=== PATIENT | male | born 1995 | race Caucasian/White ===

== ENCOUNTER 2020-12-31 17:16 | Inpatient (IN) | payer OTHER, SELFPAY ==
[2020-12-31 19:23] VITALS: BMI 23.7
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
[2021-01-01] MEDS: traZODone HCL 50 MG TABLET PO (01:27)
[2021-01-01] MEDS: hydrOXYzine HCL 25 MG TABLET PO ×2 (01:27→23:56)
[2021-01-01] MEDS: Nicotine Polacrilex 2 MG GUM 4 MG BUCCAL ×6 (06:43→23:40)
[2021-01-01 10:00] VITALS: BP 137/74; PULSE 98; RESP 16; TEMP 36.2; O2SAT 99
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
[2021-01-01] MEDS: risperiDONE 2 MG TABLET PO ×2 (11:20→22:38)
--- NOTE | 2021-01-01 14:20 | MHC.CLN ---
RE: CONSULT REVIEWED WITH PT MEAL OPTIONS R/T PREFERENCE FOR VEGAN DIET PT REPORTS HE CONSUMES DAIRY, MILK AND CHEESE PT DISLIKES EGGS BUT ALSO STATED HE HAS CONSUMED MEAT/EGGS IN THE PAST. REVIEWED FOODS AVAILABLE ON FACILITY MENU WITH PT THAT ARE APPROPRIATE DISCUSSED PT PREFERENCE WITH KITCHEN GSR TO VISIT PT DAILY TO REVIEW MEAL CHOICES WILL ADD VEGETARIAN TO CURRENT DIET ORDER
[2021-01-01] MEDS: risperiDONE 1 MG TABLET PO (15:10)
[2021-01-01 18:00] VITALS: BP 130/86; PULSE 110; TEMP 36.7
[2021-01-01] MEDS: QUEtiapine Fumarate 200 MG TABLET PO (19:57)
[2021-01-02] MEDS: Nicotine Polacrilex 2 MG GUM 4 MG BUCCAL ×8 (05:08→20:47)
[2021-01-02] MEDS: risperiDONE 2 MG TABLET PO ×2 (05:59→19:04)
[2021-01-02 06:00] VITALS: BP 129/72; PULSE 111; RESP 16; TEMP 36.4; O2SAT 97
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
[2021-01-02] MEDS: risperiDONE 1 MG TABLET PO (13:37)
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
[2021-01-02 18:27] VITALS: BP 147/64; PULSE 90; TEMP 36.7
[2021-01-02] MEDS: QUEtiapine Fumarate 200 MG TABLET PO (20:02)
[2021-01-03 06:00] VITALS: BP 139/75; PULSE 78; RESP 16; TEMP 36.2; O2SAT 98
[2021-01-03] MEDS: risperiDONE 2 MG TABLET PO ×2 (08:09→19:59)
[2021-01-03 08:21] LABS: MANUAL DIFF FLAG NO
[2021-01-03 08:22] LABS: Basophils Percent Auto 0.6 % (0-2); Hemoglobin 14.5 g/dl (14.0-18.0); Imm Gran Abs Auto 0.02 X10*3/uL (0.00-0.03); Imm Gran Pct Auto 0.4 % (0.0-0.4); Lymphocytes Absolute Auto 1.8 X10*3/uL (1.2-4.9); Lymphocytes Percent Auto 34.2 % (20-40); Mean Corpuscular HGB Conc 34.5 g/dl (31.0-36.0); Mean Corpuscular Hemoglobin 31.3 pg (27.0-33.0); Mean Corpuscular Volume 90.7 fL (80-98); Mean Platelet Volume 10.4 fL (9.4-12.4); Monocytes Absolute Auto 0.6 X10*3/uL (0.1-1.2); Monocytes Percent Auto 11.5 % (2-11); Neutrophils Absolute Auto 2.8 X10*3/uL (2.0-8.3); Neutrophils Percent Auto 53.3 % (45-73); Platelet Count 271 X10*3/uL (160-400); Red Blood Count 4.63 X10*6/uL (4.60-5.80); Red Cell Distribution Width 11.9 % (11.0-16.0); White Blood Count 5.3 X10*3/uL (4.8-10.8)
[2021-01-03] MEDS: Nicotine Polacrilex 2 MG GUM 4 MG BUCCAL ×2 (09:12→21:26)
[2021-01-03 09:55] LABS: Anion Gap 10 (12-20); Blood Urea Nitrogen 18 mg/dL (9-16); Carbon Dioxide 30 mmol/L (22-29); Chloride 104 mmol/L (96-108); Cholesterol 161 mg/dL; Creatinine Clr Calc Pharmacy 148.2; Estimated Glomerular Filt Rate > 60; HDL Cholesterol 47 mg/dL; LDL Cholesterol Calculated 74 mg/dl; Potassium 4.6 mmol/L (3.3-5.1); Sodium 139 mmol/L (135-145); Triglycerides 204 mg/dL
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
[2021-01-03 10:27] LABS: Reflex LDLD? No
[2021-01-03 10:50] LABS: Estimated Average Glucose 88 mg/dL; Hemoglobin A1c % 4.7 %
[2021-01-03] MEDS: risperiDONE 1 MG TABLET PO (13:17)
[2021-01-03 16:15] VITALS: BP 129/71; PULSE 83; TEMP 36.8
[2021-01-03] MEDS: QUEtiapine Fumarate 200 MG TABLET PO (19:58)
[2021-01-03] MEDS: Acetaminophen 325 MG TABLET 650 MG PO (21:26)
[2021-01-04] MEDS: hydrOXYzine HCL 25 MG TABLET PO (01:18)
[2021-01-04] MEDS: QUEtiapine Fumarate 50 MG TABLET PO (01:18)
[2021-01-04] MEDS: Nicotine Polacrilex 2 MG GUM 4 MG BUCCAL ×5 (05:01→16:38)
[2021-01-04 06:00] VITALS: BP 131/81; PULSE 95; RESP 16; TEMP 36.2; O2SAT 98
[2021-01-04] MEDS: risperiDONE 2 MG TABLET PO ×2 (08:15→21:04)
[2021-01-04] MEDS: diphenhydrAMINE HCL 25 MG TABLET 50 MG PO (10:26)
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
[2021-01-04] MEDS: risperiDONE 1 MG TABLET PO (13:36)
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
--- NOTE | 2021-01-04 14:36 | PC.NURSE ---
Spoke to Mother who requested the Doctor not start Depakote tonight We want to do some more research . Dr Balderas notified.
[2021-01-04 18:00] VITALS: BP 141/83; PULSE 113; TEMP 37.1
[2021-01-04] MEDS: traZODone HCL 50 MG TABLET PO (21:04)
[2021-01-05 06:00] VITALS: BP 146/74; PULSE 99; TEMP 36.1; O2SAT 99
[2021-01-05] MEDS: risperiDONE 2 MG TABLET PO ×2 (08:47→20:42)
[2021-01-05] MEDS: Nicotine Polacrilex 2 MG GUM 4 MG BUCCAL ×5 (08:49→18:37)
[2021-01-05] MEDS: risperiDONE 1 MG TABLET PO (14:25)
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
[2021-01-05 18:00] VITALS: BP 142/70; PULSE 91; TEMP 36.8
[2021-01-05] MEDS: traZODone HCL 50 MG TABLET PO (20:41)
[2021-01-06 06:00] VITALS: BP 133/74; PULSE 86; RESP 16; TEMP 36.4; O2SAT 86
[2021-01-06] MEDS: risperiDONE 2 MG TABLET PO (08:48)
[2021-01-06] MEDS: hydrOXYzine HCL 25 MG TABLET PO (10:46)
[2021-01-06] MEDS: risperiDONE 1 MG TABLET PO (13:23)
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
[2021-01-06 16:46] VITALS: BP 109/65; PULSE 88; TEMP 36.8; O2SAT 97
[2021-01-06] MEDS: Nicotine Polacrilex 2 MG GUM 4 MG BUCCAL (17:56)
[2021-01-06] MEDS: traZODone HCL 50 MG TABLET PO (20:46)
[2021-01-06] MEDS: risperiDONE 3 MG TABLET PO (20:46)
[2021-01-07] MEDS: Nicotine Polacrilex 2 MG GUM 4 MG BUCCAL ×4 (04:50→20:41)
[2021-01-07 06:00] VITALS: BP 131/80; PULSE 96; TEMP 36.7; O2SAT 98
[2021-01-07] MEDS: risperiDONE 2 MG TABLET PO (08:29)
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
[2021-01-07 18:00] VITALS: BP 139/87; PULSE 98; TEMP 36.6; O2SAT 98
[2021-01-07] MEDS: risperiDONE 3 MG TABLET PO (20:38)
[2021-01-07] MEDS: traZODone HCL 50 MG TABLET PO (22:35)
[2021-01-08 08:30] VITALS: BP 130/89; PULSE 101; RESP 16; TEMP 36.8; O2SAT 96
[2021-01-08] MEDS: risperiDONE 2 MG TABLET PO (08:30)
[2021-01-08] MEDS: Nicotine Polacrilex 2 MG GUM 4 MG BUCCAL (09:47)
== END 2021-01-08 10:30 | disposition home or self-care (01) | DRG 753 ==
PROVIDERS: Admitting Provider Psychiatry & Neurology Psychiatry; PCP Internal Medicine; Visit Provider Psychiatry & Neurology Psychiatry
DX: F31.9 Bipolar disorder, unspecified (principal); F14.10 Cocaine abuse, uncomplicated; F17.210 Nicotine dependence, cigarettes, uncomplicated; F41.9 Anxiety disorder, unspecified; F90.9 Attention-deficit hyperactivity disorder, unspecified type; Z71.6 Tobacco abuse counseling; Z88.2 Allergy status to sulfonamides; Z79.899 Other long term (current) drug therapy
CPT/HCPCS: 36415; 80051; 80061; 82565; 83036; 84520; 85025; Q0163

== ENCOUNTER 2022-12-31 10:03 | Inpatient (IN) | payer OTHER, SELFPAY ==
[2022-12-31 10:09] VITALS: BP 140/80; PULSE 116; O2SAT 98
[2022-12-31 10:13] VITALS: BP 148/83; PULSE 97; RESP 18; TEMP 36.5; O2SAT 99; BMI 23.2
--- NOTE | 2022-12-31 10:25 | ED_ITS ---
HPI - Psych General Chief Complaint: Psychiatric Symptoms Stated Complaint: MANIC EPISODE,AMS Time Seen by Provider: 12/31/22 10:11 Source: patient, RN notes reviewed and old records reviewed History of Present Illness HPI Narrative: 27-year-old male with a past medical history of bipolar, substance abuse, ADHD, anxiety, presenting to the ED via EMS from home after mother called 911 due to patient exhibiting manic episode. History obtained from mother who states patient has been on and off his medications x months however patient's symptoms became unmanageable last night. Mother states patient was up all night drinking energy drinks, excessively cleaning home and they woke up to all of her belongings being out on the front lawn. mother also reports patient was drinking large bottle of Tequila last night. Patient denies EtOH or illicit substance use, SI/HI, auditory or visual hallucinations, injury/trauma or fall Related Data Previous Rx's Medication Instructions Recorded hydroxyzine HCl 25 mg tablet 25 mg PO TID PRN mild Anxiety 30 01/07/21 days #30 tabs risperidone 2 mg tablet 2 mg PO DAILY 30 days #30 tabs 01/07/21 risperidone 3 mg tablet 3 mg PO BEDTIME 30 days #30 tabs 01/07/21 trazodone 50 mg tablet 50 mg PO BEDTIME PRN insomnia 30 01/07/21 days #30 tabs Allergies Allergy/AdvReac Type Severity Reaction Status Date / Time strawberry Allergy Mild Itching Verified 12/31/22 10:34 cefazolin Allergy Unknown Itching Verified 12/31/22 10:34 sulfamethoxazole Allergy Unknown Itching Verified 12/31/22 10:34 [From Bactrim] trimethoprim [From Bactrim] Allergy Unknown Itching Verified 12/31/22 10:34 lorazepam [From Ativan] AdvReac Agitated Verified 12/31/22 10:34 Review of Systems 2 Review of Systems: Constitutional: No Fever, No Chills, No Fatigue, No Malaise ENT/Mouth: No Ear Pain, No sore throat, No Rhinorrhea, No Swallowing Difficulty Eyes: No Eye Pain, No Swelling, No Redness, No Foreign Body, No Discharge, No Vision Changes Cardiovascular: No Chest Pain, No SOB, No Palpitations Respiratory: No Cough, No Sputum, , No Dyspnea Gastrointestinal: No Nausea, No Vomiting, No Diarrhea, No Constipation, No Abdominal pain Genitourinary: No Dysuria, No Urinary Frequency, No Hematuria, No Flank Pain Musculoskeletal: No joint pain, No Myalgias, No Joint Swelling Skin: No Skin Lesions, No rash Neuro: No Weakness, No Numbness, No Headache Psych: No Anxiety/Panic, No Depression, No SI/HI/AH/VH, +Social Issues, +manic Yes all other systems are reviewed and are negative Constitutional: Constitutional: Reports as per [facility] Past Medical History Attestation statement: The following information was validated with the patient. Source: old records reviewed Medical History Bipolar 1 disorder Cannabis abuse ADHD Anxiety Social History Social History Household Members: Family Housing: House Do you presently have visiting nurse or other home services: No Patient Tobacco Use Status: Current everyday Tobacco user Tobacco use type: Cigar e-Cigarette/Vaping Use: Currently Using Second Hand Smoke Exposure: No Substance Use Type: Marijuana Advance Directives: No Healthcare Proxy: No Guardian: No service: No Sexual orientation: Did not discuss. Physical Exam 2 Vital Signs: Vital Signs: Last Vital Signs Temp 97.7 F 12/31/22 10:13 Pulse 97 12/31/22 10:13 Resp 18 12/31/22 10:13 BP 148/83 H 12/31/22 10:13 Pulse Ox 99 12/31/22 10:13 O2 Del Method Room Air 12/31/22 10:13 BMI result Body Mass Index 23.2 Const: General: cooperative and no acute distress O rientation/consciousness: patient oriented x3 Limitations: no limitations HEENT: Head: Yes normal to inspection and Yes atraumatic Ears: hearing grossly normal bilaterally General nose exam: Normal external nose present Face and sinus: Yes normal facial exam Eyes: General: appearance normal, both eyes and all related structures EOM: EOMs intact bilaterally Neck: Neck: Yes normal visual inspection and Yes no meningeal signs Resp: Effort & Inspection: normal respiratory effort and no respiratory distress Auscultation: clear to auscultation bilaterally Cardio: Rate: regular rate Heart sounds: S1 normal heart sound present and S2 normal heart sound present GI: Inspection: Yes normal to inspection Palpation (GI): Soft to palpation, nontender, no guarding and not rigid : General: Yes no CVA tenderness Back/Spine/Pelvis: Back: no CVA tenderness Skin: Rashes: no rashes Wounds: no wounds Neuro: General: patient oriented x3, tone normal, no meningeal signs and CN's II-XI intact bilaterally Cranial nerves: Yes CN's II-XII intact bilaterally Gait exam (Neuro): Normal gait present Extrem: General: Yes normal to inspection Psych: Attitude: cooperative Thought process: Confabulating thought process present Thought content: suicidality and no homicidality Insight: Poor insight present (Psych) Judgement: Poor judgement present (Psych) Course Course Course Narrative: - labs reassuring. -CRUM pending -CARE team evaluated patient and he will now be inpatient bed search. Physician observation initiated at 14:50 Medications Administered Discontinued Medications Generic Name Dose Route Start Last Admin Trade Name Freq PRN Reason Stop Dose Admin Risperidone 2 mg 12/31/22 13:58 12/31/22 14:08 Risperidone 2 Mg Tablet PO 12/31/22 13:59 2 mg ONCE ONE Administration Medical Decision Making Medical Decision Making [facility] Narrative: 27-year-old male with a past medical history of bipolar, substance abuse, ADHD, anxiety, presenting to the ED via EMS from home after mother called 911 due to patient exhibiting manic episode. on exam vital signs stable, NAD, nontoxic appearing patient, cooperative during this writers evaluation, not forthcoming with information. history obtained from mother. Rule out metabolic/infectious etiologies vs medication noncompliance vs polysubstance abuse plan: Labs, tox screen, CARE team consult Please refer to course for remaining clinical decision making, interpretation of labs/imaging results, and discussions with consultants and/or family members. Differential Diagnosis Differential Diagnoses: The differential diagnosis associated with the presentation includes As above Admission/Observation Consideration of admission/observation: Escalation of care including admission/observation considered Consult Healthcare Provider Management of the patient was discussed with: Behavioral Health Provider Lab Data [facility] Lab Attestation statement: I reviewed the patient's lab results. 12/31/22 10:49 12/31/22 10:49 Labs: Lab Results 12/31/22 Range/Units 10:49 WBC 9.6 (4.8-10.8) X10*3/uL RBC 5.04 (4.60-5.80) X10*6/uL Hgb 15.7 (14.0-18.0) g/dl Hct 45.4 (42.0-52.0) % MCV 90.1 (80.0-98.0) fL MCH 31.2 (27.0-33.0) pg MCHC 34.6 (31.0-36.0) g/dl RDW 11.9 (11.0-16.0) % Plt Count 276 (160-400) X10*3/uL MPV 11.0 (9.4-12.4) fL Immature Gran % (Auto) 0.3 (0.0-0.4) % Neut % (Auto) 85.9 H (45-73) % Lymph % (Auto) 8.8 L (20-40) % [place] % (Auto) 4.6 (2-11) % Eos % (Auto) 0.0 (0-4) % Baso % (Auto) 0.4 (0-2) % Lymph # (Auto) 0.8 L (1.2-4.9) X10*3/uL [place] # (Auto) 0.4 (0.1-1.2) X10*3/uL Eos # (Auto) 0.0 (0.0-0.4) X10*3/uL Baso # (Auto) 0.0 (0.0-0.2) X10*3/uL Abs Immat Gran (auto) 0.03 (0.00-0.03) X10*3/uL Absolute Neuts (auto) 8.3 (2.0-8.3) x10*3/uL Absolute Nucleated RBC 0.000 (0.0-0.012) X10*3/uL Nucleated RBC % (auto) 0.0 (0.0-0.2) /100WBC Sodium 141 (135-145) mmol/L Potassium 4.3 (3.3-5.1) mmol/L Chloride 104 (96-108) mmol/L Carbon Dioxide 27 (22-29) mmol/L Anion Gap 14 (12-20) BUN 17 H (9-16) mg/dL Creatinine 0.99 (0.5-1.4) mg/dL Estim Creat Clear Calc 117.7 Estimated GFR > 60 Random Glucose 121 H (60-115) mg/dL Calcium 10.2 (8.4-10.2) mg/dL Magnesium 2.2 (1.6-2.6) mg/dL Total Bilirubin 1.6 H (0.0-1.0) mg/dL Direct Bilirubin 0.5 (0.0-0.5) mg/dL AST 22 (5-37) U/L ALT 32 (0-40) U/L Alkaline Phosphatase 49 (39-117) U/L Total Protein 7.8 (6.5-8.0) g/dL Albumin 4.9 (3.5-5.0) g/dL Salicylates < 5.0 L (15-30) mg/dL Acetaminophen < 17 (<30) mcg/mL Ethyl Alcohol < 10 mg/dL COVID-19 ([facility]) Negative (Negative) COVID-19 Clin Com See Note Radiology Impression Discussion of test interpretation with radiology: I have reviewed the radiologist's reading. Independent Historian Clinical information obtained from an independent historian. History obtained from or confirmed by: Parent and EMS External Record Review External record reviewed: Inpatient record, Office record, Outpatient record, Prior outpatient labs, Prior outpatient radiology, Primary care record and Outside ED record Tests considered The following testing was considered but not selected: As above Chronic Conditions Patient?s care impacted by: Other Social Determinants Patient?s care significantly limited by Social Determinants of Health including: Alcoholism and drug addiction in family Discharge Plan Discharge Clinical Impression: Manic behavior, Noncompliance with medications Patient Disposition: Still a Patient Prescriptions: No Action hydroxyzine HCl 25 mg Tablet 25 mg PO TID PRN (Reason: mild Anxiety) 30 Days Qty: 30 0RF risperidone 2 mg Tablet 2 mg PO DAILY 30 Days Qty: 30 0RF risperidone 3 mg Tablet 3 mg PO BEDTIME 30 Days Qty: 30 0RF trazodone 50 mg Tablet 50 mg PO BEDTIME PRN (Reason: insomnia) 30 Days Qty: 30 0RF Interventions: [place]-Suicide Risk Severity Scale Last Done: 12/31/22 14:43
--- NOTE | 2022-12-31 10:38 | ECG_ITS ---
Test Reason : clearance Blood Pressure : / mmHG Vent. Rate : 085 BPM Atrial Rate : 085 BPM P-R Int : 148 ms QRS Dur : 078 ms QT Int : 328 ms P-R-T Axes : 055 068 023 degrees QTc Int : 390 ms Normal sinus rhythm Normal ECG No previous ECGs available Referred By: Lissette Corbin Electronically Signed By:SULEIMAN ROLAND
[2022-12-31 10:56] LABS: MANUAL DIFF FLAG NO
[2022-12-31 10:58] LABS: Basophils Percent Auto 0.4 % (0-2); Hematocrit 45.4 % (42.0-52.0); Hemoglobin 15.7 g/dl (14.0-18.0); Imm Gran Abs Auto 0.03 X10*3/uL (0.00-0.03); Imm Gran Pct Auto 0.3 % (0.0-0.4); Lymphocytes Absolute Auto 0.8 X10*3/uL (1.2-4.9); Lymphocytes Percent Auto 8.8 % (20-40); Mean Corpuscular HGB Conc 34.6 g/dl (31.0-36.0); Mean Corpuscular Hemoglobin 31.2 pg (27.0-33.0); Mean Corpuscular Volume 90.1 fL (80.0-98.0); Monocytes Absolute Auto 0.4 X10*3/uL (0.1-1.2); Monocytes Percent Auto 4.6 % (2-11); Neutrophils Absolute Auto 8.3 x10*3/uL (2.0-8.3); Neutrophils Percent Auto 85.9 % (45-73); Platelet Count 276 X10*3/uL (160-400); Red Blood Count 5.04 X10*6/uL (4.60-5.80); Red Cell Distribution Width 11.9 % (11.0-16.0); White Blood Count 9.6 X10*3/uL (4.8-10.8)
[2022-12-31 11:09] LABS: COVID-19 Test Negative (Negative); IDNOW Serial# BCCEAD1C
[2022-12-31 11:28] LABS: Alanine Aminotransferase 32 U/L (0-40); Albumin Level 4.9 g/dL (3.5-5.0); Alkaline Phosphatase 49 U/L (39-117); Anion Gap 14 (12-20); Aspartate Amino Transferase 22 U/L (5-37); Bilirubin Direct 0.5 mg/dL (0.0-0.5); Bilirubin Total 1.6 mg/dL (0.0-1.0); Blood Urea Nitrogen 17 mg/dL (9-16); Calcium 10.2 mg/dL (8.4-10.2); Carbon Dioxide 27 mmol/L (22-29); Chloride 104 mmol/L (96-108); Creatinine Clr Calc Pharmacy 117.7; Estimated Glomerular Filt Rate > 60; Ethanol < 10 mg/dL; Glucose Random 121 mg/dL (60-115); Magnesium 2.2 mg/dL (1.6-2.6); Potassium 4.3 mmol/L (3.3-5.1); Sodium 141 mmol/L (135-145); Total Protein 7.8 g/dL (6.5-8.0)
[2022-12-31 11:54] LABS: Salicylate < 5.0 mg/dL (15-30)
--- NOTE | 2022-12-31 13:44 | PC.NURSE ---
I have prompted the pt mult times for a urine sample, he said that he would after eating, then he went back to bed, prompted again and he said that he couldn't yet and layed back in bed, pt acted as if he fell asleep instantly and when he woke 10 seconds later he acted as if he had no idea what I was talking about when i asked him again.
[2022-12-31 13:58] LABS: Acetaminophen LAB < 17 mcg/mL (<30)
[2022-12-31] MEDS: risperiDONE 2 MG TABLET PO (14:08)
--- NOTE | 2022-12-31 14:38 | PC.NURSE ---
pt sleeping, took his respiridone and back to sleep
--- NOTE | 2022-12-31 17:00 | PC.NURSE ---
patient refusing to give urine or allow for EKG at this time. This RN educated patient on need for both of these tests however, patient rolled over in bed and stopped talking.
--- NOTE | 2022-12-31 18:43 | PC.NURSE ---
patient was sleeping the majority of the day, now up eating dinner. Offers no complaints to this RN. Continue to refuse to give urine
[2022-12-31 19:12] LABS: Amphetamine Screen Urine Not Detected (Not Detect); Barbiturates, Urine Not Detected (Not Detect); Benzodiazepines Screen Urine Not Detected (Not Detect); Cannabinoid Screen Urine Not Detected (Not Detect); Cocaine Screen Urine Not Detected (Not Detect); Fentanyl, urine Not Detected (Not Detect); Opiate Screen Urine Not Detected (Not Detect); Phencyclidine Screen Urine Not Detected (Not Detect)
[2022-12-31 19:27] VITALS: BP 134/85; PULSE 108; RESP 16; TEMP 36.1; O2SAT 99; BMI 25.8
--- NOTE | 2022-12-31 22:44 | PC.ADMIT ---
Pt is a 27year old male admitted for psychosis and paranoia. Pt is manic at this time. pt has a PMH of bipolar, anxiety disorder, ADHD, psychosis, and inpatient admissions. during admission, pt signed legals and CV. pt tox screen is positive for THC. pt signed a release for mother, and pt mother reported that risperdone worked the best for his bipolar and he was been erratic for a few weeks. pt mom also reported that many medications including lorazepam and wellbutrin have opposite effects causing agitation and restlessness. start treatment plan and promote safety. pt received a flu shot today.
[2023-01-01 07:55] LABS: Estimated Average Glucose 82 mg/dL; Hemoglobin A1c % 4.5 % (<6.0)
[2023-01-01 08:00] VITALS: BP 142/87; PULSE 78; RESP 18; TEMP 36.6; O2SAT 97
[2023-01-01 08:09] LABS: Alanine Aminotransferase 37 U/L (0-40); Albumin Level 4.7 g/dL (3.5-5.0); Alkaline Phosphatase 59 U/L (39-117); Anion Gap 13 (12-20); Aspartate Amino Transferase 22 U/L (5-37); Bilirubin Total 1.3 mg/dL (0.0-1.0); Blood Urea Nitrogen 15 mg/dL (9-16); Calcium 9.7 mg/dL (8.4-10.2); Carbon Dioxide 27 mmol/L (22-29); Chloride 106 mmol/L (96-108); Cholesterol 161 mg/dL (<200); Creatinine Clr Calc Pharmacy 132.4; Estimated Glomerular Filt Rate > 60; Glucose Fasting 96 mg/dL (60-99); HDL Cholesterol 58 mg/dL (>40); LDL Cholesterol Calculated 73 mg/dL (<100); Potassium 3.6 mmol/L (3.3-5.1); Sodium 142 mmol/L (135-145); Total Protein 7.6 g/dL (6.5-8.0); Triglycerides 151 mg/dL (<150)
[2023-01-01 08:26] LABS: Thyroid Stimulating Hormone 0.97 uIU/mL (0.32-4.0)
[2023-01-01 08:34] LABS: Folate 13.4 ng/mL (> or = 4.0); Vitamin B12 662 pg/mL (200-900)
[2023-01-01] MEDS: risperiDONE 2 MG TABLET PO (09:04)
--- NOTE | 2023-01-01 12:31 | HO.PSYCHPN ---
Subjective Subjective Date of Service: 01/01/23 Reason For Visit: Psychosis Subjective Notes: Conditional Voluntary Guardianship: Yes (? parents) Medical Problems Affecting Mental Status: No Interim History: Patient reported to be improved by nursing- pt is taking risperidone- but is ambivalent about it- upset because he feels his prescriber outpatient listens to his parents more than him and therefore has him on too much risperidone, he says he is on less here so it isn't a problem at this dose. Nursing reports he still is toward manic- as needs reminders to put clothes on when he leaves his room. Medication Compliance: Yes Side effects from medications: Yes (can't specify but feels he needs to offset with mj/etoh) Attending Groups: Intermittent Review of Systems Acute medical concerns: No Medical Review of Systems: unchanged Mental Status Exam Mental Status Exam Narrative: dressed appropriately Patient Appearance: Unkempt (hair) Patient Orientation: Person, Place, Time and Situation Level of Consciousness: Awake Patient Behavior: Appropriate, Guarded, Cooperative and Passive Mood Description: Calm Affect Description: Blunted Patient Cognition Impaired: No Ability to Follow Directions: Fair Speech Pattern: Clear Thought Process: Distracted Thought Content: positive for Intact Abnormal Motor Activity Signs and Symptoms: Restlessness Judgement: Poor Diagnostics Vital Signs (24Hr): Vital Signs - 24 hr 12/31/22 19:27 01/01/23 08:00 Temperature 96.9 F 97.9 F Pulse Rate 108 H 78 Respiratory Rate 16 18 Blood Pressure 134/85 142/87 H Pulse Oximetry 99 97 Oxygen Delivery Method Room Air Room Air BMI result Body Mass Index 25.8 Labs 12/31/22 10:49 01/01/23 07:33 Labs: Laboratory Results - last 48 hr 12/31/22 12/31/22 01/01/23 10:49 18:57 07:33 WBC 9.6 RBC 5.04 Hgb 15.7 Hct 45.4 MCV 90.1 MCH 31.2 MCHC 34.6 RDW 11.9 Plt Count 276 MPV 11.0 Immature Gran % (Auto) 0.3 Neut % (Auto) 85.9 H Lymph % (Auto) 8.8 L [place] % (Auto) 4.6 Eos % (Auto) 0.0 Baso % (Auto) 0.4 Lymph # (Auto) 0.8 L [place] # (Auto) 0.4 Eos # (Auto) 0.0 Baso # (Auto) 0.0 Abs Immat Gran (auto) 0.03 Absolute Neuts (auto) 8.3 Absolute Nucleated RBC 0.000 Nucleated RBC % (auto) 0.0 Sodium 141 142 Potassium 4.3 3.6 Chloride 104 106 Carbon Dioxide 27 27 Anion Gap 14 13 BUN 17 H 15 Creatinine 0.99 0.88 Estim Creat Clear Calc 117.7 132.4 Estimated GFR > 60 > 60 Random Glucose 121 H Fasting Glucose 96 Estimat Average Glucose 82 Hemoglobin A1c % 4.5 Calcium 10.2 9.7 Magnesium 2.2 Total Bilirubin 1.6 H 1.3 H Direct Bilirubin 0.5 AST 22 22 ALT 32 37 Alkaline Phosphatase 49 59 Total Protein 7.8 7.6 Albumin 4.9 4.7 Triglycerides 151 H Cholesterol 161 LDL Cholesterol, Calc 73 HDL Cholesterol 58 Vitamin B12 662 Folate 13.4 TSH 0.97 Salicylates < 5.0 L Urine Opiates Screen Not Detected Urine Fentanyl Screen Not Detected Acetaminophen < 17 Ur Barbiturates Screen Not Detected Ur Phencyclidine Scrn Not Detected Ur Amphetamines Screen Not Detected U Benzodiazepines Scrn Not Detected Urine Cocaine Screen Not Detected U Marijuana (THC) Screen Not Detected Ethyl Alcohol < 10 COVID-19 ([facility]) Negative COVID-19 Clin Com See Note Medications Medications Current Medications Acetaminophen (Acetaminophen 325 Mg Tablet) 650 mg PO Q6H PRN PRN Reason: Headache/Pain Mild Scale (1-3) Al Hydroxide/Mg Hydroxide (Magnesium Hydrox/Alum Hydrox 30 Ml Oral.Susp) 30 ml PO Q6H PRN PRN Reason: Heartburn/Nausea Hydroxyzine HCl (Hydroxyzine Hcl 25 Mg Tablet) 25 mg PO Q6H PRN PRN Reason: Anxiety Magnesium Hydroxide (Milk Of Magnesia 30 Ml Oral.Susp) 30 ml PO DAILY PRN PRN Reason: Constipation Risperidone (Risperidone 2 Mg Tablet) 2 mg PO DAILY JESSICA Last Admin: 01/01/23 09:04 Dose: 2 mg Trazodone HCl (Trazodone Hcl 50 Mg Tablet) 50 mg PO BEDTIME MRX1 PRN PRN Reason: Insomnia Allergies Allergies Allergy/AdvReac Type Severity Reaction Status Date / Time strawberry Allergy Mild Itching Verified 12/31/22 10:34 cefazolin Allergy Unknown Itching Verified 12/31/22 10:34 sulfamethoxazole Allergy Unknown Itching Verified 12/31/22 10:34 [From Bactrim] trimethoprim [From Bactrim] Allergy Unknown Itching Verified 12/31/22 10:34 lorazepam [From Ativan] AdvReac Agitated Verified 12/31/22 10:34 Assessment & Plan Time Spent With Patient Time: Total time managing care of this patient today ____ minutes.
--- NOTE | 2023-01-02 07:10 | P.HPPS_ITS ---
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) and not needing much sleep - they call it manic, I call it happy He had stopped risperidone as the dose he was on made him tired and he couldn't play soccerr or have the energy he likes- His mother called ambulance due to wanting psych eval for him for manic behaviors- and being off his meds in crisis pt was not cooperative and said bizarre things/appeared to be responding to internal stimuli- saying things my blood will lead you to area 51 To this provider he reports can sleep less than 3-4 hours for years but can also sleep 10 hrs Past Psychiatric History: Patient's mother reports that in 2016 following cocaine use, patient accidentally overdosed on melatonin taking about 500 mg since he could not sleep. He was having pressured speech, weird behavior and so she took him to [facility] where he was started on Risperdal to good effect. He was discharged and almost immediately stopped taking his medications and started smoking cannabis again daily. In 2018, patient had his 2nd psychiatric hospitalization where he was floridly manic, caring garbage and recycling from the garage to his room, not sleeping, not eating, grandiose themes saying he was going to run for [place] and live on only water, not making sense and rambling. He was again brought to [facility], again started on Risperdal and 2 weeks later discharged. Patient fell into the same pattern of going off medication and smoking cannabis when he was again manic admitted to [facility] in the fall of 2019. Same pattern again until this admission. Mother reports patient had trial of Wellbutrin during which time he did very well and was productive Mother reports patient has history of severe anxiety starting in childhood as well as ADHD. Medical Evaluation Reviewed: Yes no medical findings report that mother said - [facility] Medical History Bipolar 1 disorder Cannabis abuse ADHD Anxiety Family History: Patient's maternal 1st cousin has diagnosed bipolar disorder Maternal side of family has numerous substance abuse issues Social History: Patient lives at home with his supportive mother and father and 2 younger siblings; graduated high school in 2016; played basketball and soccer; some college however has bounced from college to college due to anxiety, ADHD and likely subacute bipolar prodrome. Substance History: lian now says no as he has not medical card and doesn't want to wait in line Trauma History: None mentioned- denies hx of violence, says he was brought back to life at [facility] years ago when he holding his breath- Diagnostics Vital Signs (24Hr): Vital Signs - 24 hr 01/01/23 08:00 Temperature 97.9 F Pulse Rate 78 Respiratory Rate 18 Blood Pressure 142/87 H Pulse Oximetry 97 Oxygen Delivery Method Room Air BMI result Body Mass Index 25.8 Labs 12/31/22 10:49 01/01/23 07:33 Labs: Laboratory Results - last 48 hr 12/31/22 12/31/22 01/01/23 10:49 18:57 07:33 WBC 9.6 RBC 5.04 Hgb 15.7 Hct 45.4 MCV 90.1 MCH 31.2 MCHC 34.6 RDW 11.9 Plt Count 276 MPV 11.0 Immature Gran % (Auto) 0.3 Neut % (Auto) 85.9 H Lymph % (Auto) 8.8 L [place] % (Auto) 4.6 Eos % (Auto) 0.0 Baso % (Auto) 0.4 Lymph # (Auto) 0.8 L [place] # (Auto) 0.4 Eos # (Auto) 0.0 Baso # (Auto) 0.0 Abs Immat Gran (auto) 0.03 Absolute Neuts (auto) 8.3 Absolute Nucleated RBC 0.000 Nucleated RBC % (auto) 0.0 Sodium 141 142 Potassium 4.3 3.6 Chloride 104 106 Carbon Dioxide 27 27 Anion Gap 14 13 BUN 17 H 15 Creatinine 0.99 0.88 Estim Creat Clear Calc 117.7 132.4 Estimated GFR > 60 > 60 Random Glucose 121 H Fasting Glucose 96 Estimat Average Glucose 82 Hemoglobin A1c % 4.5 Calcium 10.2 9.7 Magnesium 2.2 Total Bilirubin 1.6 H 1.3 H Direct Bilirubin 0.5 AST 22 22 ALT 32 37 Alkaline Phosphatase 49 59 Total Protein 7.8 7.6 Albumin 4.9 4.7 Triglycerides 151 H Cholesterol 161 LDL Cholesterol, Calc 73 HDL Cholesterol 58 Vitamin B12 662 Folate 13.4 TSH 0.97 Salicylates < 5.0 L Urine Opiates Screen Not Detected Urine Fentanyl Screen Not Detected Acetaminophen < 17 Ur Barbiturates Screen Not Detected Ur Phencyclidine Scrn Not Detected Ur Amphetamines Screen Not Detected U Benzodiazepines Scrn Not Detected Urine Cocaine Screen Not Detected U Marijuana (THC) Screen Not Detected Ethyl Alcohol < 10 COVID-19 ([facility]) Negative COVID-19 Clin Com See Note Meds/Allergies Meds Home Medications Medication Instructions Recorded Confirmed Type bupropion HCl 150 mg 24 hr tablet, 150 mg PO DAILY 12/31/22 12/31/22 History extended release Allergies Allergies Allergy/AdvReac Type Severity Reaction Status Date / Time strawberry Allergy Mild Itching Verified 12/31/22 10:34 cefazolin Allergy Unknown Itching Verified 12/31/22 10:34 sulfamethoxazole Allergy Unknown Itching Verified 12/31/22 10:34 [From Bactrim] trimethoprim [From Bactrim] Allergy Unknown Itching Verified 12/31/22 10:34 lorazepam [From Ativan] AdvReac Agitated Verified 12/31/22 10:34 Mental Status Exam Mental Status Exam Narrative: dressed Patient Appearance: Unkempt (hair) Patient Orientation: Person, Place, Time and Situation Level of Consciousness: Awake and Alert Patient Behavior: Talkative, Hyperactive, Cooperative, Distractible, Impulsive and Poor Eye Contact Mood Description: Happy Affect Description: Expansive Patient Cognition Impaired: No Ability to Follow Directions: Fair Speech Pattern: Clear Hallucinations: None (denies) Delusions: Grandiose (?) Thought Process: Racing Thought Content: positive for Flight of Ideas Depressive Symptoms: Insomnia and Increased Irritability Abnormal Motor Activity Signs and Symptoms: Hyperactivity and Restlessness Judgement: Fair Assessment & Plan Assessment & Plan (1) Noncompliance with medications: Status: Acute Code(s): Z91.148 - Patient's other noncompliance with medication regimen for other reason Assessment and Plan: wants to fire outpatient psychiatrist- due to issues with dosing and communication with parents (2) Manic behavior: Status: Acute Code(s): F30.10 - Manic episode without psychotic symptoms, unspecified Assessment and Plan: agreeing to current dose of risperidone but would like someone to put him on wellbutrin Plan Pt currently agreeing to 2mg started much lower than prior dose which was 5 or so Patient educated on: substance abuse Reason for continued inpatient stay Substantial Risk for: inability to function and rapid decompensation Statement Statement: I have reviewed the history and physical and performed a pertinent examination on my patient. No changes have occurred unless specified. If the History and Physical was not performed prior to admission, the Hospitalist's service will be consulted for completing the admission physical. Time Spent With Patient Time: Total time managing care of this patient today ____ minutes.
[2023-01-02 08:09] VITALS: BP 133/81; PULSE 74; RESP 16; TEMP 36.8; O2SAT 97
[2023-01-02] MEDS: risperiDONE 2 MG TABLET PO (08:17)
--- NOTE | 2023-01-02 11:31 | HO.PSYCHPN ---
Subjective Subjective Date of Service: 01/02/23 Reason For Visit: Psychosis Subjective Notes: 3 Day (signing today) Medical Problems Affecting Mental Status: No Interim History: 27 yo says he is doing fine and would like to go home, doesn't know why people object to him being happy- today denies using mj/etoh to offset -s/e of risperidone this does is ok Medication Compliance: Intermittent (only at certain dose is taking 2mg) Side effects from medications: No Attending Groups: Intermittent Review of Systems Acute medical concerns: No Medical Review of Systems: unchanged Mental Status Exam Mental Status Exam Narrative: dressed Patient Appearance: Unkempt (hair) Patient Orientation: Person, Place, Time and Situation Level of Consciousness: Awake and Alert Patient Behavior: Talkative, Hyperactive, Cooperative, Distractible, Impulsive and Poor Eye Contact Mood Description: Happy Affect Description: Expansive Patient Cognition Impaired: No Ability to Follow Directions: Fair Speech Pattern: Clear Hallucinations: None (denies) Delusions: Grandiose (?) Thought Process: Racing Thought Content: positive for Flight of Ideas Depressive Symptoms: Insomnia and Increased Irritability Abnormal Motor Activity Signs and Symptoms: Hyperactivity and Restlessness Judgement: Fair Diagnostics Vital Signs (24Hr): Vital Signs - 24 hr 01/02/23 08:09 Temperature 98.3 F Pulse Rate 74 Respiratory Rate 16 Blood Pressure 133/81 Pulse Oximetry 97 Oxygen Delivery Method Room Air BMI result Body Mass Index 25.8 Labs 12/31/22 10:49 01/01/23 07:33 Labs: Laboratory Results - last 48 hr 12/31/22 12/31/22 01/01/23 10:49 18:57 07:33 Sodium 142 Potassium 3.6 Chloride 106 Carbon Dioxide 27 Anion Gap 13 BUN 15 Creatinine 0.88 Estim Creat Clear Calc 132.4 Estimated GFR > 60 Fasting Glucose 96 Estimat Average Glucose 82 Hemoglobin A1c % 4.5 Calcium 9.7 Total Bilirubin 1.3 H AST 22 ALT 37 Alkaline Phosphatase 59 Total Protein 7.6 Albumin 4.7 Triglycerides 151 H Cholesterol 161 LDL Cholesterol, Calc 73 HDL Cholesterol 58 Vitamin B12 662 Folate 13.4 TSH 0.97 Salicylates < 5.0 L Urine Opiates Screen Not Detected Urine Fentanyl Screen Not Detected Acetaminophen < 17 Ur Barbiturates Screen Not Detected Ur Phencyclidine Scrn Not Detected Ur Amphetamines Screen Not Detected U Benzodiazepines Scrn Not Detected Urine Cocaine Screen Not Detected U Marijuana (THC) Screen Not Detected Medications Medications Current Medications Acetaminophen (Acetaminophen 325 Mg Tablet) 650 mg PO Q6H PRN PRN Reason: Headache/Pain Mild Scale (1-3) Al Hydroxide/Mg Hydroxide (Magnesium Hydrox/Alum Hydrox 30 Ml Oral.Susp) 30 ml PO Q6H PRN PRN Reason: Heartburn/Nausea Hydroxyzine HCl (Hydroxyzine Hcl 25 Mg Tablet) 25 mg PO Q6H PRN PRN Reason: Anxiety Magnesium Hydroxide (Milk Of Magnesia 30 Ml Oral.Susp) 30 ml PO DAILY PRN PRN Reason: Constipation Risperidone (Risperidone 2 Mg Tablet) 2 mg PO DAILY JESSICA Last Admin: 01/02/23 08:17 Dose: 2 mg Trazodone HCl (Trazodone Hcl 50 Mg Tablet) 50 mg PO BEDTIME MRX1 PRN PRN Reason: Insomnia Allergies Allergies Allergy/AdvReac Type Severity Reaction Status Date / Time strawberry Allergy Mild Itching Verified 12/31/22 10:34 cefazolin Allergy Unknown Itching Verified 12/31/22 10:34 sulfamethoxazole Allergy Unknown Itching Verified 12/31/22 10:34 [From Bactrim] trimethoprim [From Bactrim] Allergy Unknown Itching Verified 12/31/22 10:34 lorazepam [From Ativan] AdvReac Agitated Verified 12/31/22 10:34 Assessment & Plan Assessment & Plan (1) Noncompliance with medications: Status: Acute Code(s): Z91.148 - Patient's other noncompliance with medication regimen for other reason Assessment and Plan: resumed risperidone 2mg without complaint notice negative tox screen though mother said he was using stimulant drinks,mj and etoh.. (2) Manic behavior: Status: Acute Code(s): F30.10 - Manic episode without psychotic symptoms, unspecified Assessment and Plan: will try and inc pm dose to 3mg see if it is further help or even taken by pt - Plan pt on 3 day- expects to go home tuesday- Will need coordination with SW and collateral information- Patient educated on: diagnosis (says no one told him he had bipolar he has insomnia, adhd and ocd ), medication risk/benefits and substance abuse Informed Consent: further education needed Reason for continued inpatient stay Substantial Risk for: inability to function and rapid decompensation Time Spent With Patient Time: Total time managing care of this patient today ____ minutes.
--- NOTE | 2023-01-02 11:57 | PC.NURSE ---
Pt signed 3 day notice up 01/06
[2023-01-02 16:20] VITALS: BP 121/56; PULSE 103; TEMP 36.7
[2023-01-02] MEDS: Nicotine Polacrilex Lozenge 4 MG LOZENGE BUCCAL ×2 (20:51→23:01)
[2023-01-03 08:15] VITALS: BP 146/70; PULSE 88; RESP 16; TEMP 36.6; O2SAT 99
[2023-01-03] MEDS: Nicotine Polacrilex Lozenge 4 MG LOZENGE BUCCAL ×4 (08:23→21:26)
[2023-01-03] MEDS: risperiDONE 3 MG TABLET PO (08:23)
--- NOTE | 2023-01-03 11:28 | HO.PSYCHPN ---
Subjective Subjective Date of Service: 01/03/23 Reason For Visit: Psychosis Subjective Notes: Conditional Voluntary and 3 Day Interim History: Pt reports he needs wellbutrin but it helps with his goal of having to save the world. Pt minimizes events leading to this admission, stating that he is here mostly because there was a family argument and he was trying to help his father. He is taking risperidone. wants to switch 1mg po daily and 2mg po qhs. No aggression towards self or others. Diagnostics Vital Signs (24Hr): Vital Signs - 24 hr 01/02/23 16:20 01/03/23 08:15 Temperature 98.1 F 97.9 F Pulse Rate 103 H 88 Respiratory Rate 16 Blood Pressure 121/56 L 146/70 H Pulse Oximetry 99 Oxygen Delivery Method Room Air BMI result Body Mass Index 25.8 Labs 12/31/22 10:49 01/01/23 07:33 Medications Medications Current Medications Acetaminophen (Acetaminophen 325 Mg Tablet) 650 mg PO Q6H PRN PRN Reason: Headache/Pain Mild Scale (1-3) Al Hydroxide/Mg Hydroxide (Magnesium Hydrox/Alum Hydrox 30 Ml Oral.Susp) 30 ml PO Q6H PRN PRN Reason: Heartburn/Nausea Hydroxyzine HCl (Hydroxyzine Hcl 25 Mg Tablet) 25 mg PO Q6H PRN PRN Reason: Anxiety Magnesium Hydroxide (Milk Of Magnesia 30 Ml Oral.Susp) 30 ml PO DAILY PRN PRN Reason: Constipation Nicotine Polacrilex (Nicotine Polacrilex Lozenge 4 Mg Lozenge) 4 mg BUCCAL Q2H PRN PRN Reason: Nicotine Cravings Last Admin: 01/03/23 10:20 Dose: 4 mg Risperidone (Risperidone 3 Mg Tablet) 3 mg PO DAILY [facility] Last Admin: 01/03/23 08:23 Dose: 3 mg Allergies Allergies Allergy/AdvReac Type Severity Reaction Status Date / Time strawberry Allergy Mild Itching Verified 12/31/22 10:34 cefazolin Allergy Unknown Itching Verified 12/31/22 10:34 sulfamethoxazole Allergy Unknown Itching Verified 12/31/22 10:34 [From Bactrim] trimethoprim [From Bactrim] Allergy Unknown Itching Verified 12/31/22 10:34 lorazepam [From Ativan] AdvReac Agitated Verified 12/31/22 10:34 Assessment & Plan Assessment & Plan (1) Schizoaffective disorder, bipolar type: Status: Acute Code(s): F25.0 - Schizoaffective disorder, bipolar type Plan pt on 3 day- expects to go home tuesday- Will need coordination with SW and collateral information- 01/03- collateral information gathered from mother- pt putting furniture out of the house and irritable but no aggression towards family or himself. he is taking risperidone. 1mg po daily and 2mg po qhs Reason for continued inpatient stay Substantial Risk for: inability to function Time Spent With Patient Time: Total time managing care of this patient today ____ minutes.
[2023-01-03 18:00] VITALS: BP 132/82; PULSE 87; RESP 16; TEMP 36.4; O2SAT 98
[2023-01-04] MEDS: Nicotine Polacrilex Lozenge 4 MG LOZENGE BUCCAL ×9 (00:56→20:24)
[2023-01-04 08:28] VITALS: BP 116/72; PULSE 104; RESP 16; TEMP 36.8; O2SAT 96
[2023-01-04] MEDS: risperiDONE 1 MG TABLET PO (12:27)
[2023-01-04 18:00] VITALS: BP 132/80; PULSE 91; RESP 18; TEMP 36.6; O2SAT 99
[2023-01-04] MEDS: risperiDONE 2 MG TABLET PO (21:03)
--- NOTE | 2023-01-04 21:08 | HO.PSYCHPN ---
Subjective Subjective Date of Service: 01/04/23 Reason For Visit: Psychosis Subjective Notes: 3 Day Interim History: Pt now reports he will just take the risperidone. Pt minimizes events leading to this admission, stating that he is here mostly because there was a family argument and he was trying to help his father. He is taking risperidone. wants to switch 1mg po daily and 2mg po qhs. Declines retracting 3 day. No imminent safety concern in terms of harm to self or others to petition court for involuntary tx. No aggression towards self or others. Review of Systems Review of Systems Constitutional: No Fever, No Chills, No Fatigue, No Malaise ENT/Mouth: No Ear Pain, No sore throat, No Rhinorrhea, No Swallowing Difficulty Eyes: No Eye Pain, No Swelling, No Redness, No Foreign Body, No Discharge, No Vision Changes Cardiovascular: No Chest Pain, No SOB, No Palpitations Respiratory: No Cough, No Sputum, , No Dyspnea Gastrointestinal: No Nausea, No Vomiting, No Diarrhea, No Constipation, No Abdominal pain Genitourinary: No Dysuria, No Urinary Frequency, No Hematuria, No Flank Pain Musculoskeletal: No joint pain, No Myalgias, No Joint Swelling Skin: No Skin Lesions, No rash Neuro: No Weakness, No Numbness, No Headache Psych: No Anxiety/Panic, No Depression, No SI/HI/AH/VH, +Social Issues, +manic Yes all other systems are reviewed and are negative Constitutional: Reports as per HPI Mental Status Exam Mental Status Exam Narrative: dressed Patient Appearance: Unkempt (hair) Patient Orientation: Person, Place, Time and Situation Level of Consciousness: Awake and Alert Patient Behavior: Talkative, Hyperactive, Cooperative, Distractible, Impulsive and Poor Eye Contact Mood Description: Happy Affect Description: Expansive Patient Cognition Impaired: No Ability to Follow Directions: Fair Speech Pattern: Clear Diagnostics Vital Signs (24Hr): Vital Signs - 24 hr 01/04/23 08:28 01/04/23 18:00 Temperature 98.3 F 97.8 F Pulse Rate 104 H 91 Respiratory Rate 16 18 Blood Pressure 116/72 132/80 Pulse Oximetry 96 99 Oxygen Delivery Method Room Air Room Air BMI result Body Mass Index 25.8 Labs 12/31/22 10:49 01/01/23 07:33 Medications Medications Current Medications Acetaminophen (Acetaminophen 325 Mg Tablet) 650 mg PO Q6H PRN PRN Reason: Headache/Pain Mild Scale (1-3) Al Hydroxide/Mg Hydroxide (Magnesium Hydrox/Alum Hydrox 30 Ml Oral.Susp) 30 ml PO Q6H PRN PRN Reason: Heartburn/Nausea Hydroxyzine HCl (Hydroxyzine Hcl 25 Mg Tablet) 25 mg PO Q6H PRN PRN Reason: Anxiety Magnesium Hydroxide (Milk Of Magnesia 30 Ml Oral.Susp) 30 ml PO DAILY PRN PRN Reason: Constipation Nicotine Polacrilex (Nicotine Polacrilex Lozenge 4 Mg Lozenge) 4 mg BUCCAL Q2H PRN PRN Reason: Nicotine Cravings Last Admin: 01/04/23 20:24 Dose: 4 mg Risperidone (Risperidone 1 Mg Tablet) 1 mg PO DAILY JESSICA Last Admin: 01/04/23 12:27 Dose: 1 mg Risperidone (Risperidone 2 Mg Tablet) 2 mg PO BEDTIME JESSICA Last Admin: 01/04/23 21:03 Dose: 2 mg Allergies Allergies Allergy/AdvReac Type Severity Reaction Status Date / Time strawberry Allergy Mild Itching Verified 12/31/22 10:34 cefazolin Allergy Unknown Itching Verified 12/31/22 10:34 sulfamethoxazole Allergy Unknown Itching Verified 12/31/22 10:34 [From Bactrim] trimethoprim [From Bactrim] Allergy Unknown Itching Verified 12/31/22 10:34 lorazepam [From Ativan] AdvReac Agitated Verified 12/31/22 10:34 Assessment & Plan Assessment & Plan (1) Schizoaffective disorder, bipolar type: Status: Acute Code(s): F25.0 - Schizoaffective disorder, bipolar type Plan 1. continue tx. pt reluctant to retract 3 day notice. Reason for continued inpatient stay Substantial Risk for: inability to function Time Spent With Patient Time: Total time managing care of this patient today ____ minutes.
[2023-01-05] MEDS: Nicotine Polacrilex Lozenge 4 MG LOZENGE BUCCAL (03:57)
[2023-01-05 08:00] VITALS: BP 125/73; PULSE 85; RESP 16; TEMP 36.2; O2SAT 99
[2023-01-05] MEDS: risperiDONE 1 MG TABLET PO (08:21)
--- NOTE | 2023-01-05 11:15 | PM.PSYDC ---
DS: Providers Provider Date of Service: 01/06/23 Date of admission: 12/31/22 17:24 Date of discharge: 01/06/23 Primary care physician: Giuliana Physician DS: Diagnosis Discharge Diagnosis (1) Schizoaffective disorder, bipolar type: Status: Acute DS: Medications Discharge Medications Home Medications: Previous Rx's Medication Instructions Recorded risperidone 1 mg tablet 1 mg PO DAILY #30 tabs 01/05/23 risperidone 2 mg tablet 2 mg PO BEDTIME #30 tabs 01/05/23 Mental Status Exam Mental Status Exam Patient Appearance: Appropriate Patient Orientation: Person, Place, Time and Situation Level of Consciousness: Awake and Alert Patient Behavior: Talkative, Hyperactive, Cooperative, Distractible, Impulsive and Poor Eye Contact Mood Description: Appropriate Affect Description: Expansive (less) Patient Cognition Impaired: No Ability to Follow Directions: Fair Speech Pattern: Clear Data Data Completed and Pending Completed studies during hospitalization [Text1]: 12/31/22 12/31/22 01/01/23 10:49 18:57 07:33 WBC 9.6 RBC 5.04 Hgb 15.7 Hct 45.4 MCV 90.1 MCH 31.2 MCHC 34.6 RDW 11.9 Plt Count 276 MPV 11.0 Immature Gran % (Auto) 0.3 Neut % (Auto) 85.9 H Lymph % (Auto) 8.8 L [place] % (Auto) 4.6 Eos % (Auto) 0.0 Baso % (Auto) 0.4 Lymph # (Auto) 0.8 L [place] # (Auto) 0.4 Eos # (Auto) 0.0 Baso # (Auto) 0.0 Abs Immat Gran (auto) 0.03 Absolute Neuts (auto) 8.3 Absolute Nucleated RBC 0.000 Nucleated RBC % (auto) 0.0 Sodium 141 142 Potassium 4.3 3.6 Chloride 104 106 Carbon Dioxide 27 27 Anion Gap 14 13 BUN 17 H 15 Creatinine 0.99 0.88 Estim Creat Clear Calc 117.7 132.4 Estimated GFR > 60 > 60 Random Glucose 121 H Fasting Glucose 96 Estimat Average Glucose 82 Hemoglobin A1c % 4.5 Calcium 10.2 9.7 Magnesium 2.2 Total Bilirubin 1.6 H 1.3 H Direct Bilirubin 0.5 AST 22 22 ALT 32 37 Alkaline Phosphatase 49 59 Total Protein 7.8 7.6 Albumin 4.9 4.7 Triglycerides 151 H Cholesterol 161 LDL Cholesterol, Calc 73 HDL Cholesterol 58 Vitamin B12 662 Folate 13.4 TSH 0.97 Salicylates < 5.0 L Urine Opiates Screen Not Detected Urine Fentanyl Screen Not Detected Acetaminophen < 17 Ur Barbiturates Screen Not Detected Ur Phencyclidine Scrn Not Detected Ur Amphetamines Screen Not Detected U Benzodiazepines Scrn Not Detected Urine Cocaine Screen Not Detected U Marijuana (THC) Screen Not Detected Ethyl Alcohol < 10 COVID-19 ([facility]) Negative COVID-19 Clin Com See Note DS: Summary Hospital Course Hospital Course: HPI: Subjective Notes: Conditional Voluntary (understood and accepted by provider, pt plans to put in 3 day) Narrative: Pt angry and wanting to fire his psychiatrist- feels he listens to parents and not him= on too much risperidone- happy with amount on her 2mg Nursing reports first day yesterday had to be reminded to put on clothes outside his room Pt describes recent event as follows- 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) and not needing much sleep - they call it manic, I call it happy He had stopped risperidone as the dose he was on made him tired and he couldn't play soccerr or have the energy he likes- His mother called ambulance due to wanting psych eval for him for manic behaviors- and being off his meds in crisis pt was not cooperative and said bizarre things/appeared to be responding to internal stimuli- saying things my blood will lead you to area 51 To this provider he reports can sleep less than 3-4 hours for years but can also sleep 10 hrs Past Psychiatric History: Patient's mother reports that in 2017 following cocaine use, patient accidentally overdosed on melatonin taking about 500 mg since he could not sleep. He was having pressured speech, weird behavior and so she took him to [facility] where he was started on Risperdal to good effect. He was discharged and almost immediately stopped taking his medications and started smoking cannabis again daily. In 2019, patient had his 2nd psychiatric hospitalization where he was floridly manic, caring garbage and recycling from the garage to his room, not sleeping, not eating, grandiose themes saying he was going to run for [employer] and live on only water, not making sense and rambling. He was again brought to [facility], again started on Risperdal and 2 weeks later discharged. Patient fell into the same pattern of going off medication and smoking cannabis when he was again manic admitted to [facility] in the fall. Same pattern again until this admission. Mother reports patient had trial of Wellbutrin during which time he did very well and was productive Mother reports patient has history of severe anxiety starting in childhood as well as ADHD. Medical Evaluation Reviewed: Yes no medical findings report that mother said - HOSPITAL COURSE On the unit, pt was admitted on a CV and placed on 15 minutes checks for safety. Pt presented with delusions of the world ending and him having to do something about it. He did not believe these were signs of delusions or psychosis. However, after discussing risks, benefits and alternative treatment options, pt agreed to restart risperidone and adjust the dose to 1 mg po daily and 2 mg po qhs. Pt has shown signs of delusions and psychosis for more than 7 years, however, it appears in the community he has been treated with substance induced psychosis. This verse writer discussed with family and patient that he has symptoms of schizoaffective disorder. We discussed wellbutrin worsening psychosis and delusions, as also witnessed by family. However, pt insisted he needed welbutrin but due to worsening symptoms it was not continued. He was increasingly more visible on the unit. He was social with select peers. Some residual paranoia was still present at time of discharge. Status at Discharge Cognitive/behavioral status at discharge: Pt with less paranoid ideas, less suspicious affect. No SI/HI. Less VH/AH. No signs of aggression towards self or others. Pt sleeping most of the night. Future oriented in agreement to continue treatment and return to parents house. Time Spent with Patient Time attestation: Total time managing care of this patient today _40___ minutes. Time spent: Greater than 30 minutes Discharge Plan Discharge Anticipated Discharge Date/Time: 01/05/23 11:05 Patient Disposition: Home, Self-Care Discharge Diagnosis: Bipolar versus schizoaffective disorder Referrals: Dr. Baudilio Morales: [facility] [Other] - 1 Week (Hospital Discharge Patient's mother has been in contact with practice and [facility] will be in contact with mother, Patsy Pappas to get patient into appointment.) [facility] [Other] (Please use the walk in services as needed. ) Discharge Medications: New risperidone 2 mg Tablet 2 mg PO BEDTIME Qty: 30 0RF risperidone 1 mg Tablet 1 mg PO DAILY Qty: 30 0RF Discontinued hydroxyzine HCl 25 mg Tablet 25 mg PO TID PRN (Reason: mild Anxiety) 30 Days Qty: 30 0RF risperidone 2 mg Tablet 2 mg PO DAILY 30 Days Qty: 30 0RF bupropion HCl 150 mg tablet extended release 24 hr 150 mg PO DAILY Discharge Orders: Discharge Order (Routine); Ordered 01/05/23 Ordered By: Teri Salazar Diet: Regular diet Activity on Discharge: As tolerated Stand Alone Forms: Patient Portal Discharge page, Community Support Care Plan Goals: 1. Maintain mood 2. No SI/HI 3. Less AH/VH, less delusions 4. No aggression towards self or others Health Concerns: follow up with PCP Plan of Treatment: 1. take medications as prescribed 2. go to nearest ED or call 911 in event of emergency Assessment: Pt with brighter, less paranoid. Non labile. No SI/HI. No VH/AH. No signs of aggression towards self or others. Discharge Date/Time: 01/05/23 13:21
== END 2023-01-05 13:21 | disposition home or self-care (01) | DRG 750 ==
LOC: HO.ED 16:00 → HO.PM5 17:32
PROVIDERS: Physician Assistant; Admitting Provider Social Worker; Emergency Provider Emergency Medicine Emergency Medical Services; Visit Provider Social Worker
DX: F25.0 Schizoaffective disorder, bipolar type (principal); Z91.148 Patient's other noncompliance with medication regimen for other reason; F90.9 Attention-deficit hyperactivity disorder, unspecified type; Z23 Encounter for immunization; Z20.822 Contact with and (suspected) exposure to COVID-19; Z79.899 Other long term (current) drug therapy
CPT/HCPCS: 36415; 80048; 80053; 80061; 80076; 80143; 80179; 80307; 82607; 82746; 83036; 83735; 84443; 85025; 87635; 90686; 93005; 99285; S9485

== ENCOUNTER → 2022-12-31 17:24 | Outpatient (BNV) | payer OTHER, SELFPAY | PROVIDERS: Admitting Provider Social Worker; Emergency Provider Emergency Medicine Emergency Medical Services; Visit Provider Social Worker | DX: F25.0 Schizoaffective disorder, bipolar type (principal) | CPT/HCPCS: 99231; 99232; 99239 ==

== ENCOUNTER 2023-02-14 09:46 | Inpatient (IN) | payer OTHER, SELFPAY ==
--- NOTE | 2023-02-14 | ECG_ITS ---
Test Reason : CHECK FOR PROLONG QT Blood Pressure : / mmHG Vent. Rate : 060 BPM Atrial Rate : 060 BPM P-R Int : 150 ms QRS Dur : 092 ms QT Int : 366 ms P-R-T Axes : 057 077 034 degrees QTc Int : 366 ms Sinus rhythm with marked sinus arrhythmia Otherwise normal ECG When compared with ECG of 01-JAN-2023 17:25, Heart rate has decreased Referred By: Claudia Bush Electronically Signed By:RODO MAZA MD
--- NOTE | 2023-02-14 09:51 | ED_ITS ---
HPI - Psych General Chief Complaint: Psychiatric Symptoms Stated Complaint: CRISIS, CALM/COOP PER EMS Time Seen by Provider: 02/14/23 09:50 Source: patient, EMS, RN notes reviewed and old records reviewed Mode of arrival: EMS History of Present Illness HPI Narrative: 27-year-old male with a past medical history of bipolar, substance abuse, ADHD, anxiety, schizoaffective disorder presenting to the ED via EMS with manic behavior at home and medication noncompliance. Per EMS patient using THC and acid which has been exacerbating symptoms. Patient reports insomnia. Patient denies drug use at this time and reports medication compliance. Denies SI/HI. Related Data Previous Rx's Medication Instructions Recorded risperidone 1 mg tablet 1 mg PO DAILY #30 tabs 01/05/23 risperidone 2 mg tablet 2 mg PO BEDTIME #30 tabs 01/05/23 Allergies Allergy/AdvReac Type Severity Reaction Status Date / Time strawberry Allergy Mild Itching Verified 12/31/22 10:34 cefazolin Allergy Unknown Itching Verified 12/31/22 10:34 sulfamethoxazole Allergy Unknown Itching Verified 12/31/22 10:34 [From Bactrim] trimethoprim [From Bactrim] Allergy Unknown Itching Verified 12/31/22 10:34 lorazepam [From Ativan] AdvReac Agitated Verified 12/31/22 10:34 Review of Systems 2 Review of Systems: Constitutional:No Fever, No Chills, No Fatigue, No Malaise ENT/Mouth: No Ear Pain, No sore throat, No Rhinorrhea, No Swallowing Difficulty Eyes: No Eye Pain, No Swelling, No Redness Cardiovascular: No Chest Pain, No SOB Respiratory: No Cough, No Sputum, No Dyspnea Gastrointestinal: No Nausea, No Vomiting, No Diarrhea, No Constipation, No Abdominal pain Musculoskeletal: No joint pain, No Myalgias, No Joint Swelling Skin: No Skin Lesions, No rash Neuro: No Weakness, No Dizziness, No Headache Psych: +kentrell, No Anxiety/Panic, No Depression, No SI/HI/AH/VH, + Social Issues Yes all other systems are reviewed and are negative Constitutional: Constitutional: Reports as per HPI [facility] Past Medical History Attestation statement: The following information was validated with the patient. Source: old records reviewed Medical History Bipolar 1 disorder Cannabis abuse ADHD Anxiety Social History Social History Household Members: Family Housing: House Do you presently have visiting nurse or other home services: No Patient Tobacco Use Status: Never used Tobacco Tobacco use type: Cigar e-Cigarette/Vaping Use: Never Used Second Hand Smoke Exposure: No Substance Use Type: Marijuana Advance Directives: No Healthcare Proxy: No Guardian: No service: No Sexual orientation: Did not discuss. Physical Exam 2 Vital Signs: Vital Signs: Last Vital Signs Temp 98 F 02/14/23 10:11 Pulse 80 02/14/23 10:11 Resp 16 02/14/23 10:11 BP 140/71 H 02/14/23 10:11 Pulse Ox 100 02/14/23 10:11 O2 Del Method Room Air 02/14/23 10:11 BMI result Body Mass Index 23.4 Const: General: cooperative, healthy appearing and no acute distress O rientation/consciousness: patient oriented x3 Limitations: no limitations HEENT: Head: Yes normal to inspection and Yes atraumatic Ears: hearing grossly normal bilaterally General nose exam: Normal external nose present Face and sinus: Yes normal facial exam Eyes: General: appearance normal, both eyes and all related structures EOM: EOMs intact bilaterally Neck: Neck: Yes normal visual inspection and Yes no meningeal signs Resp: Effort & Inspection: normal respiratory effort and no respiratory distress Auscultation: clear to auscultation bilaterally Cardio: Rate: regular rate Heart sounds: S1 normal heart sound present and S2 normal heart sound present GI: Inspection: Yes normal to inspection Palpation (GI): Soft to palpation, nontender, no guarding and not rigid Skin: Rashes: no rashes Wounds: no wounds Neuro: General: patient oriented x3, tone normal and no meningeal signs C ranial nerves: Yes CN's II-XII intact bilaterally Gait exam (Neuro): Normal gait present Extrem: General: Yes normal to inspection Psych: Appearance: well kempt Attitude: cooperative Thought content: s uicidality and no homicidality Insight: Limited insight present (Psych) J udgement: Limited judgement present (Psych) Course Course Course Narrative: - labs reassuring. Tox screen negative. - Patient was evaluated by CARE team and will be an inpatient bed search. Physician observation initiated -1629--ED care tranfserred to RAÚL Silva pending Inpatient BS Medical Decision Making Medical Decision Making MDM Narrative: 27-year-old male with a past medical history of bipolar, substance abuse, ADHD, anxiety, schizoaffective disorder presenting to the ED via EMS with manic behavior at home and medication noncompliance. On exam vital signs stable, NAD, nontoxic appearing, cooperative, denies SI/HI. Concern for schizoaffective disorder/bipolar with kentrell and substance abuse. Rule out organic causes Plan: Labs, CRUM, CARE team consult Please refer to course for remaining clinical decision making, interpretation of labs/imaging results, and discussions with consultants and/or family members. Differential Diagnosis Differential Diagnoses: The differential diagnosis associated with the presentation includes As above Admission/Observation Consideration of admission/observation: Escalation of care including admission/observation considered Consult Healthcare Provider Management of the patient was discussed with: Behavioral Health Provider Lab Data [facility] Lab Attestation statement: I reviewed the patient's lab results. 02/14/23 12:30 02/14/23 12:30 Labs: Lab Results 02/14/23 02/14/23 02/14/23 Range/Units 12:30 13:32 14:34 WBC 6.5 (4.8-10.8) X10*3/uL RBC 4.75 (4.60-5.80) X10*6/uL Hgb 14.7 (14.0-18.0) g/dl Hct 42.5 (42.0-52.0) % MCV 89.5 (80.0-98.0) fL MCH 30.9 (27.0-33.0) pg MCHC 34.6 (31.0-36.0) g/dl RDW 11.7 (11.0-16.0) % Plt Count 243 (160-400) X10*3/uL MPV 11.2 (9.4-12.4) fL Immature Gran % (Auto) 0.3 (0.0-0.4) % Neut % (Auto) 70.5 (45-73) % Lymph % (Auto) 24.0 (20-40) % [place] % (Auto) 4.5 (2-11) % Eos % (Auto) 0.2 (0-4) % Baso % (Auto) 0.5 (0-2) % Lymph # (Auto) 1.6 (1.2-4.9) X10*3/uL [place] # (Auto) 0.3 (0.1-1.2) X10*3/uL Eos # (Auto) 0.0 (0.0-0.4) X10*3/uL Baso # (Auto) 0.0 (0.0-0.2) X10*3/uL Abs Immat Gran (auto) 0.02 (0.00-0.03) X10*3/uL Absolute Neuts (auto) 4.6 (2.0-8.3) x10*3/uL Absolute Nucleated RBC 0.000 (0.0-0.012) X10*3/uL Nucleated RBC % (auto) 0.0 (0.0-0.2) /100WBC Sodium 142 (135-145) mmol/L Potassium 4.0 (3.3-5.1) mmol/L Chloride 105 (96-108) mmol/L Carbon Dioxide 26 (22-29) mmol/L Anion Gap 15 (12-20) BUN 8 L (9-16) mg/dL Creatinine 0.89 (0.5-1.4) mg/dL Estim Creat Clear Calc 114.4 Estimated GFR > 60 Random Glucose 120 H (60-115) mg/dL Calcium 9.9 (8.4-10.2) mg/dL Total Bilirubin 1.6 H (0.0-1.0) mg/dL Direct Bilirubin 0.4 (0.0-0.5) mg/dL AST 19 (5-37) U/L ALT 24 (0-40) U/L Alkaline Phosphatase 55 (39-117) U/L Total Protein 8.0 (6.5-8.0) g/dL Albumin 5.1 H (3.5-5.0) g/dL Urine Color Yellow Urine Appearance Clear Urine pH 7.0 (5.0-9.0) Ur Specific [place] <= 1.005 (1.005-1.025) Urine Protein Negative (Neg-Trace) mg/dL Urine Glucose (UA) Negative (Negative) mg/dL Urine Ketones Negative (Negative) mg/dL Urine Blood Negative (Negative) Urine Nitrite Negative (Negative) Ur Leukocyte Esterase Negative (Negative) Urine RBC 0-2 (0-2) /HPF Urine WBC 0-5 (0-5) /HPF Ur Squamous Epith Cells 0-2 (0-2) /HPF Urine Bacteria None Seen (None Seen) Hyaline Casts 0-2 (0-2) /LPF Salicylates < 5.0 L (15-30) mg/dL Urine Opiates Screen Not Detected (Not Detect) Urine Fentanyl Screen Not Detected (Not Detect) Acetaminophen < 17 (<30) mcg/mL Ur Barbiturates Screen Not Detected (Not Detect) Ur Phencyclidine Scrn Not Detected (Not Detect) Ur Amphetamines Screen Not Detected (Not Detect) U Benzodiazepines Scrn Not Detected (Not Detect) Urine Cocaine Screen Not Detected (Not Detect) U Marijuana (THC) Screen Not Detected (Not Detect) Ethyl Alcohol < 10 mg/dL COVID-19 ([facility]) Negative (Negative) COVID-19 Clin Com See Note Independent Historian Clinical information obtained from an independent historian. History obtained from or confirmed by: EMS External Record Review External record reviewed: Inpatient record, Office record, Outpatient record, Prior outpatient labs, Prior outpatient radiology, Primary care record and Outside ED record Tests considered The following testing was considered but not selected: As above Chronic Conditions Patient?s care impacted by: Other Discharge Plan Discharge Clinical Impression: Schizoaffective disorder, bipolar type Patient Disposition: Still a Patient Prescriptions: No Action risperidone 2 mg Tablet 2 mg PO BEDTIME Qty: 30 0RF risperidone 1 mg Tablet 1 mg PO DAILY Qty: 30 0RF Interventions: Mccreary-Suicide Risk Severity Scale Last Done: 02/14/23 11:04
[2023-02-14 10:11] VITALS: BP 140/71; PULSE 78; PULSE 80; RESP 16; TEMP 36.6; O2SAT 100; BMI 23.4
[2023-02-14 12:34] LABS: MANUAL DIFF FLAG NO
[2023-02-14 12:36] LABS: Basophils Percent Auto 0.5 % (0-2); Eosinophils Percent Auto 0.2 % (0-4); Hematocrit 42.5 % (42.0-52.0); Hemoglobin 14.7 g/dl (14.0-18.0); Imm Gran Abs Auto 0.02 X10*3/uL (0.00-0.03); Imm Gran Pct Auto 0.3 % (0.0-0.4); Lymphocytes Absolute Auto 1.6 X10*3/uL (1.2-4.9); Mean Corpuscular HGB Conc 34.6 g/dl (31.0-36.0); Mean Corpuscular Hemoglobin 30.9 pg (27.0-33.0); Mean Corpuscular Volume 89.5 fL (80.0-98.0); Mean Platelet Volume 11.2 fL (9.4-12.4); Monocytes Absolute Auto 0.3 X10*3/uL (0.1-1.2); Monocytes Percent Auto 4.5 % (2-11); Neutrophils Absolute Auto 4.6 x10*3/uL (2.0-8.3); Neutrophils Percent Auto 70.5 % (45-73); Platelet Count 243 X10*3/uL (160-400); Red Blood Count 4.75 X10*6/uL (4.60-5.80); Red Cell Distribution Width 11.7 % (11.0-16.0); White Blood Count 6.5 X10*3/uL (4.8-10.8)
[2023-02-14 12:55] LABS: Acetaminophen LAB < 17 mcg/mL (<30); Salicylate < 5.0 mg/dL (15-30)
[2023-02-14 12:56] LABS: Alanine Aminotransferase 24 U/L (0-40); Albumin Level 5.1 g/dL (3.5-5.0); Alkaline Phosphatase 55 U/L (39-117); Anion Gap 15 (12-20); Aspartate Amino Transferase 19 U/L (5-37); Bilirubin Direct 0.4 mg/dL (0.0-0.5); Bilirubin Total 1.6 mg/dL (0.0-1.0); Blood Urea Nitrogen 8 mg/dL (9-16); Calcium 9.9 mg/dL (8.4-10.2); Carbon Dioxide 26 mmol/L (22-29); Chloride 105 mmol/L (96-108); Creatinine Clr Calc Pharmacy 114.4; Estimated Glomerular Filt Rate > 60; Ethanol < 10 mg/dL; Glucose Random 120 mg/dL (60-115); Sodium 142 mmol/L (135-145)
--- NOTE | 2023-02-14 13:44 | PC.NURSE ---
client asked to move to reassigned room, patient seems resistant to following directions, unclear why at this time.
[2023-02-14 13:46] LABS: Appearance Urine Clear; Color Urine Yellow; Glucose Urine UA Negative (Negative); Leukocyte Esterase Urine Negative (Negative); Nitrite Urine Negative (Negative); Specific Gravity - Urine <= 1.005 (1.005-1.025); Urine Blood Negative (Negative); Urine Ketones Negative (Negative); Urine Protein Negative (Neg-Trace)
[2023-02-14 13:48] LABS: Amphetamine Screen Urine Not Detected (Not Detect); Barbiturates, Urine Not Detected (Not Detect); Benzodiazepines Screen Urine Not Detected (Not Detect); Cannabinoid Screen Urine Not Detected (Not Detect); Cocaine Screen Urine Not Detected (Not Detect); Fentanyl, urine Not Detected (Not Detect); Opiate Screen Urine Not Detected (Not Detect); Phencyclidine Screen Urine Not Detected (Not Detect)
--- NOTE | 2023-02-14 13:51 | PC.NURSE ---
patient adjourned of own accord to new room
[2023-02-14 13:52] LABS: Bacteria Urine None Seen (None Seen); Hyaline Casts Urine 0-2 /LPF (0-2); RBC Urine 0-2 /HPF (0-2); Squamous Epithelial Cell Urine 0-2 /HPF (0-2); WBC Urine 0-5 /HPF (0-5)
[2023-02-14 15:02] LABS: COVID-19 Test Negative (Negative); IDNOW Serial# 9DB6401D
[2023-02-14 16:35] VITALS: BP 124/69; PULSE 54; TEMP 36.2; O2SAT 98
--- NOTE | 2023-02-14 17:27 | PC.ADMIT ---
Van is a 27-year-old male admitted from [facility] on a CV (pt immediately signed a 3 day upon arrival) for treatment of schizoaffective disorder, bipolar type. Tox screen negative. Skin check complete. Per crisis eval, pt's mother called EMS due to pt exhibiting manic/bizarre and disorganized behavior and being noncompliant with medication. Pt was recently discharged from on 01/05/23 with plan to follow up with a psychiatrist at [facility] but pt reports he doesn't have any providers at this time. During admission assessment, pt was alert, oriented and cooperative. Pt endorsed AH/VH but did not elaborate. Pt answered questions but appeared internally preoccupied and would laugh to himself at times. Pt reports being triggered by his parents when they try to tell me I have a mental illness. Pt states Wellbutrin and Haldol have been effective in the past and he hopes to take it while he's here. Pt denies SI/HI but will reach out to staff if thoughts occur, pt placed on 15 minute safety checks.
--- NOTE | 2023-02-14 17:58 | PC.NURSE ---
Pt requested flu vaccine but he recently received vaccine 12/31/22.
[2023-02-14 18:01] VITALS: BMI 29.3
[2023-02-14] MEDS: Benztropine Mesylate 1 MG TABLET PO (21:23)
[2023-02-14] MEDS: HaloperidoL 5 MG TABLET PO (21:23)
[2023-02-15 07:25] VITALS: BP 111/56; PULSE 62; TEMP 37.3; O2SAT 98
--- NOTE | 2023-02-15 09:59 | P.HPPS_ITS ---
HPI Date of Service: 02/15/23 Chief Complaint: Maryjane Sources of Information: patient interviewed, chart reviewed and crisis/core team assessment reviewed HPI Subjective Notes: [place] Warning, Conditional Voluntary and 3 Day Narrative: Patient is a 27 year old male with hx of Schizoaffective d/o, ADHD; was recently discharged from on 01/05/23; who presented to [facility] via EMS d/t his mother reporting pt was presenting with manic behavior and medication noncompliance. During admission assessment, pt presents calm and cooperative. pt stated, I came here because I'm on risperidone and my parents keep giving it to me but I need an upper like Adderall to do good in school. My prescription is not working for me. I want to go back to school . Pt reports he has been medication compliant since being discharged from the hospital. Pt stated, I'm not psychotic at all. I'm not taking risperidone anymore. It makes me feel like I'm not a normal kid . Pt reports feeling better after taking the Haldol yesterday and would be open to taking that twice a day . denies SI,HI,VH. He reports auditory hallucinations of people that are still alive; it's not scaring . Pt denies any substance use; UTOX negative. He reports sleeping 2-4 hours a night. Past Psychiatric History: Patient's mother reports that in 2016 following cocaine use, patient accidentally overdosed on melatonin taking about 500 mg since he could not sleep. He was having pressured speech, weird behavior and so she took him to [facility] where he was started on Risperdal to good effect. He was discharged and almost immediately stopped taking his medications and started smoking cannabis again daily. In 2018, patient had his 2nd psychiatric hospitalization where he was floridly manic, caring garbage and recycling from the garage to his room, not sleeping, not eating, grandiose themes saying he was going to run for mayor and live on only water, not making sense and rambling. He was again brought to [facility], again started on Risperdal and 2 weeks later discharged. Patient fell into the same pattern of going off medication and smoking cannabis when he was again manic admitted to [facility] in the fall of 2019. Same pattern again until this admission. Mother reports patient had trial of Wellbutrin during which time he did very well and was productive Mother reports patient has history of severe anxiety starting in childhood as well as ADHD. Medical Evaluation Reviewed: Yes [facility] Medical History Bipolar 1 disorder Cannabis abuse ADHD Anxiety Family History: Patient's maternal 1st cousin has diagnosed bipolar disorder Maternal side of family has numerous substance abuse issues Social History: Patient lives at home with his supportive mother and father and 2 younger siblings; graduated high school in 2016; played basketball and soccer; some college however has bounced from college to college due to anxiety, ADHD and likely subacute bipolar prodrome. Substance History: denies, UTOX negative. Trauma History: None mentioned- denies hx of violence, says he was brought back to life at [facility]2 years ago when he holding his breath- Diagnostics Vital Signs (24Hr): Vital Signs - 24 hr 02/14/23 10:11 02/14/23 16:35 02/15/23 07:25 Temperature 98 F 97.2 F 99.1 F Pulse Rate 80 54 62 Respiratory Rate 16 Blood Pressure 140/71 H 124/69 111/56 L Pulse Oximetry 100 98 98 Oxygen Delivery Method Room Air Room Air Room Air BMI result Body Mass Index 29.3 Labs 02/14/23 12:30 02/14/23 12:30 Labs: Laboratory Results - last 48 hr 02/14/23 02/14/23 02/14/23 12:30 13:32 14:34 WBC 6.5 RBC 4.75 Hgb 14.7 Hct 42.5 MCV 89.5 MCH 30.9 MCHC 34.6 RDW 11.7 Plt Count 243 MPV 11.2 Immature Gran % (Auto) 0.3 Neut % (Auto) 70.5 Lymph % (Auto) 24.0 [place] % (Auto) 4.5 Eos % (Auto) 0.2 Baso % (Auto) 0.5 Lymph # (Auto) 1.6 [place] # (Auto) 0.3 Eos # (Auto) 0.0 Baso # (Auto) 0.0 Abs Immat Gran (auto) 0.02 Absolute Neuts (auto) 4.6 Absolute Nucleated RBC 0.000 Nucleated RBC % (auto) 0.0 Sodium 142 Potassium 4.0 Chloride 105 Carbon Dioxide 26 Anion Gap 15 BUN 8 L Creatinine 0.89 Estim Creat Clear Calc 114.4 Estimated GFR > 60 Random Glucose 120 H Calcium 9.9 Total Bilirubin 1.6 H Direct Bilirubin 0.4 AST 19 ALT 24 Alkaline Phosphatase 55 Total Protein 8.0 Albumin 5.1 H Urine Color Yellow Urine Appearance Clear Urine pH 7.0 Ur Specific [place] <= 1.005 Urine Protein Negative Urine Glucose (UA) Negative Urine Ketones Negative Urine Blood Negative Urine Nitrite Negative Ur Leukocyte Esterase Negative Urine RBC 0-2 Urine WBC 0-5 Ur Squamous Epith Cells 0-2 Urine Bacteria None Seen Hyaline Casts 0-2 Salicylates < 5.0 L Urine Opiates Screen Not Detected Urine Fentanyl Screen Not Detected Acetaminophen < 17 Ur Barbiturates Screen Not Detected Ur Phencyclidine Scrn Not Detected Ur Amphetamines Screen Not Detected U Benzodiazepines Scrn Not Detected Urine Cocaine Screen Not Detected U Marijuana (THC) Screen Not Detected Ethyl Alcohol < 10 COVID-19 ([facility]) Negative COVID-19 Clin Com See Note Meds/Allergies Allergies Allergies Allergy/AdvReac Type Severity Reaction Status Date / Time strawberry Allergy Mild Itching Verified 12/31/22 10:34 cefazolin Allergy Unknown Itching Verified 12/31/22 10:34 sulfamethoxazole Allergy Unknown Itching Verified 12/31/22 10:34 [From Bactrim] trimethoprim [From Bactrim] Allergy Unknown Itching Verified 12/31/22 10:34 lorazepam [From Ativan] AdvReac Agitated Verified 12/31/22 10:34 Mental Status Exam Mental Status Exam Narrative: Pt is alert and oriented; behavior is cooperative, friendly and calm; dressed in casual attire; mood is described as good ; eye contact appropriate; Speech is normal rate, volume and prosody and not pressured; no psychomotor agitation/retardation present; thought process is organized and goal directed; Thought content is on tx; denies SI/HI/VH. Reports auditory hallucinations that are not bothersome. Patients insight and judgment are poor. Assessment & Plan Assessment & Plan (1) Schizoaffective disorder, bipolar type: Status: Acute Code(s): F25.0 - Schizoaffective disorder, bipolar type (2) ADHD: Status: Chronic Code(s): F90.9 - Attention-deficit hyperactivity disorder, unspecified type Plan Patient is a 27 year old male with hx of Schizoaffective d/o; was recently discharged from on 01/05/23; who presented [place] [facility] [place] d/t his mother reporting pt was presenting with manic behavior and medication noncompliance. Plan: 3 day Start: Haldol 5mg PO bid Cogentin 1mg PO bedtime Lamictal 25mg PO bedtime Obtain collateral Patient educated on: diagnosis, medication risk/benefits and therapeutic strategies Informed Consent: understands and further education needed Reason for continued inpatient stay Substantial Risk for: med/psych decompensation Statement Statement: I have reviewed the history and physical and performed a pertinent examination on my patient. No changes have occurred unless specified. If the History and Physical was not performed prior to admission, the Hospitalist's service will be consulted for completing the admission physical. Time Spent With Patient Time: Total time managing care of this patient today _60___ minutes.
--- NOTE | 2023-02-15 12:01 | MHC.CLN ---
CONSULT HT 66 WT 145# IBW 142#+/-10% BMI 29-OBESE WT HX FOLLOWS: 82.2KG (02/14/23) 65.8KG (02/14/23) 81.7KG (12/31/22) 73.5KG (12/31/22) 75KG (12/31/22) MULTIPLE SAME DAY WT DISCREPANCIES ALL ABOVE IBW RANGE OR EQUAL REVIEWED LABS REGULAR DIET PT DOES NOT ENDORSE WT LOSS RECOMMEND DAILY WEIGHTS TO ESTABLISH BASELINE WT AND WT HX MONITOR PO INTAKE CLOSELY
[2023-02-15] MEDS: HaloperidoL 5 MG TABLET PO ×2 (14:16→22:05)
[2023-02-15 20:15] VITALS: BP 117/73; PULSE 65; RESP 17; TEMP 36.6; O2SAT 99
[2023-02-15] MEDS: Benztropine Mesylate 1 MG TABLET PO (22:03)
[2023-02-15] MEDS: lamoTRIgine 25 MG TABLET PO (22:03)
[2023-02-16 06:00] VITALS: BP 103/59; PULSE 63; TEMP 36.5; O2SAT 97
[2023-02-16] MEDS: HaloperidoL 5 MG TABLET PO ×2 (08:54→20:56)
--- NOTE | 2023-02-16 09:37 | P.PNPSI_ITS ---
Subjective Subjective Date of Service: 02/16/23 Reason For Visit: Maryjane Subjective Notes: 3 Day Interim History: Reviewed with . Patient presents calm, cooperative and friendly. 3 day due Tuesday. Patient reports feeling good overall ; pt reports he slept well last night. He continues to report auditory hallucinations but states they are minimal; pt stated, the voices are cool to me. I can hear repeats of movies or music . Denies SI/HI/VH. denies any side effects from medications. Observed attending groups; keeping to self. T/W spoke to patients mother, Patsy. Patsy expressed her concern regarding patient's medication compliance and his behavior at home. She plans on coming in tomorrow for a family meeting to discuss the importance of taking medications with Van present. Medication Compliance: Yes Side effects from medications: No Attending Groups: Intermittent Review of Systems Constitutional: Reports as per HPI Eyes: Reports as per HPI Reports as per HPI Cardiovascular: Reports as per HPI Respiratory: Reports as per HPI Gastrointestinal: Reports as per HPI Genitourinary: Reports as per HPI Musculoskeletal: Reports as per HPI Skin/Breast: Reports as per HPI Reports as per HPI Psychiatric: Reports as per HPI Endocrine: Reports as per HPI Hematologic/Lymphatic: Reports as per HPI Allergic/Immunologic: Reports as per HPI Mental Status Exam Mental Status Exam Narrative: Pt is alert and oriented; behavior is cooperative, friendly and calm; dressed in casual attire; mood is described as good ; eye contact appropriate; Speech is normal rate, volume and prosody and not pressured; no psychomotor agitation/retardation present; thought process is organized and goal directed; Thought content is on tx; denies SI/HI/VH. Reports auditory hallucinations that are not bothersome. Patients insight and judgment are poor but improving. Diagnostics Vital Signs (24Hr): Vital Signs - 24 hr 02/15/23 20:15 02/16/23 06:00 Temperature 97.8 F 97.7 F Pulse Rate 65 63 Respiratory Rate 17 Blood Pressure 117/73 103/59 L Pulse Oximetry 99 97 Oxygen Delivery Method Room Air Room Air BMI result Body Mass Index 29.3 Labs 02/14/23 12:30 02/14/23 12:30 Labs: Laboratory Results - last 48 hr 02/14/23 02/14/23 02/14/23 12:30 13:32 14:34 WBC 6.5 RBC 4.75 Hgb 14.7 Hct 42.5 MCV 89.5 MCH 30.9 MCHC 34.6 RDW 11.7 Plt Count 243 MPV 11.2 Immature Gran % (Auto) 0.3 Neut % (Auto) 70.5 Lymph % (Auto) 24.0 [place] % (Auto) 4.5 Eos % (Auto) 0.2 Baso % (Auto) 0.5 Lymph # (Auto) 1.6 [place] # (Auto) 0.3 Eos # (Auto) 0.0 Baso # (Auto) 0.0 Abs Immat Gran (auto) 0.02 Absolute Neuts (auto) 4.6 Absolute Nucleated RBC 0.000 Nucleated RBC % (auto) 0.0 Sodium 142 Potassium 4.0 Chloride 105 Carbon Dioxide 26 Anion Gap 15 BUN 8 L Creatinine 0.89 Estim Creat Clear Calc 114.4 Estimated GFR > 60 Random Glucose 120 H Calcium 9.9 Total Bilirubin 1.6 H Direct Bilirubin 0.4 AST 19 ALT 24 Alkaline Phosphatase 55 Total Protein 8.0 Albumin 5.1 H Urine Color Yellow Urine Appearance Clear Urine pH 7.0 Ur Specific [place] <= 1.005 Urine Protein Negative Urine Glucose (UA) Negative Urine Ketones Negative Urine Blood Negative Urine Nitrite Negative Ur Leukocyte Esterase Negative Urine RBC 0-2 Urine WBC 0-5 Ur Squamous Epith Cells 0-2 Urine Bacteria None Seen Hyaline Casts 0-2 Salicylates < 5.0 L Urine Opiates Screen Not Detected Urine Fentanyl Screen Not Detected Acetaminophen < 17 Ur Barbiturates Screen Not Detected Ur Phencyclidine Scrn Not Detected Ur Amphetamines Screen Not Detected U Benzodiazepines Scrn Not Detected Urine Cocaine Screen Not Detected U Marijuana (THC) Screen Not Detected Ethyl Alcohol < 10 COVID-19 ([facility]) Negative COVID-19 Clin Com See Note Medications Medications Current Medications Acetaminophen (Acetaminophen 325 Mg Tablet) 650 mg PO Q6H PRN PRN Reason: Headache/Pain Mild Scale (1-3) Al Hydroxide/Mg Hydroxide (Magnesium Hydrox/Alum Hydrox 30 Ml Oral.Susp) 30 ml PO Q6H PRN PRN Reason: Heartburn/Nausea Benztropine Mesylate (Benztropine Mesylate 1 Mg Tablet) 1 mg PO BEDTIME JESSICA Last Admin: 02/15/23 22:03 Dose: 1 mg Haloperidol (Haloperidol 5 Mg Tablet) 5 mg PO BID JESSICA Last Admin: 02/16/23 08:54 Dose: 5 mg Hydroxyzine HCl (Hydroxyzine Hcl 25 Mg Tablet) 25 mg PO Q6H PRN PRN Reason: Anxiety Lamotrigine (Lamotrigine 25 Mg Tablet) 25 mg PO BEDTIME JESSICA Last Admin: 02/15/23 22:03 Dose: 25 mg Magnesium Hydroxide (Milk Of Magnesia 30 Ml Oral.Susp) 30 ml PO DAILY PRN PRN Reason: Constipation Nicotine Polacrilex (Nicotine Polacrilex 2 Mg Gum) 4 mg BUCCAL Q2H PRN PRN Reason: Nicotine Cravings Trazodone HCl (Trazodone Hcl 50 Mg Tablet) 50 mg PO BEDTIME MRX1 PRN PRN Reason: Insomnia Allergies Allergies Allergy/AdvReac Type Severity Reaction Status Date / Time strawberry Allergy Mild Itching Verified 12/31/22 10:34 cefazolin Allergy Unknown Itching Verified 12/31/22 10:34 sulfamethoxazole Allergy Unknown Itching Verified 12/31/22 10:34 [From Bactrim] trimethoprim [From Bactrim] Allergy Unknown Itching Verified 12/31/22 10:34 lorazepam [From Ativan] AdvReac Agitated Verified 12/31/22 10:34 Assessment & Plan Assessment & Plan (1) Schizoaffective disorder, bipolar type: Status: Acute Code(s): F25.0 - Schizoaffective disorder, bipolar type (2) ADHD: Status: Chronic Code(s): F90.9 - Attention-deficit hyperactivity disorder, unspecified type Plan Patient is a 27 year old male with hx of Schizoaffective d/o; was recently discharged from on 01/05/23; who presented to [facility] [place] [place] [facility] via EMS d/t his mother reporting pt was presenting with manic behavior and medication noncompliance. Plan: 3 day Start: Haldol 5mg PO bid Cogentin 1mg PO bedtime Lamictal 25mg PO bedtime Obtain collateral 02/16: Patient presents calm, cooperative and friendly. 3 day due Tuesday. Patient reports feeling good overall ; pt reports he slept well last night. He continues to report auditory hallucinations but states they are minimal; pt stated, the voices are cool to me. I can hear repeats of movies or music . Denies SI/HI/VH. denies any side effects from medications. Observed attending groups; keeping to self. T/W spoke to patients mother, Patsy. Patsy expressed her concern regarding patient's medication compliance and his behavior at home. She plans on coming in tomorrow for a family meeting to discuss the importance of taking medications with Van present. Patient educated on: diagnosis, medication risk/benefits and therapeutic strategies Guardian/Caregiver educated on: diagnosis, medication risk/benefits and therapeutic strategies Informed Consent: understands Reason for continued inpatient stay Substantial Risk for: med/psych decompensation Time Spent With Patient Time: Total time managing care of this patient today _30___ minutes.
[2023-02-16] MEDS: hydrOXYzine HCL 25 MG TABLET PO ×2 (12:55→17:47)
[2023-02-16 20:40] VITALS: BP 114/70; PULSE 80; TEMP 36.9; O2SAT 96
[2023-02-16] MEDS: Benztropine Mesylate 1 MG TABLET PO (20:56)
[2023-02-16] MEDS: traZODone HCL 50 MG TABLET PO (20:56)
[2023-02-16] MEDS: lamoTRIgine 25 MG TABLET PO (20:56)
--- NOTE | 2023-02-17 02:21 | PC.NURSE ---
Van has been redirected multiple times throughout the evening and thus far on the overnight shift to not sleep in the sensory room or bringing his possessions into the sensory room. The patient refused to leave the sensory room and was given a copy of his behavior plan indicating that he would only sleep in his assigned room. Van handed the treatment plan back to this song writer stating I'm not following that. I didn't agree to that. they let me sleep in here on the first night you weren't here you don't know. patient did leave the sensory room but then threw his blankets on the floor and told me to pick them up as I was kerri [his] maid . patient instructed to speak with the doctor in the morning regarding his behavioral plan.
[2023-02-17] MEDS: hydrOXYzine HCL 25 MG TABLET PO ×3 (07:15→20:07)
[2023-02-17 08:01] VITALS: BP 115/56; PULSE 59; RESP 16; TEMP 36.3; O2SAT 98
[2023-02-17 08:15] VITALS: BMI 29.7
[2023-02-17] MEDS: HaloperidoL 5 MG TABLET PO (08:28)
--- NOTE | 2023-02-17 09:25 | P.PNPSI_ITS ---
Subjective Subjective Date of Service: 02/17/23 Reason For Visit: Maryjane Subjective Notes: 3 Day Interim History: Reviewed with . Patient reports feeling good ; pt reports he slept well. He continues to report auditory hallucinations but states they are minimal and not bothersome. Denies SI/HI/VH. Pt stated, I'm a peaceful heather . denies any side effects from medications. He reports he is looking forward to returning home and plans on following up with outpatient providers. T/W had family meeting today with Van, Van's mother and father present. Van's medication regimen was reviewed; pt parents reported Van having a hx of taking risperdal in the past and it being beneficial. pt agreed to start taking risperdal rather than haldol. Pt stated he would be interested in obtaining an ANDRE with his outpatient psychiatrist. When mother brought up past behavior and concerns; pt would become irritable and frustrated, pt stated, why are you trying to make me look bad? You're living in the past . T/W suggested possibly obtaining a visiting RN for mediation compliance, benefits of ANDRE, applying for [facility] services. Medication Compliance: Yes Side effects from medications: No Attending Groups: No Review of Systems Constitutional: Reports as per HPI Eyes: Reports as per HPI Reports as per HPI Cardiovascular: Reports as per HPI Respiratory: Reports as per HPI Gastrointestinal: Reports as per HPI Genitourinary: Reports as per HPI Musculoskeletal: Reports as per HPI Skin/Breast: Reports as per HPI Reports as per HPI Psychiatric: Reports as per HPI Endocrine: Reports as per HPI Hematologic/Lymphatic: Reports as per HPI Allergic/Immunologic: Reports as per HPI Mental Status Exam Mental Status Exam Narrative: Pt is alert and oriented; behavior is cooperative, friendly and calm; dressed in casual attire; mood is described as good ; eye contact appropriate; Speech is normal rate, volume and prosody and not pressured; no psychomotor agitation/retardation present; thought process is organized and goal directed; Thought content is on tx; denies SI/HI/VH. Reports auditory hallucinations that are not bothersome. Diagnostics Vital Signs (24Hr): Vital Signs - 24 hr 02/16/23 20:40 02/17/23 08:01 Temperature 98.4 F 97.3 F Pulse Rate 80 59 Respiratory Rate 16 Blood Pressure 114/70 115/56 L Pulse Oximetry 96 98 Oxygen Delivery Method Room Air Room Air BMI result Body Mass Index 29.7 Labs 02/14/23 12:30 02/14/23 12:30 Medications Medications Current Medications Acetaminophen (Acetaminophen 325 Mg Tablet) 650 mg PO Q6H PRN PRN Reason: Headache/Pain Mild Scale (1-3) Al Hydroxide/Mg Hydroxide (Magnesium Hydrox/Alum Hydrox 30 Ml Oral.Susp) 30 ml PO Q6H PRN PRN Reason: Heartburn/Nausea Benztropine Mesylate (Benztropine Mesylate 1 Mg Tablet) 1 mg PO BEDTIME JESSICA Last Admin: 02/16/23 20:56 Dose: 1 mg Haloperidol (Haloperidol 5 Mg Tablet) 5 mg PO BID JESSICA Last Admin: 02/17/23 08:28 Dose: 5 mg Hydroxyzine HCl (Hydroxyzine Hcl 25 Mg Tablet) 25 mg PO Q4H PRN PRN Reason: Anxiety Last Admin: 02/17/23 07:15 Dose: 25 mg Lamotrigine (Lamotrigine 25 Mg Tablet) 25 mg PO BEDTIME JESSICA Last Admin: 02/16/23 20:56 Dose: 25 mg Magnesium Hydroxide (Milk Of Magnesia 30 Ml Oral.Susp) 30 ml PO DAILY PRN PRN Reason: Constipation Nicotine Polacrilex (Nicotine Polacrilex 2 Mg Gum) 4 mg BUCCAL Q2H PRN PRN Reason: Nicotine Cravings Trazodone HCl (Trazodone Hcl 50 Mg Tablet) 50 mg PO BEDTIME MRX1 PRN PRN Reason: Insomnia Last Admin: 02/16/23 20:56 Dose: 50 mg Allergies Allergies Allergy/AdvReac Type Severity Reaction Status Date / Time strawberry Allergy Mild Itching Verified 12/31/22 10:34 cefazolin Allergy Unknown Itching Verified 12/31/22 10:34 sulfamethoxazole Allergy Unknown Itching Verified 12/31/22 10:34 [From Bactrim] trimethoprim [From Bactrim] Allergy Unknown Itching Verified 12/31/22 10:34 lorazepam [From Ativan] AdvReac Agitated Verified 12/31/22 10:34 Assessment & Plan Assessment & Plan (1) Schizoaffective disorder, bipolar type: Status: Acute Code(s): F25.0 - Schizoaffective disorder, bipolar type (2) ADHD: Status: Chronic Code(s): F90.9 - Attention-deficit hyperactivity disorder, unspecified type Plan Patient is a 27 year old male with hx of Schizoaffective d/o; was recently discharged from on 01/05/23; who presented to [facility] [place] [facility] via EMS d/t his mother reporting pt was presenting with manic behavior and medication noncompliance. Plan: 3 day Start: Haldol 5mg PO bid Cogentin 1mg PO bedtime Lamictal 25mg PO bedtime Obtain collateral 02/16: Patient presents calm, cooperative and friendly. 3 day due Tuesday. Patient reports feeling good overall ; pt reports he slept well last night. He continues to report auditory hallucinations but states they are minimal; pt stated, the voices are cool to me. I can hear repeats of movies or music . Denies SI/HI/VH. denies any side effects from medications. Observed attending groups; keeping to self. T/W spoke to patients mother, Patsy. Patsy expressed her concern regarding patient's medication compliance and his behavior at home. She plans on coming in tomorrow for a family meeting to discuss the importance of taking medications with Van present. 02/17: Patient reports feeling good ; pt reports he slept well. He continues to report auditory hallucinations but states they are minimal and not bothersome. Denies SI/HI/VH. Pt stated, I'm a peaceful heather . denies any side effects from medications. He reports he is looking forward to returning home and plans on following up with outpatient providers. T/W had family meeting today with Van, Van's mother and father present. Van's medication regimen was reviewed; pt parents reported Van having a hx of taking risperdal in the past and it being beneficial. pt agreed to start taking risperdal rather than haldol. Pt stated he would be interested in obtaining an ANDRE with his outpatient psychiatrist. When mother brought up past behavior and concerns; pt would become irritable and frustrated, pt stated, why are you trying to make me look bad? You're living in the past . T/W suggested possibly obtaining a visiting RN for mediation compliance, benefits of ANDRE, applying for [facility] services. DC Haldol. Start: Risperidal 2mg PO BID. 3 day due tomorrow. Patient educated on: diagnosis, medication risk/benefits and therapeutic strategies Guardian/Caregiver educated on: diagnosis, medication risk/benefits and therapeutic strategies Informed Consent: understands Reason for continued inpatient stay Substantial Risk for: med/psych decompensation Time Spent With Patient Time: Total time managing care of this patient today _60___ minutes.
[2023-02-17 19:47] VITALS: BP 126/66; PULSE 65; RESP 15; TEMP 36.7; O2SAT 97
[2023-02-17] MEDS: Benztropine Mesylate 1 MG TABLET PO (20:06)
[2023-02-17] MEDS: Nicotine Polacrilex 2 MG GUM 4 MG BUCCAL ×2 (20:06→22:03)
[2023-02-17] MEDS: lamoTRIgine 25 MG TABLET PO (20:07)
[2023-02-17] MEDS: risperiDONE 2 MG TABLET PO (20:07)
[2023-02-18 06:00] VITALS: BP 114/66; PULSE 71; TEMP 36.5; O2SAT 99
--- NOTE | 2023-02-18 09:14 | PM.PSYDC ---
DS: Providers Provider Date of Service: 02/18/23 Date of admission: 02/14/23 16:16 Date of discharge: 02/18/23 Primary care physician: Unknown Physician Admitting clinician: Phoebe Richards Attending physician on admission: Jameel Flores Attending physician on discharge: Jameel Flores Discharging clinician: Phoebe Richards DS: Diagnosis Discharge Diagnosis (1) Schizoaffective disorder, bipolar type: Status: Acute (2) ADHD: Status: Chronic DS: Medications Discharge Medications Home Medications: Previous Rx's Medication Instructions Recorded risperidone 1 mg tablet 1 mg PO DAILY #30 tabs 01/05/23 risperidone 2 mg tablet 2 mg PO BEDTIME #30 tabs 01/05/23 Mental Status Exam Mental Status Exam Narrative: Pt is alert and oriented; behavior is cooperative, friendly and calm; dressed in casual attire; mood is described as good ; eye contact appropriate; Speech is normal rate, volume and prosody and not pressured; no psychomotor agitation/retardation present; thought process is organized and goal directed; Thought content is on tx; denies SI/HI/VH. Reports auditory hallucinations that are not bothersome. Data Data Completed and Pending Completed studies during hospitalization [Text1]: 02/14/23 02/14/23 02/14/23 12:30 13:32 14:34 WBC 6.5 RBC 4.75 Hgb 14.7 Hct 42.5 MCV 89.5 MCH 30.9 MCHC 34.6 RDW 11.7 Plt Count 243 MPV 11.2 Immature Gran % (Auto) 0.3 Neut % (Auto) 70.5 Lymph % (Auto) 24.0 [place] % (Auto) 4.5 Eos % (Auto) 0.2 Baso % (Auto) 0.5 Lymph # (Auto) 1.6 [place] # (Auto) 0.3 Eos # (Auto) 0.0 Baso # (Auto) 0.0 Abs Immat Gran (auto) 0.02 Absolute Neuts (auto) 4.6 Absolute Nucleated RBC 0.000 Nucleated RBC % (auto) 0.0 Sodium 142 Potassium 4.0 Chloride 105 Carbon Dioxide 26 Anion Gap 15 BUN 8 L Creatinine 0.89 Estim Creat Clear Calc 114.4 Estimated GFR > 60 Random Glucose 120 H Calcium 9.9 Total Bilirubin 1.6 H Direct Bilirubin 0.4 AST 19 ALT 24 Alkaline Phosphatase 55 Total Protein 8.0 Albumin 5.1 H Urine Color Yellow Urine Appearance Clear Urine pH 7.0 Ur Specific [place] <= 1.005 Urine Protein Negative Urine Glucose (UA) Negative Urine Ketones Negative Urine Blood Negative Urine Nitrite Negative Ur Leukocyte Esterase Negative Urine RBC 0-2 Urine WBC 0-5 Ur Squamous Epith Cells 0-2 Urine Bacteria None Seen Hyaline Casts 0-2 Salicylates < 5.0 L Urine Opiates Screen Not Detected Urine Fentanyl Screen Not Detected Acetaminophen < 17 Ur Barbiturates Screen Not Detected Ur Phencyclidine Scrn Not Detected Ur Amphetamines Screen Not Detected U Benzodiazepines Scrn Not Detected Urine Cocaine Screen Not Detected U Marijuana (THC) Screen Not Detected Ethyl Alcohol < 10 COVID-19 ([facility]) Negative COVID-19 Clin Com See Note DS: Summary Hospital Course Hospital Course: Patient is a 27 year old male with hx of Schizoaffective d/o, ADHD; was recently discharged from on 01/05/23; who presented to [facility] [place] [facility] via EMS d/t his mother reporting pt was presenting with manic behavior and medication noncompliance. During admission assessment, pt presents calm and cooperative. pt stated, I came here because I'm on risperidone and my parents keep giving it to me but I need an upper like Adderall to do good in school. My prescription is not working for me. I want to go back to school . Pt reports he has been medication compliant since being discharged from the hospital. Pt stated, I'm not psychotic at all. I'm not taking risperidone anymore. It makes me feel like I'm not a normal kid . Pt reports feeling better after taking the Haldol yesterday and would be open to taking that twice a day . denies SI,HI,VH. He reports auditory hallucinations of people that are still alive; it's not scaring . Pt denies any substance use; UTOX negative. He reports sleeping 2-4 hours a night. During hospital stay, pt was started on Haldol 5mg PO bid Cogentin 1mg PO bedtime Lamictal 25mg PO bedtime risks/benefits reviewed with pt. pt signed 3 day notice. Patient presents calm, cooperative and friendly. 3 day due Tuesday. Patient reports feeling good overall ; pt reports he slept well last night. He continues to report auditory hallucinations but states they are minimal; pt stated, the voices are cool to me. I can hear repeats of movies or music . Denies SI/HI/VH. denies any side effects from medications. Observed attending groups; keeping to self. T/W spoke to patients mother, Patsy. Patsy expressed her concern regarding patient's medication compliance and his behavior at home. She plans on coming in tomorrow for a family meeting to discuss the importance of taking medications with Van present. Patient reports feeling good ; pt reports he slept well. He continues to report auditory hallucinations but states they are minimal and not bothersome. Denies SI/HI/VH. Pt stated, I'm a peaceful heather . denies any side effects from medications. He reports he is looking forward to returning home and plans on following up with outpatient providers. T/W had family meeting today with Van, Van's mother and father present. Van's medication regimen was reviewed; pt parents reported Van having a hx of taking risperdal in the past and it being beneficial. pt agreed to start taking risperdal rather than haldol. Pt stated he would be interested in obtaining an ANDRE with his outpatient psychiatrist. When mother brought up past behavior and concerns; pt would become irritable and frustrated, pt stated, why are you trying to make me look bad? You're living in the past . T/W suggested possibly obtaining a visiting RN for mediation compliance, benefits of ANDRE, applying for [facility] services. DC Haldol. Start: Risperidal 2mg PO BID. 3 day due tomorrow. Patient discharged home with parents; he reports planning on following up with outpatient providers. denies SI/HI. Time spent discussing smoking cessation with patient: 3 to 10 minutes Status at Discharge Cognitive/behavioral status at discharge: Patient was interviewed prior to discharge and found to be fully oriented and without any SI or HI. Patient has insight and demonstrates good judgment in terms of wanting to pursue treatment. Patient is not in imminent risk of harm to self or others and has a safety plan that includes presenting to the closest ER or calling 911 if feeling unsafe. Patient has been observed closely by nursing and unit staff throughout admission; patient has not engaged in any behaviors that suggest dangerousness to self or others and has demonstrated appropriate behaviors and impulse control. Functional status at discharge: independent ambulation Overall status at discharge: patient is back to baseline Time Spent with Patient Time attestation: Total time managing care of this patient today _30___ minutes. Time spent: Less than 30 minutes Discharge Plan Discharge Anticipated Discharge Date/Time: 02/18/23 11:30 Patient Disposition: Home, Self-Care Discharge Diagnosis: Schizoaffective d/o, ADHD Referrals: [facility] [Other] - 1 Week (If you have any questions or concerns, please utilize the walk in service or give them a call. ) Discharge Medications: New lamotrigine 25 mg Tablet 25 mg PO BEDTIME 30 Days Qty: 30 0RF risperidone 2 mg Tablet 2 mg PO BID 30 Days Qty: 60 0RF Discontinued risperidone 2 mg Tablet 2 mg PO BEDTIME Qty: 30 0RF risperidone 1 mg Tablet 1 mg PO DAILY Qty: 30 0RF Discharge Orders: Discharge Order (Routine); Ordered 02/18/23 Ordered By: Phoebe Richards Diet: Regular diet Activity on Discharge: As tolerated Stand Alone Forms: Patient Portal Discharge page, Community Support Care Plan Goals: Maintain mood and safe behaviors Take medications as prescribed Practice coping skills Continue with outpatient providers and reach out to them as needed Health Concerns: Mood stability and behaviors Plan of Treatment: Follow up with your PCP, psychiatric provider and other outpatient providers regarding above concerns Take medications as prescribed Assessment: Patient was interviewed prior to discharge and found to be fully oriented and without any SI or HI. Patient has insight and demonstrates good judgment in terms of wanting to pursue treatment. Patient is not in imminent risk of harm to self or others and has a safety plan that includes presenting to the closest ER or calling 911 if feeling unsafe. Patient has been observed closely by nursing and unit staff throughout admission; patient has not engaged in any behaviors that suggest dangerousness to self or others and has demonstrated appropriate behaviors and impulse control. Discharge Date/Time: 02/18/23 10:45
[2023-02-18] MEDS: risperiDONE 2 MG TABLET PO (10:26)
== END 2023-02-18 10:45 | disposition home or self-care (01) | DRG 750 ==
LOC: HO.ED 14:48 → HO.PADLT16 16:17
PROVIDERS: Physician Assistant; Admitting Provider Psychiatry & Neurology Psychiatry; Emergency Provider Student in an Organized Health Care Education/Training Program; Responsible Provider Registered Nurse; Visit Provider Psychiatry & Neurology Psychiatry
DX: F25.0 Schizoaffective disorder, bipolar type (principal); F90.9 Attention-deficit hyperactivity disorder, unspecified type; Z20.822 Contact with and (suspected) exposure to COVID-19
CPT/HCPCS: 36415; 80048; 80076; 80143; 80179; 80307; 81001; 85025; 87635; 93005; 99285; S9485

== ENCOUNTER → 2023-02-14 16:16 | Outpatient (BNV) | payer OTHER, SELFPAY | PROVIDERS: Admitting Provider Psychiatry & Neurology Psychiatry; Emergency Provider Student in an Organized Health Care Education/Training Program; Responsible Provider Registered Nurse; Visit Provider Psychiatry & Neurology Psychiatry | DX: F25.0 Schizoaffective disorder, bipolar type (principal); F90.9 Attention-deficit hyperactivity disorder, unspecified type | CPT/HCPCS: 90792; 99231; 99233; 99238 ==

== ENCOUNTER 2023-08-08 15:13 | Emergency (ER) | payer OTHER, SELFPAY ==
[2023-08-08 15:24] VITALS: BP 124/72; BP 138/74; PULSE 104; PULSE 108; RESP 16; TEMP 36.8; O2SAT 95; O2SAT 98; BMI 30.3
--- NOTE | 2023-08-08 15:26 | MHC.CARE ---
Call from patient's mother as her son was on the way to the ED. Has been taking Risperidone 2mg twice a day and has been doing very well until recently. Took some Concerta and confessed he vaped THC, the same type that induced psychosis in the past, has been anxious and wanted to go to the ED and called 911 himself. Mother did not think the situation was that acute but patient. Per mom, please do not change medication, it has been working fine and do not give Xanex, Ativan fine. In addition, patient has been drinking and urinating excessively, vomited this am, has no PCP.
[2023-08-08 15:41] LABS: MANUAL DIFF FLAG NO
[2023-08-08 15:44] LABS: Basophils Percent Auto 0.3 % (0-2); Eosinophils Percent Auto 0.1 % (0-4); Hematocrit 43.8 % (42.0-52.0); Hemoglobin 15.8 g/dl (14.0-18.0); Imm Gran Abs Auto 0.03 X10*3/uL (0.00-0.03); Imm Gran Pct Auto 0.3 % (0.0-0.4); Lymphocytes Absolute Auto 1.4 X10*3/uL (1.2-4.9); Mean Corpuscular HGB Conc 36.1 g/dl (31.0-36.0); Mean Corpuscular Volume 85.9 fL (80.0-98.0); Mean Platelet Volume 10.1 fL (9.4-12.4); Monocytes Absolute Auto 0.6 X10*3/uL (0.1-1.2); Neutrophils Absolute Auto 7.2 x10*3/uL (2.0-8.3); Neutrophils Percent Auto 78.3 % (45-73); Platelet Count 305 X10*3/uL (160-400); Red Cell Distribution Width 11.7 % (11.0-16.0); White Blood Count 9.2 X10*3/uL (4.8-10.8)
[2023-08-08 15:52] LABS: Amphetamine Screen Urine Not Detected (Not Detect); Barbiturates, Urine Not Detected (Not Detect); Benzodiazepines Screen Urine Not Detected (Not Detect); Buprenorphine Scr Not Detected (Not Detect); Cannabinoid Screen Urine Not Detected (Not Detect); Cocaine Screen Urine Not Detected (Not Detect); Fentanyl, urine Not Detected (Not Detect); Methadone Screen, Urine Not Detected (Not Detect); Opiate Screen Urine Not Detected (Not Detect); Oxycodone Screen Urine Not Detected (Not Detect); Phencyclidine Screen Urine Not Detected (Not Detect)
[2023-08-08 16:03] LABS: Alanine Aminotransferase 45 U/L (0-40); Albumin Level 4.9 g/dL (3.5-5.0); Alkaline Phosphatase 68 U/L (39-117); Anion Gap 13 (12-20); Aspartate Amino Transferase 21 U/L (5-37); Blood Urea Nitrogen 13 mg/dL (9-16); Calcium 10.1 mg/dL (8.4-10.2); Carbon Dioxide 26 mmol/L (22-29); Chloride 105 mmol/L (96-108); Creatinine Clr Calc Pharmacy 100.1; Estimated Glomerular Filt Rate > 60; Ethanol < 10 mg/dL; Glucose Random 94 mg/dL (60-115); Potassium 3.9 mmol/L (3.3-5.1); Sodium 140 mmol/L (135-145); Total Protein 8.1 g/dL (6.5-8.0)
[2023-08-08] MEDS: hydrOXYzine HCL 50 MG TABLET PO (16:10)
--- NOTE | 2023-08-08 16:27 | ED_ITS ---
HPI - General Adult General Chief complaint: Psychiatric Symptoms Stated complaint: CRISIS EVAL,FEELS MEDS NOT WORKING PER EMS Source: patient Mode of arrival: EMS History of Present Illness HPI narrative: 27-year-old male with history of schizoaffective disorder, bipolar, ADHD, anxiety and cannabis abuse presents with anxiety. Patient states he was smoking marijuana, from a new source. Patient in turn felt ?like I was having an out-of-body experience?. Associated anxiety. Patient denies SI, HI, use of other illicit substances, or alcohol. Related Data Previous Rx's ?Medication ?Instructions ?Recorded lamotrigine 25 mg tablet 25 mg PO BEDTIME 30 days #30 tabs 02/18/23 risperidone 2 mg tablet 2 mg PO BID 30 days #60 tabs 02/18/23 Allergies Allergy/AdvReac Type Severity Reaction Status Date / Time strawberry Allergy Mild Itching Verified 08/08/23 15:47 cefazolin Allergy Unknown Itching Verified 08/08/23 15:47 sulfamethoxazole Allergy Unknown Itching Verified 08/08/23 15:47 [From Bactrim] trimethoprim [From Bactrim] Allergy Unknown Itching Verified 08/08/23 15:47 lorazepam [From Ativan] AdvReac Agitated Verified 08/08/23 15:47 Review of Systems 2 Review of Systems: Yes all other systems are reviewed and are negative PMFSH Past Medical History Medical History Bipolar 1 disorder Cannabis abuse ADHD Anxiety Social History Social History Household Members: Family Housing: House Do you presently have visiting nurse or other home services: No Patient Tobacco Use Status: Never used Tobacco Tobacco use type: Cigar e-Cigarette/Vaping Use: Currently Using Second Hand Smoke Exposure: No Substance Use Type: Marijuana Advance Directives: No Advance Directives Information Provided: No Do you have a plan to hurt others: No Plan service: No Sexual orientation: Decline to Answer Physical Exam ED Vital Signs: Vital Signs - 24 hr 08/08/23 15:24 08/08/23 17:08 Temperature 98.3 F 98.2 F Pulse Rate 108 H 88 Respiratory Rate 16 14 Blood Pressure 124/72 130/60 Pulse Oximetry 95 98 Oxygen Delivery Method Room Air Room Air BMI result Body Mass Index 30.3 Const Other: Alert well in appearance Orientation/consciousness: oriented to person, oriented to place and oriented to time Eyes Pupils: Equal, round and reactive pupils present Resp Other: Nonlabored respirations Cardio Other: Normal peripheral perfusion Neuro General: oriented to person, oriented to place, oriented to time, gait normal, no focal motor deficits and CN's II-XI intact bilaterally Cranial nerves: Yes Equal, round and reactive pupils present Extrem Other: Strength bilateral upper and lower extremities walking with a normal steady gait Medications Administered Discontinued Medications Generic Name Dose Route Start Last Admin Trade Name [place] PRN Reason Stop Dose Admin Hydroxyzine HCl 50 mg 08/08/23 16:02 08/08/23 16:10 Hydroxyzine Hcl 50 Mg Tablet PO 08/08/23 16:03 50 mg ONCE ONE Administration Medical Decision Making Medical Decision Making [facility] Narrative: 27-year-old male with history of schizoaffective disorder, bipolar, ADHD, anxiety and cannabis abuse presents with anxiety. Patient states he was smoking marijuana, from a new source. Patient in turn felt ?like I was having an out-of-body experience?. Associated anxiety. Patient denies SI, HI, use of other illicit substances, or alcohol. Problem: Substance abuse, psychiatric illness History: Per patient I have considered the following differential diagnoses: SI, HI, decompensated psychiatric illness, drug/alcohol intoxication Plan: Patient does not require a behavioral health assessment, he has not suicidal, nor homicidal, he is not decompensated. Perhaps the new marijuana he is smoking was laced with another product. To note he is hemodynamically stable, he is not altered, will screen basic labs and utox, giving hydroxyzine for his anxiety. I have independently reviewed the following tests: Labs: No leukocytosis, no anemia, no electrolyte abnormality, ethanol negative, U tox negative I have advised the patient that perhaps he needs to stay away from using the marijuana if it makes him feel anxious. Differential Diagnosis SI, HI, decompensated psychiatric illness, drug/alcohol intoxication Lab Data 08/08/23 15:35 08/08/23 15:35 Labs: Lab Results 08/08/23 Range/Units 15:35 WBC 9.2 (4.8-10.8) X10*3/uL RBC 5.10 (4.60-5.80) X10*6/uL Hgb 15.8 (14.0-18.0) g/dl Hct 43.8 (42.0-52.0) % MCV 85.9 (80.0-98.0) fL MCH 31.0 (27.0-33.0) pg MCHC 36.1 H (31.0-36.0) g/dl RDW 11.7 (11.0-16.0) % Plt Count 305 D (160-400) X10*3/uL MPV 10.1 (9.4-12.4) fL Immature Gran % (Auto) 0.3 (0.0-0.4) % Neut % (Auto) 78.3 H (45-73) % Lymph % (Auto) 15.0 L (20-40) % [place] % (Auto) 6.0 (2-11) % Eos % (Auto) 0.1 (0-4) % Baso % (Auto) 0.3 (0-2) % Lymph # (Auto) 1.4 (1.2-4.9) X10*3/uL [place] # (Auto) 0.6 (0.1-1.2) X10*3/uL Eos # (Auto) 0.0 (0.0-0.4) X10*3/uL Baso # (Auto) 0.0 (0.0-0.2) X10*3/uL Abs Immat Gran (auto) 0.03 (0.00-0.03) X10*3/uL Absolute Neuts (auto) 7.2 (2.0-8.3) x10*3/uL Absolute Nucleated RBC 0.000 (0.0-0.012) X10*3/uL Nucleated RBC % (auto) 0.0 (0.0-0.2) /100WBC Sodium 140 (135-145) mmol/L Potassium 3.9 (3.3-5.1) mmol/L Chloride 105 (96-108) mmol/L Carbon Dioxide 26 (22-29) mmol/L Anion Gap 13 (12-20) BUN 13 (9-16) mg/dL Creatinine 1.27 (0.5-1.4) mg/dL Estim Creat Clear Calc 100.1 Estimated GFR > 60 Random Glucose 94 (60-115) mg/dL Calcium 10.1 (8.4-10.2) mg/dL Total Bilirubin 1.0 (0.0-1.0) mg/dL AST 21 (5-37) U/L ALT 45 H (0-40) U/L Alkaline Phosphatase 68 (39-117) U/L Total Protein 8.1 H (6.5-8.0) g/dL Albumin 4.9 (3.5-5.0) g/dL Urine Opiates Screen Not Detected (Not Detect) Ur Buprenorphine Scrn Not Detected (Not Detect) ng/mL Ur Oxycodone Screen Not Detected (Not Detect) ng/mL Urine Methadone Screen Not Detected (Not Detect) ng/mL Urine Fentanyl Screen Not Detected (Not Detect) Ur Barbiturates Screen Not Detected (Not Detect) Ur Phencyclidine Scrn Not Detected (Not Detect) Ur Amphetamines Screen Not Detected (Not Detect) U Benzodiazepines Scrn Not Detected (Not Detect) Urine Cocaine Screen Not Detected (Not Detect) U Marijuana (THC) Screen Not Detected (Not Detect) Ethyl Alcohol < 10 mg/dL Discharge Plan Discharge Clinical Impression: Anxiety Patient Disposition: Home, Self-Care Prescriptions: No Action lamotrigine 25 mg Tablet 25 mg PO BEDTIME 30 Days Qty: 30 0RF risperidone 2 mg Tablet 2 mg PO BID 30 Days Qty: 60 0RF Interventions: [place]-Suicide Risk Severity Scale Last Done: 08/08/23 17:10 ED Discharge Assessment Last Done: 08/08/23 17:08 Discharge Date/Time: 08/08/23 17:10 Print Language: Pashto
[2023-08-08 17:08] VITALS: BP 130/60; PULSE 88; RESP 14; TEMP 36.8; O2SAT 98
== END 2023-08-08 17:10 | disposition home or self-care (01) ==
PROVIDERS: Physician Assistant Medical; Emergency Provider Emergency Medicine
DX: F41.9 Anxiety disorder, unspecified (principal); F12.10 Cannabis abuse, uncomplicated
CPT/HCPCS: 36415; 80053; 80307; 85025; 99283

== ENCOUNTER 2023-11-29 20:49 | Inpatient (IN) | payer OTHER, SELFPAY ==
[2023-11-29 19:50] VITALS: BMI 27.2
[2023-11-29 23:00] VITALS: BP 122/82; PULSE 109; RESP 18; TEMP 37; O2SAT 94
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
[2023-11-30 08:00] VITALS: BP 121/59; PULSE 69; RESP 14; TEMP 36.2; O2SAT 98
--- NOTE | 2023-11-30 09:22 | P.CONHOSP_ITS ---
History of Present Illness Data of Consult Service Date: 11/30/23 Requesting physician: Toni Balderas Primary Care Provider: Unknown Physician HPI Reason for consult: medical H&P 27-year-old male without any significant past medical history admitted to adult Psychiatry with consult placed hospitalist service for medical H&P. The patient is resting comfortably in bed in his initially agreeable to exam, however long term through physical exam patient declines further questionnaire examination. While at [facility] ED, hematology studies unremarkable, renal function normal, electrolyte levels normal. T bili was elevated at 2.6 with AST 21, ALT 73. Reviewing prior labs from [facility] [place] does have history of elevated bilirubin but has never undergone imaging. Patient denies any illicit drug use, marijuana use, alcohol use, or cigarette smoking. Review of Systems Review of Systems: Yes all other systems are reviewed and are negative [facility] Medical History Bipolar 1 disorder Cannabis abuse ADHD Anxiety Social History Household Members: Family Housing: House Do you presently have visiting nurse or other home services: No Patient Tobacco Use Status: Never used Tobacco Tobacco use type: Cigar e-Cigarette/Vaping Use: Currently Using Second Hand Smoke Exposure: No Substance Use Type: Marijuana Currently Displaying Signs/Symptoms of Drug Intoxication Withdrawal: No Advance Directives: No Advance Directives Information Provided: No Do you have thoughts of harming others: None Do you have a plan to hurt others: No Plan service: No Sexual orientation: Decline to Answer Meds Allergies Allergy/AdvReac Type Severity Reaction Status Date / Time strawberry Allergy Mild Itching Verified 08/08/23 15:47 cefazolin Allergy Unknown Itching Verified 08/08/23 15:47 sulfamethoxazole Allergy Unknown Itching Verified 08/08/23 15:47 [From Bactrim] trimethoprim [From Bactrim] Allergy Unknown Itching Verified 08/08/23 15:47 lorazepam [From Ativan] AdvReac Agitated Verified 08/08/23 15:47 lithium AdvReac Unknown other Uncoded 11/29/23 21:03 Active Medications: Current Medications Acetaminophen (Acetaminophen 325 Mg Tablet) 650 mg PO Q6H PRN PRN Reason: Headache/Pain Mild Scale (1-3) Al Hydroxide/Mg Hydroxide (Magnesium Hydrox/Alum Hydrox 30 Ml Oral.Susp) 30 ml PO Q6H PRN PRN Reason: Heartburn/Nausea Hydroxyzine HCl (Hydroxyzine Hcl 50 Mg Tablet) 50 mg PO Q6H PRN PRN Reason: Anxiety Magnesium Hydroxide (Milk Of Magnesia 30 Ml Oral.Susp) 30 ml PO DAILY PRN PRN Reason: Constipation Nicotine (Nicotine 21 Mg Patch.Td24) 21 mg TRANSDERMA DAILY PRN PRN Reason: smoking cessation Nicotine Polacrilex (Nicotine Polacrilex 2 Mg Gum) 4 mg BUCCAL Q2H PRN PRN Reason: Nicotine Cravings Olanzapine (Olanzapine 5 Mg Tablet) 5 mg PO TID PRN PRN Reason: moderate agitation Olanzapine (Olanzapine Odt 10 Mg Tab.Rapdis) 10 mg TRANSLINGU BID PRN PRN Reason: mod-severe agitation Risperidone (Risperidone 2 Mg Tablet) 2 mg PO BID JESSICA Last Admin: 11/30/23 08:59 Dose: Not Given Trazodone HCl (Trazodone Hcl 50 Mg Tablet) 50 mg PO BEDTIME MRX1 PRN PRN Reason: Insomnia Physical Exam Vital Signs and Narrative: Vital Signs: Last Vital Signs Temp 97.1 F 11/30/23 08:00 Pulse 69 11/30/23 08:00 Resp 14 11/30/23 08:00 BP 121/59 L 11/30/23 08:00 Pulse Ox 98 11/30/23 08:00 O2 Del Method Room Air 11/30/23 08:00 BMI result Body Mass Index 27.2 Constitutional - Awake and Alert, No apparent distress Eyes - PERRLA, EOMI Cardiovascular - S1S2, RRR, No edema Respiratory - Normal lung expansion, Normal respiratory effort, No respiratory distress, CTA bilaterally Gastrointestinal - refused Extremities - no calf tenderness bilaterally, no swelling Musculoskeletal - Normal inspection, normal ROM Skin - Warm/Dry Neurological - Alert & oriented x3, CN II-XII in tact, Refused further exam Assessment and Plan (1) Hyperbilirubinemia: Status: Acute (2) Routine medical exam: Status: Acute Plan 27-year-old male without any significant past medical history admitted to adult Psychiatry with consult placed hospitalist service for medical H&P. #Mood disorder/psychosis -plan per psychiatry #Hyperbilirubinemia- mild, no jaundice -has history of elevated tbili, but at [facility] was 2.6, which is higher than previous. Denies substance use -Check U/S RUQ. If no acute findings, outpt follow up with GI Will continue following for results
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
[2023-11-30 20:00] VITALS: BP 124/59; PULSE 60; RESP 12; TEMP 36.4; O2SAT 95
[2023-12-01 08:00] VITALS: BP 111/81; PULSE 100; RESP 18; TEMP 36.4; O2SAT 96
--- NOTE | 2023-12-01 10:13 | P.PNPSI_ITS ---
Subjective Subjective Date of Service: 12/01/23 Reason For Visit: Schizophrenia Interim History: Met with patient; discussed with team Patient's mother communicated to psychosocial rehabilitation counselor that patient is not allowed back at the house unless he is willing to take medication. Patient remains in bed sleeping most of the day. Difficult to arouse Senior Cognos Developer communicated this to patient who continued to refuse. Senior Cognos Developer discussed how he would feel about going to a halfway and patient said he does not think his parents will make him do that. Senior Cognos Developer press the issue and patient said what would you do if you felt like you didn't need medication and they were trying to make you take it... patient did not wait for an answer and just said if that is what they require he will just not go back home. He will over and refused to continue talking Senior Cognos Developer talked with patient's mother Patsy who is exceedingly worried about him. She says he sleeps 16 hours a day, will sometimes go 2 days without eating and refuses all offers for psychiatric treatment of any kind. Says that he has been increasingly agitated lately and will aggressively approach family, unprovoked yelling about something; mother reports that family locks their bedroom door so he can not barge in and that her 13-year-old daughter is terrified of him. Over the past week and a half he came in screaming at his father stop texting my Jey... And smacked a cup out of his father's hand. He barged into his brother's room who was playing online video game with friends and aggressively yelled stop fucking talking about me... He also yelled out of no where for Brandon to get out of the house which surprised family since he has not spoken to this person in 5 years. The other day he got angry about some unknown thing, barged into his father's thus and pushed the chair father sitting in who then trouble to the floor. Patient's family was going to call crisis/911 and he started swearing at them to not call. Mental Status Exam Mental Status Exam Narrative: Pt is alert and oriented; behavior is isolative, spending all time and room, sleeping; difficult to arouse, initially cooperative but quickly becomes irritable; patient is not in distress; dressed in underwear with unkempt hair and marginal hygiene; mood is described as irritable and affect constricted; eye contact avoidant; Speech is normal rate, volume and prosody and not pressured; psychomotor retardation present; thought process is organized and goal directed; Thought content is undisclosed or on not knowing why parents want him hospitali zed; otherwise pertinent to relevant topics; denies any SI/HI. Patient denies AVH however does appear to be internally preoccupied. Patients insight and judgment impaired Diagnostics Vital Signs (24Hr): Vital Signs - 24 hr 11/30/23 20:00 12/01/23 08:00 Temperature 97.6 F 97.5 F Pulse Rate 60 100 Respiratory Rate 12 18 Blood Pressure 124/59 L 111/81 Pulse Oximetry 95 96 Oxygen Delivery Method Room Air Room Air BMI result Body Mass Index 27.2 Medications Medications Current Medications Acetaminophen (Acetaminophen 325 Mg Tablet) 650 mg PO Q6H PRN PRN Reason: Headache/Pain Mild Scale (1-3) Al Hydroxide/Mg Hydroxide (Magnesium Hydrox/Alum Hydrox 30 Ml Oral.Susp) 30 ml PO Q6H PRN PRN Reason: Heartburn/Nausea Hydroxyzine HCl (Hydroxyzine Hcl 50 Mg Tablet) 50 mg PO Q6H PRN PRN Reason: Anxiety Magnesium Hydroxide (Milk Of Magnesia 30 Ml Oral.Susp) 30 ml PO DAILY PRN PRN Reason: Constipation Nicotine (Nicotine 21 Mg Patch.Td24) 21 mg TRANSDERMA DAILY PRN PRN Reason: smoking cessation Nicotine Polacrilex (Nicotine Polacrilex 2 Mg Gum) 4 mg BUCCAL Q2H PRN PRN Reason: Nicotine Cravings Olanzapine (Olanzapine 5 Mg Tablet) 5 mg PO TID PRN PRN Reason: moderate agitation Olanzapine (Olanzapine Odt 10 Mg Tab.Rapdis) 10 mg TRANSLINGU BID PRN PRN Reason: mod-severe agitation Risperidone (Risperidone 2 Mg Tablet) 2 mg PO BID JESSICA Last Admin: 11/30/23 21:18 Dose: Not Given Trazodone HCl (Trazodone Hcl 50 Mg Tablet) 50 mg PO BEDTIME MRX1 PRN PRN Reason: Insomnia Allergies Allergies Allergy/AdvReac Type Severity Reaction Status Date / Time strawberry Allergy Mild Itching Verified 08/08/23 15:47 cefazolin Allergy Unknown Itching Verified 08/08/23 15:47 sulfamethoxazole Allergy Unknown Itching Verified 08/08/23 15:47 [From Bactrim] trimethoprim [From Bactrim] Allergy Unknown Itching Verified 08/08/23 15:47 lorazepam [From Ativan] AdvReac Agitated Verified 08/08/23 15:47 lithium AdvReac Unknown other Uncoded 11/29/23 21:03 Assessment & Plan Assessment & Plan (1) Schizoaffective disorder, bipolar type: Status: Acute Code(s): F25.0 - Schizoaffective disorder, bipolar type (2) Hyperbilirubinemia: Status: Acute Code(s): E80.6 - Other disorders of bilirubin metabolism (3) ADHD: Status: Chronic Code(s): F90.9 - Attention-deficit hyperactivity disorder, unspecified type Plan HPI: Patient is a 27-year-old male with history of schizo affective disorder bipolar type, who presents for increasing aggressive and psychotic behaviors in the [facility]. Patient is sleeping on approach but wakes up. He is friendly and cooperative. He denies any psychiatric symptoms at all. Denies any depression, SI, HI, anxiety, auditory hallucinations or delusional thinking. He says he has no idea why he was sent to the hospital. He says he keeps asking his parents why but they will not tell him other than to say they are concerned. He says they want me on Risperdal but will not tell me why... He gives permission to call both of his parents and gives comic book writer their phone number. He denies that he pushed his father out of a chair. He is adamant that he does not need any psychiatric medications and that they have never helped him anyway. Senior Cognos Developer reviewed options and also positive effect they have had at past admissions however he politely declines again saying they never helped with anything anyway. Patient denies any substance abuse or alcohol abuse. He says he quit cannabis more than a year ago. Patient did acknowledge that he does have anxiety about fitting in with other people and so finds it hard to get a job or keep a job. Senior Cognos Developer discussed medication that could help with his however he continued to refuse. He said that he would like to try Xanax, that he heard Xanax could work however he refuses to try clonazepam or other longer acting benzo. -At sending facility, patient threatened to punch . -mother reported to ED staff that patient has been aggressive, screaming at family, pushed his father out of chair who found the ground, sleeping up to or more than 16 hours a day, not attending to any ADLs, seemingly responding to internal stimuli. Hospital course: 12/01 Patient's mother communicated to psychosocial rehabilitation counselor that patient is not allowed back at the house unless he is willing to take medication. Patient remains in bed sleeping most of the day. Difficult to arouse Senior Cognos Developer communicated this to patient who continued to refuse. Senior Cognos Developer discussed how he would feel about going to a halfway and patient said he does not think his parents will make him do that. Senior Cognos Developer press the issue and patient said what would you do if you felt like you didn't need medication and they were trying to make you take it... patient did not wait for an answer and just said if that is what they require he will just not go back home. He will over and refused to continue talking Collateral: Senior Cognos Developer talked with patient's mother Patsy who is exceedingly worried about him. She says he sleeps 16 hours a day, will sometimes go 2 days without eating and refuses all offers for psychiatric treatment of any kind. Says that he has been increasingly agitated lately and will aggressively approach family, unprovoked yelling about something; mother reports that family locks their bedroom door so he can not barge in and that her 13-year-old daughter is terrified of him. Over the past week and a half he came in screaming at his father stop texting my Jey... And smacked a cup out of his father's hand. He barged into his brother's room who was playing online video game with friends and aggressively yelled stop fucking talking about me... He also yelled out of no where for Brandon to get out of the house which surprised family since he has not spoken to this person in 5 years. The other day he got angry about some unknown thing, barged into his father's thus and pushed the chair father sitting in who then trouble to the floor. Patient's family was going to call crisis/911 and he started swearing at them to not call. -Patient refused abdominal ultrasound despite several attempts Plan: CV Q 15 minute checks Restarted Risperdal 2 mg b.i.d.; patient has been refusing Medication history: Risperdal, Wellbutrin #Hyperbilirubinemia on admission- mild, no jaundice -has history of elevated tbili, but at [facility] was 2.6, which is higher than previous. Denies substance use -Check U/S RUQ. If no acute findings, outpt follow up with GI Patient educated on: diagnosis and medication risk/benefits Informed Consent: does not understand Reason for continued inpatient stay Substantial Risk for: inability to function Time Spent With Patient Time: Total time managing care of this patient today ____ minutes.
[2023-12-01 10:43] VITALS: BP 111/81; PULSE 100; RESP 18; TEMP 36.4; O2SAT 96
--- NOTE | 2023-12-01 16:06 | PM.EVENT ---
Event Note Date of Service: 12/01/23 Event Note: Patient is a 27-year-old male admitted to [facility] psychiat[facility] unit. Follow-up for elevated bilirubin. Patient again has refused RUQ ultrasound. Will sign off for now. Please re-consult if patient becomes symptomatic or agrees to additional imaging and workup. Time Spent With Patient Time: Total time managing care of this patient today ____ minutes.
[2023-12-01 20:00] VITALS: BP 120/65; PULSE 67; TEMP 36.3; O2SAT 97
[2023-12-02 08:58] VITALS: BP 128/60; PULSE 93; RESP 16; TEMP 36.2; O2SAT 99
--- NOTE | 2023-12-02 19:54 | P.PNPSI_ITS ---
Subjective Subjective Date of Service: 12/02/23 Reason For Visit: Schizophrenia Interim History: discussed with team Patient is sleeping in bed, would not awaken. Mental Status Exam Mental Status Exam Narrative: Pt is alert and oriented; behavior is isolative, spending all time and room, sleeping; difficult to arouse; patient is not in distress; dressed in underwear with unkempt hair and marginal hygiene; mood is described as irritable and affect constricted; eye contact avoidant; Speech is normal rate, volume and prosody and not pressured; psychomotor retardation present; thought process is organized and goal directed; Thought content is undisclosed or on not knowing why parents want him hospitalized; otherwise pertinent to relevant topics; denies any SI/HI. Patient denies AVH however does appear to be internally preoccupied. Patients insight and judgment impaired Diagnostics Vital Signs (24Hr): Vital Signs - 24 hr 12/01/23 20:00 12/02/23 08:58 Temperature 97.4 F 97.2 F Pulse Rate 67 93 Respiratory Rate 16 Blood Pressure 120/65 128/60 Pulse Oximetry 97 99 Oxygen Delivery Method Room Air Room Air BMI result Body Mass Index 27.2 Medications Medications Current Medications Acetaminophen (Acetaminophen 325 Mg Tablet) 650 mg PO Q6H PRN PRN Reason: Headache/Pain Mild Scale (1-3) Al Hydroxide/Mg Hydroxide (Magnesium Hydrox/Alum Hydrox 30 Ml Oral.Susp) 30 ml PO Q6H PRN PRN Reason: Heartburn/Nausea Hydroxyzine HCl (Hydroxyzine Hcl 50 Mg Tablet) 50 mg PO Q6H PRN PRN Reason: Anxiety Magnesium Hydroxide (Milk Of Magnesia 30 Ml Oral.Susp) 30 ml PO DAILY PRN PRN Reason: Constipation Nicotine (Nicotine 21 Mg Patch.Td24) 21 mg TRANSDERMA DAILY PRN PRN Reason: smoking cessation Nicotine Polacrilex (Nicotine Polacrilex 2 Mg Gum) 4 mg BUCCAL Q2H PRN PRN Reason: Nicotine Cravings Olanzapine (Olanzapine 5 Mg Tablet) 5 mg PO TID PRN PRN Reason: moderate agitation Olanzapine (Olanzapine Odt 10 Mg Tab.Rapdis) 10 mg TRANSLINGU BID PRN PRN Reason: mod-severe agitation Risperidone (Risperidone 2 Mg Tablet) 2 mg PO BID JESSICA Last Admin: 12/02/23 09:15 Dose: Not Given Trazodone HCl (Trazodone Hcl 50 Mg Tablet) 50 mg PO BEDTIME MRX1 PRN PRN Reason: Insomnia Allergies Allergies Allergy/AdvReac Type Severity Reaction Status Date / Time strawberry Allergy Mild Itching Verified 08/08/23 15:47 cefazolin Allergy Unknown Itching Verified 08/08/23 15:47 sulfamethoxazole Allergy Unknown Itching Verified 08/08/23 15:47 [From Bactrim] trimethoprim [From Bactrim] Allergy Unknown Itching Verified 08/08/23 15:47 lorazepam [From Ativan] AdvReac Agitated Verified 08/08/23 15:47 lithium AdvReac Unknown other Uncoded 11/29/23 21:03 Assessment & Plan Assessment & Plan (1) Schizoaffective disorder, bipolar type: Status: Acute Code(s): F25.0 - Schizoaffective disorder, bipolar type (2) Hyperbilirubinemia: Status: Acute Code(s): E80.6 - Other disorders of bilirubin metabolism (3) ADHD: Status: Chronic Code(s): F90.9 - Attention-deficit hyperactivity disorder, unspecified type Plan HPI: Patient is a 27-year-old male with history of schizo affective disorder bipolar type, who presents for increasing aggressive and psychotic behaviors in the community. Patient is sleeping on approach but wakes up. He is friendly and cooperative. He denies any psychiatric symptoms at all. Denies any depression, SI, HI, anxiety, auditory hallucinations or delusional thinking. He says he has no idea why he was sent to the hospital. He says he keeps asking his parents why but they will not tell him other than to say they are concerned. He says they want me on Risperdal but will not tell me why... He gives permission to call both of his parents and gives commercial underwriter their phone number. He denies that he pushed his father out of a chair. He is adamant that he does not need any psychiatric medications and that they have never helped him anyway. Motor Vehicle Light Assembler reviewed options and also positive effect they have had at past admissions however he politely declines again saying they never helped with anything anyway. Patient denies any substance abuse or alcohol abuse. He says he quit cannabis more than a year ago. Patient did acknowledge that he does have anxiety about fitting in with other people and so finds it hard to get a job or keep a job. Motor Vehicle Light Assembler discussed medication that could help with his however he continued to refuse. He said that he would like to try Xanax, that he heard Xanax could work however he refuses to try clonazepam or other longer acting benzo. -At sending facility, patient threatened to punch . -mother reported to ED staff that patient has been aggressive, screaming at family, pushed his father out of chair who found the ground, sleeping up to or more than 16 hours a day, not attending to any ADLs, seemingly responding to internal stimuli. Collateral: Motor Vehicle Light Assembler talked with patient's mother Patsy who is exceedingly worried about him. She says he sleeps 16 hours a day, will sometimes go 2 days without eating and refuses all offers for psychiatric treatment of any kind. Says that he has been increasingly agitated lately and will aggressively approach family, unprovoked yelling about something; mother reports that family locks their bedroom door so he can not barge in and that her 13-year-old daughter is terrified of him. Over the past week and a half he came in screaming at his father stop texting my Jey... And smacked a cup out of his father's hand. He barged into his brother's room who was playing online video game with friends and aggressively yelled stop fucking talking about me... He also yelled out of no where for Brandon to get out of the house which surprised family since he has not spoken to this person in 5 years. The other day he got angry about some unknown thing, barged into his father's thus and pushed the chair father sitting in who then trouble to the floor. Patient's family was going to call crisis/911 and he started swearing at them to not call Hospital course: 11/30 Patient's mother communicated to social service agency director that patient is not allowed back at the house unless he is willing to take medication. Patient remains in bed sleeping most of the day. Difficult to arouse Motor Vehicle Light Assembler communicated this to patient who continued to refuse. Motor Vehicle Light Assembler discussed how he would feel about going to a snf and patient said he does not think his parents will make him do that. Motor Vehicle Light Assembler press the issue and patient said what would you do if you felt like you didn't need medication and they were trying to make you take it... patient did not wait for an answer and just said if that is what they require he will just not go back home. He will over and refused to continue talking -Patient refused abdominal ultrasound despite several attempts 12/01 patient not willing to engage -talked again with mother who is his healthcare proxy; she reported that the other day Van yelled out loud that he was going to kill himself; denies any history of self-harm Plan: CV Q 15 minute checks Restarted Risperdal 2 mg b.i.d.; patient has been refusing Medication history: Risperdal, Wellbutrin #Hyperbilirubinemia on admission- mild, no jaundice -has history of elevated tbili, but at [facility] was 2.6, which is higher than previous. Denies substance use -Check U/S RUQ. If no acute findings, outpt follow up with GI Reason for continued inpatient stay Substantial Risk for: inability to function Time Spent With Patient Time: Total time managing care of this patient today ____ minutes.
[2023-12-02 20:00] VITALS: BP 101/67; PULSE 88; TEMP 36.2; O2SAT 98
[2023-12-03 08:00] VITALS: BP 111/67; PULSE 56; RESP 16; TEMP 36.4; O2SAT 97
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
[2023-12-05 08:00] VITALS: RESP 18
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
--- NOTE | 2023-12-05 19:42 | PC.NURSE ---
Pt signed a three day notice with social work to be up on 12/07
[2023-12-06 08:00] VITALS: RESP 18
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
[2023-12-07 08:00] VITALS: RESP 18
--- NOTE | 2023-12-07 10:56 | HO.PSYCHPN ---
Subjective Subjective Date of Service: 12/07/23 Reason For Visit: Schizophrenia Subjective Notes: Section 12B Interim History: Pt slept all night. Pt mostly in bed, very malodorous, not attending to his hygiene, nor showing any signs of being able to care for himself. He appears internally preoccupied, not fully forthcoming with extend of delusional content suspect due to fear of having to stay long on the unit. Not waking up nor wanting to alk with this technical document writer. decline medications, VS, eating somewhat- Review of Systems Review of Systems Yes all other systems are reviewed and are negative Diagnostics Vital Signs (24Hr): Vital Signs - 24 hr 12/07/23 08:00 Respiratory Rate 18 BMI result Body Mass Index 27.2 Medications Medications Current Medications Acetaminophen (Acetaminophen 325 Mg Tablet) 650 mg PO Q6H PRN PRN Reason: Headache/Pain Mild Scale (1-3) Al Hydroxide/Mg Hydroxide (Magnesium Hydrox/Alum Hydrox 30 Ml Oral.Susp) 30 ml PO Q6H PRN PRN Reason: Heartburn/Nausea Hydroxyzine HCl (Hydroxyzine Hcl 50 Mg Tablet) 50 mg PO Q6H PRN PRN Reason: Anxiety Magnesium Hydroxide (Milk Of Magnesia 30 Ml Oral.Susp) 30 ml PO DAILY PRN PRN Reason: Constipation Nicotine (Nicotine 21 Mg Patch.Td24) 21 mg TRANSDERMA DAILY PRN PRN Reason: smoking cessation Nicotine Polacrilex (Nicotine Polacrilex 2 Mg Gum) 4 mg BUCCAL Q2H PRN PRN Reason: Nicotine Cravings Olanzapine (Olanzapine 5 Mg Tablet) 5 mg PO TID PRN PRN Reason: moderate agitation Olanzapine (Olanzapine Odt 10 Mg Tab.Rapdis) 10 mg TRANSLINGU BID PRN PRN Reason: mod-severe agitation Risperidone (Risperidone 2 Mg Tablet) 2 mg PO BID JESSICA Last Admin: 12/07/23 08:45 Dose: Not Given Trazodone HCl (Trazodone Hcl 50 Mg Tablet) 50 mg PO BEDTIME MRX1 PRN PRN Reason: Insomnia Allergies Allergies Allergy/AdvReac Type Severity Reaction Status Date / Time strawberry Allergy Mild Itching Verified 08/08/23 15:47 cefazolin Allergy Unknown Itching Verified 08/08/23 15:47 sulfamethoxazole Allergy Unknown Itching Verified 08/08/23 15:47 [From Bactrim] trimethoprim [From Bactrim] Allergy Unknown Itching Verified 08/08/23 15:47 lorazepam [From Ativan] AdvReac Agitated Verified 08/08/23 15:47 lithium AdvReac Unknown other Uncoded 11/29/23 21:03 Assessment & Plan Assessment & Plan (1) Schizoaffective disorder, bipolar type: Status: Acute Code(s): F25.0 - Schizoaffective disorder, bipolar type (2) Hyperbilirubinemia: Status: Acute Code(s): E80.6 - Other disorders of bilirubin metabolism (3) ADHD: Status: Chronic Code(s): F90.9 - Attention-deficit hyperactivity disorder, unspecified type Plan HPI: Patient is a 27-year-old male with history of schizo affective disorder bipolar type, who presents for increasing aggressive and psychotic behaviors in the community. Patient is sleeping on approach but wakes up. He is friendly and cooperative. He denies any psychiatric symptoms at all. Denies any depression, SI, HI, anxiety, auditory hallucinations or delusional thinking. He says he has no idea why he was sent to the hospital. He says he keeps asking his parents why but they will not tell him other than to say they are concerned. He says they want me on Risperdal but will not tell me why... He gives permission to call both of his parents and gives technical document writer their phone number. He denies that he pushed his father out of a chair. He is adamant that he does not need any psychiatric medications and that they have never helped him anyway. Surface Grinder reviewed options and also positive effect they have had at past admissions however he politely declines again saying they never helped with anything anyway. Patient denies any substance abuse or alcohol abuse. He says he quit cannabis more than a year ago. Patient did acknowledge that he does have anxiety about fitting in with other people and so finds it hard to get a job or keep a job. Surface Grinder discussed medication that could help with his however he continued to refuse. He said that he would like to try Xanax, that he heard Xanax could work however he refuses to try clonazepam or other longer acting benzo. -At sending facility, patient threatened to punch . -mother reported to ED staff that patient has been aggressive, screaming at family, pushed his father out of chair who found the ground, sleeping up to or more than 16 hours a day, not attending to any ADLs, seemingly responding to internal stimuli. Collateral: Surface Grinder talked with patient's mother Patsy who is exceedingly worried about him. She says he sleeps 16 hours a day, will sometimes go 2 days without eating and refuses all offers for psychiatric treatment of any kind. Says that he has been increasingly agitated lately and will aggressively approach family, unprovoked yelling about something; mother reports that family locks their bedroom door so he can not barge in and that her 13-year-old daughter is terrified of him. Over the past week and a half he came in screaming at his father stop texting my Jey... And smacked a cup out of his father's hand. He barged into his brother's room who was playing online video game with friends and aggressively yelled stop fucking talking about me... He also yelled out of no where for Brandon to get out of the house which surprised family since he has not spoken to this person in 5 years. The other day he got angry about some unknown thing, barged into his father's thus and pushed the chair father sitting in who then trouble to the floor. Patient's family was going to call crisis/911 and he started swearing at them to not call Hospital course: 11/30 Patient's mother communicated to social worker palliative care that patient is not allowed back at the house unless he is willing to take medication. Patient remains in bed sleeping most of the day. Difficult to arouse Surface Grinder communicated this to patient who continued to refuse. Surface Grinder discussed how he would feel about going to a intermediate and patient said he does not think his parents will make him do that. Surface Grinder press the issue and patient said what would you do if you felt like you didn't need medication and they were trying to make you take it... patient did not wait for an answer and just said if that is what they require he will just not go back home. He will over and refused to continue talking -Patient refused abdominal ultrasound despite several attempts 12/01 patient not willing to engage -talked again with mother who is his healthcare proxy; she reported that the other day Van yelled out loud that he was going to kill himself; denies any history of self-harm 12/02: Continue current regimen and plan 12/05 continues to refuse medications, internally preoccupied, guarded. 12/06 continues to present internally preoccupied, not showing any signs of being able to care for himself, not forthcoming with extend of psychosis and paranoid delusions, suspect due to fear of having to stay longer on the unit. not engaging in any meaningful way with treatment team. very poor hygiene, refuses to shower, malodorous. continues to decline medications, VS. Plan: CV Q 15 minute checks Restarted Risperdal 2 mg b.i.d.; patient has been refusing Medication history: Risperdal, Wellbutrin #Hyperbilirubinemia on admission- mild, no jaundice -has history of elevated tbili, but at [facility] was 2.6, which is higher than previous. Denies substance use -Check U/S RUQ. If no acute findings, outpt follow up with GI Reason for continued inpatient stay Substantial Risk for: inability to function Time Spent With Patient Time: Total time managing care of this patient today ____ minutes.
[2023-12-08 08:00] VITALS: RESP 14
--- NOTE | 2023-12-08 10:03 | HO.PSYCHPN ---
Subjective Subjective Date of Service: 12/08/23 Reason For Visit: Schizophrenia Interim History: Met with patient; discussed with team Patient asleep in his room. Difficult to arouse. Patient angry at being woken up to talk (credit underwriter made loud bang to wake him up since nothing else has worked). He said that he is not even supposed to be in the hospital... Metallurgical Engineer informed patient of petition for involuntary commitment. Regarding medications, he continues to say he just wants Adderall or Zoloft,, but would not accept credit underwriter's explanation for why these are not appropriate at this time. Earlier nursing staff wanted to have patient moved out of single occupancy into a double occupancy room for a need that arose on the unit. He refused and said that he would hurt a roommate if he had one. Metallurgical Engineer inquired about this to which patient said he can not be moved and said I am too violent and that he might hurt them... Mental Status Exam Mental Status Exam Narrative: Pt is alert and oriented; behavior is isolative, spending almost all time and room, sleeping; difficult to arouse; patient is not in distress; dressed in casual attire, disheveled and malodorous; mood is described as irritable and affect constricted; eye contact avoidant; Speech is normal rate, volume and prosody and not pressured; psychomotor retardation present; thought process is goal directed but marred by thought blocking; Thought content is on bizarre ideas and on not knowing why parents want him hospitalized; otherwise pertinent to relevant topics; denies any SI/HI. Patient denies AVH however clearly internally preoccupied and responding to internal stimuli. Patients insight and judgment impaired Diagnostics Vital Signs (24Hr): Vital Signs - 24 hr 12/08/23 08:00 Respiratory Rate 14 BMI result Body Mass Index 27.2 Medications Medications Current Medications Acetaminophen (Acetaminophen 325 Mg Tablet) 650 mg PO Q6H PRN PRN Reason: Headache/Pain Mild Scale (1-3) Al Hydroxide/Mg Hydroxide (Magnesium Hydrox/Alum Hydrox 30 Ml Oral.Susp) 30 ml PO Q6H PRN PRN Reason: Heartburn/Nausea Hydroxyzine HCl (Hydroxyzine Hcl 50 Mg Tablet) 50 mg PO Q6H PRN PRN Reason: Anxiety Magnesium Hydroxide (Milk Of Magnesia 30 Ml Oral.Susp) 30 ml PO DAILY PRN PRN Reason: Constipation Nicotine (Nicotine 21 Mg Patch.Td24) 21 mg TRANSDERMA DAILY PRN PRN Reason: smoking cessation Nicotine Polacrilex (Nicotine Polacrilex 2 Mg Gum) 4 mg BUCCAL Q2H PRN PRN Reason: Nicotine Cravings Olanzapine (Olanzapine 5 Mg Tablet) 5 mg PO TID PRN PRN Reason: moderate agitation Olanzapine (Olanzapine Odt 10 Mg Tab.Rapdis) 10 mg TRANSLINGU BID PRN PRN Reason: mod-severe agitation Risperidone (Risperidone 2 Mg Tablet) 2 mg PO BID JESSICA Last Admin: 12/08/23 09:32 Dose: Not Given Trazodone HCl (Trazodone Hcl 50 Mg Tablet) 50 mg PO BEDTIME MRX1 PRN PRN Reason: Insomnia Allergies Allergies Allergy/AdvReac Type Severity Reaction Status Date / Time strawberry Allergy Mild Itching Verified 08/08/23 15:47 cefazolin Allergy Unknown Itching Verified 08/08/23 15:47 sulfamethoxazole Allergy Unknown Itching Verified 08/08/23 15:47 [From Bactrim] trimethoprim [From Bactrim] Allergy Unknown Itching Verified 08/08/23 15:47 lorazepam [From Ativan] AdvReac Agitated Verified 08/08/23 15:47 lithium AdvReac Unknown other Uncoded 11/29/23 21:03 Assessment & Plan Assessment & Plan (1) Schizoaffective disorder, bipolar type: Status: Acute Code(s): F25.0 - Schizoaffective disorder, bipolar type (2) Hyperbilirubinemia: Status: Acute Code(s): E80.6 - Other disorders of bilirubin metabolism (3) ADHD: Status: Chronic Code(s): F90.9 - Attention-deficit hyperactivity disorder, unspecified type Plan HPI: Patient is a 27-year-old male with history of schizo affective disorder bipolar type, who presents for increasing aggressive and psychotic behaviors in the community. Patient is sleeping on approach but wakes up. He is friendly and cooperative. He denies any psychiatric symptoms at all. Denies any depression, SI, HI, anxiety, auditory hallucinations or delusional thinking. He says he has no idea why he was sent to the hospital. He says he keeps asking his parents why but they will not tell him other than to say they are concerned. He says they want me on Risperdal but will not tell me why... He gives permission to call both of his parents and gives credit underwriter their phone number. He denies that he pushed his father out of a chair. He is adamant that he does not need any psychiatric medications and that they have never helped him anyway. Metallurgical Engineer reviewed options and also positive effect they have had at past admissions however he politely declines again saying they never helped with anything anyway. Patient denies any substance abuse or alcohol abuse. He says he quit cannabis more than a year ago. Patient did acknowledge that he does have anxiety about fitting in with other people and so finds it hard to get a job or keep a job. Metallurgical Engineer discussed medication that could help with his however he continued to refuse. He said that he would like to try Xanax, that he heard Xanax could work however he refuses to try clonazepam or other longer acting benzo. -At sending facility, patient threatened to punch DrCami. -mother reported to ED staff that patient has been aggressive, screaming at family, pushed his father out of chair who found the ground, sleeping up to or more than 16 hours a day, not attending to any ADLs, seemingly responding to internal stimuli. Collateral: Metallurgical Engineer talked with patient's mother Patsy who is exceedingly worried about him. She says he sleeps 16 hours a day, will sometimes go 2 days without eating and refuses all offers for psychiatric treatment of any kind. Says that he has been increasingly agitated lately and will aggressively approach family, unprovoked yelling about something; mother reports that family locks their bedroom door so he can not barge in and that her 13-year-old daughter is terrified of him. Over the past week and a half he came in screaming at his father stop texting my Jey... And smacked a cup out of his father's hand. He barged into his brother's room who was playing online video game with friends and aggressively yelled stop fucking talking about me... He also yelled out of no where for Brandon to get out of the house which surprised family since he has not spoken to this person in 5 years. The other day he got angry about some unknown thing, barged into his father's thus and pushed the chair father sitting in who then trouble to the floor. Patient's family was going to call and he started swearing at them to not call Hospital course: 11/30 Patient's mother communicated to social organization professor that patient is not allowed back at the house unless he is willing to take medication. Patient remains in bed sleeping most of the day. Difficult to arouse Metallurgical Engineer communicated this to patient who continued to refuse. Metallurgical Engineer discussed how he would feel about going to a detention and patient said he does not think his parents will make him do that. Metallurgical Engineer press the issue and patient said what would you do if you felt like you didn't need medication and they were trying to make you take it... patient did not wait for an answer and just said if that is what they require he will just not go back home. He will over and refused to continue talking -Patient refused abdominal ultrasound despite several attempts 12/01 patient not willing to engage -talked again with mother who is his healthcare proxy; she reported that the other day Van yelled out loud that he was going to kill himself; denies any history of self-harm 12/02: Continue current regimen and plan 12/05 continues to refuse medications, internally preoccupied, guarded. 12/06 continues to present internally preoccupied, not showing any signs of being able to care for himself, not forthcoming with extend of psychosis and paranoid delusions, suspect due to fear of having to stay longer on the unit. not engaging in any meaningful way with treatment team. very poor hygiene, refuses to shower, malodorous. continues to decline medications, VS. 12/07 Patient asleep in his room. Difficult to arouse. Patient angry at being woken up to talk (credit underwriter made loud bang to wake him up since nothing else has worked). He said that he is not even supposed to be in the hospital... Metallurgical Engineer informed patient of petition for involuntary commitment. Regarding medications, he continues to say he just wants Adderall or Zoloft,, but would not accept credit underwriter's explanation for why these are not appropriate at this time. Earlier nursing staff wanted to have patient moved out of single occupancy into a double occupancy room for a need that arose on the unit. He refused and said that he would hurt a roommate if he had one. Metallurgical Engineer inquired about this to which patient said he can not be moved and said I am too violent and that he might hurt them... -will invoke healthcare proxy: Impaired insight and judgment on unable to make medical decisions for himself -petition the court for involuntary commitment. Patient is delusional, aggressive, threatening, family and 13-year-old sister did not feel safe in their house, locking the bedroom doors, say he can not return; patient not caring for himself, not attending to ADLs, eating and drinking very little... No insight into psychiatric illness or need for medication Plan: [address] Involuntary commitment and substituted judgment Invoke healthcare proxy patient is delusional, without insight and poor judgment and does not understand his illness and need for treatment Q 15 minute checks Continue Risperdal 2 mg b.i.d.; patient has been refusing Medication history: Risperdal, Wellbutrin #Hyperbilirubinemia on admission- mild, no jaundice -has history of elevated tbili, but at [facility] was 2.6, which is higher than previous. Denies substance use -Check U/S RUQ. If no acute findings, outpt follow up with GI Patient educated on: diagnosis and medication risk/benefits Informed Consent: does not understand Reason for continued inpatient stay Substantial Risk for: inability to function Time Spent With Patient Time: Total time managing care of this patient today ____ minutes.
[2023-12-08] MEDS: hydrOXYzine HCL 50 MG TABLET PO (17:51)
[2023-12-08] MEDS: traZODone HCL 50 MG TABLET PO (23:29)
[2023-12-09] MEDS: OLANZapine 5 MG TABLET PO (11:19)
[2023-12-09 11:26] VITALS: BP 126/78; PULSE 144; RESP 16; TEMP 36.9; O2SAT 99
[2023-12-09] MEDS: hydrOXYzine HCL 25 MG TABLET 75 MG PO (11:27)
[2023-12-09 12:23] VITALS: PULSE 108
--- NOTE | 2023-12-09 16:08 | P.PNPSI_ITS ---
Subjective Subjective Date of Service: 12/09/23 Reason For Visit: Schizophrenia Interim History: Met with patient; discussed with team Patient in the hallway on approach. Says olga politely; says he is waiting for some hydroxyzine medication for anxiety. Says he would like Adderall or Zoloft but the doctor has to put the order in. Supervisor Quality Control offered to increase hydroxyzine to which patient appreciated. Mental Status Exam Mental Status Exam Narrative: Pt is alert and oriented; behavior is isolative, spending almost all time and room, sleeping; difficult to arouse; patient is not in distress; dressed in casual attire, disheveled and malodorous; mood is described as irritable and affect constricted; eye contact avoidant; Speech is normal rate, volume and prosody and not pressured; psychomotor retardation present; thought process is goal directed but marred by thought blocking; Thought content is on bizarre ideas and on not knowing why parents want him hospitalized; otherwise pertinent to relevant topics; denies any SI/HI. Patient denies AVH however clearly internally preoccupied and responding to internal stimuli. Patients insight and judgment impaired Diagnostics Vital Signs (24Hr): Vital Signs - 24 hr 12/09/23 11:26 12/09/23 12:23 Temperature 98.5 F Pulse Rate 144 H 108 H Respiratory Rate 16 Blood Pressure 126/78 Pulse Oximetry 99 Oxygen Delivery Method Room Air BMI result Body Mass Index 27.2 Medications Medications Current Medications Acetaminophen (Acetaminophen 325 Mg Tablet) 650 mg PO Q6H PRN PRN Reason: Headache/Pain Mild Scale (1-3) Al Hydroxide/Mg Hydroxide (Magnesium Hydrox/Alum Hydrox 30 Ml Oral.Susp) 30 ml PO Q6H PRN PRN Reason: Heartburn/Nausea Hydroxyzine HCl (Hydroxyzine Hcl 25 Mg Tablet) 75 mg PO Q6H PRN PRN Reason: Anxiety Last Admin: 12/09/23 11:27 Dose: 75 mg Magnesium Hydroxide (Milk Of Magnesia 30 Ml Oral.Susp) 30 ml PO DAILY PRN PRN Reason: Constipation Nicotine (Nicotine 21 Mg Patch.Td24) 21 mg TRANSDERMA DAILY PRN PRN Reason: smoking cessation Nicotine Polacrilex (Nicotine Polacrilex 2 Mg Gum) 4 mg BUCCAL Q2H PRN PRN Reason: Nicotine Cravings Olanzapine (Olanzapine 5 Mg Tablet) 5 mg PO TID PRN PRN Reason: moderate agitation Last Admin: 12/09/23 11:19 Dose: 5 mg Olanzapine (Olanzapine Odt 10 Mg Tab.Rapdis) 10 mg TRANSLINGU BID PRN PRN Reason: mod-severe agitation Risperidone (Risperidone 2 Mg Tablet) 2 mg PO BID JESSICA Last Admin: 12/09/23 09:57 Dose: Not Given Trazodone HCl (Trazodone Hcl 50 Mg Tablet) 50 mg PO BEDTIME MRX1 PRN PRN Reason: Insomnia Last Admin: 12/08/23 23:29 Dose: 50 mg Allergies Allergies Allergy/AdvReac Type Severity Reaction Status Date / Time strawberry Allergy Mild Itching Verified 08/08/23 15:47 cefazolin Allergy Unknown Itching Verified 08/08/23 15:47 sulfamethoxazole Allergy Unknown Itching Verified 08/08/23 15:47 [From Bactrim] trimethoprim [From Bactrim] Allergy Unknown Itching Verified 08/08/23 15:47 lorazepam [From Ativan] AdvReac Agitated Verified 08/08/23 15:47 lithium AdvReac Unknown other Uncoded 11/29/23 21:03 Assessment & Plan Assessment & Plan (1) Schizoaffective disorder, bipolar type: Status: Acute Code(s): F25.0 - Schizoaffective disorder, bipolar type (2) Hyperbilirubinemia: Status: Acute Code(s): E80.6 - Other disorders of bilirubin metabolism (3) ADHD: Status: Chronic Code(s): F90.9 - Attention-deficit hyperactivity disorder, unspecified type Plan HPI: Patient is a 27-year-old male with history of schizo affective disorder bipolar type, who presents for increasing aggressive and psychotic behaviors in the community. Patient is sleeping on approach but wakes up. He is friendly and cooperative. He denies any psychiatric symptoms at all. Denies any depression, SI, HI, anxiety, auditory hallucinations or delusional thinking. He says he has no idea why he was sent to the hospital. He says he keeps asking his parents why but they will not tell him other than to say they are concerned. He says they want me on Risperdal but will not tell me why... He gives permission to call both of his parents and gives conventional underwriter their phone number. He denies that he pushed his father out of a chair. He is adamant that he does not need any psychiatric medications and that they have never helped him anyway. Supervisor Quality Control reviewed options and also positive effect they have had at past admissions however he politely declines again saying they never helped with anything anyway. Patient denies any substance abuse or alcohol abuse. He says he quit cannabis more than a year ago. Patient did acknowledge that he does have anxiety about fitting in with other people and so finds it hard to get a job or keep a job. Supervisor Quality Control discussed medication that could help with his however he continued to refuse. He said that he would like to try Xanax, that he heard Xanax could work however he refuses to try clonazepam or other longer acting benzo. -At sending facility, patient threatened to punch . -mother reported to ED staff that patient has been aggressive, screaming at family, pushed his father out of chair who found the ground, sleeping up to or more than 16 hours a day, not attending to any ADLs, seemingly responding to internal stimuli. Collateral: Supervisor Quality Control talked with patient's mother Patsy who is exceedingly worried about him. She says he sleeps 16 hours a day, will sometimes go 2 days without eating and refuses all offers for psychiatric treatment of any kind. Says that he has been increasingly agitated lately and will aggressively approach family, unprovoked yelling about something; mother reports that family locks their bedroom door so he can not barge in and that her 13-year-old daughter is terrified of him. Over the past week and a half he came in screaming at his father stop texting my Jey... And smacked a cup out of his father's hand. He barged into his brother's room who was playing online video game with friends and aggressively yelled stop fucking talking about me... He also yelled out of no where for Brandon to get out of the house which surprised family since he has not spoken to this person in 5 years. The other day he got angry about some unknown thing, barged into his father's thus and pushed the chair father sitting in who then trouble to the floor. Patient's family was going to call crisis/911 and he started swearing at them to not call Hospital course: 11/30 Patient's mother communicated to delinquency prevention social worker that patient is not allowed back at the house unless he is willing to take medication. Patient remains in bed sleeping most of the day. Difficult to arouse Supervisor Quality Control communicated this to patient who continued to refuse. Supervisor Quality Control discussed how he would feel about going to a assisted and patient said he does not think his parents will make him do that. Supervisor Quality Control press the issue and patient said what would you do if you felt like you didn't need medication and they were trying to make you take it... patient did not wait for an answer and just said if that is what they require he will just not go back home. He will over and refused to continue talking -Patient refused abdominal ultrasound despite several attempts 12/01 patient not willing to engage -talked again with mother who is his healthcare proxy; she reported that the other day Van yelled out loud that he was going to kill himself; denies any history of self-harm 12/02: Continue current regimen and plan 12/05 continues to refuse medications, internally preoccupied, guarded. 12/06 continues to present internally preoccupied, not showing any signs of being able to care for himself, not forthcoming with extend of psychosis and paranoid delusions, suspect due to fear of having to stay longer on the unit. not engaging in any meaningful way with treatment team. very poor hygiene, refuses to shower, malodorous. continues to decline medications, VS. 12/07 Patient asleep in his room. Difficult to arouse. Patient angry at being woken up to talk (conventional underwriter made loud bang to wake him up since nothing else has worked). He said that he is not even supposed to be in the hospital... Supervisor Quality Control informed patient of petition for involuntary commitment. Regarding medications, he continues to say he just wants Adderall or Zoloft,, but would not accept conventional underwriter's explanation for why these are not appropriate at this time. Earlier nursing staff wanted to have patient moved out of single occupancy into a double occupancy room for a need that arose on the unit. He refused and said that he would hurt a roommate if he had one. Supervisor Quality Control inquired about this to which patient said he can not be moved and said I am too violent and that he might hurt them... -will invoke healthcare proxy: Impaired insight and judgment on unable to make medical decisions for himself -petition the court for involuntary commitment. Patient is delusional, aggressive, threatening, family and 13-year-old sister did not feel safe in their house, locking the bedroom doors, say he can not return; patient not caring for himself, not attending to ADLs, eating and drinking very little... No insight into psychiatric illness or need for medication 12/08 patient out of his room asking for p.r.n. hydroxyzine; conventional underwriter agreed to increase. Did not discuss treatment as this was one of the few non- confrontational interactions conventional underwriter has had with patient and conventional underwriter felt it best to keep the interaction positive Plan: [address] Involuntary commitment and substituted judgment Invoke healthcare proxy patient is delusional, without insight and poor judgment and does not understand his illness and need for treatment Q 15 minute checks Continue Risperdal 2 mg b.i.d.; patient has been refusing Medication history: Risperdal, Wellbutrin #Hyperbilirubinemia on admission- mild, no jaundice -has history of elevated tbili, but at [facility] was 2.6, which is higher than previous. Denies substance use -Check U/S RUQ. If no acute findings, outpt follow up with GI Patient educated on: diagnosis Informed Consent: does not understand Reason for continued inpatient stay Substantial Risk for: inability to function Time Spent With Patient Time: Total time managing care of this patient today ____ minutes.
[2023-12-10 08:02] VITALS: BP 152/86; PULSE 87; RESP 16; TEMP 36.3; O2SAT 96
--- NOTE | 2023-12-10 10:02 | P.PNPSI_ITS ---
Subjective Subjective Date of Service: 12/10/23 Reason For Visit: Schizophrenia Interim History: Met with patient; discussed with team Today patient is sitting on his bed, writing in a notebook; aligner typewriter glanced and note book filled with strange symbols. Patient clearly internally preoccupied, laughing out loud to himself. On approach however patient is polite. Says again that he wants Zoloft for depression; he said that in the past he tried Wellbutrin alone and he felt he had too much energy all day. Material Requirements Planning Manager discussed how Vraylar can help with depression and specifically bipolar depression and patient said that he would take it. When nursing brought it to him he refused it saying he wanted Wellbutrin; however aligner typewriter re-approached patient who said he did not like that it was only Vraylar 1.5 mg which was too low a dose; instead he agreed to take Vraylar 3 mg which he did. Mental Status Exam Mental Status Exam Narrative: Pt is alert and oriented; behavior is isolative, spending almost all time and room; patient a little more willing to engage however; and while often sleeping however a little less the past 2 days; patient is not in distress; dressed in casual attire, disheveled and malodorous; mood is described as a little more calm though he remains intermittently irritable; affect labile, ranging from blank stare to laughing how seriously; eye contact a little improved; Speech is normal rate, volume and prosody and not pressured; intermittently both psychomotor agitation and retardation present; thought process is goal directed but marred by thought blocking; Thought content is on on medication; also on bizarre ideas and on not knowing why parents want him hospitalized; otherwise for a time, able to remain pertinent to relevant topics; denies any SI/HI. Patient denies AVH however clearly internally preoccupied and responding to internal stimuli. Patients insight and judgment impaired Diagnostics Vital Signs (24Hr): Vital Signs - 24 hr 12/09/23 11:26 12/09/23 12:23 12/10/23 08:02 Temperature 98.5 F 97.3 F Pulse Rate 144 H 108 H 87 Respiratory Rate 16 16 Blood Pressure 126/78 152/86 H Pulse Oximetry 99 96 Oxygen Delivery Method Room Air Room Air BMI result Body Mass Index 27.2 Medications Medications Current Medications Acetaminophen (Acetaminophen 325 Mg Tablet) 650 mg PO Q6H PRN PRN Reason: Headache/Pain Mild Scale (1-3) Al Hydroxide/Mg Hydroxide (Magnesium Hydrox/Alum Hydrox 30 Ml Oral.Susp) 30 ml PO Q6H PRN PRN Reason: Heartburn/Nausea Hydroxyzine HCl (Hydroxyzine Hcl 25 Mg Tablet) 75 mg PO Q6H PRN PRN Reason: Anxiety Last Admin: 12/09/23 11:27 Dose: 75 mg Magnesium Hydroxide (Milk Of Magnesia 30 Ml Oral.Susp) 30 ml PO DAILY PRN PRN Reason: Constipation Nicotine (Nicotine 21 Mg Patch.Td24) 21 mg TRANSDERMA DAILY PRN PRN Reason: smoking cessation Nicotine Polacrilex (Nicotine Polacrilex 2 Mg Gum) 4 mg BUCCAL Q2H PRN PRN Reason: Nicotine Cravings Olanzapine (Olanzapine 5 Mg Tablet) 5 mg PO TID PRN PRN Reason: moderate agitation Last Admin: 12/09/23 11:19 Dose: 5 mg Olanzapine (Olanzapine Odt 10 Mg Tab.Rapdis) 10 mg TRANSLINGU BID PRN PRN Reason: mod-severe agitation Risperidone (Risperidone 2 Mg Tablet) 2 mg PO BID JESSICA Last Admin: 12/10/23 08:30 Dose: Not Given Trazodone HCl (Trazodone Hcl 50 Mg Tablet) 50 mg PO BEDTIME MRX1 PRN PRN Reason: Insomnia Last Admin: 12/08/23 23:29 Dose: 50 mg Allergies Allergies Allergy/AdvReac Type Severity Reaction Status Date / Time strawberry Allergy Mild Itching Verified 08/08/23 15:47 cefazolin Allergy Unknown Itching Verified 08/08/23 15:47 sulfamethoxazole Allergy Unknown Itching Verified 08/08/23 15:47 [From Bactrim] trimethoprim [From Bactrim] Allergy Unknown Itching Verified 08/08/23 15:47 lorazepam [From Ativan] AdvReac Agitated Verified 08/08/23 15:47 lithium AdvReac Unknown other Uncoded 11/29/23 21:03 Assessment & Plan Assessment & Plan (1) Schizoaffective disorder, bipolar type: Status: Acute Code(s): F25.0 - Schizoaffective disorder, bipolar type (2) Hyperbilirubinemia: Status: Acute Code(s): E80.6 - Other disorders of bilirubin metabolism (3) ADHD: Status: Chronic Code(s): F90.9 - Attention-deficit hyperactivity disorder, unspecified type Plan HPI: Patient is a 27-year-old male with history of schizo affective disorder bipolar type, who presents for increasing aggressive and psychotic behaviors in the community. Patient is sleeping on approach but wakes up. He is friendly and cooperative. He denies any psychiatric symptoms at all. Denies any depression, SI, HI, anxiety, auditory hallucinations or delusional thinking. He says he has no idea why he was sent to the hospital. He says he keeps asking his parents why but they will not tell him other than to say they are concerned. He says they want me on Risperdal but will not tell me why... He gives permission to call both of his parents and gives aligner typewriter their phone number. He denies that he pushed his father out of a chair. He is adamant that he does not need any psychiatric medications and that they have never helped him anyway. Material Requirements Planning Manager reviewed options and also positive effect they have had at past admissions however he politely declines again saying they never helped with anything anyway. Patient denies any substance abuse or alcohol abuse. He says he quit cannabis more than a year ago. Patient did acknowledge that he does have anxiety about fitting in with other people and so finds it hard to get a job or keep a job. Material Requirements Planning Manager discussed medication that could help with his however he continued to refuse. He said that he would like to try Xanax, that he heard Xanax could work however he refuses to try clonazepam or other longer acting benzo. -At sending facility, patient threatened to punch . -mother reported to ED staff that patient has been aggressive, screaming at family, pushed his father out of chair who found the ground, sleeping up to or more than 16 hours a day, not attending to any ADLs, seemingly responding to internal stimuli. Collateral: Material Requirements Planning Manager talked with patient's mother Patsy who is exceedingly worried about him. She says he sleeps 16 hours a day, will sometimes go 2 days without eating and refuses all offers for psychiatric treatment of any kind. Says that he has been increasingly agitated lately and will aggressively approach family, unprovoked yelling about something; mother reports that family locks their bedroom door so he can not barge in and that her 13-year-old daughter is terrified of him. Over the past week and a half he came in screaming at his father stop texting my Jey... And smacked a cup out of his father's hand. He barged into his brother's room who was playing online video game with friends and aggressively yelled stop fucking talking about me... He also yelled out of no where for Brandon to get out of the house which surprised family since he has not spoken to this person in 5 years. The other day he got angry about some unknown thing, barged into his father's thus and pushed the chair father sitting in who then t rouble to the floor. Patient's family was going to call crisis/911 and he started swearing at them to not call Hospital course: 11/30 Patient's mother communicated to social services director that patient is not allowed back at the house unless he is willing to take medication. Patient remains in bed sleeping most of the day. Difficult to arouse Material Requirements Planning Manager communicated this to patient who continued to refuse. Material Requirements Planning Manager discussed how he would feel about going to a penitentiary and patient said he does not think his parents will make him do that. Material Requirements Planning Manager press the issue and patient said what would you do if you felt like you didn't need medication and they were trying to make you take it... patient did not wait for an answer and just said if that is what they require he will just not go back home. He will over and refused to continue talking -Patient refused abdominal ultrasound despite several attempts 12/01 patient not willing to engage -talked again with mother who is his healthcare proxy; she reported that the other day Van yelled out loud that he was going to kill himself; denies any history of self-harm 12/02: Continue current regimen and plan 12/05 continues to refuse medications, internally preoccupied, guarded. 12/06 continues to present internally preoccupied, not showing any signs of being able to care for himself, not forthcoming with extend of psychosis and paranoid delusions, suspect due to fear of having to stay longer on the unit. not engaging in any meaningful way with treatment team. very poor hygiene, refuses to shower, malodorous. continues to decline medications, VS. 12/07 Patient asleep in his room. Difficult to arouse. Patient angry at being woken up to talk (aligner typewriter made loud bang to wake him up since nothing else has worked). He said that he is not even supposed to be in the hospital... Material Requirements Planning Manager informed patient of petition for involuntary commitment. Regarding medications, he continues to say he just wants Adderall or Zoloft,, but would not accept aligner typewriter's explanation for why these are not appropriate at this time. Earlier nursing staff wanted to have patient moved out of single occupancy into a double occupancy room for a need that arose on the unit. He refused and said that he would hurt a roommate if he had one. Material Requirements Planning Manager inquired about this to which patient said he can not be moved and said I am too violent and that he might hurt them... -will invoke healthcare proxy: Impaired insight and judgment on unable to make medical decisions for himself -petition the court for involuntary commitment. Patient is delusional, aggressive, threatening, family and 13-year-old sister did not feel safe in their house, locking the bedroom doors, say he can not return; patient not caring for himself, not attending to ADLs, eating and drinking very little... No insight into psychiatric illness or need for medication 12/08 patient out of his room asking for p.r.n. hydroxyzine; aligner typewriter agreed to increase. Did not discuss treatment as this was one of the few non- confrontational interactions aligner typewriter has had with patient and aligner typewriter felt it best to keep the interaction positive 12/09 Today patient is sitting on his bed, writing in a notebook; aligner typewriter glanced and note book filled with strange symbols. Patient clearly internally preoccupied, laughing out loud to himself. On approach however patient is polite. Says again that he wants Zoloft for depression; he said that in the past he tried Wellbutrin alone and he felt he had too much energy all day. Material Requirements Planning Manager discussed how Vraylar can help with depression and specifically bipolar depression and patient said that he would take it. When nursing brought it to him he refused it saying he wanted Wellbutrin; however aligner typewriter re-approached patient who said he did not like that it was only Vraylar 1.5 mg which was too low a dose; instead he agreed to take Vraylar 3 mg which he did. -Vraylar chosen since it can treat psychotic symptoms, bipolar kentrell and bipolar depression; has a more favorable side effect profile and much less risk of weight gain which has been problematic for patient in the past Plan: Section 7: Petition court for Involuntary commitment and substituted judgment Invoke healthcare proxy patient is delusional, without insight and poor judgment and does not understand his illness and need for treatment Q 15 minute checks START Vraylar 3mg daily DC Risperdal since pt took Vraylar today and says he's willing to continue taking it (has refused Risperdal throughout) Medication history: Risperdal, Wellbutrin #Hyperbilirubinemia on admission- mild, no jaundice -has history of elevated tbili, but at [facility] was 2.6, which is higher than previous. Denies substance use -Check U/S RUQ. If no acute findings, outpt follow up with GI Patient educated on: diagnosis and medication risk/benefits Informed Consent: understands, does not understand and further education needed Reason for continued inpatient stay Substantial Risk for: inability to function Time Spent With Patient Time: Total time managing care of this patient today ____ minutes.
[2023-12-10] MEDS: Cariprazine HCl 3 MG CAPSULE PO (12:49)
[2023-12-10] MEDS: OLANZapine ODT 10 MG TAB.RAPDIS TRANSLINGU (16:27)
--- NOTE | 2023-12-10 18:53 | PC.NURSE ---
Van threw dinner tray in his room, strong enough to break the plate and durable plastic encasement. Duralumin Metalworker approached Van to offer prn medication & discuss what happened. Van states that he threw the tray because the doctor won't order the medications he wants. The actual psychiatrist won't order me zoloft & adderall. He has a deal with my parents. All the famous people are taking zoloft so he won't order it for me. Pt was offered zyprexa and hydroxyzine to help him in the moment. Pt replied You people are of no substance, this conversation is over. Pt then pulled the covers over his head.
[2023-12-11 08:46] VITALS: BP 144/87; PULSE 100; RESP 16; TEMP 36.4; O2SAT 97
[2023-12-11] MEDS: Cariprazine HCl 3 MG CAPSULE PO (09:18)
[2023-12-11] MEDS: hydrOXYzine HCL 25 MG TABLET 75 MG PO (11:59)
[2023-12-11 20:00] VITALS: BP 130/61; PULSE 82; RESP 16; TEMP 36.8; O2SAT 98
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
[2023-12-12 08:00] VITALS: BP 131/82; PULSE 74; RESP 16; TEMP 36.4; O2SAT 100
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
[2023-12-12] MEDS: Cariprazine HCl 3 MG CAPSULE PO (18:53)
--- NOTE | 2023-12-12 19:05 | PC.NURSE ---
At approximately 18:50, the patient approached this flex o writer operator to request to take his Vraylar which he had refused this morning. Provider was contacted by this flex o writer operator who authorized this flex o writer operator to administer the refused dose now. Dose administered.
[2023-12-12] MEDS: traZODone HCL 50 MG TABLET PO (20:49)
[2023-12-12] MEDS: hydrOXYzine HCL 25 MG TABLET 75 MG PO (20:49)
[2023-12-13 09:30] VITALS: RESP 14
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
[2023-12-13] MEDS: OLANZapine ODT 10 MG TAB.RAPDIS TRANSLINGU (19:20)
[2023-12-13] MEDS: traZODone HCL 50 MG TABLET PO ×2 (20:45→21:46)
[2023-12-13] MEDS: Nicotine Polacrilex 2 MG GUM 4 MG BUCCAL (21:32)
[2023-12-14 08:00] VITALS: BP 146/69; PULSE 110; TEMP 36.3; O2SAT 96
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
[2023-12-14] MEDS: traZODone HCL 50 MG TABLET PO ×2 (23:02→23:59)
[2023-12-14] MEDS: OLANZapine ODT 10 MG TAB.RAPDIS TRANSLINGU (23:59)
--- NOTE | 2023-12-15 02:20 | PC.NURSE ---
At approximately 0030, Van threw his meal tray against the wall. He offered no explanation for this.
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
[2023-12-15] MEDS: Cariprazine HCl 3 MG CAPSULE PO (13:57)
[2023-12-15] MEDS: OLANZapine ODT 10 MG TAB.RAPDIS TRANSLINGU (16:16)
[2023-12-15] MEDS: hydrOXYzine HCL 25 MG TABLET 75 MG PO ×2 (16:16→22:57)
[2023-12-15] MEDS: traZODone HCL 50 MG TABLET PO ×2 (22:58→23:37)
[2023-12-16 12:00] VITALS: RESP 16
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
[2023-12-16] MEDS: OLANZapine ODT 10 MG TAB.RAPDIS TRANSLINGU (15:29)
[2023-12-16] MEDS: hydrOXYzine HCL 25 MG TABLET 75 MG PO ×2 (15:30→20:53)
[2023-12-16] MEDS: Cariprazine HCl 3 MG CAPSULE PO (16:42)
[2023-12-16 20:26] VITALS: RESP 18
[2023-12-16] MEDS: traZODone HCL 50 MG TABLET PO ×2 (20:53→22:09)
[2023-12-17] MEDS: hydrOXYzine HCL 25 MG TABLET 75 MG PO ×3 (08:43→23:43)
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
[2023-12-17] MEDS: Cariprazine HCl 3 MG CAPSULE PO (12:59)
[2023-12-17] MEDS: OLANZapine ODT 10 MG TAB.RAPDIS TRANSLINGU (15:15)
[2023-12-17 20:00] VITALS: RESP 16
[2023-12-17] MEDS: traZODone HCL 50 MG TABLET PO (23:43)
[2023-12-18] MEDS: traZODone HCL 50 MG TABLET PO (00:54)
[2023-12-18] MEDS: Cariprazine HCl 3 MG CAPSULE PO (12:44)
[2023-12-18] MEDS: hydrOXYzine HCL 50 MG TABLET 100 MG PO ×2 (12:46→21:48)
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
[2023-12-18 20:25] VITALS: BP 120/77; PULSE 109; RESP 18; TEMP 35.9; O2SAT 97
[2023-12-18] MEDS: traZODone HCL 100 MG TABLET PO (21:48)
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
[2023-12-19] MEDS: hydrOXYzine HCL 50 MG TABLET 100 MG PO (12:03)
[2023-12-19] MEDS: Cariprazine HCl 3 MG CAPSULE PO (12:04)
[2023-12-19 19:48] VITALS: RESP 18
[2023-12-20] MEDS: hydrOXYzine HCL 50 MG TABLET 100 MG PO ×2 (04:08→11:14)
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
[2023-12-20] MEDS: Cariprazine HCl 3 MG CAPSULE 6 MG PO (12:36)
[2023-12-20 20:00] VITALS: BP 141/86; PULSE 96; RESP 16; TEMP 36.3; O2SAT 91
[2023-12-21 08:00] VITALS: RESP 18
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
[2023-12-21] MEDS: Cariprazine HCl 3 MG CAPSULE 6 MG PO (13:36)
[2023-12-21] MEDS: hydrOXYzine HCL 50 MG TABLET 100 MG PO (16:48)
[2023-12-21 19:42] VITALS: BP 129/80; PULSE 98; RESP 14; TEMP 36.3; O2SAT 99
[2023-12-22] MEDS: traZODone HCL 100 MG TABLET PO (00:55)
[2023-12-22] MEDS: hydrOXYzine HCL 50 MG TABLET 100 MG PO ×2 (00:55→12:04)
[2023-12-22 05:48] VITALS: BP 125/80
[2023-12-22] MEDS: cloNIDine HCL 0.1 MG TABLET PO ×2 (05:48→13:55)
[2023-12-22 07:00] VITALS: BMI 27.9
[2023-12-22 07:53] VITALS: BP 122/64; PULSE 85; RESP 18; TEMP 36.4; O2SAT 98
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
[2023-12-22] MEDS: Cariprazine HCl 3 MG CAPSULE 6 MG PO (12:04)
[2023-12-22 13:55] VITALS: BP 127/73
[2023-12-22 20:00] VITALS: BP 116/56; PULSE 74; RESP 16; TEMP 36.4; O2SAT 96
[2023-12-23 08:00] VITALS: BP 125/74; PULSE 76; TEMP 36.7; O2SAT 96
[2023-12-23 09:04] VITALS: BP 125/74
[2023-12-23] MEDS: cloNIDine HCL 0.1 MG TABLET PO ×2 (09:04→16:11)
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
[2023-12-23] MEDS: hydrOXYzine HCL 50 MG TABLET 100 MG PO (12:12)
[2023-12-23] MEDS: Cariprazine HCl 3 MG CAPSULE 6 MG PO ×2 (12:59→13:00)
[2023-12-23 16:11] VITALS: BP 139/75
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
[2023-12-24] MEDS: hydrOXYzine HCL 50 MG TABLET 100 MG PO (12:08)
[2023-12-24] MEDS: Cariprazine HCl 3 MG CAPSULE 6 MG PO (13:23)
[2023-12-24] MEDS: cloNIDine HCL 0.1 MG TABLET PO (16:50)
[2023-12-24 20:00] VITALS: BP 119/62; PULSE 99; RESP 16; TEMP 36.6; O2SAT 98
[2023-12-25] MEDS: hydrOXYzine HCL 50 MG TABLET 100 MG PO ×2 (01:15→22:43)
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
[2023-12-25 10:52] VITALS: BP 139/79
[2023-12-25] MEDS: cloNIDine HCL 0.1 MG TABLET PO ×2 (10:52→15:34)
[2023-12-25] MEDS: Cariprazine HCl 3 MG CAPSULE 6 MG PO (13:20)
[2023-12-25 15:34] VITALS: BP 123/78; PULSE 98; RESP 18; TEMP 36.8; O2SAT 99
[2023-12-25] MEDS: Nicotine Polacrilex 2 MG GUM 4 MG BUCCAL (17:44)
[2023-12-25 20:00] VITALS: BP 141/84; PULSE 91; RESP 15; TEMP 36.1; O2SAT 100
[2023-12-26] MEDS: Nicotine Polacrilex 2 MG GUM 4 MG BUCCAL ×3 (06:28→11:36)
[2023-12-26 08:00] VITALS: BP 131/81; PULSE 85; TEMP 36.7; O2SAT 97
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
[2023-12-26] MEDS: Cariprazine HCl 3 MG CAPSULE 6 MG PO (12:48)
[2023-12-26 20:00] VITALS: BP 121/63; PULSE 88; RESP 16; TEMP 36.1; O2SAT 98
[2023-12-27] MEDS: hydrOXYzine HCL 50 MG TABLET 100 MG PO ×2 (00:29→14:33)
[2023-12-27 01:09] VITALS: BP 131/79
[2023-12-27] MEDS: cloNIDine HCL 0.1 MG TABLET PO ×2 (01:09→13:09)
[2023-12-27] MEDS: Nicotine Polacrilex 2 MG GUM 4 MG BUCCAL (04:42)
[2023-12-27 08:00] VITALS: BP 122/75; PULSE 103; TEMP 36.3; O2SAT 98
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
[2023-12-27] MEDS: Lithium Carbonate ER 300 MG TABLET.ER PO (11:26)
[2023-12-27 13:09] VITALS: BP 116/62
[2023-12-27] MEDS: Cariprazine HCl 3 MG CAPSULE 6 MG PO (13:09)
[2023-12-27] MEDS: risperiDONE 2 MG TABLET PO (16:27)
[2023-12-27 20:00] VITALS: BP 136/95; PULSE 101; TEMP 36.3; O2SAT 95
[2023-12-28 08:23] VITALS: BP 105/61; PULSE 96; TEMP 36.8; O2SAT 95
--- NOTE | 2023-12-28 09:55 | P.PNPSI_ITS ---
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 to function Time Spent With Patient Time: Total time managing care of this patient today ____ minutes.
[2023-12-28] MEDS: risperiDONE 2 MG TABLET PO ×2 (14:19→21:04)
[2023-12-28] MEDS: OLANZapine ODT 10 MG TAB.RAPDIS TRANSLINGU (18:47)
[2023-12-28 20:00] VITALS: PULSE 124; RESP 18; TEMP 36.3
[2023-12-28 20:04] VITALS: BP 135/89; PULSE 124; RESP 18; TEMP 36.3; O2SAT 97
[2023-12-29] MEDS: cloNIDine HCL 0.1 MG TABLET PO (01:32)
[2023-12-29 07:00] VITALS: BMI 27.3
[2023-12-29 08:00] VITALS: BP 129/81; PULSE 105; RESP 18; TEMP 36.5; O2SAT 97
[2023-12-29] MEDS: risperiDONE 2 MG TABLET PO ×2 (08:44→18:44)
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
[2023-12-29] MEDS: hydrOXYzine HCL 50 MG TABLET 100 MG PO ×2 (10:08→21:28)
[2023-12-29] MEDS: Nicotine Polacrilex Lozenge 4 MG LOZENGE BUCCAL (11:53)
[2023-12-30 08:00] VITALS: BP 126/83; PULSE 138; RESP 16; TEMP 36.4; O2SAT 98
[2023-12-30] MEDS: risperiDONE 2 MG TABLET PO ×2 (10:45→21:45)
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
[2023-12-30 20:00] VITALS: BP 119/70; PULSE 83; TEMP 36.6; O2SAT 98
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
[2023-12-31] MEDS: risperiDONE 2 MG TABLET PO ×2 (10:33→21:35)
[2023-12-31 11:31] VITALS: BP 141/70; PULSE 107; RESP 19; TEMP 36.9; O2SAT 97
[2023-12-31] MEDS: Nicotine Polacrilex Lozenge 4 MG LOZENGE BUCCAL ×2 (13:51→18:59)
[2023-12-31] MEDS: hydrOXYzine HCL 50 MG TABLET 100 MG PO (18:44)
[2023-12-31] MEDS: Nicotine 21 MG PATCH.TD24 TRANSDERMA (19:02)
[2023-12-31 20:00] VITALS: PULSE 83; TEMP 36.4; O2SAT 97
[2024-01-01 08:00] VITALS: RESP 16
[2024-01-01] MEDS: risperiDONE 2 MG TABLET PO (09:24)
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
[2024-01-01] MEDS: Ziprasidone Mesylate 20 MG VIAL IM (21:10)
[2024-01-02 08:00] VITALS: BP 137/88; PULSE 144; TEMP 36.2; O2SAT 97
[2024-01-02] MEDS: Ziprasidone Mesylate 20 MG VIAL IM (09:41)
--- NOTE | 2024-01-02 09:56 | P.PNPSI_ITS ---
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 for anxiety DC Risperdal since pt took Vraylar today and says he's willing to continue taking it (has refused Risperdal throughout) Medication history: Risperdal, Wellbutrin #Hyperbilirubinemia on admission- mild, no jaundice -has history of elevated tbili, but at [facility] was 2.6, which is higher than previous. Denies substance use; Check U/S RUQ. If no acute findings, outpt follow up with GI -refused U/S RUQ Court order treatment plan options for medications: Risperdal Risperdal Uzedy upt to 125mg IM qmonth or 250mg IM [id number] Haldol/Haldol Decanoate Abilify/Abilify Maintena Vraylar Olanzapine Paliperidone Invega Sustenna Ziprasidone [place] Depakote Patient educated on: diagnosis, medication risk/benefits and therapeutic strategies Informed Consent: understands, does not understand and further education needed Reason for continued inpatient stay Substantial Risk for: inability to function Time Spent With Patient Time: Total time managing care of this patient today ____ minutes.
[2024-01-02] MEDS: risperiDONE 2 MG TABLET PO ×2 (12:37→21:10)
[2024-01-02] MEDS: buPROPion HCl XL 150 MG TAB.ER.24H PO (12:37)
[2024-01-02 13:52] VITALS: BP 119/70
[2024-01-02] MEDS: cloNIDine HCL 0.1 MG TABLET PO ×2 (13:52→18:31)
[2024-01-02] MEDS: risperiDONE ER 100 MG/0.28 ML SUSER.SYR SUBCUT (15:47)
[2024-01-02] MEDS: Nicotine Polacrilex Lozenge 4 MG LOZENGE BUCCAL (16:44)
[2024-01-02 18:31] VITALS: BP 119/71
[2024-01-02 19:52] VITALS: RESP 16
[2024-01-02 20:18] VITALS: RESP 16
[2024-01-03 04:26] VITALS: BP 136/72
[2024-01-03] MEDS: cloNIDine HCL 0.1 MG TABLET PO ×2 (04:26→13:05)
[2024-01-03] MEDS: Nicotine Polacrilex Lozenge 4 MG LOZENGE BUCCAL (07:20)
[2024-01-03 08:00] VITALS: BP 121/63; PULSE 102; RESP 18; TEMP 36.4; O2SAT 98
[2024-01-03] MEDS: risperiDONE 2 MG TABLET PO ×2 (09:07→20:30)
[2024-01-03] MEDS: buPROPion HCL 100 MG TABLET PO (09:07)
--- NOTE | 2024-01-03 09:29 | P.PNPSI_ITS ---
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 to long-acting Risperdaly Uzedy 125mg monthly Dc'd Vraylar 6mg (dc'd after about 10 days; patient's mood and affect improved but he remains psychotic; switching to Risperdal) PRN Geodon 20mg IM p.r.n. if patient refuses p.o. Vraylar PRNs Zyprexa 5 mg for agitation Continue clonidine as a p.r.n. for anxiety DC Risperdal since pt took Vraylar today and says he's willing to continue taking it (has refused Risperdal throughout) Medication history: Risperdal, Wellbutrin #Hyperbilirubinemia on admission- mild, no jaundice -has history of elevated tbili, but at [facility] was 2.6, which is higher than previous. Denies substance use; Check U/S RUQ. If no acute findings, outpt follow up with GI -refused U/S RUQ Court order treatment plan options for medications: Risperdal Risperdal Uzedy upt to 125mg IM qmonth or 250mg IM [id number] Haldol/Haldol Decanoate Abilify/Abilify Maintena Vraylar Olanzapine Paliperidone Invega Sustenna Ziprasidone [place] Depakote Patient educated on: diagnosis and medication risk/benefits Informed Consent: understands, does not understand and further education needed Reason for continued inpatient stay Substantial Risk for: inability to function Time Spent With Patient Time: Total time managing care of this patient today ____ minutes.
[2024-01-03 13:05] VITALS: BP 113/63
[2024-01-04] MEDS: risperiDONE 2 MG TABLET PO ×2 (08:16→21:40)
[2024-01-04] MEDS: buPROPion HCL 100 MG TABLET PO (08:16)
[2024-01-04 08:46] VITALS: BP 125/69; PULSE 88; RESP 16; TEMP 36.4; O2SAT 96
--- NOTE | 2024-01-04 18:47 | HO.PSYCHPN ---
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 monthly; this is the rough equivalent to 2 mg b.i.d. typically do not need to overlap with p.o. medication however given patient's agitation and threats want to accelerate time to a therapeutic steady state so will overlap with p.o. for several days Continue Risperdal 2mg BID (court ordered; Geodon IM if refuses); likely convert to long-acting Risperdaly Uzedy 125mg monthly Dc'd Vraylar 6mg (dc'd after about 10 days; patient's mood and affect improved but he remains psychotic; switching to Risperdal) PRN Geodon 20mg IM p.r.n. if patient refuses p.o. Vraylar PRNs Zyprexa 5 mg for agitation Continue clonidine as a p.r.n. for anxiety DC Risperdal since pt took Vraylar today and says he's willing to continue taking it (has refused Risperdal throughout) Medication history: Risperdal, Wellbutrin #Hyperbilirubinemia on admission- mild, no jaundice -has history of elevated tbili, but at [facility] was 2.6, which is higher than previous. Denies substance use; Check U/S RUQ. If no acute findings, outpt follow up with GI -refused U/S RUQ Court order treatment plan options for medications: Risperdal Risperdal Uzedy upt to 125mg IM qmonth or 250mg IM [id number] Haldol/Haldol Decanoate Abilify/Abilify Maintena Vraylar Olanzapine Paliperidone Invega Sustenna Ziprasidone [place] Depakote Patient educated on: diagnosis, medication risk/benefits and therapeutic strategies Informed Consent: understands, does not understand and further education needed Reason for continued inpatient stay Substantial Risk for: rapid decompensation Time Spent With Patient Time: Total time managing care of this patient today ____ minutes.
[2024-01-05 07:00] VITALS: BMI 28.1
[2024-01-05 08:00] VITALS: BP 144/90; PULSE 92; RESP 18; TEMP 36.7; O2SAT 99
[2024-01-05] MEDS: buPROPion HCL 100 MG TABLET PO (08:09)
[2024-01-05] MEDS: risperiDONE 2 MG TABLET PO (08:09)
[2024-01-05] MEDS: Nicotine Polacrilex Lozenge 4 MG LOZENGE BUCCAL ×2 (16:39→21:07)
--- NOTE | 2024-01-05 18:52 | HO.PSYCHPN ---
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 state at least by 5 days if not before, which patient has achieved; at this point theoretically, ANDRE Risperdal Uzedy should be adequate. It will be important to see if patient is stable with just long-acting injectable without p.o. overlap Plan: Section 8/8a: Involuntary commitment and substituted judgment Invoke healthcare proxy patient is delusional, without insight and poor judgment and does not understand his illness and need for treatment Q 5s minute checks Meds: Retry Wellbutrin?XL 150 mg daily Received?Risperdaly Uzedy 100 mg 1 time dose, then monthly; this is the rough equivalent to 2 mg b.i.d. typically do not need to overlap with p.o. medication however given patient's agitation and threats want to accelerate time to a therapeutic steady state so will overlap with p.o. for several days Continue Risperdal 2mg BID (court ordered; Geodon IM if refuses); likely convert to long-acting Risperdaly Uzedy 125mg monthly Dc'd Vraylar 6mg (dc'd after about 10 days; patient's mood and affect improved but he remains psychotic; switching to Risperdal) PRN Geodon 20mg IM p.r.n. if patient refuses p.o. Vraylar PRNs Zyprexa 5 mg for agitation Continue clonidine as a p.r.n. for anxiety DC Risperdal since pt took Vraylar today and says he's willing to continue taking it (has refused Risperdal throughout) Medication history: Risperdal, Wellbutrin #Hyperbilirubinemia on admission- mild, no jaundice -has history of elevated tbili, but at [facility] was 2.6, which is higher than previous. Denies substance use; Check U/S RUQ. If no acute findings, outpt follow up with GI -refused U/S RUQ Court order treatment plan options for medications: Risperdal Risperdal Uzedy upt to 125mg IM qmonth or 250mg IM [id number] Haldol/Haldol Decanoate Abilify/Abilify Maintena Vraylar Olanzapine Paliperidone Invega Sustenna Ziprasidone [place] Depakote Patient educated on: diagnosis, medication risk/benefits and therapeutic strategies Informed Consent: understands and further education needed Reason for continued inpatient stay Substantial Risk for: rapid decompensation Time Spent With Patient Time: Total time managing care of this patient today ____ minutes.
[2024-01-05 20:00] VITALS: BP 130/61; PULSE 96; TEMP 36.8; O2SAT 96
[2024-01-06] MEDS: Nicotine Polacrilex Lozenge 4 MG LOZENGE BUCCAL ×2 (06:28→10:18)
[2024-01-06 08:00] VITALS: BP 124/59; PULSE 96; TEMP 35.9; O2SAT 96
[2024-01-06] MEDS: buPROPion HCl XL 150 MG TAB.ER.24H PO (08:29)
--- NOTE | 2024-01-06 11:09 | HO.PSYCHPN ---
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 be important to see if patient is stable with just long-acting injectable without p.o. overlap Plan: Section 8/8a: Involuntary commitment and substituted judgment Invoke healthcare proxy patient is delusional, without insight and poor judgment and does not understand his illness and need for treatment Q 5s minute checks Meds: Retry Wellbutrin?XL 150 mg daily Received?Risperdaly Uzedy 100 mg 1 time dose, then monthly; this is the rough equivalent to 2 mg b.i.d. typically do not need to overlap with p.o. medication however given patient's agitation and threats want to accelerate time to a therapeutic steady state so will overlap with p.o. for several days Continue Risperdal 2mg BID (court ordered; Geodon IM if refuses); likely convert to long-acting Risperdaly Uzedy 125mg monthly Dc'd Vraylar 6mg (dc'd after about 10 days; patient's mood and affect improved but he remains psychotic; switching to Risperdal) PRN Geodon 20mg IM p.r.n. if patient refuses p.o. Vraylar PRNs Zyprexa 5 mg for agitation Continue clonidine as a p.r.n. for anxiety DC Risperdal since pt took Vraylar today and says he's willing to continue taking it (has refused Risperdal throughout) Medication history: Risperdal, Wellbutrin #Hyperbilirubinemia on admission- mild, no jaundice -has history of elevated tbili, but at [facility] was 2.6, which is higher than previous. Denies substance use; Check U/S RUQ. If no acute findings, outpt follow up with GI -refused U/S RUQ Court order treatment plan options for medications: Risperdal Risperdal Uzedy upt to 125mg IM qmonth or 250mg IM [id number] Haldol/Haldol Decanoate Abilify/Abilify Maintena Vraylar Olanzapine Paliperidone Invega Sustenna Ziprasidone Fleming Depakote Reason for continued inpatient stay Substantial Risk for: rapid decompensation Time Spent With Patient Time: Total time managing care of this patient today ____ minutes.
[2024-01-06 20:00] VITALS: BP 112/96; PULSE 97; RESP 18; TEMP 36.4; O2SAT 98
[2024-01-07] MEDS: Nicotine Polacrilex Lozenge 4 MG LOZENGE BUCCAL ×2 (06:15→11:43)
[2024-01-07 08:00] VITALS: BP 127/79; PULSE 101; TEMP 36.4; O2SAT 95
[2024-01-07] MEDS: buPROPion HCl XL 150 MG TAB.ER.24H PO (08:38)
--- NOTE | 2024-01-07 10:22 | P.PNPSI_ITS ---
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 to see if patient is stable with just long- acting injectable without p.o. overlap 01/06 patient improving; continue treatment plan -earlier patient for the 1st time acknowledged the reason he came to the hospital was because he was not taking his medications and because of his behaviors; this yeboah improved insight Plan: Section 8/8a: Involuntary commitment and substituted judgment Invoke healthcare proxy patient is delusional, without insight and poor judgment and does not understand his illness and need for treatment Q 5s minute checks Meds: Continue Wellbutrin?XL 150 mg daily Received?Risperdaly Uzedy 100 mg 1 time dose, then monthly; this is the rough equivalent to 2 mg b.i.d. typically do not need to overlap with p.o. medication however given patient's agitation and threats want to accelerate time to a therapeutic steady state so will overlap with p.o. for several days Continue Risperdal 2mg BID (court ordered; Geodon IM if refuses); likely convert to long-acting Risperdaly Uzedy 125mg monthly Dc'd Vraylar 6mg (dc'd after about 10 days; patient's mood and affect improved but he remains psychotic; switching to Risperdal) PRN Geodon 20mg IM p.r.n. if patient refuses p.o. Vraylar PRNs Zyprexa 5 mg for agitation Continue clonidine as a p.r.n. for anxiety DC Risperdal since pt took Vraylar today and says he's willing to continue taking it (has refused Risperdal throughout) Medication history: Risperdal, Wellbutrin #Hyperbilirubinemia on admission- mild, no jaundice -has history of elevated tbili, but at [facility] was 2.6, which is higher than previous. Denies substance use; Check U/S RUQ. If no acute findings, outpt follow up with GI -refused U/S RUQ Court order treatment plan options for medications: Risperdal Risperdal Uzedy upt to 125mg IM qmonth or 250mg IM [id number] Haldol/Haldol Decanoate Abilify/Abilify Maintena Vraylar Olanzapine Paliperidone Invega Sustenna Ziprasidone [place] Depakote Patient educated on: diagnosis, medication risk/benefits and therapeutic strategies Informed Consent: understands, does not understand and further education needed Reason for continued inpatient stay Substantial Risk for: stable for discharge, rapid decompensation and med/psych decompensation Time Spent With Patient Time: Total time managing care of this patient today ____ minutes.
[2024-01-07 19:46] VITALS: BP 153/89; PULSE 103; RESP 18; TEMP 36.1; O2SAT 97
[2024-01-08] MEDS: Nicotine Polacrilex Lozenge 4 MG LOZENGE BUCCAL (03:31)
[2024-01-08 08:00] VITALS: BP 114/57; PULSE 70; RESP 16; TEMP 36.6; O2SAT 97
[2024-01-08] MEDS: buPROPion HCl XL 150 MG TAB.ER.24H PO (08:26)
--- NOTE | 2024-01-08 08:26 | P.PNPSI_ITS ---
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 is pretty much able to ignore it; sometimes he will talk to it and that will make it go away. -this disclosure represents significant improvement Plan: Section 8/8a: Involuntary commitment and substituted judgment Invoke healthcare proxy patient is delusional, without insight and poor judgment and does not understand his illness and need for treatment Q 5s minute checks Meds: Continue Wellbutrin?XL 150 mg daily Received?Risperdaly Uzedy 100 mg 1 time dose, then monthly; this is the rough equivalent to 2 mg b.i.d. typically do not need to overlap with p.o. medication however given patient's agitation and threats want to accelerate time to a therapeutic steady state so will overlap with p.o. for several days Continue Risperdal 2mg BID (court ordered; Geodon IM if refuses); likely convert to long-acting Risperdaly Uzedy 125mg monthly Dc'd Vraylar 6mg (dc'd after about 10 days; patient's mood and affect improved but he remains psychotic; switching to Risperdal) PRN Geodon 20mg IM p.r.n. if patient refuses p.o. Vraylar PRNs Zyprexa 5 mg for agitation Continue clonidine as a p.r.n. for anxiety DC Risperdal since pt took Vraylar today and says he's willing to continue taking it (has refused Risperdal throughout) Medication history: Risperdal, Wellbutrin #Hyperbilirubinemia on admission- mild, no jaundice -has history of elevated tbili, but at [facility] was 2.6, which is higher than previous. Denies substance use; Check U/S RUQ. If no acute findings, outpt follow up with GI -refused U/S RUQ Court order treatment plan options for medications: Risperdal Risperdal Uzedy upt to 125mg IM qmonth or 250mg IM [id number] Haldol/Haldol Decanoate Abilify/Abilify Maintena Vraylar Olanzapine Paliperidone Invega Sustenna Ziprasidone Lanett Depakote Patient educated on: diagnosis and medication risk/benefits Informed Consent: understands and further education needed Reason for continued inpatient stay Substantial Risk for: stable for discharge Time Spent With Patient Time: Total time managing care of this patient today ____ minutes.
[2024-01-08 19:39] VITALS: BP 111/65; PULSE 78; RESP 15; TEMP 36.2; O2SAT 96
[2024-01-09 07:57] VITALS: BP 132/77; PULSE 97; RESP 18; TEMP 36.6; O2SAT 98
[2024-01-09] MEDS: Nicotine Polacrilex Lozenge 4 MG LOZENGE BUCCAL (08:31)
[2024-01-09] MEDS: buPROPion HCl XL 150 MG TAB.ER.24H PO (08:32)
--- NOTE | 2024-01-09 12:05 | HO.PSYCHPN ---
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 important to see if patient is stable with just long-acting injectable without p.o. overlap 01/06 patient improving; continue treatment plan -earlier patient for the 1st time acknowledged the reason he came to the hospital was because he was not taking his medications and because of his behaviors; this yeboah improved insight 01/07 Remains stable and reports that he is good and feels that Wellbutrin works perfectly. ? Patient has remained in good behavioral and impulse control; says he will shower later today. Patient characteristically open about auditory hallucinations. He said before he was having AH that was taunting him and upsetting him; he says on the Risperdal and Wellbutrin it is only a little bit and he is pretty much able to ignore it; sometimes he will talk to it and that will make it go away. -this disclosure represents significant improvement 01/08 continue current tx plan; discussing dispo for this week. Refusing therapist but says will continue to meet w/ psych provider and take meds; no obvious need for Haldol (and mother says was not well tolerated) Plan: Section 8/8a: Involuntary commitment and substituted judgment Invoke healthcare proxy patient is delusional, without insight and poor judgment and does not understand his illness and need for treatment Q 15s minute checks Meds: Continue Wellbutrin?XL 150 mg daily Received?Risperdaly Uzedy 100 mg 1 time dose, then monthly; this is the rough equivalent to 2 mg b.i.d. typically do not need to overlap with p.o. medication however given patient's agitation and threats want to accelerate time to a therapeutic steady state so will overlap with p.o. for several days Continue Risperdal 2mg BID (court ordered; Geodon IM if refuses); likely convert to long-acting Risperdaly Uzedy 125mg monthly Dc'd Vraylar 6mg (dc'd after about 10 days; patient's mood and affect improved but he remains psychotic; switching to Risperdal) PRN Geodon 20mg IM p.r.n. if patient refuses p.o. Vraylar PRNs Zyprexa 5 mg for agitation Continue clonidine as a p.r.n. for anxiety DC Risperdal since pt took Vraylar today and says he's willing to continue taking it (has refused Risperdal throughout) Medication history: Risperdal, Wellbutrin #Hyperbilirubinemia on admission- mild, no jaundice -has history of elevated tbili, but at [facility] was 2.6, which is higher than previous. Denies substance use; Check U/S RUQ. If no acute findings, outpt follow up with GI -refused U/S RUQ Court order treatment plan options for medications: Risperdal Risperdal Uzedy upt to 125mg IM qmonth or 250mg IM [id number] Haldol/Haldol Decanoate Abilify/Abilify Maintena Vraylar Olanzapine Paliperidone Invega Sustenna Ziprasidone [place] Depakote Patient educated on: diagnosis and medication risk/benefits Informed Consent: understands, does not understand and further education needed Reason for continued inpatient stay Substantial Risk for: stable for discharge Time Spent With Patient Time: Total time managing care of this patient today ____ minutes.
[2024-01-10 08:00] VITALS: BP 114/67; PULSE 86; RESP 16; TEMP 36.1; O2SAT 97
[2024-01-10] MEDS: buPROPion HCl XL 150 MG TAB.ER.24H PO (08:36)
--- NOTE | 2024-01-10 17:33 | HO.PSYCHPN ---
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 about auditory hallucinations. He said before he was having AH that was taunting him and upsetting him; he says on the Risperdal and Wellbutrin it is only a little bit and he is pretty much able to ignore it; sometimes he will talk to it and that will make it go away. -this disclosure represents significant improvement 01/09 at baseline; insight and judgment improved; seems likely he is still with non-disclosed psychotic symptoms but pt able to function and it's unlikely he'll improve further (at least on current regimen). Will continue dispo planning with pt's family and dc this week. Plan: Section 8/8a: Involuntary commitment and substituted judgment Invoke healthcare proxy patient is delusional, without insight and poor judgment and does not understand his illness and need for treatment Q 5s minute checks Meds: Continue Wellbutrin?XL 150 mg daily Received?Risperdaly Uzedy 100 mg 1 time dose, then monthly; this is the rough equivalent to 2 mg b.i.d. typically do not need to overlap with p.o. medication however given patient's agitation and threats want to accelerate time to a therapeutic steady state so will overlap with p.o. for several days Continue Risperdal 2mg BID (court ordered; Geodon IM if refuses); likely convert to long-acting Risperdaly Uzedy 125mg monthly Dc'd Vraylar 6mg (dc'd after about 10 days; patient's mood and affect improved but he remains psychotic; switching to Risperdal) PRN Geodon 20mg IM p.r.n. if patient refuses p.o. Vraylar PRNs Zyprexa 5 mg for agitation Continue clonidine as a p.r.n. for anxiety DC Risperdal since pt took Vraylar today and says he's willing to continue taking it (has refused Risperdal throughout) Medication history: Risperdal, Wellbutrin #Hyperbilirubinemia on admission- mild, no jaundice -has history of elevated tbili, but at [facility] was 2.6, which is higher than previous. Denies substance use; Check U/S RUQ. If no acute findings, outpt follow up with GI -refused U/S RUQ Court order treatment plan options for medications: Risperdal Risperdal Uzedy upt to 125mg IM qmonth or 250mg IM [id number] Haldol/Haldol Decanoate Abilify/Abilify Maintena Vraylar Olanzapine Paliperidone Invega Sustenna Ziprasidone [place] Depakote Patient educated on: diagnosis and therapeutic strategies Informed Consent: understands Reason for continued inpatient stay Substantial Risk for: stable for discharge Time Spent With Patient Time: Total time managing care of this patient today ____ minutes.
[2024-01-10 20:00] VITALS: RESP 18
[2024-01-11 08:00] VITALS: BP 128/68; PULSE 89; RESP 14; TEMP 36.6; O2SAT 96
[2024-01-11] MEDS: buPROPion HCl XL 150 MG TAB.ER.24H PO (08:34)
--- NOTE | 2024-01-11 09:41 | HO.PSYCHPN ---
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 hospital was because he was not taking his medications and because of his behaviors; this yeboah improved insight 01/07 Remains stable and reports that he is good and feels that Wellbutrin works perfectly. ? Patient has remained in good behavioral and impulse control; says he will shower later today. Patient characteristically open about auditory hallucinations. He said before he was having AH that was taunting him and upsetting him; he says on the Risperdal and Wellbutrin it is only a little bit and he is pretty much able to ignore it; sometimes he will talk to it and that will make it go away. -this disclosure represents significant improvement 01/09 at baseline; insight and judgment improved; seems likely he is still with non-disclosed psychotic symptoms but pt able to function and it's unlikely he'll improve further (at least on current regimen). Will continue dispo planning with pt's family and dc this week. -at baseline; appropriate to return to community Plan: Section 8/: Involuntary commitment and substituted judgment Invoke healthcare proxy patient is delusional, without insight and poor judgment and does not understand his illness and need for treatment Q 5s minute checks Meds: Continue Wellbutrin?XL 150 mg daily Received?Risperdaly Uzedy 100 mg 1 time dose, then monthly; this is the rough equivalent to 2 mg b.i.d. typically do not need to overlap with p.o. medication however given patient's agitation and threats want to accelerate time to a therapeutic steady state so will overlap with p.o. for several days Continue Risperdal 2mg BID (court ordered; Geodon IM if refuses); likely convert to long-acting Risperdaly Uzedy 125mg monthly Dc'd Vraylar 6mg (dc'd after about 10 days; patient's mood and affect improved but he remains psychotic; switching to Risperdal) PRN Geodon 20mg IM p.r.n. if patient refuses p.o. Vraylar PRNs Zyprexa 5 mg for agitation Continue clonidine as a p.r.n. for anxiety DC Risperdal since pt took Vraylar today and says he's willing to continue taking it (has refused Risperdal throughout) Medication history: Risperdal, Wellbutrin #Hyperbilirubinemia on admission- mild, no jaundice -has history of elevated tbili, but at [facility] was 2.6, which is higher than previous. Denies substance use; Check U/S RUQ. If no acute findings, outpt follow up with GI -refused U/S RUQ Court order treatment plan options for medications: Risperdal Risperdal Uzedy upt to 125mg IM qmonth or 250mg IM [id number] Haldol/Haldol Decanoate Abilify/Abilify Maintena Vraylar Olanzapine Paliperidone Invega Sustenna Ziprasidone Humnoke Depakote Patient educated on: diagnosis and medication risk/benefits Informed Consent: understands, does not understand and further education needed Reason for continued inpatient stay Substantial Risk for: stable for discharge Time Spent With Patient Time: Total time managing care of this patient today ____ minutes.
[2024-01-11] MEDS: Nicotine Polacrilex Lozenge 4 MG LOZENGE BUCCAL (17:23)
[2024-01-11 20:00] VITALS: BP 147/82; PULSE 102; RESP 20; TEMP 36.7; O2SAT 95
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
[2024-01-12] MEDS: Nicotine Polacrilex Lozenge 4 MG LOZENGE BUCCAL ×2 (03:55→06:26)
[2024-01-12 08:25] VITALS: BP 134/65; PULSE 85; RESP 16; TEMP 36.3; O2SAT 97
[2024-01-12] MEDS: buPROPion HCl XL 150 MG TAB.ER.24H PO (08:36)
== END 2024-01-12 11:21 | disposition home or self-care (01) | DRG 750 ==
PROVIDERS: Admitting Provider Psychiatry & Neurology Psychiatry; Visit Provider Psychiatry & Neurology Psychiatry
DX: F25.0 Schizoaffective disorder, bipolar type (principal); E80.6 Other disorders of bilirubin metabolism; F90.9 Attention-deficit hyperactivity disorder, unspecified type; F17.210 Nicotine dependence, cigarettes, uncomplicated; Z71.6 Tobacco abuse counseling; Z79.899 Other long term (current) drug therapy
CPT/HCPCS: J2799; J3486

== ENCOUNTER → 2023-11-29 20:49 | Outpatient (BNV) | payer MEDICAID, OTHER, SELFPAY | PROVIDERS: Admitting Provider Psychiatry & Neurology Psychiatry; Visit Provider Psychiatry & Neurology Psychiatry | DX: F25.0 Schizoaffective disorder, bipolar type (principal); F90.9 Attention-deficit hyperactivity disorder, unspecified type; E80.6 Other disorders of bilirubin metabolism | CPT/HCPCS: 90792; 99231; 99232 ==

== ENCOUNTER → 2023-11-29 20:49 | Outpatient (BNV) | payer OTHER, SELFPAY | PROVIDERS: Admitting Provider Psychiatry & Neurology Psychiatry; Visit Provider Physician Assistant | DX: E80.6 Other disorders of bilirubin metabolism (principal) | CPT/HCPCS: 99221; 99499 ==

== ENCOUNTER 2024-07-17 14:20 | Inpatient (IN) | payer OTHER, SELFPAY ==
[2024-07-17 14:32] VITALS: BP 123/71; BP 148/86; PULSE 70; PULSE 92; RESP 18; TEMP 36.7; O2SAT 98; O2SAT 99; BMI 26.6
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
[2024-07-17 14:56] LABS: MANUAL DIFF FLAG NO
[2024-07-17 14:57] LABS: Basophils Percent Auto 0.6 % (0-2); Eosinophils Percent Auto 0.1 % (0-4); Hematocrit 41.4 % (42.0-52.0); Hemoglobin 14.6 g/dl (14.0-18.0); Imm Gran Abs Auto 0.05 X10*3/uL (0.00-0.03); Imm Gran Pct Auto 0.7 % (0.0-0.4); Lymphocytes Absolute Auto 2.1 X10*3/uL (1.2-4.9); Lymphocytes Percent Auto 30.7 % (20-40); Mean Corpuscular HGB Conc 35.3 g/dl (31.0-36.0); Mean Corpuscular Hemoglobin 31.4 pg (27.0-33.0); Mean Platelet Volume 10.2 fL (9.4-12.4); Monocytes Absolute Auto 0.5 X10*3/uL (0.1-1.2); Neutrophils Absolute Auto 4.2 x10*3/uL (2.0-8.3); Neutrophils Percent Auto 60.9 % (45-73); Platelet Count 260 X10*3/uL (160-400); Red Blood Count 4.65 X10*6/uL (4.60-5.80); Red Cell Distribution Width 12.1 % (11.0-16.0); White Blood Count 6.9 X10*3/uL (4.8-10.8)
[2024-07-17 15:26] LABS: Alanine Aminotransferase 74 U/L (0-40); Albumin Level 4.3 g/dL (3.5-5.0); Alkaline Phosphatase 64 U/L (39-117); Anion Gap 9 (12-20); Aspartate Amino Transferase 39 U/L (5-37); Bilirubin Direct 0.3 mg/dL (0.0-0.5); Bilirubin Total 1.1 mg/dL (0.0-1.0); Blood Urea Nitrogen 16 mg/dL (9-16); Carbon Dioxide 29 mmol/L (22-29); Chloride 106 mmol/L (96-108); Creatinine Clr Calc Pharmacy 146.3; Estimated Glomerular Filt Rate > 60; Ethanol < 10 mg/dL; Glucose Random 86 mg/dL (60-115); Lipase 12 U/L (8-78); Potassium 3.9 mmol/L (3.3-5.1); Sodium 140 mmol/L (135-145); Total Protein 7.1 g/dL (6.5-8.0)
--- NOTE | 2024-07-17 15:42 | ED.PSYCH ---
HPI - Psych General Chief Complaint: Psychiatric Symptoms Stated Complaint: PER FAM SCHIZO MANIC,NON MED COMP,FRANKEL ORDER Time Seen by Provider: 07/17/24 14:35 Source: patient and EMS Mode of arrival: EMS Limitations: no limitations History of Present Illness ED Provider: DR. Patel HPI Narrative: 28-year-old male with past medical history of bipolar, substance abuse, ADHD, anxiety patient is known to be a non medication compliant, presented today for a concern of bizarre behavior and manic episodes history was obtained from old chart patient is not able to give a meaningful history at this point. Related Data Previous Rx's ?Medication ?Instructions ?Recorded bupropion HCl 150 mg 24 hr tablet, 150 mg PO DAILY 30 days #30 tabs 01/11/24 extended release clonidine HCl 0.1 mg tablet 0.1 mg PO Q4H PRN anxiety 30 days 01/11/24 #90 tabs nicotine (polacrilex) 4 mg buccal 4 mg buccal Q2H PRN Nicotine 01/11/24 lozenge Cravings 30 days #108 ea risperidone 100 mg/0.28 mL 100 mg (0.28 mL) subcut Q28D 28 01/11/24 subcutaneous extend release susp days #0.28 mL syringe (Uzedy) risperidone 2 mg tablet 2 mg PO DAILY PRN agitation 30 01/11/24 days #30 tabs Allergies Allergy/AdvReac Type Severity Reaction Status Date / Time strawberry Allergy Mild Itching Verified 07/17/24 14:35 cefazolin Allergy Unknown Itching Verified 07/17/24 14:35 sulfamethoxazole Allergy Unknown Itching Verified 07/17/24 14:35 [From Bactrim] trimethoprim [From Bactrim] Allergy Unknown Itching Verified 07/17/24 14:35 lorazepam [From Ativan] AdvReac Agitated Verified 07/17/24 14:35 lithium AdvReac Unknown other Uncoded 11/29/23 21:03 Review of Systems Review of Systems: Yes Unobtainable due to mental status PMFSH Past Medical History Medical History Hyperbilirubinemia Bipolar 1 disorder Cannabis abuse ADHD Anxiety Social History Social History Household Members: Family Household Members Other:: parents Housing: House Do you presently have visiting nurse or other home services: No Unable to assess alcohol history related to: Refusing to respond Patient Tobacco Use Status: Current someday Tobacco user Tobacco use type: Cigar Smoked in Last 30 Days: Yes e-Cigarette/Vaping Use: Never Used Second Hand Smoke Exposure: No Use of substances other than those prescribed or required for medical reasons: Refusing to respond Substance Use Type: Marijuana Do you have a plan to hurt others: No Plan service: No Sexual orientation: Decline to Answer Physical Exam Vital Signs: Vital Signs: Last Vital Signs Temp 98.0 F 07/17/24 14:32 Pulse 92 07/17/24 14:32 Resp 18 07/17/24 14:32 BP 148/86 H 07/17/24 14:32 Pulse Ox 98 07/17/24 14:32 O2 Del Method Room Air 07/17/24 14:32 BMI result Body Mass Index 26.6 Vital signs have been reviewed and appear to be correct. Blood pressure elevated. Heart rate normal. Respiratory rate normal. Temperature normal. Oxygen saturation normal. Appearance: Alert. Oriented X3. No acute distress. Head: Normal external exam. Normocephalic. Atraumatic. No Thomas signs noted. No raccoon eyes noted Eyes: PERRLA. EOMI. Conjunctiva and sclera normal. Eyelids normal. ENT: TM's Normal. Pharynx normal. Uvula midline. Moist mucous membranes. No trismus noted. No drooling noted. No muffled voice noted. Neck: Normal inspection. Neck supple. FROM. No adenopathy. Thyroid Normal. No meningeal signs. No neck mass noted. CVS: Normal heart rate and rhythm. Heart sound normal. No murmurs noted. Pulses normal throughout. Respiratory: No respiratory distress. Painless inspiration. Breath sounds normal. No wheezes/rales/rhonchi noted. Chest nontender. No accessory muscle usage noted or decreased air movement noted. Abdomen: Soft and nontender. Bowel sounds normal in all 4 quadrants. No distention noted. No organomegaly noted. No visible injury noted. Back: No CVA tenderness. Full range of motion noted. Skin: Skin warm and dry. Normal skin color. Normal skin turgor. No rashes/lesions/lacerations noted. Extremities: No lower extremity edema. Extremities exhibit normal range of motion. Extremities nontender. Neuro: Oriented X 3. Cranial nerve exam: II-XII are grossly intact No motor deficit. No sensory deficit. Reflexes normal. Course Reevaluation(s) Reevaluation #1: Manic behavior with known history of schizophrenia. Unable to get full history, labs are unremarkable patient medically cleared. patient is under section 12. Time: 15:47 Medical Decision Making Differential Diagnosis Differential Diagnoses: The differential diagnosis associated with the presentation includes ( Medical clearance, acute psychosis.) Admission/Observation Consideration of admission/observation: Escalation of care including admission/observation considered Consult Healthcare Provider Management of the patient was discussed with: Mechanical Equipment Sales Engineer ( care team) Lab Data MDM Lab Attestation statement: I reviewed the patient's lab results. 07/17/24 14:49 07/17/24 14:49 Labs: Lab Results 07/17/24 Range/Units 14:49 WBC 6.9 (4.8-10.8) X10*3/uL RBC 4.65 (4.60-5.80) X10*6/uL Hgb 14.6 (14.0-18.0) g/dl Hct 41.4 L (42.0-52.0) % MCV 89.0 (80.0-98.0) fL MCH 31.4 (27.0-33.0) pg MCHC 35.3 (31.0-36.0) g/dl RDW 12.1 (11.0-16.0) % Plt Count 260 (160-400) X10*3/uL MPV 10.2 (9.4-12.4) fL Immature Gran % (Auto) 0.7 H (0.0-0.4) % Neut % (Auto) 60.9 (45-73) % Lymph % (Auto) 30.7 (20-40) % [place] % (Auto) 7.0 (2-11) % Eos % (Auto) 0.1 (0-4) % Baso % (Auto) 0.6 (0-2) % Lymph # (Auto) 2.1 (1.2-4.9) X10*3/uL [place] # (Auto) 0.5 (0.1-1.2) X10*3/uL Eos # (Auto) 0.0 (0.0-0.4) X10*3/uL Baso # (Auto) 0.0 (0.0-0.2) X10*3/uL Abs Immat Gran (auto) 0.05 H (0.00-0.03) X10*3/uL Absolute Neuts (auto) 4.2 (2.0-8.3) x10*3/uL Absolute Nucleated RBC 0.000 (0.0-0.012) X10*3/uL Nucleated RBC % (auto) 0.0 (0.0-0.2) /100WBC Sodium 140 (135-145) mmol/L Potassium 3.9 (3.3-5.1) mmol/L Chloride 106 (96-108) mmol/L Carbon Dioxide 29 (22-29) mmol/L Anion Gap 9 L (12-20) BUN 16 (9-16) mg/dL Creatinine 0.74 (0.5-1.4) mg/dL Estim Creat Clear Calc 146.3 Estimated GFR > 60 Random Glucose 86 (60-115) mg/dL Calcium 9.0 D (8.4-10.2) mg/dL Total Bilirubin 1.1 H (0.0-1.0) mg/dL Direct Bilirubin 0.3 (0.0-0.5) mg/dL AST 39 H (5-37) U/L ALT 74 H (0-40) U/L Alkaline Phosphatase 64 (39-117) U/L Total Protein 7.1 (6.5-8.0) g/dL Albumin 4.3 (3.5-5.0) g/dL Lipase 12 (8-78) U/L Ethyl Alcohol < 10 mg/dL Discharge Plan Discharge Clinical Impression: Bipolar 1 disorder Prescriptions: No Action nicotine (polacrilex) 4 mg Lozenge 4 mg buccal Q2H PRN (Reason: Nicotine Cravings) 30 Days Qty: 108 0RF clonidine HCl 0.1 mg Tablet 0.1 mg PO Q4H PRN (Reason: anxiety) 30 Days Qty: 90 0RF Protocol: Hold for SBP< HOLD for SBP < : 90 bupropion HCl 150 mg Tablet Extended Release 24 Hr 150 mg PO DAILY 30 Days Qty: 30 0RF risperidone 2 mg Tablet 2 mg PO DAILY PRN (Reason: agitation) 30 Days Qty: 30 0RF Uzedy 100 mg/0.28 mL suspension,extended rel syring 100 mg subcut Q28D 28 Days Qty: 0.28 0RF Rx Instructions: due on 01/30/24 Interventions: Bacon-Suicide Risk Severity Scale Last Done: 07/17/24 14:38 Print Language: Moroccan
--- NOTE | 2024-07-17 16:23 | PC.NURSE ---
pt went to use the bathroom, tech in the pod asked the patient for UA which pt has refused.
--- NOTE | 2024-07-17 16:50 | PC.NURSE ---
charge nurse notified pt needs an ekg/tech to come perform the EKG.
--- NOTE | 2024-07-17 18:59 | PC.NURSE ---
patient appears to be reclinig on bed in room, moving feet periodically appears in no acute distress.
--- OUTSIDE RECORDS SUMMARY | 2024-07-17 19:08 | XMS_ITS | Encounter Summary ---
Author Organization [facility] Address [address] [place] [phone] Phone Care Team Providers Care Shellfish Farming Supervisor Name Role Phone Carlos Cabrera MD Primary Care Provider Richard shafer Encounter Details Date Type Department Care Team (Late st Contact Info) Description 09/04/2017 Conversion Encounter [facility] [address] [id number] Carlos Cabrera MD Social History Tobacco Use Types Packs/Day Years Used Date Smoking Tobacco: Never Assessed Sex and Gender Information Value Date Recorded Sex Assigned at Not on file Legal Sex Male 6:09 PM EDT Gender Identity Not on file Sexual Orientation Not on file documented as of this encounter Plan of Treatment Not on file documented as of this encounter Visit Diagnoses Not on filedocumented in this encounter Care Teams Shellfish Farming Supervisor Relationship Specialty Start Date End Date Carlos Cabrera MD PCP - General 08/24/17 documented as of this encounter
--- OUTSIDE RECORDS SUMMARY | 2024-07-17 19:08 | XMS_ITS | Clinical Summary ---
Author Organization [facility] ity Address [address] [place] [address] Care Team Providers Care Student Counsellor Name Role Phone Unavailable Primary Care Provider Unavailabl e Social History Tobacco Use Types Packs/Day Years Used Date Smoking Tobacco: Never Assessed Sex and Gender Information Value Date Recorded Sex Assigned at Not on file Legal Sex Male 3:42 PM EDT Gender Identity Not on file Sexual Orientation Not on file Plan of Treatment Health Maintenance Due Date Last Done Comments HPV Vaccines (1 - Male 3-dos e series) 2012 DTaP,Tdap,and Td Vaccines (1 - Tdap) 2016 Hepatitis B Vaccines (1 of 3 - 19+ 3-dose series) 2016 COVID-19 Vaccine ( - 2023-2 5 season) 2023 Influenza Vaccine (#1) 2023 Depression Screening 01/26/2024 HIV Screening 01/26/2024 Hepatitis C Screening 01/26/2024 Social Influencers of Health Screening 01/26/2024 HIB Vaccines Aged Out No longer eligi ble based on patient's age to complete this topic Hepatitis A Vaccines Aged Out No long er eligible based on patient's age to complete this topic IPV Vaccines Aged Out No longer eligi ble based on patient's age to complete this topic MMR Vaccines Aged Out No longer eligi ble based on patient's age to complete this topic Meningococcal ACWY Vaccine Aged Out N o longer eligible based on patient's age to complete this topic Meningococcal B Vacine Aged Out No lo nger eligible based on patient's age to complete this topic Pneumococcal Vaccine: Pediat rics (0 to 5 Years) and At-Risk Patients (6 to 64 Years) Aged Out No longer eligible b ased on patient's age to complete this topic RSV Immunization Patients Un carlos eduardo 20 months Aged Out No longer eligible b ased on patient's age to complete this topic Varicella Vaccines Aged Out No longer eligible based on patient's age to complete this topic
--- OUTSIDE RECORDS SUMMARY | 2024-07-17 19:08 | XMS_ITS | Clinical Summary ---
Author Organization [facility] Address [address] [place] [id number] Phone Care Team Providers Care Log Chain Worker Name Role Phone Carlos Cabrera MD Primary Care Provider Richard shafer Allergies Active Allergy Reactions Criticality Noted Date Comments Cefprozil Sulfamethoxazole-Trimethoprim Medications fluticasone 50 MCG/ACT nasal spray INHALE 2 SPRAYS IN EACH NOSTRIL DAILY NEEDED NASAL PRESSURE 0 03/13/2018 Active buPROPion SR 100 MG 12 hr tablet Take 100 mg by mouth once daily. 1 02/20/2018 Active buPROPion 100 MG tablet 02/08/2018 Active Immunizations Immunization Administration Dates Next Due DTaP 07/29/2002, 0,06/12/1998,04/08,02/06/1998 H1N1 03/20/2009 HPV Vaccine 9 Valent 11/06/2015,12/24/2014 HPV, Quadrivalent 12/06/2013 Hep B, ped/adol 09/04/1998,01/07/1998,1997 Hib (PRP-T) 04/28/1999, 9,04/08/1998,02/06 IPV 07/31/2002, 0,04/08/1998,02/06 Influenza 02/02/2007 Influenza, injectable, quadrivalent 01/17,04/23/2014,03/21/2012,12/12,01/11/2009,02/24/2008 Influenza, injectable, quadr ivalent, preservative free 01/18/2017,12/24/2014,01/18/2013,12/16 MMR 07/31/2002,04/28/1999 Meningococcal Conj (Menactra) MCV4P 12/06/2013,1 Tdap 01/17/2009 Unknown Vaccine 11/05/2011 Varicella 12/13/2007,12/08/1998 Family History Relation Name Status Comments Father Alive healthy age: 36 Maternal Grandfather CAD age 62 diagnosed with HEART DISEASE NOS Maternal Grandmother Alive hyperli pidemia age: 65 diagnosed with Hypercholesteremia Mother Alive asthma age: 36 diagnosed with Asthma, unspecified Other Alive Siblings: shani 12/10/04 reactive airway, jose de jesus 04/02/10 ? reactive airway. Paternal Grandfather Alive DM, hyp ertension, hyperlipidemia age: 76 diagnosed with Hypertension, Hypercholesteremia, DMII WO CMP NT ST UNCNTR Paternal Grandmother Alive thyroid problems age: 71 Social History Tobacco Use Types Packs/Day Years Used Date Smoking Tobacco: Never Assessed Sex and Gender Information Value Date Recorded Sex Assigned at Not on file Legal Sex Male 6:09 PM EDT Gender Identity Not on file Sexual Orientation Not on file Last Filed Vital Signs Vital Sign Reading Time Taken Comments Blood Pressure 120/70 03/28/2018 11:38 AM EST Pulse 68 01/22/2016 12:00 AM EDT Temperature 37.1 ??C (98.7 ??F) 03/28/2018 11:[address] Respiratory Rate - - Oxygen Saturation 99% 01/22/2016 12:00 AM EDT Inhaled Oxygen Concentration - - Weight 74.8 kg (165 lb) 03/28/2018 11:38 AM EST Height 172.7 cm (5' 8 ) 03/28/2018 11:38 AM EST Body Mass Index 25.09 03/28/2018 11:38 AM EST Plan of Treatment Health Maintenance Due Date Last Done Comments DTaP,Tdap,and Td Vaccines (7 - Td or Tdap) 01/17/2019 01/17/2009, 07/29/2002, 12/15/1999, Additional history exists Influenza Vaccines (#1) 2023 01/19/20 17, 02/10/2016, 12/24/2014, Additional history exists COVID-19 Vaccine ( season) 2023 Hepatitis B Vaccines Completed 09/04/1998, 01/07/1998, 1997 HIB Vaccines Completed 04/28/1999, 05/20, 04/08/1998, Additional history exists IPV Vaccines Completed 07/31/2002, 11/17, 04/08/1998, Additional history exists MMR Vaccines Completed 07/31/2002, 04/28/1999 Varicella Vaccines Completed 12/13/2007, 12/08/1998 Meningococcal Vaccine Completed 12/06/2013, 009 HPV Vaccines Completed 11/06/2015, 11/2014, 12/06/2013 Hepatitis A Vaccines Aged Out No long er eligible based on patient's age to complete this topic Men B Vaccine Aged Out No longer elig ible based on patient's age to complete this topic Pneumococcal Vaccine Aged Out No long er eligible based on patient's age to complete this topic Insurance [facility] Care Teams Log Chain Worker Relationship Specialty Start Date End Date Carlos Cabrera MD PCP - General 08/24/17
--- OUTSIDE RECORDS SUMMARY | 2024-07-17 19:08 | XMS_ITS | Encounter Summary ---
Author Organization [facility] Address [address] [place] [phone] Phone Care Team Providers Care Chronometer Adjuster Name Role Phone Carlos Cabrera MD Primary Care Provider Richard shafer Encounter Details Date Type Department Care Team (Late st Contact Info) Description 06/12/2009 Documentation [facility] [place] [address] [place] [address] Family Medicine, Physician [address] [place] [address] Social History Tobacco Use Types Packs/Day Years [...] on filedocumented in this encounter Care Teams Chronometer Adjuster Relationship Specialty Start Date End Date Carlos Cabrera MD PCP - General 08/24/17 documented as of this encounter
--- OUTSIDE RECORDS SUMMARY | 2024-07-17 19:08 | XMS_ITS | Encounter Summary ---
Author Organization [facility] Address [address] [place] [phone] Phone Care Team Providers Care Beading Installer Name Role Phone Carlos Cabrera MD Primary Care Provider Richard shafer Encounter Details Date Type Department Care Team (Late st Contact Info) Description 05/20/2009 Documentation [facility] [place] Family Medicine [address] [place] [address] Family Medicine, Physician [address] [place] [address] Social History Tobacco Use Types Packs/Day Years [...] on filedocumented in this encounter Care Teams Beading Installer Relationship Specialty Start Date End Date Carlos Cabrera MD PCP - General 08/24/17 documented as of this encounter
[2024-07-17 21:09] VITALS: BP 100/51; PULSE 80; RESP 16; TEMP 36.8; O2SAT 98
[2024-07-17 22:10] VITALS: BP 117/74; PULSE 87; TEMP 36.8
[2024-07-17 22:44] VITALS: BMI 26.6
--- NOTE | 2024-07-17 22:50 | PC.ADMIT ---
Addendum entered by Siena Casanova RN 07/18/24 00:57: Van Pappas is a 28 year old male reported by family [Patsy Pappas, Mother, reported to be HCP.] It is reported that he has a FRANKEL ORDER and CARE team reports him to be schizoaffective bipolar type. He has a history of marijuana and alcohol use and trauma per CARE team. History of IPLOC x3 per CARE team. Patient is not oriented at this time. Patient is known to the CARE team. Patient's mother reports patient had his first substance induced psychotic break at age 21. He is unemployed at this time and spends the majority of his time at home with his mother who reported altered mental status. Patient was BIBA after his HCP mother Patsy Pappas called the [place] police due to his presentation; she reports he was snorting salt and unscrewing doors off at his apartment, and not taking his medications or going to appointments. He is malodorous, unkempt, disheveled and uncooperative and resistant to care. This patient has not been medication compliant with his injection since January per CARE team report. Original Note: Late admission note: This patient arrived to at 2208 and his wristband was changed. The patient would not allow this underwriter to obtain an 02 percentage at that time, but allowed all other vital signs to be obtained. The patient was extremely angry when his safety and skin check was accomplished but complied. The patient refused to answer any questions for this underwriter at that time, refused to fill out a menu, and refused orientation to the unit. This patient refused to discuss influenza vaccine status, alcohol or drug use.
--- NOTE | 2024-07-18 02:50 | PC.NURSE ---
Patient is resting in bed with eyes closed, regular respirations and no distress noted.
--- NOTE | 2024-07-18 04:48 | PC.NURSE ---
Patient is resting in bed with eyes closed and regular respirations. He shows no signs of distress.
[2024-07-18] MEDS: risperiDONE 1 MG TABLET PO (09:48)
--- NOTE | 2024-07-18 10:05 | P.HPPS_ITS ---
HPI Date of Service: 07/18/24 Chief Complaint: Schizoaffective Disorder, bipolar type Sources of Information: patient interviewed, chart reviewed and crisis/core team assessment reviewed HPI Subjective Notes: [place] Warning, Conditional Voluntary and Other Narrative: Patient is a 28-year-old male with history of schizoaffective disorder, bipolar type, history of polysubstance abuse who presents via EMS for manic and delusional behaviors. Patient is a poor historian, lying in bed, not opening his eyes, and offering little information. Initially, patient was talking with the nurse but 1 minute later, as soon as poem writer walked in to talk with patient, he kept his eyes closed and refused to respond at all to poem writer. A little later on on re-approached, patient is willing to briefly engage. He says that he is doing good. On inquiry, he says I have no idea why he is here in the hospital; poem writer shared that his parents felt he was unsafe, disorganized and destroying property which he denies, even though poem writer mentioned that his mother showed pictures of damaging his apartment. Patient refuses to sign in and remains on a 12 B. Patient took risperidone (he initially spit it out but then took it) this morning and says he will keep taking it but refuses the long- acting injectable. he denies any AVH, SI or HI. Patient's mother, Patsy who is also patient's healthcare proxy reported collateral. She says he has not been taking medications consistently has been very disorganized, has destroyed the apartment that she and her own and pay for, including smashing several television sets, multiple cell phones, refrigerators and other appliances and items, taking off all the door in the apartments (she provided pictures); she says he has been disorganized, not showering at all attending to ADLs, acting confused, and doing strange things such as snorting salt... Patient yelling at her, demanding things such as groceries which she buys and which he then proceeds to throwing the trash... pt seen at 1pm on 07/18/24 Past Psychiatric History: Patient's mother reports that in 2017 following cocaine use, patient accidentally overdosed on melatonin taking about 500 mg since he could not sleep. He was having pressured speech, weird behavior and so she took him to [facility] where he was started on Risperdal to good effect. He was discharged and almost immediately stopped taking his medications and started smoking cannabis again daily. In 2018, patient had his 2nd psychiatric hospitalization where he was floridly manic, caring garbage and recycling from the garage to his room, not sleeping, not eating, grandiose themes saying he was going to run for mayor and live on only water, not making sense and rambling. He was again brought to [facility], again started on Risperdal and 2 weeks later discharged. Patient fell into the same pattern of going off medication and smoking cannabis when he was again manic admitted to [facility] in the fall of 2019. Same pattern again until this admission. Mother reports patient had trial of Wellbutrin during which time he did very well and was productive Mother reports patient has history of severe anxiety starting in childhood as well as ADHD. Medical Evaluation Reviewed: Yes [facility] Medical History Hyperbilirubinemia Bipolar 1 disorder Cannabis abuse ADHD Anxiety Family History: Patient's maternal 1st cousin has diagnosed bipolar disorder Maternal side of family has numerous substance abuse issues Social History: Patient lives at home with his supportive mother and father and 2 younger siblings; graduated high school in 2016; played basketball and soccer; some college however has bounced from college to college due to anxiety, ADHD and likely subacute bipolar prodrome. Substance History: History of polysubstance abuse; not clear if patient is currently abusing substances Trauma History: None mentioned- denies hx of violence, says he was brought back to life at [facility] years ago when he holding his breath- Diagnostics Vital Signs (24Hr): Vital Signs - 24 hr 07/17/24 14:32 07/17/24 21:09 07/17/24 22:10 Temperature 98.0 F 98.3 F 98.2 F Pulse Rate 92 80 87 Respiratory Rate 18 16 Blood Pressure 148/86 H 100/51 L 117/74 Pulse Oximetry 98 98 Oxygen Delivery Method Room Air Room Air BMI result Body Mass Index 26.6 Labs 07/17/24 14:49 07/17/24 14:49 Labs: Laboratory Results - last 48 hr 07/17/24 14:49 WBC 6.9 RBC 4.65 Hgb 14.6 Hct 41.4 L MCV 89.0 MCH 31.4 MCHC 35.3 RDW 12.1 Plt Count 260 MPV 10.2 Immature Gran % (Auto) 0.7 H Neut % (Auto) 60.9 Lymph % (Auto) 30.7 [place] % (Auto) 7.0 Eos % (Auto) 0.1 Baso % (Auto) 0.6 Lymph # (Auto) 2.1 [place] # (Auto) 0.5 Eos # (Auto) 0.0 Baso # (Auto) 0.0 Abs Immat Gran (auto) 0.05 H Absolute Neuts (auto) 4.2 Absolute Nucleated RBC 0.000 Nucleated RBC % (auto) 0.0 Sodium 140 Potassium 3.9 Chloride 106 Carbon Dioxide 29 Anion Gap 9 L BUN 16 Creatinine 0.74 Estim Creat Clear Calc 146.3 Estimated GFR > 60 Random Glucose 86 Calcium 9.0 D Total Bilirubin 1.1 H Direct Bilirubin 0.3 AST 39 H ALT 74 H Alkaline Phosphatase 64 Total Protein 7.1 Albumin 4.3 Lipase 12 Ethyl Alcohol < 10 Meds/Allergies Allergies Allergies Allergy/AdvReac Type Severity Reaction Status Date / Time strawberry Allergy Mild Itching Verified 07/17/24 14:35 cefazolin Allergy Unknown Itching Verified 07/17/24 14:35 sulfamethoxazole Allergy Unknown Itching Verified 07/17/24 14:35 [From Bactrim] trimethoprim [From Bactrim] Allergy Unknown Itching Verified 07/17/24 14:35 lorazepam [From Ativan] AdvReac Agitated Verified 07/17/24 14:35 lithium AdvReac Unknown other Uncoded 11/29/23 21:03 Mental Status Exam Mental Status Exam Narrative: Pt is alert and oriented; behavior is intermittently superficially cooperative; can be polite but mostly guarded; patient is not in distress; dressed in casual attire, disheveled, malodorous; mood is described as good and affect blunted; eye contact avoidant; Speech is normal rate, volume and prosody and not pressured; both psychomotor agitation/retardation intermittently present; thought process is goal directed; Thought content is not disclosed but seems to be with suspicious, paranoid ideations; denies any SI/HI. Denies AVH however patient appears internally preoccupied. Patients insight and judgment impaired. Assessment & Plan Assessment & Plan (1) Schizoaffective disorder, bipolar type: Status: Acute Code(s): F25.0 - Schizoaffective disorder, bipolar type (2) ADHD: Status: Chronic Code(s): F90.9 - Attention-deficit hyperactivity disorder, unspecified type Plan HPI: Patient is a 28-year-old male with history of schizoaffective disorder, bipolar type, history of polysubstance abuse who presents via EMS for manic and delusional behaviors. Patient is a poor historian, lying in bed, not opening his eyes, and offering little information. Initially, patient was talking with the nurse but 1 minute later, as soon as poem writer walked in to talk with patient, he kept his eyes closed and refused to respond at all to poem writer. A little later on on re-approached, patient is willing to briefly engage. He says that he is doing good. On inquiry, he says I have no idea why he is here in the hospital; poem writer shared that his parents felt he was unsafe, disorganized and destroying property which he denies, even though poem writer mentioned that his mother showed pictures of damaging his apartment. Patient refuses to sign in and remains on a 12 B. Patient took risperidone (he initially spit it out but then took it) this morning and says he will keep taking it but refuses the long- acting injectable. he denies any AVH, SI or HI. Patient's mother, Patsy who is also patient's healthcare proxy reported collateral. She says he has not been taking medications consistently has been very disorganized, has destroyed the apartment that she and her own and pay for, including smashing several television sets, multiple cell phones, refrigerators and other appliances and items, taking off all the door in the apartments (she provided pictures); she says he has been disorganized, not showering at all attending to ADLs, acting confused, and doing strange things such as snorting salt... Patient yelling at her, demanding things such as groceries which she buys and which he then proceeds to throwing the trash... Formulation/clinical reasoning: Patient has well documented history of schizoaffective disorder, bipolar type. Patient had very similar presentation on his last admission January 2024, but responded well with p.o. Risperdal and then on long-acting Risperdal product Uzedy (also on Wellbutrin XL 150 mg), organized, attending to ADLs, in good behavioral and impulse control and even developed some limited insight, briefly acknowledging that he did have paranoid delusions and auditory hallucinations prior to taking medication... However, patient has a long history of medication non-adherence and decompensation which is again resulting in need for psychiatric hospitalization. On the unit, he is with odd behaviors and malodorous (patient did ask for and ostensibly took a shower but emerged remaining malodorous and with matted hair). Patient is currently taking a low dose of Risperdal (though intermittently refused); however this dose is inadequate, patient does not want medication adjustments and refuses long-acting inectable Risperdal which is essential to sustained function in the community; he has no insight at all and poem writer is convinced that patient will stop taking medications (or take them inadequately) immediately if he were to discharge. Invoke HCP: Patient has a signed healthcare proxy on file. Patient is disorganized and unable to function in the community; he does not have capacity to make medical decisions for himself and so poem writer will invoke this healthcare proxy. Plan: Twelve B Q 15 minute checks INVOKE HCP Continue Risperdal 1 mg b.i.d. (initiated by admitting provider; want to increase dose to 2 mg b.i.d. but not sure patient will take it) want to restart Risperdaly Uzedy 100 mg q28 days (or higher dose for longer duration) Will hold off restarting Wellbutrin given patient has some manic behaviors and on inadequate risperidone Past med trials: Vraylar: Did not seem to work Patient educated on: diagnosis and medication risk/benefits Informed Consent: does not understand Reason for continued inpatient stay Substantial Risk for: inability to function Statement Statement: I have reviewed the history and physical and performed a pertinent examination on my patient. No changes have occurred unless specified. If the History and Physical was not performed prior to admission, the Hospitalist's service will be consulted for completing the admission physical. Time Spent With Patient Time: Total time managing care of this patient today ____ minutes.
--- NOTE | 2024-07-18 23:16 | PC.NURSE ---
Pt?s room seemed malodorous, extending into common areas. Other patients complained of the odor. Pt?s toilet appeared filled with stool and paper towels. There appeared to be vomit of thick consistency in three locations. There was vomit on the floor in the bathroom and on either side of the bed in the bedroom. Pt?s communication appeared limited. Pt did not answer questions regarding the clogged toilet.
--- NOTE | 2024-07-19 06:47 | PC.NURSE ---
Around 0330 patient vomited a small amount of partially digested food and also had a large bowel movement. He went back to bed and has been sleeping in [facility].
[2024-07-19] MEDS: risperiDONE 1 MG TABLET PO ×2 (09:26→20:27)
[2024-07-19] MEDS: Nicotine Polacrilex 2 MG GUM 4 MG BUCCAL (18:08)
[2024-07-19 20:00] VITALS: BP 104/57; PULSE 70; RESP 16; TEMP 36.7; O2SAT 96
[2024-07-20] MEDS: Nicotine Polacrilex 2 MG GUM 4 MG BUCCAL ×6 (06:28→20:41)
[2024-07-20 08:00] VITALS: BP 127/73; PULSE 83; RESP 16; TEMP 36.8; O2SAT 96
[2024-07-20 08:16] LABS: Estimated Average Glucose 91 mg/dL; Hemoglobin A1C 127.5035 umol/L; Hemoglobin A1c % 4.8 % (<6.0); Total Hemoglobin (HGBA1C) 4348.0634 umol/L
[2024-07-20 08:21] LABS: Cholesterol 208 mg/dL (<200); HDL Cholesterol 57 mg/dL (>40); LDL Cholesterol Calculated 126 mg/dL (<100); Magnesium 2.4 mg/dL (1.6-2.6); Triglycerides 125 mg/dL (<150)
[2024-07-20 08:33] LABS: Free T4 (Free Thyroxine) 0.99 ng/dL (0.71-1.85); Thyroid Stimulating Hormone 1.44 uIU/mL (0.32-4.0)
[2024-07-20] MEDS: risperiDONE 1 MG TABLET PO (08:49)
[2024-07-20 08:50] LABS: Folate 12.2 ng/mL (> or = 4.0); Vitamin B12 415 pg/mL (200-900)
--- NOTE | 2024-07-20 09:57 | HO.PSYCHPN ---
Subjective Subjective Date of Service: 07/19/24 Reason For Visit: Schizoaffective Disorder, bipolar type Interim History: late entry note for pt seen on 07/19/24; discussed with team; met with HCP mother Patient difficult with which to engage and denies all psychiatric symptoms. He says I want to get off medication... Mental Retardation Nurse shares his family's concerns about his behaviors but patient tells inspector automatic typewriter I was doing good at home... Patient talking to inspector automatic typewriter holding his hand in front of his mouth. At 1 point patient stopped talking to inspector automatic typewriter completely, keeping his eyes closed but then responded later. Patient does not want to stay in the hospital and Mental Retardation Nurse informed patient of involuntary commitment and invoking healthcare proxy. Patient's mother present who gave more collateral. She says that after his last discharge, he refused to get long-acting injectable and would not take medication. In March he took a low dose of Risperdal for 2 days but then not again until a couple of weeks later. At that time he took Risperdal 2 mg b.i.d. for 10 days and she reports it was the best days ever... That patient was doing well. However he stopped medication and again became disorganized. She says that patient has destroyed the apartment and shows inspector automatic typewriter multiple pictures of broken televisions, other furniture, flipping over the refrigerator... Patient opened all the drawers throughout the apartment for some reason leaving them open; took off all the anterior doors off the hinges; she says that he broke the furnace somehow and the apartment complex was without heat; now the upstairs Renter is now moving out because does not want to have to deal with the heat going off. She says he took his bed out and put it in the yd; whenever she buys him food he immediately deems it into the trash. She said over the past couple weeks patient has been increasingly agitated and aggressive, once posturing aggressively towards his father; patient angrily threatened his mom yelling leave this house or I'll push you again... , yelling in her face with spittle coming out of his mouth.. Mother says she is scared, felt threatened and left. She said she called the police who know the family; she reports that patient postured aggressively towards 1 of the police officers but because the officer knew him, told his partner to stand down and they thus brought him to the hospital Mental Status Exam Mental Status Exam Narrative: Pt is alert and oriented; behavior is superficially cooperative, odd; can be polite but mostly guarded; patient is not in distress; dressed in casual attire, disheveled, malodorous; mood is described as good and affect blunted; eye contact avoidant; Speech is normal rate, volume and prosody and not pressured; both psychomotor agitation/retardation intermittently present; thought process is goal directed; Thought content is not disclosed but seems to be with suspicious, paranoid ideations; denies any SI/HI. Denies AVH however patient appears internally preoccupied. Patients insight and judgment impaired. Diagnostics Vital Signs (24Hr): Vital Signs - 24 hr 07/19/24 20:00 07/20/24 08:00 Temperature 98.1 F 98.3 F Pulse Rate 70 83 Respiratory Rate 16 16 Blood Pressure 104/57 L 127/73 Pulse Oximetry 96 96 Oxygen Delivery Method Room Air Room Air BMI result Body Mass Index 26.6 Labs 07/17/24 14:49 07/17/24 14:49 Labs: Laboratory Results - last 48 hr 07/20/24 07:38 Estimat Average Glucose 91 Hemoglobin A1c % 4.8 Magnesium 2.4 Triglycerides 125 Cholesterol 208 H LDL Cholesterol, Calc 126 H HDL Cholesterol 57 Vitamin B12 415 Folate 12.2 TSH 1.44 Free T4 0.99 Medications Medications Current Medications Acetaminophen (Acetaminophen 325 Mg Tablet) 650 mg PO Q6H PRN PRN Reason: Headache/Pain, Scale 1-10 Al Hydroxide/Mg Hydroxide (Magnesium Hydrox/Alum Hydrox 30 Ml Oral.Susp) 30 ml PO Q6H PRN PRN Reason: Heartburn/Nausea Clonidine HCl (Clonidine Hcl 0.1 Mg Tablet) 0.1 mg PO Q4H PRN; Protocol PRN Reason: Anxiety Hydroxyzine HCl (Hydroxyzine Hcl 25 Mg Tablet) 25 mg PO Q6H PRN PRN Reason: mild anxiety Magnesium Hydroxide (Milk Of Magnesia 30 Ml Oral.Susp) 30 ml PO DAILY PRN PRN Reason: Constipation Nicotine Polacrilex (Nicotine Polacrilex 2 Mg Gum) 4 mg BUCCAL Q2H PRN PRN Reason: Nicotine Cravings Last Admin: 07/20/24 06:28 Dose: 4 mg Olanzapine (Olanzapine 5 Mg Tablet) 5 mg PO Q4H PRN PRN Reason: severe agitation Risperidone (Risperidone 1 Mg Tablet) 1 mg PO BID JESSICA Last Admin: 07/20/24 08:49 Dose: 1 mg Trazodone HCl (Trazodone Hcl 50 Mg Tablet) 50 mg PO BEDTIME MRX1 PRN PRN Reason: Insomnia Allergies Allergies Allergy/AdvReac Type Severity Reaction Status Date / Time strawberry Allergy Mild Itching Verified 07/17/24 14:35 cefazolin Allergy Unknown Itching Verified 07/17/24 14:35 sulfamethoxazole Allergy Unknown Itching Verified 07/17/24 14:35 [From Bactrim] trimethoprim [From Bactrim] Allergy Unknown Itching Verified 07/17/24 14:35 lorazepam [From Ativan] AdvReac Agitated Verified 07/17/24 14:35 lithium AdvReac Unknown other Uncoded 11/29/23 21:03 Assessment & Plan Assessment & Plan (1) Schizoaffective disorder, bipolar type: Status: Acute Code(s): F25.0 - Schizoaffective disorder, bipolar type (2) Anxiety: Status: Chronic Code(s): F41.9 - Anxiety disorder, unspecified Plan HPI: Patient is a 28-year-old male with history of schizoaffective disorder, bipolar type, history of polysubstance abuse who presents via EMS for manic and delusional behaviors. Patient is a poor historian, lying in bed, not opening his eyes, and offering little information. Initially, patient was talking with the nurse but 1 minute later, as soon as inspector automatic typewriter walked in to talk with patient, he kept his eyes closed and refused to respond at all to inspector automatic typewriter. A little later on on re-approached, patient is willing to briefly engage. He says that he is doing good. On inquiry, he says I have no idea why he is here in the hospital; inspector automatic typewriter shared that his parents felt he was unsafe, disorganized and destroying property which he denies, even though inspector automatic typewriter mentioned that his mother showed pictures of damaging his apartment. Patient refuses to sign in and remains on a 12 B. Patient took risperidone (he initially spit it out but then took it) this morning and says he will keep taking it but refuses the long-acting injectable. he denies any AVH, SI or HI. Patient's mother, Patsy who is also patient's healthcare proxy reported collateral. She says he has not been taking medications consistently has been very disorganized, has destroyed the apartment that she and her own and pay for, including smashing several television sets, multiple cell phones, refrigerators and other appliances and items, taking off all the door in the apartments (she provided pictures); she says he has been disorganized, not showering at all attending to ADLs, acting confused, and doing strange things such as snorting salt... Patient yelling at her, demanding things such as groceries which she buys and which he then proceeds to throwing the trash... Formulation/clinical reasoning: Patient has well documented history of schizoaffective disorder, bipolar type. Patient had very similar presentation on his last admission January 2024, but responded well with p.o. Risperdal and then on long-acting Risperdal product Uzedy (also on Wellbutrin XL 150 mg), organized, attending to ADLs, in good behavioral and impulse control and even developed some limited insight, briefly acknowledging that he did have paranoid delusions and auditory hallucinations prior to taking medication... However, patient has a long history of medication non-adherence and decompensation which is again resulting in need for psychiatric hospitalization. On the unit, he is with odd behaviors and malodorous (patient did ask for and ostensibly took a shower but emerged remaining malodorous and with matted hair). Patient is currently taking a low dose of Risperdal (though intermittently refused); however this dose is inadequate, patient does not want medication adjustments and refuses long-acting inectable Risperdal which is essential to sustained function in the community; he has no insight at all and inspector automatic typewriter is convinced that patient will stop taking medications (or take them inadequately) immediately if he were to discharge. Invoke HCP: Patient has a signed healthcare proxy on file. Patient is disorganized and unable to function in the community; he does not have capacity to make medical decisions for himself and so inspector automatic typewriter will invoke this healthcare proxy. Hospital course: / Patient difficult with which to engage and denies all psychiatric symptoms. He says I want to get off medication... Mental Retardation Nurse shares his family's concerns about his behaviors but patient tells inspector automatic typewriter I was doing good at home... Patient talking to inspector automatic typewriter holding his hand in front of his mouth. At 1 point patient stopped talking to inspector automatic typewriter completely, keeping his eyes closed but then responded later. Patient does not want to stay in the hospital and Mental Retardation Nurse informed patient of involuntary commitment and invoking healthcare proxy. Patient's mother present who gave more collateral. She says that after his last discharge, he refused to get long-acting injectable and would not take medication. In March he took a low dose of Risperdal for 2 days but then not again until a couple of weeks later. At that time he took Risperdal 2 mg b.i.d. for 10 days and she reports it was the best days ever... That patient was doing well. However he stopped medication and again became disorganized. She says that patient has destroyed the apartment and shows inspector automatic typewriter multiple pictures of broken televisions, other furniture, flipping over the refrigerator... Patient opened all the drawers throughout the apartment for some reason leaving them open; took off all the anterior doors off the hinges; she says that he broke the furnace somehow and the apartment complex was without heat; now the upstairs Renter is now moving out because does not want to have to deal with the heat going off. She says he took his bed out and put it in the yd; whenever she buys him food he immediately deems it into the trash. She said over the past couple weeks patient has been increasingly agitated and aggressive, once posturing aggressively towards his father; patient angrily threatened his mom yelling leave this house or I'll push you again... , yelling in her face with spittle coming out of his mouth.. Mother says she is scared, felt threatened and left. She said she called the police who know the family; she reports that patient postured aggressively towards 1 of the police officers but because the officer knew him, told his partner to stand down and they thus brought him to the hospital Plan: Twelve B Q 15 minute checks INVOKE HCP Continue Risperdal 1 mg b.i.d. (initiated by admitting provider; want to increase dose to 2 mg b.i.d. but not sure patient will take it) want to restart Risperdaly Uzedy 100 mg q28 days (or higher dose for longer duration) Will hold off restarting Wellbutrin given patient has some manic behaviors and on inadequate risperidone Past med trials: Vraylar: Did not seem to work Patient educated on: diagnosis and medication risk/benefits Informed Consent: does not understand Reason for continued inpatient stay Substantial Risk for: inability to function Time Spent With Patient Time: Total time managing care of this patient today ____ minutes.
--- NOTE | 2024-07-20 12:17 | HO.PSYCHPN ---
Subjective Subjective Date of Service: 07/20/24 Reason For Visit: Schizoaffective Disorder, bipolar type Interim History: met with patient; discussed with team pt remains psychotic, talking to himself; patient is difficult with which to engage. Nursing observing patient cheeking Risperdal and spitting out the garbage. Termite Exterminator discussed taking Risperdal with patient who has some ambivalence and told grant writer he would take it but then that he did not want it and needed something that would help [him] both sleep and drive... He then said he would take it even it increased dose of 2 mg b.i.d. Patient remains with bizarre behaviors. Patient does not look at grant writer when talking; during conversation he will intermittently stop talking in the middle of conversation, stare off, sometimes muttering to himself and then restart talking... Patient lining up sugar packets and cards on his bed in specific ways; in the milieu, grant writer observed patient jumping on a chair and hopping around in the kitchen Mental Status Exam Mental Status Exam Narrative: Pt is alert and oriented; behavior is superficially cooperative and polite;, odd behaviors, talking to himself; he remains guarded; patient is not in distress; dressed in casual attire, twisting hair into pigtails, disheveled, malodorous; mood is described as good and affect blunted; eye contact avoidant; Speech is with latency and thought blocking; when talking normal rate, volume and prosody and not pressured; both psychomotor agitation/retardation intermittently present; thought process is goal directed but marred and distracted by thought blocking; Thought content is not disclosed but seems to be with delusional ideations; denies any SI/HI. Denies AVH however patient is internally preoccupied and talking to himself. Patients insight and judgment impaired. Diagnostics Vital Signs (24Hr): Vital Signs - 24 hr 07/19/24 20:00 07/20/24 08:00 Temperature 98.1 F 98.3 F Pulse Rate 70 83 Respiratory Rate 16 16 Blood Pressure 104/57 L 127/73 Pulse Oximetry 96 96 Oxygen Delivery Method Room Air Room Air BMI result Body Mass Index 26.6 Labs 07/17/24 14:49 07/17/24 14:49 Labs: Laboratory Results - last 48 hr 07/20/24 07:38 Estimat Average Glucose 91 Hemoglobin A1c % 4.8 Magnesium 2.4 Triglycerides 125 Cholesterol 208 H LDL Cholesterol, Calc 126 H HDL Cholesterol 57 Vitamin B12 415 Folate 12.2 TSH 1.44 Free T4 0.99 Medications Medications Current Medications Acetaminophen (Acetaminophen 325 Mg Tablet) 650 mg PO Q6H PRN PRN Reason: Headache/Pain, Scale 1-10 Al Hydroxide/Mg Hydroxide (Magnesium Hydrox/Alum Hydrox 30 Ml Oral.Susp) 30 ml PO Q6H PRN PRN Reason: Heartburn/Nausea Clonidine HCl (Clonidine Hcl 0.1 Mg Tablet) 0.1 mg PO Q4H PRN; Protocol PRN Reason: Anxiety Hydroxyzine HCl (Hydroxyzine Hcl 25 Mg Tablet) 25 mg PO Q6H PRN PRN Reason: mild anxiety Magnesium Hydroxide (Milk Of Magnesia 30 Ml Oral.Susp) 30 ml PO DAILY PRN PRN Reason: Constipation Nicotine Polacrilex (Nicotine Polacrilex 2 Mg Gum) 4 mg BUCCAL Q2H PRN PRN Reason: Nicotine Cravings Last Admin: 07/20/24 10:33 Dose: 4 mg Olanzapine (Olanzapine 5 Mg Tablet) 5 mg PO Q4H PRN PRN Reason: severe agitation Risperidone (Risperidone 1 Mg Tablet) 1 mg PO BID JESSICA Last Admin: 07/20/24 08:49 Dose: 1 mg Trazodone HCl (Trazodone Hcl 50 Mg Tablet) 50 mg PO BEDTIME MRX1 PRN PRN Reason: Insomnia Allergies Allergies Allergy/AdvReac Type Severity Reaction Status Date / Time strawberry Allergy Mild Itching Verified 07/17/24 14:35 cefazolin Allergy Unknown Itching Verified 07/17/24 14:35 sulfamethoxazole Allergy Unknown Itching Verified 07/17/24 14:35 [From Bactrim] trimethoprim [From Bactrim] Allergy Unknown Itching Verified 07/17/24 14:35 lorazepam [From Ativan] AdvReac Agitated Verified 07/17/24 14:35 lithium AdvReac Unknown other Uncoded 11/29/23 21:03 Assessment & Plan Assessment & Plan (1) Schizoaffective disorder, bipolar type: Status: Acute Code(s): F25.0 - Schizoaffective disorder, bipolar type (2) Anxiety: Status: Chronic Code(s): F41.9 - Anxiety disorder, unspecified Plan HPI: Patient is a 28-year-old male with history of schizoaffective disorder, bipolar type, history of polysubstance abuse who presents via EMS for manic and delusional behaviors. Patient is a poor historian, lying in bed, not opening his eyes, and offering little information. Initially, patient was talking with the nurse but 1 minute later, as soon as grant writer walked in to talk with patient, he kept his eyes closed and refused to respond at all to grant writer. A little later on on re-approached, patient is willing to briefly engage. He says that he is doing good. On inquiry, he says I have no idea why he is here in the hospital; grant writer shared that his parents felt he was unsafe, disorganized and destroying property which he denies, even though grant writer mentioned that his mother showed pictures of damaging his apartment. Patient refuses to sign in and remains on a 12 B. Patient took risperidone (he initially spit it out but then took it) this morning and says he will keep taking it but refuses the long-acting injectable. he denies any AVH, SI or HI. Patient's mother, Patsy who is also patient's healthcare proxy reported collateral. She says he has not been taking medications consistently has been very disorganized, has destroyed the apartment that she and her own and pay for, including smashing several television sets, multiple cell phones, refrigerators and other appliances and items, taking off all the door in the apartments (she provided pictures); she says he has been disorganized, not showering at all attending to ADLs, acting confused, and doing strange things such as snorting salt... Patient yelling at her, demanding things such as groceries which she buys and which he then proceeds to throwing the trash... Formulation/clinical reasoning: Patient has well documented history of schizoaffective disorder, bipolar type. Patient had very similar presentation on his last admission January 2024, but responded well with p.o. Risperdal and then on long-acting Risperdal product Uzedy (also on Wellbutrin XL 150 mg), organized, attending to ADLs, in good behavioral and impulse control and even developed some limited insight, briefly acknowledging that he did have paranoid delusions and auditory hallucinations prior to taking medication... However, patient has a long history of medication non-adherence and decompensation which is again resulting in need for psychiatric hospitalization. On the unit, he is with odd behaviors and malodorous (patient did ask for and ostensibly took a shower but emerged remaining malodorous and with matted hair). Patient is currently taking a low dose of Risperdal (though intermittently refused); however this dose is inadequate, patient does not want medication adjustments and refuses long-acting inectable Risperdal which is essential to sustained function in the community; he has no insight at all and grant writer is convinced that patient will stop taking medications (or take them inadequately) immediately if he were to discharge. Invoke HCP: Patient has a signed healthcare proxy on file. Patient is disorganized and unable to function in the community; he does not have capacity to make medical decisions for himself and so grant writer will invoke this healthcare proxy. Hospital course: 07/19 Patient difficult with which to engage and denies all psychiatric symptoms. He says I want to get off medication... Termite Exterminator shares his family's concerns about his behaviors but patient tells grant writer I was doing good at home... Patient talking to grant writer holding his hand in front of his mouth. At 1 point patient stopped talking to grant writer completely, keeping his eyes closed but then responded later. Patient does not want to stay in the hospital and Termite Exterminator informed patient of involuntary commitment and invoking healthcare proxy. Patient's mother present who gave more collateral. She says that after his last discharge, he refused to get long-acting injectable and would not take medication. In March he took a low dose of Risperdal for 2 days but then not again until a couple of weeks later. At that time he took Risperdal 2 mg b.i.d. for 10 days and she reports it was the best days ever... That patient was doing well. However he stopped medication and again became disorganized. She says that patient has destroyed the apartment and shows grant writer multiple pictures of broken televisions, other furniture, flipping over the refrigerator... Patient opened all the drawers throughout the apartment for some reason leaving them open; took off all the anterior doors off the hinges; she says that he broke the furnace somehow and the apartment complex was without heat; now the upstairs Renter is now moving out because does not want to have to deal with the heat going off. She says he took his bed out and put it in the yd; whenever she buys him food he immediately deems it into the trash. She said over the past couple weeks patient has been increasingly agitated and aggressive, once posturing aggressively towards his father; patient angrily threatened his mom yelling leave this house or I'll push you again... , yelling in her face with spittle coming out of his mouth.. Mother says she is scared, felt threatened and left. She said she called the police who know the family; she reports that patient postured aggressively towards 1 of the police officers but because the officer knew him, told his partner to stand down and they thus brought him to the hospital 4/ pt remains psychotic, talking to himself; patient is difficult with which to engage. Nursing observing patient cheeking Risperdal and spitting out the garbage. Termite Exterminator discussed taking Risperdal with patient who has some ambivalence and told grant writer he would take it but then that he did not want it and needed something that would help [him] both sleep and drive... He then said he would take it even it increased dose of 2 mg b.i.d. -Patient remains with bizarre behaviors. Patient does not look at grant writer when talking; during conversation he will intermittently stop talking in the middle of conversation, stare off, sometimes muttering to himself and then restart talking... Patient lining up sugar packets and cards on his bed in specific ways; in the milieu, grant writer observed patient jumping on a chair and hopping around in the kitchen Plan: Twelve B Q 15 minute checks INVOKE HCP File for affirmation of healthcare proxy (involuntary commitment) since patient remains without insight Increase to Risperdal 2 mg b.i.d. (pt stabilized on this dose in past) want to restart Risperdaly Uzedy 100 mg q28 days (or higher dose for longer duration) Will hold off restarting Wellbutrin given patient has some manic behaviors and on inadequate risperidone Past med trials: Vraylar: Did not seem to work Patient educated on: diagnosis and medication risk/benefits Informed Consent: does not understand Reason for continued inpatient stay Substantial Risk for: inability to function Time Spent With Patient Time: Total time managing care of this patient today ____ minutes.
[2024-07-20 20:00] VITALS: BP 138/74; PULSE 94; RESP 16; TEMP 36.8; O2SAT 98
[2024-07-20] MEDS: risperiDONE 2 MG TABLET PO (21:46)
[2024-07-20] MEDS: traZODone HCL 50 MG TABLET PO (22:50)
--- NOTE | 2024-07-21 00:34 | PC.NURSE ---
He difficult with meds, he requested for PRN Atarax and tried to cheek it but was immediately stop and meds wasted by RN.
[2024-07-21] MEDS: hydrOXYzine HCL 25 MG TABLET PO ×2 (06:19→13:24)
[2024-07-21 07:56] VITALS: BP 129/74; PULSE 91; TEMP 36.7; O2SAT 98
[2024-07-21] MEDS: risperiDONE 2 MG TABLET PO (08:04)
[2024-07-21] MEDS: Nicotine Polacrilex 2 MG GUM 4 MG BUCCAL (08:05)
[2024-07-21 10:50] VITALS: BP 124/68
[2024-07-21] MEDS: cloNIDine HCL 0.1 MG TABLET PO (10:50)
--- NOTE | 2024-07-21 11:38 | HO.PSYCHPN ---
Subjective Subjective Date of Service: 07/21/24 Reason For Visit: Schizoaffective Disorder, bipolar type Interim History: Met with patient; discussed with team Nursing continue to observe patient cheeking Risperdal than spitting it out. Remains difficult with which to engage and will sometimes not respond to technical report writer at all. Remains with odd, behaviors and internally preoccupied Mental Status Exam Mental Status Exam Narrative: Pt is alert and oriented; behavior is superficially cooperative and polite;, odd behaviors, talking to himself; he remains guarded; patient is not in distress; dressed in casual attire, twisting hair into pigtails, disheveled, malodorous; mood is described as good and affect blunted; eye contact avoidant; Speech is with latency and thought blocking; when talking normal rate, volume and prosody and not pressured; both psychomotor agitation/retardation intermittently present; thought process is goal directed but marred and distracted by thought blocking; Thought content is not disclosed but seems to be with delusional ideations; denies any SI/HI. Denies AVH however patient is internally preoccupied and talking to himself. Patients insight and judgment impaired. Diagnostics Vital Signs (24Hr): Vital Signs - 24 hr 07/20/24 20:00 07/21/24 07:56 07/21/24 10:50 Temperature 98.2 F 98.1 F Pulse Rate 94 91 Respiratory Rate 16 Blood Pressure 138/74 129/74 124/68 Pulse Oximetry 98 98 Oxygen Delivery Method Room Air Room Air BMI result Body Mass Index 26.6 Labs 07/17/24 14:49 07/17/24 14:49 Labs: Laboratory Results - last 48 hr 07/20/24 07:38 Estimat Average Glucose 91 Hemoglobin A1c % 4.8 Magnesium 2.4 Triglycerides 125 Cholesterol 208 H LDL Cholesterol, Calc 126 H HDL Cholesterol 57 Vitamin B12 415 Folate 12.2 TSH 1.44 Free T4 0.99 Medications Medications Current Medications Acetaminophen (Acetaminophen 325 Mg Tablet) 650 mg PO Q6H PRN PRN Reason: Headache/Pain, Scale 1-10 Al Hydroxide/Mg Hydroxide (Magnesium Hydrox/Alum Hydrox 30 Ml Oral.Susp) 30 ml PO Q6H PRN PRN Reason: Heartburn/Nausea Clonidine HCl (Clonidine Hcl 0.1 Mg Tablet) 0.1 mg PO Q4H PRN; Protocol PRN Reason: Anxiety Last Admin: 07/21/24 10:50 Dose: 0.1 mg Hydroxyzine HCl (Hydroxyzine Hcl 25 Mg Tablet) 25 mg PO Q6H PRN PRN Reason: mild anxiety Last Admin: 07/21/24 06:19 Dose: 25 mg Magnesium Hydroxide (Milk Of Magnesia 30 Ml Oral.Susp) 30 ml PO DAILY PRN PRN Reason: Constipation Nicotine Polacrilex (Nicotine Polacrilex 2 Mg Gum) 4 mg BUCCAL Q2H PRN PRN Reason: Nicotine Cravings Last Admin: 07/21/24 08:05 Dose: 4 mg Olanzapine (Olanzapine 5 Mg Tablet) 5 mg PO Q4H PRN PRN Reason: severe agitation Risperidone (Risperidone 2 Mg Tablet) 2 mg PO BID JESSICA Last Admin: 07/21/24 08:04 Dose: 2 mg Trazodone HCl (Trazodone Hcl 50 Mg Tablet) 50 mg PO BEDTIME MRX1 PRN PRN Reason: Insomnia Last Admin: 07/20/24 22:50 Dose: 50 mg Allergies Allergies Allergy/AdvReac Type Severity Reaction Status Date / Time strawberry Allergy Mild Itching Verified 07/17/24 14:35 cefazolin Allergy Unknown Itching Verified 07/17/24 14:35 sulfamethoxazole Allergy Unknown Itching Verified 07/17/24 14:35 [From Bactrim] trimethoprim [From Bactrim] Allergy Unknown Itching Verified 07/17/24 14:35 lorazepam [From Ativan] AdvReac Agitated Verified 07/17/24 14:35 lithium AdvReac Unknown other Uncoded 11/29/23 21:03 Assessment & Plan Assessment & Plan (1) Schizoaffective disorder, bipolar type: Status: Acute Code(s): F25.0 - Schizoaffective disorder, bipolar type (2) Anxiety: Status: Chronic Code(s): F41.9 - Anxiety disorder, unspecified Plan HPI: Patient is a 28-year-old male with history of schizoaffective disorder, bipolar type, history of polysubstance abuse who presents via EMS for manic and delusional behaviors. Patient is a poor historian, lying in bed, not opening his eyes, and offering little information. Initially, patient was talking with the nurse but 1 minute later, as soon as technical report writer walked in to talk with patient, he kept his eyes closed and refused to respond at all to technical report writer. A little later on on re-approached, patient is willing to briefly engage. He says that he is doing good. On inquiry, he says I have no idea why he is here in the hospital; technical report writer shared that his parents felt he was unsafe, disorganized and destroying property which he denies, even though technical report writer mentioned that his mother showed pictures of damaging his apartment. Patient refuses to sign in and remains on a 12 B. Patient took risperidone (he initially spit it out but then took it) this morning and says he will keep taking it but refuses the long-acting injectable. he denies any AVH, SI or HI. Patient's mother, Patsy who is also patient's healthcare proxy reported collateral. She says he has not been taking medications consistently has been very disorganized, has destroyed the apartment that she and her own and pay for, including smashing several television sets, multiple cell phones, refrigerators and other appliances and items, taking off all the door in the apartments (she provided pictures); she says he has been disorganized, not showering at all attending to ADLs, acting confused, and doing strange things such as snorting salt... Patient yelling at her, demanding things such as groceries which she buys and which he then proceeds to throwing the trash... Formulation/clinical reasoning: Patient has well documented history of schizoaffective disorder, bipolar type. Patient had very similar presentation on his last admission January 2024, but responded well with p.o. Risperdal and then on long-acting Risperdal product Uzedy (also on Wellbutrin XL 150 mg), organized, attending to ADLs, in good behavioral and impulse control and even developed some limited insight, briefly acknowledging that he did have paranoid delusions and auditory hallucinations prior to taking medication... However, patient has a long history of medication non-adherence and decompensation which is again resulting in need for psychiatric hospitalization. On the unit, he is with odd behaviors and malodorous (patient did ask for and ostensibly took a shower but emerged remaining malodorous and with matted hair). Patient is currently taking a low dose of Risperdal (though intermittently refused); however this dose is inadequate, patient does not want medication adjustments and refuses long-acting inectable Risperdal which is essential to sustained function in the community; he has no insight at all and technical report writer is convinced that patient will stop taking medications (or take them inadequately) immediately if he were to discharge. Invoke HCP: Patient has a signed healthcare proxy on file. Patient is disorganized and unable to function in the community; he does not have capacity to make medical decisions for himself and so technical report writer will invoke this healthcare proxy. Hospital course: 07/19 Patient difficult with which to engage and denies all psychiatric symptoms. He says I want to get off medication... Recycle Worker shares his family's concerns about his behaviors but patient tells technical report writer I was doing good at home... Patient talking to technical report writer holding his hand in front of his mouth. At 1 point patient stopped talking to technical report writer completely, keeping his eyes closed but then responded later. Patient does not want to stay in the hospital and Recycle Worker informed patient of involuntary commitment and invoking healthcare proxy. Patient's mother present who gave more collateral. She says that after his last discharge, he refused to get long-acting injectable and would not take medication. In March he took a low dose of Risperdal for 2 days but then not again until a couple of weeks later. At that time he took Risperdal 2 mg b.i.d. for 10 days and she reports it was the best days ever... That patient was doing well. However he stopped medication and again became disorganized. She says that patient has destroyed the apartment and shows technical report writer multiple pictures of broken televisions, other furniture, flipping over the refrigerator... Patient opened all the drawers throughout the apartment for some reason leaving them open; took off all the anterior doors off the hinges; she says that he broke the furnace somehow and the apartment complex was without heat; now the upstairs Renter is now moving out because does not want to have to deal with the heat going off. She says he took his bed out and put it in the yd; whenever she buys him food he immediately deems it into the trash. She said over the past couple weeks patient has been increasingly agitated and aggressive, once posturing aggressively towards his father; patient angrily threatened his mom yelling leave this house or I'll push you again... , yelling in her face with spittle coming out of his mouth.. Mother says she is scared, felt threatened and left. She said she called the police who know the family; she reports that patient postured aggressively towards 1 of the police officers but because the officer knew him, told his partner to stand down and they thus brought him to the hospital 07/20 pt remains psychotic, talking to himself; patient is difficult with which to engage. Nursing observing patient cheeking Risperdal and spitting out the garbage. Recycle Worker discussed taking Risperdal with patient who has some ambivalence and told technical report writer he would take it but then that he did not want it and needed something that would help [him] both sleep and drive... He then said he would take it even it increased dose of 2 mg b.i.d. -Patient remains with bizarre behaviors. Patient does not look at technical report writer when talking; during conversation he will intermittently stop talking in the middle of conversation, stare off, sometimes muttering to himself and then restart talking... Patient lining up sugar packets and cards on his bed in specific ways; in the milieu, technical report writer observed patient jumping on a chair and hopping around in the kitchen 07/21 Nursing continue to observe patient cheeking Risperdal than spitting it out. Remains difficult with which to engage and will sometimes not respond to technical report writer at all. Remains with odd, behaviors and internally preoccupied -switch to liquid Risperdal Plan: Twelve B Q 15 minute checks INVOKE HCP File for affirmation of healthcare proxy (involuntary commitment) since patient remains without insight Switch to liquid Risperdal 2 mg b.i.d. since patient cheeking and spitting out pills (pt stabilized on this dose in past) want to restart Risperdaly Uzedy 100 mg q28 days (or higher dose for longer duration) Will hold off restarting Wellbutrin given patient has some manic behaviors and on inadequate risperidone Past med trials: Vraylar: Did not seem to work Patient educated on: diagnosis and medication risk/benefits Informed Consent: does not understand Reason for continued inpatient stay Substantial Risk for: inability to function Time Spent With Patient Time: Total time managing care of this patient today ____ minutes.
--- NOTE | 2024-07-21 22:00 | PC.NURSE ---
Pt refused HS Risperidone 2mg delvis at 2135.
[2024-07-22 07:56] VITALS: BP 112/80; PULSE 89; TEMP 36.3; O2SAT 99
[2024-07-22] MEDS: risperiDONE Oral Sol 1 MG/ML SOLUTION 2 MG PO ×2 (08:53→20:49)
[2024-07-22] MEDS: Nicotine Polacrilex 2 MG GUM 4 MG BUCCAL (08:54)
[2024-07-22 13:11] VITALS: BP 127/64
[2024-07-22] MEDS: cloNIDine HCL 0.1 MG TABLET PO (13:11)
--- NOTE | 2024-07-22 14:25 | P.PNPSI_ITS ---
Subjective Subjective Date of Service: 07/22/24 Reason For Visit: Schizoaffective Disorder, bipolar type Interim History: Met with patient; discussed with team Patient refused liquid Risperdal last night but took it this morning. Patient tells check writer salesperson he will keep taking the Risperdal, since he likes the taste of the liquid Risperdal. Patient remains with disorganized behaviors; patient laughing out loud. Bioengineer observed patient going into the kitchen, taking something out of the refrigerator, sitting down in a chair and waiting a few sec and then putting it back in the refrigerator; patient would then going to his room, run around his bed and then back into the kitchen to repeat the same behavior. Mental Status Exam Mental Status Exam Narrative: Pt is alert and oriented; behavior is superficially cooperative and polite;, odd behaviors, talking to himself; he remains guarded; patient is not in distress; dressed in casual attire, twisting hair into pigtails, disheveled, malodorous; mood is described as good and affect blunted; eye contact avoidant; Speech is with latency and thought blocking; when talking normal rate, volume and prosody and not pressured; both psychomotor agitation/retardation intermittently present; thought process is goal directed but marred and distracted by thought blocking; Thought content is not disclosed but seems to be with delusional ideations; denies any SI/HI. Denies AVH however patient is internally preoccupied and talking to himself. Patients insight and judgment impaired. Diagnostics Vital Signs (24Hr): Vital Signs - 24 hr 07/22/24 07:56 07/22/24 13:11 Temperature 97.4 F Pulse Rate 89 Blood Pressure 112/80 127/64 Pulse Oximetry 99 Oxygen Delivery Method Room Air BMI result Body Mass Index 26.6 Labs 07/17/24 14:49 07/17/24 14:49 Medications Medications Current Medications Acetaminophen (Acetaminophen 325 Mg Tablet) 650 mg PO Q6H PRN PRN Reason: Headache/Pain, Scale 1-10 Al Hydroxide/Mg Hydroxide (Magnesium Hydrox/Alum Hydrox 30 Ml Oral.Susp) 30 ml PO Q6H PRN PRN Reason: Heartburn/Nausea Clonidine HCl (Clonidine Hcl 0.1 Mg Tablet) 0.1 mg PO Q4H PRN; Protocol PRN Reason: Anxiety Last Admin: 07/22/24 13:11 Dose: 0.1 mg Hydroxyzine HCl (Hydroxyzine Hcl 25 Mg Tablet) 25 mg PO Q6H PRN PRN Reason: mild anxiety Last Admin: 07/21/24 13:24 Dose: 25 mg Magnesium Hydroxide (Milk Of Magnesia 30 Ml Oral.Susp) 30 ml PO DAILY PRN PRN Reason: Constipation Nicotine Polacrilex (Nicotine Polacrilex 2 Mg Gum) 4 mg BUCCAL Q2H PRN PRN Reason: Nicotine Cravings Last Admin: 07/22/24 08:54 Dose: 4 mg Olanzapine (Olanzapine 5 Mg Tablet) 5 mg PO Q4H PRN PRN Reason: severe agitation Risperidone (Risperidone Oral Karen 1 Mg/Ml Solution) 2 mg PO BID JESSICA Last Admin: 07/22/24 08:53 Dose: 2 mg Trazodone HCl (Trazodone Hcl 50 Mg Tablet) 50 mg PO BEDTIME MRX1 PRN PRN Reason: Insomnia Last Admin: 07/20/24 22:50 Dose: 50 mg Allergies Allergies Allergy/AdvReac Type Severity Reaction Status Date / Time strawberry Allergy Mild Itching Verified 07/17/24 14:35 cefazolin Allergy Unknown Itching Verified 07/17/24 14:35 sulfamethoxazole Allergy Unknown Itching Verified 07/17/24 14:35 [From Bactrim] trimethoprim [From Bactrim] Allergy Unknown Itching Verified 07/17/24 14:35 lorazepam [From Ativan] AdvReac Agitated Verified 07/17/24 14:35 lithium AdvReac Unknown other Uncoded 11/29/23 21:03 Assessment & Plan Assessment & Plan (1) Schizoaffective disorder, bipolar type: Status: Acute Code(s): F25.0 - Schizoaffective disorder, bipolar type (2) Anxiety: Status: Chronic Code(s): F41.9 - Anxiety disorder, unspecified Plan HPI: Patient is a 28-year-old male with history of schizoaffective disorder, bipolar type, history of polysubstance abuse who presents via EMS for manic and delusional behaviors. Patient is a poor historian, lying in bed, not opening his eyes, and offering little information. Initially, patient was talking with the nurse but 1 minute later, as soon as check writer salesperson walked in to talk with patient, he kept his eyes closed and refused to respond at all to check writer salesperson. A little later on on re-approached, patient is willing to briefly engage. He says that he is doing good. On inquiry, he says I have no idea why he is here in the hospital; check writer salesperson shared that his parents felt he was unsafe, disorganized and destroying property which he denies, even though check writer salesperson mentioned that his mother showed pictures of damaging his apartment. Patient refuses to sign in and remains on a 12 B. Patient took risperidone (he initially spit it out but then took it) this morning and says he will keep taking it but refuses the long- acting injectable. he denies any AVH, SI or HI. Patient's mother, Patsy who is also patient's healthcare proxy reported collateral. She says he has not been taking medications consistently has been very disorganized, has destroyed the apartment that she and her own and pay for, including smashing several television sets, multiple cell phones, refrigerators and other appliances and items, taking off all the door in the apartments (she provided pictures); she says he has been disorganized, not showering at all attending to ADLs, acting confused, and doing strange things such as snorting salt... Patient yelling at her, demanding things such as groceries which she buys and which he then proceeds to throwing the trash... Formulation/clinical reasoning: Patient has well documented history of schizoaffective disorder, bipolar type. Patient had very similar presentation on his last admission January 2024, but responded well with p.o. Risperdal and then on long-acting Risperdal product Uzedy (also on Wellbutrin XL 150 mg), organized, attending to ADLs, in good behavioral and impulse control and even developed some limited insight, briefly acknowledging that he did have paranoid delusions and auditory hallucinations prior to taking medication... However, patient has a long history of medication non-adherence and decompensation which is again resulting in need for psychiatric hospitalization. On the unit, he is with odd behaviors and malodorous (patient did ask for and ostensibly took a shower but emerged remaining malodorous and with matted hair). Patient is currently taking a low dose of Risperdal (though intermittently refused); however this dose is inadequate, patient does not want medication adjustments and refuses long-acting inectable Risperdal which is essential to sustained function in the community; he has no insight at all and check writer salesperson is convinced that patient will stop taking medications (or take them inadequately) immediately if he were to discharge. Invoke HCP: Patient has a signed healthcare proxy on file. Patient is disorganized and unable to function in the community; he does not have capacity to make medical decisions for himself and so check writer salesperson will invoke this healthcare proxy. Hospital course: 07/19 Patient difficult with which to engage and denies all psychiatric symptoms. He says I want to get off medication... Bioengineer shares his family's concerns about his behaviors but patient tells check writer salesperson I was doing good at home... Patient talking to check writer salesperson holding his hand in front of his mouth. At 1 point patient stopped talking to check writer salesperson completely, keeping his eyes closed but then responded later. Patient does not want to stay in the hospital and Bioengineer informed patient of involuntary commitment and invoking healthcare proxy. Patient's mother present who gave more collateral. She says that after his last discharge, he refused to get long-acting injectable and would not take medication. In March he took a low dose of Risperdal for 2 days but then not again until a couple of weeks later. At that time he took Risperdal 2 mg b.i.d. for 10 days and she reports it was the best days ever... That patient was doing well. However he stopped medication and again became disorganized. She says that patient has destroyed the apartment and shows check writer salesperson multiple pictures of broken televisions, other furniture, flipping over the refrigerator... Patient opened all the drawers throughout the apartment for some reason leaving them open; took off all the anterior doors off the hinges; she says that he broke the furnace somehow and the apartment complex was without heat; now the upstairs Renter is now moving out because does not want to have to deal with the heat going off. She says he took his bed out and put it in the yd; whenever she buys him food he immediately deems it into the trash. She said over the past couple weeks patient has been increasingly agitated and aggressive, once posturing aggressively towards his father; patient angrily threatened his mom yelling leave this house or I'll push you again... , yelling in her face with spittle coming out of his mouth.. Mother says she is scared, felt threatened and left. She said she called the police who know the family; she reports that patient postured aggressively towards 1 of the police officers but because the officer knew him, told his partner to stand down and they thus brought him to the hospital 07/20 pt remains psychotic, talking to himself; patient is difficult with which to engage. Nursing observing patient cheeking Risperdal and spitting out the garbage. Bioengineer discussed taking Risperdal with patient who has some ambivalence and told check writer salesperson he would take it but then that he did not want it and needed something that would help [him] both sleep and drive... He then said he would take it even it increased dose of 2 mg b.i.d. -Patient remains with bizarre behaviors. Patient does not look at check writer salesperson when talking; during conversation he will intermittently stop talking in the middle of conversation, stare off, sometimes muttering to himself and then restart talking... Patient lining up sugar packets and cards on his bed in specific ways; in the milieu, check writer salesperson observed patient jumping on a chair and hopping around in the kitchen 07/21 Nursing continue to observe patient cheeking Risperdal than spitting it out. Remains difficult with which to engage and will sometimes not respond to check writer salesperson at all. Remains with odd, behaviors and internally preoccupied -switch to liquid Risperdal 07/22 Patient refused liquid Risperdal last night but took it this morning. Patient tells check writer salesperson he will keep taking the Risperdal, since he likes the taste of the liquid Risperdal. Patient remains with disorganized behaviors; patient laughing out loud. Bioengineer observed patient going into the kitchen, taking something out of the refrigerator, sitting down in a chair and waiting a few sec and then putting it back in the refrigerator; patient would then going to his room, run around his bed and then back into the kitchen to repeat the same behavior. Plan: Twelve B Q 15 minute checks INVOKE HCP File for affirmation of healthcare proxy (involuntary commitment) since patient remains without insight Switch to liquid Risperdal 2 mg b.i.d. since patient cheeking and spitting out pills (pt stabilized on this dose in past) want to restart Risperdaly Uzedy 100 mg q28 days (or higher dose for longer duration) Will hold off restarting Wellbutrin given patient has some manic behaviors and on inadequate risperidone Past med trials: Vraylar: Did not seem to work Patient educated on: diagnosis and medication risk/benefits Informed Consent: does not understand Reason for continued inpatient stay Substantial Risk for: inability to function Time Spent With Patient Time: Total time managing care of this patient today ____ minutes.
[2024-07-22] MEDS: hydrOXYzine HCL 25 MG TABLET PO (15:13)
[2024-07-22 19:27] VITALS: BP 123/60; PULSE 82; TEMP 36.7; O2SAT 98
[2024-07-23 07:45] VITALS: BP 123/64; RESP 18; TEMP 36.5; O2SAT 99
[2024-07-23] MEDS: risperiDONE Oral Sol 1 MG/ML SOLUTION 2 MG PO ×2 (09:02→20:42)
[2024-07-23 11:00] VITALS: BP 124/63
[2024-07-23] MEDS: cloNIDine HCL 0.1 MG TABLET PO (11:00)
--- NOTE | 2024-07-23 12:06 | P.PNPSI_ITS ---
Subjective Subjective Date of Service: 07/23/24 Reason For Visit: Schizoaffective Disorder, bipolar type Interim History: Met with patient; discussed with team pt only willing to minimally engage with mortgage or loan underwriter; running in and out of his room, taking things out of community refrigerator and bringing them in his room. Looks away when talking. Pt refused EKG. Internally pre-occupied and responding to internal stimuli Mental Status Exam Mental Status Exam Narrative: Pt is alert and oriented; behavior is superficially cooperative and polite;, odd behaviors, talking to himself; he remains guarded; patient is not in distress; dressed in casual attire, twisting hair into pigtails, disheveled, malodorous; mood is described as good and affect blunted; eye contact avoidant; Speech is with latency and thought blocking; when talking normal rate, volume and prosody and not pressured; both psychomotor agitation/retardation intermittently present; thought process is goal directed but marred and distracted by thought blocking; Thought content is not disclosed but seems to be with delusional ideations; denies any SI/HI. Denies AVH however patient is internally preoccupied and talking to himself. Patients insight and judgment impaired. Diagnostics Vital Signs (24Hr): Vital Signs - 24 hr 07/22/24 13:11 07/22/24 19:27 07/23/24 07:45 Temperature 98.1 F 97.7 F Pulse Rate 82 Respiratory Rate 18 Blood Pressure 127/64 123/60 123/64 Pulse Oximetry 98 99 Oxygen Delivery Method Room Air Room Air 07/23/24 11:00 Temperature Pulse Rate Respiratory Rate Blood Pressure 124/63 Pulse Oximetry Oxygen Delivery Method BMI result Body Mass Index 26.6 Labs 07/17/24 14:49 07/17/24 14:49 Medications Medications Current Medications Acetaminophen (Acetaminophen 325 Mg Tablet) 650 mg PO Q6H PRN PRN Reason: Headache/Pain, Scale 1-10 Al Hydroxide/Mg Hydroxide (Magnesium Hydrox/Alum Hydrox 30 Ml Oral.Susp) 30 ml PO Q6H PRN PRN Reason: Heartburn/Nausea Clonidine HCl (Clonidine Hcl 0.1 Mg Tablet) 0.1 mg PO Q4H PRN; Protocol PRN Reason: Anxiety Last Admin: 07/23/24 11:00 Dose: 0.1 mg Hydroxyzine HCl (Hydroxyzine Hcl 25 Mg Tablet) 25 mg PO Q6H PRN PRN Reason: mild anxiety Last Admin: 07/22/24 15:13 Dose: 25 mg Magnesium Hydroxide (Milk Of Magnesia 30 Ml Oral.Susp) 30 ml PO DAILY PRN PRN Reason: Constipation Nicotine Polacrilex (Nicotine Polacrilex 2 Mg Gum) 4 mg BUCCAL Q2H PRN PRN Reason: Nicotine Cravings Last Admin: 07/22/24 08:54 Dose: 4 mg Olanzapine (Olanzapine 5 Mg Tablet) 5 mg PO Q4H PRN PRN Reason: severe agitation Risperidone (Risperidone Oral Karen 1 Mg/Ml Solution) 2 mg PO BID JESSICA Last Admin: 07/23/24 09:02 Dose: 2 mg Trazodone HCl (Trazodone Hcl 50 Mg Tablet) 50 mg PO BEDTIME MRX1 PRN PRN Reason: Insomnia Last Admin: 07/20/24 22:50 Dose: 50 mg Allergies Allergies Allergy/AdvReac Type Severity Reaction Status Date / Time strawberry Allergy Mild Itching Verified 07/17/24 14:35 cefazolin Allergy Unknown Itching Verified 07/17/24 14:35 sulfamethoxazole Allergy Unknown Itching Verified 07/17/24 14:35 [From Bactrim] trimethoprim [From Bactrim] Allergy Unknown Itching Verified 07/17/24 14:35 lorazepam [From Ativan] AdvReac Agitated Verified 07/17/24 14:35 lithium AdvReac Unknown other Uncoded 11/29/23 21:03 Assessment & Plan Assessment & Plan (1) Schizoaffective disorder, bipolar type: Status: Acute Code(s): F25.0 - Schizoaffective disorder, bipolar type (2) Anxiety: Status: Chronic Code(s): F41.9 - Anxiety disorder, unspecified Plan HPI: Patient is a 28-year-old male with history of schizoaffective disorder, bipolar type, history of polysubstance abuse who presents via EMS for manic and delusional behaviors. Patient is a poor historian, lying in bed, not opening his eyes, and offering little information. Initially, patient was talking with the nurse but 1 minute later, as soon as mortgage or loan underwriter walked in to talk with patient, he kept his eyes closed and refused to respond at all to mortgage or loan underwriter. A little later on on re-approached, patient is willing to briefly engage. He says that he is doing good. On inquiry, he says I have no idea why he is here in the hospital; mortgage or loan underwriter shared that his parents felt he was unsafe, disorganized and destroying property which he denies, even though mortgage or loan underwriter mentioned that his mother showed pictures of damaging his apartment. Patient refuses to sign in and remains on a 12 B. Patient took risperidone (he initially spit it out but then took it) this morning and says he will keep taking it but refuses the long- acting injectable. he denies any AVH, SI or HI. Patient's mother, Patsy who is also patient's healthcare proxy reported collateral. She says he has not been taking medications consistently has been very disorganized, has destroyed the apartment that she and her own and pay for, including smashing several television sets, multiple cell phones, refrigerators and other appliances and items, taking off all the door in the apartments (she provided pictures); she says he has been disorganized, not showering at all attending to ADLs, acting confused, and doing strange things such as snorting salt... Patient yelling at her, demanding things such as groceries which she buys and which he then proceeds to throwing the trash... Formulation/clinical reasoning: Patient has well documented history of schizoaffective disorder, bipolar type. Patient had very similar presentation on his last admission January 2024, but responded well with p.o. Risperdal and then on long-acting Risperdal product Uzedy (also on Wellbutrin XL 150 mg), organized, attending to ADLs, in good behavioral and impulse control and even developed some limited insight, briefly acknowledging that he did have paranoid delusions and auditory hallucinations prior to taking medication... However, patient has a long history of medication non-adherence and decompensation which is again resulting in need for psychiatric hospitalization. On the unit, he is with odd behaviors and malodorous (patient did ask for and ostensibly took a shower but emerged remaining malodorous and with matted hair). Patient is currently taking a low dose of Risperdal (though intermittently refused); however this dose is inadequate, patient does not want medication adjustments and refuses long-acting inectable Risperdal which is essential to sustained function in the community; he has no insight at all and mortgage or loan underwriter is convinced that patient will stop taking medications (or take them inadequately) immediately if he were to discharge. Invoke HCP: Patient has a signed healthcare proxy on file. Patient is disorganized and unable to function in the community; he does not have capacity to make medical decisions for himself and so mortgage or loan underwriter will invoke this healthcare proxy. Hospital course: 07/19 Patient difficult with which to engage and denies all psychiatric symptoms. He says I want to get off medication... Psychology Associate shares his family's concerns about his behaviors but patient tells mortgage or loan underwriter I was doing good at home... Patient talking to mortgage or loan underwriter holding his hand in front of his mouth. At 1 point patient stopped talking to mortgage or loan underwriter completely, keeping his eyes closed but then responded later. Patient does not want to stay in the hospital and Psychology Associate informed patient of involuntary commitment and invoking healthcare proxy. Patient's mother present who gave more collateral. She says that after his last discharge, he refused to get long-acting injectable and would not take medication. In March he took a low dose of Risperdal for 2 days but then not again until a couple of weeks later. At that time he took Risperdal 2 mg b.i.d. for 10 days and she reports it was the best days ever... That patient was doing well. However he stopped medication and again became disorganized. She says that patient has destroyed the apartment and shows mortgage or loan underwriter multiple pictures of broken televisions, other furniture, flipping over the refrigerator... Patient opened all the drawers throughout the apartment for some reason leaving them open; took off all the anterior doors off the hinges; she says that he broke the furnace somehow and the apartment complex was without heat; now the upstairs Renter is now moving out because does not want to have to deal with the heat going off. She says he took his bed out and put it in the yd; whenever she buys him food he immediately deems it into the trash. She said over the past couple weeks patient has been increasingly agitated and aggressive, once posturing aggressively towards his father; patient angrily threatened his mom yelling leave this house or I'll push you again... , yelling in her face with spittle coming out of his mouth.. Mother says she is scared, felt threatened and left. She said she called the police who know the family; she reports that patient postured aggressively towards 1 of the police officers but because the officer knew him, told his partner to stand down and they thus brought him to the hospital 07/20 pt remains psychotic, talking to himself; patient is difficult with which to engage. Nursing observing patient cheeking Risperdal and spitting out the garbage. Psychology Associate discussed taking Risperdal with patient who has some ambivalence and told mortgage or loan underwriter he would take it but then that he did not want it and needed something that would help [him] both sleep and drive... He then said he would take it even it increased dose of 2 mg b.i.d. -Patient remains with bizarre behaviors. Patient does not look at mortgage or loan underwriter when talking; during conversation he will intermittently stop talking in the middle of conversation, stare off, sometimes muttering to himself and then restart talking... Patient lining up sugar packets and cards on his bed in specific ways; in the milieu, mortgage or loan underwriter observed patient jumping on a chair and hopping around in the kitchen 07/21 Nursing continue to observe patient cheeking Risperdal than spitting it out. Remains difficult with which to engage and will sometimes not respond to mortgage or loan underwriter at all. Remains with odd, behaviors and internally preoccupied -switch to liquid Risperdal 07/22 Patient refused liquid Risperdal last night but took it this morning. Patient tells mortgage or loan underwriter he will keep taking the Risperdal, since he likes the taste of the liquid Risperdal. Patient remains with disorganized behaviors; patient laughing out loud. Psychology Associate observed patient going into the kitchen, taking something out of the refrigerator, sitting down in a chair and waiting a few sec and then putting it back in the refrigerator; patient would then going to his room, run around his bed and then back into the kitchen to repeat the same behavior. 07/23 remains disorganized, internally pre-occupied. took risperdal last night and today Plan: Twelve B Q 15 minute checks INVOKE HCP File for affirmation of healthcare proxy (involuntary commitment) since patient remains without insight Switch to liquid Risperdal 2 mg b.i.d. since patient cheeking and spitting out pills (pt stabilized on this dose in past) want to restart Risperdaly Uzedy 100 mg q28 days (or higher dose for longer duration) Will hold off restarting Wellbutrin given patient has some manic behaviors and on inadequate risperidone Past med trials: Vraylar: Did not seem to work Patient educated on: diagnosis Informed Consent: does not understand Reason for continued inpatient stay Substantial Risk for: inability to function Time Spent With Patient Time: Total time managing care of this patient today ____ minutes.
[2024-07-23] MEDS: Nicotine Polacrilex 2 MG GUM 4 MG BUCCAL (18:28)
[2024-07-23 20:00] VITALS: BP 136/75; PULSE 90; RESP 16; TEMP 36.6; O2SAT 98
[2024-07-23 20:11] LABS: Appearance Urine Clear; Color Urine Yellow; Glucose Urine UA Negative (Negative); Leukocyte Esterase Urine Negative (Negative); Nitrite Urine Negative (Negative); Specific Gravity - Urine 1.015 (1.005-1.025); Urine Blood Negative (Negative); Urine Ketones Negative (Negative); Urine Protein Negative (Neg-Trace)
[2024-07-23 20:22] LABS: Amphetamine Screen Urine Not Detected (Not Detect); Barbiturates, Urine Not Detected (Not Detect); Benzodiazepines Screen Urine Not Detected (Not Detect); Buprenorphine Scr Not Detected (Not Detect); Cannabinoid Screen Urine Not Detected (Not Detect); Cocaine Screen Urine Not Detected (Not Detect); Fentanyl, urine Not Detected (Not Detect); Methadone Screen, Urine Not Detected (Not Detect); Opiate Screen Urine Not Detected (Not Detect); Oxycodone Screen Urine Not Detected (Not Detect); Phencyclidine Screen Urine Not Detected (Not Detect)
[2024-07-24] MEDS: Nicotine Polacrilex 2 MG GUM 4 MG BUCCAL ×2 (07:11→20:32)
[2024-07-24 07:52] VITALS: BP 116/58; PULSE 84; RESP 18; TEMP 36.9; O2SAT 98
[2024-07-24] MEDS: risperiDONE Oral Sol 1 MG/ML SOLUTION 2 MG PO (08:40)
--- NOTE | 2024-07-24 09:51 | HO.PSYCHPN ---
Subjective Subjective Date of Service: 07/24/24 Reason For Visit: Schizoaffective Disorder, bipolar type Interim History: met with patient; discussed with team Patient remains with very odd behaviors. On approach, patient turns and quickly walks away; technical publications writer catches up with patient and he is willing to talk but turns at an angle and looks away while talking. He says he is good and that he just wants some paper to draw. Today patient had white sticky substance covering the length of multiple pigtails in his hair; technical publications writer asked about this and patient said it was tooth paste. Retail Coordinator asked what for and patient said I just woke up this way... He then walks away quickly. Mental Status Exam Mental Status Exam Narrative: Pt is alert and oriented; behavior is superficially cooperative and polite;, odd behaviors, talking to himself; he remains guarded; patient is not in distress; dressed in casual attire, twisting hair into pigtails which he covered with toothpaste; disheveled, malodorous; mood is described as good and affect blunted; eye contact avoidant; Speech is with latency and thought blocking; when talking normal rate, volume and prosody and not pressured; both psychomotor agitation/retardation intermittently present; thought process is goal directed but marred and distracted by thought blocking; Thought content is not disclosed but seems to be with delusional ideations; denies any SI/HI. Denies AVH however patient is internally preoccupied and talking to himself. Patients insight and judgment impaired. Diagnostics Vital Signs (24Hr): Vital Signs - 24 hr 07/23/24 11:00 07/23/24 20:00 07/24/24 07:52 Temperature 97.8 F 98.5 F Pulse Rate 90 84 Respiratory Rate 16 18 Blood Pressure 124/63 136/75 116/58 L Pulse Oximetry 98 98 Oxygen Delivery Method Room Air Room Air BMI result Body Mass Index 26.6 Labs 07/17/24 14:49 07/17/24 14:49 Labs: Laboratory Results - last 48 hr 07/23/24 19:50 Urine Color Yellow Urine Appearance Clear Urine pH 6.0 Ur Specific [place] 1.015 Urine Protein Negative Urine Glucose (UA) Negative Urine Ketones Negative Urine Blood Negative Urine Nitrite Negative Ur Leukocyte Esterase Negative Urine Opiates Screen Not Detected Ur Buprenorphine Scrn Not Detected Ur Oxycodone Screen Not Detected Urine Methadone Screen Not Detected Urine Fentanyl Screen Not Detected Ur Barbiturates Screen Not Detected Ur Phencyclidine Scrn Not Detected Ur Amphetamines Screen Not Detected U Benzodiazepines Scrn Not Detected Urine Cocaine Screen Not Detected U Marijuana (THC) Screen Not Detected Medications Medications Current Medications Acetaminophen (Acetaminophen 325 Mg Tablet) 650 mg PO Q6H PRN PRN Reason: Headache/Pain, Scale 1-10 Al Hydroxide/Mg Hydroxide (Magnesium Hydrox/Alum Hydrox 30 Ml Oral.Susp) 30 ml PO Q6H PRN PRN Reason: Heartburn/Nausea Clonidine HCl (Clonidine Hcl 0.1 Mg Tablet) 0.1 mg PO Q4H PRN; Protocol PRN Reason: Anxiety Last Admin: 07/23/24 11:00 Dose: 0.1 mg Hydroxyzine HCl (Hydroxyzine Hcl 25 Mg Tablet) 25 mg PO Q6H PRN PRN Reason: mild anxiety Last Admin: 07/22/24 15:13 Dose: 25 mg Magnesium Hydroxide (Milk Of Magnesia 30 Ml Oral.Susp) 30 ml PO DAILY PRN PRN Reason: Constipation Nicotine Polacrilex (Nicotine Polacrilex 2 Mg Gum) 4 mg BUCCAL Q2H PRN PRN Reason: Nicotine Cravings Last Admin: 07/24/24 07:11 Dose: 4 mg Olanzapine (Olanzapine 5 Mg Tablet) 5 mg PO Q4H PRN PRN Reason: severe agitation Risperidone (Risperidone Oral Karen 1 Mg/Ml Solution) 2 mg PO BID JESSICA Last Admin: 07/24/24 08:40 Dose: 2 mg Trazodone HCl (Trazodone Hcl 50 Mg Tablet) 50 mg PO BEDTIME MRX1 PRN PRN Reason: Insomnia Last Admin: 07/20/24 22:50 Dose: 50 mg Allergies Allergies Allergy/AdvReac Type Severity Reaction Status Date / Time strawberry Allergy Mild Itching Verified 07/17/24 14:35 cefazolin Allergy Unknown Itching Verified 07/17/24 14:35 sulfamethoxazole Allergy Unknown Itching Verified 07/17/24 14:35 [From Bactrim] trimethoprim [From Bactrim] Allergy Unknown Itching Verified 07/17/24 14:35 lorazepam [From Ativan] AdvReac Agitated Verified 07/17/24 14:35 lithium AdvReac Unknown other Uncoded 11/29/23 21:03 Assessment & Plan Assessment & Plan (1) Schizoaffective disorder, bipolar type: Status: Acute Code(s): F25.0 - Schizoaffective disorder, bipolar type (2) Anxiety: Status: Chronic Code(s): F41.9 - Anxiety disorder, unspecified Plan HPI: Patient is a 28-year-old male with history of schizoaffective disorder, bipolar type, history of polysubstance abuse who presents via EMS for manic and delusional behaviors. Patient is a poor historian, lying in bed, not opening his eyes, and offering little information. Initially, patient was talking with the nurse but 1 minute later, as soon as technical publications writer walked in to talk with patient, he kept his eyes closed and refused to respond at all to technical publications writer. A little later on on re-approached, patient is willing to briefly engage. He says that he is doing good. On inquiry, he says I have no idea why he is here in the hospital; technical publications writer shared that his parents felt he was unsafe, disorganized and destroying property which he denies, even though technical publications writer mentioned that his mother showed pictures of damaging his apartment. Patient refuses to sign in and remains on a 12 B. Patient took risperidone (he initially spit it out but then took it) this morning and says he will keep taking it but refuses the long-acting injectable. he denies any AVH, SI or HI. Patient's mother, Patsy who is also patient's healthcare proxy reported collateral. She says he has not been taking medications consistently has been very disorganized, has destroyed the apartment that she and her own and pay for, including smashing several television sets, multiple cell phones, refrigerators and other appliances and items, taking off all the door in the apartments (she provided pictures); she says he has been disorganized, not showering at all attending to ADLs, acting confused, and doing strange things such as snorting salt... Patient yelling at her, demanding things such as groceries which she buys and which he then proceeds to throwing the trash... Formulation/clinical reasoning: Patient has well documented history of schizoaffective disorder, bipolar type. Patient had very similar presentation on his last admission January 2024, but responded well with p.o. Risperdal and then on long-acting Risperdal product Uzedy (also on Wellbutrin XL 150 mg), organized, attending to ADLs, in good behavioral and impulse control and even developed some limited insight, briefly acknowledging that he did have paranoid delusions and auditory hallucinations prior to taking medication... However, patient has a long history of medication non-adherence and decompensation which is again resulting in need for psychiatric hospitalization. On the unit, he is with odd behaviors and malodorous (patient did ask for and ostensibly took a shower but emerged remaining malodorous and with matted hair). Patient is currently taking a low dose of Risperdal (though intermittently refused); however this dose is inadequate, patient does not want medication adjustments and refuses long-acting inectable Risperdal which is essential to sustained function in the community; he has no insight at all and technical publications writer is convinced that patient will stop taking medications (or take them inadequately) immediately if he were to discharge. Invoke HCP: Patient has a signed healthcare proxy on file. Patient is disorganized and unable to function in the community; he does not have capacity to make medical decisions for himself and so technical publications writer will invoke this healthcare proxy. Hospital course: / Patient difficult with which to engage and denies all psychiatric symptoms. He says I want to get off medication... Retail Coordinator shares his family's concerns about his behaviors but patient tells technical publications writer I was doing good at home... Patient talking to technical publications writer holding his hand in front of his mouth. At 1 point patient stopped talking to technical publications writer completely, keeping his eyes closed but then responded later. Patient does not want to stay in the hospital and Retail Coordinator informed patient of involuntary commitment and invoking healthcare proxy. Patient's mother present who gave more collateral. She says that after his last discharge, he refused to get long-acting injectable and would not take medication. In March he took a low dose of Risperdal for 2 days but then not again until a couple of weeks later. At that time he took Risperdal 2 mg b.i.d. for 10 days and she reports it was the best days ever... That patient was doing well. However he stopped medication and again became disorganized. She says that patient has destroyed the apartment and shows technical publications writer multiple pictures of broken televisions, other furniture, flipping over the refrigerator... Patient opened all the drawers throughout the apartment for some reason leaving them open; took off all the anterior doors off the hinges; she says that he broke the furnace somehow and the apartment complex was without heat; now the upstairs Renter is now moving out because does not want to have to deal with the heat going off. She says he took his bed out and put it in the yd; whenever she buys him food he immediately deems it into the trash. She said over the past couple weeks patient has been increasingly agitated and aggressive, once posturing aggressively towards his father; patient angrily threatened his mom yelling leave this house or I'll push you again... , yelling in her face with spittle coming out of his mouth.. Mother says she is scared, felt threatened and left. She said she called the police who know the family; she reports that patient postured aggressively towards 1 of the police officers but because the officer knew him, told his partner to stand down and they thus brought him to the hospital 07/20 pt remains psychotic, talking to himself; patient is difficult with which to engage. Nursing observing patient cheeking Risperdal and spitting out the garbage. Retail Coordinator discussed taking Risperdal with patient who has some ambivalence and told technical publications writer he would take it but then that he did not want it and needed something that would help [him] both sleep and drive... He then said he would take it even it increased dose of 2 mg b.i.d. -Patient remains with bizarre behaviors. Patient does not look at technical publications writer when talking; during conversation he will intermittently stop talking in the middle of conversation, stare off, sometimes muttering to himself and then restart talking... Patient lining up sugar packets and cards on his bed in specific ways; in the milieu, technical publications writer observed patient jumping on a chair and hopping around in the kitchen 07/21 Nursing continue to observe patient cheeking Risperdal than spitting it out. Remains difficult with which to engage and will sometimes not respond to technical publications writer at all. Remains with odd, behaviors and internally preoccupied -switch to liquid Risperdal 07/22 Patient refused liquid Risperdal last night but took it this morning. Patient tells technical publications writer he will keep taking the Risperdal, since he likes the taste of the liquid Risperdal. Patient remains with disorganized behaviors; patient laughing out loud. Retail Coordinator observed patient going into the kitchen, taking something out of the refrigerator, sitting down in a chair and waiting a few sec and then putting it back in the refrigerator; patient would then going to his room, run around his bed and then back into the kitchen to repeat the same behavior. 07/23 remains disorganized, internally pre-occupied. took risperdal last night and today 07/24 Patient remains with very odd behaviors. On approach, patient turns and quickly walks away; technical publications writer catches up with patient and he is willing to talk but turns at an angle and looks away while talking. He says he is good and that he just wants some paper to draw. Today patient had white sticky substance covering the length of multiple pigtails in his hair; technical publications writer asked about this and patient said it was tooth paste. Retail Coordinator asked what for and patient said I just woke up this way... He then walks away quickly. -has been taking liquid Risperdal; says he likes the limb and flavored Plan: Twelve B Q 15 minute checks INVOKE HCP File for affirmation of healthcare proxy (involuntary commitment) since patient remains without insight Switch to liquid Risperdal 2 mg b.i.d. since patient cheeking and spitting out pills (pt stabilized on this dose in past) want to restart Risperdaly Uzedy 100 mg q28 days (or higher dose for longer duration) Will hold off restarting Wellbutrin given patient has some manic behaviors and on inadequate risperidone Past med trials: Vraylar: Did not seem to work Patient educated on: diagnosis Informed Consent: does not understand Reason for continued inpatient stay Substantial Risk for: inability to function Time Spent With Patient Time: Total time managing care of this patient today ____ minutes.
[2024-07-24] MEDS: cloNIDine HCL 0.1 MG TABLET PO (10:23)
[2024-07-24] MEDS: hydrOXYzine HCL 25 MG TABLET PO (18:41)
[2024-07-24 20:00] VITALS: BP 126/83; PULSE 77; TEMP 36.6; O2SAT 98
[2024-07-25] MEDS: traZODone HCL 50 MG TABLET PO
[2024-07-25 08:00] VITALS: BP 116/61; PULSE 68; TEMP 36.2; O2SAT 97
[2024-07-25] MEDS: risperiDONE Oral Sol 1 MG/ML SOLUTION 2 MG PO ×3 (08:51→23:55)
[2024-07-25] MEDS: Nicotine Polacrilex 2 MG GUM 4 MG BUCCAL (10:13)
[2024-07-25 19:41] VITALS: BP 111/69; PULSE 97; RESP 18; TEMP 36.6; O2SAT 97
--- NOTE | 2024-07-25 21:15 | HO.PSYCHPN ---
Subjective Subjective Date of Service: 07/25/24 Reason For Visit: Schizoaffective Disorder, bipolar type Interim History: met with patient; discussed with team pt remains disorganized, psychotic. Explained to pt court tomorrow which he was surprised about (though has been informed). Pt asks to switch from risperdal to ADD medication; then asks to switch to happy medication. He likes the idea of restarting Wellbutrin. Patient stops talking to software writer and attends to internal stimuli, seemingly oblivious to writers presence...conversation never resumes Mental Status Exam Mental Status Exam Narrative: Pt is alert and oriented; behavior is superficially cooperative and polite;, odd behaviors, talking to himself; he remains guarded; patient is not in distress; dressed in casual attire, twisting hair into; disheveled, malodorous; mood is described as good and affect labile; eye contact avoidant; Speech is with latency and significant thought blocking; both psychomotor agitation/retardation intermittently present; thought process is goal directed but marred and distracted by thought blocking; Thought content is not disclosed but pt remains internally preoccupied; denies any SI/HI. Denies AVH however patient is internally preoccupied and talking to himself. Patients insight and judgment impaired. Diagnostics Vital Signs (24Hr): Vital Signs - 24 hr 07/25/24 08:00 07/25/24 19:41 Temperature 97.1 F 98 F Pulse Rate 68 97 Respiratory Rate 18 Blood Pressure 116/61 111/69 Pulse Oximetry 97 97 Oxygen Delivery Method Room Air Room Air BMI result Body Mass Index 26.6 Labs 07/17/24 14:49 07/17/24 14:49 Medications Medications Current Medications Acetaminophen (Acetaminophen 325 Mg Tablet) 650 mg PO Q6H PRN PRN Reason: Headache/Pain, Scale 1-10 Al Hydroxide/Mg Hydroxide (Magnesium Hydrox/Alum Hydrox 30 Ml Oral.Susp) 30 ml PO Q6H PRN PRN Reason: Heartburn/Nausea Clonidine HCl (Clonidine Hcl 0.1 Mg Tablet) 0.1 mg PO Q4H PRN; Protocol PRN Reason: Anxiety Last Admin: 07/24/24 10:23 Dose: 0.1 mg Hydroxyzine HCl (Hydroxyzine Hcl 25 Mg Tablet) 25 mg PO Q6H PRN PRN Reason: mild anxiety Last Admin: 07/24/24 18:41 Dose: 25 mg Magnesium Hydroxide (Milk Of Magnesia 30 Ml Oral.Susp) 30 ml PO DAILY PRN PRN Reason: Constipation Nicotine Polacrilex (Nicotine Polacrilex 2 Mg Gum) 4 mg BUCCAL Q2H PRN PRN Reason: Nicotine Cravings Last Admin: 07/25/24 10:13 Dose: 4 mg Olanzapine (Olanzapine 5 Mg Tablet) 5 mg PO Q4H PRN PRN Reason: severe agitation Risperidone (Risperidone Oral Karen 1 Mg/Ml Solution) 2 mg PO BID JESSICA Last Admin: 07/25/24 08:51 Dose: 2 mg Trazodone HCl (Trazodone Hcl 50 Mg Tablet) 50 mg PO BEDTIME MRX1 PRN PRN Reason: Insomnia Last Admin: 07/25/24 00:00 Dose: 50 mg Allergies Allergies Allergy/AdvReac Type Severity Reaction Status Date / Time strawberry Allergy Mild Itching Verified 07/17/24 14:35 cefazolin Allergy Unknown Itching Verified 07/17/24 14:35 sulfamethoxazole Allergy Unknown Itching Verified 07/17/24 14:35 [From Bactrim] trimethoprim [From Bactrim] Allergy Unknown Itching Verified 07/17/24 14:35 lorazepam [From Ativan] AdvReac Agitated Verified 07/17/24 14:35 lithium AdvReac Unknown other Uncoded 11/29/23 21:03 Assessment & Plan Assessment & Plan (1) Schizoaffective disorder, bipolar type: Status: Acute Code(s): F25.0 - Schizoaffective disorder, bipolar type (2) Anxiety: Status: Chronic Code(s): F41.9 - Anxiety disorder, unspecified Plan HPI: Patient is a 28-year-old male with history of schizoaffective disorder, bipolar type, history of polysubstance abuse who presents via EMS for manic and delusional behaviors. Patient is a poor historian, lying in bed, not opening his eyes, and offering little information. Initially, patient was talking with the nurse but 1 minute later, as soon as software writer walked in to talk with patient, he kept his eyes closed and refused to respond at all to software writer. A little later on on re-approached, patient is willing to briefly engage. He says that he is doing good. On inquiry, he says I have no idea why he is here in the hospital; software writer shared that his parents felt he was unsafe, disorganized and destroying property which he denies, even though software writer mentioned that his mother showed pictures of damaging his apartment. Patient refuses to sign in and remains on a 12 B. Patient took risperidone (he initially spit it out but then took it) this morning and says he will keep taking it but refuses the long-acting injectable. he denies any AVH, SI or HI. Patient's mother, Patsy who is also patient's healthcare proxy reported collateral. She says he has not been taking medications consistently has been very disorganized, has destroyed the apartment that she and her own and pay for, including smashing several television sets, multiple cell phones, refrigerators and other appliances and items, taking off all the door in the apartments (she provided pictures); she says he has been disorganized, not showering at all attending to ADLs, acting confused, and doing strange things such as snorting salt... Patient yelling at her, demanding things such as groceries which she buys and which he then proceeds to throwing the trash... Formulation/clinical reasoning: Patient has well documented history of schizoaffective disorder, bipolar type. Patient had very similar presentation on his last admission January 2024, but responded well with p.o. Risperdal and then on long-acting Risperdal product Uzedy (also on Wellbutrin XL 150 mg), organized, attending to ADLs, in good behavioral and impulse control and even developed some limited insight, briefly acknowledging that he did have paranoid delusions and auditory hallucinations prior to taking medication... However, patient has a long history of medication non-adherence and decompensation which is again resulting in need for psychiatric hospitalization. On the unit, he is with odd behaviors and malodorous (patient did ask for and ostensibly took a shower but emerged remaining malodorous and with matted hair). Patient is currently taking a low dose of Risperdal (though intermittently refused); however this dose is inadequate, patient does not want medication adjustments and refuses long-acting inectable Risperdal which is essential to sustained function in the community; he has no insight at all and software writer is convinced that patient will stop taking medications (or take them inadequately) immediately if he were to discharge. Invoke HCP: Patient has a signed healthcare proxy on file. Patient is disorganized and unable to function in the community; he does not have capacity to make medical decisions for himself and so software writer will invoke this healthcare proxy. Hospital course: 07/19 Patient difficult with which to engage and denies all psychiatric symptoms. He says I want to get off medication... As[employer] shares his family's concerns about his behaviors but patient tells software writer I was doing good at home... Patient talking to software writer holding his hand in front of his mouth. At 1 point patient stopped talking to software writer completely, keeping his eyes closed but then responded later. Patient does not want to stay in the hospital and [employer] informed patient of involuntary commitment and invoking healthcare proxy. Patient's mother present who gave more collateral. She says that after his last discharge, he refused to get long-acting injectable and would not take medication. In March he took a low dose of Risperdal for 2 days but then not again until a couple of weeks later. At that time he took Risperdal 2 mg b.i.d. for 10 days and she reports it was the best days ever... That patient was doing well. However he stopped medication and again became disorganized. She says that patient has destroyed the apartment and shows software writer multiple pictures of broken televisions, other furniture, flipping over the refrigerator... Patient opened all the drawers throughout the apartment for some reason leaving them open; took off all the anterior doors off the hinges; she says that he broke the furnace somehow and the apartment complex was without heat; now the upstairs Renter is now moving out because does not want to have to deal with the heat going off. She says he took his bed out and put it in the yd; whenever she buys him food he immediately deems it into the trash. She said over the past couple weeks patient has been increasingly agitated and aggressive, once posturing aggressively towards his father; patient angrily threatened his mom yelling leave this house or I'll push you again... , yelling in her face with spittle coming out of his mouth.. Mother says she is scared, felt threatened and left. She said she called the police who know the family; she reports that patient postured aggressively towards 1 of the police officers but because the officer knew him, told his partner to stand down and they thus brought him to the hospital 07/20 pt remains psychotic, talking to himself; patient is difficult with which to engage. Nursing observing patient cheeking Risperdal and spitting out the garbage. [employer] discussed taking Risperdal with patient who has some ambivalence and told software writer he would take it but then that he did not want it and needed something that would help [him] both sleep and drive... He then said he would take it even it increased dose of 2 mg b.i.d. -Patient remains with bizarre behaviors. Patient does not look at software writer when talking; during conversation he will intermittently stop talking in the middle of conversation, stare off, sometimes muttering to himself and then restart talking... Patient lining up sugar packets and cards on his bed in specific ways; in the milieu, software writer observed patient jumping on a chair and hopping around in the kitchen 07/21 Nursing continue to observe patient cheeking Risperdal than spitting it out. Remains difficult with which to engage and will sometimes not respond to software writer at all. Remains with odd, behaviors and internally preoccupied -switch to liquid Risperdal 07/22 Patient refused liquid Risperdal last night but took it this morning. Patient tells software writer he will keep taking the Risperdal, since he likes the taste of the liquid Risperdal. Patient remains with disorganized behaviors; patient laughing out loud. As[employer] observed patient going into the kitchen, taking something out of the refrigerator, sitting down in a chair and waiting a few sec and then putting it back in the refrigerator; patient would then going to his room, run around his bed and then back into the kitchen to repeat the same behavior. 07/23 remains disorganized, internally pre-occupied. took risperdal last night and today 07/24 Patient remains with very odd behaviors. On approach, patient turns and quickly walks away; software writer catches up with patient and he is willing to talk but turns at an angle and looks away while talking. He says he is good and that he just wants some paper to draw. Today patient had white sticky substance covering the length of multiple pigtails in his hair; software writer asked about this and patient said it was tooth paste. As[employer] asked what for and patient said I just woke up this way... He then walks away quickly. -has been taking liquid Risperdal; says he likes the limb and flavored 07/25 pt remains disorganized, psychotic. Explained to pt court tomorrow which he was surprised about (though has been informed). Pt asks to switch from risperdal to ADD medication; then asks to switch to happy medication. He likes the idea of restarting Wellbutrin. Patient stops talking to software writer and attends to internal stimuli, seemingly oblivious to writers presence...conversation never resumes. Instead, pt continues to draw smilie face's and hearts on a piece of paper over and over Impression: pt remains floridly psychotic with disorganized speech and behavior. Patient cannot distinguish reality from delusion. Pt is fully incapable of caring for himself in the community and would not be able to acquire food or care home on his own; and on his own he would be vulnerable to predation. He has no insight at all into his psychiatric illness or his need for medication and is only taking Liquid Risperdal since he likes the taste of it. Were patient to discharge today, he would very soon cease taking medication. Plan: Twelve B Q 15 minute checks INVOKE HCP File for affirmation of healthcare proxy (involuntary commitment) since patient remains without insight Switch to liquid Risperdal 2 mg b.i.d. since patient cheeking and spitting out pills (pt stabilized on this dose in past) want to restart Risperdaly Uzedy 100 mg q28 days (or higher dose for longer duration) Will hold off restarting Wellbutrin given patient has some manic behaviors and on inadequate risperidone Past med trials: Vraylar: Did not seem to work Patient educated on: diagnosis and medication risk/benefits Informed Consent: does not understand Reason for continued inpatient stay Substantial Risk for: inability to function Time Spent With Patient Time: Total time managing care of this patient today ____ minutes.
[2024-07-26] MEDS: traZODone HCL 50 MG TABLET PO ×2 (00:13→20:25)
[2024-07-26] MEDS: hydrOXYzine HCL 25 MG TABLET PO ×2 (00:13→20:25)
[2024-07-26 07:00] VITALS: BMI 29.3
[2024-07-26 08:00] VITALS: RESP 18
[2024-07-26] MEDS: risperiDONE Oral Sol 1 MG/ML SOLUTION 2 MG PO ×2 (09:22→20:25)
--- NOTE | 2024-07-26 09:57 | HO.PSYCHPN ---
Subjective Subjective Date of Service: 07/26/24 Reason For Visit: Schizoaffective Disorder, bipolar type Interim History: met with patient; discussed with team; attending court hearing Pt initially refused Risperdal last night but then took it later on Pt sitting in room, in dark, drawing something that resembles an equation, he says it's something i might make later on Pt said he wanted to talk about discharge and specification writer reminded him about court today and that the youth court judge would decide; he said he does not want to attend court due to anxiety Mental Status Exam Mental Status Exam Narrative: Pt is alert and oriented; behavior is superficially cooperative and polite;, odd behaviors, talking to himself; he remains guarded; patient is not in distress; dressed in casual attire, twisting hair into pigtails; disheveled, malodorous; mood is described as good and affect labile; eye contact avoidant; Speech is with latency and significant thought blocking; both psychomotor agitation/retardation intermittently present; thought process is goal directed but marred and distracted by thought blocking; Thought content is not disclosed but pt remains internally preoccupied; denies any SI/HI. Denies AVH however patient is internally preoccupied and talking to himself. Patients insight and judgment impaired. Diagnostics Vital Signs (24Hr): Vital Signs - 24 hr 07/25/24 19:41 07/26/24 08:00 Temperature 98 F Pulse Rate 97 Respiratory Rate 18 18 Blood Pressure 111/69 Pulse Oximetry 97 Oxygen Delivery Method Room Air Room Air BMI result Body Mass Index 26.6 Labs 07/17/24 14:49 07/17/24 14:49 Medications Medications Current Medications Acetaminophen (Acetaminophen 325 Mg Tablet) 650 mg PO Q6H PRN PRN Reason: Headache/Pain, Scale 1-10 Al Hydroxide/Mg Hydroxide (Magnesium Hydrox/Alum Hydrox 30 Ml Oral.Susp) 30 ml PO Q6H PRN PRN Reason: Heartburn/Nausea Clonidine HCl (Clonidine Hcl 0.1 Mg Tablet) 0.1 mg PO Q4H PRN; Protocol PRN Reason: Anxiety Last Admin: 07/24/24 10:23 Dose: 0.1 mg Hydroxyzine HCl (Hydroxyzine Hcl 25 Mg Tablet) 25 mg PO Q6H PRN PRN Reason: mild anxiety Last Admin: 07/26/24 00:13 Dose: 25 mg Magnesium Hydroxide (Milk Of Magnesia 30 Ml Oral.Susp) 30 ml PO DAILY PRN PRN Reason: Constipation Nicotine Polacrilex (Nicotine Polacrilex 2 Mg Gum) 4 mg BUCCAL Q2H PRN PRN Reason: Nicotine Cravings Last Admin: 07/25/24 10:13 Dose: 4 mg Olanzapine (Olanzapine 5 Mg Tablet) 5 mg PO Q4H PRN PRN Reason: severe agitation Risperidone (Risperidone Oral Karen 1 Mg/Ml Solution) 2 mg PO BID JESSICA Last Admin: 07/26/24 09:22 Dose: 2 mg Trazodone HCl (Trazodone Hcl 50 Mg Tablet) 50 mg PO BEDTIME MRX1 PRN PRN Reason: Insomnia Last Admin: 07/26/24 00:13 Dose: 50 mg Allergies Allergies Allergy/AdvReac Type Severity Reaction Status Date / Time strawberry Allergy Mild Itching Verified 07/17/24 14:35 cefazolin Allergy Unknown Itching Verified 07/17/24 14:35 sulfamethoxazole Allergy Unknown Itching Verified 07/17/24 14:35 [From Bactrim] trimethoprim [From Bactrim] Allergy Unknown Itching Verified 07/17/24 14:35 lorazepam [From Ativan] AdvReac Agitated Verified 07/17/24 14:35 lithium AdvReac Unknown other Uncoded 11/29/23 21:03 Assessment & Plan Assessment & Plan (1) Schizoaffective disorder, bipolar type: Status: Acute Code(s): F25.0 - Schizoaffective disorder, bipolar type (2) Anxiety: Status: Chronic Code(s): F41.9 - Anxiety disorder, unspecified Plan HPI: Patient is a 28-year-old male with history of schizoaffective disorder, bipolar type, history of polysubstance abuse who presents via EMS for manic and delusional behaviors. Patient is a poor historian, lying in bed, not opening his eyes, and offering little information. Initially, patient was talking with the nurse but 1 minute later, as soon as specification writer walked in to talk with patient, he kept his eyes closed and refused to respond at all to specification writer. A little later on on re-approached, patient is willing to briefly engage. He says that he is doing good. On inquiry, he says I have no idea why he is here in the hospital; specification writer shared that his parents felt he was unsafe, disorganized and destroying property which he denies, even though specification writer mentioned that his mother showed pictures of damaging his apartment. Patient refuses to sign in and remains on a 12 B. Patient took risperidone (he initially spit it out but then took it) this morning and says he will keep taking it but refuses the long-acting injectable. he denies any AVH, SI or HI. Patient's mother, Patsy who is also patient's healthcare proxy reported collateral. She says he has not been taking medications consistently has been very disorganized, has destroyed the apartment that she and her own and pay for, including smashing several television sets, multiple cell phones, refrigerators and other appliances and items, taking off all the door in the apartments (she provided pictures); she says he has been disorganized, not showering at all attending to ADLs, acting confused, and doing strange things such as snorting salt... Patient yelling at her, demanding things such as groceries which she buys and which he then proceeds to throwing the trash... Formulation/clinical reasoning: Patient has well documented history of schizoaffective disorder, bipolar type. Patient had very similar presentation on his last admission January 2024, but responded well with p.o. Risperdal and then on long-acting Risperdal product Uzedy (also on Wellbutrin XL 150 mg), organized, attending to ADLs, in good behavioral and impulse control and even developed some limited insight, briefly acknowledging that he did have paranoid delusions and auditory hallucinations prior to taking medication... However, patient has a long history of medication non-adherence and decompensation which is again resulting in need for psychiatric hospitalization. On the unit, he is with odd behaviors and malodorous (patient did ask for and ostensibly took a shower but emerged remaining malodorous and with matted hair). Patient is currently taking a low dose of Risperdal (though intermittently refused); however this dose is inadequate, patient does not want medication adjustments and refuses long-acting inectable Risperdal which is essential to sustained function in the community; he has no insight at all and specification writer is convinced that patient will stop taking medications (or take them inadequately) immediately if he were to discharge. Invoke HCP: Patient has a signed healthcare proxy on file. Patient is disorganized and unable to function in the community; he does not have capacity to make medical decisions for himself and so specification writer will invoke this healthcare proxy. Hospital course: 07/19 Patient difficult with which to engage and denies all psychiatric symptoms. He says I want to get off medication... Hooker Machine Tender shares his family's concerns about his behaviors but patient tells specification writer I was doing good at home... Patient talking to specification writer holding his hand in front of his mouth. At 1 point patient stopped talking to specification writer completely, keeping his eyes closed but then responded later. Patient does not want to stay in the hospital and Hooker Machine Tender informed patient of involuntary commitment and invoking healthcare proxy. Patient's mother present who gave more collateral. She says that after his last discharge, he refused to get long-acting injectable and would not take medication. In March he took a low dose of Risperdal for 2 days but then not again until a couple of weeks later. At that time he took Risperdal 2 mg b.i.d. for 10 days and she reports it was the best days ever... That patient was doing well. However he stopped medication and again became disorganized. She says that patient has destroyed the apartment and shows specification writer multiple pictures of broken televisions, other furniture, flipping over the refrigerator... Patient opened all the drawers throughout the apartment for some reason leaving them open; took off all the anterior doors off the hinges; she says that he broke the furnace somehow and the apartment complex was without heat; now the upstairs Renter is now moving out because does not want to have to deal with the heat going off. She says he took his bed out and put it in the yd; whenever she buys him food he immediately deems it into the trash. She said over the past couple weeks patient has been increasingly agitated and aggressive, once posturing aggressively towards his father; patient angrily threatened his mom yelling leave this house or I'll push you again... , yelling in her face with spittle coming out of his mouth.. Mother says she is scared, felt threatened and left. She said she called the police who know the family; she reports that patient postured aggressively towards 1 of the police officers but because the officer knew him, told his partner to stand down and they thus brought him to the hospital 07/20 pt remains psychotic, talking to himself; patient is difficult with which to engage. Nursing observing patient cheeking Risperdal and spitting out the garbage. Hooker Machine Tender discussed taking Risperdal with patient who has some ambivalence and told specification writer he would take it but then that he did not want it and needed something that would help [him] both sleep and drive... He then said he would take it even it increased dose of 2 mg b.i.d. -Patient remains with bizarre behaviors. Patient does not look at specification writer when talking; during conversation he will intermittently stop talking in the middle of conversation, stare off, sometimes muttering to himself and then restart talking... Patient lining up sugar packets and cards on his bed in specific ways; in the milieu, specification writer observed patient jumping on a chair and hopping around in the kitchen 07/21 Nursing continue to observe patient cheeking Risperdal than spitting it out. Remains difficult with which to engage and will sometimes not respond to specification writer at all. Remains with odd, behaviors and internally preoccupied -switch to liquid Risperdal 07/22 Patient refused liquid Risperdal last night but took it this morning. Patient tells specification writer he will keep taking the Risperdal, since he likes the taste of the liquid Risperdal. Patient remains with disorganized behaviors; patient laughing out loud. Hooker Machine Tender observed patient going into the kitchen, taking something out of the refrigerator, sitting down in a chair and waiting a few sec and then putting it back in the refrigerator; patient would then going to his room, run around his bed and then back into the kitchen to repeat the same behavior. 07/23 remains disorganized, internally pre-occupied. took risperdal last night and today 07/24 Patient remains with very odd behaviors. On approach, patient turns and quickly walks away; specification writer catches up with patient and he is willing to talk but turns at an angle and looks away while talking. He says he is good and that he just wants some paper to draw. Today patient had white sticky substance covering the length of multiple pigtails in his hair; specification writer asked about this and patient said it was tooth paste. Hooker Machine Tender asked what for and patient said I just woke up this way... He then walks away quickly. -has been taking liquid Risperdal; says he likes the limb and flavored 07/25 pt remains disorganized, psychotic. Explained to pt court tomorrow which he was surprised about (though has been informed). Pt asks to switch from risperdal to ADD medication; then asks to switch to happy medication. He likes the idea of restarting Wellbutrin. Patient stops talking to specification writer and attends to internal stimuli, seemingly oblivious to writers presence...conversation never resumes. Instead, pt continues to draw smilie face's and hearts on a piece of paper over and over Impression: pt remains floridly psychotic with disorganized speech and behavior. Patient cannot distinguish reality from delusion. Pt is fully incapable of caring for himself in the community and would not be able to acquire food or halfway on his own; and on his own he would be vulnerable to predation. He has no insight at all into his psychiatric illness or his need for medication and is only taking Liquid Risperdal since he likes the taste of it. Were patient to discharge today, he would very soon cease taking medication. 07/26 c/o nasal congestion; covid/rsv ordered and negative Pt initially refused Risperdal last night but then took it later on. Pt sitting in room, in dark, drawing something that resembles an equation, he says it's something i might make later on Pt said he wanted to talk about discharge and specification writer reminded him about court today and that the youth court judge would decide; he said he does not want to attend court due to anxiety Court civilly committed patient involuntarily to treatment with substituted judgment -will start with Uzedy 100mg; this will last for 1 month; anticipating it will take patient at least 1 month to stabilize; plan will be to give patient Uzedy 200mg prior to leaving which will give him a longer period of stability in the community Plan: Section 8/8a patient involuntary committed with substituted judgment Q 15 minute checks INVOKED HCP: File for affirmation of healthcare proxy (involuntary commitment) since patient remains without insight Continue Risperdal (liquid) 2 mg b.i.d. for several days to overlap Uzedy START Risperdal Uzedy 100 mg q30 days: Start on 07/27 COURT-ORDERED CAN NOT REFUSE -Prior to DC, after 30 days will follow-up with Risperdal Uzedy 200 mg Will likely eventually restart Wellbutrin once patient psychotic symptoms are stabilized Past med trials: Vraylar: Did not seem to work Medications on Court-ordered substituted judgment: Risperdal up to 6 mg Uzedy up to 200 mg q.2 months Clozaril Zyprexa Paliperidone/Invega including Trinza Ziprasidone Depakote Patient educated on: diagnosis and medication risk/benefits Informed Consent: does not understand Reason for continued inpatient stay Substantial Risk for: inability to function Time Spent With Patient Time: Total time managing care of this patient today ____ minutes.
[2024-07-26 12:54] LABS: Influenza A PCR NEGATIVE (Negative); Influenza B PCR NEGATIVE (Negative); Resp Syncy Virus RNA Qual PCR NEGATIVE (Negative); SARS COV2 PCR INHOUSE NEGATIVE (Negative)
[2024-07-26] MEDS: Pseudoephedrine HCL 30 MG TABLET PO (13:49)
[2024-07-26 17:11] LABS: Creatinine Clr Calc Pharmacy 139.9; Estimated Glomerular Filt Rate > 60
[2024-07-26 20:00] VITALS: BP 124/60; PULSE 84; RESP 18; TEMP 36.9; O2SAT 96
[2024-07-26] MEDS: Nicotine Polacrilex 2 MG GUM 4 MG BUCCAL (20:25)
[2024-07-26] MEDS: cloNIDine HCL 0.1 MG TABLET PO (20:25)
[2024-07-27 08:00] VITALS: RESP 18
[2024-07-27] MEDS: risperiDONE Oral Sol 1 MG/ML SOLUTION 2 MG PO ×2 (09:14→21:11)
[2024-07-27] MEDS: risperiDONE ER 100 MG/0.28 ML SUSER.SYR SUBCUT (14:10)
--- NOTE | 2024-07-27 14:17 | P.PNPSI_ITS ---
Subjective Subjective Date of Service: 07/27/24 Reason For Visit: Schizoaffective Disorder, bipolar type Interim History: Active on unit. guarded. Pt responding with one word answers to questions. Patient reports feeling fine ; pt was informed of Uzedy injection ordered for today. Pt did not acknowledge T/W and proceeded to close eyes. Pt was encouraged to inform RN if he has any questions. Medication Compliance: Yes Side effects from medications: No Mental Status Exam Mental Status Exam Narrative: unable to obtain full mental status d/t patient responding with brief answers. Patient Appearance: Disheveled Level of Consciousness: Awake Patient Behavior: Guarded Affect Description: Blunted Diagnostics Vital Signs (24Hr): Vital Signs - 24 hr 07/26/24 20:00 07/27/24 08:00 Temperature 98.4 F Pulse Rate 84 Respiratory Rate 18 18 Blood Pressure 124/60 Pulse Oximetry 96 Oxygen Delivery Method Room Air BMI result Body Mass Index 29.3 Labs 07/17/24 14:49 07/26/24 16:18 Labs: Laboratory Results - last 48 hr 07/26/24 07/26/24 11:40 16:18 Creatinine 0.86 Estim Creat Clear Calc 139.9 Estimated GFR > 60 Influenza Type A (PCR) NEGATIVE Influenza Type B (PCR) NEGATIVE RSV RNA Qual (PCR) NEGATIVE SARS-CoV-2 RNA (RT-PCR) NEGATIVE Medications Medications Current Medications Acetaminophen (Acetaminophen 325 Mg Tablet) 650 mg PO Q6H PRN PRN Reason: Headache/Pain, Scale 1-10 Al Hydroxide/Mg Hydroxide (Magnesium Hydrox/Alum Hydrox 30 Ml Oral.Susp) 30 ml PO Q6H PRN PRN Reason: Heartburn/Nausea Clonidine HCl (Clonidine Hcl 0.1 Mg Tablet) 0.1 mg PO Q4H PRN; Protocol PRN Reason: Anxiety Last Admin: 07/26/24 20:25 Dose: 0.1 mg Hydroxyzine HCl (Hydroxyzine Hcl 25 Mg Tablet) 25 mg PO Q6H PRN PRN Reason: mild anxiety Last Admin: 07/26/24 20:25 Dose: 25 mg Magnesium Hydroxide (Milk Of Magnesia 30 Ml Oral.Susp) 30 ml PO DAILY PRN PRN Reason: Constipation Nicotine Polacrilex (Nicotine Polacrilex 2 Mg Gum) 4 mg BUCCAL Q2H PRN PRN Reason: Nicotine Cravings Last Admin: 07/26/24 20:25 Dose: 4 mg Olanzapine (Olanzapine 5 Mg Tablet) 5 mg PO Q4H PRN PRN Reason: severe agitation Pseudoephedrine HCl (Pseudoephedrine Hcl 30 Mg Tablet) 30 mg PO Q6H PRN PRN Reason: nasal congestion Last Admin: 07/26/24 13:49 Dose: 30 mg Risperidone (Risperidone Oral Karen 1 Mg/Ml Solution) 2 mg PO BID JESSICA Last Admin: 07/27/24 09:14 Dose: 2 mg Trazodone HCl (Trazodone Hcl 50 Mg Tablet) 50 mg PO BEDTIME MRX1 PRN PRN Reason: Insomnia Last Admin: 07/26/24 20:25 Dose: 50 mg Allergies Allergies Allergy/AdvReac Type Severity Reaction Status Date / Time strawberry Allergy Mild Itching Verified 07/17/24 14:35 cefazolin Allergy Unknown Itching Verified 07/17/24 14:35 sulfamethoxazole Allergy Unknown Itching Verified 07/17/24 14:35 [From Bactrim] trimethoprim [From Bactrim] Allergy Unknown Itching Verified 07/17/24 14:35 lorazepam [From Ativan] AdvReac Agitated Verified 07/17/24 14:35 lithium AdvReac Unknown other Uncoded 11/29/23 21:03 Assessment & Plan Assessment & Plan (1) Schizoaffective disorder, bipolar type: Status: Acute Code(s): F25.0 - Schizoaffective disorder, bipolar type (2) Anxiety: Status: Chronic Code(s): F41.9 - Anxiety disorder, unspecified Plan HPI: Patient is a 28-year-old male with history of schizoaffective disorder, bipolar type, history of polysubstance abuse who presents via EMS for manic and delusional behaviors. Patient is a poor historian, lying in bed, not opening his eyes, and offering little information. Initially, patient was talking with the nurse but 1 minute later, as soon as mortgage or loan underwriter walked in to talk with patient, he kept his eyes closed and refused to respond at all to mortgage or loan underwriter. A little later on on re-approached, patient is willing to briefly engage. He says that he is doing good. On inquiry, he says I have no idea why he is here in the hospital; mortgage or loan underwriter shared that his parents felt he was unsafe, disorganized and destroying property which he denies, even though mortgage or loan underwriter mentioned that his mother showed pictures of damaging his apartment. Patient refuses to sign in and remains on a 12 B. Patient took risperidone (he initially spit it out but then took it) this morning and says he will keep taking it but refuses the long- acting injectable. he denies any AVH, SI or HI. Patient's mother, Patsy who is also patient's healthcare proxy reported collateral. She says he has not been taking medications consistently has been very disorganized, has destroyed the apartment that she and her own and pay for, including smashing several television sets, multiple cell phones, refrigerators and other appliances and items, taking off all the door in the apartments (she provided pictures); she says he has been disorganized, not showering at all attending to ADLs, acting confused, and doing strange things such as snorting salt... Patient yelling at her, demanding things such as groceries which she buys and which he then proceeds to throwing the trash... Formulation/clinical reasoning: Patient has well documented history of schizoaffective disorder, bipolar type. Patient had very similar presentation on his last admission January 2024, but responded well with p.o. Risperdal and then on long-acting Risperdal product Uzedy (also on Wellbutrin XL 150 mg), organized, attending to ADLs, in good behavioral and impulse control and even developed some limited insight, briefly acknowledging that he did have paranoid delusions and auditory hallucinations prior to taking medication... However, patient has a long history of medication non-adherence and decompensation which is again resulting in need for psychiatric hospitalization. On the unit, he is with odd behaviors and malodorous (patient did ask for and ostensibly took a shower but emerged remaining malodorous and with matted hair). Patient is currently taking a low dose of Risperdal (though intermittently refused); however this dose is inadequate, patient does not want medication adjustments and refuses long-acting inectable Risperdal which is essential to sustained function in the community; he has no insight at all and mortgage or loan underwriter is convinced that patient will stop taking medications (or take them inadequately) immediately if he were to discharge. Invoke HCP: Patient has a signed healthcare proxy on file. Patient is disorganized and unable to function in the community; he does not have capacity to make medical decisions for himself and so mortgage or loan underwriter will invoke this healthcare proxy. Hospital course: 07/19 Patient difficult with which to engage and denies all psychiatric symptoms. He says I want to get off medication... Cat Driver shares his family's concerns about his behaviors but patient tells mortgage or loan underwriter I was doing good at home... Patient talking to mortgage or loan underwriter holding his hand in front of his mouth. At 1 point patient stopped talking to mortgage or loan underwriter completely, keeping his eyes closed but then responded later. Patient does not want to stay in the hospital and Cat Driver informed patient of involuntary commitment and invoking healthcare proxy. Patient's mother present who gave more collateral. She says that after his last discharge, he refused to get long-acting injectable and would not take medication. In March he took a low dose of Risperdal for 2 days but then not again until a couple of weeks later. At that time he took Risperdal 2 mg b.i.d. for 10 days and she reports it was the best days ever... That patient was doing well. However he stopped medication and again became disorganized. She says that patient has destroyed the apartment and shows mortgage or loan underwriter multiple pictures of broken televisions, other furniture, flipping over the refrigerator... Patient opened all the drawers throughout the apartment for some reason leaving them open; took off all the anterior doors off the hinges; she says that he broke the furnace somehow and the apartment complex was without heat; now the upstairs Renter is now moving out because does not want to have to deal with the heat going off. She says he took his bed out and put it in the yd; whenever she buys him food he immediately deems it into the trash. She said over the past couple weeks patient has been increasingly agitated and aggressive, once posturing aggressively towards his father; patient angrily threatened his mom yelling leave this house or I'll push you again... , yelling in her face with spittle coming out of his mouth.. Mother says she is scared, felt threatened and left. She said she called the police who know the family; she reports that patient postured aggressively towards 1 of the police officers but because the officer knew him, told his partner to stand down and they thus brought him to the hospital 07/20 pt remains psychotic, talking to himself; patient is difficult with which to engage. Nursing observing patient cheeking Risperdal and spitting out the garbage. Cat Driver discussed taking Risperdal with patient who has some ambivalence and told mortgage or loan underwriter he would take it but then that he did not want it and needed something that would help [him] both sleep and drive... He then said he would take it even it increased dose of 2 mg b.i.d. -Patient remains with bizarre behaviors. Patient does not look at mortgage or loan underwriter when talking; during conversation he will intermittently stop talking in the middle of conversation, stare off, sometimes muttering to himself and then restart talking... Patient lining up sugar packets and cards on his bed in specific ways; in the milieu, mortgage or loan underwriter observed patient jumping on a chair and hopping around in the kitchen 07/21 Nursing continue to observe patient cheeking Risperdal than spitting it out. Remains difficult with which to engage and will sometimes not respond to mortgage or loan underwriter at all. Remains with odd, behaviors and internally preoccupied -switch to liquid Risperdal 07/22 Patient refused liquid Risperdal last night but took it this morning. Patient tells mortgage or loan underwriter he will keep taking the Risperdal, since he likes the taste of the liquid Risperdal. Patient remains with disorganized behaviors; patient laughing out loud. Cat Driver observed patient going into the kitchen, taking something out of the refrigerator, sitting down in a chair and waiting a few sec and then putting it back in the refrigerator; patient would then going to his room, run around his bed and then back into the kitchen to repeat the same behavior. 07/23 remains disorganized, internally pre-occupied. took risperdal last night and today 07/24 Patient remains with very odd behaviors. On approach, patient turns and quickly walks away; mortgage or loan underwriter catches up with patient and he is willing to talk but turns at an angle and looks away while talking. He says he is good and that he just wants some paper to draw. Today patient had white sticky substance covering the length of multiple pigtails in his hair; mortgage or loan underwriter asked about this and patient said it was tooth paste. Cat Driver asked what for and patient said I just woke up this way... He then walks away quickly. -has been taking liquid Risperdal; says he likes the limb and flavored 07/25 pt remains disorganized, psychotic. Explained to pt court tomorrow which he was surprised about (though has been informed). Pt asks to switch from risperdal to ADD medication; then asks to switch to happy medication. He likes the idea of restarting Wellbutrin. Patient stops talking to mortgage or loan underwriter and attends to internal stimuli, seemingly oblivious to writers presence...conversation never resumes. Instead, pt continues to draw smilie face's and hearts on a piece of paper over and over Impression: pt remains floridly psychotic with disorganized speech and behavior. Patient cannot distinguish reality from delusion. Pt is fully incapable of caring for himself in the community and would not be able to acquire food or care home on his own; and on his own he would be vulnerable to predation. He has no insight at all into his psychiatric illness or his need for medication and is only taking Liquid Risperdal since he likes the taste of it. Were patient to discharge today, he would very soon cease taking medication. 07/26 c/o nasal congestion; covid/rsv ordered and negative Pt initially refused Risperdal last night but then took it later on. Pt sitting in room, in dark, drawing something that resembles an equation, he says it's something i might make later on Pt said he wanted to talk about discharge and mortgage or loan underwriter reminded him about court today and that the inspector finishing would decide; he said he does not want to attend court due to anxiety Court civilly committed patient involuntarily to treatment with substituted judgment -will start with Uzedy 100mg; this will last for 1 month; anticipating it will take patient at least 1 month to stabilize; plan will be to give patient Uzedy 200mg prior to leaving which will give him a longer period of stability in the community 07/27: Active on unit. guarded. Pt responding with one word answers to questions. Patient reports feeling fine ; pt was informed of Uzedy injection ordered for today. Pt did not acknowledge T/W and proceeded to close eyes. Pt was encouraged to inform RN if he has any questions. Plan: Section 8 patient involuntary committed with substituted judgment Q 15 minute checks INVOKED HCP: File for affirmation of healthcare proxy (involuntary commitment) since patient remains without insight Continue Risperdal (liquid) 2 mg b.i.d. for several days to overlap Uzedy START Risperdal Uzedy 100 mg q30 days: Start on 07/27 COURT-ORDERED CAN NOT REFUSE -Prior to DC, after 30 days will follow-up with Risperdal Uzedy 200 mg Will likely eventually restart Wellbutrin once patient psychotic symptoms are stabilized Past med trials: Vraylar: Did not seem to work Medications on Court-ordered substituted judgment: Risperdal up to 6 mg Uzedy up to 200 mg q.2 months Clozaril Zyprexa Paliperidone/Invega including Trinza Ziprasidone Depakote Patient educated on: medication risk/benefits Reason for continued inpatient stay Substantial Risk for: med/psych decompensation Time Spent With Patient Time: Total time managing care of this patient today _10___ minutes.
[2024-07-27] MEDS: Nicotine Polacrilex 2 MG GUM 4 MG BUCCAL (15:28)
[2024-07-27] MEDS: hydrOXYzine HCL 25 MG TABLET PO (18:27)
[2024-07-27 20:00] VITALS: BP 132/78; PULSE 117; RESP 18; TEMP 37.2; O2SAT 98
--- NOTE | 2024-07-28 07:59 | P.PNPSI_ITS ---
Subjective Subjective Date of Service: 07/28/24 Reason For Visit: Schizoaffective Disorder, bipolar type Subjective Notes: Section 8 Healthcare Proxy: No Guardianship: Yes Medical Problems Affecting Mental Status: No Interim History: 28 yo reports he is fine, took quite a long time to respond, nursing reports answering only in one word responses - but did speak to me in full sentences , mostly about when he could leave- otherwise isolating to room- poor eye contact- Medication Compliance: Yes Side effects from medications: No Attending Groups: No Review of Systems Acute medical concerns: No Medical Review of Systems: unchanged Mental Status Exam Mental Status Exam Patient Appearance: Unkempt and Bizarre Patient Orientation: Person and Place Level of Consciousness: Awake and Drowsy Patient Behavior: Distractible, Isolative and Poor Eye Contact Mood Description: Apathetic Affect Description: Blunted Patient Cognition Impaired: No Ability to Follow Directions: Poor Speech Pattern: Impoverished Delusions: Present Thought Process: Distracted Thought Content: positive for Disorganized and positive for Evasive Judgement: Poor Diagnostics Vital Signs (24Hr): Vital Signs - 24 hr 07/27/24 08:00 07/27/24 20:00 Temperature 98.9 F Pulse Rate 117 H Respiratory Rate 18 18 Blood Pressure 132/78 Pulse Oximetry 98 Oxygen Delivery Method Room Air BMI result Body Mass Index 29.3 Labs 07/17/24 14:49 07/26/24 16:18 Labs: Laboratory Results - last 48 hr 07/26/24 07/26/24 11:40 16:18 Creatinine 0.86 Estim Creat Clear Calc 139.9 Estimated GFR > 60 Influenza Type A (PCR) NEGATIVE Influenza Type B (PCR) NEGATIVE RSV RNA Qual (PCR) NEGATIVE SARS-CoV-2 RNA (RT-PCR) NEGATIVE Medications Medications Current Medications Acetaminophen (Acetaminophen 325 Mg Tablet) 650 mg PO Q6H PRN PRN Reason: Headache/Pain, Scale 1-10 Al Hydroxide/Mg Hydroxide (Magnesium Hydrox/Alum Hydrox 30 Ml Oral.Susp) 30 ml PO Q6H PRN PRN Reason: Heartburn/Nausea Clonidine HCl (Clonidine Hcl 0.1 Mg Tablet) 0.1 mg PO Q4H PRN; Protocol PRN Reason: Anxiety Last Admin: 07/26/24 20:25 Dose: 0.1 mg Hydroxyzine HCl (Hydroxyzine Hcl 25 Mg Tablet) 25 mg PO Q6H PRN PRN Reason: mild anxiety Last Admin: 07/27/24 18:27 Dose: 25 mg Magnesium Hydroxide (Milk Of Magnesia 30 Ml Oral.Susp) 30 ml PO DAILY PRN PRN Reason: Constipation Nicotine Polacrilex (Nicotine Polacrilex 2 Mg Gum) 4 mg BUCCAL Q2H PRN PRN Reason: Nicotine Cravings Last Admin: 07/27/24 15:28 Dose: 4 mg Olanzapine (Olanzapine 5 Mg Tablet) 5 mg PO Q4H PRN PRN Reason: severe agitation Pseudoephedrine HCl (Pseudoephedrine Hcl 30 Mg Tablet) 30 mg PO Q6H PRN PRN Reason: nasal congestion Last Admin: 07/26/24 13:49 Dose: 30 mg Risperidone (Risperidone Oral Karen 1 Mg/Ml Solution) 2 mg PO BID JESSICA Last Admin: 07/27/24 21:11 Dose: 2 mg Trazodone HCl (Trazodone Hcl 50 Mg Tablet) 50 mg PO BEDTIME MRX1 PRN PRN Reason: Insomnia Last Admin: 07/26/24 20:25 Dose: 50 mg Allergies Allergies Allergy/AdvReac Type Severity Reaction Status Date / Time strawberry Allergy Mild Itching Verified 07/17/24 14:35 cefazolin Allergy Unknown Itching Verified 07/17/24 14:35 sulfamethoxazole Allergy Unknown Itching Verified 07/17/24 14:35 [From Bactrim] trimethoprim [From Bactrim] Allergy Unknown Itching Verified 07/17/24 14:35 lorazepam [From Ativan] AdvReac Agitated Verified 07/17/24 14:35 lithium AdvReac Unknown other Uncoded 11/29/23 21:03 Assessment & Plan Assessment & Plan (1) Schizoaffective disorder, bipolar type: Status: Acute Code(s): F25.0 - Schizoaffective disorder, bipolar type (2) Anxiety: Status: Chronic Code(s): F41.9 - Anxiety disorder, unspecified Plan HPI: Patient is a 28-year-old male with history of schizoaffective disorder, bipolar type, history of polysubstance abuse who presents via EMS for manic and delusional behaviors. Patient is a poor historian, lying in bed, not opening his eyes, and offering little information. Initially, patient was talking with the nurse but 1 minute later, as soon as automobile service writer walked in to talk with patient, he kept his eyes closed and refused to respond at all to automobile service writer. A little later on on re-approached, patient is willing to briefly engage. He says that he is doing good. On inquiry, he says I have no idea why he is here in the hospital; automobile service writer shared that his parents felt he was unsafe, disorganized and destroying property which he denies, even though automobile service writer mentioned that his mother showed pictures of damaging his apartment. Patient refuses to sign in and remains on a 12 B. Patient took risperidone (he initially spit it out but then took it) this morning and says he will keep taking it but refuses the long- acting injectable. he denies any AVH, SI or HI. Patient's mother, Patsy who is also patient's healthcare proxy reported collateral. She says he has not been taking medications consistently has been very disorganized, has destroyed the apartment that she and her own and pay for, including smashing several television sets, multiple cell phones, refrigerators and other appliances and items, taking off all the door in the apartments (she provided pictures); she says he has been disorganized, not showering at all attending to ADLs, acting confused, and doing strange things such as snorting salt... Patient yelling at her, demanding things such as groceries which she buys and which he then proceeds to throwing the trash... Formulation/clinical reasoning: Patient has well documented history of schizoaffective disorder, bipolar type. Patient had very similar presentation on his last admission January 2024, but responded well with p.o. Risperdal and then on long-acting Risperdal product Uzedy (also on Wellbutrin XL 150 mg), organized, attending to ADLs, in good behavioral and impulse control and even developed some limited insight, briefly acknowledging that he did have paranoid delusions and auditory hallucinations prior to taking medication... However, patient has a long history of medication non-adherence and decompensation which is again resulting in need for psychiatric hospitalization. On the unit, he is with odd behaviors and malodorous (patient did ask for and ostensibly took a shower but emerged remaining malodorous and with matted hair). Patient is currently taking a low dose of Risperdal (though intermittently refused); however this dose is inadequate, patient does not want medication adjustments and refuses long-acting inectable Risperdal which is essential to sustained function in the community; he has no insight at all and automobile service writer is convinced that patient will stop taking medications (or take them inadequately) immediately if he were to discharge. Invoke HCP: Patient has a signed healthcare proxy on file. Patient is disorganized and unable to function in the community; he does not have capacity to make medical decisions for himself and so automobile service writer will invoke this healthcare proxy. Hospital course: 07/19 Patient difficult with which to engage and denies all psychiatric symptoms. He says I want to get off medication... Workers' Compensation Commissioner shares his family's concerns about his behaviors but patient tells automobile service writer I was doing good at home... Patient talking to automobile service writer holding his hand in front of his mouth. At 1 point patient stopped talking to automobile service writer completely, keeping his eyes closed but then responded later. Patient does not want to stay in the hospital and Workers' Compensation Commissioner informed patient of involuntary commitment and invoking healthcare proxy. Patient's mother present who gave more collateral. She says that after his last discharge, he refused to get long-acting injectable and would not take medication. In March he took a low dose of Risperdal for 2 days but then not again until a couple of weeks later. At that time he took Risperdal 2 mg b.i.d. for 10 days and she reports it was the best days ever... That patient was doing well. However he stopped medication and again became disorganized. She says that patient has destroyed the apartment and shows automobile service writer multiple pictures of broken televisions, other furniture, flipping over the refrigerator... Patient opened all the drawers throughout the apartment for some reason leaving them open; took off all the anterior doors off the hinges; she says that he broke the furnace somehow and the apartment complex was without heat; now the upstairs Renter is now moving out because does not want to have to deal with the heat going off. She says he took his bed out and put it in the yd; whenever she buys him food he immediately deems it into the trash. She said over the past couple weeks patient has been increasingly agitated and aggressive, once posturing aggressively towards his father; patient angrily threatened his mom yelling leave this house or I'll push you again... , yelling in her face with spittle coming out of his mouth.. Mother says she is scared, felt threatened and left. She said she called the police who know the family; she reports that patient postured aggressively towards 1 of the police officers but because the officer knew him, told his partner to stand down and they thus brought him to the hospital 07/20 pt remains psychotic, talking to himself; patient is difficult with which to engage. Nursing observing patient cheeking Risperdal and spitting out the garbage. Workers' Compensation Commissioner discussed taking Risperdal with patient who has some ambivalence and told automobile service writer he would take it but then that he did not want it and needed something that would help [him] both sleep and drive... He then said he would take it even it increased dose of 2 mg b.i.d. -Patient remains with bizarre behaviors. Patient does not look at automobile service writer when talking; during conversation he will intermittently stop talking in the middle of conversation, stare off, sometimes muttering to himself and then restart talking... Patient lining up sugar packets and cards on his bed in specific ways; in the milieu, automobile service writer observed patient jumping on a chair and hopping around in the kitchen 07/21 Nursing continue to observe patient cheeking Risperdal than spitting it out. Remains difficult with which to engage and will sometimes not respond to automobile service writer at all. Remains with odd, behaviors and internally preoccupied -switch to liquid Risperdal 07/22 Patient refused liquid Risperdal last night but took it this morning. Patient tells automobile service writer he will keep taking the Risperdal, since he likes the taste of the liquid Risperdal. Patient remains with disorganized behaviors; patient laughing out loud. Workers' Compensation Commissioner observed patient going into the kitchen, taking something out of the refrigerator, sitting down in a chair and waiting a few sec and then putting it back in the refrigerator; patient would then going to his room, run around his bed and then back into the kitchen to repeat the same behavior. 07/23 remains disorganized, internally pre-occupied. took risperdal last night and today 07/24 Patient remains with very odd behaviors. On approach, patient turns and quickly walks away; automobile service writer catches up with patient and he is willing to talk but turns at an angle and looks away while talking. He says he is good and that he just wants some paper to draw. Today patient had white sticky substance covering the length of multiple pigtails in his hair; automobile service writer asked about this and patient said it was tooth paste. Workers' Compensation Commissioner asked what for and patient said I just woke up this way... He then walks away quickly. -has been taking liquid Risperdal; says he likes the limb and flavored 07/25 pt remains disorganized, psychotic. Explained to pt court tomorrow which he was surprised about (though has been informed). Pt asks to switch from risperdal to ADD medication; then asks to switch to happy medication. He likes the idea of restarting Wellbutrin. Patient stops talking to automobile service writer and attends to internal stimuli, seemingly oblivious to writers presence...conversation never resumes. Instead, pt continues to draw smilie face's and hearts on a piece of paper over and over Impression: pt remains floridly psychotic with disorganized speech and behavior. Patient cannot distinguish reality from delusion. Pt is fully incapable of caring for himself in the community and would not be able to acquire food or halfway on his own; and on his own he would be vulnerable to predation. He has no insight at all into his psychiatric illness or his need for medication and is only taking Liquid Risperdal since he likes the taste of it. Were patient to discharge today, he would very soon cease taking medication. 07/26 c/o nasal congestion; covid/rsv ordered and negative Pt initially refused Risperdal last night but then took it later on. Pt sitting in room, in dark, drawing something that resembles an equation, he says it's something i might make later on Pt said he wanted to talk about discharge and automobile service writer reminded him about court today and that the country manager would decide; he said he does not want to attend court due to anxiety Court civilly committed patient involuntarily to treatment with substituted judgment -will start with Uzedy 100mg; this will last for 1 month; anticipating it will take patient at least 1 month to stabilize; plan will be to give patient Uzedy 200mg prior to leaving which will give him a longer period of stability in the community 07/27: Active on unit. guarded. Pt responding with one word answers to questions. Patient reports feeling fine ; pt was informed of Uzedy injection ordered for today. Pt did not acknowledge T/W and proceeded to close eyes. Pt was encouraged to inform RN if he has any questions. 07/28 seems more withdrawn today-one word answers to nursing, questioning provider re dc- CTP Plan: Section 8 patient involuntary committed with substituted judgment Q 15 minute checks INVOKED HCP: File for affirmation of healthcare proxy (involuntary commitment) since patient remains without insight Continue Risperdal (liquid) 2 mg b.i.d. for several days to overlap Uzedy START Risperdal Uzedy 100 mg q30 days: Start on 07/27 COURT-ORDERED CAN NOT REFUSE -Prior to DC, after 30 days will follow-up with Risperdal Uzedy 200 mg Will likely eventually restart Wellbutrin once patient psychotic symptoms are stabilized Past med trials: Vraylar: Did not seem to work Medications on Court-ordered substituted judgment: Risperdal up to 6 mg Uzedy up to 200 mg q.2 months Clozaril Zyprexa Paliperidone/Invega including Trinza Ziprasidone Depakote Patient educated on: other (re dc planning) Informed Consent: does not understand and further education needed Reason for continued inpatient stay Substantial Risk for: inability to function and rapid decompensation Time Spent With Patient Time: Total time managing care of this patient today ____ minutes.
[2024-07-28] MEDS: risperiDONE Oral Sol 1 MG/ML SOLUTION 2 MG PO ×2 (10:07→20:26)
[2024-07-28] MEDS: Nicotine Polacrilex 2 MG GUM 4 MG BUCCAL (19:05)
[2024-07-28 20:00] VITALS: RESP 18
[2024-07-28] MEDS: traZODone HCL 50 MG TABLET PO (20:25)
--- NOTE | 2024-07-29 | ECG_ITS ---
Test Reason : CHECK QT Blood Pressure : */* mmHG Vent. Rate : 65 BPM Atrial Rate : 65 BPM P-R Int : 150 ms QRS Dur : 96 ms QT Int : 392 ms P-R-T Axes : 52 70 16 degrees QTcB Int : 407 ms Normal sinus rhythm Normal ECG When compared with ECG of 14-Feb-2023 15:20, No significant change was found Referred By: Toni Balderas Electronically Signed By: TIMUR LUNDBEGR MD
--- NOTE | 2024-07-29 08:05 | HO.PSYCHPN ---
Subjective Subjective Date of Service: 07/29/24 Reason For Visit: Schizoaffective Disorder, bipolar type Subjective Notes: Section 8 Medical Problems Affecting Mental Status: No Interim History: 28 yo visited by mom today, says visit went well- He told me he has his own place now and his mom brings him his medications daily- denies [facility] involvement?! Now that he is up and engaged, he is asking as per his usual about when he can be discharged. In any case he is improved though still symptomatic- Medication Compliance: Yes Side effects from medications: No Attending Groups: No Review of Systems Acute medical concerns: No Medical Review of Systems: unchanged Mental Status Exam Mental Status Exam Narrative: stretching in his room saying he can't get enough to eat- but will be fine after lunch- (hadn't been eating when catatonic_ ) Patient Appearance: Unkempt and Bizarre Patient Orientation: Person, Place and Situation Level of Consciousness: Awake Patient Behavior: Cooperative and Poor Eye Contact Mood Description: Calm Affect Description: Blunted Patient Cognition Impaired: No Ability to Follow Directions: Fair Speech Pattern: Clear Thought Process: Distracted Thought Content: positive for [place] Judgement: Fair Diagnostics Vital Signs (24Hr): Vital Signs - 24 hr 07/28/24 20:00 Respiratory Rate 18 BMI result Body Mass Index 29.3 Labs 07/17/24 14:49 07/26/24 16:18 Medications Medications Current Medications Acetaminophen (Acetaminophen 325 Mg Tablet) 650 mg PO Q6H PRN PRN Reason: Headache/Pain, Scale 1-10 Al Hydroxide/Mg Hydroxide (Magnesium Hydrox/Alum Hydrox 30 Ml Oral.Susp) 30 ml PO Q6H PRN PRN Reason: Heartburn/Nausea Clonidine HCl (Clonidine Hcl 0.1 Mg Tablet) 0.1 mg PO Q4H PRN; Protocol PRN Reason: Anxiety Last Admin: 07/26/24 20:25 Dose: 0.1 mg Hydroxyzine HCl (Hydroxyzine Hcl 25 Mg Tablet) 25 mg PO Q6H PRN PRN Reason: mild anxiety Last Admin: 07/27/24 18:27 Dose: 25 mg Magnesium Hydroxide (Milk Of Magnesia 30 Ml Oral.Susp) 30 ml PO DAILY PRN PRN Reason: Constipation Nicotine Polacrilex (Nicotine Polacrilex 2 Mg Gum) 4 mg BUCCAL Q2H PRN PRN Reason: Nicotine Cravings Last Admin: 07/28/24 19:05 Dose: 4 mg Olanzapine (Olanzapine 5 Mg Tablet) 5 mg PO Q4H PRN PRN Reason: severe agitation Pseudoephedrine HCl (Pseudoephedrine Hcl 30 Mg Tablet) 30 mg PO Q6H PRN PRN Reason: nasal congestion Last Admin: 07/26/24 13:49 Dose: 30 mg Risperidone (Risperidone Oral Karen 1 Mg/Ml Solution) 2 mg PO BID JESSICA Last Admin: 07/28/24 20:26 Dose: 2 mg Trazodone HCl (Trazodone Hcl 50 Mg Tablet) 50 mg PO BEDTIME MRX1 PRN PRN Reason: Insomnia Last Admin: 07/28/24 20:25 Dose: 50 mg Allergies Allergies Allergy/AdvReac Type Severity Reaction Status Date / Time strawberry Allergy Mild Itching Verified 07/17/24 14:35 cefazolin Allergy Unknown Itching Verified 07/17/24 14:35 sulfamethoxazole Allergy Unknown Itching Verified 07/17/24 14:35 [From Bactrim] trimethoprim [From Bactrim] Allergy Unknown Itching Verified 07/17/24 14:35 lorazepam [From Ativan] AdvReac Agitated Verified 07/17/24 14:35 lithium AdvReac Unknown other Uncoded 11/29/23 21:03 Assessment & Plan Assessment & Plan (1) Schizoaffective disorder, bipolar type: Status: Acute Code(s): F25.0 - Schizoaffective disorder, bipolar type (2) Anxiety: Status: Chronic Code(s): F41.9 - Anxiety disorder, unspecified Plan HPI: Patient is a 28-year-old male with history of schizoaffective disorder, bipolar type, history of polysubstance abuse who presents via EMS for manic and delusional behaviors. Patient is a poor historian, lying in bed, not opening his eyes, and offering little information. Initially, patient was talking with the nurse but 1 minute later, as soon as ticket writer walked in to talk with patient, he kept his eyes closed and refused to respond at all to ticket writer. A little later on on re-approached, patient is willing to briefly engage. He says that he is doing good. On inquiry, he says I have no idea why he is here in the hospital; ticket writer shared that his parents felt he was unsafe, disorganized and destroying property which he denies, even though ticket writer mentioned that his mother showed pictures of damaging his apartment. Patient refuses to sign in and remains on a 12 B. Patient took risperidone (he initially spit it out but then took it) this morning and says he will keep taking it but refuses the long-acting injectable. he denies any AVH, SI or HI. Patient's mother, Patsy who is also patient's healthcare proxy reported collateral. She says he has not been taking medications consistently has been very disorganized, has destroyed the apartment that she and her own and pay for, including smashing several television sets, multiple cell phones, refrigerators and other appliances and items, taking off all the door in the apartments (she provided pictures); she says he has been disorganized, not showering at all attending to ADLs, acting confused, and doing strange things such as snorting salt... Patient yelling at her, demanding things such as groceries which she buys and which he then proceeds to throwing the trash... Formulation/clinical reasoning: Patient has well documented history of schizoaffective disorder, bipolar type. Patient had very similar presentation on his last admission January 2024, but responded well with p.o. Risperdal and then on long-acting Risperdal product Uzedy (also on Wellbutrin XL 150 mg), organized, attending to ADLs, in good behavioral and impulse control and even developed some limited insight, briefly acknowledging that he did have paranoid delusions and auditory hallucinations prior to taking medication... However, patient has a long history of medication non-adherence and decompensation which is again resulting in need for psychiatric hospitalization. On the unit, he is with odd behaviors and malodorous (patient did ask for and ostensibly took a shower but emerged remaining malodorous and with matted hair). Patient is currently taking a low dose of Risperdal (though intermittently refused); however this dose is inadequate, patient does not want medication adjustments and refuses long-acting inectable Risperdal which is essential to sustained function in the community; he has no insight at all and ticket writer is convinced that patient will stop taking medications (or take them inadequately) immediately if he were to discharge. Invoke HCP: Patient has a signed healthcare proxy on file. Patient is disorganized and unable to function in the community; he does not have capacity to make medical decisions for himself and so ticket writer will invoke this healthcare proxy. Hospital course: 07/19 Patient difficult with which to engage and denies all psychiatric symptoms. He says I want to get off medication... Rec Therapist shares his family's concerns about his behaviors but patient tells ticket writer I was doing good at home... Patient talking to ticket writer holding his hand in front of his mouth. At 1 point patient stopped talking to ticket writer completely, keeping his eyes closed but then responded later. Patient does not want to stay in the hospital and Rec Therapist informed patient of involuntary commitment and invoking healthcare proxy. Patient's mother present who gave more collateral. She says that after his last discharge, he refused to get long-acting injectable and would not take medication. In March he took a low dose of Risperdal for 2 days but then not again until a couple of weeks later. At that time he took Risperdal 2 mg b.i.d. for 10 days and she reports it was the best days ever... That patient was doing well. However he stopped medication and again became disorganized. She says that patient has destroyed the apartment and shows ticket writer multiple pictures of broken televisions, other furniture, flipping over the refrigerator... Patient opened all the drawers throughout the apartment for some reason leaving them open; took off all the anterior doors off the hinges; she says that he broke the furnace somehow and the apartment complex was without heat; now the upstairs Renter is now moving out because does not want to have to deal with the heat going off. She says he took his bed out and put it in the yd; whenever she buys him food he immediately deems it into the trash. She said over the past couple weeks patient has been increasingly agitated and aggressive, once posturing aggressively towards his father; patient angrily threatened his mom yelling leave this house or I'll push you again... , yelling in her face with spittle coming out of his mouth.. Mother says she is scared, felt threatened and left. She said she called the police who know the family; she reports that patient postured aggressively towards 1 of the police officers but because the officer knew him, told his partner to stand down and they thus brought him to the hospital 07/20 pt remains psychotic, talking to himself; patient is difficult with which to engage. Nursing observing patient cheeking Risperdal and spitting out the garbage. Rec Therapist discussed taking Risperdal with patient who has some ambivalence and told ticket writer he would take it but then that he did not want it and needed something that would help [him] both sleep and drive... He then said he would take it even it increased dose of 2 mg b.i.d. -Patient remains with bizarre behaviors. Patient does not look at ticket writer when talking; during conversation he will intermittently stop talking in the middle of conversation, stare off, sometimes muttering to himself and then restart talking... Patient lining up sugar packets and cards on his bed in specific ways; in the milieu, ticket writer observed patient jumping on a chair and hopping around in the kitchen 07/21 Nursing continue to observe patient cheeking Risperdal than spitting it out. Remains difficult with which to engage and will sometimes not respond to ticket writer at all. Remains with odd, behaviors and internally preoccupied -switch to liquid Risperdal 07/22 Patient refused liquid Risperdal last night but took it this morning. Patient tells ticket writer he will keep taking the Risperdal, since he likes the taste of the liquid Risperdal. Patient remains with disorganized behaviors; patient laughing out loud. Rec Therapist observed patient going into the kitchen, taking something out of the refrigerator, sitting down in a chair and waiting a few sec and then putting it back in the refrigerator; patient would then going to his room, run around his bed and then back into the kitchen to repeat the same behavior. 07/23 remains disorganized, internally pre-occupied. took risperdal last night and today 07/24 Patient remains with very odd behaviors. On approach, patient turns and quickly walks away; ticket writer catches up with patient and he is willing to talk but turns at an angle and looks away while talking. He says he is good and that he just wants some paper to draw. Today patient had white sticky substance covering the length of multiple pigtails in his hair; ticket writer asked about this and patient said it was tooth paste. Rec Therapist asked what for and patient said I just woke up this way... He then walks away quickly. -has been taking liquid Risperdal; says he likes the limb and flavored 07/25 pt remains disorganized, psychotic. Explained to pt court tomorrow which he was surprised about (though has been informed). Pt asks to switch from risperdal to ADD medication; then asks to switch to happy medication. He likes the idea of restarting Wellbutrin. Patient stops talking to ticket writer and attends to internal stimuli, seemingly oblivious to writers presence...conversation never resumes. Instead, pt continues to draw smilie face's and hearts on a piece of paper over and over Impression: pt remains floridly psychotic with disorganized speech and behavior. Patient cannot distinguish reality from delusion. Pt is fully incapable of caring for himself in the community and would not be able to acquire food or prison on his own; and on his own he would be vulnerable to predation. He has no insight at all into his psychiatric illness or his need for medication and is only taking Liquid Risperdal since he likes the taste of it. Were patient to discharge today, he would very soon cease taking medication. 07/26 c/o nasal congestion; covid/rsv ordered and negative Pt initially refused Risperdal last night but then took it later on. Pt sitting in room, in dark, drawing something that resembles an equation, he says it's something i might make later on Pt said he wanted to talk about discharge and ticket writer reminded him about court today and that the fast food delivery driver would decide; he said he does not want to attend court due to anxiety Court civilly committed patient involuntarily to treatment with substituted judgment -will start with Uzedy 100mg; this will last for 1 month; anticipating it will take patient at least 1 month to stabilize; plan will be to give patient Uzedy 200mg prior to leaving which will give him a longer period of stability in the community 07/27: Active on unit. guarded. Pt responding with one word answers to questions. Patient reports feeling fine ; pt was informed of Uzedy injection ordered for today. Pt did not acknowledge T/W and proceeded to close eyes. Pt was encouraged to inform RN if he has any questions. 07/28 seems more withdrawn today-one word answers to nursing, questioning provider re dc- CTP 07/29 - better more engagable- talking getting up getting meals= needs adls- CTP Plan: Section 8 patient involuntary committed with substituted judgment Q 15 minute checks INVOKED HCP: File for affirmation of healthcare proxy (involuntary commitment) since patient remains without insight Continue Risperdal (liquid) 2 mg b.i.d. for several days to overlap Uzedy START Risperdal Uzedy 100 mg q30 days: Start on 07/27 COURT-ORDERED CAN NOT REFUSE -Prior to DC, after 30 days will follow-up with Risperdal Uzedy 200 mg Will likely eventually restart Wellbutrin once patient psychotic symptoms are stabilized Past med trials: Vraylar: Did not seem to work Medications on Court-ordered substituted judgment: Risperdal up to 6 mg Uzedy up to 200 mg q.2 months Clozaril Zyprexa Paliperidone/Invega including Trinza Ziprasidone Depakote Patient educated on: other ([facility], outpatient care) Informed Consent: further education needed Reason for continued inpatient stay Substantial Risk for: inability to function and rapid decompensation Time Spent With Patient Time: Total time managing care of this patient today ____ minutes.
[2024-07-29] MEDS: risperiDONE Oral Sol 1 MG/ML SOLUTION 2 MG PO ×2 (10:20→19:34)
[2024-07-29 10:24] VITALS: BP 121/70; PULSE 82; RESP 18; TEMP 36.4; O2SAT 98
[2024-07-29] MEDS: Pseudoephedrine HCL 30 MG TABLET PO (10:32)
[2024-07-29] MEDS: hydrOXYzine HCL 25 MG TABLET PO (19:05)
[2024-07-29] MEDS: cloNIDine HCL 0.1 MG TABLET PO (19:34)
[2024-07-29 20:00] VITALS: BP 144/86; PULSE 91; RESP 15; TEMP 36.1; O2SAT 98
[2024-07-30 08:00] VITALS: BP 111/52; PULSE 61; RESP 18; TEMP 36.9; O2SAT 97
[2024-07-30] MEDS: risperiDONE Oral Sol 1 MG/ML SOLUTION 2 MG PO ×2 (08:42→21:11)
--- NOTE | 2024-07-30 09:52 | HO.PSYCHPN ---
Subjective Subjective Date of Service: 07/30/24 Reason For Visit: Schizoaffective Disorder, bipolar type Interim History: Met with pt; discussed with team; reviewed chart pt a little more organized in that has conversation for longer. He says he got the shot (ANDRE of risperdal) and is wondering when he can go home. He currently accepts that this can be discussed with him and parents but would like to see pt closer to his regular self. Pt says he is suicidal and can he get on the antidepressant wellbutrin. No plans or intentions, just thoughts but really wants to start Wellbutrin to which mortgage loan underwriter agrees. Mental Status Exam Mental Status Exam Narrative: Pt is alert and oriented; behavior is more cooperative; still odd behaviors, talking to himself but can be appropriat for longer now; patient is not in distress; dressed in casual attire, twisting hair into pigtails; disheveled, malodorous; mood is described as suicidal thought affect calm; eye contact improved; Speech is with less latency and thought blocking; less psychomotor agitation/retardation intermittently present; thought process is goal directed but concrete; Thought content is not feeling suicidal, wanting medication; still internally preoccupied; +SI passive; no intent; no HI; Denies AVH however patient is internally preoccupied and talking to himself. Patients insight and judgment impaired. Diagnostics Vital Signs (24Hr): Vital Signs - 24 hr 07/29/24 10:24 07/29/24 20:00 07/30/24 08:00 Temperature 97.6 F 97 F 98.5 F Pulse Rate 82 91 61 Respiratory Rate 18 15 18 Blood Pressure 121/70 144/86 H 111/52 L Pulse Oximetry 98 98 97 Oxygen Delivery Method Room Air Room Air BMI result Body Mass Index 29.3 Labs 07/17/24 14:49 07/26/24 16:18 Medications Medications Current Medications Acetaminophen (Acetaminophen 325 Mg Tablet) 650 mg PO Q6H PRN PRN Reason: Headache/Pain, Scale 1-10 Al Hydroxide/Mg Hydroxide (Magnesium Hydrox/Alum Hydrox 30 Ml Oral.Susp) 30 ml PO Q6H PRN PRN Reason: Heartburn/Nausea Clonidine HCl (Clonidine Hcl 0.1 Mg Tablet) 0.1 mg PO Q4H PRN; Protocol PRN Reason: Anxiety Last Admin: 07/29/24 19:34 Dose: 0.1 mg Hydroxyzine HCl (Hydroxyzine Hcl 25 Mg Tablet) 25 mg PO Q6H PRN PRN Reason: mild anxiety/insomnia Last Admin: 07/29/24 19:05 Dose: 25 mg Magnesium Hydroxide (Milk Of Magnesia 30 Ml Oral.Susp) 30 ml PO DAILY PRN PRN Reason: Constipation Nicotine Polacrilex (Nicotine Polacrilex 2 Mg Gum) 4 mg BUCCAL Q2H PRN PRN Reason: Nicotine Cravings Last Admin: 07/28/24 19:05 Dose: 4 mg Olanzapine (Olanzapine 5 Mg Tablet) 5 mg PO Q4H PRN PRN Reason: severe agitation Risperidone (Risperidone Oral Karen 1 Mg/Ml Solution) 2 mg PO BID JESSICA Last Admin: 07/30/24 08:42 Dose: 2 mg Sodium Chloride (Sodium Chloride 0.65 % Nasal 44 Ml Sprbtl) 1 spray NOSTRIL-B Q1H PRN PRN Reason: Congestion Trazodone HCl (Trazodone Hcl 50 Mg Tablet) 50 mg PO BEDTIME PRN PRN Reason: Insomnia Allergies Allergies Allergy/AdvReac Type Severity Reaction Status Date / Time strawberry Allergy Mild Itching Verified 07/17/24 14:35 cefazolin Allergy Unknown Itching Verified 07/17/24 14:35 sulfamethoxazole Allergy Unknown Itching Verified 07/17/24 14:35 [From Bactrim] trimethoprim [From Bactrim] Allergy Unknown Itching Verified 07/17/24 14:35 lorazepam [From Ativan] AdvReac Agitated Verified 07/17/24 14:35 lithium AdvReac Unknown other Uncoded 11/29/23 21:03 Assessment & Plan Assessment & Plan (1) Schizoaffective disorder, bipolar type: Status: Acute Code(s): F25.0 - Schizoaffective disorder, bipolar type (2) Anxiety: Status: Chronic Code(s): F41.9 - Anxiety disorder, unspecified Plan HPI: Patient is a 28-year-old male with history of schizoaffective disorder, bipolar type, history of polysubstance abuse who presents via EMS for manic and delusional behaviors. Patient is a poor historian, lying in bed, not opening his eyes, and offering little information. Initially, patient was talking with the nurse but 1 minute later, as soon as mortgage loan underwriter walked in to talk with patient, he kept his eyes closed and refused to respond at all to mortgage loan underwriter. A little later on on re-approached, patient is willing to briefly engage. He says that he is doing good. On inquiry, he says I have no idea why he is here in the hospital; mortgage loan underwriter shared that his parents felt he was unsafe, disorganized and destroying property which he denies, even though mortgage loan underwriter mentioned that his mother showed pictures of damaging his apartment. Patient refuses to sign in and remains on a 12 B. Patient took risperidone (he initially spit it out but then took it) this morning and says he will keep taking it but refuses the long-acting injectable. he denies any AVH, SI or HI. Patient's mother, Patsy who is also patient's healthcare proxy reported collateral. She says he has not been taking medications consistently has been very disorganized, has destroyed the apartment that she and her own and pay for, including smashing several television sets, multiple cell phones, refrigerators and other appliances and items, taking off all the door in the apartments (she provided pictures); she says he has been disorganized, not showering at all attending to ADLs, acting confused, and doing strange things such as snorting salt... Patient yelling at her, demanding things such as groceries which she buys and which he then proceeds to throwing the trash... Formulation/clinical reasoning: Patient has well documented history of schizoaffective disorder, bipolar type. Patient had very similar presentation on his last admission January 2024, but responded well with p.o. Risperdal and then on long-acting Risperdal product Uzedy (also on Wellbutrin XL 150 mg), organized, attending to ADLs, in good behavioral and impulse control and even developed some limited insight, briefly acknowledging that he did have paranoid delusions and auditory hallucinations prior to taking medication... However, patient has a long history of medication non-adherence and decompensation which is again resulting in need for psychiatric hospitalization. On the unit, he is with odd behaviors and malodorous (patient did ask for and ostensibly took a shower but emerged remaining malodorous and with matted hair). Patient is currently taking a low dose of Risperdal (though intermittently refused); however this dose is inadequate, patient does not want medication adjustments and refuses long-acting inectable Risperdal which is essential to sustained function in the community; he has no insight at all and mortgage loan underwriter is convinced that patient will stop taking medications (or take them inadequately) immediately if he were to discharge. Invoke HCP: Patient has a signed healthcare proxy on file. Patient is disorganized and unable to function in the community; he does not have capacity to make medical decisions for himself and so mortgage loan underwriter will invoke this healthcare proxy. Hospital course: 07/19 Patient difficult with which to engage and denies all psychiatric symptoms. He says I want to get off medication... Cook Apprentice shares his family's concerns about his behaviors but patient tells mortgage loan underwriter I was doing good at home... Patient talking to mortgage loan underwriter holding his hand in front of his mouth. At 1 point patient stopped talking to mortgage loan underwriter completely, keeping his eyes closed but then responded later. Patient does not want to stay in the hospital and Cook Apprentice informed patient of involuntary commitment and invoking healthcare proxy. Patient's mother present who gave more collateral. She says that after his last discharge, he refused to get long-acting injectable and would not take medication. In March he took a low dose of Risperdal for 2 days but then not again until a couple of weeks later. At that time he took Risperdal 2 mg b.i.d. for 10 days and she reports it was the best days ever... That patient was doing well. However he stopped medication and again became disorganized. She says that patient has destroyed the apartment and shows mortgage loan underwriter multiple pictures of broken televisions, other furniture, flipping over the refrigerator... Patient opened all the drawers throughout the apartment for some reason leaving them open; took off all the anterior doors off the hinges; she says that he broke the furnace somehow and the apartment complex was without heat; now the upstairs Renter is now moving out because does not want to have to deal with the heat going off. She says he took his bed out and put it in the yd; whenever she buys him food he immediately deems it into the trash. She said over the past couple weeks patient has been increasingly agitated and aggressive, once posturing aggressively towards his father; patient angrily threatened his mom yelling leave this house or I'll push you again... , yelling in her face with spittle coming out of his mouth.. Mother says she is scared, felt threatened and left. She said she called the police who know the family; she reports that patient postured aggressively towards 1 of the police officers but because the officer knew him, told his partner to stand down and they thus brought him to the hospital 07/20 pt remains psychotic, talking to himself; patient is difficult with which to engage. Nursing observing patient cheeking Risperdal and spitting out the garbage. Cook Apprentice discussed taking Risperdal with patient who has some ambivalence and told mortgage loan underwriter he would take it but then that he did not want it and needed something that would help [him] both sleep and drive... He then said he would take it even it increased dose of 2 mg b.i.d. -Patient remains with bizarre behaviors. Patient does not look at mortgage loan underwriter when talking; during conversation he will intermittently stop talking in the middle of conversation, stare off, sometimes muttering to himself and then restart talking... Patient lining up sugar packets and cards on his bed in specific ways; in the milieu, mortgage loan underwriter observed patient jumping on a chair and hopping around in the kitchen 07/21 Nursing continue to observe patient cheeking Risperdal than spitting it out. Remains difficult with which to engage and will sometimes not respond to mortgage loan underwriter at all. Remains with odd, behaviors and internally preoccupied -switch to liquid Risperdal 07/22 Patient refused liquid Risperdal last night but took it this morning. Patient tells mortgage loan underwriter he will keep taking the Risperdal, since he likes the taste of the liquid Risperdal. Patient remains with disorganized behaviors; patient laughing out loud. Cook Apprentice observed patient going into the kitchen, taking something out of the refrigerator, sitting down in a chair and waiting a few sec and then putting it back in the refrigerator; patient would then going to his room, run around his bed and then back into the kitchen to repeat the same behavior. 07/23 remains disorganized, internally pre-occupied. took risperdal last night and today 07/24 Patient remains with very odd behaviors. On approach, patient turns and quickly walks away; mortgage loan underwriter catches up with patient and he is willing to talk but turns at an angle and looks away while talking. He says he is good and that he just wants some paper to draw. Today patient had white sticky substance covering the length of multiple pigtails in his hair; mortgage loan underwriter asked about this and patient said it was tooth paste. Cook Apprentice asked what for and patient said I just woke up this way... He then walks away quickly. -has been taking liquid Risperdal; says he likes the limb and flavored 07/25 pt remains disorganized, psychotic. Explained to pt court tomorrow which he was surprised about (though has been informed). Pt asks to switch from risperdal to ADD medication; then asks to switch to happy medication. He likes the idea of restarting Wellbutrin. Patient stops talking to mortgage loan underwriter and attends to internal stimuli, seemingly oblivious to writers presence...conversation never resumes. Instead, pt continues to draw smilie face's and hearts on a piece of paper over and over Impression: pt remains floridly psychotic with disorganized speech and behavior. Patient cannot distinguish reality from delusion. Pt is fully incapable of caring for himself in the community and would not be able to acquire food or group home on his own; and on his own he would be vulnerable to predation. He has no insight at all into his psychiatric illness or his need for medication and is only taking Liquid Risperdal since he likes the taste of it. Were patient to discharge today, he would very soon cease taking medication. 07/26 c/o nasal congestion; covid/rsv ordered and negative Pt initially refused Risperdal last night but then took it later on. Pt sitting in room, in dark, drawing something that resembles an equation, he says it's something i might make later on Pt said he wanted to talk about discharge and mortgage loan underwriter reminded him about court today and that the instrument/control technician would decide; he said he does not want to attend court due to anxiety Court civilly committed patient involuntarily to treatment with substituted judgment -will start with Uzedy 100mg; this will last for 1 month; anticipating it will take patient at least 1 month to stabilize; plan will be to give patient Uzedy 200mg prior to leaving which will give him a longer period of stability in the community 07/27: Active on unit. guarded. Pt responding with one word answers to questions. Patient reports feeling fine ; pt was informed of Uzedy injection ordered for today. Pt did not acknowledge T/W and proceeded to close eyes. Pt was encouraged to inform RN if he has any questions. 07/28 seems more withdrawn today-one word answers to nursing, questioning provider re dc- CTP 07/29 - better more engagable- talking getting up getting meals= needs adls- CTP 07/30 pt a little more organized in that has conversation for longer. He says he got the shot (ANDRE of risperdal) and is wondering when he can go home. He currently accepts that this can be discussed with him and parents but would like to see pt closer to his regular self. Pt says he is suicidal and can he get on the antidepressant wellbutrin. No plans or intentions, just thoughts but really wants to -start - wellbutrin -still no shower, and disheveled, internally pre-occupied and no insight -start Wellbutrin; pt stable enough continue po risperdal for couple days especially now starting wellbutrin; will soon dc Plan: Section 8/8a patient involuntary committed with substituted judgment Q 15 minute checks INVOKED HCP: File for affirmation of healthcare proxy (involuntary commitment) since patient remains without insight Continue Risperdal (liquid) 2 mg b.i.d. for several days to overlap Uzedy Risperdal Uzedy 100 mg q30 days: received on 07/27 COURT-ORDERED CAN NOT REFUSE -Prior to DC, after 30 days will follow-up with Risperdal Uzedy 200 mg start Wellbutrin ER 150mg; helped in past Past med trials: Vraylar: Did not seem to work Medications on Court-ordered substituted judgment: Risperdal up to 6 mg Uzedy up to 200 mg q.2 months Clozaril Zyprexa Paliperidone/Invega including Trinza Ziprasidone Depakote Guardian/Caregiver educated on: diagnosis and medication risk/benefits Informed Consent: understands, does not understand and further education needed Reason for continued inpatient stay Substantial Risk for: inability to function and rapid decompensation Time Spent With Patient Time: Total time managing care of this patient today ____ minutes.
[2024-07-30] MEDS: buPROPion HCl XL 150 MG TAB.ER.24H PO (12:31)
[2024-07-30] MEDS: Nicotine Polacrilex 2 MG GUM 4 MG BUCCAL (15:37)
[2024-07-30 20:00] VITALS: BP 107/57; PULSE 73; TEMP 36.9; O2SAT 96
[2024-07-30] MEDS: traZODone HCL 50 MG TABLET PO (21:11)
[2024-07-31 08:00] VITALS: BP 110/53; PULSE 88; RESP 16; TEMP 36.8; O2SAT 98
[2024-07-31] MEDS: risperiDONE Oral Sol 1 MG/ML SOLUTION 2 MG PO ×2 (09:31→20:35)
[2024-07-31] MEDS: buPROPion HCl XL 150 MG TAB.ER.24H PO (09:31)
--- NOTE | 2024-07-31 12:52 | P.PNPSI_ITS ---
Subjective Subjective Date of Service: 07/31/24 Reason For Visit: Schizoaffective Disorder, bipolar type Interim History: Met with patient; discussed with team; family meeting with mom SISSY ingram says at home he has nothing to do except for singing, dancing and having business ideas... Discussed mom's concern with Wellbutrin XL causing too much energy verses the SR Pt however likes the long acting XL 150mg since it lasts all day long. Had the same conversation with mom last admission when patient then also waned 150mg and disagreed with this mom's perspective; that time as now, adjusto writer operator, staff do not notice any negative effect. he felt that 100mg did not help his mood enough and did not last as long Patient had moment of insight and said my tyoughts are too mixed up in my head where i'm not sure what's real anymore....is risperdaone the right medicine? then i'll stay on it...i get lost in this imaginary world However moments later he said i don't think i have anything (any psych illness) and repeated he does not feel he needs to be on medications and does not need them; he also then said he was seeing ghosts...that would haunt me...but i have not seen it recently... But can not connect this with taking medications Mental Status Exam Mental Status Exam Narrative: Pt is alert and oriented; behavior is more cooperative; still odd behaviors, talking to himself but can be appropriate for longer now; patient is not in distress; dressed in casual attire, twisting hair into pigtails; disheveled, but improved hygiene; mood is described as ok eye contact improved; Speech is no longer leading; normal volume and rate; still psychomotor agitation intermittently present; thought process is more goal directed but concrete; Thought content is various things but also perseverative on discharge; does not think he has a psychiatric illness; still internally preoccupied; denies SI; no intent; no HI; Denies AVH however patient is internally preoccupied and talking to himself. Patients insight and judgment impaired. Diagnostics Vital Signs (24Hr): Vital Signs - 24 hr 07/30/24 20:00 Temperature 98.5 F Pulse Rate 73 Blood Pressure 107/57 L Pulse Oximetry 96 Oxygen Delivery Method Room Air BMI result Body Mass Index 29.3 Labs 07/17/24 14:49 07/26/24 16:18 Medications Medications Current Medications Acetaminophen (Acetaminophen 325 Mg Tablet) 650 mg PO Q6H PRN PRN Reason: Headache/Pain, Scale 1-10 Al Hydroxide/Mg Hydroxide (Magnesium Hydrox/Alum Hydrox 30 Ml Oral.Susp) 30 ml PO Q6H PRN PRN Reason: Heartburn/Nausea Bupropion HCl (Bupropion Hcl Xl 150 Mg Tab.Er.24h) 150 mg PO DAILY [facility] Last Admin: 07/31/24 09:31 Dose: 150 mg Clonidine HCl (Clonidine Hcl 0.1 Mg Tablet) 0.1 mg PO Q4H PRN; Protocol PRN Reason: Anxiety Last Admin: 07/29/24 19:34 Dose: 0.1 mg Hydroxyzine HCl (Hydroxyzine Hcl 25 Mg Tablet) 25 mg PO Q6H PRN PRN Reason: mild anxiety/insomnia Last Admin: 07/29/24 19:05 Dose: 25 mg Magnesium Hydroxide (Milk Of Magnesia 30 Ml Oral.Susp) 30 ml PO DAILY PRN PRN Reason: Constipation Nicotine Polacrilex (Nicotine Polacrilex 2 Mg Gum) 4 mg BUCCAL Q2H PRN PRN Reason: Nicotine Cravings Last Admin: 07/30/24 15:37 Dose: 4 mg Olanzapine (Olanzapine 5 Mg Tablet) 5 mg PO Q4H PRN PRN Reason: severe agitation Risperidone (Risperidone Oral Karen 1 Mg/Ml Solution) 2 mg PO BID [facility] Stop: 08/01/24 23:00 Last Admin: 07/31/24 09:31 Dose: 2 mg Sodium Chloride (Sodium Chloride 0.65 % Nasal 44 Ml Sprbtl) 1 spray NOSTRIL-B Q1H PRN PRN Reason: Congestion Trazodone HCl (Trazodone Hcl 50 Mg Tablet) 50 mg PO BEDTIME PRN PRN Reason: Insomnia Last Admin: 07/30/24 21:11 Dose: 50 mg Allergies Allergies Allergy/AdvReac Type Severity Reaction Status Date / Time strawberry Allergy Mild Itching Verified 07/17/24 14:35 cefazolin Allergy Unknown Itching Verified 07/17/24 14:35 sulfamethoxazole Allergy Unknown Itching Verified 07/17/24 14:35 [From Bactrim] trimethoprim [From Bactrim] Allergy Unknown Itching Verified 07/17/24 14:35 lorazepam [From Ativan] AdvReac Agitated Verified 07/17/24 14:35 lithium AdvReac Unknown other Uncoded 11/29/23 21:03 Assessment & Plan Assessment & Plan (1) Schizoaffective disorder, bipolar type: Status: Acute Code(s): F25.0 - Schizoaffective disorder, bipolar type (2) Anxiety: Status: Chronic Code(s): F41.9 - Anxiety disorder, unspecified Plan HPI: Patient is a 28-year-old male with history of schizoaffective disorder, bipolar type, history of polysubstance abuse who presents via EMS for manic and delusional behaviors. Patient is a poor historian, lying in bed, not opening his eyes, and offering little information. Initially, patient was talking with the nurse but 1 minute later, as soon as adjusto writer operator walked in to talk with patient, he kept his eyes closed and refused to respond at all to adjusto writer operator. A little later on on re-approached, patient is willing to briefly engage. He says that he is doing good. On inquiry, he says I have no idea why he is here in the hospital; adjusto writer operator shared that his parents felt he was unsafe, disorganized and destroying property which he denies, even though adjusto writer operator mentioned that his mother showed pictures of damaging his apartment. Patient refuses to sign in and remains on a 12 B. Patient took risperidone (he initially spit it out but then took it) this morning and says he will keep taking it but refuses the long- acting injectable. he denies any AVH, SI or HI. Patient's mother, Patsy who is also patient's healthcare proxy reported collateral. She says he has not been taking medications consistently has been very disorganized, has destroyed the apartment that she and her own and pay for, including smashing several television sets, multiple cell phones, refrigerators and other appliances and items, taking off all the door in the apartments (she provided pictures); she says he has been disorganized, not showering at all attending to ADLs, acting confused, and doing strange things such as snorting salt... Patient yelling at her, demanding things such as groceries which she buys and which he then proceeds to throwing the trash... Formulation/clinical reasoning: Patient has well documented history of schizoaffective disorder, bipolar type. Patient had very similar presentation on his last admission January 2024, but responded well with p.o. Risperdal and then on long-acting Risperdal product Uzedy (also on Wellbutrin XL 150 mg), organized, attending to ADLs, in good behavioral and impulse control and even developed some limited insight, briefly acknowledging that he did have paranoid delusions and auditory hallucinations prior to taking medication... However, patient has a long history of medication non-adherence and decompensation which is again resulting in need for psychiatric hospitalization. On the unit, he is with odd behaviors and malodorous (patient did ask for and ostensibly took a shower but emerged remaining malodorous and with matted hair). Patient is currently taking a low dose of Risperdal (though intermittently refused); however this dose is inadequate, patient does not want medication adjustments and refuses long-acting inectable Risperdal which is essential to sustained function in the community; he has no insight at all and adjusto writer operator is convinced that patient will stop taking medications (or take them inadequately) immediately if he were to discharge. Invoke HCP: Patient has a signed healthcare proxy on file. Patient is disorganized and unable to function in the community; he does not have capacity to make medical decisions for himself and so adjusto writer operator will invoke this healthcare proxy. Hospital course: / Patient difficult with which to engage and denies all psychiatric symptoms. He says I want to get off medication... Print Decorator shares his family's concerns about his behaviors but patient tells adjusto writer operator I was doing good at home... Patient talking to adjusto writer operator holding his hand in front of his mouth. At 1 point patient stopped talking to adjusto writer operator completely, keeping his eyes closed but then responded later. Patient does not want to stay in the hospital and Print Decorator informed patient of involuntary commitment and invoking healthcare proxy. Patient's mother present who gave more collateral. She says that after his last discharge, he refused to get long-acting injectable and would not take medication. In March he took a low dose of Risperdal for 2 days but then not again until a couple of weeks later. At that time he took Risperdal 2 mg b.i.d. for 10 days and she reports it was the best days ever... That patient was doing well. However he stopped medication and again became disorganized. She says that patient has destroyed the apartment and shows adjusto writer operator multiple pictures of broken televisions, other furniture, flipping over the refrigerator... Patient opened all the drawers throughout the apartment for some reason leaving them open; took off all the anterior doors off the hinges; she says that he broke the furnace somehow and the apartment complex was without heat; now the upstairs Renter is now moving out because does not want to have to deal with the heat going off. She says he took his bed out and put it in the yd; whenever she buys him food he immediately deems it into the trash. She said over the past couple weeks patient has been increasingly agitated and aggressive, once posturing aggressively towards his father; patient angrily threatened his mom yelling leave this house or I'll push you again... , yelling in her face with spittle coming out of his mouth.. Mother says she is scared, felt threatened and left. She said she called the police who know the family; she reports that patient postured aggressively towards 1 of the police officers but because the officer knew him, told his partner to stand down and they thus brought him to the hospital 07/20 pt remains psychotic, talking to himself; patient is difficult with which to engage. Nursing observing patient cheeking Risperdal and spitting out the garbage. Print Decorator discussed taking Risperdal with patient who has some ambivalence and told adjusto writer operator he would take it but then that he did not want it and needed something that would help [him] both sleep and drive... He then said he would take it even it increased dose of 2 mg b.i.d. -Patient remains with bizarre behaviors. Patient does not look at adjusto writer operator when talking; during conversation he will intermittently stop talking in the middle of conversation, stare off, sometimes muttering to himself and then restart talking... Patient lining up sugar packets and cards on his bed in specific ways; in the milieu, adjusto writer operator observed patient jumping on a chair and hopping around in the kitchen 07/21 Nursing continue to observe patient cheeking Risperdal than spitting it out. Remains difficult with which to engage and will sometimes not respond to adjusto writer operator at all. Remains with odd, behaviors and internally preoccupied -switch to liquid Risperdal 07/22 Patient refused liquid Risperdal last night but took it this morning. Patient tells adjusto writer operator he will keep taking the Risperdal, since he likes the taste of the liquid Risperdal. Patient remains with disorganized behaviors; patient laughing out loud. Print Decorator observed patient going into the kitchen, taking something out of the refrigerator, sitting down in a chair and waiting a few sec and then putting it back in the refrigerator; patient would then going to his room, run around his bed and then back into the kitchen to repeat the same behavior. 07/23 remains disorganized, internally pre-occupied. took risperdal last night and today 07/24 Patient remains with very odd behaviors. On approach, patient turns and quickly walks away; adjusto writer operator catches up with patient and he is willing to talk but turns at an angle and looks away while talking. He says he is good and that he just wants some paper to draw. Today patient had white sticky substance covering the length of multiple pigtails in his hair; adjusto writer operator asked about this and patient said it was tooth paste. Print Decorator asked what for and patient said I just woke up this way... He then walks away quickly. -has been taking liquid Risperdal; says he likes the limb and flavored 07/25 pt remains disorganized, psychotic. Explained to pt court tomorrow which he was surprised about (though has been informed). Pt asks to switch from risperdal to ADD medication; then asks to switch to happy medication. He likes the idea of restarting Wellbutrin. Patient stops talking to adjusto writer operator and attends to internal stimuli, seemingly oblivious to writers presence...conversation never resumes. Instead, pt continues to draw smilie face's and hearts on a piece of paper over and over Impression: pt remains floridly psychotic with disorganized speech and behavior. Patient cannot distinguish reality from delusion. Pt is fully incapable of caring for himself in the community and would not be able to acquire food or prison on his own; and on his own he would be vulnerable to predation. He has no insight at all into his psychiatric illness or his need for medication and is only taking Liquid Risperdal since he likes the taste of it. Were patient to discharge today, he would very soon cease taking medication. 07/26 c/o nasal congestion; covid/rsv ordered and negative Pt initially refused Risperdal last night but then took it later on. Pt sitting in room, in dark, drawing something that resembles an equation, he says it's something i might make later on Pt said he wanted to talk about discharge and adjusto writer operator reminded him about court today and that the gang mower operator would decide; he said he does not want to attend court due to anxiety Court civilly committed patient involuntarily to treatment with substituted judgment -will start with Uzedy 100mg; this will last for 1 month; anticipating it will take patient at least 1 month to stabilize; plan will be to give patient Uzedy 200mg prior to leaving which will give him a longer period of stability in the community 07/27: Active on unit. guarded. Pt responding with one word answers to questions. Patient reports feeling fine ; pt was informed of Uzedy injection ordered for today. Pt did not acknowledge T/W and proceeded to close eyes. Pt was encouraged to inform RN if he has any questions. 07/28 seems more withdrawn today-one word answers to nursing, questioning provider re dc- CTP 07/29 - better more engagable- talking getting up getting meals= needs adls- CTP 07/30 pt a little more organized in that has conversation for longer. He says he got the shot (ANDRE of risperdal) and is wondering when he can go home. He currently accepts that this can be discussed with him and parents but would like to see pt closer to his regular self. Pt says he is suicidal and can he get on the antidepressant wellbutrin. No plans or intentions, just thoughts but really wants to -start - wellbutrin -still no shower, and disheveled, internally pre-occupied and no insight -start Wellbutrin; pt stable enough continue po risperdal for couple days especially now starting wellbutrin; will soon dc 07/31 SI resolved. although some improvement patient remains disorganized and starts off saying at home he has nothing to do except for singing, dancing and having business ideas... Mom present Discussed mom's concern with Wellbutrin XL causing too much energy verses the SR. Pt however likes the long acting XL 150mg since it lasts all day long. Had the same conversation with mom last admission when patient then also waned 150mg and disagreed with this mom's perspective; that time as now, adjusto writer operator, staff do not notice any negative effect. he felt that 100mg did not help his mood enough and did not last as long Patient had moment of insight and said my tyoughts are too mixed up in my head where i'm not sure what's real anymore....is risperdaone the right medicine? then i'll stay on it...i get lost in this imaginary world However moments later he said i don't think i have anything (any psych illness) and repeated he does not feel he Plan: Section 8/ patient involuntary committed with substituted judgment Q 15 minute checks INVOKED HCP: File for affirmation of healthcare proxy (involuntary commitment) since patient remains without insight Medications: Continue Risperdal (liquid) 2 mg b.i.d. for several days to overlap Uzedy Risperdal Uzedy 100 mg q30 days: received on 07/27 COURT-ORDERED CAN NOT REFUSE -Prior to DC, after 30 days will follow-up with Risperdal Uzedy 200 mg start Wellbutrin ER 150mg; helped in past Past med trials: Vraylar: Did not seem to work Medications on Court-ordered substituted judgment: Risperdal up to 6 mg Uzedy up to 200 mg q.2 months Clozaril Zyprexa Paliperidone/Invega including Trinza Ziprasidone Depakote Patient educated on: diagnosis, medication risk/benefits and therapeutic strategies Informed Consent: does not understand Reason for continued inpatient stay Substantial Risk for: inability to function Time Spent With Patient Time: Total time managing care of this patient today ____ minutes.
[2024-07-31] MEDS: Nicotine Polacrilex 2 MG GUM 4 MG BUCCAL (18:50)
[2024-07-31 19:43] VITALS: BP 120/64; PULSE 89; TEMP 36.9; O2SAT 99
[2024-07-31] MEDS: traZODone HCL 50 MG TABLET PO (20:35)
[2024-08-01] MEDS: risperiDONE Oral Sol 1 MG/ML SOLUTION 2 MG PO ×2 (08:41→21:26)
[2024-08-01] MEDS: buPROPion HCl XL 150 MG TAB.ER.24H PO (08:41)
[2024-08-01 08:49] VITALS: BP 120/66; PULSE 78; RESP 16; TEMP 37; O2SAT 98
[2024-08-01] MEDS: Nicotine Polacrilex 2 MG GUM 4 MG BUCCAL (09:47)
[2024-08-01 13:23] VITALS: BP 123/67
[2024-08-01] MEDS: cloNIDine HCL 0.1 MG TABLET PO ×2 (13:23→14:50)
[2024-08-01 14:50] VITALS: BP 122/58
[2024-08-01] MEDS: OLANZapine 5 MG TABLET PO (16:54)
[2024-08-01] MEDS: Nicotine 21 MG PATCH.TD24 TRANSDERMA (17:56)
[2024-08-01] MEDS: QUEtiapine Fumarate 50 MG TABLET PO (18:03)
[2024-08-01 20:00] VITALS: BP 113/61; PULSE 81; TEMP 36.7; O2SAT 98
--- NOTE | 2024-08-01 20:13 | P.PNPSI_ITS ---
Subjective Subjective Date of Service: 08/01/24 Reason For Visit: Schizoaffective Disorder, bipolar type Interim History: Met with patient; discussed with team Remains disorganized with behavior, internally preoccupied, odd, dancing around the unit; talking to himself at length. met with his mother and patient says he is fine with her being his healthcare proxy in making medical decisions. Patient denies all psychiatric illness and does not think he has a psychiatric problem or that he needs medications. Asks if he can go home today, temporarily accepting that he can not - Mental Status Exam Mental Status Exam Narrative: Pt is alert and oriented; behavior is more cooperative; still odd behaviors, talking to himself but can be appropriate for longer now; patient is not in distress; dressed in casual attire, twisting hair into pigtails; disheveled, but improved hygiene; mood is described as good eye contact improved; Speech is no longer leading; normal volume and rate; still psychomotor agitation intermittently present; thought process is more goal directed but concrete; Thought content is various things but also perseverative on discharge; does not think he has a psychiatric illness; still internally preoccupied; denies SI; no intent; no HI; Denies AVH however patient is internally preoccupied and talking to himself. Patients insight and judgment impaired. Diagnostics Vital Signs (24Hr): Vital Signs - 24 hr 08/01/24 08:49 08/01/24 13:23 08/01/24 14:50 Temperature 98.6 F Pulse Rate 78 Respiratory Rate 16 Blood Pressure 120/66 123/67 122/58 L Pulse Oximetry 98 Oxygen Delivery Method Room Air BMI result Body Mass Index 29.3 Labs 07/17/24 14:49 07/26/24 16:18 Medications Medications Current Medications Acetaminophen (Acetaminophen 325 Mg Tablet) 650 mg PO Q6H PRN PRN Reason: Headache/Pain, Scale 1-10 Al Hydroxide/Mg Hydroxide (Magnesium Hydrox/Alum Hydrox 30 Ml Oral.Susp) 30 ml PO Q6H PRN PRN Reason: Heartburn/Nausea Clonidine HCl (Clonidine Hcl 0.1 Mg Tablet) 0.1 mg PO Q4H PRN; Protocol PRN Reason: Anxiety Last Admin: 08/01/24 14:50 Dose: 0.1 mg Hydroxyzine HCl (Hydroxyzine Hcl 25 Mg Tablet) 25 mg PO Q6H PRN PRN Reason: mild anxiety/insomnia Last Admin: 07/29/24 19:05 Dose: 25 mg Magnesium Hydroxide (Milk Of Magnesia 30 Ml Oral.Susp) 30 ml PO DAILY PRN PRN Reason: Constipation Nicotine (Nicotine 21 Mg Patch.Td24) 21 mg TRANSDERMA DAILY PRN PRN Reason: smoking cessation Last Admin: 08/01/24 17:56 Dose: 21 mg Nicotine Polacrilex (Nicotine Polacrilex 2 Mg Gum) 4 mg BUCCAL Q2H PRN PRN Reason: Nicotine Cravings Last Admin: 08/01/24 09:47 Dose: 4 mg Olanzapine (Olanzapine 5 Mg Tablet) 5 mg PO Q4H PRN PRN Reason: severe agitation Last Admin: 08/01/24 16:54 Dose: 5 mg Quetiapine Fumarate (Quetiapine Fumarate 50 Mg Tablet) 50 mg PO BID PRN PRN Reason: mod to severe anxiety Last Admin: 08/01/24 18:03 Dose: 50 mg Risperidone (Risperidone Oral Karen 1 Mg/Ml Solution) 2 mg PO BID JESSICA Stop: 08/01/24 23:00 Last Admin: 08/01/24 08:41 Dose: 2 mg Sodium Chloride (Sodium Chloride 0.65 % Nasal 44 Ml Sprbtl) 1 spray NOSTRIL-B Q1H PRN PRN Reason: Congestion Trazodone HCl (Trazodone Hcl 50 Mg Tablet) 50 mg PO BEDTIME PRN PRN Reason: Insomnia Last Admin: 07/31/24 20:35 Dose: 50 mg Allergies Allergies Allergy/AdvReac Type Severity Reaction Status Date / Time strawberry Allergy Mild Itching Verified 07/17/24 14:35 cefazolin Allergy Unknown Itching Verified 07/17/24 14:35 sulfamethoxazole Allergy Unknown Itching Verified 07/17/24 14:35 [From Bactrim] trimethoprim [From Bactrim] Allergy Unknown Itching Verified 07/17/24 14:35 lorazepam [From Ativan] AdvReac Agitated Verified 07/17/24 14:35 lithium AdvReac Unknown other Uncoded 11/29/23 21:03 Assessment & Plan Assessment & Plan (1) Schizoaffective disorder, bipolar type: Status: Acute Code(s): F25.0 - Schizoaffective disorder, bipolar type (2) Anxiety: Status: Chronic Code(s): F41.9 - Anxiety disorder, unspecified Plan HPI: Patient is a 28-year-old male with history of schizoaffective disorder, bipolar type, history of polysubstance abuse who presents via EMS for manic and delusional behaviors. Patient is a poor historian, lying in bed, not opening his eyes, and offering little information. Initially, patient was talking with the nurse but 1 minute later, as soon as internal communications writer walked in to talk with patient, he kept his eyes closed and refused to respond at all to internal communications writer. A little later on on re-approached, patient is willing to briefly engage. He says that he is doing good. On inquiry, he says I have no idea why he is here in the hospital; internal communications writer shared that his parents felt he was unsafe, disorganized and destroying property which he denies, even though internal communications writer mentioned that his mother showed pictures of damaging his apartment. Patient refuses to sign in and remains on a 12 B. Patient took risperidone (he initially spit it out but then took it) this morning and says he will keep taking it but refuses the long- acting injectable. he denies any AVH, SI or HI. Patient's mother, Patsy who is also patient's healthcare proxy reported collateral. She says he has not been taking medications consistently has been very disorganized, has destroyed the apartment that she and her own and pay for, including smashing several television sets, multiple cell phones, refrigerators and other appliances and items, taking off all the door in the apartments (she provided pictures); she says he has been disorganized, not showering at all attending to ADLs, acting confused, and doing strange things such as snorting salt... Patient yelling at her, demanding things such as groceries which she buys and which he then proceeds to throwing the trash... Formulation/clinical reasoning: Patient has well documented history of schizoaffective disorder, bipolar type. Patient had very similar presentation on his last admission January 2024, but responded well with p.o. Risperdal and then on long-acting Risperdal product Uzedy (also on Wellbutrin XL 150 mg), organized, attending to ADLs, in good behavioral and impulse control and even developed some limited insight, briefly acknowledging that he did have paranoid delusions and auditory hallucinations prior to taking medication... However, patient has a long history of medication non-adherence and decompensation which is again resulting in need for psychiatric hospitalization. On the unit, he is with odd behaviors and malodorous (patient did ask for and ostensibly took a shower but emerged remaining malodorous and with matted hair). Patient is currently taking a low dose of Risperdal (though intermittently refused); however this dose is inadequate, patient does not want medication adjustments and refuses long-acting inectable Risperdal which is essential to sustained function in the community; he has no insight at all and internal communications writer is convinced that patient will stop taking medications (or take them inadequately) immediately if he were to discharge. Invoke HCP: Patient has a signed healthcare proxy on file. Patient is disorganized and unable to function in the community; he does not have capacity to make medical decisions for himself and so internal communications writer will invoke this healthcare proxy. Hospital course: 07/19 Patient difficult with which to engage and denies all psychiatric symptoms. He says I want to get off medication... Head Of Marketing shares his family's concerns about his behaviors but patient tells internal communications writer I was doing good at home... Patient talking to internal communications writer holding his hand in front of his mouth. At 1 point patient stopped talking to internal communications writer completely, keeping his eyes closed but then responded later. Patient does not want to stay in the hospital and Head Of Marketing informed patient of involuntary commitment and invoking healthcare proxy. Patient's mother present who gave more collateral. She says that after his last discharge, he refused to get long-acting injectable and would not take medication. In March he took a low dose of Risperdal for 2 days but then not again until a couple of weeks later. At that time he took Risperdal 2 mg b.i.d. for 10 days and she reports it was the best days ever... That patient was doing well. However he stopped medication and again became disorganized. She says that patient has destroyed the apartment and shows internal communications writer multiple pictures of broken televisions, other furniture, flipping over the refrigerator... Patient opened all the drawers throughout the apartment for some reason leaving them open; took off all the anterior doors off the hinges; she says that he broke the furnace somehow and the apartment complex was without heat; now the upstairs Renter is now moving out because does not want to have to deal with the heat going off. She says he took his bed out and put it in the yd; whenever she buys him food he immediately deems it into the trash. She said over the past couple weeks patient has been increasingly agitated and aggressive, once posturing aggressively towards his father; patient angrily threatened his mom yelling leave this house or I'll push you again... , yelling in her face with spittle coming out of his mouth.. Mother says she is scared, felt threatened and left. She said she called the police who know the family; she reports that patient postured aggressively towards 1 of the police officers but because the officer knew him, told his partner to stand down and they thus brought him to the hospital 07/20 pt remains psychotic, talking to himself; patient is difficult with which to engage. Nursing observing patient cheeking Risperdal and spitting out the garbage. Head Of Marketing discussed taking Risperdal with patient who has some ambivalence and told internal communications writer he would take it but then that he did not want it and needed something that would help [him] both sleep and drive... He then said he would take it even it increased dose of 2 mg b.i.d. -Patient remains with bizarre behaviors. Patient does not look at internal communications writer when talking; during conversation he will intermittently stop talking in the middle of conversation, stare off, sometimes muttering to himself and then restart talking... Patient lining up sugar packets and cards on his bed in specific ways; in the milieu, internal communications writer observed patient jumping on a chair and hopping around in the kitchen 07/21 Nursing continue to observe patient cheeking Risperdal than spitting it out. Remains difficult with which to engage and will sometimes not respond to internal communications writer at all. Remains with odd, behaviors and internally preoccupied -switch to liquid Risperdal 07/22 Patient refused liquid Risperdal last night but took it this morning. Patient tells internal communications writer he will keep taking the Risperdal, since he likes the taste of the liquid Risperdal. Patient remains with disorganized behaviors; patient laughing out loud. Head Of Marketing observed patient going into the kitchen, taking something out of the refrigerator, sitting down in a chair and waiting a few sec and then putting it back in the refrigerator; patient would then going to his room, run around his bed and then back into the kitchen to repeat the same behavior. 07/23 remains disorganized, internally pre-occupied. took risperdal last night and today 07/24 Patient remains with very odd behaviors. On approach, patient turns and quickly walks away; internal communications writer catches up with patient and he is willing to talk but turns at an angle and looks away while talking. He says he is good and that he just wants some paper to draw. Today patient had white sticky substance covering the length of multiple pigtails in his hair; internal communications writer asked about this and patient said it was tooth paste. Head Of Marketing asked what for and patient said I just woke up this way... He then walks away quickly. -has been taking liquid Risperdal; says he likes the limb and flavored 07/25 pt remains disorganized, psychotic. Explained to pt court tomorrow which he was surprised about (though has been informed). Pt asks to switch from risperdal to ADD medication; then asks to switch to happy medication. He likes the idea of restarting Wellbutrin. Patient stops talking to internal communications writer and attends to internal stimuli, seemingly oblivious to writers presence...conversation never resumes. Instead, pt continues to draw smilie face's and hearts on a piece of paper over and over Impression: pt remains floridly psychotic with disorganized speech and behavior. Patient cannot distinguish reality from delusion. Pt is fully incapable of caring for himself in the community and would not be able to acquire food or usp on his own; and on his own he would be vulnerable to predation. He has no insight at all into his psychiatric illness or his need for medication and is only taking Liquid Risperdal since he likes the taste of it. Were patient to discharge today, he would very soon cease taking medication. 07/26 c/o nasal congestion; covid/rsv ordered and negative Pt initially refused Risperdal last night but then took it later on. Pt sitting in room, in dark, drawing something that resembles an equation, he says it's something i might make later on Pt said he wanted to talk about discharge and internal communications writer reminded him about court today and that the math instructor would decide; he said he does not want to attend court due to anxiety Court civilly committed patient involuntarily to treatment with substituted judgment -will start with Uzedy 100mg; this will last for 1 month; anticipating it will take patient at least 1 month to stabilize; plan will be to give patient Uzedy 200mg prior to leaving which will give him a longer period of stability in the community 07/27: Active on unit. guarded. Pt responding with one word answers to questions. Patient reports feeling fine ; pt was informed of Uzedy injection ordered for today. Pt did not acknowledge T/W and proceeded to close eyes. Pt was encouraged to inform RN if he has any questions. 07/28 seems more withdrawn today-one word answers to nursing, questioning provider re dc- CTP 07/29 - better more engagable- talking getting up getting meals= needs adls- CTP 07/30 pt a little more organized in that has conversation for longer. He says he got the shot (ANDRE of risperdal) and is wondering when he can go home. He currently accepts that this can be discussed with him and parents but would like to see pt closer to his regular self. Pt says he is suicidal and can he get on the antidepressant wellbutrin. No plans or intentions, just thoughts but really wants to -start - wellbutrin -still no shower, and disheveled, internally pre-occupied and no insight -start Wellbutrin; pt stable enough continue po risperdal for couple days especially now starting wellbutrin; will soon dc 07/31 SI resolved. although some improvement patient remains disorganized and starts off saying at home he has nothing to do except for singing, dancing and having business ideas... Mom present Discussed mom's concern with Wellbutrin XL causing too much energy verses the SR. Pt however likes the long acting XL 150mg since it lasts all day long. Had the same conversation with mom last admission when patient then also waned 150mg and disagreed with this mom's perspective; that time as now, internal communications writer, staff do not notice any negative effect. he felt that 100mg did not help his mood enough and did not last as long -Patient had moment of insight and said my tyoughts are too mixed up in my head where i'm not sure what's real anymore....is risperdaone the right medicine? then i'll stay on it...i get lost in this imaginary world -However moments later he said i don't think i have anything (any psych illness) and repeated he does not feel he 08/01Remains disorganized with behavior, internally preoccupied, odd, dancing around the unit; talking to himself at length. met with his mother and patient says he is fine with her being his healthcare proxy in making medical decisions. Patient denies all psychiatric illness and does not think he has a psychiatric problem or that he needs medications. Asks if he can go home today, temporarily accepting that he can not - Plan: Section 8/ patient involuntary committed with substituted judgment INVOKED HCP: File for affirmation of healthcare proxy (involuntary commitment) since patient remains without insight Q 15 minute checks Medications: DC Risperdal (liquid) 2 mg b.i.d. will start up again if psychosis worsens Risperdal Uzedy 100 mg q30 days: received on 07/27 -Prior to DC, after 30 days will follow-up with Risperdal Uzedy 200 mg Wellbutrin ER 150mg; Past med trials: Vraylar: Did not seem to work Medications on Court-ordered substituted judgment: Risperdal up to 6 mg Uzedy up to 200 mg q.2 months Clozaril Zyprexa Paliperidone/Invega including Trinza Ziprasidone Depakote Patient educated on: diagnosis, medication risk/benefits and therapeutic strategies Informed Consent: does not understand Reason for continued inpatient stay Substantial Risk for: inability to function and rapid decompensation Time Spent With Patient Time: Total time managing care of this patient today ____ minutes.
[2024-08-02 07:00] VITALS: BMI 28.8
[2024-08-02 10:22] VITALS: BP 97/53; PULSE 128; RESP 18; TEMP 36.2; O2SAT 97
[2024-08-02] MEDS: Nicotine Polacrilex 2 MG GUM 4 MG BUCCAL ×2 (11:52→14:59)
[2024-08-02] MEDS: QUEtiapine Fumarate 50 MG TABLET PO ×2 (12:29→17:54)
[2024-08-02 15:49] VITALS: BP 131/68
[2024-08-02] MEDS: cloNIDine HCL 0.1 MG TABLET PO ×2 (15:49→19:19)
[2024-08-02] MEDS: Nicotine 21 MG PATCH.TD24 TRANSDERMA (15:53)
[2024-08-02 19:19] VITALS: BP 110/58
[2024-08-02 20:00] VITALS: BP 125/71; PULSE 125; RESP 16; TEMP 36.8; O2SAT 97
[2024-08-03] MEDS: QUEtiapine Fumarate 50 MG TABLET PO (13:04)
[2024-08-03] MEDS: Nicotine Polacrilex 2 MG GUM 4 MG BUCCAL (14:42)
[2024-08-03] MEDS: hydrOXYzine HCL 25 MG TABLET PO (18:21)
--- NOTE | 2024-08-03 18:45 | P.PNPSI_ITS ---
Subjective Subjective Date of Service: 08/02/24 Reason For Visit: Schizoaffective Disorder, bipolar type Interim History: Late entry note for patient seen on 08/02; discussed with team Patient wanted Wellbutrin to be discontinued, saying it makes him anxious and that he feels better without it. Also that he likes Seroquel which was started for anxiety and says this is helping. Patient says he is fine asks for discharge but temporarily accept not possible. Remains internally preoccupied talking to himself Mental Status Exam Mental Status Exam Narrative: Pt is alert and oriented; behavior is more cooperative; still odd behaviors, talking to himself, laughing inappropriate times; can only tolerate short interactions; patient is not in distress; dressed in casual attire, messy hair and disheveled, but improved hygiene; mood is described as good eye contact improved; Speech is no longer leading; normal volume and rate; still psychomotor agitation intermittently present; thought process is more goal directed but concrete; Thought content is various things, internally preoccupied; also perseverative on discharge; does not think he has a psychiatric illness; denies SI; no intent; no HI; Denies AVH however patient is consistently responding to internal stimuli. Patients insight and judgment impaired. Diagnostics Vital Signs (24Hr): Vital Signs - 24 hr 08/02/24 19:19 08/02/24 20:00 Temperature 98.2 F Pulse Rate 125 H Respiratory Rate 16 Blood Pressure 110/58 L 125/71 Pulse Oximetry 97 Oxygen Delivery Method Room Air BMI result Body Mass Index 28.8 Labs 07/17/24 14:49 07/26/24 16:18 Medications Medications Current Medications Acetaminophen (Acetaminophen 325 Mg Tablet) 650 mg PO Q6H PRN PRN Reason: Headache/Pain, Scale 1-10 Al Hydroxide/Mg Hydroxide (Magnesium Hydrox/Alum Hydrox 30 Ml Oral.Susp) 30 ml PO Q6H PRN PRN Reason: Heartburn/Nausea Bupropion HCl (Bupropion Hcl 75 Mg Tablet) 75 mg PO DAILY JESSICA Clonidine HCl (Clonidine Hcl 0.1 Mg Tablet) 0.1 mg PO Q4H PRN; Protocol PRN Reason: Anxiety Last Admin: 08/02/24 19:19 Dose: 0.1 mg Hydroxyzine HCl (Hydroxyzine Hcl 25 Mg Tablet) 25 mg PO Q6H PRN PRN Reason: mild anxiety/insomnia Last Admin: 08/03/24 18:21 Dose: 25 mg Magnesium Hydroxide (Milk Of Magnesia 30 Ml Oral.Susp) 30 ml PO DAILY PRN PRN Reason: Constipation Nicotine (Nicotine 21 Mg Patch.Td24) 21 mg TRANSDERMA DAILY PRN PRN Reason: smoking cessation Last Admin: 08/02/24 15:53 Dose: 21 mg Nicotine Polacrilex (Nicotine Polacrilex 2 Mg Gum) 4 mg BUCCAL Q2H PRN PRN Reason: Nicotine Cravings Last Admin: 08/03/24 14:42 Dose: 4 mg Olanzapine (Olanzapine 5 Mg Tablet) 5 mg PO Q4H PRN PRN Reason: severe agitation Last Admin: 08/01/24 16:54 Dose: 5 mg Quetiapine Fumarate (Quetiapine Fumarate 50 Mg Tablet) 50 mg PO BID PRN PRN Reason: mod to severe anxiety Last Admin: 08/03/24 13:04 Dose: 50 mg Sodium Chloride (Sodium Chloride 0.65 % Nasal 44 Ml Sprbtl) 1 spray NOSTRIL-B Q1H PRN PRN Reason: Congestion Trazodone HCl (Trazodone Hcl 50 Mg Tablet) 50 mg PO BEDTIME PRN PRN Reason: Insomnia Last Admin: 07/31/24 20:35 Dose: 50 mg Allergies Allergies Allergy/AdvReac Type Severity Reaction Status Date / Time strawberry Allergy Mild Itching Verified 07/17/24 14:35 cefazolin Allergy Unknown Itching Verified 07/17/24 14:35 sulfamethoxazole Allergy Unknown Itching Verified 07/17/24 14:35 [From Bactrim] trimethoprim [From Bactrim] Allergy Unknown Itching Verified 07/17/24 14:35 lorazepam [From Ativan] AdvReac Agitated Verified 07/17/24 14:35 lithium AdvReac Unknown other Uncoded 11/29/23 21:03 Assessment & Plan Assessment & Plan (1) Schizoaffective disorder, bipolar type: Status: Acute Code(s): F25.0 - Schizoaffective disorder, bipolar type (2) Anxiety: Status: Chronic Code(s): F41.9 - Anxiety disorder, unspecified Plan HPI: Patient is a 28-year-old male with history of schizoaffective disorder, bipolar type, history of polysubstance abuse who presents via EMS for manic and delusional behaviors. Patient is a poor historian, lying in bed, not opening his eyes, and offering little information. Initially, patient was talking with the nurse but 1 minute later, as soon as teletypewriter operator walked in to talk with patient, he kept his eyes closed and refused to respond at all to teletypewriter operator. A little later on on re-approached, patient is willing to briefly engage. He says that he is doing good. On inquiry, he says I have no idea why he is here in the hospital; teletypewriter operator shared that his parents felt he was unsafe, disorganized and destroying property which he denies, even though teletypewriter operator mentioned that his mother showed pictures of damaging his apartment. Patient refuses to sign in and remains on a 12 B. Patient took risperidone (he initially spit it out but then took it) this morning and says he will keep taking it but refuses the long- acting injectable. he denies any AVH, SI or HI. Patient's mother, Patsy who is also patient's healthcare proxy reported collateral. She says he has not been taking medications consistently has been very disorganized, has destroyed the apartment that she and her own and pay for, including smashing several television sets, multiple cell phones, refrigerators and other appliances and items, taking off all the door in the apartments (she provided pictures); she says he has been disorganized, not showering at all attending to ADLs, acting confused, and doing strange things such as snorting salt... Patient yelling at her, demanding things such as groceries which she buys and which he then proceeds to throwing the trash... Formulation/clinical reasoning: Patient has well documented history of schizoaffective disorder, bipolar type. Patient had very similar presentation on his last admission January 2024, but responded well with p.o. Risperdal and then on long-acting Risperdal product Uzedy (also on Wellbutrin XL 150 mg), organized, attending to ADLs, in good behavioral and impulse control and even developed some limited insight, briefly acknowledging that he did have paranoid delusions and auditory hallucinations prior to taking medication... However, patient has a long history of medication non-adherence and decompensation which is again resulting in need for psychiatric hospitalization. On the unit, he is with odd behaviors and malodorous (patient did ask for and ostensibly took a shower but emerged remaining malodorous and with matted hair). Patient is currently taking a low dose of Risperdal (though intermittently refused); however this dose is inadequate, patient does not want medication adjustments and refuses long-acting inectable Risperdal which is essential to sustained function in the community; he has no insight at all and teletypewriter operator is convinced that patient will stop taking medications (or take them inadequately) immediately if he were to discharge. Invoke HCP: Patient has a signed healthcare proxy on file. Patient is disorganized and unable to function in the community; he does not have capacity to make medical decisions for himself and so teletypewriter operator will invoke this healthcare proxy. Hospital course: 07/19 Patient difficult with which to engage and denies all psychiatric symptoms. He says I want to get off medication... Line Locator shares his family's concerns about his behaviors but patient tells teletypewriter operator I was doing good at home... Patient talking to teletypewriter operator holding his hand in front of his mouth. At 1 point patient stopped talking to teletypewriter operator completely, keeping his eyes closed but then responded later. Patient does not want to stay in the hospital and Line Locator informed patient of involuntary commitment and invoking healthcare proxy. Patient's mother present who gave more collateral. She says that after his last discharge, he refused to get long-acting injectable and would not take medication. In March he took a low dose of Risperdal for 2 days but then not again until a couple of weeks later. At that time he took Risperdal 2 mg b.i.d. for 10 days and she reports it was the best days ever... That patient was doing well. However he stopped medication and again became disorganized. She says that patient has destroyed the apartment and shows teletypewriter operator multiple pictures of broken televisions, other furniture, flipping over the refrigerator... Patient opened all the drawers throughout the apartment for some reason leaving them open; took off all the anterior doors off the hinges; she says that he broke the furnace somehow and the apartment complex was without heat; now the upstairs Renter is now moving out because does not want to have to deal with the heat going off. She says he took his bed out and put it in the yd; whenever she buys him food he immediately deems it into the trash. She said over the past couple weeks patient has been increasingly agitated and aggressive, once posturing aggressively towards his father; patient angrily threatened his mom yelling leave this house or I'll push you again... , yelling in her face with spittle coming out of his mouth.. Mother says she is scared, felt threatened and left. She said she called the police who know the family; she reports that patient postured aggressively towards 1 of the police officers but because the officer knew him, told his partner to stand down and they thus brought him to the hospital 07/20 pt remains psychotic, talking to himself; patient is difficult with which to engage. Nursing observing patient cheeking Risperdal and spitting out the garbage. Line Locator discussed taking Risperdal with patient who has some ambivalence and told teletypewriter operator he would take it but then that he did not want it and needed something that would help [him] both sleep and drive... He then said he would take it even it increased dose of 2 mg b.i.d. -Patient remains with bizarre behaviors. Patient does not look at teletypewriter operator when talking; during conversation he will intermittently stop talking in the middle of conversation, stare off, sometimes muttering to himself and then restart talking... Patient lining up sugar packets and cards on his bed in specific ways; in the milieu, teletypewriter operator observed patient jumping on a chair and hopping around in the kitchen 07/21 Nursing continue to observe patient cheeking Risperdal than spitting it out. Remains difficult with which to engage and will sometimes not respond to teletypewriter operator at all. Remains with odd, behaviors and internally preoccupied -switch to liquid Risperdal 07/22 Patient refused liquid Risperdal last night but took it this morning. Patient tells teletypewriter operator he will keep taking the Risperdal, since he likes the taste of the liquid Risperdal. Patient remains with disorganized behaviors; patient laughing out loud. Line Locator observed patient going into the kitchen, taking something out of the refrigerator, sitting down in a chair and waiting a few sec and then putting it back in the refrigerator; patient would then going to his room, run around his bed and then back into the kitchen to repeat the same behavior. 07/23 remains disorganized, internally pre-occupied. took risperdal last night and today 07/24 Patient remains with very odd behaviors. On approach, patient turns and quickly walks away; teletypewriter operator catches up with patient and he is willing to talk but turns at an angle and looks away while talking. He says he is good and that he just wants some paper to draw. Today patient had white sticky substance covering the length of multiple pigtails in his hair; teletypewriter operator asked about this and patient said it was tooth paste. Line Locator asked what for and patient said I just woke up this way... He then walks away quickly. -has been taking liquid Risperdal; says he likes the limb and flavored 07/25 pt remains disorganized, psychotic. Explained to pt court tomorrow which he was surprised about (though has been informed). Pt asks to switch from risperdal to ADD medication; then asks to switch to happy medication. He likes the idea of restarting Wellbutrin. Patient stops talking to teletypewriter operator and attends to internal stimuli, seemingly oblivious to writers presence...conversation never resumes. Instead, pt continues to draw smilie face's and hearts on a piece of paper over and over Impression: pt remains floridly psychotic with disorganized speech and behavior. Patient cannot distinguish reality from delusion. Pt is fully incapable of caring for himself in the community and would not be able to acquire food or skilled nursing on his own; and on his own he would be vulnerable to predation. He has no insight at all into his psychiatric illness or his need for medication and is only taking Liquid Risperdal since he likes the taste of it. Were patient to discharge today, he would very soon cease taking medication. 07/26 c/o nasal congestion; covid/rsv ordered and negative Pt initially refused Risperdal last night but then took it later on. Pt sitting in room, in dark, drawing something that resembles an equation, he says it's something i might make later on Pt said he wanted to talk about discharge and teletypewriter operator reminded him about court today and that the magistrate judge would decide; he said he does not want to attend court due to anxiety Court civilly committed patient involuntarily to treatment with substituted judgment -will start with Uzedy 100mg; this will last for 1 month; anticipating it will take patient at least 1 month to stabilize; plan will be to give patient Uzedy 200mg prior to leaving which will give him a longer period of stability in the community 07/27: Active on unit. guarded. Pt responding with one word answers to questions. Patient reports feeling fine ; pt was informed of Uzedy injection ordered for today. Pt did not acknowledge T/W and proceeded to close eyes. Pt was encouraged to inform RN if he has any questions. 07/28 seems more withdrawn today-one word answers to nursing, questioning provider re dc- CTP 07/29 - better more engagable- talking getting up getting meals= needs adls- CTP 07/30 pt a little more organized in that has conversation for longer. He says he got the shot (ANDRE of risperdal) and is wondering when he can go home. He currently accepts that this can be discussed with him and parents but would like to see pt closer to his regular self. Pt says he is suicidal and can he get on the antidepressant wellbutrin. No plans or intentions, just thoughts but really wants to -start - wellbutrin -still no shower, and disheveled, internally pre-occupied and no insight -start Wellbutrin; pt stable enough continue po risperdal for couple days especially now starting wellbutrin; will soon dc 07/31 SI resolved. although some improvement patient remains disorganized and starts off saying at home he has nothing to do except for singing, dancing and having business ideas... Mom present Discussed mom's concern with Wellbutrin XL causing too much energy verses the SR. Pt however likes the long acting XL 150mg since it lasts all day long. Had the same conversation with mom last admission when patient then also waned 150mg and disagreed with this mom's perspective; that time as now, teletypewriter operator, staff do not notice any negative effect. he felt that 100mg did not help his mood enough and did not last as long -Patient had moment of insight and said my tyoughts are too mixed up in my head where i'm not sure what's real anymore....is risperdaone the right medicine? then i'll stay on it...i get lost in this imaginary world -However moments later he said i don't think i have anything (any psych illness) and repeated he does not feel he 08/01Remains disorganized with behavior, internally preoccupied, odd, dancing around the unit; talking to himself at length. met with his mother and patient says he is fine with her being his healthcare proxy in making medical decisions. Patient denies all psychiatric illness and does not think he has a psychiatric problem or that he needs medications. Asks if he can go home today, temporarily accepting that he can not 08/02 Patient wanted Wellbutrin to be discontinued, saying it makes him anxious and that he feels better without it. Also that he likes Seroquel which was started for anxiety and says this is helping. Patient says he is fine asks for discharge but temporarily accept not possible. Remains internally preoccupied talking himself Plan: Section 8/8a patient involuntary committed with substituted judgment INVOKED HCP: File for affirmation of healthcare proxy (involuntary commitment) since patient remains without insight Q 15 minute checks Medications: Seroquel p.r.n. for anxiety DC'd Wellbutrin ER 150mg; saying is making him anxious Risperdal Uzedy 100 mg q30 days: received on 07/27 DC Risperdal (liquid) 2 mg b.i.d. will start up again if psychosis worsens -Prior to DC, after 30 days will follow-up with Risperdal Uzedy 200 mg Past med trials: Vraylar: Did not seem to work Medications on Court-ordered substituted judgment: Risperdal up to 6 mg Uzedy up to 200 mg q.2 months Clozaril Zyprexa Paliperidone/Invega including Trinza Ziprasidone Depakote Patient educated on: diagnosis and medication risk/benefits Informed Consent: does not understand Reason for continued inpatient stay Substantial Risk for: inability to function Time Spent With Patient Time: Total time managing care of this patient today ____ minutes.
[2024-08-03 18:46] VITALS: BP 137/72
[2024-08-03] MEDS: Nicotine 21 MG PATCH.TD24 TRANSDERMA (18:46)
[2024-08-03] MEDS: cloNIDine HCL 0.1 MG TABLET PO (18:46)
--- NOTE | 2024-08-03 18:51 | HO.PSYCHPN ---
Subjective Subjective Date of Service: 08/03/24 Reason For Visit: Schizoaffective Disorder, bipolar type Interim History: Patient; discussed with team Patient asks for Concerta which he says he was on as an adolescent, something to help him focus and to help his mood. Director Of Quality Improvement explained what this medication is not currently possible however revisited the idea Wellbutrin. Patient wanted to be back on Wellbutrin but not the long-acting 1, instead the immediate release to which senior underwriter agreed. Patient again asked for discharge home. Director Of Quality Improvement explained why he is not ready with which patient is agreed. Director Of Quality Improvement tried some reality testing, reminding patient that he destroyed the apartment he was living in; patient denied this. Director Of Quality Improvement explained that his mother had numerous pictures about it and patient said he disagreed but that that is in the past. Mental Status Exam Mental Status Exam Narrative: Pt is alert and oriented; behavior is more cooperative; still odd behaviors, talking to himself, laughing inappropriate times; can only tolerate short interactions; patient is not in distress; dressed in casual attire, messy hair and disheveled, but improved hygiene; mood is described as good eye contact improved; Speech is no longer leading; normal volume and rate; still psychomotor agitation intermittently present; thought process is more goal directed but concrete; Thought content is various things, internally preoccupied; also perseverative on discharge; does not think he has a psychiatric illness; denies SI; no intent; no HI; Denies AVH however patient is consistently responding to internal stimuli. Patients insight and judgment impaired. Diagnostics Vital Signs (24Hr): Vital Signs - 24 hr 08/02/24 19:19 08/02/24 20:00 08/03/24 18:46 Temperature 98.2 F Pulse Rate 125 H Respiratory Rate 16 Blood Pressure 110/58 L 125/71 137/72 Pulse Oximetry 97 Oxygen Delivery Method Room Air BMI result Body Mass Index 28.8 Labs 07/17/24 14:49 07/26/24 16:18 Medications Medications Current Medications Acetaminophen (Acetaminophen 325 Mg Tablet) 650 mg PO Q6H PRN PRN Reason: Headache/Pain, Scale 1-10 Al Hydroxide/Mg Hydroxide (Magnesium Hydrox/Alum Hydrox 30 Ml Oral.Susp) 30 ml PO Q6H PRN PRN Reason: Heartburn/Nausea Bupropion HCl (Bupropion Hcl 75 Mg Tablet) 75 mg PO DAILY JESSICA Clonidine HCl (Clonidine Hcl 0.1 Mg Tablet) 0.1 mg PO Q4H PRN; Protocol PRN Reason: Anxiety Last Admin: 08/03/24 18:46 Dose: 0.1 mg Hydroxyzine HCl (Hydroxyzine Hcl 25 Mg Tablet) 25 mg PO Q6H PRN PRN Reason: mild anxiety/insomnia Last Admin: 08/03/24 18:21 Dose: 25 mg Magnesium Hydroxide (Milk Of Magnesia 30 Ml Oral.Susp) 30 ml PO DAILY PRN PRN Reason: Constipation Nicotine (Nicotine 21 Mg Patch.Td24) 21 mg TRANSDERMA DAILY PRN PRN Reason: smoking cessation Last Admin: 08/03/24 18:46 Dose: 21 mg Nicotine Polacrilex (Nicotine Polacrilex 2 Mg Gum) 4 mg BUCCAL Q2H PRN PRN Reason: Nicotine Cravings Last Admin: 08/03/24 14:42 Dose: 4 mg Olanzapine (Olanzapine 5 Mg Tablet) 5 mg PO Q4H PRN PRN Reason: severe agitation Last Admin: 08/01/24 16:54 Dose: 5 mg Quetiapine Fumarate (Quetiapine Fumarate 50 Mg Tablet) 50 mg PO BID PRN PRN Reason: mod to severe anxiety Last Admin: 08/03/24 13:04 Dose: 50 mg Sodium Chloride (Sodium Chloride 0.65 % Nasal 44 Ml Sprbtl) 1 spray NOSTRIL-B Q1H PRN PRN Reason: Congestion Trazodone HCl (Trazodone Hcl 50 Mg Tablet) 50 mg PO BEDTIME PRN PRN Reason: Insomnia Last Admin: 07/31/24 20:35 Dose: 50 mg Allergies Allergies Allergy/AdvReac Type Severity Reaction Status Date / Time strawberry Allergy Mild Itching Verified 07/17/24 14:35 cefazolin Allergy Unknown Itching Verified 07/17/24 14:35 sulfamethoxazole Allergy Unknown Itching Verified 07/17/24 14:35 [From Bactrim] trimethoprim [From Bactrim] Allergy Unknown Itching Verified 07/17/24 14:35 lorazepam [From Ativan] AdvReac Agitated Verified 07/17/24 14:35 lithium AdvReac Unknown other Uncoded 11/29/23 21:03 Assessment & Plan Assessment & Plan (1) Schizoaffective disorder, bipolar type: Status: Acute Code(s): F25.0 - Schizoaffective disorder, bipolar type (2) Anxiety: Status: Chronic Code(s): F41.9 - Anxiety disorder, unspecified Plan HPI: Patient is a 28-year-old male with history of schizoaffective disorder, bipolar type, history of polysubstance abuse who presents via EMS for manic and delusional behaviors. Patient is a poor historian, lying in bed, not opening his eyes, and offering little information. Initially, patient was talking with the nurse but 1 minute later, as soon as senior underwriter walked in to talk with patient, he kept his eyes closed and refused to respond at all to senior underwriter. A little later on on re-approached, patient is willing to briefly engage. He says that he is doing good. On inquiry, he says I have no idea why he is here in the hospital; senior underwriter shared that his parents felt he was unsafe, disorganized and destroying property which he denies, even though senior underwriter mentioned that his mother showed pictures of damaging his apartment. Patient refuses to sign in and remains on a 12 B. Patient took risperidone (he initially spit it out but then took it) this morning and says he will keep taking it but refuses the long-acting injectable. he denies any AVH, SI or HI. Patient's mother, Patsy who is also patient's healthcare proxy reported collateral. She says he has not been taking medications consistently has been very disorganized, has destroyed the apartment that she and her own and pay for, including smashing several television sets, multiple cell phones, refrigerators and other appliances and items, taking off all the door in the apartments (she provided pictures); she says he has been disorganized, not showering at all attending to ADLs, acting confused, and doing strange things such as snorting salt... Patient yelling at her, demanding things such as groceries which she buys and which he then proceeds to throwing the trash... Formulation/clinical reasoning: Patient has well documented history of schizoaffective disorder, bipolar type. Patient had very similar presentation on his last admission January 2024, but responded well with p.o. Risperdal and then on long-acting Risperdal product Uzedy (also on Wellbutrin XL 150 mg), organized, attending to ADLs, in good behavioral and impulse control and even developed some limited insight, briefly acknowledging that he did have paranoid delusions and auditory hallucinations prior to taking medication... However, patient has a long history of medication non-adherence and decompensation which is again resulting in need for psychiatric hospitalization. On the unit, he is with odd behaviors and malodorous (patient did ask for and ostensibly took a shower but emerged remaining malodorous and with matted hair). Patient is currently taking a low dose of Risperdal (though intermittently refused); however this dose is inadequate, patient does not want medication adjustments and refuses long-acting inectable Risperdal which is essential to sustained function in the community; he has no insight at all and senior underwriter is convinced that patient will stop taking medications (or take them inadequately) immediately if he were to discharge. Invoke HCP: Patient has a signed healthcare proxy on file. Patient is disorganized and unable to function in the community; he does not have capacity to make medical decisions for himself and so senior underwriter will invoke this healthcare proxy. Hospital course: 07/19 Patient difficult with which to engage and denies all psychiatric symptoms. He says I want to get off medication... Director Of Quality Improvement shares his family's concerns about his behaviors but patient tells senior underwriter I was doing good at home... Patient talking to senior underwriter holding his hand in front of his mouth. At 1 point patient stopped talking to senior underwriter completely, keeping his eyes closed but then responded later. Patient does not want to stay in the hospital and Director Of Quality Improvement informed patient of involuntary commitment and invoking healthcare proxy. Patient's mother present who gave more collateral. She says that after his last discharge, he refused to get long-acting injectable and would not take medication. In March he took a low dose of Risperdal for 2 days but then not again until a couple of weeks later. At that time he took Risperdal 2 mg b.i.d. for 10 days and she reports it was the best days ever... That patient was doing well. However he stopped medication and again became disorganized. She says that patient has destroyed the apartment and shows senior underwriter multiple pictures of broken televisions, other furniture, flipping over the refrigerator... Patient opened all the drawers throughout the apartment for some reason leaving them open; took off all the anterior doors off the hinges; she says that he broke the furnace somehow and the apartment complex was without heat; now the upstairs Renter is now moving out because does not want to have to deal with the heat going off. She says he took his bed out and put it in the yd; whenever she buys him food he immediately deems it into the trash. She said over the past couple weeks patient has been increasingly agitated and aggressive, once posturing aggressively towards his father; patient angrily threatened his mom yelling leave this house or I'll push you again... , yelling in her face with spittle coming out of his mouth.. Mother says she is scared, felt threatened and left. She said she called the police who know the family; she reports that patient postured aggressively towards 1 of the police officers but because the officer knew him, told his partner to stand down and they thus brought him to the hospital 07/20 pt remains psychotic, talking to himself; patient is difficult with which to engage. Nursing observing patient cheeking Risperdal and spitting out the garbage. Director Of Quality Improvement discussed taking Risperdal with patient who has some ambivalence and told senior underwriter he would take it but then that he did not want it and needed something that would help [him] both sleep and drive... He then said he would take it even it increased dose of 2 mg b.i.d. -Patient remains with bizarre behaviors. Patient does not look at senior underwriter when talking; during conversation he will intermittently stop talking in the middle of conversation, stare off, sometimes muttering to himself and then restart talking... Patient lining up sugar packets and cards on his bed in specific ways; in the milieu, senior underwriter observed patient jumping on a chair and hopping around in the kitchen 07/21 Nursing continue to observe patient cheeking Risperdal than spitting it out. Remains difficult with which to engage and will sometimes not respond to senior underwriter at all. Remains with odd, behaviors and internally preoccupied -switch to liquid Risperdal 4/6 Patient refused liquid Risperdal last night but took it this morning. Patient tells senior underwriter he will keep taking the Risperdal, since he likes the taste of the liquid Risperdal. Patient remains with disorganized behaviors; patient laughing out loud. Director Of Quality Improvement observed patient going into the kitchen, taking something out of the refrigerator, sitting down in a chair and waiting a few sec and then putting it back in the refrigerator; patient would then going to his room, run around his bed and then back into the kitchen to repeat the same behavior. 07/23 remains disorganized, internally pre-occupied. took risperdal last night and today 07/24 Patient remains with very odd behaviors. On approach, patient turns and quickly walks away; senior underwriter catches up with patient and he is willing to talk but turns at an angle and looks away while talking. He says he is good and that he just wants some paper to draw. Today patient had white sticky substance covering the length of multiple pigtails in his hair; senior underwriter asked about this and patient said it was tooth paste. Director Of Quality Improvement asked what for and patient said I just woke up this way... He then walks away quickly. -has been taking liquid Risperdal; says he likes the limb and flavored 07/25 pt remains disorganized, psychotic. Explained to pt court tomorrow which he was surprised about (though has been informed). Pt asks to switch from risperdal to ADD medication; then asks to switch to happy medication. He likes the idea of restarting Wellbutrin. Patient stops talking to senior underwriter and attends to internal stimuli, seemingly oblivious to writers presence...conversation never resumes. Instead, pt continues to draw smilie face's and hearts on a piece of paper over and over Impression: pt remains floridly psychotic with disorganized speech and behavior. Patient cannot distinguish reality from delusion. Pt is fully incapable of caring for himself in the community and would not be able to acquire food or long term on his own; and on his own he would be vulnerable to predation. He has no insight at all into his psychiatric illness or his need for medication and is only taking Liquid Risperdal since he likes the taste of it. Were patient to discharge today, he would very soon cease taking medication. 07/26 c/o nasal congestion; covid/rsv ordered and negative Pt initially refused Risperdal last night but then took it later on. Pt sitting in room, in dark, drawing something that resembles an equation, he says it's something i might make later on Pt said he wanted to talk about discharge and senior underwriter reminded him about court today and that the scales inspector would decide; he said he does not want to attend court due to anxiety Court civilly committed patient involuntarily to treatment with substituted judgment -will start with Uzedy 100mg; this will last for 1 month; anticipating it will take patient at least 1 month to stabilize; plan will be to give patient Uzedy 200mg prior to leaving which will give him a longer period of stability in the community 07/27: Active on unit. guarded. Pt responding with one word answers to questions. Patient reports feeling fine ; pt was informed of Uzedy injection ordered for today. Pt did not acknowledge T/W and proceeded to close eyes. Pt was encouraged to inform RN if he has any questions. 07/28 seems more withdrawn today-one word answers to nursing, questioning provider re dc- CTP 07/29 - better more engagable- talking getting up getting meals= needs adls- CTP 07/30 pt a little more organized in that has conversation for longer. He says he got the shot (ANDRE of risperdal) and is wondering when he can go home. He currently accepts that this can be discussed with him and parents but would like to see pt closer to his regular self. Pt says he is suicidal and can he get on the antidepressant wellbutrin. No plans or intentions, just thoughts but really wants to -start - wellbutrin -still no shower, and disheveled, internally pre-occupied and no insight -start Wellbutrin; pt stable enough continue po risperdal for couple days especially now starting wellbutrin; will soon dc 07/31 SI resolved. although some improvement patient remains disorganized and starts off saying at home he has nothing to do except for singing, dancing and having business ideas... Mom present Discussed mom's concern with Wellbutrin XL causing too much energy verses the SR. Pt however likes the long acting XL 150mg since it lasts all day long. Had the same conversation with mom last admission when patient then also waned 150mg and disagreed with this mom's perspective; that time as now, senior underwriter, staff do not notice any negative effect. he felt that 100mg did not help his mood enough and did not last as long -Patient had moment of insight and said my tyoughts are too mixed up in my head where i'm not sure what's real anymore....is risperdaone the right medicine? then i'll stay on it...i get lost in this imaginary world -However moments later he said i don't think i have anything (any psych illness) and repeated he does not feel he 08/01Remains disorganized with behavior, internally preoccupied, odd, dancing around the unit; talking to himself at length. met with his mother and patient says he is fine with her being his healthcare proxy in making medical decisions. Patient denies all psychiatric illness and does not think he has a psychiatric problem or that he needs medications. Asks if he can go home today, temporarily accepting that he can not 08/02 Patient wanted Wellbutrin to be discontinued, saying it makes him anxious and that he feels better without it. Also that he likes Seroquel which was started for anxiety and says this is helping. Patient says he is fine asks for discharge but temporarily accept not possible. Remains internally preoccupied talking himself 08/03 Patient asks for Concerta which he says he was on as an adolescent, something to help him focus and to help his mood. Director Of Quality Improvement explained what this medication is not currently possible however revisited the idea Wellbutrin. Patient wanted to be back on Wellbutrin but not the long-acting 1, instead the immediate release to which senior underwriter agreed. Patient again asked for discharge home. Director Of Quality Improvement explained why he is not ready with which patient is agreed. Director Of Quality Improvement tried some reality testing, reminding patient that he destroyed the apartment he was living in; patient denied this. Director Of Quality Improvement explained that his mother had numerous pictures about it and patient said he disagreed but that that is in the past. Impression: Patient remains without any insight at all. He is disorganized and can only remain appropriate for brief interactions. Patient where he would be discharged will not take medications, will not get next long-acting injectable and will remain psychotic, disorganized and unable to function on his own. Plan: Section 8/ patient involuntary committed with substituted judgment Healthcare proxy affirmed Q 15 minute checks Medications: Seroquel p.r.n. for anxiety Will try Wellbutrin IR 75 mg daily; patient says maybe he will take it b.i.d. but will try it like this 1st DC'd Wellbutrin ER 150mg; saying is making him anxious Risperdal Uzedy 100 mg q30 days: received on 07/27 DC Risperdal (liquid) 2 mg b.i.d. will start up again if psychosis worsens -Prior to DC, after 30 days will follow-up with Risperdal Uzedy 200 mg Past med trials: Vraylar: Did not seem to work Medications on Court-ordered substituted judgment: Risperdal up to 6 mg Uzedy up to 200 mg q.2 months Clozaril Zyprexa Paliperidone/Invega including Trinza Ziprasidone Depakote Patient educated on: diagnosis and medication risk/benefits Informed Consent: does not understand Reason for continued inpatient stay Substantial Risk for: inability to function Time Spent With Patient Time: Total time managing care of this patient today ____ minutes.
[2024-08-03] MEDS: buPROPion HCL 75 MG TABLET PO (19:29)
[2024-08-03 19:33] VITALS: BP 127/74; PULSE 81; TEMP 36.6; O2SAT 99
[2024-08-04 08:00] VITALS: BP 120/62; PULSE 78; TEMP 37.1; O2SAT 98
[2024-08-04] MEDS: buPROPion HCL 75 MG TABLET PO (08:30)
--- NOTE | 2024-08-04 10:56 | HO.PSYCHPN ---
Subjective Subjective Date of Service: 08/04/24 Reason For Visit: Schizoaffective Disorder, bipolar type Subjective Notes: Section 8 Interim History: Patient was seen and discussed in rounds today. Records and plans were reviewed. He is doing a little better, has been brighter in his affect. No behavioral issues. Eating and sleeping adequately. No SI. No changes were made today Review of Systems Review of Systems Yes all other systems are reviewed and are negative Mental Status Exam Mental Status Exam Narrative: In today's visit he is alert, oriented and pleasant. Normal speech. Minimal eye contact. Affect is appropriate and constricted. No signs of psychosis. No AVH. Cognitively is grossly intact. Able to move all limbs. No gait abnormalities. Judgment is intact Diagnostics Vital Signs (24Hr): Vital Signs - 24 hr 08/03/24 18:46 08/03/24 19:33 08/04/24 08:00 Temperature 97.9 F 98.7 F Pulse Rate 81 78 Blood Pressure 137/72 127/74 120/62 Pulse Oximetry 99 98 Oxygen Delivery Method Room Air Room Air BMI result Body Mass Index 28.8 Labs 07/17/24 14:49 07/26/24 16:18 Medications Medications Current Medications Acetaminophen (Acetaminophen 325 Mg Tablet) 650 mg PO Q6H PRN PRN Reason: Headache/Pain, Scale 1-10 Al Hydroxide/Mg Hydroxide (Magnesium Hydrox/Alum Hydrox 30 Ml Oral.Susp) 30 ml PO Q6H PRN PRN Reason: Heartburn/Nausea Bupropion HCl (Bupropion Hcl 75 Mg Tablet) 75 mg PO DAILY JESSICA Last Admin: 08/04/24 08:30 Dose: 75 mg Clonidine HCl (Clonidine Hcl 0.1 Mg Tablet) 0.1 mg PO Q4H PRN; Protocol PRN Reason: Anxiety Last Admin: 08/03/24 18:46 Dose: 0.1 mg Hydroxyzine HCl (Hydroxyzine Hcl 25 Mg Tablet) 25 mg PO Q6H PRN PRN Reason: mild anxiety/insomnia Last Admin: 08/03/24 18:21 Dose: 25 mg Magnesium Hydroxide (Milk Of Magnesia 30 Ml Oral.Susp) 30 ml PO DAILY PRN PRN Reason: Constipation Nicotine (Nicotine 21 Mg Patch.Td24) 21 mg TRANSDERMA DAILY PRN PRN Reason: smoking cessation Last Admin: 08/03/24 18:46 Dose: 21 mg Nicotine Polacrilex (Nicotine Polacrilex 2 Mg Gum) 4 mg BUCCAL Q2H PRN PRN Reason: Nicotine Cravings Last Admin: 08/03/24 14:42 Dose: 4 mg Olanzapine (Olanzapine 5 Mg Tablet) 5 mg PO Q4H PRN PRN Reason: severe agitation Last Admin: 08/01/24 16:54 Dose: 5 mg Quetiapine Fumarate (Quetiapine Fumarate 50 Mg Tablet) 50 mg PO BID PRN PRN Reason: mod to severe anxiety Last Admin: 08/03/24 13:04 Dose: 50 mg Sodium Chloride (Sodium Chloride 0.65 % Nasal 44 Ml Sprbtl) 1 spray NOSTRIL-B Q1H PRN PRN Reason: Congestion Trazodone HCl (Trazodone Hcl 50 Mg Tablet) 50 mg PO BEDTIME PRN PRN Reason: Insomnia Last Admin: 07/31/24 20:35 Dose: 50 mg Allergies Allergies Allergy/AdvReac Type Severity Reaction Status Date / Time strawberry Allergy Mild Itching Verified 07/17/24 14:35 cefazolin Allergy Unknown Itching Verified 07/17/24 14:35 sulfamethoxazole Allergy Unknown Itching Verified 07/17/24 14:35 [From Bactrim] trimethoprim [From Bactrim] Allergy Unknown Itching Verified 07/17/24 14:35 lorazepam [From Ativan] AdvReac Agitated Verified 07/17/24 14:35 lithium AdvReac Unknown other Uncoded 11/29/23 21:03 Assessment & Plan Assessment & Plan (1) Schizoaffective disorder, bipolar type: Status: Acute Code(s): F25.0 - Schizoaffective disorder, bipolar type (2) Anxiety: Status: Chronic Code(s): F41.9 - Anxiety disorder, unspecified Plan HPI: Patient is a 28-year-old male with history of schizoaffective disorder, bipolar type, history of polysubstance abuse who presents via EMS for manic and delusional behaviors. Patient is a poor historian, lying in bed, not opening his eyes, and offering little information. Initially, patient was talking with the nurse but 1 minute later, as soon as assembly instructions writer walked in to talk with patient, he kept his eyes closed and refused to respond at all to assembly instructions writer. A little later on on re-approached, patient is willing to briefly engage. He says that he is doing good. On inquiry, he says I have no idea why he is here in the hospital; assembly instructions writer shared that his parents felt he was unsafe, disorganized and destroying property which he denies, even though assembly instructions writer mentioned that his mother showed pictures of damaging his apartment. Patient refuses to sign in and remains on a 12 B. Patient took risperidone (he initially spit it out but then took it) this morning and says he will keep taking it but refuses the long-acting injectable. he denies any AVH, SI or HI. Patient's mother, Patsy who is also patient's healthcare proxy reported collateral. She says he has not been taking medications consistently has been very disorganized, has destroyed the apartment that she and her own and pay for, including smashing several television sets, multiple cell phones, refrigerators and other appliances and items, taking off all the door in the apartments (she provided pictures); she says he has been disorganized, not showering at all attending to ADLs, acting confused, and doing strange things such as snorting salt... Patient yelling at her, demanding things such as groceries which she buys and which he then proceeds to throwing the trash... Formulation/clinical reasoning: Patient has well documented history of schizoaffective disorder, bipolar type. Patient had very similar presentation on his last admission January 2024, but responded well with p.o. Risperdal and then on long-acting Risperdal product Uzedy (also on Wellbutrin XL 150 mg), organized, attending to ADLs, in good behavioral and impulse control and even developed some limited insight, briefly acknowledging that he did have paranoid delusions and auditory hallucinations prior to taking medication... However, patient has a long history of medication non-adherence and decompensation which is again resulting in need for psychiatric hospitalization. On the unit, he is with odd behaviors and malodorous (patient did ask for and ostensibly took a shower but emerged remaining malodorous and with matted hair). Patient is currently taking a low dose of Risperdal (though intermittently refused); however this dose is inadequate, patient does not want medication adjustments and refuses long-acting inectable Risperdal which is essential to sustained function in the community; he has no insight at all and assembly instructions writer is convinced that patient will stop taking medications (or take them inadequately) immediately if he were to discharge. Invoke HCP: Patient has a signed healthcare proxy on file. Patient is disorganized and unable to function in the community; he does not have capacity to make medical decisions for himself and so assembly instructions writer will invoke this healthcare proxy. Hospital course: 07/19 Patient difficult with which to engage and denies all psychiatric symptoms. He says I want to get off medication... Outside Property Agent shares his family's concerns about his behaviors but patient tells assembly instructions writer I was doing good at home... Patient talking to assembly instructions writer holding his hand in front of his mouth. At 1 point patient stopped talking to assembly instructions writer completely, keeping his eyes closed but then responded later. Patient does not want to stay in the hospital and Outside Property Agent informed patient of involuntary commitment and invoking healthcare proxy. Patient's mother present who gave more collateral. She says that after his last discharge, he refused to get long-acting injectable and would not take medication. In March he took a low dose of Risperdal for 2 days but then not again until a couple of weeks later. At that time he took Risperdal 2 mg b.i.d. for 10 days and she reports it was the best days ever... That patient was doing well. However he stopped medication and again became disorganized. She says that patient has destroyed the apartment and shows assembly instructions writer multiple pictures of broken televisions, other furniture, flipping over the refrigerator... Patient opened all the drawers throughout the apartment for some reason leaving them open; took off all the anterior doors off the hinges; she says that he broke the furnace somehow and the apartment complex was without heat; now the upstairs Renter is now moving out because does not want to have to deal with the heat going off. She says he took his bed out and put it in the yd; whenever she buys him food he immediately deems it into the trash. She said over the past couple weeks patient has been increasingly agitated and aggressive, once posturing aggressively towards his father; patient angrily threatened his mom yelling leave this house or I'll push you again... , yelling in her face with spittle coming out of his mouth.. Mother says she is scared, felt threatened and left. She said she called the police who know the family; she reports that patient postured aggressively towards 1 of the police officers but because the officer knew him, told his partner to stand down and they thus brought him to the hospital 07/20 pt remains psychotic, talking to himself; patient is difficult with which to engage. Nursing observing patient cheeking Risperdal and spitting out the garbage. Outside Property Agent discussed taking Risperdal with patient who has some ambivalence and told assembly instructions writer he would take it but then that he did not want it and needed something that would help [him] both sleep and drive... He then said he would take it even it increased dose of 2 mg b.i.d. -Patient remains with bizarre behaviors. Patient does not look at assembly instructions writer when talking; during conversation he will intermittently stop talking in the middle of conversation, stare off, sometimes muttering to himself and then restart talking... Patient lining up sugar packets and cards on his bed in specific ways; in the milieu, assembly instructions writer observed patient jumping on a chair and hopping around in the kitchen 07/21 Nursing continue to observe patient cheeking Risperdal than spitting it out. Remains difficult with which to engage and will sometimes not respond to assembly instructions writer at all. Remains with odd, behaviors and internally preoccupied -switch to liquid Risperdal 07/22 Patient refused liquid Risperdal last night but took it this morning. Patient tells assembly instructions writer he will keep taking the Risperdal, since he likes the taste of the liquid Risperdal. Patient remains with disorganized behaviors; patient laughing out loud. Outside Property Agent observed patient going into the kitchen, taking something out of the refrigerator, sitting down in a chair and waiting a few sec and then putting it back in the refrigerator; patient would then going to his room, run around his bed and then back into the kitchen to repeat the same behavior. 07/23 remains disorganized, internally pre-occupied. took risperdal last night and today 07/24 Patient remains with very odd behaviors. On approach, patient turns and quickly walks away; assembly instructions writer catches up with patient and he is willing to talk but turns at an angle and looks away while talking. He says he is good and that he just wants some paper to draw. Today patient had white sticky substance covering the length of multiple pigtails in his hair; assembly instructions writer asked about this and patient said it was tooth paste. Outside Property Agent asked what for and patient said I just woke up this way... He then walks away quickly. -has been taking liquid Risperdal; says he likes the limb and flavored 07/25 pt remains disorganized, psychotic. Explained to pt court tomorrow which he was surprised about (though has been informed). Pt asks to switch from risperdal to ADD medication; then asks to switch to happy medication. He likes the idea of restarting Wellbutrin. Patient stops talking to assembly instructions writer and attends to internal stimuli, seemingly oblivious to writers presence...conversation never resumes. Instead, pt continues to draw smilie face's and hearts on a piece of paper over and over Impression: pt remains floridly psychotic with disorganized speech and behavior. Patient cannot distinguish reality from delusion. Pt is fully incapable of caring for himself in the community and would not be able to acquire food or halfway on his own; and on his own he would be vulnerable to predation. He has no insight at all into his psychiatric illness or his need for medication and is only taking Liquid Risperdal since he likes the taste of it. Were patient to discharge today, he would very soon cease taking medication. 07/26 c/o nasal congestion; covid/rsv ordered and negative Pt initially refused Risperdal last night but then took it later on. Pt sitting in room, in dark, drawing something that resembles an equation, he says it's something i might make later on Pt said he wanted to talk about discharge and assembly instructions writer reminded him about court today and that the customer account coordinator would decide; he said he does not want to attend court due to anxiety Court civilly committed patient involuntarily to treatment with substituted judgment -will start with Uzedy 100mg; this will last for 1 month; anticipating it will take patient at least 1 month to stabilize; plan will be to give patient Uzedy 200mg prior to leaving which will give him a longer period of stability in the community 07/27: Active on unit. guarded. Pt responding with one word answers to questions. Patient reports feeling fine ; pt was informed of Uzedy injection ordered for today. Pt did not acknowledge T/W and proceeded to close eyes. Pt was encouraged to inform RN if he has any questions. 07/28 seems more withdrawn today-one word answers to nursing, questioning provider re dc- CTP 07/29 - better more engagable- talking getting up getting meals= needs adls- CTP 07/30 pt a little more organized in that has conversation for longer. He says he got the shot (ANDRE of risperdal) and is wondering when he can go home. He currently accepts that this can be discussed with him and parents but would like to see pt closer to his regular self. Pt says he is suicidal and can he get on the antidepressant wellbutrin. No plans or intentions, just thoughts but really wants to -start - wellbutrin -still no shower, and disheveled, internally pre-occupied and no insight -start Wellbutrin; pt stable enough continue po risperdal for couple days especially now starting wellbutrin; will soon dc 07/31 SI resolved. although some improvement patient remains disorganized and starts off saying at home he has nothing to do except for singing, dancing and having business ideas... Mom present Discussed mom's concern with Wellbutrin XL causing too much energy verses the SR. Pt however likes the long acting XL 150mg since it lasts all day long. Had the same conversation with mom last admission when patient then also waned 150mg and disagreed with this mom's perspective; that time as now, assembly instructions writer, staff do not notice any negative effect. he felt that 100mg did not help his mood enough and did not last as long -Patient had moment of insight and said my tyoughts are too mixed up in my head where i'm not sure what's real anymore....is risperdaone the right medicine? then i'll stay on it...i get lost in this imaginary world -However moments later he said i don't think i have anything (any psych illness) and repeated he does not feel he 08/01Remains disorganized with behavior, internally preoccupied, odd, dancing around the unit; talking to himself at length. met with his mother and patient says he is fine with her being his healthcare proxy in making medical decisions. Patient denies all psychiatric illness and does not think he has a psychiatric problem or that he needs medications. Asks if he can go home today, temporarily accepting that he can not 08/02 Patient wanted Wellbutrin to be discontinued, saying it makes him anxious and that he feels better without it. Also that he likes Seroquel which was started for anxiety and says this is helping. Patient says he is fine asks for discharge but temporarily accept not possible. Remains internally preoccupied talking himself 08/03 Patient asks for Concerta which he says he was on as an adolescent, something to help him focus and to help his mood. Outside Property Agent explained what this medication is not currently possible however revisited the idea Wellbutrin. Patient wanted to be back on Wellbutrin but not the long-acting 1, instead the immediate release to which assembly instructions writer agreed. Patient again asked for discharge home. Outside Property Agent explained why he is not ready with which patient is agreed. Outside Property Agent tried some reality testing, reminding patient that he destroyed the apartment he was living in; patient denied this. Outside Property Agent explained that his mother had numerous pictures about it and patient said he disagreed but that that is in the past. 08/04: Continue current plans and regimen Impression: Patient remains without any insight at all. He is disorganized and can only remain appropriate for brief interactions. Patient where he would be discharged will not take medications, will not get next long-acting injectable and will remain psychotic, disorganized and unable to function on his own. Plan: Section 8/8a patient involuntary committed with substituted judgment Healthcare proxy affirmed Q 15 minute checks Medications: Seroquel p.r.n. for anxiety Will try Wellbutrin IR 75 mg daily; patient says maybe he will take it b.i.d. but will try it like this 1st DC'd Wellbutrin ER 150mg; saying is making him anxious Risperdal Uzedy 100 mg q30 days: received on 07/27 DC Risperdal (liquid) 2 mg b.i.d. will start up again if psychosis worsens -Prior to DC, after 30 days will follow-up with Risperdal Uzedy 200 mg Past med trials: Pranav: Did not seem to work Medications on Court-ordered substituted judgment: Risperdal up to 6 mg Uzedy up to 200 mg q.2 months Clozaril Zyprexa Paliperidone/Invega including Trinza Ziprasidone Depakote Reason for continued inpatient stay Substantial Risk for: med/psych decompensation Time Spent With Patient Time: Total time managing care of this patient today ____ minutes.
[2024-08-04 19:30] VITALS: BP 121/76; PULSE 80; TEMP 36.8; O2SAT 96
[2024-08-05 08:00] VITALS: BP 121/57; PULSE 62; RESP 14; TEMP 36.8; O2SAT 97
[2024-08-05] MEDS: buPROPion HCL 75 MG TABLET PO (08:30)
--- NOTE | 2024-08-05 10:03 | HO.PSYCHPN ---
Subjective Subjective Date of Service: 08/05/24 Reason For Visit: Schizoaffective Disorder, bipolar type Subjective Notes: Section 8 Interim History: Patient was seen and discussed in rounds today. Records and plans were reviewed. He has been stable with improved affect. He is more organized. Continues to have poor hygiene. Compliant with medications. No complaints or side effects. Endorses depression. Slept 9 hours. Eating adequately. Review of Systems Review of Systems Yes all other systems are reviewed and are negative Mental Status Exam Mental Status Exam Narrative: In today's visit he is alert, oriented and pleasant. Normal speech. Minimal eye contact. Affect is appropriate and constricted. No signs of psychosis. No AVH. No SI. Cognitively is grossly intact. Able to move all limbs. No gait abnormalities. Judgment is intact Diagnostics Vital Signs (24Hr): Vital Signs - 24 hr 08/04/24 19:30 08/05/24 08:00 Temperature 98.3 F 98.2 F Pulse Rate 80 62 Respiratory Rate 14 Blood Pressure 121/76 121/57 L Pulse Oximetry 96 97 Oxygen Delivery Method Room Air Room Air BMI result Body Mass Index 28.8 Labs 07/17/24 14:49 07/26/24 16:18 Medications Medications Current Medications Acetaminophen (Acetaminophen 325 Mg Tablet) 650 mg PO Q6H PRN PRN Reason: Headache/Pain, Scale 1-10 Al Hydroxide/Mg Hydroxide (Magnesium Hydrox/Alum Hydrox 30 Ml Oral.Susp) 30 ml PO Q6H PRN PRN Reason: Heartburn/Nausea Bupropion HCl (Bupropion Hcl 75 Mg Tablet) 75 mg PO DAILY JESSICA Last Admin: 08/05/24 08:30 Dose: 75 mg Clonidine HCl (Clonidine Hcl 0.1 Mg Tablet) 0.1 mg PO Q4H PRN; Protocol PRN Reason: Anxiety Last Admin: 08/03/24 18:46 Dose: 0.1 mg Hydroxyzine HCl (Hydroxyzine Hcl 25 Mg Tablet) 25 mg PO Q6H PRN PRN Reason: mild anxiety/insomnia Last Admin: 08/03/24 18:21 Dose: 25 mg Magnesium Hydroxide (Milk Of Magnesia 30 Ml Oral.Susp) 30 ml PO DAILY PRN PRN Reason: Constipation Nicotine (Nicotine 21 Mg Patch.Td24) 21 mg TRANSDERMA DAILY PRN PRN Reason: smoking cessation Last Admin: 08/03/24 18:46 Dose: 21 mg Nicotine Polacrilex (Nicotine Polacrilex 2 Mg Gum) 4 mg BUCCAL Q2H PRN PRN Reason: Nicotine Cravings Last Admin: 08/03/24 14:42 Dose: 4 mg Olanzapine (Olanzapine 5 Mg Tablet) 5 mg PO Q4H PRN PRN Reason: severe agitation Last Admin: 08/01/24 16:54 Dose: 5 mg Quetiapine Fumarate (Quetiapine Fumarate 50 Mg Tablet) 50 mg PO BID PRN PRN Reason: mod to severe anxiety Last Admin: 08/03/24 13:04 Dose: 50 mg Sodium Chloride (Sodium Chloride 0.65 % Nasal 44 Ml Sprbtl) 1 spray NOSTRIL-B Q1H PRN PRN Reason: Congestion Trazodone HCl (Trazodone Hcl 50 Mg Tablet) 50 mg PO BEDTIME PRN PRN Reason: Insomnia Last Admin: 07/31/24 20:35 Dose: 50 mg Allergies Allergies Allergy/AdvReac Type Severity Reaction Status Date / Time strawberry Allergy Mild Itching Verified 07/17/24 14:35 cefazolin Allergy Unknown Itching Verified 07/17/24 14:35 sulfamethoxazole Allergy Unknown Itching Verified 07/17/24 14:35 [From Bactrim] trimethoprim [From Bactrim] Allergy Unknown Itching Verified 07/17/24 14:35 lorazepam [From Ativan] AdvReac Agitated Verified 07/17/24 14:35 lithium AdvReac Unknown other Uncoded 11/29/23 21:03 Assessment & Plan Assessment & Plan (1) Schizoaffective disorder, bipolar type: Status: Acute Code(s): F25.0 - Schizoaffective disorder, bipolar type (2) Anxiety: Status: Chronic Code(s): F41.9 - Anxiety disorder, unspecified Plan HPI: Patient is a 28-year-old male with history of schizoaffective disorder, bipolar type, history of polysubstance abuse who presents via EMS for manic and delusional behaviors. Patient is a poor historian, lying in bed, not opening his eyes, and offering little information. Initially, patient was talking with the nurse but 1 minute later, as soon as customs entry writer walked in to talk with patient, he kept his eyes closed and refused to respond at all to customs entry writer. A little later on on re-approached, patient is willing to briefly engage. He says that he is doing good. On inquiry, he says I have no idea why he is here in the hospital; customs entry writer shared that his parents felt he was unsafe, disorganized and destroying property which he denies, even though customs entry writer mentioned that his mother showed pictures of damaging his apartment. Patient refuses to sign in and remains on a 12 B. Patient took risperidone (he initially spit it out but then took it) this morning and says he will keep taking it but refuses the long-acting injectable. he denies any AVH, SI or HI. Patient's mother, Patsy who is also patient's healthcare proxy reported collateral. She says he has not been taking medications consistently has been very disorganized, has destroyed the apartment that she and her own and pay for, including smashing several television sets, multiple cell phones, refrigerators and other appliances and items, taking off all the door in the apartments (she provided pictures); she says he has been disorganized, not showering at all attending to ADLs, acting confused, and doing strange things such as snorting salt... Patient yelling at her, demanding things such as groceries which she buys and which he then proceeds to throwing the trash... Formulation/clinical reasoning: Patient has well documented history of schizoaffective disorder, bipolar type. Patient had very similar presentation on his last admission January 2024, but responded well with p.o. Risperdal and then on long-acting Risperdal product Uzedy (also on Wellbutrin XL 150 mg), organized, attending to ADLs, in good behavioral and impulse control and even developed some limited insight, briefly acknowledging that he did have paranoid delusions and auditory hallucinations prior to taking medication... However, patient has a long history of medication non-adherence and decompensation which is again resulting in need for psychiatric hospitalization. On the unit, he is with odd behaviors and malodorous (patient did ask for and ostensibly took a shower but emerged remaining malodorous and with matted hair). Patient is currently taking a low dose of Risperdal (though intermittently refused); however this dose is inadequate, patient does not want medication adjustments and refuses long-acting inectable Risperdal which is essential to sustained function in the community; he has no insight at all and customs entry writer is convinced that patient will stop taking medications (or take them inadequately) immediately if he were to discharge. Invoke HCP: Patient has a signed healthcare proxy on file. Patient is disorganized and unable to function in the community; he does not have capacity to make medical decisions for himself and so customs entry writer will invoke this healthcare proxy. Hospital course: 07/19 Patient difficult with which to engage and denies all psychiatric symptoms. He says I want to get off medication... Employee Communications Manager shares his family's concerns about his behaviors but patient tells customs entry writer I was doing good at home... Patient talking to customs entry writer holding his hand in front of his mouth. At 1 point patient stopped talking to customs entry writer completely, keeping his eyes closed but then responded later. Patient does not want to stay in the hospital and Employee Communications Manager informed patient of involuntary commitment and invoking healthcare proxy. Patient's mother present who gave more collateral. She says that after his last discharge, he refused to get long-acting injectable and would not take medication. In March he took a low dose of Risperdal for 2 days but then not again until a couple of weeks later. At that time he took Risperdal 2 mg b.i.d. for 10 days and she reports it was the best days ever... That patient was doing well. However he stopped medication and again became disorganized. She says that patient has destroyed the apartment and shows customs entry writer multiple pictures of broken televisions, other furniture, flipping over the refrigerator... Patient opened all the drawers throughout the apartment for some reason leaving them open; took off all the anterior doors off the hinges; she says that he broke the furnace somehow and the apartment complex was without heat; now the upstairs Renter is now moving out because does not want to have to deal with the heat going off. She says he took his bed out and put it in the yd; whenever she buys him food he immediately deems it into the trash. She said over the past couple weeks patient has been increasingly agitated and aggressive, once posturing aggressively towards his father; patient angrily threatened his mom yelling leave this house or I'll push you again... , yelling in her face with spittle coming out of his mouth.. Mother says she is scared, felt threatened and left. She said she called the police who know the family; she reports that patient postured aggressively towards 1 of the police officers but because the officer knew him, told his partner to stand down and they thus brought him to the hospital 07/20 pt remains psychotic, talking to himself; patient is difficult with which to engage. Nursing observing patient cheeking Risperdal and spitting out the garbage. Employee Communications Manager discussed taking Risperdal with patient who has some ambivalence and told customs entry writer he would take it but then that he did not want it and needed something that would help [him] both sleep and drive... He then said he would take it even it increased dose of 2 mg b.i.d. -Patient remains with bizarre behaviors. Patient does not look at customs entry writer when talking; during conversation he will intermittently stop talking in the middle of conversation, stare off, sometimes muttering to himself and then restart talking... Patient lining up sugar packets and cards on his bed in specific ways; in the milieu, customs entry writer observed patient jumping on a chair and hopping around in the kitchen 07/21 Nursing continue to observe patient cheeking Risperdal than spitting it out. Remains difficult with which to engage and will sometimes not respond to customs entry writer at all. Remains with odd, behaviors and internally preoccupied -switch to liquid Risperdal 07/22 Patient refused liquid Risperdal last night but took it this morning. Patient tells customs entry writer he will keep taking the Risperdal, since he likes the taste of the liquid Risperdal. Patient remains with disorganized behaviors; patient laughing out loud. Employee Communications Manager observed patient going into the kitchen, taking something out of the refrigerator, sitting down in a chair and waiting a few sec and then putting it back in the refrigerator; patient would then going to his room, run around his bed and then back into the kitchen to repeat the same behavior. 07/23 remains disorganized, internally pre-occupied. took risperdal last night and today 07/24 Patient remains with very odd behaviors. On approach, patient turns and quickly walks away; customs entry writer catches up with patient and he is willing to talk but turns at an angle and looks away while talking. He says he is good and that he just wants some paper to draw. Today patient had white sticky substance covering the length of multiple pigtails in his hair; customs entry writer asked about this and patient said it was tooth paste. Employee Communications Manager asked what for and patient said I just woke up this way... He then walks away quickly. -has been taking liquid Risperdal; says he likes the limb and flavored 07/25 pt remains disorganized, psychotic. Explained to pt court tomorrow which he was surprised about (though has been informed). Pt asks to switch from risperdal to ADD medication; then asks to switch to happy medication. He likes the idea of restarting Wellbutrin. Patient stops talking to customs entry writer and attends to internal stimuli, seemingly oblivious to writers presence...conversation never resumes. Instead, pt continues to draw smilie face's and hearts on a piece of paper over and over Impression: pt remains floridly psychotic with disorganized speech and behavior. Patient cannot distinguish reality from delusion. Pt is fully incapable of caring for himself in the community and would not be able to acquire food or fdc on his own; and on his own he would be vulnerable to predation. He has no insight at all into his psychiatric illness or his need for medication and is only taking Liquid Risperdal since he likes the taste of it. Were patient to discharge today, he would very soon cease taking medication. 07/26 c/o nasal congestion; covid/rsv ordered and negative Pt initially refused Risperdal last night but then took it later on. Pt sitting in room, in dark, drawing something that resembles an equation, he says it's something i might make later on Pt said he wanted to talk about discharge and customs entry writer reminded him about court today and that the finisher card tender would decide; he said he does not want to attend court due to anxiety Court civilly committed patient involuntarily to treatment with substituted judgment -will start with Uzedy 100mg; this will last for 1 month; anticipating it will take patient at least 1 month to stabilize; plan will be to give patient Uzedy 200mg prior to leaving which will give him a longer period of stability in the community 07/27: Active on unit. guarded. Pt responding with one word answers to questions. Patient reports feeling fine ; pt was informed of Uzedy injection ordered for today. Pt did not acknowledge T/W and proceeded to close eyes. Pt was encouraged to inform RN if he has any questions. 07/28 seems more withdrawn today-one word answers to nursing, questioning provider re dc- CTP 07/29 - better more engagable- talking getting up getting meals= needs adls- CTP 07/30 pt a little more organized in that has conversation for longer. He says he got the shot (ANDRE of risperdal) and is wondering when he can go home. He currently accepts that this can be discussed with him and parents but would like to see pt closer to his regular self. Pt says he is suicidal and can he get on the antidepressant wellbutrin. No plans or intentions, just thoughts but really wants to -start - wellbutrin -still no shower, and disheveled, internally pre-occupied and no insight -start Wellbutrin; pt stable enough continue po risperdal for couple days especially now starting wellbutrin; will soon dc 07/31 SI resolved. although some improvement patient remains disorganized and starts off saying at home he has nothing to do except for singing, dancing and having business ideas... Mom present Discussed mom's concern with Wellbutrin XL causing too much energy verses the SR. Pt however likes the long acting XL 150mg since it lasts all day long. Had the same conversation with mom last admission when patient then also waned 150mg and disagreed with this mom's perspective; that time as now, customs entry writer, staff do not notice any negative effect. he felt that 100mg did not help his mood enough and did not last as long -Patient had moment of insight and said my tyoughts are too mixed up in my head where i'm not sure what's real anymore....is risperdaone the right medicine? then i'll stay on it...i get lost in this imaginary world -However moments later he said i don't think i have anything (any psych illness) and repeated he does not feel he 08/01Remains disorganized with behavior, internally preoccupied, odd, dancing around the unit; talking to himself at length. met with his mother and patient says he is fine with her being his healthcare proxy in making medical decisions. Patient denies all psychiatric illness and does not think he has a psychiatric problem or that he needs medications. Asks if he can go home today, temporarily accepting that he can not 08/02 Patient wanted Wellbutrin to be discontinued, saying it makes him anxious and that he feels better without it. Also that he likes Seroquel which was started for anxiety and says this is helping. Patient says he is fine asks for discharge but temporarily accept not possible. Remains internally preoccupied talking himself 08/03 Patient asks for Concerta which he says he was on as an adolescent, something to help him focus and to help his mood. Employee Communications Manager explained what this medication is not currently possible however revisited the idea Wellbutrin. Patient wanted to be back on Wellbutrin but not the long-acting 1, instead the immediate release to which customs entry writer agreed. Patient again asked for discharge home. Employee Communications Manager explained why he is not ready with which patient is agreed. Employee Communications Manager tried some reality testing, reminding patient that he destroyed the apartment he was living in; patient denied this. Employee Communications Manager explained that his mother had numerous pictures about it and patient said he disagreed but that that is in the past. 08/04: Continue current plans and regimen 08/05: Continue current regimen and plans Impression: Patient remains without any insight at all. He is disorganized and can only remain appropriate for brief interactions. Patient where he would be discharged will not take medications, will not get next long-acting injectable and will remain psychotic, disorganized and unable to function on his own. Plan: Section 8/ patient involuntary committed with substituted judgment Healthcare proxy affirmed Q 15 minute checks Medications: Seroquel p.r.n. for anxiety Will try Wellbutrin IR 75 mg daily; patient says maybe he will take it b.i.d. but will try it like this 1st DC'd Wellbutrin ER 150mg; saying is making him anxious Risperdal Uzedy 100 mg q30 days: received on 07/27 DC Risperdal (liquid) 2 mg b.i.d. will start up again if psychosis worsens -Prior to DC, after 30 days will follow-up with Risperdal Uzedy 200 mg Past med trials: Pranav: Did not seem to work Medications on Court-ordered substituted judgment: Risperdal up to 6 mg Uzedy up to 200 mg q.2 months Clozaril Zyprexa Paliperidone/Invega including Trinza Ziprasidone Depakote Reason for continued inpatient stay Substantial Risk for: med/psych decompensation Time Spent With Patient Time: Total time managing care of this patient today ____ minutes.
[2024-08-05] MEDS: Nicotine 21 MG PATCH.TD24 TRANSDERMA (11:30)
[2024-08-05] MEDS: QUEtiapine Fumarate 50 MG TABLET PO ×2 (11:31→15:59)
[2024-08-05] MEDS: Nicotine Polacrilex 2 MG GUM 4 MG BUCCAL ×2 (11:31→15:59)
[2024-08-05] MEDS: hydrOXYzine HCL 25 MG TABLET PO (12:25)
[2024-08-05 12:53] VITALS: BP 116/65
[2024-08-05] MEDS: cloNIDine HCL 0.1 MG TABLET PO (12:53)
[2024-08-05 20:00] VITALS: RESP 18
[2024-08-06 07:57] VITALS: BP 102/56; PULSE 68; RESP 18; TEMP 36.5; O2SAT 97
[2024-08-06] MEDS: buPROPion HCL 75 MG TABLET PO (08:20)
--- NOTE | 2024-08-06 09:53 | HO.PSYCHPN ---
Subjective Subjective Date of Service: 08/06/24 Reason For Visit: Schizoaffective Disorder, bipolar type Interim History: Met with patient; discussed with team Patient remains internally preoccupied; superficially engaged but guarded. Says he likes the immediate release Wellbutrin and wants to continue it. Asks if he can get on Concerta again and narrative writer explained why it is not appropriate this time. Mental Status Exam Mental Status Exam Narrative: Pt is alert and oriented; behavior is more cooperative, calm; still odd behaviors, talking to himself, laughing at inappropriate times; can only tolerate short interactions; patient is not in distress; dressed in casual attire, messy hair and disheveled, but improved hygiene; mood is described as pretty good eye contact improved; Speech is normal volume and rate; no psychomotor agitation; thought process is more goal directed but concrete; Thought content is perseverative on discharge; frequently asks about, Concerta; internally preoccupied; does not think he has a psychiatric illness; denies SI; no intent; no HI; Denies AVH however patient is consistently responding to internal stimuli. Patients insight and judgment impaired. Diagnostics Vital Signs (24Hr): Vital Signs - 24 hr 08/05/24 12:53 08/05/24 20:00 08/06/24 07:57 Temperature 97.7 F Pulse Rate 68 Respiratory Rate 18 18 Blood Pressure 116/65 102/56 L Pulse Oximetry 97 Oxygen Delivery Method Room Air BMI result Body Mass Index 28.8 Labs 07/17/24 14:49 07/26/24 16:18 Medications Medications Current Medications Acetaminophen (Acetaminophen 325 Mg Tablet) 650 mg PO Q6H PRN PRN Reason: Headache/Pain, Scale 1-10 Al Hydroxide/Mg Hydroxide (Magnesium Hydrox/Alum Hydrox 30 Ml Oral.Susp) 30 ml PO Q6H PRN PRN Reason: Heartburn/Nausea Bupropion HCl (Bupropion Hcl 75 Mg Tablet) 75 mg PO DAILY JESSICA Last Admin: 08/06/24 08:20 Dose: 75 mg Clonidine HCl (Clonidine Hcl 0.1 Mg Tablet) 0.1 mg PO Q4H PRN; Protocol PRN Reason: Anxiety Last Admin: 08/05/24 12:53 Dose: 0.1 mg Hydroxyzine HCl (Hydroxyzine Hcl 25 Mg Tablet) 25 mg PO Q6H PRN PRN Reason: mild anxiety/insomnia Last Admin: 08/05/24 12:25 Dose: 25 mg Magnesium Hydroxide (Milk Of Magnesia 30 Ml Oral.Susp) 30 ml PO DAILY PRN PRN Reason: Constipation Nicotine (Nicotine 21 Mg Patch.Td24) 21 mg TRANSDERMA DAILY PRN PRN Reason: smoking cessation Last Admin: 08/05/24 11:30 Dose: 21 mg Nicotine Polacrilex (Nicotine Polacrilex 2 Mg Gum) 4 mg BUCCAL Q2H PRN PRN Reason: Nicotine Cravings Last Admin: 08/05/24 15:59 Dose: 4 mg Olanzapine (Olanzapine 5 Mg Tablet) 5 mg PO Q4H PRN PRN Reason: severe agitation Last Admin: 08/01/24 16:54 Dose: 5 mg Quetiapine Fumarate (Quetiapine Fumarate 50 Mg Tablet) 50 mg PO BID PRN PRN Reason: mod to severe anxiety Last Admin: 08/05/24 15:59 Dose: 50 mg Sodium Chloride (Sodium Chloride 0.65 % Nasal 44 Ml Sprbtl) 1 spray NOSTRIL-B Q1H PRN PRN Reason: Congestion Trazodone HCl (Trazodone Hcl 50 Mg Tablet) 50 mg PO BEDTIME PRN PRN Reason: Insomnia Last Admin: 07/31/24 20:35 Dose: 50 mg Allergies Allergies Allergy/AdvReac Type Severity Reaction Status Date / Time strawberry Allergy Mild Itching Verified 07/17/24 14:35 cefazolin Allergy Unknown Itching Verified 07/17/24 14:35 sulfamethoxazole Allergy Unknown Itching Verified 07/17/24 14:35 [From Bactrim] trimethoprim [From Bactrim] Allergy Unknown Itching Verified 07/17/24 14:35 lorazepam [From Ativan] AdvReac Agitated Verified 07/17/24 14:35 lithium AdvReac Unknown other Uncoded 11/29/23 21:03 Assessment & Plan Assessment & Plan (1) Schizoaffective disorder, bipolar type: Status: Acute Code(s): F25.0 - Schizoaffective disorder, bipolar type (2) Anxiety: Status: Chronic Code(s): F41.9 - Anxiety disorder, unspecified Plan HPI: Patient is a 28-year-old male with history of schizoaffective disorder, bipolar type, history of polysubstance abuse who presents via EMS for manic and delusional behaviors. Patient is a poor historian, lying in bed, not opening his eyes, and offering little information. Initially, patient was talking with the nurse but 1 minute later, as soon as narrative writer walked in to talk with patient, he kept his eyes closed and refused to respond at all to narrative writer. A little later on on re-approached, patient is willing to briefly engage. He says that he is doing good. On inquiry, he says I have no idea why he is here in the hospital; narrative writer shared that his parents felt he was unsafe, disorganized and destroying property which he denies, even though narrative writer mentioned that his mother showed pictures of damaging his apartment. Patient refuses to sign in and remains on a 12 B. Patient took risperidone (he initially spit it out but then took it) this morning and says he will keep taking it but refuses the long-acting injectable. he denies any AVH, SI or HI. Patient's mother, Patsy who is also patient's healthcare proxy reported collateral. She says he has not been taking medications consistently has been very disorganized, has destroyed the apartment that she and her own and pay for, including smashing several television sets, multiple cell phones, refrigerators and other appliances and items, taking off all the door in the apartments (she provided pictures); she says he has been disorganized, not showering at all attending to ADLs, acting confused, and doing strange things such as snorting salt... Patient yelling at her, demanding things such as groceries which she buys and which he then proceeds to throwing the trash... Formulation/clinical reasoning: Patient has well documented history of schizoaffective disorder, bipolar type. Patient had very similar presentation on his last admission January 2024, but responded well with p.o. Risperdal and then on long-acting Risperdal product Uzedy (also on Wellbutrin XL 150 mg), organized, attending to ADLs, in good behavioral and impulse control and even developed some limited insight, briefly acknowledging that he did have paranoid delusions and auditory hallucinations prior to taking medication... However, patient has a long history of medication non-adherence and decompensation which is again resulting in need for psychiatric hospitalization. On the unit, he is with odd behaviors and malodorous (patient did ask for and ostensibly took a shower but emerged remaining malodorous and with matted hair). Patient is currently taking a low dose of Risperdal (though intermittently refused); however this dose is inadequate, patient does not want medication adjustments and refuses long-acting inectable Risperdal which is essential to sustained function in the community; he has no insight at all and narrative writer is convinced that patient will stop taking medications (or take them inadequately) immediately if he were to discharge. Invoke HCP: Patient has a signed healthcare proxy on file. Patient is disorganized and unable to function in the community; he does not have capacity to make medical decisions for himself and so narrative writer will invoke this healthcare proxy. Hospital course: 07/19 Patient difficult with which to engage and denies all psychiatric symptoms. He says I want to get off medication... Sample Taker Operator shares his family's concerns about his behaviors but patient tells narrative writer I was doing good at home... Patient talking to narrative writer holding his hand in front of his mouth. At 1 point patient stopped talking to narrative writer completely, keeping his eyes closed but then responded later. Patient does not want to stay in the hospital and Sample Taker Operator informed patient of involuntary commitment and invoking healthcare proxy. Patient's mother present who gave more collateral. She says that after his last discharge, he refused to get long-acting injectable and would not take medication. In March he took a low dose of Risperdal for 2 days but then not again until a couple of weeks later. At that time he took Risperdal 2 mg b.i.d. for 10 days and she reports it was the best days ever... That patient was doing well. However he stopped medication and again became disorganized. She says that patient has destroyed the apartment and shows narrative writer multiple pictures of broken televisions, other furniture, flipping over the refrigerator... Patient opened all the drawers throughout the apartment for some reason leaving them open; took off all the anterior doors off the hinges; she says that he broke the furnace somehow and the apartment complex was without heat; now the upstairs Renter is now moving out because does not want to have to deal with the heat going off. She says he took his bed out and put it in the yd; whenever she buys him food he immediately deems it into the trash. She said over the past couple weeks patient has been increasingly agitated and aggressive, once posturing aggressively towards his father; patient angrily threatened his mom yelling leave this house or I'll push you again... , yelling in her face with spittle coming out of his mouth.. Mother says she is scared, felt threatened and left. She said she called the police who know the family; she reports that patient postured aggressively towards 1 of the police officers but because the officer knew him, told his partner to stand down and they thus brought him to the hospital 07/20 pt remains psychotic, talking to himself; patient is difficult with which to engage. Nursing observing patient cheeking Risperdal and spitting out the garbage. Sample Taker Operator discussed taking Risperdal with patient who has some ambivalence and told narrative writer he would take it but then that he did not want it and needed something that would help [him] both sleep and drive... He then said he would take it even it increased dose of 2 mg b.i.d. -Patient remains with bizarre behaviors. Patient does not look at narrative writer when talking; during conversation he will intermittently stop talking in the middle of conversation, stare off, sometimes muttering to himself and then restart talking... Patient lining up sugar packets and cards on his bed in specific ways; in the milieu, narrative writer observed patient jumping on a chair and hopping around in the kitchen 07/21 Nursing continue to observe patient cheeking Risperdal than spitting it out. Remains difficult with which to engage and will sometimes not respond to narrative writer at all. Remains with odd, behaviors and internally preoccupied -switch to liquid Risperdal 07/22 Patient refused liquid Risperdal last night but took it this morning. Patient tells narrative writer he will keep taking the Risperdal, since he likes the taste of the liquid Risperdal. Patient remains with disorganized behaviors; patient laughing out loud. Sample Taker Operator observed patient going into the kitchen, taking something out of the refrigerator, sitting down in a chair and waiting a few sec and then putting it back in the refrigerator; patient would then going to his room, run around his bed and then back into the kitchen to repeat the same behavior. 07/23 remains disorganized, internally pre-occupied. took risperdal last night and today 07/24 Patient remains with very odd behaviors. On approach, patient turns and quickly walks away; narrative writer catches up with patient and he is willing to talk but turns at an angle and looks away while talking. He says he is good and that he just wants some paper to draw. Today patient had white sticky substance covering the length of multiple pigtails in his hair; narrative writer asked about this and patient said it was tooth paste. Sample Taker Operator asked what for and patient said I just woke up this way... He then walks away quickly. -has been taking liquid Risperdal; says he likes the limb and flavored 07/25 pt remains disorganized, psychotic. Explained to pt court tomorrow which he was surprised about (though has been informed). Pt asks to switch from risperdal to ADD medication; then asks to switch to happy medication. He likes the idea of restarting Wellbutrin. Patient stops talking to narrative writer and attends to internal stimuli, seemingly oblivious to writers presence...conversation never resumes. Instead, pt continues to draw smilie face's and hearts on a piece of paper over and over Impression: pt remains floridly psychotic with disorganized speech and behavior. Patient cannot distinguish reality from delusion. Pt is fully incapable of caring for himself in the community and would not be able to acquire food or retirement on his own; and on his own he would be vulnerable to predation. He has no insight at all into his psychiatric illness or his need for medication and is only taking Liquid Risperdal since he likes the taste of it. Were patient to discharge today, he would very soon cease taking medication. 07/26 c/o nasal congestion; covid/rsv ordered and negative Pt initially refused Risperdal last night but then took it later on. Pt sitting in room, in dark, drawing something that resembles an equation, he says it's something i might make later on Pt said he wanted to talk about discharge and narrative writer reminded him about court today and that the pack operator would decide; he said he does not want to attend court due to anxiety Court civilly committed patient involuntarily to treatment with substituted judgment -will start with Uzedy 100mg; this will last for 1 month; anticipating it will take patient at least 1 month to stabilize; plan will be to give patient Uzedy 200mg prior to leaving which will give him a longer period of stability in the community 07/27: Active on unit. guarded. Pt responding with one word answers to questions. Patient reports feeling fine ; pt was informed of Uzedy injection ordered for today. Pt did not acknowledge T/W and proceeded to close eyes. Pt was encouraged to inform RN if he has any questions. 07/28 seems more withdrawn today-one word answers to nursing, questioning provider re dc- CTP 07/29 - better more engagable- talking getting up getting meals= needs adls- CTP 07/30 pt a little more organized in that has conversation for longer. He says he got the shot (ANDRE of risperdal) and is wondering when he can go home. He currently accepts that this can be discussed with him and parents but would like to see pt closer to his regular self. Pt says he is suicidal and can he get on the antidepressant wellbutrin. No plans or intentions, just thoughts but really wants to -start - wellbutrin -still no shower, and disheveled, internally pre-occupied and no insight -start Wellbutrin; pt stable enough continue po risperdal for couple days especially now starting wellbutrin; will soon dc 07/31 SI resolved. although some improvement patient remains disorganized and starts off saying at home he has nothing to do except for singing, dancing and having business ideas... Mom present Discussed mom's concern with Wellbutrin XL causing too much energy verses the SR. Pt however likes the long acting XL 150mg since it lasts all day long. Had the same conversation with mom last admission when patient then also waned 150mg and disagreed with this mom's perspective; that time as now, narrative writer, staff do not notice any negative effect. he felt that 100mg did not help his mood enough and did not last as long -Patient had moment of insight and said my tyoughts are too mixed up in my head where i'm not sure what's real anymore....is risperdaone the right medicine? then i'll stay on it...i get lost in this imaginary world -However moments later he said i don't think i have anything (any psych illness) and repeated he does not feel he 08/01Remains disorganized with behavior, internally preoccupied, odd, dancing around the unit; talking to himself at length. met with his mother and patient says he is fine with her being his healthcare proxy in making medical decisions. Patient denies all psychiatric illness and does not think he has a psychiatric problem or that he needs medications. Asks if he can go home today, temporarily accepting that he can not 08/02 Patient wanted Wellbutrin to be discontinued, saying it makes him anxious and that he feels better without it. Also that he likes Seroquel which was started for anxiety and says this is helping. Patient says he is fine asks for discharge but temporarily accept not possible. Remains internally preoccupied talking himself 08/03 Patient asks for Concerta which he says he was on as an adolescent, something to help him focus and to help his mood. Sample Taker Operator explained what this medication is not currently possible however revisited the idea Wellbutrin. Patient wanted to be back on Wellbutrin but not the long-acting 1, instead the immediate release to which narrative writer agreed. Patient again asked for discharge home. Sample Taker Operator explained why he is not ready with which patient is agreed. Sample Taker Operator tried some reality testing, reminding patient that he destroyed the apartment he was living in; patient denied this. Sample Taker Operator explained that his mother had numerous pictures about it and patient said he disagreed but that that is in the past. 08/04: Continue current plans and regimen 08/05: Continue current regimen and plans Impression: Patient remains without any insight at all. He is disorganized and can only remain appropriate for brief interactions. Patient where he would be discharged will not take medications, will not get next long-acting injectable and will remain psychotic, disorganized and unable to function on his own. 08/06 remains without insight; continue current treatment plan Plan: Section 8/8a patient involuntary committed with substituted judgment Healthcare proxy affirmed Q 15 minute checks Medications: Seroquel p.r.n. for anxiety Continue Wellbutrin IR 75 mg daily; patient says maybe he will take it b.i.d. but will try it like this 1st DC'd Wellbutrin ER 150mg; saying is making him anxious Risperdal Uzedy 100 mg q30 days: received on 07/27 DC Risperdal (liquid) 2 mg b.i.d. will start up again if psychosis worsens -Prior to DC, after 30 days will follow-up with Risperdal Uzedy 200 mg Past med trials: Pranav: Did not seem to work Medications on Court-ordered substituted judgment: Risperdal up to 6 mg Uzedy up to 200 mg q.2 months Clozaril Zyprexa Paliperidone/Invega including Trinza Ziprasidone Depakote Patient educated on: diagnosis and medication risk/benefits Informed Consent: understands, does not understand and further education needed Reason for continued inpatient stay Substantial Risk for: rapid decompensation Time Spent With Patient Time: Total time managing care of this patient today ____ minutes.
[2024-08-06 20:00] VITALS: BP 130/75; PULSE 80; RESP 16; TEMP 36.9; O2SAT 97
[2024-08-07 08:00] VITALS: BP 132/60; PULSE 73; RESP 20; TEMP 36.6; O2SAT 97
[2024-08-07] MEDS: buPROPion HCL 75 MG TABLET PO (08:54)
[2024-08-07] MEDS: Nicotine Polacrilex 2 MG GUM 4 MG BUCCAL ×2 (10:03→15:41)
[2024-08-07] MEDS: hydrOXYzine HCL 25 MG TABLET PO (10:03)
[2024-08-07] MEDS: Nicotine 21 MG PATCH.TD24 TRANSDERMA (10:03)
--- NOTE | 2024-08-07 13:43 | P.PNPSI_ITS ---
Subjective Subjective Date of Service: 08/07/24 Reason For Visit: Schizoaffective Disorder, bipolar type Interim History: Met with patient; discussed with team Patient confused; he keeps asking for Wellbutrin to be discontinued and then to be restarted. He is asking for it to be restarted with the long-acting now. Patient remains briefly able to happen organized discussion but quickly becomes anxious, internally preoccupied. Patient can not seem to talk about psychotic symptoms and on keno writer/runner's inquiry, denies any history of psychotic symptoms including his bizarre and disorganized behavior at home resulting in significant damage to his apartment. Mental Status Exam Mental Status Exam Narrative: Pt is alert and oriented; behavior is more cooperative, calm; still odd behaviors, talking to himself, laughing at inappropriate times; can only tolerate short interactions; patient is not in distress; dressed in casual attire, messy hair and disheveled, marginal hygiene; mood is described as good eye contact improved but still looks away; Speech is normal volume and rate; some mild psychomotor agitation; thought process is more goal directed but concrete; Thought content is perseverative on discharge, minor medication changes; frequently asks about, Concerta; internally preoccupied; does not think he has a psychiatric illness; denies SI; no intent; no HI; Denies AVH however patient is consistently responding to internal stimuli. Patients insight and judgment impaired. Diagnostics Vital Signs (24Hr): Vital Signs - 24 hr 08/06/24 20:00 08/07/24 08:00 Temperature 98.5 F 97.9 F Pulse Rate 80 73 Respiratory Rate 16 20 Blood Pressure 130/75 132/60 Pulse Oximetry 97 97 Oxygen Delivery Method Room Air Room Air BMI result Body Mass Index 28.8 Labs 07/17/24 14:49 07/26/24 16:18 Medications Medications Current Medications Acetaminophen (Acetaminophen 325 Mg Tablet) 650 mg PO Q6H PRN PRN Reason: Headache/Pain, Scale 1-10 Al Hydroxide/Mg Hydroxide (Magnesium Hydrox/Alum Hydrox 30 Ml Oral.Susp) 30 ml PO Q6H PRN PRN Reason: Heartburn/Nausea Bupropion HCl (Bupropion Hcl 75 Mg Tablet) 75 mg PO DAILY JESSICA Last Admin: 08/07/24 08:54 Dose: 75 mg Clonidine HCl (Clonidine Hcl 0.1 Mg Tablet) 0.1 mg PO Q4H PRN; Protocol PRN Reason: Anxiety Last Admin: 08/05/24 12:53 Dose: 0.1 mg Hydroxyzine HCl (Hydroxyzine Hcl 25 Mg Tablet) 25 mg PO Q6H PRN PRN Reason: mild anxiety/insomnia Last Admin: 08/07/24 10:03 Dose: 25 mg Magnesium Hydroxide (Milk Of Magnesia 30 Ml Oral.Susp) 30 ml PO DAILY PRN PRN Reason: Constipation Nicotine (Nicotine 21 Mg Patch.Td24) 21 mg TRANSDERMA DAILY PRN PRN Reason: smoking cessation Last Admin: 08/07/24 10:03 Dose: 21 mg Nicotine Polacrilex (Nicotine Polacrilex 2 Mg Gum) 4 mg BUCCAL Q2H PRN PRN Reason: Nicotine Cravings Last Admin: 08/07/24 10:03 Dose: 4 mg Olanzapine (Olanzapine 5 Mg Tablet) 5 mg PO Q4H PRN PRN Reason: severe agitation Last Admin: 08/01/24 16:54 Dose: 5 mg Quetiapine Fumarate (Quetiapine Fumarate 50 Mg Tablet) 50 mg PO BID PRN PRN Reason: mod to severe anxiety Last Admin: 08/05/24 15:59 Dose: 50 mg Sodium Chloride (Sodium Chloride 0.65 % Nasal 44 Ml Sprbtl) 1 spray NOSTRIL-B Q1H PRN PRN Reason: Congestion Trazodone HCl (Trazodone Hcl 50 Mg Tablet) 50 mg PO BEDTIME PRN PRN Reason: Insomnia Last Admin: 07/31/24 20:35 Dose: 50 mg Allergies Allergies Allergy/AdvReac Type Severity Reaction Status Date / Time strawberry Allergy Mild Itching Verified 07/17/24 14:35 cefazolin Allergy Unknown Itching Verified 07/17/24 14:35 sulfamethoxazole Allergy Unknown Itching Verified 07/17/24 14:35 [From Bactrim] trimethoprim [From Bactrim] Allergy Unknown Itching Verified 07/17/24 14:35 lorazepam [From Ativan] AdvReac Agitated Verified 07/17/24 14:35 lithium AdvReac Unknown other Uncoded 11/29/23 21:03 Assessment & Plan Assessment & Plan (1) Schizoaffective disorder, bipolar type: Status: Acute Code(s): F25.0 - Schizoaffective disorder, bipolar type (2) Anxiety: Status: Chronic Code(s): F41.9 - Anxiety disorder, unspecified Plan HPI: Patient is a 28-year-old male with history of schizoaffective disorder, bipolar type, history of polysubstance abuse who presents via EMS for manic and delusional behaviors. Patient is a poor historian, lying in bed, not opening his eyes, and offering little information. Initially, patient was talking with the nurse but 1 minute later, as soon as keno writer/runner walked in to talk with patient, he kept his eyes closed and refused to respond at all to keno writer/runner. A little later on on re-approached, patient is willing to briefly engage. He says that he is doing good. On inquiry, he says I have no idea why he is here in the hospital; keno writer/runner shared that his parents felt he was unsafe, disorganized and destroying property which he denies, even though keno writer/runner mentioned that his mother showed pictures of damaging his apartment. Patient refuses to sign in and remains on a 12 B. Patient took risperidone (he initially spit it out but then took it) this morning and says he will keep taking it but refuses the long- acting injectable. he denies any AVH, SI or HI. Patient's mother, Patsy who is also patient's healthcare proxy reported collateral. She says he has not been taking medications consistently has been very disorganized, has destroyed the apartment that she and her own and pay for, including smashing several television sets, multiple cell phones, refrigerators and other appliances and items, taking off all the door in the apartments (she provided pictures); she says he has been disorganized, not showering at all attending to ADLs, acting confused, and doing strange things such as snorting salt... Patient yelling at her, demanding things such as groceries which she buys and which he then proceeds to throwing the trash... Formulation/clinical reasoning: Patient has well documented history of schizoaffective disorder, bipolar type. Patient had very similar presentation on his last admission January 2024, but responded well with p.o. Risperdal and then on long-acting Risperdal product Uzedy (also on Wellbutrin XL 150 mg), organized, attending to ADLs, in good behavioral and impulse control and even developed some limited insight, briefly acknowledging that he did have paranoid delusions and auditory hallucinations prior to taking medication... However, patient has a long history of medication non-adherence and decompensation which is again resulting in need for psychiatric hospitalization. On the unit, he is with odd behaviors and malodorous (patient did ask for and ostensibly took a shower but emerged remaining malodorous and with matted hair). Patient is currently taking a low dose of Risperdal (though intermittently refused); however this dose is inadequate, patient does not want medication adjustments and refuses long-acting inectable Risperdal which is essential to sustained function in the community; he has no insight at all and keno writer/runner is convinced that patient will stop taking medications (or take them inadequately) immediately if he were to discharge. Invoke HCP: Patient has a signed healthcare proxy on file. Patient is disorganized and unable to function in the community; he does not have capacity to make medical decisions for himself and so keno writer/runner will invoke this healthcare proxy. Hospital course: 07/19 Patient difficult with which to engage and denies all psychiatric symptoms. He says I want to get off medication... Information Clerk Brokerage shares his family's concerns about his behaviors but patient tells keno writer/runner I was doing good at home... Patient talking to keno writer/runner holding his hand in front of his mouth. At 1 point patient stopped talking to keno writer/runner completely, keeping his eyes closed but then responded later. Patient does not want to stay in the hospital and Information Clerk Brokerage informed patient of involuntary commitment and invoking healthcare proxy. Patient's mother present who gave more collateral. She says that after his last discharge, he refused to get long-acting injectable and would not take medication. In March he took a low dose of Risperdal for 2 days but then not again until a couple of weeks later. At that time he took Risperdal 2 mg b.i.d. for 10 days and she reports it was the best days ever... That patient was doing well. However he stopped medication and again became disorganized. She says that patient has destroyed the apartment and shows keno writer/runner multiple pictures of broken televisions, other furniture, flipping over the refrigerator... Patient opened all the drawers throughout the apartment for some reason leaving them open; took off all the anterior doors off the hinges; she says that he broke the furnace somehow and the apartment complex was without heat; now the upstairs Renter is now moving out because does not want to have to deal with the heat going off. She says he took his bed out and put it in the yd; whenever she buys him food he immediately deems it into the trash. She said over the past couple weeks patient has been increasingly agitated and aggressive, once posturing aggressively towards his father; patient angrily threatened his mom yelling leave this house or I'll push you again... , yelling in her face with spittle coming out of his mouth.. Mother says she is scared, felt threatened and left. She said she called the police who know the family; she reports that patient postured aggressively towards 1 of the police officers but because the officer knew him, told his partner to stand down and they thus brought him to the hospital 07/20 pt remains psychotic, talking to himself; patient is difficult with which to engage. Nursing observing patient cheeking Risperdal and spitting out the garbage. Information Clerk Brokerage discussed taking Risperdal with patient who has some ambivalence and told keno writer/runner he would take it but then that he did not want it and needed something that would help [him] both sleep and drive... He then said he would take it even it increased dose of 2 mg b.i.d. -Patient remains with bizarre behaviors. Patient does not look at keno writer/runner when talking; during conversation he will intermittently stop talking in the middle of conversation, stare off, sometimes muttering to himself and then restart talking... Patient lining up sugar packets and cards on his bed in specific ways; in the milieu, keno writer/runner observed patient jumping on a chair and hopping around in the kitchen 07/21 Nursing continue to observe patient cheeking Risperdal than spitting it out. Remains difficult with which to engage and will sometimes not respond to keno writer/runner at all. Remains with odd, behaviors and internally preoccupied -switch to liquid Risperdal 07/22 Patient refused liquid Risperdal last night but took it this morning. Patient tells keno writer/runner he will keep taking the Risperdal, since he likes the taste of the liquid Risperdal. Patient remains with disorganized behaviors; patient laughing out loud. Information Clerk Brokerage observed patient going into the kitchen, taking something out of the refrigerator, sitting down in a chair and waiting a few sec and then putting it back in the refrigerator; patient would then going to his room, run around his bed and then back into the kitchen to repeat the same behavior. 07/23 remains disorganized, internally pre-occupied. took risperdal last night and today 07/24 Patient remains with very odd behaviors. On approach, patient turns and quickly walks away; keno writer/runner catches up with patient and he is willing to talk but turns at an angle and looks away while talking. He says he is good and that he just wants some paper to draw. Today patient had white sticky substance covering the length of multiple pigtails in his hair; keno writer/runner asked about this and patient said it was tooth paste. Information Clerk Brokerage asked what for and patient said I just woke up this way... He then walks away quickly. -has been taking liquid Risperdal; says he likes the limb and flavored 07/25 pt remains disorganized, psychotic. Explained to pt court tomorrow which he was surprised about (though has been informed). Pt asks to switch from risperdal to ADD medication; then asks to switch to happy medication. He likes the idea of restarting Wellbutrin. Patient stops talking to keno writer/runner and attends to internal stimuli, seemingly oblivious to writers presence...conversation never resumes. Instead, pt continues to draw smilie face's and hearts on a piece of paper over and over Impression: pt remains floridly psychotic with disorganized speech and behavior. Patient cannot distinguish reality from delusion. Pt is fully incapable of caring for himself in the community and would not be able to acquire food or nursing home on his own; and on his own he would be vulnerable to predation. He has no insight at all into his psychiatric illness or his need for medication and is only taking Liquid Risperdal since he likes the taste of it. Were patient to discharge today, he would very soon cease taking medication. 07/26 c/o nasal congestion; covid/rsv ordered and negative Pt initially refused Risperdal last night but then took it later on. Pt sitting in room, in dark, drawing something that resembles an equation, he says it's something i might make later on Pt said he wanted to talk about discharge and keno writer/runner reminded him about court today and that the director of fundraising would decide; he said he does not want to attend court due to anxiety Court civilly committed patient involuntarily to treatment with substituted judgment -will start with Uzedy 100mg; this will last for 1 month; anticipating it will take patient at least 1 month to stabilize; plan will be to give patient Uzedy 200mg prior to leaving which will give him a longer period of stability in the community 07/27: Active on unit. guarded. Pt responding with one word answers to questions. Patient reports feeling fine ; pt was informed of Uzedy injection ordered for today. Pt did not acknowledge T/W and proceeded to close eyes. Pt was encouraged to inform RN if he has any questions. 07/28 seems more withdrawn today-one word answers to nursing, questioning provider re dc- CTP 07/29 - better more engagable- talking getting up getting meals= needs adls- CTP 07/30 pt a little more organized in that has conversation for longer. He says he got the shot (ANDRE of risperdal) and is wondering when he can go home. He currently accepts that this can be discussed with him and parents but would like to see pt closer to his regular self. Pt says he is suicidal and can he get on the antidepressant wellbutrin. No plans or intentions, just thoughts but really wants to -start - wellbutrin -still no shower, and disheveled, internally pre-occupied and no insight -start Wellbutrin; pt stable enough continue po risperdal for couple days especially now starting wellbutrin; will soon dc 07/31 SI resolved. although some improvement patient remains disorganized and starts off saying at home he has nothing to do except for singing, dancing and having business ideas... Mom present Discussed mom's concern with Wellbutrin XL causing too much energy verses the SR. Pt however likes the long acting XL 150mg since it lasts all day long. Had the same conversation with mom last admission when patient then also waned 150mg and disagreed with this mom's perspective; that time as now, keno writer/runner, staff do not notice any negative effect. he felt that 100mg did not help his mood enough and did not last as long -Patient had moment of insight and said my tyoughts are too mixed up in my head where i'm not sure what's real anymore....is risperdaone the right medicine? then i'll stay on it...i get lost in this imaginary world -However moments later he said i don't think i have anything (any psych illness) and repeated he does not feel he 08/01Remains disorganized with behavior, internally preoccupied, odd, dancing around the unit; talking to himself at length. met with his mother and patient says he is fine with her being his healthcare proxy in making medical decisions. Patient denies all psychiatric illness and does not think he has a psychiatric problem or that he needs medications. Asks if he can go home today, temporarily accepting that he can not 08/02 Patient wanted Wellbutrin to be discontinued, saying it makes him anxious and that he feels better without it. Also that he likes Seroquel which was started for anxiety and says this is helping. Patient says he is fine asks for discharge but temporarily accept not possible. Remains internally preoccupied talking himself 08/03 Patient asks for Concerta which he says he was on as an adolescent, something to help him focus and to help his mood. Information Clerk Brokerage explained what this medication is not currently possible however revisited the idea Wellbutrin. Patient wanted to be back on Wellbutrin but not the long-acting 1, instead the immediate release to which keno writer/runner agreed. Patient again asked for discharge home. Information Clerk Brokerage explained why he is not ready with which patient is agreed. Information Clerk Brokerage tried some reality testing, reminding patient that he destroyed the apartment he was living in; patient denied this. Information Clerk Brokerage explained that his mother had numerous pictures about it and patient said he disagreed but that that is in the past. 08/04: Continue current plans and regimen 08/05: Continue current regimen and plans Impression: Patient remains without any insight at all. He is disorganized and can only remain appropriate for brief interactions. Patient where he would be discharged will not take medications, will not get next long-acting injectable and will remain psychotic, disorganized and unable to function on his own. 08/06 remains without insight; continue current treatment plan 08/07 Patient confused; he keeps asking for Wellbutrin to be discontinued and then to be restarted. He is asking for it to be restarted with the long-acting now. Patient remains briefly able to happen organized discussion but quickly becomes anxious, internally preoccupied. Patient can not seem to talk about psychotic symptoms and on keno writer/runner's inquiry, denies any history of psychotic symptoms including his bizarre and disorganized behavior at home resulting in significant damage to his apartment. -patient continues to ask for Concerta despite having had numerous conversations with keno writer/runner about this; it is keno writer/runner's opinion that patient is being directed by auditory hallucinations regarding Concerta and Wellbutrin Plan: Section 8/ patient involuntary committed with substituted judgment Healthcare proxy affirmed Q 15 minute checks Medications: Seroquel p.r.n. for anxiety +/-Wellbutrin based on pt; ER 150mg daily (pt request this instead of Wellbutrin IR 75 mg daily) Pending: Risperdal Uzedy 200 mg on 08/22/24 (on 07/27 received Risperdal Uzedy 100 mg) DC Risperdal (liquid) 2 mg b.i.d. will start up again if psychosis worsens -Prior to DC, after 30 days will follow-up with Risperdal Uzedy 200 mg Past med trials: Vraylar: Did not seem to work Medications on Court-ordered substituted judgment: Risperdal up to 6 mg Uzedy up to 200 mg q.2 months Clozaril Zyprexa Paliperidone/Invega including Trinza Ziprasidone Depakote Patient educated on: diagnosis and medication risk/benefits Informed Consent: understands, does not understand and further education needed Reason for continued inpatient stay Substantial Risk for: inability to function Time Spent With Patient Time: Total time managing care of this patient today ____ minutes.
[2024-08-07 19:56] VITALS: BP 122/60; PULSE 76; RESP 16; TEMP 36.2; O2SAT 99
[2024-08-08 08:00] VITALS: BP 103/65; PULSE 92; TEMP 36.7; O2SAT 96
[2024-08-08] MEDS: buPROPion HCl XL 150 MG TAB.ER.24H PO (08:26)
[2024-08-08] MEDS: Nicotine Polacrilex 2 MG GUM 4 MG BUCCAL (10:58)
[2024-08-08] MEDS: QUEtiapine Fumarate 25 MG TABLET PO (12:44)
[2024-08-08] MEDS: hydrOXYzine HCL 25 MG TABLET PO (12:45)
[2024-08-08] MEDS: Nicotine 21 MG PATCH.TD24 TRANSDERMA (12:45)
--- NOTE | 2024-08-08 18:35 | P.PNPSI_ITS ---
Subjective Subjective Date of Service: 08/08/24 Reason For Visit: Schizoaffective Disorder, bipolar type Interim History: Met with patient; discussed with team Patient approaches process description writer to say that he does not think he has a psychiatric illness at all, that he has had no psychotic symptoms however and he just has anxiety. He says he does not think he needs Risperdal and that he will absolutely not take it after he is discharged. Spoon Maker tries to share with him his behaviors when he is off this medication again referring to damaging his apartment however patient explains this by saying it was his 1st apartment, out in his own; then he says he is just a kid though process description writer reminds him that he is 28 years old and that this is not normal behavior. Patient says he disagrees and reiterates that he does not think he needs Risperdal and that he will not be taking it on discharge. Mental Status Exam Mental Status Exam Narrative: Pt is alert and oriented; behavior is more cooperative, calm; still odd behaviors, talking to himself, laughing at inappropriate times; can only tolerate short interactions; patient is not in distress; dressed in casual attire, messy hair and disheveled, malodorous; mood is described as good eye contact improved but still looks away; Speech is normal volume and rate; some mild psychomotor agitation; thought process is more goal directed but concrete; Thought content is perseverative on discharge, minor medication changes; frequently asks about, Concerta; internally preoccupied; does not think he has a psychiatric illness; denies SI; no intent; no HI; Denies AVH however patient is consistently responding to internal stimuli. Patients insight and judgment impaired. Diagnostics Vital Signs (24Hr): Vital Signs - 24 hr 08/07/24 19:56 08/08/24 08:00 Temperature 97.1 F 98.1 F Pulse Rate 76 92 Respiratory Rate 16 Blood Pressure 122/60 103/65 Pulse Oximetry 99 96 Oxygen Delivery Method Room Air Room Air BMI result Body Mass Index 28.8 Labs 07/17/24 14:49 07/26/24 16:18 Medications Medications Current Medications Acetaminophen (Acetaminophen 325 Mg Tablet) 650 mg PO Q6H PRN PRN Reason: Headache/Pain, Scale 1-10 Al Hydroxide/Mg Hydroxide (Magnesium Hydrox/Alum Hydrox 30 Ml Oral.Susp) 30 ml PO Q6H PRN PRN Reason: Heartburn/Nausea Bupropion HCl (Bupropion Hcl Xl 150 Mg Tab.Er.24h) 150 mg PO DAILY JESSICA Last Admin: 08/08/24 08:26 Dose: 150 mg Clonidine HCl (Clonidine Hcl 0.1 Mg Tablet) 0.1 mg PO Q4H PRN; Protocol PRN Reason: Anxiety Last Admin: 08/05/24 12:53 Dose: 0.1 mg Hydroxyzine HCl (Hydroxyzine Hcl 25 Mg Tablet) 25 mg PO Q6H PRN PRN Reason: mild anxiety/insomnia Last Admin: 08/08/24 12:45 Dose: 25 mg Magnesium Hydroxide (Milk Of Magnesia 30 Ml Oral.Susp) 30 ml PO DAILY PRN PRN Reason: Constipation Nicotine (Nicotine 21 Mg Patch.Td24) 21 mg TRANSDERMA DAILY PRN PRN Reason: smoking cessation Last Admin: 08/08/24 12:45 Dose: 21 mg Nicotine Polacrilex (Nicotine Polacrilex 2 Mg Gum) 4 mg BUCCAL Q2H PRN PRN Reason: Nicotine Cravings Last Admin: 08/08/24 10:58 Dose: 4 mg Quetiapine Fumarate (Quetiapine Fumarate 25 Mg Tablet) 25 mg PO TID PRN PRN Reason: mod to severe anxiety Last Admin: 08/08/24 12:44 Dose: 25 mg Sodium Chloride (Sodium Chloride 0.65 % Nasal 44 Ml Sprbtl) 1 spray NOSTRIL-B Q1H PRN PRN Reason: Congestion Trazodone HCl (Trazodone Hcl 50 Mg Tablet) 50 mg PO BEDTIME PRN PRN Reason: Insomnia Last Admin: 07/31/24 20:35 Dose: 50 mg Allergies Allergies Allergy/AdvReac Type Severity Reaction Status Date / Time strawberry Allergy Mild Itching Verified 07/17/24 14:35 cefazolin Allergy Unknown Itching Verified 07/17/24 14:35 sulfamethoxazole Allergy Unknown Itching Verified 07/17/24 14:35 [From Bactrim] trimethoprim [From Bactrim] Allergy Unknown Itching Verified 07/17/24 14:35 lorazepam [From Ativan] AdvReac Agitated Verified 07/17/24 14:35 lithium AdvReac Unknown other Uncoded 11/29/23 21:03 Assessment & Plan Assessment & Plan (1) Schizoaffective disorder, bipolar type: Status: Acute Code(s): F25.0 - Schizoaffective disorder, bipolar type (2) Anxiety: Status: Chronic Code(s): F41.9 - Anxiety disorder, unspecified Plan HPI: Patient is a 28-year-old male with history of schizoaffective disorder, bipolar type, history of polysubstance abuse who presents via EMS for manic and delusional behaviors. Patient is a poor historian, lying in bed, not opening his eyes, and offering little information. Initially, patient was talking with the nurse but 1 minute later, as soon as process description writer walked in to talk with patient, he kept his eyes closed and refused to respond at all to process description writer. A little later on on re-approached, patient is willing to briefly engage. He says that he is doing good. On inquiry, he says I have no idea why he is here in the hospital; process description writer shared that his parents felt he was unsafe, disorganized and destroying property which he denies, even though process description writer mentioned that his mother showed pictures of damaging his apartment. Patient refuses to sign in and remains on a 12 B. Patient took risperidone (he initially spit it out but then took it) this morning and says he will keep taking it but refuses the long- acting injectable. he denies any AVH, SI or HI. Patient's mother, Patsy who is also patient's healthcare proxy reported collateral. She says he has not been taking medications consistently has been very disorganized, has destroyed the apartment that she and her own and pay for, including smashing several television sets, multiple cell phones, refrigerators and other appliances and items, taking off all the door in the apartments (she provided pictures); she says he has been disorganized, not showering at all attending to ADLs, acting confused, and doing strange things such as snorting salt... Patient yelling at her, demanding things such as groceries which she buys and which he then proceeds to throwing the trash... Formulation/clinical reasoning: Patient has well documented history of schizoaffective disorder, bipolar type. Patient had very similar presentation on his last admission January 2024, but responded well with p.o. Risperdal and then on long-acting Risperdal product Uzedy (also on Wellbutrin XL 150 mg), organized, attending to ADLs, in good behavioral and impulse control and even developed some limited insight, briefly acknowledging that he did have paranoid delusions and auditory hallucinations prior to taking medication... However, patient has a long history of medication non-adherence and decompensation which is again resulting in need for psychiatric hospitalization. On the unit, he is with odd behaviors and malodorous (patient did ask for and ostensibly took a shower but emerged remaining malodorous and with matted hair). Patient is currently taking a low dose of Risperdal (though intermittently refused); however this dose is inadequate, patient does not want medication adjustments and refuses long-acting inectable Risperdal which is essential to sustained function in the community; he has no insight at all and process description writer is convinced that patient will stop taking medications (or take them inadequately) immediately if he were to discharge. Invoke HCP: Patient has a signed healthcare proxy on file. Patient is disorganized and unable to function in the community; he does not have capacity to make medical decisions for himself and so process description writer will invoke this healthcare proxy. Hospital course: / Patient difficult with which to engage and denies all psychiatric symptoms. He says I want to get off medication... Spoon Maker shares his family's concerns about his behaviors but patient tells process description writer I was doing good at home... Patient talking to process description writer holding his hand in front of his mouth. At 1 point patient stopped talking to process description writer completely, keeping his eyes closed but then responded later. Patient does not want to stay in the hospital and Spoon Maker informed patient of involuntary commitment and invoking healthcare proxy. Patient's mother present who gave more collateral. She says that after his last discharge, he refused to get long-acting injectable and would not take medication. In March he took a low dose of Risperdal for 2 days but then not again until a couple of weeks later. At that time he took Risperdal 2 mg b.i.d. for 10 days and she reports it was the best days ever... That patient was doing well. However he stopped medication and again became disorganized. She says that patient has destroyed the apartment and shows process description writer multiple pictures of broken televisions, other furniture, flipping over the refrigerator... Patient opened all the drawers throughout the apartment for some reason leaving them open; took off all the anterior doors off the hinges; she says that he broke the furnace somehow and the apartment complex was without heat; now the upstairs Renter is now moving out because does not want to have to deal with the heat going off. She says he took his bed out and put it in the yd; whenever she buys him food he immediately deems it into the trash. She said over the past couple weeks patient has been increasingly agitated and aggressive, once posturing aggressively towards his father; patient angrily threatened his mom yelling leave this house or I'll push you again... , yelling in her face with spittle coming out of his mouth.. Mother says she is scared, felt threatened and left. She said she called the police who know the family; she reports that patient postured aggressively towards 1 of the police officers but because the officer knew him, told his partner to stand down and they thus brought him to the hospital 07/20 pt remains psychotic, talking to himself; patient is difficult with which to engage. Nursing observing patient cheeking Risperdal and spitting out the garbage. Spoon Maker discussed taking Risperdal with patient who has some ambivalence and told process description writer he would take it but then that he did not want it and needed something that would help [him] both sleep and drive... He then said he would take it even it increased dose of 2 mg b.i.d. -Patient remains with bizarre behaviors. Patient does not look at process description writer when talking; during conversation he will intermittently stop talking in the middle of conversation, stare off, sometimes muttering to himself and then restart talking... Patient lining up sugar packets and cards on his bed in specific ways; in the milieu, process description writer observed patient jumping on a chair and hopping around in the kitchen 07/21 Nursing continue to observe patient cheeking Risperdal than spitting it out. Remains difficult with which to engage and will sometimes not respond to process description writer at all. Remains with odd, behaviors and internally preoccupied -switch to liquid Risperdal 07/22 Patient refused liquid Risperdal last night but took it this morning. Patient tells process description writer he will keep taking the Risperdal, since he likes the taste of the liquid Risperdal. Patient remains with disorganized behaviors; patient laughing out loud. Spoon Maker observed patient going into the kitchen, taking something out of the refrigerator, sitting down in a chair and waiting a few sec and then putting it back in the refrigerator; patient would then going to his room, run around his bed and then back into the kitchen to repeat the same behavior. 07/23 remains disorganized, internally pre-occupied. took risperdal last night and today 07/24 Patient remains with very odd behaviors. On approach, patient turns and quickly walks away; process description writer catches up with patient and he is willing to talk but turns at an angle and looks away while talking. He says he is good and that he just wants some paper to draw. Today patient had white sticky substance covering the length of multiple pigtails in his hair; process description writer asked about this and patient said it was tooth paste. Spoon Maker asked what for and patient said I just woke up this way... He then walks away quickly. -has been taking liquid Risperdal; says he likes the limb and flavored 07/25 pt remains disorganized, psychotic. Explained to pt court tomorrow which he was surprised about (though has been informed). Pt asks to switch from risperdal to ADD medication; then asks to switch to happy medication. He likes the idea of restarting Wellbutrin. Patient stops talking to process description writer and attends to internal stimuli, seemingly oblivious to writers presence...conversation never resumes. Instead, pt continues to draw smilie face's and hearts on a piece of paper over and over Impression: pt remains floridly psychotic with disorganized speech and behavior. Patient cannot distinguish reality from delusion. Pt is fully incapable of caring for himself in the community and would not be able to acquire food or half-way on his own; and on his own he would be vulnerable to predation. He has no insight at all into his psychiatric illness or his need for medication and is only taking Liquid Risperdal since he likes the taste of it. Were patient to discharge today, he would very soon cease taking medication. 07/26 c/o nasal congestion; covid/rsv ordered and negative Pt initially refused Risperdal last night but then took it later on. Pt sitting in room, in dark, drawing something that resembles an equation, he says it's something i might make later on Pt said he wanted to talk about discharge and process description writer reminded him about court today and that the engineering surveyor would decide; he said he does not want to attend court due to anxiety Court civilly committed patient involuntarily to treatment with substituted judgment -will start with Uzedy 100mg; this will last for 1 month; anticipating it will take patient at least 1 month to stabilize; plan will be to give patient Uzedy 200mg prior to leaving which will give him a longer period of stability in the community 07/27: Active on unit. guarded. Pt responding with one word answers to questions. Patient reports feeling fine ; pt was informed of Uzedy injection ordered for today. Pt did not acknowledge T/W and proceeded to close eyes. Pt was encouraged to inform RN if he has any questions. 07/28 seems more withdrawn today-one word answers to nursing, questioning provider re dc- CTP 07/29 - better more engagable- talking getting up getting meals= needs adls- CTP 07/30 pt a little more organized in that has conversation for longer. He says he got the shot (ANDRE of risperdal) and is wondering when he can go home. He currently accepts that this can be discussed with him and parents but would like to see pt closer to his regular self. Pt says he is suicidal and can he get on the antidepressant wellbutrin. No plans or intentions, just thoughts but really wants to -start - wellbutrin -still no shower, and disheveled, internally pre-occupied and no insight -start Wellbutrin; pt stable enough continue po risperdal for couple days especially now starting wellbutrin; will soon dc 07/31 SI resolved. although some improvement patient remains disorganized and starts off saying at home he has nothing to do except for singing, dancing and having business ideas... Mom present Discussed mom's concern with Wellbutrin XL causing too much energy verses the SR. Pt however likes the long acting XL 150mg since it lasts all day long. Had the same conversation with mom last admission when patient then also waned 150mg and disagreed with this mom's perspective; that time as now, process description writer, staff do not notice any negative effect. he felt that 100mg did not help his mood enough and did not last as long -Patient had moment of insight and said my tyoughts are too mixed up in my head where i'm not sure what's real anymore....is risperdaone the right medicine? then i'll stay on it...i get lost in this imaginary world -However moments later he said i don't think i have anything (any psych illness) and repeated he does not feel he 08/01Remains disorganized with behavior, internally preoccupied, odd, dancing around the unit; talking to himself at length. met with his mother and patient says he is fine with her being his healthcare proxy in making medical decisions. Patient denies all psychiatric illness and does not think he has a psychiatric problem or that he needs medications. Asks if he can go home today, temporarily accepting that he can not 08/02 Patient wanted Wellbutrin to be discontinued, saying it makes him anxious and that he feels better without it. Also that he likes Seroquel which was started for anxiety and says this is helping. Patient says he is fine asks for discharge but temporarily accept not possible. Remains internally preoccupied talking himself 08/03 Patient asks for Concerta which he says he was on as an adolescent, something to help him focus and to help his mood. Spoon Maker explained what this medication is not currently possible however revisited the idea Wellbutrin. Patient wanted to be back on Wellbutrin but not the long-acting 1, instead the immediate release to which process description writer agreed. Patient again asked for discharge home. Spoon Maker explained why he is not ready with which patient is agreed. Spoon Maker tried some reality testing, reminding patient that he destroyed the apartment he was living in; patient denied this. Spoon Maker explained that his mother had numerous pictures about it and patient said he disagreed but that that is in the past. 08/04: Continue current plans and regimen 08/05: Continue current regimen and plans Impression: Patient remains without any insight at all. He is disorganized and can only remain appropriate for brief interactions. Patient where he would be discharged will not take medications, will not get next long-acting injectable and will remain psychotic, disorganized and unable to function on his own. 08/06 remains without insight; continue current treatment plan 08/07 Patient confused; he keeps asking for Wellbutrin to be discontinued and then to be restarted. He is asking for it to be restarted with the long-acting now. Patient remains briefly able to happen organized discussion but quickly becomes anxious, internally preoccupied. Patient can not seem to talk about psychotic symptoms and on process description writer's inquiry, denies any history of psychotic symptoms including his bizarre and disorganized behavior at home resulting in significant damage to his apartment. -patient continues to ask for Concerta despite having had numerous conversations with process description writer about this; it is process description writer's opinion that patient is being directed by auditory hallucinations regarding Concerta and Wellbutrin 08/08 Patient approaches process description writer to say that he does not think he has a psychiatric illness at all, that he has had no psychotic symptoms however and he just has anxiety. He says he does not think he needs Risperdal and that he will absolutely not take it after he is discharged. Spoon Maker tries to share with him his behaviors when he is off this medication again referring to damaging his apartment however patient explains this by saying it was his 1st apartment, out in his own; then he says he is just a kid though process description writer reminds him that he is 28 years old and that this is not normal behavior. Patient says he disagrees and reiterates that he does not think he needs Risperdal and that he will not be taking it on discharge. Impression: Patient remains without any insight at all; he remains with psychotic symptoms, internally preoccupied, odd behaviors, talking to himself. Patient also has psychotic confusion, confused due to internal preoccupations and very likely AH, to the point where patient has nearly the same conversation with process description writer every day and daily changes his mind about how he feels about very small medication changes. Patient remains with significant psychotic symptoms. Although he received long-acting Risperdal on 07/27, it is either that this dose is too low or that it has not yet reached its full therapeutic effect. Would like to add p.o. Risperdal however patient is not willing. Plan: Section 8/8a patient involuntary committed with substituted judgment Healthcare proxy affirmed Q 15 minute checks Medications: Seroquel p.r.n. for anxiety +/-Wellbutrin based on pt; ER 150mg daily (pt request this instead of Wellbutrin IR 75 mg daily) Pending: Risperdal Uzedy 200 mg on 08/22/24 (on 07/27 received Risperdal Uzedy 100 mg) DC Risperdal (liquid) 2 mg b.i.d. will start up again if psychosis worsens -Prior to DC, after 30 days will follow-up with Risperdal Uzedy 200 mg Past med trials: Vraylar: Did not seem to work Medications on Court-ordered substituted judgment: Risperdal up to 6 mg Uzedy up to 200 mg q.2 months Clozaril Zyprexa Paliperidone/Invega including Trinza Ziprasidone Depakote Patient educated on: diagnosis, medication risk/benefits and therapeutic strategies Informed Consent: does not understand Reason for continued inpatient stay Substantial Risk for: inability to function Time Spent With Patient Time: Total time managing care of this patient today ____ minutes.
[2024-08-08 20:00] VITALS: BP 135/71; PULSE 113; TEMP 36.9; O2SAT 98
[2024-08-09 07:00] VITALS: BMI 28.7
[2024-08-09 08:00] VITALS: BP 112/53; PULSE 88; TEMP 36.5; O2SAT 98
[2024-08-09] MEDS: Nicotine Polacrilex 2 MG GUM 4 MG BUCCAL ×3 (11:25→18:38)
[2024-08-09] MEDS: Nicotine 21 MG PATCH.TD24 TRANSDERMA (11:34)
[2024-08-09 20:00] VITALS: BP 122/76; PULSE 110; RESP 16; TEMP 36.9; O2SAT 96
[2024-08-10 08:31] VITALS: BP 120/62; PULSE 103; RESP 16; TEMP 36.4; O2SAT 96
[2024-08-10] MEDS: buPROPion HCl XL 150 MG TAB.ER.24H PO (11:53)
[2024-08-10] MEDS: Nicotine 21 MG PATCH.TD24 TRANSDERMA (13:52)
[2024-08-10] MEDS: QUEtiapine Fumarate 25 MG TABLET PO (13:52)
[2024-08-10] MEDS: hydrOXYzine HCL 25 MG TABLET PO (13:52)
[2024-08-10] MEDS: Nicotine Polacrilex 2 MG GUM 4 MG BUCCAL (13:53)
--- NOTE | 2024-08-10 14:19 | PC.NURSE ---
pts mother called to report she does not feel Welbutrin 150XL is helpful and makes Van more anxious. She reports He should be on 75mg Welbutrin and Seroquel at night time .
[2024-08-10 15:28] VITALS: BP 116/78
[2024-08-10] MEDS: cloNIDine HCL 0.1 MG TABLET PO (15:28)
[2024-08-10 20:00] VITALS: BP 109/54; PULSE 76; TEMP 36.8; O2SAT 96
--- NOTE | 2024-08-10 23:21 | P.PNPSI_ITS ---
Subjective Subjective Date of Service: 08/09/24 Reason For Visit: Schizoaffective Disorder, bipolar type Interim History: late entry note for pt seen on 08/09; discussed with team Patient remains going back and forth with wanting Concerta, ambivalent about Wellbutrin. Says he feels depressed and misses home. Mental Status Exam Mental Status Exam Narrative: Pt is alert and oriented; behavior is more cooperative, calm; still odd behaviors, talking to himself, laughing at inappropriate times; can only tolerate short interactions; patient is not in distress; dressed in casual attire, messy hair and disheveled, malodorous; mood is described as depressed affect mildly labile; eye contact improved but still looks away; Speech is normal volume and rate; some mild psychomotor agitation; thought process is more goal directed but concrete; Thought content is perseverative on discharge, minor medication changes; frequently asks about, Concerta; internally preoccupied; does not think he has a psychiatric illness; denies SI; no intent; no HI; Denies AVH however patient is consistently responding to internal stimuli. Patients insight and judgment impaired. Diagnostics Vital Signs (24Hr): Vital Signs - 24 hr 08/10/24 08:31 08/10/24 15:28 08/10/24 20:00 Temperature 97.6 F 98.3 F Pulse Rate 103 H 76 Respiratory Rate 16 Blood Pressure 120/62 116/78 109/54 L Pulse Oximetry 96 96 Oxygen Delivery Method Room Air Room Air BMI result Body Mass Index 28.7 Labs 07/17/24 14:49 07/26/24 16:18 Medications Medications Current Medications Acetaminophen (Acetaminophen 325 Mg Tablet) 650 mg PO Q6H PRN PRN Reason: Headache/Pain, Scale 1-10 Al Hydroxide/Mg Hydroxide (Magnesium Hydrox/Alum Hydrox 30 Ml Oral.Susp) 30 ml PO Q6H PRN PRN Reason: Heartburn/Nausea Bupropion HCl (Bupropion Hcl Xl 150 Mg Tab.Er.24h) 150 mg PO DAILY JESSICA Last Admin: 08/10/24 11:53 Dose: 150 mg Clonidine HCl (Clonidine Hcl 0.1 Mg Tablet) 0.1 mg PO Q4H PRN; Protocol PRN Reason: Anxiety Last Admin: 08/10/24 15:28 Dose: 0.1 mg Hydroxyzine HCl (Hydroxyzine Hcl 25 Mg Tablet) 25 mg PO Q6H PRN PRN Reason: mild anxiety/insomnia Last Admin: 08/10/24 13:52 Dose: 25 mg Magnesium Hydroxide (Milk Of Magnesia 30 Ml Oral.Susp) 30 ml PO DAILY PRN PRN Reason: Constipation Nicotine (Nicotine 21 Mg Patch.Td24) 21 mg TRANSDERMA DAILY PRN PRN Reason: smoking cessation Last Admin: 08/10/24 13:52 Dose: 21 mg Nicotine Polacrilex (Nicotine Polacrilex 2 Mg Gum) 4 mg BUCCAL Q2H PRN PRN Reason: Nicotine Cravings Last Admin: 08/10/24 13:53 Dose: 4 mg Quetiapine Fumarate (Quetiapine Fumarate 25 Mg Tablet) 25 mg PO TID PRN PRN Reason: mod to severe anxiety Last Admin: 08/10/24 13:52 Dose: 25 mg Sodium Chloride (Sodium Chloride 0.65 % Nasal 44 Ml Sprbtl) 1 spray NOSTRIL-B Q1H PRN PRN Reason: Congestion Trazodone HCl (Trazodone Hcl 50 Mg Tablet) 50 mg PO BEDTIME PRN PRN Reason: Insomnia Last Admin: 07/31/24 20:35 Dose: 50 mg Allergies Allergies Allergy/AdvReac Type Severity Reaction Status Date / Time strawberry Allergy Mild Itching Verified 07/17/24 14:35 cefazolin Allergy Unknown Itching Verified 07/17/24 14:35 sulfamethoxazole Allergy Unknown Itching Verified 07/17/24 14:35 [From Bactrim] trimethoprim [From Bactrim] Allergy Unknown Itching Verified 07/17/24 14:35 lorazepam [From Ativan] AdvReac Agitated Verified 07/17/24 14:35 lithium AdvReac Unknown other Uncoded 11/29/23 21:03 Assessment & Plan Assessment & Plan (1) Schizoaffective disorder, bipolar type: Status: Acute Code(s): F25.0 - Schizoaffective disorder, bipolar type (2) Anxiety: Status: Chronic Code(s): F41.9 - Anxiety disorder, unspecified Plan HPI: Patient is a 28-year-old male with history of schizoaffective disorder, bipolar type, history of polysubstance abuse who presents via EMS for manic and delusional behaviors. Patient is a poor historian, lying in bed, not opening his eyes, and offering little information. Initially, patient was talking with the nurse but 1 minute later, as soon as handbook writer walked in to talk with patient, he kept his eyes closed and refused to respond at all to handbook writer. A little later on on re-approached, patient is willing to briefly engage. He says that he is doing good. On inquiry, he says I have no idea why he is here in the hospital; handbook writer shared that his parents felt he was unsafe, disorganized and destroying property which he denies, even though handbook writer mentioned that his mother showed pictures of damaging his apartment. Patient refuses to sign in and remains on a 12 B. Patient took risperidone (he initially spit it out but then took it) this morning and says he will keep taking it but refuses the long- acting injectable. he denies any AVH, SI or HI. Patient's mother, Patsy who is also patient's healthcare proxy reported collateral. She says he has not been taking medications consistently has been very disorganized, has destroyed the apartment that she and her own and pay for, including smashing several television sets, multiple cell phones, refrigerators and other appliances and items, taking off all the door in the apartments (she provided pictures); she says he has been disorganized, not showering at all attending to ADLs, acting confused, and doing strange things such as snorting salt... Patient yelling at her, demanding things such as groceries which she buys and which he then proceeds to throwing the trash... Formulation/clinical reasoning: Patient has well documented history of schizoaffective disorder, bipolar type. Patient had very similar presentation on his last admission January 2024, but responded well with p.o. Risperdal and then on long-acting Risperdal product Uzedy (also on Wellbutrin XL 150 mg), organized, attending to ADLs, in good behavioral and impulse control and even developed some limited insight, briefly acknowledging that he did have paranoid delusions and auditory hallucinations prior to taking medication... However, patient has a long history of medication non-adherence and decompensation which is again resulting in need for psychiatric hospitalization. On the unit, he is with odd behaviors and malodorous (patient did ask for and ostensibly took a shower but emerged remaining malodorous and with matted hair). Patient is currently taking a low dose of Risperdal (though intermittently refused); however this dose is inadequate, patient does not want medication adjustments and refuses long-acting inectable Risperdal which is essential to sustained function in the community; he has no insight at all and handbook writer is convinced that patient will stop taking medications (or take them inadequately) immediately if he were to discharge. Invoke HCP: Patient has a signed healthcare proxy on file. Patient is disorganized and unable to function in the community; he does not have capacity to make medical decisions for himself and so handbook writer will invoke this healthcare proxy. Hospital course: 07/19 Patient difficult with which to engage and denies all psychiatric symptoms. He says I want to get off medication... Metal Sprayer shares his family's concerns about his behaviors but patient tells handbook writer I was doing good at home... Patient talking to handbook writer holding his hand in front of his mouth. At 1 point patient stopped talking to handbook writer completely, keeping his eyes closed but then responded later. Patient does not want to stay in the hospital and Metal Sprayer informed patient of involuntary commitment and invoking healthcare proxy. Patient's mother present who gave more collateral. She says that after his last discharge, he refused to get long-acting injectable and would not take medication. In March he took a low dose of Risperdal for 2 days but then not again until a couple of weeks later. At that time he took Risperdal 2 mg b.i.d. for 10 days and she reports it was the best days ever... That patient was doing well. However he stopped medication and again became disorganized. She says that patient has destroyed the apartment and shows handbook writer multiple pictures of broken televisions, other furniture, flipping over the refrigerator... Patient opened all the drawers throughout the apartment for some reason leaving them open; took off all the anterior doors off the hinges; she says that he broke the furnace somehow and the apartment complex was without heat; now the upstairs Renter is now moving out because does not want to have to deal with the heat going off. She says he took his bed out and put it in the yd; whenever she buys him food he immediately deems it into the trash. She said over the past couple weeks patient has been increasingly agitated and aggressive, once posturing aggressively towards his father; patient angrily threatened his mom yelling leave this house or I'll push you again... , yelling in her face with spittle coming out of his mouth.. Mother says she is scared, felt threatened and left. She said she called the police who know the family; she reports that patient postured aggressively towards 1 of the police officers but because the officer knew him, told his partner to stand down and they thus brought him to the hospital 07/20 pt remains psychotic, talking to himself; patient is difficult with which to engage. Nursing observing patient cheeking Risperdal and spitting out the garbage. Metal Sprayer discussed taking Risperdal with patient who has some ambivalence and told handbook writer he would take it but then that he did not want it and needed something that would help [him] both sleep and drive... He then said he would take it even it increased dose of 2 mg b.i.d. -Patient remains with bizarre behaviors. Patient does not look at handbook writer when talking; during conversation he will intermittently stop talking in the middle of conversation, stare off, sometimes muttering to himself and then restart talking... Patient lining up sugar packets and cards on his bed in specific ways; in the milieu, handbook writer observed patient jumping on a chair and hopping around in the kitchen 07/21 Nursing continue to observe patient cheeking Risperdal than spitting it out. Remains difficult with which to engage and will sometimes not respond to handbook writer at all. Remains with odd, behaviors and internally preoccupied -switch to liquid Risperdal 07/22 Patient refused liquid Risperdal last night but took it this morning. Patient tells handbook writer he will keep taking the Risperdal, since he likes the taste of the liquid Risperdal. Patient remains with disorganized behaviors; patient laughing out loud. Metal Sprayer observed patient going into the kitchen, taking something out of the refrigerator, sitting down in a chair and waiting a few sec and then putting it back in the refrigerator; patient would then going to his room, run around his bed and then back into the kitchen to repeat the same behavior. 07/23 remains disorganized, internally pre-occupied. took risperdal last night and today 07/24 Patient remains with very odd behaviors. On approach, patient turns and quickly walks away; handbook writer catches up with patient and he is willing to talk but turns at an angle and looks away while talking. He says he is good and that he just wants some paper to draw. Today patient had white sticky substance covering the length of multiple pigtails in his hair; handbook writer asked about this and patient said it was tooth paste. Metal Sprayer asked what for and patient said I just woke up this way... He then walks away quickly. -has been taking liquid Risperdal; says he likes the limb and flavored 07/25 pt remains disorganized, psychotic. Explained to pt court tomorrow which he was surprised about (though has been informed). Pt asks to switch from risperdal to ADD medication; then asks to switch to happy medication. He likes the idea of restarting Wellbutrin. Patient stops talking to handbook writer and attends to internal stimuli, seemingly oblivious to writers presence...conversation never resumes. Instead, pt continues to draw smilie face's and hearts on a piece of paper over and over Impression: pt remains floridly psychotic with disorganized speech and behavior. Patient cannot distinguish reality from delusion. Pt is fully incapable of caring for himself in the community and would not be able to acquire food or mcc on his own; and on his own he would be vulnerable to predation. He has no insight at all into his psychiatric illness or his need for medication and is only taking Liquid Risperdal since he likes the taste of it. Were patient to discharge today, he would very soon cease taking medication. 07/26 c/o nasal congestion; covid/rsv ordered and negative Pt initially refused Risperdal last night but then took it later on. Pt sitting in room, in dark, drawing something that resembles an equation, he says it's something i might make later on Pt said he wanted to talk about discharge and handbook writer reminded him about court today and that the police judge would decide; he said he does not want to attend court due to anxiety Court civilly committed patient involuntarily to treatment with substituted judgment -will start with Uzedy 100mg; this will last for 1 month; anticipating it will take patient at least 1 month to stabilize; plan will be to give patient Uzedy 200mg prior to leaving which will give him a longer period of stability in the community 07/27: Active on unit. guarded. Pt responding with one word answers to questions. Patient reports feeling fine ; pt was informed of Uzedy injection ordered for today. Pt did not acknowledge T/W and proceeded to close eyes. Pt was encouraged to inform RN if he has any questions. 07/28 seems more withdrawn today-one word answers to nursing, questioning provider re dc- CTP 07/29 - better more engagable- talking getting up getting meals= needs adls- CTP 07/30 pt a little more organized in that has conversation for longer. He says he got the shot (ANDRE of risperdal) and is wondering when he can go home. He currently accepts that this can be discussed with him and parents but would like to see pt closer to his regular self. Pt says he is suicidal and can he get on the antidepressant wellbutrin. No plans or intentions, just thoughts but really wants to -start - wellbutrin -still no shower, and disheveled, internally pre-occupied and no insight -start Wellbutrin; pt stable enough continue po risperdal for couple days especially now starting wellbutrin; will soon dc 07/31 SI resolved. although some improvement patient remains disorganized and starts off saying at home he has nothing to do except for singing, dancing and having business ideas... Mom present Discussed mom's concern with Wellbutrin XL causing too much energy verses the SR. Pt however likes the long acting XL 150mg since it lasts all day long. Had the same conversation with mom last admission when patient then also waned 150mg and disagreed with this mom's perspective; that time as now, handbook writer, staff do not notice any negative effect. he felt that 100mg did not help his mood enough and did not last as long -Patient had moment of insight and said my tyoughts are too mixed up in my head where i'm not sure what's real anymore....is risperdaone the right medicine? then i'll stay on it...i get lost in this imaginary world -However moments later he said i don't think i have anything (any psych illness) and repeated he does not feel he 08/01Remains disorganized with behavior, internally preoccupied, odd, dancing around the unit; talking to himself at length. met with his mother and patient says he is fine with her being his healthcare proxy in making medical decisions. Patient denies all psychiatric illness and does not think he has a psychiatric problem or that he needs medications. Asks if he can go home today, temporarily accepting that he can not 08/02 Patient wanted Wellbutrin to be discontinued, saying it makes him anxious and that he feels better without it. Also that he likes Seroquel which was started for anxiety and says this is helping. Patient says he is fine asks for discharge but temporarily accept not possible. Remains internally preoccupied talking himself 08/03 Patient asks for Concerta which he says he was on as an adolescent, something to help him focus and to help his mood. Metal Sprayer explained what this medication is not currently possible however revisited the idea Wellbutrin. Patient wanted to be back on Wellbutrin but not the long-acting 1, instead the immediate release to which handbook writer agreed. Patient again asked for discharge home. Metal Sprayer explained why he is not ready with which patient is agreed. Metal Sprayer tried some reality testing, reminding patient that he destroyed the apartment he was living in; patient denied this. Metal Sprayer explained that his mother had numerous pictures about it and patient said he disagreed but that that is in the past. 08/04: Continue current plans and regimen 08/05: Continue current regimen and plans Impression: Patient remains without any insight at all. He is disorganized and can only remain appropriate for brief interactions. Patient where he would be discharged will not take medications, will not get next long-acting injectable and will remain psychotic, disorganized and unable to function on his own. 08/06 remains without insight; continue current treatment plan 08/07 Patient confused; he keeps asking for Wellbutrin to be discontinued and then to be restarted. He is asking for it to be restarted with the long-acting now. Patient remains briefly able to happen organized discussion but quickly becomes anxious, internally preoccupied. Patient can not seem to talk about psychotic symptoms and on handbook writer's inquiry, denies any history of psychotic symptoms including his bizarre and disorganized behavior at home resulting in significant damage to his apartment. -patient continues to ask for Concerta despite having had numerous conversations with handbook writer about this; it is handbook writer's opinion that patient is being directed by auditory hallucinations regarding Concerta and Wellbutrin 08/08 Patient approaches handbook writer to say that he does not think he has a psychiatric illness at all, that he has had no psychotic symptoms however and he just has anxiety. He says he does not think he needs Risperdal and that he will absolutely not take it after he is discharged. Metal Sprayer tries to share with him his behaviors when he is off this medication again referring to damaging his apartment however patient explains this by saying it was his 1st apartment, out in his own; then he says he is just a kid though handbook writer reminds him that he is 28 years old and that this is not normal behavior. Patient says he disagrees and reiterates that he does not think he needs Risperdal and that he will not be taking it on discharge. 08/09 he refused Wellbutrin; remains change his mind about medications throughout the day; internally preoccupied; confused Impression: Patient remains without any insight at all; he remains with psychotic symptoms, internally preoccupied, odd behaviors, talking to himself. Patient also has psychotic confusion, confused due to internal preoccupations and very likely AH, to the point where patient has nearly the same conversation with handbook writer every day and daily changes his mind about how he feels about very small medication changes. Patient remains with significant psychotic symptoms. Although he received long-acting Risperdal on 07/27, it is either that this dose is too low or that it has not yet reached its full therapeutic effect. Would like to add p.o. Risperdal however patient is not willing. Plan: Section 8/ patient involuntary committed with substituted judgment Healthcare proxy affirmed Q 15 minute checks Medications: Seroquel p.r.n. for anxiety +/-Wellbutrin based on pt; ER 150mg daily (pt request this instead of Wellbutrin IR 75 mg daily) Pending: Risperdal Uzedy 200 mg on 08/22/24 (on 07/27 received Risperdal Uzedy 100 mg) DC Risperdal (liquid) 2 mg b.i.d. will start up again if psychosis worsens -Prior to DC, after 30 days will follow-up with Risperdal Uzedy 200 mg Past med trials: Bradaylar: Did not seem to work Medications on Court-ordered substituted judgment: Risperdal up to 6 mg Uzedy up to 200 mg q.2 months Clozaril Zyprexa Paliperidone/Invega including Trinza Ziprasidone Depakote Patient educated on: diagnosis and medication risk/benefits Informed Consent: does not understand Reason for continued inpatient stay Substantial Risk for: inability to function Time Spent With Patient Time: Total time managing care of this patient today ____ minutes.
--- NOTE | 2024-08-10 23:22 | P.PNPSI_ITS ---
Subjective Subjective Date of Service: 08/10/24 Reason For Visit: Schizoaffective Disorder, bipolar type Interim History: Met with patient; discussed with team Patient talking about how he does not need Risperdal, does not think he has a psychiatric illness at all; will not be taking Risperdal post discharge; just wants Concerta. Patient not attending to ADLs; malodorous; internally preoccupied Mental Status Exam Mental Status Exam Narrative: Pt is alert and oriented; behavior is more cooperative, calm; still odd behaviors, talking to himself, laughing at inappropriate times; can only tolerate short interactions; patient is not in distress; dressed in casual attire, messy hair and disheveled, malodorous; mood is described as good eye contact improved but still looks away; Speech is normal volume and rate; some mild psychomotor agitation; thought process is more goal directed but concrete; Thought content is perseverative on discharge, minor medication changes; frequently asks about, Concerta; internally preoccupied; does not think he has a psychiatric illness; denies SI; no intent; no HI; Denies AVH however patient is consistently responding to internal stimuli. Patients insight and judgment impaired. Diagnostics Vital Signs (24Hr): Vital Signs - 24 hr 08/10/24 08:31 08/10/24 15:28 08/10/24 20:00 Temperature 97.6 F 98.3 F Pulse Rate 103 H 76 Respiratory Rate 16 Blood Pressure 120/62 116/78 109/54 L Pulse Oximetry 96 96 Oxygen Delivery Method Room Air Room Air BMI result Body Mass Index 28.7 Labs 07/17/24 14:49 07/26/24 16:18 Medications Medications Current Medications Acetaminophen (Acetaminophen 325 Mg Tablet) 650 mg PO Q6H PRN PRN Reason: Headache/Pain, Scale 1-10 Al Hydroxide/Mg Hydroxide (Magnesium Hydrox/Alum Hydrox 30 Ml Oral.Susp) 30 ml PO Q6H PRN PRN Reason: Heartburn/Nausea Bupropion HCl (Bupropion Hcl Xl 150 Mg Tab.Er.24h) 150 mg PO DAILY JESSICA Last Admin: 08/10/24 11:53 Dose: 150 mg Clonidine HCl (Clonidine Hcl 0.1 Mg Tablet) 0.1 mg PO Q4H PRN; Protocol PRN Reason: Anxiety Last Admin: 08/10/24 15:28 Dose: 0.1 mg Hydroxyzine HCl (Hydroxyzine Hcl 25 Mg Tablet) 25 mg PO Q6H PRN PRN Reason: mild anxiety/insomnia Last Admin: 08/10/24 13:52 Dose: 25 mg Magnesium Hydroxide (Milk Of Magnesia 30 Ml Oral.Susp) 30 ml PO DAILY PRN PRN Reason: Constipation Nicotine (Nicotine 21 Mg Patch.Td24) 21 mg TRANSDERMA DAILY PRN PRN Reason: smoking cessation Last Admin: 08/10/24 13:52 Dose: 21 mg Nicotine Polacrilex (Nicotine Polacrilex 2 Mg Gum) 4 mg BUCCAL Q2H PRN PRN Reason: Nicotine Cravings Last Admin: 08/10/24 13:53 Dose: 4 mg Quetiapine Fumarate (Quetiapine Fumarate 25 Mg Tablet) 25 mg PO TID PRN PRN Reason: mod to severe anxiety Last Admin: 08/10/24 13:52 Dose: 25 mg Sodium Chloride (Sodium Chloride 0.65 % Nasal 44 Ml Sprbtl) 1 spray NOSTRIL-B Q1H PRN PRN Reason: Congestion Trazodone HCl (Trazodone Hcl 50 Mg Tablet) 50 mg PO BEDTIME PRN PRN Reason: Insomnia Last Admin: 07/31/24 20:35 Dose: 50 mg Allergies Allergies Allergy/AdvReac Type Severity Reaction Status Date / Time strawberry Allergy Mild Itching Verified 07/17/24 14:35 cefazolin Allergy Unknown Itching Verified 07/17/24 14:35 sulfamethoxazole Allergy Unknown Itching Verified 07/17/24 14:35 [From Bactrim] trimethoprim [From Bactrim] Allergy Unknown Itching Verified 07/17/24 14:35 lorazepam [From Ativan] AdvReac Agitated Verified 07/17/24 14:35 lithium AdvReac Unknown other Uncoded 11/29/23 21:03 Assessment & Plan Assessment & Plan (1) Schizoaffective disorder, bipolar type: Status: Acute Code(s): F25.0 - Schizoaffective disorder, bipolar type (2) Anxiety: Status: Chronic Code(s): F41.9 - Anxiety disorder, unspecified Plan HPI: Patient is a 28-year-old male with history of schizoaffective disorder, bipolar type, history of polysubstance abuse who presents via EMS for manic and delusional behaviors. Patient is a poor historian, lying in bed, not opening his eyes, and offering little information. Initially, patient was talking with the nurse but 1 minute later, as soon as technical writer walked in to talk with patient, he kept his eyes closed and refused to respond at all to technical writer. A little later on on re-approached, patient is willing to briefly engage. He says that he is doing good. On inquiry, he says I have no idea why he is here in the hospital; technical writer shared that his parents felt he was unsafe, disorganized and destroying property which he denies, even though technical writer mentioned that his mother showed pictures of damaging his apartment. Patient refuses to sign in and remains on a 12 B. Patient took risperidone (he initially spit it out but then took it) this morning and says he will keep taking it but refuses the long- acting injectable. he denies any AVH, SI or HI. Patient's mother, Patsy who is also patient's healthcare proxy reported collateral. She says he has not been taking medications consistently has been very disorganized, has destroyed the apartment that she and her own and pay for, including smashing several television sets, multiple cell phones, refrigerators and other appliances and items, taking off all the door in the apartments (she provided pictures); she says he has been disorganized, not showering at all attending to ADLs, acting confused, and doing strange things such as snorting salt... Patient yelling at her, demanding things such as groceries which she buys and which he then proceeds to throwing the trash... Formulation/clinical reasoning: Patient has well documented history of schizoaffective disorder, bipolar type. Patient had very similar presentation on his last admission January 2024, but responded well with p.o. Risperdal and then on long-acting Risperdal product Uzedy (also on Wellbutrin XL 150 mg), organized, attending to ADLs, in good behavioral and impulse control and even developed some limited insight, briefly acknowledging that he did have paranoid delusions and auditory hallucinations prior to taking medication... However, patient has a long history of medication non-adherence and decompensation which is again resulting in need for psychiatric hospitalization. On the unit, he is with odd behaviors and malodorous (patient did ask for and ostensibly took a shower but emerged remaining malodorous and with matted hair). Patient is currently taking a low dose of Risperdal (though intermittently refused); however this dose is inadequate, patient does not want medication adjustments and refuses long-acting inectable Risperdal which is essential to sustained function in the community; he has no insight at all and technical writer is convinced that patient will stop taking medications (or take them inadequately) immediately if he were to discharge. Invoke HCP: Patient has a signed healthcare proxy on file. Patient is disorganized and unable to function in the community; he does not have capacity to make medical decisions for himself and so technical writer will invoke this healthcare proxy. Hospital course: 07/19 Patient difficult with which to engage and denies all psychiatric symptoms. He says I want to get off medication... Knitting Teacher shares his family's concerns about his behaviors but patient tells technical writer I was doing good at home... Patient talking to technical writer holding his hand in front of his mouth. At 1 point patient stopped talking to technical writer completely, keeping his eyes closed but then responded later. Patient does not want to stay in the hospital and Knitting Teacher informed patient of involuntary commitment and invoking healthcare proxy. Patient's mother present who gave more collateral. She says that after his last discharge, he refused to get long-acting injectable and would not take medication. In March he took a low dose of Risperdal for 2 days but then not again until a couple of weeks later. At that time he took Risperdal 2 mg b.i.d. for 10 days and she reports it was the best days ever... That patient was doing well. However he stopped medication and again became disorganized. She says that patient has destroyed the apartment and shows technical writer multiple pictures of broken televisions, other furniture, flipping over the refrigerator... Patient opened all the drawers throughout the apartment for some reason leaving them open; took off all the anterior doors off the hinges; she says that he broke the furnace somehow and the apartment complex was without heat; now the upstairs Renter is now moving out because does not want to have to deal with the heat going off. She says he took his bed out and put it in the yd; whenever she buys him food he immediately deems it into the trash. She said over the past couple weeks patient has been increasingly agitated and aggressive, once posturing aggressively towards his father; patient angrily threatened his mom yelling leave this house or I'll push you again... , yelling in her face with spittle coming out of his mouth.. Mother says she is scared, felt threatened and left. She said she called the police who know the family; she reports that patient postured aggressively towards 1 of the police officers but because the officer knew him, told his partner to stand down and they thus brought him to the hospital 07/20 pt remains psychotic, talking to himself; patient is difficult with which to engage. Nursing observing patient cheeking Risperdal and spitting out the garbage. Knitting Teacher discussed taking Risperdal with patient who has some ambivalence and told technical writer he would take it but then that he did not want it and needed something that would help [him] both sleep and drive... He then said he would take it even it increased dose of 2 mg b.i.d. -Patient remains with bizarre behaviors. Patient does not look at technical writer when talking; during conversation he will intermittently stop talking in the middle of conversation, stare off, sometimes muttering to himself and then restart talking... Patient lining up sugar packets and cards on his bed in specific ways; in the milieu, technical writer observed patient jumping on a chair and hopping around in the kitchen 07/21 Nursing continue to observe patient cheeking Risperdal than spitting it out. Remains difficult with which to engage and will sometimes not respond to technical writer at all. Remains with odd, behaviors and internally preoccupied -switch to liquid Risperdal 07/22 Patient refused liquid Risperdal last night but took it this morning. Patient tells technical writer he will keep taking the Risperdal, since he likes the taste of the liquid Risperdal. Patient remains with disorganized behaviors; patient laughing out loud. Knitting Teacher observed patient going into the kitchen, taking something out of the refrigerator, sitting down in a chair and waiting a few sec and then putting it back in the refrigerator; patient would then going to his room, run around his bed and then back into the kitchen to repeat the same behavior. 07/23 remains disorganized, internally pre-occupied. took risperdal last night and today 07/24 Patient remains with very odd behaviors. On approach, patient turns and quickly walks away; technical writer catches up with patient and he is willing to talk but turns at an angle and looks away while talking. He says he is good and that he just wants some paper to draw. Today patient had white sticky substance covering the length of multiple pigtails in his hair; technical writer asked about this and patient said it was tooth paste. Knitting Teacher asked what for and patient said I just woke up this way... He then walks away quickly. -has been taking liquid Risperdal; says he likes the limb and flavored 07/25 pt remains disorganized, psychotic. Explained to pt court tomorrow which he was surprised about (though has been informed). Pt asks to switch from risperdal to ADD medication; then asks to switch to happy medication. He likes the idea of restarting Wellbutrin. Patient stops talking to technical writer and attends to internal stimuli, seemingly oblivious to writers presence...conversation never resumes. Instead, pt continues to draw smilie face's and hearts on a piece of paper over and over Impression: pt remains floridly psychotic with disorganized speech and behavior. Patient cannot distinguish reality from delusion. Pt is fully incapable of caring for himself in the community and would not be able to acquire food or custodial on his own; and on his own he would be vulnerable to predation. He has no insight at all into his psychiatric illness or his need for medication and is only taking Liquid Risperdal since he likes the taste of it. Were patient to discharge today, he would very soon cease taking medication. 07/26 c/o nasal congestion; covid/rsv ordered and negative Pt initially refused Risperdal last night but then took it later on. Pt sitting in room, in dark, drawing something that resembles an equation, he says it's something i might make later on Pt said he wanted to talk about discharge and technical writer reminded him about court today and that the whale trainer would decide; he said he does not want to attend court due to anxiety Court civilly committed patient involuntarily to treatment with substituted judgment -will start with Uzedy 100mg; this will last for 1 month; anticipating it will take patient at least 1 month to stabilize; plan will be to give patient Uzedy 200mg prior to leaving which will give him a longer period of stability in the community 07/27: Active on unit. guarded. Pt responding with one word answers to questions. Patient reports feeling fine ; pt was informed of Uzedy injection ordered for today. Pt did not acknowledge T/W and proceeded to close eyes. Pt was encouraged to inform RN if he has any questions. 07/28 seems more withdrawn today-one word answers to nursing, questioning provider re dc- CTP 07/29 - better more engagable- talking getting up getting meals= needs adls- CTP 07/30 pt a little more organized in that has conversation for longer. He says he got the shot (ANDRE of risperdal) and is wondering when he can go home. He currently accepts that this can be discussed with him and parents but would like to see pt closer to his regular self. Pt says he is suicidal and can he get on the antidepressant wellbutrin. No plans or intentions, just thoughts but really wants to -start - wellbutrin -still no shower, and disheveled, internally pre-occupied and no insight -start Wellbutrin; pt stable enough continue po risperdal for couple days especially now starting wellbutrin; will soon dc 07/31 SI resolved. although some improvement patient remains disorganized and starts off saying at home he has nothing to do except for singing, dancing and having business ideas... Mom present Discussed mom's concern with Wellbutrin XL causing too much energy verses the SR. Pt however likes the long acting XL 150mg since it lasts all day long. Had the same conversation with mom last admission when patient then also waned 150mg and disagreed with this mom's perspective; that time as now, technical writer, staff do not notice any negative effect. he felt that 100mg did not help his mood enough and did not last as long -Patient had moment of insight and said my tyoughts are too mixed up in my head where i'm not sure what's real anymore....is risperdaone the right medicine? then i'll stay on it...i get lost in this imaginary world -However moments later he said i don't think i have anything (any psych illness) and repeated he does not feel he 08/01Remains disorganized with behavior, internally preoccupied, odd, dancing around the unit; talking to himself at length. met with his mother and patient says he is fine with her being his healthcare proxy in making medical decisions. Patient denies all psychiatric illness and does not think he has a psychiatric problem or that he needs medications. Asks if he can go home today, temporarily accepting that he can not 08/02 Patient wanted Wellbutrin to be discontinued, saying it makes him anxious and that he feels better without it. Also that he likes Seroquel which was started for anxiety and says this is helping. Patient says he is fine asks for discharge but temporarily accept not possible. Remains internally preoccupied talking himself 08/03 Patient asks for Concerta which he says he was on as an adolescent, something to help him focus and to help his mood. Knitting Teacher explained what this medication is not currently possible however revisited the idea Wellbutrin. Patient wanted to be back on Wellbutrin but not the long-acting 1, instead the immediate release to which technical writer agreed. Patient again asked for discharge home. Knitting Teacher explained why he is not ready with which patient is agreed. Knitting Teacher tried some reality testing, reminding patient that he destroyed the apartment he was living in; patient denied this. Knitting Teacher explained that his mother had numerous pictures about it and patient said he disagreed but that that is in the past. 08/04: Continue current plans and regimen 08/05: Continue current regimen and plans Impression: Patient remains without any insight at all. He is disorganized and can only remain appropriate for brief interactions. Patient where he would be discharged will not take medications, will not get next long-acting injectable and will remain psychotic, disorganized and unable to function on his own. 08/06 remains without insight; continue current treatment plan 08/07 Patient confused; he keeps asking for Wellbutrin to be discontinued and then to be restarted. He is asking for it to be restarted with the long-acting now. Patient remains briefly able to happen organized discussion but quickly becomes anxious, internally preoccupied. Patient can not seem to talk about psychotic symptoms and on technical writer's inquiry, denies any history of psychotic symptoms including his bizarre and disorganized behavior at home resulting in significant damage to his apartment. -patient continues to ask for Concerta despite having had numerous conversations with technical writer about this; it is technical writer's opinion that patient is being directed by auditory hallucinations regarding Concerta and Wellbutrin 08/08 Patient approaches technical writer to say that he does not think he has a psychiatric illness at all, that he has had no psychotic symptoms however and he just has anxiety. He says he does not think he needs Risperdal and that he will absolutely not take it after he is discharged. Knitting Teacher tries to share with him his behaviors when he is off this medication again referring to damaging his apartment however patient explains this by saying it was his 1st apartment, out in his own; then he says he is just a kid though technical writer reminds him that he is 28 years old and that this is not normal behavior. Patient says he disagrees and reiterates that he does not think he needs Risperdal and that he will not be taking it on discharge. 08/09 he refused Wellbutrin; remains change his mind about medications throughout the day; internally preoccupied; confused 08/10 Patient talking about how he does not need Risperdal, does not think he has a psychiatric illness at all; will not be taking Risperdal post discharge; just wants Concerta. Patient not attending to ADLs; malodorous; internally preoccupied Impression: Patient remains without any insight at all; he remains with psychotic symptoms, internally preoccupied, odd behaviors, talking to himself. Patient also has psychotic confusion, confused due to internal preoccupations and very likely AH, to the point where patient has nearly the same conversation with technical writer every day and daily changes his mind about how he feels about very small medication changes. Patient remains with significant psychotic symptoms. Although he received long-acting Risperdal on 07/27, it is either that this dose is too low or that it has not yet reached its full therapeutic effect. Would like to add p.o. Risperdal however patient is not willing. Plan: Section 8/8a patient involuntary committed with substituted judgment Healthcare proxy affirmed Q 15 minute checks Medications: Seroquel p.r.n. for anxiety +/-Wellbutrin based on pt; ER 150mg daily (pt request this instead of Wellbutrin IR 75 mg daily) Pending: Risperdal Uzedy 200 mg on 08/22/24 (on 07/27 received Risperdal Uzedy 100 mg) DC Risperdal (liquid) 2 mg b.i.d. will start up again if psychosis worsens -Prior to DC, after 30 days will follow-up with Risperdal Uzedy 200 mg Past med trials: Vraylar: Did not seem to work Medications on Court-ordered substituted judgment: Risperdal up to 6 mg Uzedy up to 200 mg q.2 months Clozaril Zyprexa Paliperidone/Invega including Trinza Ziprasidone Depakote Patient educated on: diagnosis and medication risk/benefits Informed Consent: does not understand Reason for continued inpatient stay Substantial Risk for: inability to function Time Spent With Patient Time: Total time managing care of this patient today ____ minutes.
[2024-08-11] MEDS: buPROPion HCl XL 150 MG TAB.ER.24H PO (08:34)
[2024-08-11] MEDS: hydrOXYzine HCL 25 MG TABLET PO ×2 (08:34→14:37)
[2024-08-11] MEDS: cloNIDine HCL 0.1 MG TABLET PO ×2 (08:35→12:24)
[2024-08-11] MEDS: QUEtiapine Fumarate 25 MG TABLET PO ×2 (08:35→14:38)
[2024-08-11 08:36] VITALS: BP 95/55; PULSE 61; RESP 18; TEMP 36.4; O2SAT 97
--- NOTE | 2024-08-11 09:08 | P.PNPSI_ITS ---
Subjective Subjective Date of Service: 08/11/24 Reason For Visit: Schizoaffective Disorder, bipolar type Interim History: met with patient; discussed with team; reviewed chart Today for the 1st time patient acknowledged that he had auditory hallucinations and that he was feeling scared; he himself asked for risperidone p.o.. Patient would not discuss further. Patient later refused risperidone p.o. saying that he wants something for anger, not anxiety... Mental Status Exam Mental Status Exam Narrative: Pt is alert and oriented; behavior is more cooperative, calm; still odd behaviors, talking to himself, laughing at inappropriate times; can only tolerate short interactions; patient is not in distress; dressed in casual attire, messy hair and disheveled, malodorous; mood is described as angry and affect sullen; eye contact improved but still looks away; Speech is normal volume and rate; some mild psychomotor agitation; thought process is more goal directed but concrete; Thought content is perseverative on discharge, minor medication changes; frequently asks about, Concerta; internally preoccupied; does not think he has a psychiatric illness; denies SI; no intent; no HI; Denies AVH however patient is consistently responding to internal stimuli. Patients insight and judgment impaired. Diagnostics Vital Signs (24Hr): Vital Signs - 24 hr 08/10/24 15:28 08/10/24 20:00 08/11/24 08:36 Temperature 98.3 F 97.5 F Pulse Rate 76 61 Respiratory Rate 18 Blood Pressure 116/78 109/54 L 95/55 L Pulse Oximetry 96 97 Oxygen Delivery Method Room Air Room Air BMI result Body Mass Index 28.7 Labs 07/17/24 14:49 07/26/24 16:18 Medications Medications Current Medications Acetaminophen (Acetaminophen 325 Mg Tablet) 650 mg PO Q6H PRN PRN Reason: Headache/Pain, Scale 1-10 Al Hydroxide/Mg Hydroxide (Magnesium Hydrox/Alum Hydrox 30 Ml Oral.Susp) 30 ml PO Q6H PRN PRN Reason: Heartburn/Nausea Bupropion HCl (Bupropion Hcl Xl 150 Mg Tab.Er.24h) 150 mg PO DAILY JESSICA Last Admin: 08/11/24 08:34 Dose: 150 mg Clonidine HCl (Clonidine Hcl 0.1 Mg Tablet) 0.1 mg PO Q4H PRN; Protocol PRN Reason: Anxiety Last Admin: 08/11/24 08:35 Dose: 0.1 mg Hydroxyzine HCl (Hydroxyzine Hcl 25 Mg Tablet) 25 mg PO Q6H PRN PRN Reason: mild anxiety/insomnia Last Admin: 08/11/24 08:34 Dose: 25 mg Magnesium Hydroxide (Milk Of Magnesia 30 Ml Oral.Susp) 30 ml PO DAILY PRN PRN Reason: Constipation Nicotine (Nicotine 21 Mg Patch.Td24) 21 mg TRANSDERMA DAILY PRN PRN Reason: smoking cessation Last Admin: 08/10/24 13:52 Dose: 21 mg Nicotine Polacrilex (Nicotine Polacrilex 2 Mg Gum) 4 mg BUCCAL Q2H PRN PRN Reason: Nicotine Cravings Last Admin: 08/10/24 13:53 Dose: 4 mg Quetiapine Fumarate (Quetiapine Fumarate 25 Mg Tablet) 25 mg PO TID PRN PRN Reason: mod to severe anxiety Last Admin: 08/11/24 08:35 Dose: 25 mg Sodium Chloride (Sodium Chloride 0.65 % Nasal 44 Ml Sprbtl) 1 spray NOSTRIL-B Q1H PRN PRN Reason: Congestion Trazodone HCl (Trazodone Hcl 50 Mg Tablet) 50 mg PO BEDTIME PRN PRN Reason: Insomnia Last Admin: 07/31/24 20:35 Dose: 50 mg Allergies Allergies Allergy/AdvReac Type Severity Reaction Status Date / Time strawberry Allergy Mild Itching Verified 07/17/24 14:35 cefazolin Allergy Unknown Itching Verified 07/17/24 14:35 sulfamethoxazole Allergy Unknown Itching Verified 07/17/24 14:35 [From Bactrim] trimethoprim [From Bactrim] Allergy Unknown Itching Verified 07/17/24 14:35 lorazepam [From Ativan] AdvReac Agitated Verified 07/17/24 14:35 lithium AdvReac Unknown other Uncoded 11/29/23 21:03 Assessment & Plan Assessment & Plan (1) Schizoaffective disorder, bipolar type: Status: Acute Code(s): F25.0 - Schizoaffective disorder, bipolar type (2) Anxiety: Status: Chronic Code(s): F41.9 - Anxiety disorder, unspecified Plan HPI: Patient is a 28-year-old male with history of schizoaffective disorder, bipolar type, history of polysubstance abuse who presents via EMS for manic and delusional behaviors. Patient is a poor historian, lying in bed, not opening his eyes, and offering little information. Initially, patient was talking with the nurse but 1 minute later, as soon as scientific technical writer walked in to talk with patient, he kept his eyes closed and refused to respond at all to scientific technical writer. A little later on on re-approached, patient is willing to briefly engage. He says that he is doing good. On inquiry, he says I have no idea why he is here in the hospital; scientific technical writer shared that his parents felt he was unsafe, disorganized and destroying property which he denies, even though scientific technical writer mentioned that his mother showed pictures of damaging his apartment. Patient refuses to sign in and remains on a 12 B. Patient took risperidone (he initially spit it out but then took it) this morning and says he will keep taking it but refuses the long- acting injectable. he denies any AVH, SI or HI. Patient's mother, Patsy who is also patient's healthcare proxy reported collateral. She says he has not been taking medications consistently has been very disorganized, has destroyed the apartment that she and her own and pay for, including smashing several television sets, multiple cell phones, refrigerators and other appliances and items, taking off all the door in the apartments (she provided pictures); she says he has been disorganized, not showering at all attending to ADLs, acting confused, and doing strange things such as snorting salt... Patient yelling at her, demanding things such as groceries which she buys and which he then proceeds to throwing the trash... Formulation/clinical reasoning: Patient has well documented history of schizoaffective disorder, bipolar type. Patient had very similar presentation on his last admission January 2024, but responded well with p.o. Risperdal and then on long-acting Risperdal product Uzedy (also on Wellbutrin XL 150 mg), organized, attending to ADLs, in good behavioral and impulse control and even developed some limited insight, briefly acknowledging that he did have paranoid delusions and auditory hallucinations prior to taking medication... However, patient has a long history of medication non-adherence and decompensation which is again resulting in need for psychiatric hospitalization. On the unit, he is with odd behaviors and malodorous (patient did ask for and ostensibly took a shower but emerged remaining malodorous and with matted hair). Patient is currently taking a low dose of Risperdal (though intermittently refused); however this dose is inadequate, patient does not want medication adjustments and refuses long-acting inectable Risperdal which is essential to sustained function in the community; he has no insight at all and scientific technical writer is convinced that patient will stop taking medications (or take them inadequately) immediately if he were to discharge. Invoke HCP: Patient has a signed healthcare proxy on file. Patient is disorganized and unable to function in the community; he does not have capacity to make medical decisions for himself and so scientific technical writer will invoke this healthcare proxy. Hospital course: 07/19 Patient difficult with which to engage and denies all psychiatric symptoms. He says I want to get off medication... Baffle Mounter shares his family's concerns about his behaviors but patient tells scientific technical writer I was doing good at home... Patient talking to scientific technical writer holding his hand in front of his mouth. At 1 point patient stopped talking to scientific technical writer completely, keeping his eyes closed but then responded later. Patient does not want to stay in the hospital and Baffle Mounter informed patient of involuntary commitment and invoking healthcare proxy. Patient's mother present who gave more collateral. She says that after his last discharge, he refused to get long-acting injectable and would not take medication. In March he took a low dose of Risperdal for 2 days but then not again until a couple of weeks later. At that time he took Risperdal 2 mg b.i.d. for 10 days and she reports it was the best days ever... That patient was doing well. However he stopped medication and again became disorganized. She says that patient has destroyed the apartment and shows scientific technical writer multiple pictures of broken televisions, other furniture, flipping over the refrigerator... Patient opened all the drawers throughout the apartment for some reason leaving them open; took off all the anterior doors off the hinges; she says that he broke the furnace somehow and the apartment complex was without heat; now the upstairs Renter is now moving out because does not want to have to deal with the heat going off. She says he took his bed out and put it in the yd; whenever she buys him food he immediately deems it into the trash. She said over the past couple weeks patient has been increasingly agitated and aggressive, once posturing aggressively towards his father; patient angrily threatened his mom yelling leave this house or I'll push you again... , yelling in her face with spittle coming out of his mouth.. Mother says she is scared, felt threatened and left. She said she called the police who know the family; she reports that patient postured aggressively towards 1 of the police officers but because the officer knew him, told his partner to stand down and they thus brought him to the hospital 07/20 pt remains psychotic, talking to himself; patient is difficult with which to engage. Nursing observing patient cheeking Risperdal and spitting out the garbage. Baffle Mounter discussed taking Risperdal with patient who has some ambivalence and told scientific technical writer he would take it but then that he did not want it and needed something that would help [him] both sleep and drive... He then said he would take it even it increased dose of 2 mg b.i.d. -Patient remains with bizarre behaviors. Patient does not look at scientific technical writer when talking; during conversation he will intermittently stop talking in the middle of conversation, stare off, sometimes muttering to himself and then restart talking... Patient lining up sugar packets and cards on his bed in specific ways; in the milieu, scientific technical writer observed patient jumping on a chair and hopping around in the kitchen 07/21 Nursing continue to observe patient cheeking Risperdal than spitting it out. Remains difficult with which to engage and will sometimes not respond to scientific technical writer at all. Remains with odd, behaviors and internally preoccupied -switch to liquid Risperdal 07/22 Patient refused liquid Risperdal last night but took it this morning. Patient tells scientific technical writer he will keep taking the Risperdal, since he likes the taste of the liquid Risperdal. Patient remains with disorganized behaviors; patient laughing out loud. Baffle Mounter observed patient going into the kitchen, taking something out of the refrigerator, sitting down in a chair and waiting a few sec and then putting it back in the refrigerator; patient would then going to his room, run around his bed and then back into the kitchen to repeat the same behavior. 07/23 remains disorganized, internally pre-occupied. took risperdal last night and today 07/24 Patient remains with very odd behaviors. On approach, patient turns and quickly walks away; scientific technical writer catches up with patient and he is willing to talk but turns at an angle and looks away while talking. He says he is good and that he just wants some paper to draw. Today patient had white sticky substance covering the length of multiple pigtails in his hair; scientific technical writer asked about this and patient said it was tooth paste. Baffle Mounter asked what for and patient said I just woke up this way... He then walks away quickly. -has been taking liquid Risperdal; says he likes the limb and flavored 07/25 pt remains disorganized, psychotic. Explained to pt court tomorrow which he was surprised about (though has been informed). Pt asks to switch from risperdal to ADD medication; then asks to switch to happy medication. He likes the idea of restarting Wellbutrin. Patient stops talking to scientific technical writer and attends to internal stimuli, seemingly oblivious to writers presence...conversation never resumes. Instead, pt continues to draw smilie face's and hearts on a piece of paper over and over Impression: pt remains floridly psychotic with disorganized speech and behavior. Patient cannot distinguish reality from delusion. Pt is fully incapable of caring for himself in the community and would not be able to acquire food or nursing home on his own; and on his own he would be vulnerable to predation. He has no insight at all into his psychiatric illness or his need for medication and is only taking Liquid Risperdal since he likes the taste of it. Were patient to discharge today, he would very soon cease taking medication. 07/26 c/o nasal congestion; covid/rsv ordered and negative Pt initially refused Risperdal last night but then took it later on. Pt sitting in room, in dark, drawing something that resembles an equation, he says it's something i might make later on Pt said he wanted to talk about discharge and scientific technical writer reminded him about court today and that the criminal judge would decide; he said he does not want to attend court due to anxiety Court civilly committed patient involuntarily to treatment with substituted judgment -will start with Uzedy 100mg; this will last for 1 month; anticipating it will take patient at least 1 month to stabilize; plan will be to give patient Uzedy 200mg prior to leaving which will give him a longer period of stability in the community 07/27: Active on unit. guarded. Pt responding with one word answers to questions. Patient reports feeling fine ; pt was informed of Uzedy injection ordered for today. Pt did not acknowledge T/W and proceeded to close eyes. Pt was encouraged to inform RN if he has any questions. 07/28 seems more withdrawn today-one word answers to nursing, questioning provider re dc- CTP 07/29 - better more engagable- talking getting up getting meals= needs adls- CTP 07/30 pt a little more organized in that has conversation for longer. He says he got the shot (ANDRE of risperdal) and is wondering when he can go home. He currently accepts that this can be discussed with him and parents but would like to see pt closer to his regular self. Pt says he is suicidal and can he get on the antidepressant wellbutrin. No plans or intentions, just thoughts but really wants to -start - wellbutrin -still no shower, and disheveled, internally pre-occupied and no insight -start Wellbutrin; pt stable enough continue po risperdal for couple days especially now starting wellbutrin; will soon dc 07/31 SI resolved. although some improvement patient remains disorganized and starts off saying at home he has nothing to do except for singing, dancing and having business ideas... Mom present Discussed mom's concern with Wellbutrin XL causing too much energy verses the SR. Pt however likes the long acting XL 150mg since it lasts all day long. Had the same conversation with mom last admission when patient then also waned 150mg and disagreed with this mom's perspective; that time as now, scientific technical writer, staff do not notice any negative effect. he felt that 100mg did not help his mood enough and did not last as long -Patient had moment of insight and said my tyoughts are too mixed up in my head where i'm not sure what's real anymore....is risperdaone the right medicine? then i'll stay on it...i get lost in this imaginary world -However moments later he said i don't think i have anything (any psych illness) and repeated he does not feel he 08/01Remains disorganized with behavior, internally preoccupied, odd, dancing around the unit; talking to himself at length. met with his mother and patient says he is fine with her being his healthcare proxy in making medical decisions. Patient denies all psychiatric illness and does not think he has a psychiatric problem or that he needs medications. Asks if he can go home today, temporarily accepting that he can not 08/02 Patient wanted Wellbutrin to be discontinued, saying it makes him anxious and that he feels better without it. Also that he likes Seroquel which was started for anxiety and says this is helping. Patient says he is fine asks for discharge but temporarily accept not possible. Remains internally preoccupied talking himself 08/03 Patient asks for Concerta which he says he was on as an adolescent, something to help him focus and to help his mood. Baffle Mounter explained what this medication is not currently possible however revisited the idea Wellbutrin. Patient wanted to be back on Wellbutrin but not the long-acting 1, instead the immediate release to which scientific technical writer agreed. Patient again asked for discharge home. Baffle Mounter explained why he is not ready with which patient is agreed. Baffle Mounter tried some reality testing, reminding patient that he destroyed the apartment he was living in; patient denied this. Baffle Mounter explained that his mother had numerous pictures about it and patient said he disagreed but that that is in the past. 08/04: Continue current plans and regimen 08/05: Continue current regimen and plans Impression: Patient remains without any insight at all. He is disorganized and can only remain appropriate for brief interactions. Patient where he would be discharged will not take medications, will not get next long-acting injectable and will remain psychotic, disorganized and unable to function on his own. 08/06 remains without insight; continue current treatment plan 08/07 Patient confused; he keeps asking for Wellbutrin to be discontinued and then to be restarted. He is asking for it to be restarted with the long-acting now. Patient remains briefly able to happen organized discussion but quickly becomes anxious, internally preoccupied. Patient can not seem to talk about psychotic symptoms and on scientific technical writer's inquiry, denies any history of psychotic symptoms including his bizarre and disorganized behavior at home resulting in significant damage to his apartment. -patient continues to ask for Concerta despite having had numerous conversations with scientific technical writer about this; it is scientific technical writer's opinion that patient is being directed by auditory hallucinations regarding Concerta and Wellbutrin 08/08 Patient approaches scientific technical writer to say that he does not think he has a psychiatric illness at all, that he has had no psychotic symptoms however and he just has anxiety. He says he does not think he needs Risperdal and that he will absolutely not take it after he is discharged. Baffle Mounter tries to share with him his behaviors when he is off this medication again referring to damaging his apartment however patient explains this by saying it was his 1st apartment, out in his own; then he says he is just a kid though scientific technical writer reminds him that he is 28 years old and that this is not normal behavior. Patient says he disagrees and reiterates that he does not think he needs Risperdal and that he will not be taking it on discharge. 08/09 he refused Wellbutrin; remains change his mind about medications throughout the day; internally preoccupied; confused 08/10 Today for the 1st time patient acknowledged that he had auditory hallucinations and that he was feeling scared; he himself asked for risperidone p.o.. Patient would not discuss further. Patient later refused risperidone p.o. saying that he wants something for anger, not anxiety... Impression: Patient remains without any insight at all; he remains with psychotic symptoms, internally preoccupied, odd behaviors, talking to himself. Patient also has psychotic confusion, confused due to internal preoccupations and very likely AH, to the point where patient has nearly the same conversation with scientific technical writer every day and daily changes his mind about how he feels about very small medication changes. Patient remains with significant psychotic symptoms. Although he received long-acting Risperdal on 07/27, it is either that this dose is too low or that it has not yet reached its full therapeutic effect. Patient needs Risperdal p.o.. Will need to review to see if Risperdal Uzedy dose can be increased Plan: Section 8/ patient involuntary committed with substituted judgment Healthcare proxy affirmed Q 15 minute checks Medications: Order risperidone p.r.n. Seroquel p.r.n. for anxiety +/-Wellbutrin based on pt; ER 150mg daily (pt request this instead of Wellbutrin IR 75 mg daily) Pending: Risperdal Uzedy 200 mg on 08/22/24 (on 07/27 received Risperdal Uzedy 100 mg) DC Risperdal (liquid) 2 mg b.i.d. will start up again if psychosis worsens -Prior to DC, after 30 days will follow-up with Risperdal Uzedy 200 mg Past med trials: Vraylar: Did not seem to work Medications on Court-ordered substituted judgment: Risperdal up to 6 mg Uzedy up to 200 mg q.2 months Clozaril Zyprexa Paliperidone/Invega including Trinza Ziprasidone Depakote Patient educated on: diagnosis and medication risk/benefits Informed Consent: does not understand and further education needed Reason for continued inpatient stay Substantial Risk for: inability to function Time Spent With Patient Time: Total time managing care of this patient today ____ minutes.
[2024-08-11 12:24] VITALS: BP 124/69
[2024-08-12 08:00] VITALS: RESP 16
[2024-08-12] MEDS: buPROPion HCl XL 150 MG TAB.ER.24H PO (08:40)
[2024-08-12] MEDS: cloNIDine HCL 0.1 MG TABLET PO (09:04)
[2024-08-12] MEDS: Nicotine 21 MG PATCH.TD24 TRANSDERMA (09:05)
[2024-08-12] MEDS: Nicotine Polacrilex 2 MG GUM 4 MG BUCCAL (09:05)
[2024-08-12] MEDS: QUEtiapine Fumarate 25 MG TABLET PO (09:06)
[2024-08-12] MEDS: hydrOXYzine HCL 25 MG TABLET PO (09:06)
[2024-08-12] MEDS: risperiDONE 0.5 MG TABLET PO ×2 (09:15→14:06)
[2024-08-12] MEDS: risperiDONE Oral Sol 1 MG/ML SOLUTION PO ×2 (15:23→21:47)
[2024-08-12] MEDS: risperiDONE 1 MG TABLET PO (17:22)
[2024-08-12 20:00] VITALS: BP 143/82; PULSE 74; RESP 16; TEMP 36.6; O2SAT 97
[2024-08-13] MEDS: risperiDONE Oral Sol 1 MG/ML SOLUTION PO ×2 (08:28→20:27)
[2024-08-13] MEDS: Nicotine Polacrilex 2 MG GUM 4 MG BUCCAL ×2 (09:38→16:24)
[2024-08-13] MEDS: buPROPion HCl XL 150 MG TAB.ER.24H PO ×2 (09:42→15:01)
[2024-08-13] MEDS: risperiDONE 1 MG TABLET PO ×2 (10:02→16:16)
--- NOTE | 2024-08-13 12:07 | P.PNPSI_ITS ---
Subjective Subjective Date of Service: 08/12/24 Reason For Visit: Schizoaffective Disorder, bipolar type Interim History: Late entry note for patient seen 08/12; discussed with team Patient continues to be paranoid and anxious with psychotic confusion. Patient himself expressing as much and says that the Risperdal shot is not a high enough dose and should be increased when he gets it next. Patient has been asking for risperidone p.o. and is now asking for it to be scheduled with which insurance underwriter sales agrees [employer] agrees that current dose of long-acting injectable is either not high enough or has not become effective enough in patient requires additional risperidone to stabilize Mental Status Exam Mental Status Exam Narrative: Pt is alert and oriented; behavior is more cooperative, calm; still odd behaviors, talking to himself, laughing at inappropriate times; can only tolerate short interactions; patient is not in distress; dressed in casual attire, messy hair and disheveled, malodorous; mood is described as ok and affect anxious; eye contact improved but still looks away; Speech is normal volume and rate; some mild psychomotor agitation; thought process is more goal directed but concrete; Thought content is perseverative on discharge, minor medication changes; frequently asks about, Concerta; internally preoccupied; does not think he has a psychiatric illness; denies SI; no intent; no HI; Denies AVH however patient is consistently responding to internal stimuli. Patients insight and judgment impaired. Diagnostics Vital Signs (24Hr): Vital Signs - 24 hr 08/12/24 20:00 Temperature 97.8 F Pulse Rate 74 Respiratory Rate 16 Blood Pressure 143/82 H Pulse Oximetry 97 Oxygen Delivery Method Room Air BMI result Body Mass Index 28.7 Labs 07/17/24 14:49 07/26/24 16:18 Medications Medications Current Medications Acetaminophen (Acetaminophen 325 Mg Tablet) 650 mg PO Q6H PRN PRN Reason: Headache/Pain, Scale 1-10 Al Hydroxide/Mg Hydroxide (Magnesium Hydrox/Alum Hydrox 30 Ml Oral.Susp) 30 ml PO Q6H PRN PRN Reason: Heartburn/Nausea Bupropion HCl (Bupropion Hcl Xl 150 Mg Tab.Er.24h) 150 mg PO DAILY JESSICA Last Admin: 08/13/24 09:42 Dose: 150 mg Clonidine HCl (Clonidine Hcl 0.1 Mg Tablet) 0.1 mg PO Q4H PRN; Protocol PRN Reason: Anxiety Last Admin: 08/12/24 09:04 Dose: 0.1 mg Hydroxyzine HCl (Hydroxyzine Hcl 25 Mg Tablet) 25 mg PO Q6H PRN PRN Reason: mild anxiety/insomnia Last Admin: 08/12/24 09:06 Dose: 25 mg Magnesium Hydroxide (Milk Of Magnesia 30 Ml Oral.Susp) 30 ml PO DAILY PRN PRN Reason: Constipation Nicotine (Nicotine 21 Mg Patch.Td24) 21 mg TRANSDERMA DAILY PRN PRN Reason: smoking cessation Last Admin: 08/12/24 09:05 Dose: 21 mg Nicotine Polacrilex (Nicotine Polacrilex 2 Mg Gum) 4 mg BUCCAL Q2H PRN PRN Reason: Nicotine Cravings Last Admin: 08/13/24 09:38 Dose: 4 mg Quetiapine Fumarate (Quetiapine Fumarate 25 Mg Tablet) 25 mg PO QID PRN PRN Reason: mod to severe anxiety Risperidone (Risperidone 1 Mg Tablet) 1 mg PO Q4H PRN PRN Reason: AH/agitation Last Admin: 08/13/24 10:02 Dose: 1 mg Risperidone (Risperidone Oral Karen 1 Mg/Ml Solution) 1 mg PO BID JESSICA Last Admin: 08/13/24 08:28 Dose: 1 mg Sodium Chloride (Sodium Chloride 0.65 % Nasal 44 Ml Sprbtl) 1 spray NOSTRIL-B Q1H PRN PRN Reason: Congestion Trazodone HCl (Trazodone Hcl 50 Mg Tablet) 50 mg PO BEDTIME PRN PRN Reason: Insomnia Last Admin: 07/31/24 20:35 Dose: 50 mg Allergies Allergies Allergy/AdvReac Type Severity Reaction Status Date / Time strawberry Allergy Mild Itching Verified 07/17/24 14:35 cefazolin Allergy Unknown Itching Verified 07/17/24 14:35 sulfamethoxazole Allergy Unknown Itching Verified 07/17/24 14:35 [From Bactrim] trimethoprim [From Bactrim] Allergy Unknown Itching Verified 07/17/24 14:35 lorazepam [From Ativan] AdvReac Agitated Verified 07/17/24 14:35 lithium AdvReac Unknown other Uncoded 11/29/23 21:03 Assessment & Plan Assessment & Plan (1) Schizoaffective disorder, bipolar type: Status: Acute Code(s): F25.0 - Schizoaffective disorder, bipolar type (2) Anxiety: Status: Chronic Code(s): F41.9 - Anxiety disorder, unspecified Plan HPI: Patient is a 28-year-old male with history of schizoaffective disorder, bipolar type, history of polysubstance abuse who presents via EMS for manic and delusional behaviors. Patient is a poor historian, lying in bed, not opening his eyes, and offering little information. Initially, patient was talking with the nurse but 1 minute later, as soon as insurance underwriter sales walked in to talk with patient, he kept his eyes closed and refused to respond at all to insurance underwriter sales. A little later on on re-approached, patient is willing to briefly engage. He says that he is doing good. On inquiry, he says I have no idea why he is here in the hospital; insurance underwriter sales shared that his parents felt he was unsafe, disorganized and destroying property which he denies, even though insurance underwriter sales mentioned that his mother showed pictures of damaging his apartment. Patient refuses to sign in and remains on a 12 B. Patient took risperidone (he initially spit it out but then took it) this morning and says he will keep taking it but refuses the long- acting injectable. he denies any AVH, SI or HI. Patient's mother, Patsy who is also patient's healthcare proxy reported collateral. She says he has not been taking medications consistently has been very disorganized, has destroyed the apartment that she and her own and pay for, including smashing several television sets, multiple cell phones, refrigerators and other appliances and items, taking off all the door in the apartments (she provided pictures); she says he has been disorganized, not showering at all attending to ADLs, acting confused, and doing strange things such as snorting salt... Patient yelling at her, demanding things such as groceries which she buys and which he then proceeds to throwing the trash... Formulation/clinical reasoning: Patient has well documented history of schizoaffective disorder, bipolar type. Patient had very similar presentation on his last admission January 2024, but responded well with p.o. Risperdal and then on long-acting Risperdal product Uzedy (also on Wellbutrin XL 150 mg), organized, attending to ADLs, in good behavioral and impulse control and even developed some limited insight, briefly acknowledging that he did have paranoid delusions and auditory hallucinations prior to taking medication... However, patient has a long history of medication non-adherence and decompensation which is again resulting in need for psychiatric hospitalization. On the unit, he is with odd behaviors and malodorous (patient did ask for and ostensibly took a shower but emerged remaining malodorous and with matted hair). Patient is currently taking a low dose of Risperdal (though intermittently refused); however this dose is inadequate, patient does not want medication adjustments and refuses long-acting inectable Risperdal which is essential to sustained function in the community; he has no insight at all and insurance underwriter sales is convinced that patient will stop taking medications (or take them inadequately) immediately if he were to discharge. Invoke HCP: Patient has a signed healthcare proxy on file. Patient is disorganized and unable to function in the community; he does not have capacity to make medical decisions for himself and so insurance underwriter sales will invoke this healthcare proxy. Hospital course: 07/19 Patient difficult with which to engage and denies all psychiatric symptoms. He says I want to get off medication... [employer] shares his family's concerns about his behaviors but patient tells insurance underwriter sales I was doing good at home... Patient talking to insurance underwriter sales holding his hand in front of his mouth. At 1 point patient stopped talking to insurance underwriter sales completely, keeping his eyes closed but then responded later. Patient does not want to stay in the hospital and [employer] informed patient of involuntary commitment and invoking healthcare proxy. Patient's mother present who gave more collateral. She says that after his last discharge, he refused to get long-acting injectable and would not take medication. In March he took a low dose of Risperdal for 2 days but then not again until a couple of weeks later. At that time he took Risperdal 2 mg b.i.d. for 10 days and she reports it was the best days ever... That patient was doing well. However he stopped medication and again became disorganized. She says that patient has destroyed the apartment and shows insurance underwriter sales multiple pictures of broken televisions, other furniture, flipping over the refrigerator... Patient opened all the drawers throughout the apartment for some reason leaving them open; took off all the anterior doors off the hinges; she says that he broke the furnace somehow and the apartment complex was without heat; now the upstairs Renter is now moving out because does not want to have to deal with the heat going off. She says he took his bed out and put it in the yd; whenever she buys him food he immediately deems it into the trash. She said over the past couple weeks patient has been increasingly agitated and aggressive, once posturing aggressively towards his father; patient angrily threatened his mom yelling leave this house or I'll push you again... , yelling in her face with spittle coming out of his mouth.. Mother says she is scared, felt threatened and left. She said she called the police who know the family; she reports that patient postured aggressively towards 1 of the police officers but because the officer knew him, told his partner to stand down and they thus brought him to the hospital 07/20 pt remains psychotic, talking to himself; patient is difficult with which to engage. Nursing observing patient cheeking Risperdal and spitting out the garbage. [employer] discussed taking Risperdal with patient who has some ambivalence and told insurance underwriter sales he would take it but then that he did not want it and needed something that would help [him] both sleep and drive... He then said he would take it even it increased dose of 2 mg b.i.d. -Patient remains with bizarre behaviors. Patient does not look at insurance underwriter sales when talking; during conversation he will intermittently stop talking in the middle of conversation, stare off, sometimes muttering to himself and then restart talking... Patient lining up sugar packets and cards on his bed in specific ways; in the milieu, insurance underwriter sales observed patient jumping on a chair and hopping around in the kitchen 07/21 Nursing continue to observe patient cheeking Risperdal than spitting it out. Remains difficult with which to engage and will sometimes not respond to insurance underwriter sales at all. Remains with odd, behaviors and internally preoccupied -switch to liquid Risperdal 07/22 Patient refused liquid Risperdal last night but took it this morning. Patient tells insurance underwriter sales he will keep taking the Risperdal, since he likes the taste of the liquid Risperdal. Patient remains with disorganized behaviors; patient laughing out loud. [employer] observed patient going into the kitchen, taking something out of the refrigerator, sitting down in a chair and waiting a few sec and then putting it back in the refrigerator; patient would then going to his room, run around his bed and then back into the kitchen to repeat the same behavior. 07/23 remains disorganized, internally pre-occupied. took risperdal last night and today 07/24 Patient remains with very odd behaviors. On approach, patient turns and quickly walks away; insurance underwriter sales catches up with patient and he is willing to talk but turns at an angle and looks away while talking. He says he is good and that he just wants some paper to draw. Today patient had white sticky substance covering the length of multiple pigtails in his hair; insurance underwriter sales asked about this and patient said it was tooth paste. [employer] asked what for and patient said I just woke up this way... He then walks away quickly. -has been taking liquid Risperdal; says he likes the limb and flavored 07/25 pt remains disorganized, psychotic. Explained to pt court tomorrow which he was surprised about (though has been informed). Pt asks to switch from risperdal to ADD medication; then asks to switch to happy medication. He likes the idea of restarting Wellbutrin. Patient stops talking to insurance underwriter sales and attends to internal stimuli, seemingly oblivious to writers presence...conversation never resumes. Instead, pt continues to draw smilie face's and hearts on a piece of paper over and over Impression: pt remains floridly psychotic with disorganized speech and behavior. Patient cannot distinguish reality from delusion. Pt is fully incapable of caring for himself in the community and would not be able to acquire food or longterm on his own; and on his own he would be vulnerable to predation. He has no insight at all into his psychiatric illness or his need for medication and is only taking Liquid Risperdal since he likes the taste of it. Were patient to discharge today, he would very soon cease taking medication. 07/26 c/o nasal congestion; covid/rsv ordered and negative Pt initially refused Risperdal last night but then took it later on. Pt sitting in room, in dark, drawing something that resembles an equation, he says it's something i might make later on Pt said he wanted to talk about discharge and insurance underwriter sales reminded him about court today and that the magisterial district judge would decide; he said he does not want to attend court due to anxiety Court civilly committed patient involuntarily to treatment with substituted judgment -will start with Uzedy 100mg; this will last for 1 month; anticipating it will take patient at least 1 month to stabilize; plan will be to give patient Uzedy 200mg prior to leaving which will give him a longer period of stability in the community 07/27: Active on unit. guarded. Pt responding with one word answers to questions. Patient reports feeling fine ; pt was informed of Uzedy injection ordered for today. Pt did not acknowledge T/W and proceeded to close eyes. Pt was encouraged to inform RN if he has any questions. 07/28 seems more withdrawn today-one word answers to nursing, questioning provider re dc- CTP 07/29 - better more engagable- talking getting up getting meals= needs adls- CTP 07/30 pt a little more organized in that has conversation for longer. He says he got the shot (ANDRE of risperdal) and is wondering when he can go home. He currently accepts that this can be discussed with him and parents but would like to see pt closer to his regular self. Pt says he is suicidal and can he get on the antidepressant wellbutrin. No plans or intentions, just thoughts but really wants to -start - wellbutrin -still no shower, and disheveled, internally pre-occupied and no insight -start Wellbutrin; pt stable enough continue po risperdal for couple days especially now starting wellbutrin; will soon dc 07/31 SI resolved. although some improvement patient remains disorganized and starts off saying at home he has nothing to do except for singing, dancing and having business ideas... Mom present Discussed mom's concern with Wellbutrin XL causing too much energy verses the SR. Pt however likes the long acting XL 150mg since it lasts all day long. Had the same conversation with mom last admission when patient then also waned 150mg and disagreed with this mom's perspective; that time as now, insurance underwriter sales, staff do not notice any negative effect. he felt that 100mg did not help his mood enough and did not last as long -Patient had moment of insight and said my tyoughts are too mixed up in my head where i'm not sure what's real anymore....is risperdaone the right medicine? then i'll stay on it...i get lost in this imaginary world -However moments later he said i don't think i have anything (any psych illness) and repeated he does not feel he 08/01Remains disorganized with behavior, internally preoccupied, odd, dancing around the unit; talking to himself at length. met with his mother and patient says he is fine with her being his healthcare proxy in making medical decisions. Patient denies all psychiatric illness and does not think he has a psychiatric problem or that he needs medications. Asks if he can go home today, temporarily accepting that he can not 08/02 Patient wanted Wellbutrin to be discontinued, saying it makes him anxious and that he feels better without it. Also that he likes Seroquel which was started for anxiety and says this is helping. Patient says he is fine asks for discharge but temporarily accept not possible. Remains internally preoccupied talking himself 08/03 Patient asks for Concerta which he says he was on as an adolescent, something to help him focus and to help his mood. [employer] explained what this medication is not currently possible however revisited the idea Wellbutrin. Patient wanted to be back on Wellbutrin but not the long-acting 1, instead the immediate release to which insurance underwriter sales agreed. Patient again asked for discharge home. [employer] explained why he is not ready with which patient is agreed. [employer] tried some reality testing, reminding patient that he destroyed the apartment he was living in; patient denied this. [employer] explained that his mother had numerous pictures about it and patient said he disagreed but that that is in the past. 08/04: Continue current plans and regimen 08/05: Continue current regimen and plans Impression: Patient remains without any insight at all. He is disorganized and can only remain appropriate for brief interactions. Patient where he would be discharged will not take medications, will not get next long-acting injectable and will remain psychotic, disorganized and unable to function on his own. 08/06 remains without insight; continue current treatment plan 08/07 Patient confused; he keeps asking for Wellbutrin to be discontinued and then to be restarted. He is asking for it to be restarted with the long-acting now. Patient remains briefly able to happen organized discussion but quickly becomes anxious, internally preoccupied. Patient can not seem to talk about psychotic symptoms and on insurance underwriter sales's inquiry, denies any history of psychotic symptoms including his bizarre and disorganized behavior at home resulting in significant damage to his apartment. -patient continues to ask for Concerta despite having had numerous conversations with insurance underwriter sales about this; it is insurance underwriter sales's opinion that patient is being directed by auditory hallucinations regarding Concerta and Wellbutrin 08/08 Patient approaches insurance underwriter sales to say that he does not think he has a psychiatric illness at all, that he has had no psychotic symptoms however and he just has anxiety. He says he does not think he needs Risperdal and that he will absolutely not take it after he is discharged. [employer] tries to share with him his behaviors when he is off this medication again referring to damaging his apartment however patient explains this by saying it was his 1st apartment, out in his own; then he says he is just a kid though insurance underwriter sales reminds him that he is 28 years old and that this is not normal behavior. Patient says he disagrees and reiterates that he does not think he needs Risperdal and that he will not be taking it on discharge. 08/09 he refused Wellbutrin; remains change his mind about medications throughout the day; internally preoccupied; confused 08/10 Patient talking about how he does not need Risperdal, does not think he has a psychiatric illness at all; will not take Risperdal on DC; just wants Concerta. Patient not attending to ADLs; malodorous; internally preoccupied 08/11 Today for the 1st time patient acknowledged that he had auditory hallucinations and that he was feeling scared; he himself asked for risperidone p.o.. Patient would not discuss further. Patient later refused risperidone p.o. saying that he wants something for anger, not anxiety... 08/12 Patient continues to be paranoid and anxious with psychotic confusion. Patient himself expressing as much and says that the Risperdal shot is not a high enough dose and should be increased when he gets it next. Patient has been asking for risperidone p.o. and is now asking for it to be scheduled with which insurance underwriter sales agrees [employer] agrees that current dose of long-acting injectable is either not high enough or has not become effective enough in patient requires additional risperidone to stabilize Impression: Patient remains without any insight at all; he remains with psychotic symptoms, internally preoccupied, odd behaviors, talking to himself. Patient also has psychotic confusion, confused due to internal preoccupations and very likely AH, to the point where patient has nearly the same conversation with insurance underwriter sales every day and daily changes his mind about how he feels about very small medication changes. Patient remains with significant psychotic symptoms. Although he received long-acting Risperdal on 07/27, it is either that this dose is too low or that it has not yet reached its full therapeutic effect. Patient needs Risperdal p.o.. Will need to review to see if Risperdal Uzedy dose can be increased Plan: Section 8/8a patient involuntary committed with substituted judgment Healthcare proxy affirmed Q 15 minute checks Medications: Risperdal liquid p.o. 1 mg b.i.d. Seroquel p.r.n. for anxiety +/-Wellbutrin based on pt; ER 150mg daily (pt request this instead of Wellbutrin IR 75 mg daily) Pending: Risperdal Uzedy 200 mg on 08/22/24 (on 07/27 received Risperdal Uzedy 100 mg) DC Risperdal (liquid) 2 mg b.i.d. will start up again if psychosis worsens -Prior to DC, after 30 days will follow-up with Risperdal Uzedy 200 mg Past med trials: Vraylar: Did not seem to work Medications on Court-ordered substituted judgment: Risperdal up to 6 mg Uzedy up to 200 mg q.2 months Clozaril Zyprexa Paliperidone/Invega including Trinza Ziprasidone Depakote Patient educated on: diagnosis and medication risk/benefits Informed Consent: understands, does not understand and further education needed Reason for continued inpatient stay Substantial Risk for: inability to function Time Spent With Patient Time: Total time managing care of this patient today ____ minutes.
--- NOTE | 2024-08-13 12:48 | HO.PSYCHPN ---
Subjective Subjective Date of Service: 08/13/24 Reason For Visit: Schizoaffective Disorder, bipolar type Interim History: Met with patient; discussed with team Patient came to ask lead technical writer for increasing Wellbutrin saying he wants to go to 300 mg and says he feels he needs it to help with his mood. Patient remains guarded around talking about psychotic symptoms but says he likes that the p.o. Risperdal was scheduled has been taking it. Marble Mason talked about risks of increasing Wellbutrin but patient says he wants to try. Mental Status Exam Mental Status Exam Narrative: Pt is alert and oriented; behavior is more cooperative, calm; still odd behaviors, talking to himself, laughing at inappropriate times; can only tolerate short interactions; patient is not in distress; dressed in casual attire, messy hair and disheveled, malodorous; mood is described as ok and affect anxious; eye contact improved but still looks away; Speech is normal volume and rate; some mild psychomotor agitation; thought process is more goal directed but concrete; Thought content is perseverative on discharge, minor medication changes; frequently asks about, Concerta; internally preoccupied; does not think he has a psychiatric illness; denies SI; no intent; no HI; Denies AVH however patient is consistently responding to internal stimuli. Patients insight and judgment impaired. Diagnostics Vital Signs (24Hr): Vital Signs - 24 hr 08/12/24 20:00 Temperature 97.8 F Pulse Rate 74 Respiratory Rate 16 Blood Pressure 143/82 H Pulse Oximetry 97 Oxygen Delivery Method Room Air BMI result Body Mass Index 28.7 Labs 07/17/24 14:49 07/26/24 16:18 Medications Medications Current Medications Acetaminophen (Acetaminophen 325 Mg Tablet) 650 mg PO Q6H PRN PRN Reason: Headache/Pain, Scale 1-10 Al Hydroxide/Mg Hydroxide (Magnesium Hydrox/Alum Hydrox 30 Ml Oral.Susp) 30 ml PO Q6H PRN PRN Reason: Heartburn/Nausea Bupropion HCl (Bupropion Hcl Xl 150 Mg Tab.Er.24h) 150 mg PO DAILY JESSICA Last Admin: 08/13/24 09:42 Dose: 150 mg Clonidine HCl (Clonidine Hcl 0.1 Mg Tablet) 0.1 mg PO Q4H PRN; Protocol PRN Reason: Anxiety Last Admin: 08/12/24 09:04 Dose: 0.1 mg Hydroxyzine HCl (Hydroxyzine Hcl 25 Mg Tablet) 25 mg PO Q6H PRN PRN Reason: mild anxiety/insomnia Last Admin: 08/12/24 09:06 Dose: 25 mg Magnesium Hydroxide (Milk Of Magnesia 30 Ml Oral.Susp) 30 ml PO DAILY PRN PRN Reason: Constipation Nicotine (Nicotine 21 Mg Patch.Td24) 21 mg TRANSDERMA DAILY PRN PRN Reason: smoking cessation Last Admin: 08/12/24 09:05 Dose: 21 mg Nicotine Polacrilex (Nicotine Polacrilex 2 Mg Gum) 4 mg BUCCAL Q2H PRN PRN Reason: Nicotine Cravings Last Admin: 08/13/24 09:38 Dose: 4 mg Quetiapine Fumarate (Quetiapine Fumarate 25 Mg Tablet) 25 mg PO QID PRN PRN Reason: mod to severe anxiety Risperidone (Risperidone 1 Mg Tablet) 1 mg PO Q4H PRN PRN Reason: AH/agitation Last Admin: 08/13/24 10:02 Dose: 1 mg Risperidone (Risperidone Oral Karen 1 Mg/Ml Solution) 1 mg PO BID JESSICA Last Admin: 08/13/24 08:28 Dose: 1 mg Sodium Chloride (Sodium Chloride 0.65 % Nasal 44 Ml Sprbtl) 1 spray NOSTRIL-B Q1H PRN PRN Reason: Congestion Trazodone HCl (Trazodone Hcl 50 Mg Tablet) 50 mg PO BEDTIME PRN PRN Reason: Insomnia Last Admin: 07/31/24 20:35 Dose: 50 mg Allergies Allergies Allergy/AdvReac Type Severity Reaction Status Date / Time strawberry Allergy Mild Itching Verified 07/17/24 14:35 cefazolin Allergy Unknown Itching Verified 07/17/24 14:35 sulfamethoxazole Allergy Unknown Itching Verified 07/17/24 14:35 [From Bactrim] trimethoprim [From Bactrim] Allergy Unknown Itching Verified 07/17/24 14:35 lorazepam [From Ativan] AdvReac Agitated Verified 07/17/24 14:35 lithium AdvReac Unknown other Uncoded 11/29/23 21:03 Assessment & Plan Assessment & Plan (1) Schizoaffective disorder, bipolar type: Status: Acute Code(s): F25.0 - Schizoaffective disorder, bipolar type (2) Anxiety: Status: Chronic Code(s): F41.9 - Anxiety disorder, unspecified Plan HPI: Patient is a 28-year-old male with history of schizoaffective disorder, bipolar type, history of polysubstance abuse who presents via EMS for manic and delusional behaviors. Patient is a poor historian, lying in bed, not opening his eyes, and offering little information. Initially, patient was talking with the nurse but 1 minute later, as soon as lead technical writer walked in to talk with patient, he kept his eyes closed and refused to respond at all to lead technical writer. A little later on on re-approached, patient is willing to briefly engage. He says that he is doing good. On inquiry, he says I have no idea why he is here in the hospital; lead technical writer shared that his parents felt he was unsafe, disorganized and destroying property which he denies, even though lead technical writer mentioned that his mother showed pictures of damaging his apartment. Patient refuses to sign in and remains on a 12 B. Patient took risperidone (he initially spit it out but then took it) this morning and says he will keep taking it but refuses the long-acting injectable. he denies any AVH, SI or HI. Patient's mother, Patsy who is also patient's healthcare proxy reported collateral. She says he has not been taking medications consistently has been very disorganized, has destroyed the apartment that she and her own and pay for, including smashing several television sets, multiple cell phones, refrigerators and other appliances and items, taking off all the door in the apartments (she provided pictures); she says he has been disorganized, not showering at all attending to ADLs, acting confused, and doing strange things such as snorting salt... Patient yelling at her, demanding things such as groceries which she buys and which he then proceeds to throwing the trash... Formulation/clinical reasoning: Patient has well documented history of schizoaffective disorder, bipolar type. Patient had very similar presentation on his last admission January 2024, but responded well with p.o. Risperdal and then on long-acting Risperdal product Uzedy (also on Wellbutrin XL 150 mg), organized, attending to ADLs, in good behavioral and impulse control and even developed some limited insight, briefly acknowledging that he did have paranoid delusions and auditory hallucinations prior to taking medication... However, patient has a long history of medication non-adherence and decompensation which is again resulting in need for psychiatric hospitalization. On the unit, he is with odd behaviors and malodorous (patient did ask for and ostensibly took a shower but emerged remaining malodorous and with matted hair). Patient is currently taking a low dose of Risperdal (though intermittently refused); however this dose is inadequate, patient does not want medication adjustments and refuses long-acting inectable Risperdal which is essential to sustained function in the community; he has no insight at all and lead technical writer is convinced that patient will stop taking medications (or take them inadequately) immediately if he were to discharge. Invoke HCP: Patient has a signed healthcare proxy on file. Patient is disorganized and unable to function in the community; he does not have capacity to make medical decisions for himself and so lead technical writer will invoke this healthcare proxy. Hospital course: 07/19 Patient difficult with which to engage and denies all psychiatric symptoms. He says I want to get off medication... Marble Mason shares his family's concerns about his behaviors but patient tells lead technical writer I was doing good at home... Patient talking to lead technical writer holding his hand in front of his mouth. At 1 point patient stopped talking to lead technical writer completely, keeping his eyes closed but then responded later. Patient does not want to stay in the hospital and Marble Mason informed patient of involuntary commitment and invoking healthcare proxy. Patient's mother present who gave more collateral. She says that after his last discharge, he refused to get long-acting injectable and would not take medication. In March he took a low dose of Risperdal for 2 days but then not again until a couple of weeks later. At that time he took Risperdal 2 mg b.i.d. for 10 days and she reports it was the best days ever... That patient was doing well. However he stopped medication and again became disorganized. She says that patient has destroyed the apartment and shows lead technical writer multiple pictures of broken televisions, other furniture, flipping over the refrigerator... Patient opened all the drawers throughout the apartment for some reason leaving them open; took off all the anterior doors off the hinges; she says that he broke the furnace somehow and the apartment complex was without heat; now the upstairs Renter is now moving out because does not want to have to deal with the heat going off. She says he took his bed out and put it in the yd; whenever she buys him food he immediately deems it into the trash. She said over the past couple weeks patient has been increasingly agitated and aggressive, once posturing aggressively towards his father; patient angrily threatened his mom yelling leave this house or I'll push you again... , yelling in her face with spittle coming out of his mouth.. Mother says she is scared, felt threatened and left. She said she called the police who know the family; she reports that patient postured aggressively towards 1 of the police officers but because the officer knew him, told his partner to stand down and they thus brought him to the hospital 07/20 pt remains psychotic, talking to himself; patient is difficult with which to engage. Nursing observing patient cheeking Risperdal and spitting out the garbage. Marble Mason discussed taking Risperdal with patient who has some ambivalence and told lead technical writer he would take it but then that he did not want it and needed something that would help [him] both sleep and drive... He then said he would take it even it increased dose of 2 mg b.i.d. -Patient remains with bizarre behaviors. Patient does not look at lead technical writer when talking; during conversation he will intermittently stop talking in the middle of conversation, stare off, sometimes muttering to himself and then restart talking... Patient lining up sugar packets and cards on his bed in specific ways; in the milieu, lead technical writer observed patient jumping on a chair and hopping around in the kitchen 07/21 Nursing continue to observe patient cheeking Risperdal than spitting it out. Remains difficult with which to engage and will sometimes not respond to lead technical writer at all. Remains with odd, behaviors and internally preoccupied -switch to liquid Risperdal 07/22 Patient refused liquid Risperdal last night but took it this morning. Patient tells lead technical writer he will keep taking the Risperdal, since he likes the taste of the liquid Risperdal. Patient remains with disorganized behaviors; patient laughing out loud. Marble Mason observed patient going into the kitchen, taking something out of the refrigerator, sitting down in a chair and waiting a few sec and then putting it back in the refrigerator; patient would then going to his room, run around his bed and then back into the kitchen to repeat the same behavior. 07/23 remains disorganized, internally pre-occupied. took risperdal last night and today 07/24 Patient remains with very odd behaviors. On approach, patient turns and quickly walks away; lead technical writer catches up with patient and he is willing to talk but turns at an angle and looks away while talking. He says he is good and that he just wants some paper to draw. Today patient had white sticky substance covering the length of multiple pigtails in his hair; lead technical writer asked about this and patient said it was tooth paste. Marble Mason asked what for and patient said I just woke up this way... He then walks away quickly. -has been taking liquid Risperdal; says he likes the limb and flavored 07/25 pt remains disorganized, psychotic. Explained to pt court tomorrow which he was surprised about (though has been informed). Pt asks to switch from risperdal to ADD medication; then asks to switch to happy medication. He likes the idea of restarting Wellbutrin. Patient stops talking to lead technical writer and attends to internal stimuli, seemingly oblivious to writers presence...conversation never resumes. Instead, pt continues to draw smilie face's and hearts on a piece of paper over and over Impression: pt remains floridly psychotic with disorganized speech and behavior. Patient cannot distinguish reality from delusion. Pt is fully incapable of caring for himself in the community and would not be able to acquire food or long term on his own; and on his own he would be vulnerable to predation. He has no insight at all into his psychiatric illness or his need for medication and is only taking Liquid Risperdal since he likes the taste of it. Were patient to discharge today, he would very soon cease taking medication. 07/26 c/o nasal congestion; covid/rsv ordered and negative Pt initially refused Risperdal last night but then took it later on. Pt sitting in room, in dark, drawing something that resembles an equation, he says it's something i might make later on Pt said he wanted to talk about discharge and lead technical writer reminded him about court today and that the ceramic designer would decide; he said he does not want to attend court due to anxiety Court civilly committed patient involuntarily to treatment with substituted judgment -will start with Uzedy 100mg; this will last for 1 month; anticipating it will take patient at least 1 month to stabilize; plan will be to give patient Uzedy 200mg prior to leaving which will give him a longer period of stability in the community 07/27: Active on unit. guarded. Pt responding with one word answers to questions. Patient reports feeling fine ; pt was informed of Uzedy injection ordered for today. Pt did not acknowledge T/W and proceeded to close eyes. Pt was encouraged to inform RN if he has any questions. 07/28 seems more withdrawn today-one word answers to nursing, questioning provider re dc- CTP 07/29 - better more engagable- talking getting up getting meals= needs adls- CTP 07/30 pt a little more organized in that has conversation for longer. He says he got the shot (ANDRE of risperdal) and is wondering when he can go home. He currently accepts that this can be discussed with him and parents but would like to see pt closer to his regular self. Pt says he is suicidal and can he get on the antidepressant wellbutrin. No plans or intentions, just thoughts but really wants to -start - wellbutrin -still no shower, and disheveled, internally pre-occupied and no insight -start Wellbutrin; pt stable enough continue po risperdal for couple days especially now starting wellbutrin; will soon dc 07/31 SI resolved. although some improvement patient remains disorganized and starts off saying at home he has nothing to do except for singing, dancing and having business ideas... Mom present Discussed mom's concern with Wellbutrin XL causing too much energy verses the SR. Pt however likes the long acting XL 150mg since it lasts all day long. Had the same conversation with mom last admission when patient then also waned 150mg and disagreed with this mom's perspective; that time as now, lead technical writer, staff do not notice any negative effect. he felt that 100mg did not help his mood enough and did not last as long -Patient had moment of insight and said my tyoughts are too mixed up in my head where i'm not sure what's real anymore....is risperdaone the right medicine? then i'll stay on it...i get lost in this imaginary world -However moments later he said i don't think i have anything (any psych illness) and repeated he does not feel he 08/01Remains disorganized with behavior, internally preoccupied, odd, dancing around the unit; talking to himself at length. met with his mother and patient says he is fine with her being his healthcare proxy in making medical decisions. Patient denies all psychiatric illness and does not think he has a psychiatric problem or that he needs medications. Asks if he can go home today, temporarily accepting that he can not 08/02 Patient wanted Wellbutrin to be discontinued, saying it makes him anxious and that he feels better without it. Also that he likes Seroquel which was started for anxiety and says this is helping. Patient says he is fine asks for discharge but temporarily accept not possible. Remains internally preoccupied talking himself 08/03 Patient asks for Concerta which he says he was on as an adolescent, something to help him focus and to help his mood. Marble Mason explained what this medication is not currently possible however revisited the idea Wellbutrin. Patient wanted to be back on Wellbutrin but not the long-acting 1, instead the immediate release to which lead technical writer agreed. Patient again asked for discharge home. Marble Mason explained why he is not ready with which patient is agreed. Marble Mason tried some reality testing, reminding patient that he destroyed the apartment he was living in; patient denied this. Marble Mason explained that his mother had numerous pictures about it and patient said he disagreed but that that is in the past. 08/04: Continue current plans and regimen 08/05: Continue current regimen and plans Impression: Patient remains without any insight at all. He is disorganized and can only remain appropriate for brief interactions. Patient where he would be discharged will not take medications, will not get next long-acting injectable and will remain psychotic, disorganized and unable to function on his own. 08/06 remains without insight; continue current treatment plan 08/07 Patient confused; he keeps asking for Wellbutrin to be discontinued and then to be restarted. He is asking for it to be restarted with the long-acting now. Patient remains briefly able to happen organized discussion but quickly becomes anxious, internally preoccupied. Patient can not seem to talk about psychotic symptoms and on lead technical writer's inquiry, denies any history of psychotic symptoms including his bizarre and disorganized behavior at home resulting in significant damage to his apartment. -patient continues to ask for Concerta despite having had numerous conversations with lead technical writer about this; it is lead technical writer's opinion that patient is being directed by auditory hallucinations regarding Concerta and Wellbutrin 08/08 Patient approaches lead technical writer to say that he does not think he has a psychiatric illness at all, that he has had no psychotic symptoms however and he just has anxiety. He says he does not think he needs Risperdal and that he will absolutely not take it after he is discharged. Marble Mason tries to share with him his behaviors when he is off this medication again referring to damaging his apartment however patient explains this by saying it was his 1st apartment, out in his own; then he says he is just a kid though lead technical writer reminds him that he is 28 years old and that this is not normal behavior. Patient says he disagrees and reiterates that he does not think he needs Risperdal and that he will not be taking it on discharge. 08/09 he refused Wellbutrin; remains change his mind about medications throughout the day; internally preoccupied; confused 08/10 Patient talking about how he does not need Risperdal, does not think he has a psychiatric illness at all; will not take Risperdal on DC; just wants Concerta. Patient not attending to ADLs; malodorous; internally preoccupied 08/11 Today for the 1st time patient acknowledged that he had auditory hallucinations and that he was feeling scared; he himself asked for risperidone p.o.. Patient would not discuss further. Patient later refused risperidone p.o. saying that he wants something for anger, not anxiety... 08/12 Patient continues to be paranoid and anxious with psychotic confusion. Patient himself expressing as much and says that the Risperdal shot is not a high enough dose and should be increased when he gets it next. Patient has been asking for risperidone p.o. and is now asking for it to be scheduled with which lead technical writer agrees Marble Mason agrees that current dose of long-acting injectable is either not high enough or has not become effective enough in patient requires additional risperidone to stabilize 08/13 Patient came to ask lead technical writer for increasing Wellbutrin saying he wants to go to 300 mg and says he feels he needs it to help with his mood. Patient remains guarded around talking about psychotic symptoms but says he likes that the p.o. Risperdal was scheduled has been taking it. Marble Mason talked about risks of increasing Wellbutrin but patient says he wants to try. -regarding request for Concerta, given patient's continued psychotic symptoms, Concerta risks exacerbating his psychosis and increasing agitation and pushing towards kentrell.. At this time he is not stable on current Uzedy dose. Once patient's psychotic symptoms becomes stabilized, consider can become an option. -it has become increasingly obvious that patient is chasing after symptoms he has a hard time discussing or even identifying; in his psychotic confusion he is asking for changes every day regarding medication. In order to preserve as much autonomy as possible for this patient, lead technical writer has allowed him have say in decision-making regarding medications like Wellbutrin and PRNs. What has become clear however is what he needs is in increase in Risperdal and that Uzedy 100mg qmonth is not enough. Impression: Patient remains without any insight at all; he remains with psychotic symptoms, internally preoccupied, odd behaviors, talking to himself. Patient also has psychotic confusion, confused due to internal preoccupations and very likely AH, to the point where patient has nearly the same conversation with lead technical writer every day and daily changes his mind about how he feels about very small medication changes. Patient remains with significant psychotic symptoms. Although he received long-acting Risperdal on 07/27, it is either that this dose is too low or that it has not yet reached its full therapeutic effect. Patient needs Risperdal p.o.. Will need to review to see if Risperdal Uzedy dose can be increased Plan: Section 8/8a patient involuntary committed with substituted judgment Healthcare proxy affirmed Q 15 minute checks Medications: Risperdal liquid p.o. 1 mg b.i.d. Seroquel p.r.n. for anxiety +/-Wellbutrin based on pt; ER 150mg daily (pt request this instead of Wellbutrin IR 75 mg daily) Pending: Risperdal Uzedy 200 mg on 08/22/24 (on 07/27 received Risperdal Uzedy 100 mg) DC Risperdal (liquid) 2 mg b.i.d. will start up again if psychosis worsens -Prior to DC, after 30 days will follow-up with Risperdal Uzedy 200 mg Past med trials: Vraylar: Did not seem to work Medications on Court-ordered substituted judgment: Risperdal up to 6 mg Uzedy up to 200 mg q.2 months Clozaril Zyprexa Paliperidone/Invega including Trinza Ziprasidone Depakote Patient educated on: diagnosis and medication risk/benefits Informed Consent: does not understand Reason for continued inpatient stay Substantial Risk for: inability to function Time Spent With Patient Time: Total time managing care of this patient today ____ minutes.
[2024-08-13] MEDS: Nicotine 21 MG PATCH.TD24 TRANSDERMA (16:24)
[2024-08-13 20:00] VITALS: BP 123/71; PULSE 89; RESP 16; TEMP 36.4; O2SAT 96
[2024-08-14] MEDS: buPROPion HCl XL 300 MG TAB.ER.24H PO (08:40)
[2024-08-14] MEDS: Nicotine Polacrilex 2 MG GUM 4 MG BUCCAL ×3 (08:45→16:19)
[2024-08-14] MEDS: Nicotine 21 MG PATCH.TD24 TRANSDERMA (11:34)
[2024-08-14] MEDS: risperiDONE Oral Sol 1 MG/ML SOLUTION PO ×3 (11:39→20:44)
[2024-08-14] MEDS: risperiDONE 1 MG TABLET PO ×2 (12:39→16:41)
[2024-08-14 12:41] VITALS: BP 108/70
[2024-08-14] MEDS: cloNIDine HCL 0.1 MG TABLET PO (12:41)
[2024-08-14] MEDS: QUEtiapine Fumarate 25 MG TABLET PO (12:41)
[2024-08-14] MEDS: hydrOXYzine HCL 25 MG TABLET PO (12:41)
[2024-08-14] MEDS: QUEtiapine Fumarate 50 MG TABLET PO (16:10)
[2024-08-14] MEDS: hydrOXYzine HCL 50 MG TABLET PO (16:10)
--- NOTE | 2024-08-14 22:12 | P.PNPSI_ITS ---
Subjective Subjective Date of Service: 08/14/24 Reason For Visit: Schizoaffective Disorder, bipolar type Interim History: Met with patient; discussed with team Patient approached process description writer asking for an increase in p.o. Risperdal though he can not say why other than to say he needs it because it helps with his anxiety. He also asks for his other PRNs to be increased specifically asking for Seroquel and hydroxyzine doses to increase. Mental Status Exam Mental Status Exam Narrative: Pt is alert and oriented; behavior is cooperative, mostly calm; still odd behaviors, talking to himself, laughing at inappropriate times; can only tolerate short interactions; patient is not in distress; dressed in casual attire, messy hair and disheveled, malodorous; mood is described as ok and affect anxious; eye contact improved but still looks away; Speech is normal volume and rate; some mild psychomotor agitation; thought process is more goal directed but concrete; Thought content is perseverative on discharge, minor medication changes; frequently asks about, Concerta; internally preoccupied; does not think he has a psychiatric illness; denies SI; no intent; no HI; Denies AVH however patient is consistently responding to internal stimuli. Patients insight and judgment impaired. Diagnostics Vital Signs (24Hr): Vital Signs - 24 hr 08/14/24 12:41 Blood Pressure 108/70 BMI result Body Mass Index 28.7 Labs 07/17/24 14:49 07/26/24 16:18 Medications Medications Current Medications Acetaminophen (Acetaminophen 325 Mg Tablet) 650 mg PO Q6H PRN PRN Reason: Headache/Pain, Scale 1-10 Al Hydroxide/Mg Hydroxide (Magnesium Hydrox/Alum Hydrox 30 Ml Oral.Susp) 30 ml PO Q6H PRN PRN Reason: Heartburn/Nausea Bupropion HCl (Bupropion Hcl Xl 300 Mg Tab.Er.24h) 300 mg PO DAILY JESSICA Last Admin: 08/14/24 08:40 Dose: 300 mg Clonidine HCl (Clonidine Hcl 0.1 Mg Tablet) 0.1 mg PO Q4H PRN; Protocol PRN Reason: Anxiety Last Admin: 08/14/24 12:41 Dose: 0.1 mg Hydroxyzine HCl (Hydroxyzine Hcl 50 Mg Tablet) 50 mg PO Q6H PRN PRN Reason: mild anxiety/insomnia Last Admin: 08/14/24 16:10 Dose: 50 mg Magnesium Hydroxide (Milk Of Magnesia 30 Ml Oral.Susp) 30 ml PO DAILY PRN PRN Reason: Constipation Nicotine (Nicotine 21 Mg Patch.Td24) 21 mg TRANSDERMA DAILY PRN PRN Reason: smoking cessation Last Admin: 08/14/24 11:34 Dose: 21 mg Nicotine Polacrilex (Nicotine Polacrilex 2 Mg Gum) 4 mg BUCCAL Q2H PRN PRN Reason: Nicotine Cravings Last Admin: 08/14/24 16:19 Dose: 4 mg Quetiapine Fumarate (Quetiapine Fumarate 50 Mg Tablet) 50 mg PO QID PRN PRN Reason: mod to severe anxiety Last Admin: 08/14/24 16:10 Dose: 50 mg Risperidone (Risperidone 1 Mg Tablet) 1 mg PO Q4H PRN PRN Reason: AH/agitation Last Admin: 08/14/24 16:41 Dose: 1 mg Risperidone (Risperidone Oral Karen 1 Mg/Ml Solution) 1 mg PO TID JESSICA Last Admin: 08/14/24 20:44 Dose: 1 mg Sodium Chloride (Sodium Chloride 0.65 % Nasal 44 Ml Sprbtl) 1 spray NOSTRIL-B Q1H PRN PRN Reason: Congestion Trazodone HCl (Trazodone Hcl 50 Mg Tablet) 50 mg PO BEDTIME PRN PRN Reason: Insomnia Last Admin: 07/31/24 20:35 Dose: 50 mg Allergies Allergies Allergy/AdvReac Type Severity Reaction Status Date / Time strawberry Allergy Mild Itching Verified 07/17/24 14:35 cefazolin Allergy Unknown Itching Verified 07/17/24 14:35 sulfamethoxazole Allergy Unknown Itching Verified 07/17/24 14:35 [From Bactrim] trimethoprim [From Bactrim] Allergy Unknown Itching Verified 07/17/24 14:35 lorazepam [From Ativan] AdvReac Agitated Verified 07/17/24 14:35 lithium AdvReac Unknown other Uncoded 11/29/23 21:03 Assessment & Plan Assessment & Plan (1) Schizoaffective disorder, bipolar type: Status: Acute Code(s): F25.0 - Schizoaffective disorder, bipolar type (2) Anxiety: Status: Chronic Code(s): F41.9 - Anxiety disorder, unspecified Plan HPI: Patient is a 28-year-old male with history of schizoaffective disorder, bipolar type, history of polysubstance abuse who presents via EMS for manic and delusional behaviors. Patient is a poor historian, lying in bed, not opening his eyes, and offering little information. Initially, patient was talking with the nurse but 1 minute later, as soon as process description writer walked in to talk with patient, he kept his eyes closed and refused to respond at all to process description writer. A little later on on re-approached, patient is willing to briefly engage. He says that he is doing good. On inquiry, he says I have no idea why he is here in the hospital; process description writer shared that his parents felt he was unsafe, disorganized and destroying property which he denies, even though process description writer mentioned that his mother showed pictures of damaging his apartment. Patient refuses to sign in and remains on a 12 B. Patient took risperidone (he initially spit it out but then took it) this morning and says he will keep taking it but refuses the long- acting injectable. he denies any AVH, SI or HI. Patient's mother, Patsy who is also patient's healthcare proxy reported collateral. She says he has not been taking medications consistently has been very disorganized, has destroyed the apartment that she and her own and pay for, including smashing several television sets, multiple cell phones, refrigerators and other appliances and items, taking off all the door in the apartments (she provided pictures); she says he has been disorganized, not showering at all attending to ADLs, acting confused, and doing strange things such as snorting salt... Patient yelling at her, demanding things such as groceries which she buys and which he then proceeds to throwing the trash... Formulation/clinical reasoning: Patient has well documented history of schizoaffective disorder, bipolar type. Patient had very similar presentation on his last admission January 2024, but responded well with p.o. Risperdal and then on long-acting Risperdal product Uzedy (also on Wellbutrin XL 150 mg), organized, attending to ADLs, in good behavioral and impulse control and even developed some limited insight, briefly acknowledging that he did have paranoid delusions and auditory hallucinations prior to taking medication... However, patient has a long history of medication non-adherence and decompensation which is again resulting in need for psychiatric hospitalization. On the unit, he is with odd behaviors and malodorous (patient did ask for and ostensibly took a shower but emerged remaining malodorous and with matted hair). Patient is currently taking a low dose of Risperdal (though intermittently refused); however this dose is inadequate, patient does not want medication adjustments and refuses long-acting inectable Risperdal which is essential to sustained function in the community; he has no insight at all and process description writer is convinced that patient will stop taking medications (or take them inadequately) immediately if he were to discharge. Invoke HCP: Patient has a signed healthcare proxy on file. Patient is disorganized and unable to function in the community; he does not have capacity to make medical decisions for himself and so process description writer will invoke this healthcare proxy. Hospital course: 07/19 Patient difficult with which to engage and denies all psychiatric symptoms. He says I want to get off medication... Balloon Artist shares his family's concerns about his behaviors but patient tells process description writer I was doing good at home... Patient talking to process description writer holding his hand in front of his mouth. At 1 point patient stopped talking to process description writer completely, keeping his eyes closed but then responded later. Patient does not want to stay in the hospital and Balloon Artist informed patient of involuntary commitment and invoking healthcare proxy. Patient's mother present who gave more collateral. She says that after his last discharge, he refused to get long-acting injectable and would not take medication. In March he took a low dose of Risperdal for 2 days but then not again until a couple of weeks later. At that time he took Risperdal 2 mg b.i.d. for 10 days and she reports it was the best days ever... That patient was doing well. However he stopped medication and again became disorganized. She says that patient has destroyed the apartment and shows process description writer multiple pictures of broken televisions, other furniture, flipping over the refrigerator... Patient opened all the drawers throughout the apartment for some reason leaving them open; took off all the anterior doors off the hinges; she says that he broke the furnace somehow and the apartment complex was without heat; now the upstairs Renter is now moving out because does not want to have to deal with the heat going off. She says he took his bed out and put it in the yd; whenever she buys him food he immediately deems it into the trash. She said over the past couple weeks patient has been increasingly agitated and aggressive, once posturing aggressively towards his father; patient angrily threatened his mom yelling leave this house or I'll push you again... , yelling in her face with spittle coming out of his mouth.. Mother says she is scared, felt threatened and left. She said she called the police who know the family; she reports that patient postured aggressively towards 1 of the police officers but because the officer knew him, told his partner to stand down and they thus brought him to the hospital 07/20 pt remains psychotic, talking to himself; patient is difficult with which to engage. Nursing observing patient cheeking Risperdal and spitting out the garbage. Balloon Artist discussed taking Risperdal with patient who has some ambivalence and told process description writer he would take it but then that he did not want it and needed something that would help [him] both sleep and drive... He then said he would take it even it increased dose of 2 mg b.i.d. -Patient remains with bizarre behaviors. Patient does not look at process description writer when talking; during conversation he will intermittently stop talking in the middle of conversation, stare off, sometimes muttering to himself and then restart talking... Patient lining up sugar packets and cards on his bed in specific ways; in the milieu, process description writer observed patient jumping on a chair and hopping around in the kitchen 07/21 Nursing continue to observe patient cheeking Risperdal than spitting it out. Remains difficult with which to engage and will sometimes not respond to process description writer at all. Remains with odd, behaviors and internally preoccupied -switch to liquid Risperdal 07/22 Patient refused liquid Risperdal last night but took it this morning. Patient tells process description writer he will keep taking the Risperdal, since he likes the taste of the liquid Risperdal. Patient remains with disorganized behaviors; patient laughing out loud. Balloon Artist observed patient going into the kitchen, taking something out of the refrigerator, sitting down in a chair and waiting a few sec and then putting it back in the refrigerator; patient would then going to his room, run around his bed and then back into the kitchen to repeat the same behavior. 07/23 remains disorganized, internally pre-occupied. took risperdal last night and today 07/24 Patient remains with very odd behaviors. On approach, patient turns and quickly walks away; process description writer catches up with patient and he is willing to talk but turns at an angle and looks away while talking. He says he is good and that he just wants some paper to draw. Today patient had white sticky substance covering the length of multiple pigtails in his hair; process description writer asked about this and patient said it was tooth paste. Balloon Artist asked what for and patient said I just woke up this way... He then walks away quickly. -has been taking liquid Risperdal; says he likes the limb and flavored 07/25 pt remains disorganized, psychotic. Explained to pt court tomorrow which he was surprised about (though has been informed). Pt asks to switch from risperdal to ADD medication; then asks to switch to happy medication. He likes the idea of restarting Wellbutrin. Patient stops talking to process description writer and attends to internal stimuli, seemingly oblivious to writers presence...conversation never resumes. Instead, pt continues to draw smilie face's and hearts on a piece of paper over and over Impression: pt remains floridly psychotic with disorganized speech and behavior. Patient cannot distinguish reality from delusion. Pt is fully incapable of caring for himself in the community and would not be able to acquire food or nursing home on his own; and on his own he would be vulnerable to predation. He has no insight at all into his psychiatric illness or his need for medication and is only taking Liquid Risperdal since he likes the taste of it. Were patient to discharge today, he would very soon cease taking medication. 07/26 c/o nasal congestion; covid/rsv ordered and negative Pt initially refused Risperdal last night but then took it later on. Pt sitting in room, in dark, drawing something that resembles an equation, he says it's something i might make later on Pt said he wanted to talk about discharge and process description writer reminded him about court today and that the passport support manager would decide; he said he does not want to attend court due to anxiety Court civilly committed patient involuntarily to treatment with substituted judgment -will start with Uzedy 100mg; this will last for 1 month; anticipating it will take patient at least 1 month to stabilize; plan will be to give patient Uzedy 200mg prior to leaving which will give him a longer period of stability in the community 07/27: Active on unit. guarded. Pt responding with one word answers to questions. Patient reports feeling fine ; pt was informed of Uzedy injection ordered for today. Pt did not acknowledge T/W and proceeded to close eyes. Pt was encouraged to inform RN if he has any questions. 07/28 seems more withdrawn today-one word answers to nursing, questioning provider re dc- CTP 07/29 - better more engagable- talking getting up getting meals= needs adls- CTP 07/30 pt a little more organized in that has conversation for longer. He says he got the shot (ANDRE of risperdal) and is wondering when he can go home. He currently accepts that this can be discussed with him and parents but would like to see pt closer to his regular self. Pt says he is suicidal and can he get on the antidepressant wellbutrin. No plans or intentions, just thoughts but really wants to -start - wellbutrin -still no shower, and disheveled, internally pre-occupied and no insight -start Wellbutrin; pt stable enough continue po risperdal for couple days especially now starting wellbutrin; will soon dc 07/31 SI resolved. although some improvement patient remains disorganized and starts off saying at home he has nothing to do except for singing, dancing and having business ideas... Mom present Discussed mom's concern with Wellbutrin XL causing too much energy verses the SR. Pt however likes the long acting XL 150mg since it lasts all day long. Had the same conversation with mom last admission when patient then also waned 150mg and disagreed with this mom's perspective; that time as now, process description writer, staff do not notice any negative effect. he felt that 100mg did not help his mood enough and did not last as long -Patient had moment of insight and said my tyoughts are too mixed up in my head where i'm not sure what's real anymore....is risperdaone the right medicine? then i'll stay on it...i get lost in this imaginary world -However moments later he said i don't think i have anything (any psych illness) and repeated he does not feel he 08/01Remains disorganized with behavior, internally preoccupied, odd, dancing around the unit; talking to himself at length. met with his mother and patient says he is fine with her being his healthcare proxy in making medical decisions. Patient denies all psychiatric illness and does not think he has a psychiatric problem or that he needs medications. Asks if he can go home today, temporarily accepting that he can not 08/02 Patient wanted Wellbutrin to be discontinued, saying it makes him anxious and that he feels better without it. Also that he likes Seroquel which was started for anxiety and says this is helping. Patient says he is fine asks for discharge but temporarily accept not possible. Remains internally preoccupied talking himself 08/03 Patient asks for Concerta which he says he was on as an adolescent, something to help him focus and to help his mood. Balloon Artist explained what this medication is not currently possible however revisited the idea Wellbutrin. Patient wanted to be back on Wellbutrin but not the long-acting 1, instead the immediate release to which process description writer agreed. Patient again asked for discharge home. Balloon Artist explained why he is not ready with which patient is agreed. Balloon Artist tried some reality testing, reminding patient that he destroyed the apartment he was living in; patient denied this. Balloon Artist explained that his mother had numerous pictures about it and patient said he disagreed but that that is in the past. 08/04: Continue current plans and regimen 08/05: Continue current regimen and plans Impression: Patient remains without any insight at all. He is disorganized and can only remain appropriate for brief interactions. Patient where he would be discharged will not take medications, will not get next long-acting injectable and will remain psychotic, disorganized and unable to function on his own. 08/06 remains without insight; continue current treatment plan 08/07 Patient confused; he keeps asking for Wellbutrin to be discontinued and then to be restarted. He is asking for it to be restarted with the long-acting now. Patient remains briefly able to happen organized discussion but quickly becomes anxious, internally preoccupied. Patient can not seem to talk about psychotic symptoms and on process description writer's inquiry, denies any history of psychotic symptoms including his bizarre and disorganized behavior at home resulting in significant damage to his apartment. -patient continues to ask for Concerta despite having had numerous conversations with process description writer about this; it is process description writer's opinion that patient is being directed by auditory hallucinations regarding Concerta and Wellbutrin 08/08 Patient approaches process description writer to say that he does not think he has a psychiatric illness at all, that he has had no psychotic symptoms however and he just has anxiety. He says he does not think he needs Risperdal and that he will absolutely not take it after he is discharged. Balloon Artist tries to share with him his behaviors when he is off this medication again referring to damaging his apartment however patient explains this by saying it was his 1st apartment, out in his own; then he says he is just a kid though process description writer reminds him that he is 28 years old and that this is not normal behavior. Patient says he disagrees and reiterates that he does not think he needs Risperdal and that he will not be taking it on discharge. 08/09 he refused Wellbutrin; remains change his mind about medications throughout the day; internally preoccupied; confused 08/10 Patient talking about how he does not need Risperdal, does not think he has a psychiatric illness at all; will not take Risperdal on DC; just wants Concerta. Patient not attending to ADLs; malodorous; internally preoccupied 08/11 Today for the 1st time patient acknowledged that he had auditory hallucinations and that he was feeling scared; he himself asked for risperidone p.o.. Patient would not discuss further. Patient later refused risperidone p.o. saying that he wants something for anger, not anxiety... 08/12 Patient continues to be paranoid and anxious with psychotic confusion. Patient himself expressing as much and says that the Risperdal shot is not a high enough dose and should be increased when he gets it next. Patient has been asking for risperidone p.o. and is now asking for it to be scheduled with which process description writer agrees Balloon Artist agrees that current dose of long-acting injectable is either not high enough or has not become effective enough in patient requires additional risperidone to stabilize 08/13 Patient came to ask process description writer for increasing Wellbutrin saying he wants to go to 300 mg and says he feels he needs it to help with his mood. Patient remains guarded around talking about psychotic symptoms but says he likes that the p.o. Risperdal was scheduled has been taking it. Balloon Artist talked about risks of increasing Wellbutrin but patient says he wants to try. -regarding request for Concerta, given patient's continued psychotic symptoms, Concerta risks exacerbating his psychosis and increasing agitation and pushing towards k[place].. At this time he is not stable on current Uzedy dose. Once patient's psychotic symptoms becomes stabilized, consider can become an option. -it has become increasingly obvious that patient is chasing after symptoms he has a hard time discussing or even identifying; in his psychotic confusion he is asking for changes every day regarding medication. In order to preserve as much autonomy as possible for this patient, process description writer has allowed him have say in decision-making regarding medications like Wellbutrin and PRNs. What has become clear however is what he needs is in increase in Risperdal and that Uzedy 100mg qmonth is not enough. 08/14 patient remains with psychotic symptoms and he himself asks for increase in Risperdal p.o. dose to 3 times a day with which process description writer agrees and feels is necessary as his psychotic symptoms continue. Patient also asks for increase in dose of his p.r.n. Seroquel and hydroxyzine. Balloon Artist will inquire with pharmacist regarding increasing Uzedy dose. Impression: Patient remains without any insight at all; he remains with psychotic symptoms, internally preoccupied, odd behaviors, talking to himself. Although he can not discuss her acknowledges these things he is certainly suffering from them and expresses his anxiety. Patient also has psychotic confusion, confused due to internal preoccupations and very likely AH, to the point where patient has nearly the same conversation with process description writer every day and daily changes his mind about how he feels about very small medication changes. Patient received long- acting Risperdal on 07/27, and as it approaches time for next dosing, it appears that this dose is too low (and less likely that it is simply a matter of this dose not having reached his full therapeutic effect). Patient needs Risperdal p.o.. Currently he is amenable to it so will not enforce court order at this time, trying to give him some buy-in; however if he starts to refuse it will need to apply court order. Will need to review to see if Risperdal Uzedy dose can be increased Plan: Section 8/ patient involuntary committed with substituted judgment Healthcare proxy affirmed Q 15 minute checks Medications: Risperdal liquid p.o. 1 mg t.i.d. Seroquel p.r.n. for anxiety +/-Wellbutrin based on pt; ER 150mg daily (pt request this instead of Wellbutrin IR 75 mg daily) Pending: Risperdal Uzedy 200 mg on 08/22/24 (on 07/27 received Risperdal Uzedy 100 mg) DC Risperdal (liquid) 2 mg b.i.d. will start up again if psychosis worsens -Prior to DC, after 30 days will follow-up with Risperdal Uzedy 200 mg Past med trials: Vraylar: Did not seem to work Medications on Court-ordered substituted judgment: Risperdal up to 6 mg Uzedy up to 200 mg q.2 months Clozaril Zyprexa Paliperidone/Invega including Trinza Ziprasidone Depakote Patient educated on: diagnosis and medication risk/benefits Informed Consent: does not understand Reason for continued inpatient stay Substantial Risk for: inability to function Time Spent With Patient Time: Total time managing care of this patient today ____ minutes.
[2024-08-15 08:33] VITALS: BP 90/55; PULSE 68; RESP 16; TEMP 36.6; O2SAT 96
[2024-08-15] MEDS: Nicotine 21 MG PATCH.TD24 TRANSDERMA (10:21)
[2024-08-15] MEDS: Nicotine Polacrilex 2 MG GUM 4 MG BUCCAL ×2 (10:21→14:47)
--- NOTE | 2024-08-15 11:36 | P.PNPSI_ITS ---
Subjective Subjective Date of Service: 08/15/24 Reason For Visit: Schizoaffective Disorder, bipolar type Interim History: met with pt; discussed with team; family meeting with mother Patient briefly acknowledged that he did have auditory hallucinations but but not discuss it at all. At 1 point, patient stopped talking mid conversation and was clearly internally preoccupied; he was unaware that typewriters functional tester and mother were watching him waiting for him to come out of it. He agreed that he needs increase risperidone and agreed to take it consistently. Patient remains very disorganized in his thinking; he went back and forth, asking for Wellbutrin to be started and then stopped, over and over, changing his mind for various unclear reasons. Patient then pleading to be started on Concerta and could not seem to accept the reasons why this was not an option right now, as it could aggravate already problematic psychotic symptoms. Patient and Patient's mother agreed with plan to increase long-acting injectable Risperdal to 125 mg q.month next week when it comes due. Mental Status Exam Mental Status Exam Narrative: Pt is alert and oriented; behavior is cooperative, mostly calm; still odd behaviors, talking to himself, laughing at inappropriate times; can only tolerate short interactions; patient is not in distress; dressed in casual attire, messy hair and disheveled, malodorous; mood is described as ok and affect anxious; eye contact improved but still looks away; Speech is normal volume and rate; some mild psychomotor agitation; thought process is more goal directed but concrete; Thought content is perseverative medication changes, on discharge, internally preoccupied; frequently asks about, Concerta; internally preoccupied; does not think he has a psychiatric illness; denies SI; no intent; no HI; Denies AVH however patient is consistently responding to internal stimuli. Patients insight and judgment impaired. Diagnostics Vital Signs (24Hr): Vital Signs - 24 hr 08/14/24 12:41 08/15/24 08:33 Temperature 98 F Pulse Rate 68 Respiratory Rate 16 Blood Pressure 108/70 90/55 L Pulse Oximetry 96 Oxygen Delivery Method Room Air BMI result Body Mass Index 28.7 Labs 07/17/24 14:49 07/26/24 16:18 Medications Medications Current Medications Acetaminophen (Acetaminophen 325 Mg Tablet) 650 mg PO Q6H PRN PRN Reason: Headache/Pain, Scale 1-10 Al Hydroxide/Mg Hydroxide (Magnesium Hydrox/Alum Hydrox 30 Ml Oral.Susp) 30 ml PO Q6H PRN PRN Reason: Heartburn/Nausea Clonidine HCl (Clonidine Hcl 0.1 Mg Tablet) 0.1 mg PO Q4H PRN; Protocol PRN Reason: Anxiety Last Admin: 08/14/24 12:41 Dose: 0.1 mg Hydroxyzine HCl (Hydroxyzine Hcl 50 Mg Tablet) 50 mg PO Q6H PRN PRN Reason: mild anxiety/insomnia Last Admin: 08/14/24 16:10 Dose: 50 mg Magnesium Hydroxide (Milk Of Magnesia 30 Ml Oral.Susp) 30 ml PO DAILY PRN PRN Reason: Constipation Nicotine (Nicotine 21 Mg Patch.Td24) 21 mg TRANSDERMA DAILY PRN PRN Reason: smoking cessation Last Admin: 08/15/24 10:21 Dose: 21 mg Nicotine Polacrilex (Nicotine Polacrilex 2 Mg Gum) 4 mg BUCCAL Q2H PRN PRN Reason: Nicotine Cravings Last Admin: 08/15/24 10:21 Dose: 4 mg Quetiapine Fumarate (Quetiapine Fumarate 50 Mg Tablet) 50 mg PO QID PRN PRN Reason: mod to severe anxiety Last Admin: 08/14/24 16:10 Dose: 50 mg Risperidone (Risperidone 1 Mg Tablet) 1 mg PO Q4H PRN PRN Reason: AH/agitation Last Admin: 08/14/24 16:41 Dose: 1 mg Risperidone (Risperidone Oral Karen 1 Mg/Ml Solution) 1 mg PO TID JESSICA Last Admin: 08/15/24 09:01 Dose: Not Given Sodium Chloride (Sodium Chloride 0.65 % Nasal 44 Ml Sprbtl) 1 spray NOSTRIL-B Q1H PRN PRN Reason: Congestion Trazodone HCl (Trazodone Hcl 50 Mg Tablet) 50 mg PO BEDTIME PRN PRN Reason: Insomnia Last Admin: 07/31/24 20:35 Dose: 50 mg Allergies Allergies Allergy/AdvReac Type Severity Reaction Status Date / Time strawberry Allergy Mild Itching Verified 07/17/24 14:35 cefazolin Allergy Unknown Itching Verified 07/17/24 14:35 sulfamethoxazole Allergy Unknown Itching Verified 07/17/24 14:35 [From Bactrim] trimethoprim [From Bactrim] Allergy Unknown Itching Verified 07/17/24 14:35 lorazepam [From Ativan] AdvReac Agitated Verified 07/17/24 14:35 lithium AdvReac Unknown other Uncoded 11/29/23 21:03 Assessment & Plan Assessment & Plan (1) Schizoaffective disorder, bipolar type: Status: Acute Code(s): F25.0 - Schizoaffective disorder, bipolar type (2) Anxiety: Status: Chronic Code(s): F41.9 - Anxiety disorder, unspecified Plan HPI: Patient is a 28-year-old male with history of schizoaffective disorder, bipolar type, history of polysubstance abuse who presents via EMS for manic and delusional behaviors. Patient is a poor historian, lying in bed, not opening his eyes, and offering little information. Initially, patient was talking with the nurse but 1 minute later, as soon as typewriters functional tester walked in to talk with patient, he kept his eyes closed and refused to respond at all to typewriters functional tester. A little later on on re-approached, patient is willing to briefly engage. He says that he is doing good. On inquiry, he says I have no idea why he is here in the hospital; typewriters functional tester shared that his parents felt he was unsafe, disorganized and destroying property which he denies, even though typewriters functional tester mentioned that his mother showed pictures of damaging his apartment. Patient refuses to sign in and remains on a 12 B. Patient took risperidone (he initially spit it out but then took it) this morning and says he will keep taking it but refuses the long- acting injectable. he denies any AVH, SI or HI. Patient's mother, Patsy who is also patient's healthcare proxy reported collateral. She says he has not been taking medications consistently has been very disorganized, has destroyed the apartment that she and her own and pay for, including smashing several television sets, multiple cell phones, refrigerators and other appliances and items, taking off all the door in the apartments (she provided pictures); she says he has been disorganized, not showering at all attending to ADLs, acting confused, and doing strange things such as snorting salt... Patient yelling at her, demanding things such as groceries which she buys and which he then proceeds to throwing the trash... Formulation/clinical reasoning: Patient has well documented history of schizoaffective disorder, bipolar type. Patient had very similar presentation on his last admission January 2024, but responded well with p.o. Risperdal and then on long-acting Risperdal product Uzedy (also on Wellbutrin XL 150 mg), organized, attending to ADLs, in good behavioral and impulse control and even developed some limited insight, briefly acknowledging that he did have paranoid delusions and auditory hallucinations prior to taking medication... However, patient has a long history of medication non-adherence and decompensation which is again resulting in need for psychiatric hospitalization. On the unit, he is with odd behaviors and malodorous (patient did ask for and ostensibly took a shower but emerged remaining malodorous and with matted hair). Patient is currently taking a low dose of Risperdal (though intermittently refused); however this dose is inadequate, patient does not want medication adjustments and refuses long-acting inectable Risperdal which is essential to sustained function in the community; he has no insight at all and typewriters functional tester is convinced that patient will stop taking medications (or take them inadequately) immediately if he were to discharge. Invoke HCP: Patient has a signed healthcare proxy on file. Patient is disorganized and unable to function in the community; he does not have capacity to make medical decisions for himself and so typewriters functional tester will invoke this healthcare proxy. Hospital course: / Patient difficult with which to engage and denies all psychiatric symptoms. He says I want to get off medication... Activities Concierge shares his family's concerns about his behaviors but patient tells typewriters functional tester I was doing good at home... Patient talking to typewriters functional tester holding his hand in front of his mouth. At 1 point patient stopped talking to typewriters functional tester completely, keeping his eyes closed but then responded later. Patient does not want to stay in the hospital and Activities Concierge informed patient of involuntary commitment and invoking healthcare proxy. Patient's mother present who gave more collateral. She says that after his last discharge, he refused to get long-acting injectable and would not take medication. In March he took a low dose of Risperdal for 2 days but then not again until a couple of weeks later. At that time he took Risperdal 2 mg b.i.d. for 10 days and she reports it was the best days ever... That patient was doing well. However he stopped medication and again became disorganized. She says that patient has destroyed the apartment and shows typewriters functional tester multiple pictures of broken televisions, other furniture, flipping over the refrigerator... Patient opened all the drawers throughout the apartment for some reason leaving them open; took off all the anterior doors off the hinges; she says that he broke the furnace somehow and the apartment complex was without heat; now the upstairs Renter is now moving out because does not want to have to deal with the heat going off. She says he took his bed out and put it in the yd; whenever she buys him food he immediately deems it into the trash. She said over the past couple weeks patient has been increasingly agitated and aggressive, once posturing aggressively towards his father; patient angrily threatened his mom yelling leave this house or I'll push you again... , yelling in her face with spittle coming out of his mouth.. Mother says she is scared, felt threatened and left. She said she called the police who know the family; she reports that patient postured aggressively towards 1 of the police officers but because the officer knew him, told his partner to stand down and they thus brought him to the hospital 07/20 pt remains psychotic, talking to himself; patient is difficult with which to engage. Nursing observing patient cheeking Risperdal and spitting out the garbage. Activities Concierge discussed taking Risperdal with patient who has some ambivalence and told typewriters functional tester he would take it but then that he did not want it and needed something that would help [him] both sleep and drive... He then said he would take it even it increased dose of 2 mg b.i.d. -Patient remains with bizarre behaviors. Patient does not look at typewriters functional tester when talking; during conversation he will intermittently stop talking in the middle of conversation, stare off, sometimes muttering to himself and then restart talking... Patient lining up sugar packets and cards on his bed in specific ways; in the milieu, typewriters functional tester observed patient jumping on a chair and hopping around in the kitchen 07/21 Nursing continue to observe patient cheeking Risperdal than spitting it out. Remains difficult with which to engage and will sometimes not respond to typewriters functional tester at all. Remains with odd, behaviors and internally preoccupied -switch to liquid Risperdal 07/22 Patient refused liquid Risperdal last night but took it this morning. Patient tells typewriters functional tester he will keep taking the Risperdal, since he likes the taste of the liquid Risperdal. Patient remains with disorganized behaviors; patient laughing out loud. Activities Concierge observed patient going into the kitchen, taking something out of the refrigerator, sitting down in a chair and waiting a few sec and then putting it back in the refrigerator; patient would then going to his room, run around his bed and then back into the kitchen to repeat the same behavior. 07/23 remains disorganized, internally pre-occupied. took risperdal last night and today 07/24 Patient remains with very odd behaviors. On approach, patient turns and quickly walks away; typewriters functional tester catches up with patient and he is willing to talk but turns at an angle and looks away while talking. He says he is good and that he just wants some paper to draw. Today patient had white sticky substance covering the length of multiple pigtails in his hair; typewriters functional tester asked about this and patient said it was tooth paste. Activities Concierge asked what for and patient said I just woke up this way... He then walks away quickly. -has been taking liquid Risperdal; says he likes the limb and flavored 07/25 pt remains disorganized, psychotic. Explained to pt court tomorrow which he was surprised about (though has been informed). Pt asks to switch from risperdal to ADD medication; then asks to switch to happy medication. He likes the idea of restarting Wellbutrin. Patient stops talking to typewriters functional tester and attends to internal stimuli, seemingly oblivious to writers presence...conversation never resumes. Instead, pt continues to draw smilie face's and hearts on a piece of paper over and over Impression: pt remains floridly psychotic with disorganized speech and behavior. Patient cannot distinguish reality from delusion. Pt is fully incapable of caring for himself in the community and would not be able to acquire food or snf on his own; and on his own he would be vulnerable to predation. He has no insight at all into his psychiatric illness or his need for medication and is only taking Liquid Risperdal since he likes the taste of it. Were patient to discharge today, he would very soon cease taking medication. 07/26 c/o nasal congestion; covid/rsv ordered and negative Pt initially refused Risperdal last night but then took it later on. Pt sitting in room, in dark, drawing something that resembles an equation, he says it's something i might make later on Pt said he wanted to talk about discharge and typewriters functional tester reminded him about court today and that the weather strip mechanic would decide; he said he does not want to attend court due to anxiety Court civilly committed patient involuntarily to treatment with substituted judgment -will start with Uzedy 100mg; this will last for 1 month; anticipating it will take patient at least 1 month to stabilize; plan will be to give patient Uzedy 200mg prior to leaving which will give him a longer period of stability in the community 07/27: Active on unit. guarded. Pt responding with one word answers to questions. Patient reports feeling fine ; pt was informed of Uzedy injection ordered for today. Pt did not acknowledge T/W and proceeded to close eyes. Pt was encouraged to inform RN if he has any questions. 07/28 seems more withdrawn today-one word answers to nursing, questioning provider re dc- CTP 07/29 - better more engagable- talking getting up getting meals= needs adls- CTP 07/30 pt a little more organized in that has conversation for longer. He says he got the shot (ANDRE of risperdal) and is wondering when he can go home. He currently accepts that this can be discussed with him and parents but would like to see pt closer to his regular self. Pt says he is suicidal and can he get on the antidepressant wellbutrin. No plans or intentions, just thoughts but really wants to -start - wellbutrin -still no shower, and disheveled, internally pre-occupied and no insight -start Wellbutrin; pt stable enough continue po risperdal for couple days especially now starting wellbutrin; will soon dc 07/31 SI resolved. although some improvement patient remains disorganized and starts off saying at home he has nothing to do except for singing, dancing and having business ideas... Mom present Discussed mom's concern with Wellbutrin XL causing too much energy verses the SR. Pt however likes the long acting XL 150mg since it lasts all day long. Had the same conversation with mom last admission when patient then also waned 150mg and disagreed with this mom's perspective; that time as now, typewriters functional tester, staff do not notice any negative effect. he felt that 100mg did not help his mood enough and did not last as long -Patient had moment of insight and said my tyoughts are too mixed up in my head where i'm not sure what's real anymore....is risperdaone the right medicine? then i'll stay on it...i get lost in this imaginary world -However moments later he said i don't think i have anything (any psych illness) and repeated he does not feel he 08/01Remains disorganized with behavior, internally preoccupied, odd, dancing around the unit; talking to himself at length. met with his mother and patient says he is fine with her being his healthcare proxy in making medical decisions. Patient denies all psychiatric illness and does not think he has a psychiatric problem or that he needs medications. Asks if he can go home today, temporarily accepting that he can not 08/02 Patient wanted Wellbutrin to be discontinued, saying it makes him anxious and that he feels better without it. Also that he likes Seroquel which was started for anxiety and says this is helping. Patient says he is fine asks for discharge but temporarily accept not possible. Remains internally preoccupied talking himself 08/03 Patient asks for Concerta which he says he was on as an adolescent, something to help him focus and to help his mood. Activities Concierge explained what this medication is not currently possible however revisited the idea Wellbutrin. Patient wanted to be back on Wellbutrin but not the long-acting 1, instead the immediate release to which typewriters functional tester agreed. Patient again asked for discharge home. Activities Concierge explained why he is not ready with which patient is agreed. Activities Concierge tried some reality testing, reminding patient that he destroyed the apartment he was living in; patient denied this. Activities Concierge explained that his mother had numerous pictures about it and patient said he disagreed but that that is in the past. 4/19: Continue current plans and regimen 08/05: Continue current regimen and plans Impression: Patient remains without any insight at all. He is disorganized and can only remain appropriate for brief interactions. Patient where he would be discharged will not take medications, will not get next long-acting injectable and will remain psychotic, disorganized and unable to function on his own. 08/06 remains without insight; continue current treatment plan 08/07 Patient confused; he keeps asking for Wellbutrin to be discontinued and then to be restarted. He is asking for it to be restarted with the long-acting now. Patient remains briefly able to happen organized discussion but quickly becomes anxious, internally preoccupied. Patient can not seem to talk about psychotic symptoms and on typewriters functional tester's inquiry, denies any history of psychotic symptoms including his bizarre and disorganized behavior at home resulting in significant damage to his apartment. -patient continues to ask for Concerta despite having had numerous conversations with typewriters functional tester about this; it is typewriters functional tester's opinion that patient is being directed by auditory hallucinations regarding Concerta and Wellbutrin 08/08 Patient approaches typewriters functional tester to say that he does not think he has a psychiatric illness at all, that he has had no psychotic symptoms however and he just has anxiety. He says he does not think he needs Risperdal and that he will absolutely not take it after he is discharged. Activities Concierge tries to share with him his behaviors when he is off this medication again referring to damaging his apartment however patient explains this by saying it was his 1st apartment, out in his own; then he says he is just a kid though typewriters functional tester reminds him that he is 28 years old and that this is not normal behavior. Patient says he disagrees and reiterates that he does not think he needs Risperdal and that he will not be taking it on discharge. 08/09 he refused Wellbutrin; remains change his mind about medications throughout the day; internally preoccupied; confused 08/10 Patient talking about how he does not need Risperdal, does not think he has a psychiatric illness at all; will not take Risperdal on DC; just wants Concerta. Patient not attending to ADLs; malodorous; internally preoccupied 08/11 Today for the 1st time patient acknowledged that he had auditory hallucinations and that he was feeling scared; he himself asked for risperidone p.o.. Patient would not discuss further. Patient later refused risperidone p.o. saying that he wants something for anger, not anxiety... 08/12 Patient continues to be paranoid and anxious with psychotic confusion. Patient himself expressing as much and says that the Risperdal shot is not a high enough dose and should be increased when he gets it next. Patient has been asking for risperidone p.o. and is now asking for it to be scheduled with which typewriters functional tester agrees Activities Concierge agrees that current dose of long-acting injectable is either not high enough or has not become effective enough in patient requires additional risperidone to stabilize 08/13 Patient came to ask typewriters functional tester for increasing Wellbutrin saying he wants to go to 300 mg and says he feels he needs it to help with his mood. Patient remains guarded around talking about psychotic symptoms but says he likes that the p.o. Risperdal was scheduled has been taking it. Activities Concierge talked about risks of increasing Wellbutrin but patient says he wants to try. -regarding request for Concerta, given patient's continued psychotic symptoms, Concerta risks exacerbating his psychosis and increasing agitation and pushing towards k[place].. At this time he is not stable on current Uzedy dose. Once patient's psychotic symptoms becomes stabilized, consider can become an option. -it has become increasingly obvious that patient is chasing after symptoms he has a hard time discussing or even identifying; in his psychotic confusion he is asking for changes every day regarding medication. In order to preserve as much autonomy as possible for this patient, typewriters functional tester has allowed him have say in decision-making regarding medications like Wellbutrin and PRNs. What has become clear however is what he needs is in increase in Risperdal and that Uzedy 100mg qmonth is not enough. 08/14 patient remains with psychotic symptoms and he himself asks for increase in Risperdal p.o. dose to 3 times a day with which typewriters functional tester agrees and feels is necessary as his psychotic symptoms continue. Patient also asks for increase in dose of his p.r.n. Seroquel and hydroxyzine. Activities Concierge will inquire with pharmacist regarding increasing Uzedy dose. 08/15 Patient briefly acknowledged that he did have auditory hallucinations but but not discuss it at all. At 1 point, patient stopped talking mid conversation and was clearly internally preoccupied; he was unaware that typewriters functional tester and mother were watching him waiting for him to come out of it. He agreed that he needs increase risperidone and agreed to take it consistently. Patient remains very disorganized in his thinking; he went back and forth, asking for Wellbutrin to be started and then stopped, over and over, changing his mind for various unclear reasons. Patient then pleading to be started on Concerta and could not seem to accept the reasons why this was not an option right now, as it could aggravate already problematic psychotic symptoms. Patient and Patient's mother agreed with plan to increase long-acting injectable Risperdal to 125 mg q.month next week when it comes due. -Discussed case with pharmacist and Risperdal Uzedy dose can be increased to 125 mg q.month (or 250 mg q.2 months). Impression: Patient remains without any insight at all; he remains with psychotic symptoms, internally preoccupied, odd behaviors, talking to himself. Although he can not discuss her acknowledges these things he is certainly suffering from them and expresses his anxiety. 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 Patient received long- acting Risperdal on 07/27, and as it approaches time for next dosing, it appears that this dose is too low (and less likely that it is simply a matter of this dose not having reached his full therapeutic effect). Patient needs Risperdal p.o.. Currently he is amenable to it so will not enforce court order at this time, trying to give him some buy-in; however if he starts to refuse it will need to apply court order. Discussed case with pharmacist and Risperdal Uzedy dose can be increased to 125 mg q.month (or 250 mg q.2 months). Plan: Section 8/ patient involuntary committed with substituted judgment Healthcare proxy affirmed Q 15 minute checks Medications: Risperdal liquid p.o. 2 mg b.i.d.; COURT-ORDERED Seroquel p.r.n. for anxiety +/-Wellbutrin based on pt; ER 150mg daily (pt request this instead of Wellbutrin IR 75 mg daily) Pending: Risperdal Uzedy 125mg on 08/22/24 (on 07/27 received Risperdal Uzedy 100 mg) Past med trials: Vraylar: Did not seem to work Medications on Court-ordered substituted judgment: Risperdal up to 6 mg Uzedy up to 200 mg q.2 months Clozaril Zyprexa Paliperidone/Invega including Trinza Ziprasidone Depakote Patient educated on: diagnosis, medication risk/benefits and therapeutic strategies Informed Consent: understands, does not understand and further education needed Reason for continued inpatient stay Substantial Risk for: rapid decompensation and med/psych decompensation Time Spent With Patient Time: Total time managing care of this patient today ____ minutes.
[2024-08-15] MEDS: risperiDONE Oral Sol 1 MG/ML SOLUTION PO ×2 (11:57→14:21)
[2024-08-15] MEDS: risperiDONE 1 MG TABLET PO (12:56)
[2024-08-15] MEDS: hydrOXYzine HCL 50 MG TABLET PO (14:24)
[2024-08-15] MEDS: QUEtiapine Fumarate 50 MG TABLET PO (14:25)
[2024-08-15] MEDS: buPROPion HCL 75 MG TABLET PO (15:52)
[2024-08-15 19:22] VITALS: BP 108/63; PULSE 68; TEMP 36.3; O2SAT 97
[2024-08-15] MEDS: risperiDONE Oral Sol 1 MG/ML SOLUTION 2 MG PO (19:59)
[2024-08-16 07:00] VITALS: BMI 28.3
[2024-08-16 08:14] VITALS: BP 109/56; PULSE 61; RESP 16; TEMP 36.7; O2SAT 98
[2024-08-16] MEDS: buPROPion HCL 75 MG TABLET PO (08:18)
[2024-08-16] MEDS: risperiDONE Oral Sol 1 MG/ML SOLUTION 2 MG PO ×2 (08:18→17:05)
[2024-08-16] MEDS: Nicotine Polacrilex 2 MG GUM 4 MG BUCCAL ×2 (17:05→19:25)
--- NOTE | 2024-08-16 19:15 | P.PNPSI_ITS ---
Subjective Subjective Date of Service: 08/16/24 Reason For Visit: Schizoaffective Disorder, bipolar type Interim History: Met with patient; discussed with team A little more calm today. Patient said he took the Wellbutrin and of course the risperidone and feels like it was a good match. He said he feels that is better than Concerta and is fine to remain on this regimen Mental Status Exam Mental Status Exam Narrative: Pt is alert and oriented; behavior is cooperative, mostly calm; still odd behaviors, talking to himself, laughing at inappropriate times; can only tolerate short interactions; patient is not in distress; dressed in casual attire, messy hair and disheveled, malodorous; mood is described as ok and affect anxious; eye contact improved but still looks away; Speech is normal volume and rate; some mild psychomotor agitation; thought process is more goal directed but concrete; Thought content is perseverative medication changes, on discharge, internally preoccupied; frequently asks about, Concerta; internally preoccupied; does not think he has a psychiatric illness; denies SI; no intent; no HI; Denies AVH however patient is consistently responding to internal stimuli. Patients insight and judgment impaired. Diagnostics Vital Signs (24Hr): Vital Signs - 24 hr 08/15/24 19:22 08/16/24 08:14 Temperature 97.3 F 98.1 F Pulse Rate 68 61 Respiratory Rate 16 Blood Pressure 108/63 109/56 L Pulse Oximetry 97 98 Oxygen Delivery Method Room Air Room Air BMI result Body Mass Index 28.3 Labs 07/17/24 14:49 07/26/24 16:18 Medications Medications Current Medications Acetaminophen (Acetaminophen 325 Mg Tablet) 650 mg PO Q6H PRN PRN Reason: Headache/Pain, Scale 1-10 Al Hydroxide/Mg Hydroxide (Magnesium Hydrox/Alum Hydrox 30 Ml Oral.Susp) 30 ml PO Q6H PRN PRN Reason: Heartburn/Nausea Bupropion HCl (Bupropion Hcl 75 Mg Tablet) 75 mg PO DAILY JESSICA Last Admin: 08/16/24 08:18 Dose: 75 mg Clonidine HCl (Clonidine Hcl 0.1 Mg Tablet) 0.1 mg PO Q4H PRN; Protocol PRN Reason: Anxiety Last Admin: 08/14/24 12:41 Dose: 0.1 mg Hydroxyzine HCl (Hydroxyzine Hcl 50 Mg Tablet) 50 mg PO Q6H PRN PRN Reason: mild anxiety/insomnia Last Admin: 08/15/24 14:24 Dose: 50 mg Magnesium Hydroxide (Milk Of Magnesia 30 Ml Oral.Susp) 30 ml PO DAILY PRN PRN Reason: Constipation Nicotine (Nicotine 21 Mg Patch.Td24) 21 mg TRANSDERMA DAILY PRN PRN Reason: smoking cessation Last Admin: 08/15/24 10:21 Dose: 21 mg Nicotine Polacrilex (Nicotine Polacrilex 2 Mg Gum) 4 mg BUCCAL Q2H PRN PRN Reason: Nicotine Cravings Last Admin: 08/16/24 17:05 Dose: 4 mg Quetiapine Fumarate (Quetiapine Fumarate 50 Mg Tablet) 50 mg PO QID PRN PRN Reason: mod to severe anxiety Last Admin: 08/15/24 14:25 Dose: 50 mg Risperidone (Risperidone 0.5 Mg Tablet) 0.5 mg PO TID PRN PRN Reason: AH/agitation Risperidone (Risperidone Oral Karen 1 Mg/Ml Solution) 2 mg PO BID@0900,1700 JESSICA Last Admin: 08/16/24 17:05 Dose: 2 mg Sodium Chloride (Sodium Chloride 0.65 % Nasal 44 Ml Sprbtl) 1 spray NOSTRIL-B Q1H PRN PRN Reason: Congestion Trazodone HCl (Trazodone Hcl 50 Mg Tablet) 50 mg PO BEDTIME PRN PRN Reason: Insomnia Last Admin: 07/31/24 20:35 Dose: 50 mg Allergies Allergies Allergy/AdvReac Type Severity Reaction Status Date / Time strawberry Allergy Mild Itching Verified 07/17/24 14:35 cefazolin Allergy Unknown Itching Verified 07/17/24 14:35 sulfamethoxazole Allergy Unknown Itching Verified 07/17/24 14:35 [From Bactrim] trimethoprim [From Bactrim] Allergy Unknown Itching Verified 07/17/24 14:35 lorazepam [From Ativan] AdvReac Agitated Verified 07/17/24 14:35 lithium AdvReac Unknown other Uncoded 11/29/23 21:03 Assessment & Plan Assessment & Plan (1) Schizoaffective disorder, bipolar type: Status: Acute Code(s): F25.0 - Schizoaffective disorder, bipolar type (2) Anxiety: Status: Chronic Code(s): F41.9 - Anxiety disorder, unspecified Plan HPI: Patient is a 28-year-old male with history of schizoaffective disorder, bipolar type, history of polysubstance abuse who presents via EMS for manic and delusional behaviors. Patient is a poor historian, lying in bed, not opening his eyes, and offering little information. Initially, patient was talking with the nurse but 1 minute later, as soon as field underwriter walked in to talk with patient, he kept his eyes closed and refused to respond at all to field underwriter. A little later on on re-approached, patient is willing to briefly engage. He says that he is doing good. On inquiry, he says I have no idea why he is here in the hospital; field underwriter shared that his parents felt he was unsafe, disorganized and destroying property which he denies, even though field underwriter mentioned that his mother showed pictures of damaging his apartment. Patient refuses to sign in and remains on a 12 B. Patient took risperidone (he initially spit it out but then took it) this morning and says he will keep taking it but refuses the long- acting injectable. he denies any AVH, SI or HI. Patient's mother, Patsy who is also patient's healthcare proxy reported collateral. She says he has not been taking medications consistently has been very disorganized, has destroyed the apartment that she and her own and pay for, including smashing several television sets, multiple cell phones, refrigerators and other appliances and items, taking off all the door in the apartments (she provided pictures); she says he has been disorganized, not showering at all attending to ADLs, acting confused, and doing strange things such as snorting salt... Patient yelling at her, demanding things such as groceries which she buys and which he then proceeds to throwing the trash... Formulation/clinical reasoning: Patient has well documented history of schizoaffective disorder, bipolar type. Patient had very similar presentation on his last admission January 2024, but responded well with p.o. Risperdal and then on long-acting Risperdal product Uzedy (also on Wellbutrin XL 150 mg), organized, attending to ADLs, in good behavioral and impulse control and even developed some limited insight, briefly acknowledging that he did have paranoid delusions and auditory hallucinations prior to taking medication... However, patient has a long history of medication non-adherence and decompensation which is again resulting in need for psychiatric hospitalization. On the unit, he is with odd behaviors and malodorous (patient did ask for and ostensibly took a shower but emerged remaining malodorous and with matted hair). Patient is currently taking a low dose of Risperdal (though intermittently refused); however this dose is inadequate, patient does not want medication adjustments and refuses long-acting inectable Risperdal which is essential to sustained function in the community; he has no insight at all and field underwriter is convinced that patient will stop taking medications (or take them inadequately) immediately if he were to discharge. Invoke HCP: Patient has a signed healthcare proxy on file. Patient is disorganized and unable to function in the community; he does not have capacity to make medical decisions for himself and so field underwriter will invoke this healthcare proxy. Hospital course: 07/19 Patient difficult with which to engage and denies all psychiatric symptoms. He says I want to get off medication... Manager Front shares his family's concerns about his behaviors but patient tells field underwriter I was doing good at home... Patient talking to field underwriter holding his hand in front of his mouth. At 1 point patient stopped talking to field underwriter completely, keeping his eyes closed but then responded later. Patient does not want to stay in the hospital and Manager Front informed patient of involuntary commitment and invoking healthcare proxy. Patient's mother present who gave more collateral. She says that after his last discharge, he refused to get long-acting injectable and would not take medication. In March he took a low dose of Risperdal for 2 days but then not again until a couple of weeks later. At that time he took Risperdal 2 mg b.i.d. for 10 days and she reports it was the best days ever... That patient was doing well. However he stopped medication and again became disorganized. She says that patient has destroyed the apartment and shows field underwriter multiple pictures of broken televisions, other furniture, flipping over the refrigerator... Patient opened all the drawers throughout the apartment for some reason leaving them open; took off all the anterior doors off the hinges; she says that he broke the furnace somehow and the apartment complex was without heat; now the upstairs Renter is now moving out because does not want to have to deal with the heat going off. She says he took his bed out and put it in the yd; whenever she buys him food he immediately deems it into the trash. She said over the past couple weeks patient has been increasingly agitated and aggressive, once posturing aggressively towards his father; patient angrily threatened his mom yelling leave this house or I'll push you again... , yelling in her face with spittle coming out of his mouth.. Mother says she is scared, felt threatened and left. She said she called the police who know the family; she reports that patient postured aggressively towards 1 of the police officers but because the officer knew him, told his partner to stand down and they thus brought him to the hospital 07/20 pt remains psychotic, talking to himself; patient is difficult with which to engage. Nursing observing patient cheeking Risperdal and spitting out the garbage. Manager Front discussed taking Risperdal with patient who has some ambivalence and told field underwriter he would take it but then that he did not want it and needed something that would help [him] both sleep and drive... He then said he would take it even it increased dose of 2 mg b.i.d. -Patient remains with bizarre behaviors. Patient does not look at field underwriter when talking; during conversation he will intermittently stop talking in the middle of conversation, stare off, sometimes muttering to himself and then restart talking... Patient lining up sugar packets and cards on his bed in specific ways; in the milieu, field underwriter observed patient jumping on a chair and hopping around in the kitchen 07/21 Nursing continue to observe patient cheeking Risperdal than spitting it out. Remains difficult with which to engage and will sometimes not respond to field underwriter at all. Remains with odd, behaviors and internally preoccupied -switch to liquid Risperdal 07/22 Patient refused liquid Risperdal last night but took it this morning. Patient tells field underwriter he will keep taking the Risperdal, since he likes the taste of the liquid Risperdal. Patient remains with disorganized behaviors; patient laughing out loud. Manager Front observed patient going into the kitchen, taking something out of the refrigerator, sitting down in a chair and waiting a few sec and then putting it back in the refrigerator; patient would then going to his room, run around his bed and then back into the kitchen to repeat the same behavior. 07/23 remains disorganized, internally pre-occupied. took risperdal last night and today 07/24 Patient remains with very odd behaviors. On approach, patient turns and quickly walks away; field underwriter catches up with patient and he is willing to talk but turns at an angle and looks away while talking. He says he is good and that he just wants some paper to draw. Today patient had white sticky substance covering the length of multiple pigtails in his hair; field underwriter asked about this and patient said it was tooth paste. Manager Front asked what for and patient said I just woke up this way... He then walks away quickly. -has been taking liquid Risperdal; says he likes the limb and flavored 07/25 pt remains disorganized, psychotic. Explained to pt court tomorrow which he was surprised about (though has been informed). Pt asks to switch from risperdal to ADD medication; then asks to switch to happy medication. He likes the idea of restarting Wellbutrin. Patient stops talking to field underwriter and attends to internal stimuli, seemingly oblivious to writers presence...conversation never resumes. Instead, pt continues to draw smilie face's and hearts on a piece of paper over and over Impression: pt remains floridly psychotic with disorganized speech and behavior. Patient cannot distinguish reality from delusion. Pt is fully incapable of caring for himself in the community and would not be able to acquire food or intermediate on his own; and on his own he would be vulnerable to predation. He has no insight at all into his psychiatric illness or his need for medication and is only taking Liquid Risperdal since he likes the taste of it. Were patient to discharge today, he would very soon cease taking medication. 07/26 c/o nasal congestion; covid/rsv ordered and negative Pt initially refused Risperdal last night but then took it later on. Pt sitting in room, in dark, drawing something that resembles an equation, he says it's something i might make later on Pt said he wanted to talk about discharge and field underwriter reminded him about court today and that the home assessment nurse would decide; he said he does not want to attend court due to anxiety Court civilly committed patient involuntarily to treatment with substituted judgment -will start with Uzedy 100mg; this will last for 1 month; anticipating it will take patient at least 1 month to stabilize; plan will be to give patient Uzedy 200mg prior to leaving which will give him a longer period of stability in the community 07/27: Active on unit. guarded. Pt responding with one word answers to questions. Patient reports feeling fine ; pt was informed of Uzedy injection ordered for today. Pt did not acknowledge T/W and proceeded to close eyes. Pt was encouraged to inform RN if he has any questions. 07/28 seems more withdrawn today-one word answers to nursing, questioning provider re dc- CTP 07/29 - better more engagable- talking getting up getting meals= needs adls- CTP 07/30 pt a little more organized in that has conversation for longer. He says he got the shot (ANDRE of risperdal) and is wondering when he can go home. He currently accepts that this can be discussed with him and parents but would like to see pt closer to his regular self. Pt says he is suicidal and can he get on the antidepressant wellbutrin. No plans or intentions, just thoughts but really wants to -start - wellbutrin -still no shower, and disheveled, internally pre-occupied and no insight -start Wellbutrin; pt stable enough continue po risperdal for couple days especially now starting wellbutrin; will soon dc 07/31 SI resolved. although some improvement patient remains disorganized and starts off saying at home he has nothing to do except for singing, dancing and having business ideas... Mom present Discussed mom's concern with Wellbutrin XL causing too much energy verses the SR. Pt however likes the long acting XL 150mg since it lasts all day long. Had the same conversation with mom last admission when patient then also waned 150mg and disagreed with this mom's perspective; that time as now, field underwriter, staff do not notice any negative effect. he felt that 100mg did not help his mood enough and did not last as long -Patient had moment of insight and said my tyoughts are too mixed up in my head where i'm not sure what's real anymore....is risperdaone the right medicine? then i'll stay on it...i get lost in this imaginary world -However moments later he said i don't think i have anything (any psych illness) and repeated he does not feel he 08/01Remains disorganized with behavior, internally preoccupied, odd, dancing around the unit; talking to himself at length. met with his mother and patient says he is fine with her being his healthcare proxy in making medical decisions. Patient denies all psychiatric illness and does not think he has a psychiatric problem or that he needs medications. Asks if he can go home today, temporarily accepting that he can not 08/02 Patient wanted Wellbutrin to be discontinued, saying it makes him anxious and that he feels better without it. Also that he likes Seroquel which was started for anxiety and says this is helping. Patient says he is fine asks for discharge but temporarily accept not possible. Remains internally preoccupied talking himself 08/03 Patient asks for Concerta which he says he was on as an adolescent, something to help him focus and to help his mood. Manager Front explained what this medication is not currently possible however revisited the idea Wellbutrin. Patient wanted to be back on Wellbutrin but not the long-acting 1, instead the immediate release to which field underwriter agreed. Patient again asked for discharge home. Manager Front explained why he is not ready with which patient is agreed. Manager Front tried some reality testing, reminding patient that he destroyed the apartment he was living in; patient denied this. Manager Front explained that his mother had numerous pictures about it and patient said he disagreed but that that is in the past. 08/04: Continue current plans and regimen 08/05: Continue current regimen and plans Impression: Patient remains without any insight at all. He is disorganized and can only remain appropriate for brief interactions. Patient where he would be discharged will not take medications, will not get next long-acting injectable and will remain psychotic, disorganized and unable to function on his own. 08/06 remains without insight; continue current treatment plan 08/07 Patient confused; he keeps asking for Wellbutrin to be discontinued and then to be restarted. He is asking for it to be restarted with the long-acting now. Patient remains briefly able to happen organized discussion but quickly becomes anxious, internally preoccupied. Patient can not seem to talk about psychotic symptoms and on field underwriter's inquiry, denies any history of psychotic symptoms including his bizarre and disorganized behavior at home resulting in significant damage to his apartment. -patient continues to ask for Concerta despite having had numerous conversations with field underwriter about this; it is field underwriter's opinion that patient is being directed by auditory hallucinations regarding Concerta and Wellbutrin 08/08 Patient approaches field underwriter to say that he does not think he has a psychiatric illness at all, that he has had no psychotic symptoms however and he just has anxiety. He says he does not think he needs Risperdal and that he will absolutely not take it after he is discharged. Manager Front tries to share with him his behaviors when he is off this medication again referring to damaging his apartment however patient explains this by saying it was his 1st apartment, out in his own; then he says he is just a kid though field underwriter reminds him that he is 28 years old and that this is not normal behavior. Patient says he disagrees and reiterates that he does not think he needs Risperdal and that he will not be taking it on discharge. 08/09 he refused Wellbutrin; remains change his mind about medications throughout the day; internally preoccupied; confused 08/10 Patient talking about how he does not need Risperdal, does not think he has a psychiatric illness at all; will not take Risperdal on DC; just wants Concerta. Patient not attending to ADLs; malodorous; internally preoccupied 08/11 Today for the 1st time patient acknowledged that he had auditory hallucinations and that he was feeling scared; he himself asked for risperidone p.o.. Patient would not discuss further. Patient later refused risperidone p.o. saying that he wants something for anger, not anxiety... 08/12 Patient continues to be paranoid and anxious with psychotic confusion. Patient himself expressing as much and says that the Risperdal shot is not a high enough dose and should be increased when he gets it next. Patient has been asking for risperidone p.o. and is now asking for it to be scheduled with which field underwriter agrees Manager Front agrees that current dose of long-acting injectable is either not high enough or has not become effective enough in patient requires additional risperidone to stabilize 08/13 Patient came to ask field underwriter for increasing Wellbutrin saying he wants to go to 300 mg and says he feels he needs it to help with his mood. Patient remains guarded around talking about psychotic symptoms but says he likes that the p.o. Risperdal was scheduled has been taking it. Manager Front talked about risks of increasing Wellbutrin but patient says he wants to try. -regarding request for Concerta, given patient's continued psychotic symptoms, Concerta risks exacerbating his psychosis and increasing agitation and pushing towards kentrell.. At this time he is not stable on current Uzedy dose. Once patient's psychotic symptoms becomes stabilized, consider can become an option. -it has become increasingly obvious that patient is chasing after symptoms he has a hard time discussing or even identifying; in his psychotic confusion he is asking for changes every day regarding medication. In order to preserve as much autonomy as possible for this patient, field underwriter has allowed him have say in decision-making regarding medications like Wellbutrin and PRNs. What has become clear however is what he needs is in increase in Risperdal and that Uzedy 100mg qmonth is not enough. 08/14 patient remains with psychotic symptoms and he himself asks for increase in Risperdal p.o. dose to 3 times a day with which field underwriter agrees and feels is necessary as his psychotic symptoms continue. Patient also asks for increase in dose of his p.r.n. Seroquel and hydroxyzine. Manager Front will inquire with pharmacist regarding increasing Uzedy dose. 08/15 Patient briefly acknowledged that he did have auditory hallucinations but but not discuss it at all. At 1 point, patient stopped talking mid conversation and was clearly internally preoccupied; he was unaware that field underwriter and mother were watching him waiting for him to come out of it. He agreed that he needs increase risperidone and agreed to take it consistently. Patient remains very disorganized in his thinking; he went back and forth, asking for Wellbutrin to be started and then stopped, over and over, changing his mind for various unclear reasons. Patient then pleading to be started on Concerta and could not seem to accept the reasons why this was not an option right now, as it could aggravate already problematic psychotic symptoms. Patient and Patient's mother agreed with plan to increase long-acting injectable Risperdal to 125 mg q.month next week when it comes due. -Discussed case with pharmacist and Risperdal Uzedy dose can be increased to 125 mg q.month (or 250 mg q.2 months). 08/16 A little more calm today. Patient said he took the Wellbutrin and of course the risperidone and feels like it was a good match. He said he feels that is better than Concerta and is fine to remain on this regimen Impression: Patient remains without any insight at all; he remains with psychotic symptoms, internally preoccupied, odd behaviors, talking to himself. Although he can not discuss her acknowledges these things he is certainly suffering from them and expresses his anxiety. Patient also has psychotic confusion, confused due to internal preoccupations and very likely AH, to the point where patient has nearly the same conversation with field underwriter every day and daily changes his mind about how he feels about very small medication changes. Patient received long- acting Risperdal on 07/27, and as it approaches time for next dosing, it appears that this dose is too low (and less likely that it is simply a matter of this dose not having reached his full therapeutic effect). Patient needs Risperdal p.o.. Currently he is amenable to it so will not enforce court order at this time, trying to give him some buy-in; however if he starts to refuse it will need to apply court order. Discussed case with pharmacist and Risperdal Uzedy dose can be increased to 125 mg q.month (or 250 mg q.2 months). Plan: Section 8/ patient involuntary committed with substituted judgment Healthcare proxy affirmed Q 15 minute checks Medications: Risperdal liquid p.o. 2 mg b.i.d.; COURT-ORDERED Seroquel p.r.n. for anxiety +/-Wellbutrin based on pt; ER 150mg daily (pt request this instead of Wellbutrin IR 75 mg daily) Pending: Risperdal Uzedy 125mg on 08/22/24 (on 07/27 received Risperdal Uzedy 100 mg) Past med trials: Vraylar: Did not seem to work Medications on Court-ordered substituted judgment: Risperdal up to 6 mg Uzedy up to 200 mg q.2 months Clozaril Zyprexa Paliperidone/Invega including Trinza Ziprasidone Depakote Patient educated on: diagnosis and medication risk/benefits Informed Consent: understands, does not understand and further education needed Reason for continued inpatient stay Substantial Risk for: rapid decompensation Time Spent With Patient Time: Total time managing care of this patient today ____ minutes.
[2024-08-16 20:00] VITALS: BP 132/70; PULSE 87; TEMP 36.7; O2SAT 97
[2024-08-17] MEDS: risperiDONE Oral Sol 1 MG/ML SOLUTION 2 MG PO ×2 (08:28→17:16)
[2024-08-17] MEDS: buPROPion HCL 75 MG TABLET PO (08:28)
[2024-08-17] MEDS: Nicotine Polacrilex 2 MG GUM 4 MG BUCCAL ×2 (08:46→14:07)
[2024-08-17 11:30] VITALS: BP 136/75; PULSE 106; RESP 18; TEMP 36.4; O2SAT 98
[2024-08-17] MEDS: QUEtiapine Fumarate 50 MG TABLET PO (14:20)
[2024-08-17] MEDS: risperiDONE 0.5 MG TABLET PO (15:03)
--- NOTE | 2024-08-17 15:08 | P.PNPSI_ITS ---
Subjective Subjective Date of Service: 08/17/24 Reason For Visit: Schizoaffective Disorder, bipolar type Interim History: Active on unit, social with peers. Patient reports feeling really good today; pt stated, I feel fully recovered. I'm happy about going home next week . denies any issues at this time. denies SI/HI/VH/AH. Medication Compliance: Yes Side effects from medications: No Mental Status Exam Mental Status Exam Narrative: pt is alert and oriented; behavior is cooperative, calm, guarded; dressed in casual attire, messy hair and disheveled, malodorous; mood is described as good , bright; eye contact good; Speech is normal volume and rate, not pressured; focused on discharge. denies SI/HI/VH/AH. Diagnostics Vital Signs (24Hr): Vital Signs - 24 hr 08/16/24 20:00 08/17/24 11:30 Temperature 98.1 F 97.5 F Pulse Rate 87 106 H Respiratory Rate 18 Blood Pressure 132/70 136/75 Pulse Oximetry 97 98 Oxygen Delivery Method Room Air Room Air BMI result Body Mass Index 28.3 Labs 07/17/24 14:49 07/26/24 16:18 Medications Medications Current Medications Acetaminophen (Acetaminophen 325 Mg Tablet) 650 mg PO Q6H PRN PRN Reason: Headache/Pain, Scale 1-10 Al Hydroxide/Mg Hydroxide (Magnesium Hydrox/Alum Hydrox 30 Ml Oral.Susp) 30 ml PO Q6H PRN PRN Reason: Heartburn/Nausea Bupropion HCl (Bupropion Hcl 75 Mg Tablet) 75 mg PO DAILY JESSICA Last Admin: 08/17/24 08:28 Dose: 75 mg Clonidine HCl (Clonidine Hcl 0.1 Mg Tablet) 0.1 mg PO Q4H PRN; Protocol PRN Reason: Anxiety Last Admin: 08/14/24 12:41 Dose: 0.1 mg Hydroxyzine HCl (Hydroxyzine Hcl 50 Mg Tablet) 50 mg PO Q6H PRN PRN Reason: mild anxiety/insomnia Last Admin: 08/15/24 14:24 Dose: 50 mg Magnesium Hydroxide (Milk Of Magnesia 30 Ml Oral.Susp) 30 ml PO DAILY PRN PRN Reason: Constipation Nicotine (Nicotine 21 Mg Patch.Td24) 21 mg TRANSDERMA DAILY PRN PRN Reason: smoking cessation Last Admin: 08/15/24 10:21 Dose: 21 mg Nicotine Polacrilex (Nicotine Polacrilex 2 Mg Gum) 4 mg BUCCAL Q2H PRN PRN Reason: Nicotine Cravings Last Admin: 08/17/24 14:07 Dose: 4 mg Quetiapine Fumarate (Quetiapine Fumarate 50 Mg Tablet) 50 mg PO QID PRN PRN Reason: mod to severe anxiety Last Admin: 08/17/24 14:20 Dose: 50 mg Risperidone (Risperidone 0.5 Mg Tablet) 0.5 mg PO TID PRN PRN Reason: AH/agitation Last Admin: 08/17/24 15:03 Dose: 0.5 mg Risperidone (Risperidone Oral Karen 1 Mg/Ml Solution) 2 mg PO BID@0900,1700 JESSICA Last Admin: 08/17/24 08:28 Dose: 2 mg Sodium Chloride (Sodium Chloride 0.65 % Nasal 44 Ml Sprbtl) 1 spray NOSTRIL-B Q1H PRN PRN Reason: Congestion Trazodone HCl (Trazodone Hcl 50 Mg Tablet) 50 mg PO BEDTIME PRN PRN Reason: Insomnia Last Admin: 07/31/24 20:35 Dose: 50 mg Allergies Allergies Allergy/AdvReac Type Severity Reaction Status Date / Time strawberry Allergy Mild Itching Verified 07/17/24 14:35 cefazolin Allergy Unknown Itching Verified 07/17/24 14:35 sulfamethoxazole Allergy Unknown Itching Verified 07/17/24 14:35 [From Bactrim] trimethoprim [From Bactrim] Allergy Unknown Itching Verified 07/17/24 14:35 lorazepam [From Ativan] AdvReac Agitated Verified 07/17/24 14:35 lithium AdvReac Unknown other Uncoded 11/29/23 21:03 Assessment & Plan Assessment & Plan (1) Schizoaffective disorder, bipolar type: Status: Acute Code(s): F25.0 - Schizoaffective disorder, bipolar type (2) Anxiety: Status: Chronic Code(s): F41.9 - Anxiety disorder, unspecified Plan HPI: Patient is a 28-year-old male with history of schizoaffective disorder, bipolar type, history of polysubstance abuse who presents via EMS for manic and delusional behaviors. Patient is a poor historian, lying in bed, not opening his eyes, and offering little information. Initially, patient was talking with the nurse but 1 minute later, as soon as mortgage or loan underwriter walked in to talk with patient, he kept his eyes closed and refused to respond at all to mortgage or loan underwriter. A little later on on re-approached, patient is willing to briefly engage. He says that he is doing good. On inquiry, he says I have no idea why he is here in the hospital; mortgage or loan underwriter shared that his parents felt he was unsafe, disorganized and destroying property which he denies, even though mortgage or loan underwriter mentioned that his mother showed pictures of damaging his apartment. Patient refuses to sign in and remains on a 12 B. Patient took risperidone (he initially spit it out but then took it) this morning and says he will keep taking it but refuses the long- acting injectable. he denies any AVH, SI or HI. Patient's mother, Patsy who is also patient's healthcare proxy reported collateral. She says he has not been taking medications consistently has been very disorganized, has destroyed the apartment that she and her own and pay for, including smashing several television sets, multiple cell phones, refrigerators and other appliances and items, taking off all the door in the apartments (she provided pictures); she says he has been disorganized, not showering at all attending to ADLs, acting confused, and doing strange things such as snorting salt... Patient yelling at her, demanding things such as groceries which she buys and which he then proceeds to throwing the trash... Formulation/clinical reasoning: Patient has well documented history of schizoaffective disorder, bipolar type. Patient had very similar presentation on his last admission January 2024, but responded well with p.o. Risperdal and then on long-acting Risperdal product Uzedy (also on Wellbutrin XL 150 mg), organized, attending to ADLs, in good behavioral and impulse control and even developed some limited insight, briefly acknowledging that he did have paranoid delusions and auditory hallucinations prior to taking medication... However, patient has a long history of medication non-adherence and decompensation which is again resulting in need for psychiatric hospitalization. On the unit, he is with odd behaviors and malodorous (patient did ask for and ostensibly took a shower but emerged remaining malodorous and with matted hair). Patient is currently taking a low dose of Risperdal (though intermittently refused); however this dose is inadequate, patient does not want medication adjustments and refuses long-acting inectable Risperdal which is essential to sustained function in the community; he has no insight at all and mortgage or loan underwriter is convinced that patient will stop taking medications (or take them inadequately) immediately if he were to discharge. Invoke HCP: Patient has a signed healthcare proxy on file. Patient is disorganized and unable to function in the community; he does not have capacity to make medical decisions for himself and so mortgage or loan underwriter will invoke this healthcare proxy. Hospital course: 07/19 Patient difficult with which to engage and denies all psychiatric symptoms. He says I want to get off medication... Brim Flexer shares his family's concerns about his behaviors but patient tells mortgage or loan underwriter I was doing good at home... Patient talking to mortgage or loan underwriter holding his hand in front of his mouth. At 1 point patient stopped talking to mortgage or loan underwriter completely, keeping his eyes closed but then responded later. Patient does not want to stay in the hospital and Brim Flexer informed patient of involuntary commitment and invoking healthcare proxy. Patient's mother present who gave more collateral. She says that after his last discharge, he refused to get long-acting injectable and would not take medication. In March he took a low dose of Risperdal for 2 days but then not again until a couple of weeks later. At that time he took Risperdal 2 mg b.i.d. for 10 days and she reports it was the best days ever... That patient was doing well. However he stopped medication and again became disorganized. She says that patient has destroyed the apartment and shows mortgage or loan underwriter multiple pictures of broken televisions, other furniture, flipping over the refrigerator... Patient opened all the drawers throughout the apartment for some reason leaving them open; took off all the anterior doors off the hinges; she says that he broke the furnace somehow and the apartment complex was without heat; now the upstairs Renter is now moving out because does not want to have to deal with the heat going off. She says he took his bed out and put it in the yd; whenever she buys him food he immediately deems it into the trash. She said over the past couple weeks patient has been increasingly agitated and aggressive, once posturing aggressively towards his father; patient angrily threatened his mom yelling leave this house or I'll push you again... , yelling in her face with spittle coming out of his mouth.. Mother says she is scared, felt threatened and left. She said she called the police who know the family; she reports that patient postured aggressively towards 1 of the police officers but because the officer knew him, told his partner to stand down and they thus brought him to the hospital 07/20 pt remains psychotic, talking to himself; patient is difficult with which to engage. Nursing observing patient cheeking Risperdal and spitting out the garbage. Brim Flexer discussed taking Risperdal with patient who has some ambivalence and told mortgage or loan underwriter he would take it but then that he did not want it and needed something that would help [him] both sleep and drive... He then said he would take it even it increased dose of 2 mg b.i.d. -Patient remains with bizarre behaviors. Patient does not look at mortgage or loan underwriter when talking; during conversation he will intermittently stop talking in the middle of conversation, stare off, sometimes muttering to himself and then restart talking... Patient lining up sugar packets and cards on his bed in specific ways; in the milieu, mortgage or loan underwriter observed patient jumping on a chair and hopping around in the kitchen 07/21 Nursing continue to observe patient cheeking Risperdal than spitting it out. Remains difficult with which to engage and will sometimes not respond to mortgage or loan underwriter at all. Remains with odd, behaviors and internally preoccupied -switch to liquid Risperdal 07/22 Patient refused liquid Risperdal last night but took it this morning. Patient tells mortgage or loan underwriter he will keep taking the Risperdal, since he likes the taste of the liquid Risperdal. Patient remains with disorganized behaviors; patient laughing out loud. Brim Flexer observed patient going into the kitchen, taking something out of the refrigerator, sitting down in a chair and waiting a few sec and then putting it back in the refrigerator; patient would then going to his room, run around his bed and then back into the kitchen to repeat the same behavior. 07/23 remains disorganized, internally pre-occupied. took risperdal last night and today 07/24 Patient remains with very odd behaviors. On approach, patient turns and quickly walks away; mortgage or loan underwriter catches up with patient and he is willing to talk but turns at an angle and looks away while talking. He says he is good and that he just wants some paper to draw. Today patient had white sticky substance covering the length of multiple pigtails in his hair; mortgage or loan underwriter asked about this and patient said it was tooth paste. Brim Flexer asked what for and patient said I just woke up this way... He then walks away quickly. -has been taking liquid Risperdal; says he likes the limb and flavored 07/25 pt remains disorganized, psychotic. Explained to pt court tomorrow which he was surprised about (though has been informed). Pt asks to switch from risperdal to ADD medication; then asks to switch to happy medication. He likes the idea of restarting Wellbutrin. Patient stops talking to mortgage or loan underwriter and attends to internal stimuli, seemingly oblivious to writers presence...conversation never resumes. Instead, pt continues to draw smilie face's and hearts on a piece of paper over and over Impression: pt remains floridly psychotic with disorganized speech and behavior. Patient cannot distinguish reality from delusion. Pt is fully incapable of caring for himself in the community and would not be able to acquire food or jail on his own; and on his own he would be vulnerable to predation. He has no insight at all into his psychiatric illness or his need for medication and is only taking Liquid Risperdal since he likes the taste of it. Were patient to discharge today, he would very soon cease taking medication. 07/26 c/o nasal congestion; covid/rsv ordered and negative Pt initially refused Risperdal last night but then took it later on. Pt sitting in room, in dark, drawing something that resembles an equation, he says it's something i might make later on Pt said he wanted to talk about discharge and mortgage or loan underwriter reminded him about court today and that the admissions consultant would decide; he said he does not want to attend court due to anxiety Court civilly committed patient involuntarily to treatment with substituted judgment -will start with Uzedy 100mg; this will last for 1 month; anticipating it will take patient at least 1 month to stabilize; plan will be to give patient Uzedy 200mg prior to leaving which will give him a longer period of stability in the community 07/27: Active on unit. guarded. Pt responding with one word answers to questions. Patient reports feeling fine ; pt was informed of Uzedy injection ordered for today. Pt did not acknowledge T/W and proceeded to close eyes. Pt was encouraged to inform RN if he has any questions. 07/28 seems more withdrawn today-one word answers to nursing, questioning provider re dc- CTP 07/29 - better more engagable- talking getting up getting meals= needs adls- CTP 07/30 pt a little more organized in that has conversation for longer. He says he got the shot (ANDRE of risperdal) and is wondering when he can go home. He currently accepts that this can be discussed with him and parents but would like to see pt closer to his regular self. Pt says he is suicidal and can he get on the antidepressant wellbutrin. No plans or intentions, just thoughts but really wants to -start - wellbutrin -still no shower, and disheveled, internally pre-occupied and no insight -start Wellbutrin; pt stable enough continue po risperdal for couple days especially now starting wellbutrin; will soon dc 07/31 SI resolved. although some improvement patient remains disorganized and starts off saying at home he has nothing to do except for singing, dancing and having business ideas... Mom present Discussed mom's concern with Wellbutrin XL causing too much energy verses the SR. Pt however likes the long acting XL 150mg since it lasts all day long. Had the same conversation with mom last admission when patient then also waned 150mg and disagreed with this mom's perspective; that time as now, mortgage or loan underwriter, staff do not notice any negative effect. he felt that 100mg did not help his mood enough and did not last as long -Patient had moment of insight and said my tyoughts are too mixed up in my head where i'm not sure what's real anymore....is risperdaone the right medicine? then i'll stay on it...i get lost in this imaginary world -However moments later he said i don't think i have anything (any psych illness) and repeated he does not feel he 08/01Remains disorganized with behavior, internally preoccupied, odd, dancing around the unit; talking to himself at length. met with his mother and patient says he is fine with her being his healthcare proxy in making medical decisions. Patient denies all psychiatric illness and does not think he has a psychiatric problem or that he needs medications. Asks if he can go home today, temporarily accepting that he can not 08/02 Patient wanted Wellbutrin to be discontinued, saying it makes him anxious and that he feels better without it. Also that he likes Seroquel which was started for anxiety and says this is helping. Patient says he is fine asks for discharge but temporarily accept not possible. Remains internally preoccupied talking himself 08/03 Patient asks for Concerta which he says he was on as an adolescent, something to help him focus and to help his mood. Brim Flexer explained what this medication is not currently possible however revisited the idea Wellbutrin. Patient wanted to be back on Wellbutrin but not the long-acting 1, instead the immediate release to which mortgage or loan underwriter agreed. Patient again asked for discharge home. Brim Flexer explained why he is not ready with which patient is agreed. Brim Flexer tried some reality testing, reminding patient that he destroyed the apartment he was living in; patient denied this. Brim Flexer explained that his mother had numerous pictures about it and patient said he disagreed but that that is in the past. 08/04: Continue current plans and regimen 08/05: Continue current regimen and plans Impression: Patient remains without any insight at all. He is disorganized and can only remain appropriate for brief interactions. Patient where he would be discharged will not take medications, will not get next long-acting injectable and will remain psychotic, disorganized and unable to function on his own. 08/06 remains without insight; continue current treatment plan 08/07 Patient confused; he keeps asking for Wellbutrin to be discontinued and then to be restarted. He is asking for it to be restarted with the long-acting now. Patient remains briefly able to happen organized discussion but quickly becomes anxious, internally preoccupied. Patient can not seem to talk about psychotic symptoms and on mortgage or loan underwriter's inquiry, denies any history of psychotic symptoms including his bizarre and disorganized behavior at home resulting in significant damage to his apartment. -patient continues to ask for Concerta despite having had numerous conversations with mortgage or loan underwriter about this; it is mortgage or loan underwriter's opinion that patient is being directed by auditory hallucinations regarding Concerta and Wellbutrin 08/08 Patient approaches mortgage or loan underwriter to say that he does not think he has a psychiatric illness at all, that he has had no psychotic symptoms however and he just has anxiety. He says he does not think he needs Risperdal and that he will absolutely not take it after he is discharged. Brim Flexer tries to share with him his behaviors when he is off this medication again referring to damaging his apartment however patient explains this by saying it was his 1st apartment, out in his own; then he says he is just a kid though mortgage or loan underwriter reminds him that he is 28 years old and that this is not normal behavior. Patient says he disagrees and reiterates that he does not think he needs Risperdal and that he will not be taking it on discharge. 08/09 he refused Wellbutrin; remains change his mind about medications throughout the day; internally preoccupied; confused 08/10 Patient talking about how he does not need Risperdal, does not think he has a psychiatric illness at all; will not take Risperdal on DC; just wants Concerta. Patient not attending to ADLs; malodorous; internally preoccupied 08/11 Today for the 1st time patient acknowledged that he had auditory hallucinations and that he was feeling scared; he himself asked for risperidone p.o.. Patient would not discuss further. Patient later refused risperidone p.o. saying that he wants something for anger, not anxiety... 08/12 Patient continues to be paranoid and anxious with psychotic confusion. Patient himself expressing as much and says that the Risperdal shot is not a high enough dose and should be increased when he gets it next. Patient has been asking for risperidone p.o. and is now asking for it to be scheduled with which mortgage or loan underwriter agrees Brim Flexer agrees that current dose of long-acting injectable is either not high enough or has not become effective enough in patient requires additional risperidone to stabilize 08/13 Patient came to ask mortgage or loan underwriter for increasing Wellbutrin saying he wants to go to 300 mg and says he feels he needs it to help with his mood. Patient remains guarded around talking about psychotic symptoms but says he likes that the p.o. Risperdal was scheduled has been taking it. Brim Flexer talked about risks of increasing Wellbutrin but patient says he wants to try. -regarding request for Concerta, given patient's continued psychotic symptoms, Concerta risks exacerbating his psychosis and increasing agitation and pushing towards k[place].. At this time he is not stable on current Uzedy dose. Once patient's psychotic symptoms becomes stabilized, consider can become an option. -it has become increasingly obvious that patient is chasing after symptoms he has a hard time discussing or even identifying; in his psychotic confusion he is asking for changes every day regarding medication. In order to preserve as much autonomy as possible for this patient, mortgage or loan underwriter has allowed him have say in decision-making regarding medications like Wellbutrin and PRNs. What has become clear however is what he needs is in increase in Risperdal and that Uzedy 100mg qmonth is not enough. 08/14 patient remains with psychotic symptoms and he himself asks for increase in Risperdal p.o. dose to 3 times a day with which mortgage or loan underwriter agrees and feels is necessary as his psychotic symptoms continue. Patient also asks for increase in dose of his p.r.n. Seroquel and hydroxyzine. Brim Flexer will inquire with pharmacist regarding increasing Uzedy dose. 08/15 Patient briefly acknowledged that he did have auditory hallucinations but but not discuss it at all. At 1 point, patient stopped talking mid conversation and was clearly internally preoccupied; he was unaware that mortgage or loan underwriter and mother were watching him waiting for him to come out of it. He agreed that he needs increase risperidone and agreed to take it consistently. Patient remains very disorganized in his thinking; he went back and forth, asking for Wellbutrin to be started and then stopped, over and over, changing his mind for various unclear reasons. Patient then pleading to be started on Concerta and could not seem to accept the reasons why this was not an option right now, as it could aggravate already problematic psychotic symptoms. Patient and Patient's mother agreed with plan to increase long-acting injectable Risperdal to 125 mg q.month next week when it comes due. -Discussed case with pharmacist and Risperdal Uzedy dose can be increased to 125 mg q.month (or 250 mg q.2 months). 08/16 A little more calm today. Patient said he took the Wellbutrin and of course the risperidone and feels like it was a good match. He said he feels that is better than Concerta and is fine to remain on this regimen 08/17: Active on unit, social with peers. Patient reports feeling really good today; pt stated, I feel fully recovered. I'm happy about going home next week . denies any issues at this time. denies SI/HI/VH/AH. Continue current tx plan. Impression: Patient remains without any insight at all; he remains with psychotic symptoms, internally preoccupied, odd behaviors, talking to himself. Although he can not discuss her acknowledges these things he is certainly suffering from them and expresses his anxiety. Patient also has psychotic confusion, confused due to internal preoccupations and very likely AH, to the point where patient has nearly the same conversation with mortgage or loan underwriter every day and daily changes his mind about how he feels about very small medication changes. Patient received long- acting Risperdal on 07/27, and as it approaches time for next dosing, it appears that this dose is too low (and less likely that it is simply a matter of this dose not having reached his full therapeutic effect). Patient needs Risperdal p.o.. Currently he is amenable to it so will not enforce court order at this time, trying to give him some buy-in; however if he starts to refuse it will need to apply court order. Discussed case with pharmacist and Risperdal Uzedy dose can be increased to 125 mg q.month (or 250 mg q.2 months). Plan: Section 8/8a patient involuntary committed with substituted judgment Healthcare proxy affirmed Q 15 minute checks Medications: Risperdal liquid p.o. 2 mg b.i.d.; COURT-ORDERED Seroquel p.r.n. for anxiety +/-Wellbutrin based on pt; ER 150mg daily (pt request this instead of Wellbutrin IR 75 mg daily) Pending: Risperdal Uzedy 125mg on 08/22/24 (on 07/27 received Risperdal Uzedy 100 mg) Past med trials: Vraylar: Did not seem to work Medications on Court-ordered substituted judgment: Risperdal up to 6 mg Uzedy up to 200 mg q.2 months Clozaril Zyprexa Paliperidone/Invega including Trinza Ziprasidone Depakote Patient educated on: medication risk/benefits Reason for continued inpatient stay Substantial Risk for: med/psych decompensation Time Spent With Patient Time: Total time managing care of this patient today _10___ minutes.
[2024-08-17 15:42] VITALS: BP 137/76
[2024-08-17] MEDS: hydrOXYzine HCL 50 MG TABLET PO (15:42)
[2024-08-17] MEDS: cloNIDine HCL 0.1 MG TABLET PO (15:42)
--- NOTE | 2024-08-18 07:22 | P.PNPSI_ITS ---
Subjective Subjective Date of Service: 08/18/24 Reason For Visit: Schizoaffective Disorder, bipolar type Subjective Notes: Section 8 Healthcare Proxy: No Guardianship: No Medical Problems Affecting Mental Status: No Interim History: 28 yo with schizoaffective disorder - continuing to show ambivalence around medications at one time asking for prns then no prns, inc wellbutrin then lower wellbutrin - In discussion with dr esquivel he confirmed we should stick with plan to focus on risperidone as important element here- Pt reports to be looking for med that increases his motivation to work Medication Compliance: Yes Side effects from medications: No Attending Groups: Intermittent Review of Systems Acute medical concerns: No Medical Review of Systems: unchanged Mental Status Exam Mental Status Exam Patient Appearance: Disheveled and Unkempt Patient Orientation: Person, Place, Time and Situation Level of Consciousness: Awake Patient Behavior: Cooperative and Good Eye Contact Mood Description: Anxious Affect Description: Blunted Patient Cognition Impaired: No Ability to Follow Directions: Fair Speech Pattern: Clear Thought Content: positive for Perseveration (around medications) Judgement: Fair Diagnostics Vital Signs (24Hr): Vital Signs - 24 hr 08/17/24 11:30 08/17/24 15:42 Temperature 97.5 F Pulse Rate 106 H Respiratory Rate 18 Blood Pressure 136/75 137/76 Pulse Oximetry 98 Oxygen Delivery Method Room Air BMI result Body Mass Index 28.3 Labs 07/17/24 14:49 07/26/24 16:18 Medications Medications Current Medications Acetaminophen (Acetaminophen 325 Mg Tablet) 650 mg PO Q6H PRN PRN Reason: Headache/Pain, Scale 1-10 Al Hydroxide/Mg Hydroxide (Magnesium Hydrox/Alum Hydrox 30 Ml Oral.Susp) 30 ml PO Q6H PRN PRN Reason: Heartburn/Nausea Bupropion HCl (Bupropion Hcl 75 Mg Tablet) 75 mg PO DAILY JESSICA Last Admin: 08/17/24 08:28 Dose: 75 mg Clonidine HCl (Clonidine Hcl 0.1 Mg Tablet) 0.1 mg PO Q4H PRN; Protocol PRN Reason: Anxiety Last Admin: 08/17/24 15:42 Dose: 0.1 mg Hydroxyzine HCl (Hydroxyzine Hcl 50 Mg Tablet) 50 mg PO Q6H PRN PRN Reason: mild anxiety/insomnia Last Admin: 08/17/24 15:42 Dose: 50 mg Magnesium Hydroxide (Milk Of Magnesia 30 Ml Oral.Susp) 30 ml PO DAILY PRN PRN Reason: Constipation Nicotine (Nicotine 21 Mg Patch.Td24) 21 mg TRANSDERMA DAILY PRN PRN Reason: smoking cessation Last Admin: 08/15/24 10:21 Dose: 21 mg Nicotine Polacrilex (Nicotine Polacrilex 2 Mg Gum) 4 mg BUCCAL Q2H PRN PRN Reason: Nicotine Cravings Last Admin: 08/17/24 14:07 Dose: 4 mg Quetiapine Fumarate (Quetiapine Fumarate 50 Mg Tablet) 50 mg PO QID PRN PRN Reason: mod to severe anxiety Last Admin: 08/17/24 14:20 Dose: 50 mg Risperidone (Risperidone 0.5 Mg Tablet) 0.5 mg PO TID PRN PRN Reason: AH/agitation Last Admin: 08/17/24 15:03 Dose: 0.5 mg Risperidone (Risperidone Oral Karen 1 Mg/Ml Solution) 2 mg PO BID@0900,1700 JESSICA Last Admin: 08/17/24 17:16 Dose: 2 mg Sodium Chloride (Sodium Chloride 0.65 % Nasal 44 Ml Sprbtl) 1 spray NOSTRIL-B Q1H PRN PRN Reason: Congestion Trazodone HCl (Trazodone Hcl 50 Mg Tablet) 50 mg PO BEDTIME PRN PRN Reason: Insomnia Last Admin: 07/31/24 20:35 Dose: 50 mg Allergies Allergies Allergy/AdvReac Type Severity Reaction Status Date / Time strawberry Allergy Mild Itching Verified 07/17/24 14:35 cefazolin Allergy Unknown Itching Verified 07/17/24 14:35 sulfamethoxazole Allergy Unknown Itching Verified 07/17/24 14:35 [From Bactrim] trimethoprim [From Bactrim] Allergy Unknown Itching Verified 07/17/24 14:35 lorazepam [From Ativan] AdvReac Agitated Verified 07/17/24 14:35 lithium AdvReac Unknown other Uncoded 11/29/23 21:03 Assessment & Plan Assessment & Plan (1) Schizoaffective disorder, bipolar type: Status: Acute Code(s): F25.0 - Schizoaffective disorder, bipolar type (2) Anxiety: Status: Chronic Code(s): F41.9 - Anxiety disorder, unspecified Plan HPI: Patient is a 28-year-old male with history of schizoaffective disorder, bipolar type, history of polysubstance abuse who presents via EMS for manic and delusional behaviors. Patient is a poor historian, lying in bed, not opening his eyes, and offering little information. Initially, patient was talking with the nurse but 1 minute later, as soon as video games storywriter walked in to talk with patient, he kept his eyes closed and refused to respond at all to video games storywriter. A little later on on re-approached, patient is willing to briefly engage. He says that he is doing good. On inquiry, he says I have no idea why he is here in the hospital; video games storywriter shared that his parents felt he was unsafe, disorganized and destroying property which he denies, even though video games storywriter mentioned that his mother showed pictures of damaging his apartment. Patient refuses to sign in and remains on a 12 B. Patient took risperidone (he initially spit it out but then took it) this morning and says he will keep taking it but refuses the long- acting injectable. he denies any AVH, SI or HI. Patient's mother, Patsy who is also patient's healthcare proxy reported collateral. She says he has not been taking medications consistently has been very disorganized, has destroyed the apartment that she and her own and pay for, including smashing several television sets, multiple cell phones, refrigerators and other appliances and items, taking off all the door in the apartments (she provided pictures); she says he has been disorganized, not showering at all attending to ADLs, acting confused, and doing strange things such as snorting salt... Patient yelling at her, demanding things such as groceries which she buys and which he then proceeds to throwing the trash... Formulation/clinical reasoning: Patient has well documented history of schizoaffective disorder, bipolar type. Patient had very similar presentation on his last admission January 2024, but responded well with p.o. Risperdal and then on long-acting Risperdal product Uzedy (also on Wellbutrin XL 150 mg), organized, attending to ADLs, in good behavioral and impulse control and even developed some limited insight, briefly acknowledging that he did have paranoid delusions and auditory hallucinations prior to taking medication... However, patient has a long history of medication non-adherence and decompensation which is again resulting in need for psychiatric hospitalization. On the unit, he is with odd behaviors and malodorous (patient did ask for and ostensibly took a shower but emerged remaining malodorous and with matted hair). Patient is currently taking a low dose of Risperdal (though intermittently refused); however this dose is inadequate, patient does not want medication adjustments and refuses long-acting inectable Risperdal which is essential to sustained function in the community; he has no insight at all and video games storywriter is convinced that patient will stop taking medications (or take them inadequately) immediately if he were to discharge. Invoke HCP: Patient has a signed healthcare proxy on file. Patient is disorganized and unable to function in the community; he does not have capacity to make medical decisions for himself and so video games storywriter will invoke this healthcare proxy. Hospital course: 07/19 Patient difficult with which to engage and denies all psychiatric symptoms. He says I want to get off medication... Brood Hatchery Manager shares his family's concerns about his behaviors but patient tells video games storywriter I was doing good at home... Patient talking to video games storywriter holding his hand in front of his mouth. At 1 point patient stopped talking to video games storywriter completely, keeping his eyes closed but then responded later. Patient does not want to stay in the hospital and Brood Hatchery Manager informed patient of involuntary commitment and invoking healthcare proxy. Patient's mother present who gave more collateral. She says that after his last discharge, he refused to get long-acting injectable and would not take medication. In March he took a low dose of Risperdal for 2 days but then not again until a couple of weeks later. At that time he took Risperdal 2 mg b.i.d. for 10 days and she reports it was the best days ever... That patient was doing well. However he stopped medication and again became disorganized. She says that patient has destroyed the apartment and shows video games storywriter multiple pictures of broken televisions, other furniture, flipping over the refrigerator... Patient opened all the drawers throughout the apartment for some reason leaving them open; took off all the anterior doors off the hinges; she says that he broke the furnace somehow and the apartment complex was without heat; now the upstairs Renter is now moving out because does not want to have to deal with the heat going off. She says he took his bed out and put it in the yd; whenever she buys him food he immediately deems it into the trash. She said over the past couple weeks patient has been increasingly agitated and aggressive, once posturing aggressively towards his father; patient angrily threatened his mom yelling leave this house or I'll push you again... , yelling in her face with spittle coming out of his mouth.. Mother says she is scared, felt threatened and left. She said she called the police who know the family; she reports that patient postured aggressively towards 1 of the police officers but because the officer knew him, told his partner to stand down and they thus brought him to the hospital 07/20 pt remains psychotic, talking to himself; patient is difficult with which to engage. Nursing observing patient cheeking Risperdal and spitting out the garbage. Brood Hatchery Manager discussed taking Risperdal with patient who has some ambivalence and told video games storywriter he would take it but then that he did not want it and needed something that would help [him] both sleep and drive... He then said he would take it even it increased dose of 2 mg b.i.d. -Patient remains with bizarre behaviors. Patient does not look at video games storywriter when talking; during conversation he will intermittently stop talking in the middle of conversation, stare off, sometimes muttering to himself and then restart talking... Patient lining up sugar packets and cards on his bed in specific ways; in the milieu, video games storywriter observed patient jumping on a chair and hopping around in the kitchen 07/21 Nursing continue to observe patient cheeking Risperdal than spitting it out. Remains difficult with which to engage and will sometimes not respond to video games storywriter at all. Remains with odd, behaviors and internally preoccupied -switch to liquid Risperdal 07/22 Patient refused liquid Risperdal last night but took it this morning. Patient tells video games storywriter he will keep taking the Risperdal, since he likes the taste of the liquid Risperdal. Patient remains with disorganized behaviors; patient laughing out loud. Brood Hatchery Manager observed patient going into the kitchen, taking something out of the refrigerator, sitting down in a chair and waiting a few sec and then putting it back in the refrigerator; patient would then going to his room, run around his bed and then back into the kitchen to repeat the same behavior. 07/23 remains disorganized, internally pre-occupied. took risperdal last night and today 07/24 Patient remains with very odd behaviors. On approach, patient turns and quickly walks away; video games storywriter catches up with patient and he is willing to talk but turns at an angle and looks away while talking. He says he is good and that he just wants some paper to draw. Today patient had white sticky substance covering the length of multiple pigtails in his hair; video games storywriter asked about this and patient said it was tooth paste. Brood Hatchery Manager asked what for and patient said I just woke up this way... He then walks away quickly. -has been taking liquid Risperdal; says he likes the limb and flavored 07/25 pt remains disorganized, psychotic. Explained to pt court tomorrow which he was surprised about (though has been informed). Pt asks to switch from risperdal to ADD medication; then asks to switch to happy medication. He likes the idea of restarting Wellbutrin. Patient stops talking to video games storywriter and attends to internal stimuli, seemingly oblivious to writers presence...conversation never resumes. Instead, pt continues to draw smilie face's and hearts on a piece of paper over and over Impression: pt remains floridly psychotic with disorganized speech and behavior. Patient cannot distinguish reality from delusion. Pt is fully incapable of caring for himself in the community and would not be able to acquire food or chcf on his own; and on his own he would be vulnerable to predation. He has no insight at all into his psychiatric illness or his need for medication and is only taking Liquid Risperdal since he likes the taste of it. Were patient to discharge today, he would very soon cease taking medication. 07/26 c/o nasal congestion; covid/rsv ordered and negative Pt initially refused Risperdal last night but then took it later on. Pt sitting in room, in dark, drawing something that resembles an equation, he says it's something i might make later on Pt said he wanted to talk about discharge and video games storywriter reminded him about court today and that the rod placer would decide; he said he does not want to attend court due to anxiety Court civilly committed patient involuntarily to treatment with substituted judgment -will start with Uzedy 100mg; this will last for 1 month; anticipating it will take patient at least 1 month to stabilize; plan will be to give patient Uzedy 200mg prior to leaving which will give him a longer period of stability in the community 07/27: Active on unit. guarded. Pt responding with one word answers to questions. Patient reports feeling fine ; pt was informed of Uzedy injection ordered for today. Pt did not acknowledge T/W and proceeded to close eyes. Pt was encouraged to inform RN if he has any questions. 07/28 seems more withdrawn today-one word answers to nursing, questioning provider re dc- CTP 07/29 - better more engagable- talking getting up getting meals= needs adls- CTP 07/30 pt a little more organized in that has conversation for longer. He says he got the shot (ANDRE of risperdal) and is wondering when he can go home. He currently accepts that this can be discussed with him and parents but would like to see pt closer to his regular self. Pt says he is suicidal and can he get on the antidepressant wellbutrin. No plans or intentions, just thoughts but really wants to -start - wellbutrin -still no shower, and disheveled, internally pre-occupied and no insight -start Wellbutrin; pt stable enough continue po risperdal for couple days especially now starting wellbutrin; will soon dc 07/31 SI resolved. although some improvement patient remains disorganized and starts off saying at home he has nothing to do except for singing, dancing and having business ideas... Mom present Discussed mom's concern with Wellbutrin XL causing too much energy verses the SR. Pt however likes the long acting XL 150mg since it lasts all day long. Had the same conversation with mom last admission when patient then also waned 150mg and disagreed with this mom's perspective; that time as now, video games storywriter, staff do not notice any negative effect. he felt that 100mg did not help his mood enough and did not last as long -Patient had moment of insight and said my tyoughts are too mixed up in my head where i'm not sure what's real anymore....is risperdaone the right medicine? then i'll stay on it...i get lost in this imaginary world -However moments later he said i don't think i have anything (any psych illness) and repeated he does not feel he 08/01Remains disorganized with behavior, internally preoccupied, odd, dancing around the unit; talking to himself at length. met with his mother and patient says he is fine with her being his healthcare proxy in making medical decisions. Patient denies all psychiatric illness and does not think he has a psychiatric problem or that he needs medications. Asks if he can go home today, temporarily accepting that he can not 08/02 Patient wanted Wellbutrin to be discontinued, saying it makes him anxious and that he feels better without it. Also that he likes Seroquel which was started for anxiety and says this is helping. Patient says he is fine asks for discharge but temporarily accept not possible. Remains internally preoccupied talking himself 08/03 Patient asks for Concerta which he says he was on as an adolescent, something to help him focus and to help his mood. Brood Hatchery Manager explained what this medication is not currently possible however revisited the idea Wellbutrin. Patient wanted to be back on Wellbutrin but not the long-acting 1, instead the immediate release to which video games storywriter agreed. Patient again asked for discharge home. Brood Hatchery Manager explained why he is not ready with which patient is agreed. Brood Hatchery Manager tried some reality testing, reminding patient that he destroyed the apartment he was living in; patient denied this. Brood Hatchery Manager explained that his mother had numerous pictures about it and patient said he disagreed but that that is in the past. 08/04: Continue current plans and regimen 08/05: Continue current regimen and plans Impression: Patient remains without any insight at all. He is disorganized and can only remain appropriate for brief interactions. Patient where he would be discharged will not take medications, will not get next long-acting injectable and will remain psychotic, disorganized and unable to function on his own. 08/06 remains without insight; continue current treatment plan 08/07 Patient confused; he keeps asking for Wellbutrin to be discontinued and then to be restarted. He is asking for it to be restarted with the long-acting now. Patient remains briefly able to happen organized discussion but quickly becomes anxious, internally preoccupied. Patient can not seem to talk about psychotic symptoms and on video games storywriter's inquiry, denies any history of psychotic symptoms including his bizarre and disorganized behavior at home resulting in significant damage to his apartment. -patient continues to ask for Concerta despite having had numerous conversations with video games storywriter about this; it is video games storywriter's opinion that patient is being directed by auditory hallucinations regarding Concerta and Wellbutrin 08/08 Patient approaches video games storywriter to say that he does not think he has a psychiatric illness at all, that he has had no psychotic symptoms however and he just has anxiety. He says he does not think he needs Risperdal and that he will absolutely not take it after he is discharged. Brood Hatchery Manager tries to share with him his behaviors when he is off this medication again referring to damaging his apartment however patient explains this by saying it was his 1st apartment, out in his own; then he says he is just a kid though video games storywriter reminds him that he is 28 years old and that this is not normal behavior. Patient says he disagrees and reiterates that he does not think he needs Risperdal and that he will not be taking it on discharge. 08/09 he refused Wellbutrin; remains change his mind about medications throughout the day; internally preoccupied; confused 08/10 Patient talking about how he does not need Risperdal, does not think he has a psychiatric illness at all; will not take Risperdal on DC; just wants Concerta. Patient not attending to ADLs; malodorous; internally preoccupied 08/11 Today for the 1st time patient acknowledged that he had auditory hallucinations and that he was feeling scared; he himself asked for risperidone p.o.. Patient would not discuss further. Patient later refused risperidone p.o. saying that he wants something for anger, not anxiety... 08/12 Patient continues to be paranoid and anxious with psychotic confusion. Patient himself expressing as much and says that the Risperdal shot is not a high enough dose and should be increased when he gets it next. Patient has been asking for risperidone p.o. and is now asking for it to be scheduled with which video games storywriter agrees Brood Hatchery Manager agrees that current dose of long-acting injectable is either not high enough or has not become effective enough in patient requires additional risperidone to stabilize 08/13 Patient came to ask video games storywriter for increasing Wellbutrin saying he wants to go to 300 mg and says he feels he needs it to help with his mood. Patient remains guarded around talking about psychotic symptoms but says he likes that the p.o. Risperdal was scheduled has been taking it. Brood Hatchery Manager talked about risks of increasing Wellbutrin but patient says he wants to try. -regarding request for Concerta, given patient's continued psychotic symptoms, Concerta risks exacerbating his psychosis and increasing agitation and pushing towards kentrell.. At this time he is not stable on current Uzedy dose. Once patient's psychotic symptoms becomes stabilized, consider can become an option. -it has become increasingly obvious that patient is chasing after symptoms he has a hard time discussing or even identifying; in his psychotic confusion he is asking for changes every day regarding medication. In order to preserve as much autonomy as possible for this patient, video games storywriter has allowed him have say in decision-making regarding medications like Wellbutrin and PRNs. What has become clear however is what he needs is in increase in Risperdal and that Uzedy 100mg qmonth is not enough. 08/14 patient remains with psychotic symptoms and he himself asks for increase in Risperdal p.o. dose to 3 times a day with which video games storywriter agrees and feels is necessary as his psychotic symptoms continue. Patient also asks for increase in dose of his p.r.n. Seroquel and hydroxyzine. Brood Hatchery Manager will inquire with pharmacist regarding increasing Uzedy dose. 08/15 Patient briefly acknowledged that he did have auditory hallucinations but but not discuss it at all. At 1 point, patient stopped talking mid conversation and was clearly internally preoccupied; he was unaware that video games storywriter and mother were watching him waiting for him to come out of it. He agreed that he needs increase risperidone and agreed to take it consistently. Patient remains very disorganized in his thinking; he went back and forth, asking for Wellbutrin to be started and then stopped, over and over, changing his mind for various unclear reasons. Patient then pleading to be started on Concerta and could not seem to accept the reasons why this was not an option right now, as it could aggravate already problematic psychotic symptoms. Patient and Patient's mother agreed with plan to increase long-acting injectable Risperdal to 125 mg q.month next week when it comes due. -Discussed case with pharmacist and Risperdal Uzedy dose can be increased to 125 mg q.month (or 250 mg q.2 months). 08/16 A little more calm today. Patient said he took the Wellbutrin and of course the risperidone and feels like it was a good match. He said he feels that is better than Concerta and is fine to remain on this regimen 08/17: Active on unit, social with peers. Patient reports feeling really good today; pt stated, I feel fully recovered. I'm happy about going home next week . denies any issues at this time. denies SI/HI/VH/AH. Continue current tx plan. 08/18- CTP try and keep limits on medication to focus on meds that most likely benefit overall condition Impression: Patient remains without any insight at all; he remains with psychotic symptoms, internally preoccupied, odd behaviors, talking to himself. Although he can not discuss her acknowledges these things he is certainly suffering from them and expresses his anxiety. 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 Patient received long- acting Risperdal on 07/27, and as it approaches time for next dosing, it appears that this dose is too low (and less likely that it is simply a matter of this dose not having reached his full therapeutic effect). Patient needs Risperdal p.o.. Currently he is amenable to it so will not enforce court order at this time, trying to give him some buy-in; however if he starts to refuse it will need to apply court order. Discussed case with pharmacist and Risperdal Uzedy dose can be increased to 125 mg q.month (or 250 mg q.2 months). Plan: Section 8/8a patient involuntary committed with substituted judgment Healthcare proxy affirmed Q 15 minute checks Medications: Risperdal liquid p.o. 2 mg [address]-ORDERED Seroquel p.r.n. for anxiety +/-Wellbutrin based on pt; ER 150mg daily (pt request this instead of Wellbutrin IR 75 mg daily) Pending: Risperdal Uzedy 125mg on 08/22/24 (on 07/27 received Risperdal Uzedy 100 mg) Past med trials: Vraylar: Did not seem to work Medications on Court-ordered substituted judgment: Risperdal up to 6 mg Uzedy up to 200 mg q.2 months Clozaril Zyprexa Paliperidone/Invega including Trinza Ziprasidone Depakote Patient educated on: medication risk/benefits Informed Consent: further education needed Reason for continued inpatient stay Substantial Risk for: inability to function and rapid decompensation Time Spent With Patient Time: Total time managing care of this patient today ____ minutes.
[2024-08-18 08:00] VITALS: BP 101/68; PULSE 74; TEMP 36.6; O2SAT 99
[2024-08-18] MEDS: buPROPion HCL 75 MG TABLET PO (08:29)
[2024-08-18] MEDS: hydrOXYzine HCL 50 MG TABLET PO ×2 (10:08→16:24)
[2024-08-18] MEDS: risperiDONE Oral Sol 1 MG/ML SOLUTION 2 MG PO ×2 (10:13→16:23)
[2024-08-18 10:55] VITALS: BP 130/68
[2024-08-18] MEDS: cloNIDine HCL 0.1 MG TABLET PO ×2 (10:55→16:53)
[2024-08-18] MEDS: QUEtiapine Fumarate 50 MG TABLET PO ×2 (10:55→16:53)
[2024-08-18] MEDS: Nicotine Polacrilex 2 MG GUM 4 MG BUCCAL (14:58)
[2024-08-18] MEDS: Nicotine 21 MG PATCH.TD24 TRANSDERMA (14:58)
[2024-08-18 16:53] VITALS: BP 124/76
[2024-08-18 19:35] VITALS: BP 112/63; PULSE 81; TEMP 36.9; O2SAT 97
[2024-08-19] MEDS: risperiDONE Oral Sol 1 MG/ML SOLUTION 2 MG PO ×2 (07:54→17:08)
--- NOTE | 2024-08-19 08:02 | P.PNPSI_ITS ---
Subjective Subjective Date of Service: 08/19/24 Reason For Visit: Schizoaffective Disorder, bipolar type Subjective Notes: Section 8 Healthcare Proxy: No Guardianship: No Medical Problems Affecting Mental Status: No Interim History: 28 yo continuing to perseverate on antidepressant or wellbutrin inc or adderall to help him so he can get more done and work- Discussed ongoing focus on risperidone- Medication Compliance: Yes Side effects from medications: No Attending Groups: No Review of Systems Acute medical concerns: No Medical Review of Systems: unchanged Mental Status Exam Mental Status Exam Patient Appearance: Unkempt Patient Orientation: Person, Place and Situation Level of Consciousness: Awake and Alert Patient Behavior: Talkative, Restless and Good Eye Contact Mood Description: Expansive Affect Description: Blunted Patient Cognition Impaired: No Ability to Follow Directions: Fair Speech Pattern: Clear Hallucinations: None Delusions: Not Present Thought Process: Distracted Thought Content: positive for Preoccupation Depressive Symptoms: Difficulty Concentrating Abnormal Motor Activity Signs and Symptoms: Restlessness Judgement: Fair Diagnostics Vital Signs (24Hr): Vital Signs - 24 hr 08/18/24 10:55 08/18/24 16:53 08/18/24 19:35 Temperature 98.5 F Pulse Rate 81 Blood Pressure 130/68 124/76 112/63 Pulse Oximetry 97 Oxygen Delivery Method Room Air BMI result Body Mass Index 28.3 Labs 07/17/24 14:49 07/26/24 16:18 Medications Medications Current Medications Acetaminophen (Acetaminophen 325 Mg Tablet) 650 mg PO Q6H PRN PRN Reason: Headache/Pain, Scale 1-10 Al Hydroxide/Mg Hydroxide (Magnesium Hydrox/Alum Hydrox 30 Ml Oral.Susp) 30 ml PO Q6H PRN PRN Reason: Heartburn/Nausea Bupropion HCl (Bupropion Hcl 75 Mg Tablet) 75 mg PO DAILY JESSICA Last Admin: 08/19/24 07:56 Dose: Not Given Clonidine HCl (Clonidine Hcl 0.1 Mg Tablet) 0.1 mg PO Q4H PRN; Protocol PRN Reason: Anxiety Last Admin: 08/18/24 16:53 Dose: 0.1 mg Hydroxyzine HCl (Hydroxyzine Hcl 50 Mg Tablet) 50 mg PO Q6H PRN PRN Reason: mild anxiety/insomnia Last Admin: 08/18/24 16:24 Dose: 50 mg Magnesium Hydroxide (Milk Of Magnesia 30 Ml Oral.Susp) 30 ml PO DAILY PRN PRN Reason: Constipation Nicotine (Nicotine 21 Mg Patch.Td24) 21 mg TRANSDERMA DAILY PRN PRN Reason: smoking cessation Last Admin: 08/18/24 14:58 Dose: 21 mg Nicotine Polacrilex (Nicotine Polacrilex 2 Mg Gum) 4 mg BUCCAL Q2H PRN PRN Reason: Nicotine Cravings Last Admin: 08/18/24 14:58 Dose: 4 mg Quetiapine Fumarate (Quetiapine Fumarate 50 Mg Tablet) 50 mg PO QID PRN PRN Reason: mod to severe anxiety Last Admin: 08/18/24 16:53 Dose: 50 mg Risperidone (Risperidone 0.5 Mg Tablet) 0.5 mg PO TID PRN PRN Reason: AH/agitation Last Admin: 08/17/24 15:03 Dose: 0.5 mg Risperidone (Risperidone Oral Karen 1 Mg/Ml Solution) 2 mg PO BID@0900,1700 JESSICA Last Admin: 08/19/24 07:54 Dose: 2 mg Sodium Chloride (Sodium Chloride 0.65 % Nasal 44 Ml Sprbtl) 1 spray NOSTRIL-B Q1H PRN PRN Reason: Congestion Trazodone HCl (Trazodone Hcl 50 Mg Tablet) 50 mg PO BEDTIME PRN PRN Reason: Insomnia Last Admin: 07/31/24 20:35 Dose: 50 mg Allergies Allergies Allergy/AdvReac Type Severity Reaction Status Date / Time strawberry Allergy Mild Itching Verified 07/17/24 14:35 cefazolin Allergy Unknown Itching Verified 07/17/24 14:35 sulfamethoxazole Allergy Unknown Itching Verified 07/17/24 14:35 [From Bactrim] trimethoprim [From Bactrim] Allergy Unknown Itching Verified 07/17/24 14:35 lorazepam [From Ativan] AdvReac Agitated Verified 07/17/24 14:35 lithium AdvReac Unknown other Uncoded 11/29/23 21:03 Assessment & Plan Assessment & Plan (1) Schizoaffective disorder, bipolar type: Status: Acute Code(s): F25.0 - Schizoaffective disorder, bipolar type (2) Anxiety: Status: Chronic Code(s): F41.9 - Anxiety disorder, unspecified Plan HPI: Patient is a 28-year-old male with history of schizoaffective disorder, bipolar type, history of polysubstance abuse who presents via EMS for manic and delusional behaviors. Patient is a poor historian, lying in bed, not opening his eyes, and offering little information. Initially, patient was talking with the nurse but 1 minute later, as soon as keno writer walked in to talk with patient, he kept his eyes closed and refused to respond at all to keno writer. A little later on on re-approached, patient is willing to briefly engage. He says that he is doing good. On inquiry, he says I have no idea why he is here in the hospital; keno writer shared that his parents felt he was unsafe, disorganized and destroying property which he denies, even though keno writer mentioned that his mother showed pictures of damaging his apartment. Patient refuses to sign in and remains on a 12 B. Patient took risperidone (he initially spit it out but then took it) this morning and says he will keep taking it but refuses the long- acting injectable. he denies any AVH, SI or HI. Patient's mother, Patsy who is also patient's healthcare proxy reported collateral. She says he has not been taking medications consistently has been very disorganized, has destroyed the apartment that she and her own and pay for, including smashing several television sets, multiple cell phones, refrigerators and other appliances and items, taking off all the door in the apartments (she provided pictures); she says he has been disorganized, not showering at all attending to ADLs, acting confused, and doing strange things such as snorting salt... Patient yelling at her, demanding things such as groceries which she buys and which he then proceeds to throwing the trash... Formulation/clinical reasoning: Patient has well documented history of schizoaffective disorder, bipolar type. Patient had very similar presentation on his last admission January 2024, but responded well with p.o. Risperdal and then on long-acting Risperdal product Uzedy (also on Wellbutrin XL 150 mg), organized, attending to ADLs, in good behavioral and impulse control and even developed some limited insight, briefly acknowledging that he did have paranoid delusions and auditory hallucinations prior to taking medication... However, patient has a long history of medication non-adherence and decompensation which is again resulting in need for psychiatric hospitalization. On the unit, he is with odd behaviors and malodorous (patient did ask for and ostensibly took a shower but emerged remaining malodorous and with matted hair). Patient is currently taking a low dose of Risperdal (though intermittently refused); however this dose is inadequate, patient does not want medication adjustments and refuses long-acting inectable Risperdal which is essential to sustained function in the community; he has no insight at all and keno writer is convinced that patient will stop taking medications (or take them inadequately) immediately if he were to discharge. Invoke HCP: Patient has a signed healthcare proxy on file. Patient is disorganized and unable to function in the community; he does not have capacity to make medical decisions for himself and so keno writer will invoke this healthcare proxy. Hospital course: 07/19 Patient difficult with which to engage and denies all psychiatric symptoms. He says I want to get off medication... [employer] shares his family's concerns about his behaviors but patient tells keno writer I was doing good at home... Patient talking to keno writer holding his hand in front of his mouth. At 1 point patient stopped talking to keno writer completely, keeping his eyes closed but then responded later. Patient does not want to stay in the hospital and [employer] informed patient of involuntary commitment and invoking healthcare proxy. Patient's mother present who gave more collateral. She says that after his last discharge, he refused to get long-acting injectable and would not take medication. In March he took a low dose of Risperdal for 2 days but then not again until a couple of weeks later. At that time he took Risperdal 2 mg b.i.d. for 10 days and she reports it was the best days ever... That patient was doing well. However he stopped medication and again became disorganized. She says that patient has destroyed the apartment and shows keno writer multiple pictures of broken televisions, other furniture, flipping over the refrigerator... Patient opened all the drawers throughout the apartment for some reason leaving them open; took off all the anterior doors off the hinges; she says that he broke the furnace somehow and the apartment complex was without heat; now the upstairs Renter is now moving out because does not want to have to deal with the heat going off. She says he took his bed out and put it in the yd; whenever she buys him food he immediately deems it into the trash. She said over the past couple weeks patient has been increasingly agitated and aggressive, once posturing aggressively towards his father; patient angrily threatened his mom yelling leave this house or I'll push you again... , yelling in her face with spittle coming out of his mouth.. Mother says she is scared, felt threatened and left. She said she called the police who know the family; she reports that patient postured aggressively towards 1 of the police officers but because the officer knew him, told his partner to stand down and they thus brought him to the hospital 07/20 pt remains psychotic, talking to himself; patient is difficult with which to engage. Nursing observing patient cheeking Risperdal and spitting out the garbage. [employer] discussed taking Risperdal with patient who has some ambivalence and told keno writer he would take it but then that he did not want it and needed something that would help [him] both sleep and drive... He then said he would take it even it increased dose of 2 mg b.i.d. -Patient remains with bizarre behaviors. Patient does not look at keno writer when talking; during conversation he will intermittently stop talking in the middle of conversation, stare off, sometimes muttering to himself and then restart talking... Patient lining up sugar packets and cards on his bed in specific ways; in the milieu, keno writer observed patient jumping on a chair and hopping around in the kitchen 07/21 Nursing continue to observe patient cheeking Risperdal than spitting it out. Remains difficult with which to engage and will sometimes not respond to keno writer at all. Remains with odd, behaviors and internally preoccupied -switch to liquid Risperdal 07/22 Patient refused liquid Risperdal last night but took it this morning. Patient tells keno writer he will keep taking the Risperdal, since he likes the taste of the liquid Risperdal. Patient remains with disorganized behaviors; patient laughing out loud. [employer] observed patient going into the kitchen, taking something out of the refrigerator, sitting down in a chair and waiting a few sec and then putting it back in the refrigerator; patient would then going to his room, run around his bed and then back into the kitchen to repeat the same behavior. 07/23 remains disorganized, internally pre-occupied. took risperdal last night and today 07/24 Patient remains with very odd behaviors. On approach, patient turns and quickly walks away; keno writer catches up with patient and he is willing to talk but turns at an angle and looks away while talking. He says he is good and that he just wants some paper to draw. Today patient had white sticky substance covering the length of multiple pigtails in his hair; keno writer asked about this and patient said it was tooth paste. [employer] asked what for and patient said I just woke up this way... He then walks away quickly. -has been taking liquid Risperdal; says he likes the limb and flavored 07/25 pt remains disorganized, psychotic. Explained to pt court tomorrow which he was surprised about (though has been informed). Pt asks to switch from risperdal to ADD medication; then asks to switch to happy medication. He likes the idea of restarting Wellbutrin. Patient stops talking to keno writer and attends to internal stimuli, seemingly oblivious to writers presence...conversation never resumes. Instead, pt continues to draw smilie face's and hearts on a piece of paper over and over Impression: pt remains floridly psychotic with disorganized speech and behavior. Patient cannot distinguish reality from delusion. Pt is fully incapable of caring for himself in the community and would not be able to acquire food or care home on his own; and on his own he would be vulnerable to predation. He has no insight at all into his psychiatric illness or his need for medication and is only taking Liquid Risperdal since he likes the taste of it. Were patient to discharge today, he would very soon cease taking medication. 07/26 c/o nasal congestion; covid/rsv ordered and negative Pt initially refused Risperdal last night but then took it later on. Pt sitting in room, in dark, drawing something that resembles an equation, he says it's something i might make later on Pt said he wanted to talk about discharge and keno writer reminded him about court today and that the calender operator would decide; he said he does not want to attend court due to anxiety Court civilly committed patient involuntarily to treatment with substituted judgment -will start with Uzedy 100mg; this will last for 1 month; anticipating it will take patient at least 1 month to stabilize; plan will be to give patient Uzedy 200mg prior to leaving which will give him a longer period of stability in the community 07/27: Active on unit. guarded. Pt responding with one word answers to questions. Patient reports feeling fine ; pt was informed of Uzedy injection ordered for today. Pt did not acknowledge T/W and proceeded to close eyes. Pt was encouraged to inform RN if he has any questions. 07/28 seems more withdrawn today-one word answers to nursing, questioning provider re dc- CTP 07/29 - better more engagable- talking getting up getting meals= needs adls- CTP 07/30 pt a little more organized in that has conversation for longer. He says he got the shot (ANDRE of risperdal) and is wondering when he can go home. He currently accepts that this can be discussed with him and parents but would like to see pt closer to his regular self. Pt says he is suicidal and can he get on the antidepressant wellbutrin. No plans or intentions, just thoughts but really wants to -start - wellbutrin -still no shower, and disheveled, internally pre-occupied and no insight -start Wellbutrin; pt stable enough continue po risperdal for couple days especially now starting wellbutrin; will soon dc 07/31 SI resolved. although some improvement patient remains disorganized and starts off saying at home he has nothing to do except for singing, dancing and having business ideas... Mom present Discussed mom's concern with Wellbutrin XL causing too much energy verses the SR. Pt however likes the long acting XL 150mg since it lasts all day long. Had the same conversation with mom last admission when patient then also waned 150mg and disagreed with this mom's perspective; that time as now, keno writer, staff do not notice any negative effect. he felt that 100mg did not help his mood enough and did not last as long -Patient had moment of insight and said my tyoughts are too mixed up in my head where i'm not sure what's real anymore....is risperdaone the right medicine? then i'll stay on it...i get lost in this imaginary world -However moments later he said i don't think i have anything (any psych illness) and repeated he does not feel he 08/01Remains disorganized with behavior, internally preoccupied, odd, dancing around the unit; talking to himself at length. met with his mother and patient says he is fine with her being his healthcare proxy in making medical decisions. Patient denies all psychiatric illness and does not think he has a psychiatric problem or that he needs medications. Asks if he can go home today, temporarily accepting that he can not 08/02 Patient wanted Wellbutrin to be discontinued, saying it makes him anxious and that he feels better without it. Also that he likes Seroquel which was started for anxiety and says this is helping. Patient says he is fine asks for discharge but temporarily accept not possible. Remains internally preoccupied talking himself 08/03 Patient asks for Concerta which he says he was on as an adolescent, something to help him focus and to help his mood. [employer] explained what this medication is not currently possible however revisited the idea Wellbutrin. Patient wanted to be back on Wellbutrin but not the long-acting 1, instead the immediate release to which keno writer agreed. Patient again asked for discharge home. [employer] explained why he is not ready with which patient is agreed. [employer] tried some reality testing, reminding patient that he destroyed the apartment he was living in; patient denied this. [employer] explained that his mother had numerous pictures about it and patient said he disagreed but that that is in the past. 08/04: Continue current plans and regimen 08/05: Continue current regimen and plans Impression: Patient remains without any insight at all. He is disorganized and can only remain appropriate for brief interactions. Patient where he would be discharged will not take medications, will not get next long-acting injectable and will remain psychotic, disorganized and unable to function on his own. 08/06 remains without insight; continue current treatment plan 08/07 Patient confused; he keeps asking for Wellbutrin to be discontinued and then to be restarted. He is asking for it to be restarted with the long-acting now. Patient remains briefly able to happen organized discussion but quickly becomes anxious, internally preoccupied. Patient can not seem to talk about psychotic symptoms and on keno writer's inquiry, denies any history of psychotic symptoms including his bizarre and disorganized behavior at home resulting in significant damage to his apartment. -patient continues to ask for Concerta despite having had numerous conversations with keno writer about this; it is keno writer's opinion that patient is being directed by auditory hallucinations regarding Concerta and Wellbutrin 08/08 Patient approaches keno writer to say that he does not think he has a psychiatric illness at all, that he has had no psychotic symptoms however and he just has anxiety. He says he does not think he needs Risperdal and that he will absolutely not take it after he is discharged. [employer] tries to share with him his behaviors when he is off this medication again referring to damaging his apartment however patient explains this by saying it was his 1st apartment, out in his own; then he says he is just a kid though keno writer reminds him that he is 28 years old and that this is not normal behavior. Patient says he disagrees and reiterates that he does not think he needs Risperdal and that he will not be taking it on discharge. 08/09 he refused Wellbutrin; remains change his mind about medications throughout the day; internally preoccupied; confused 08/10 Patient talking about how he does not need Risperdal, does not think he has a psychiatric illness at all; will not take Risperdal on DC; just wants Concerta. Patient not attending to ADLs; malodorous; internally preoccupied 08/11 Today for the 1st time patient acknowledged that he had auditory hallucinations and that he was feeling scared; he himself asked for risperidone p.o.. Patient would not discuss further. Patient later refused risperidone p.o. saying that he wants something for anger, not anxiety... 08/12 Patient continues to be paranoid and anxious with psychotic confusion. Patient himself expressing as much and says that the Risperdal shot is not a high enough dose and should be increased when he gets it next. Patient has been asking for risperidone p.o. and is now asking for it to be scheduled with which keno writer agrees [employer] agrees that current dose of long-acting injectable is either not high enough or has not become effective enough in patient requires additional risperidone to stabilize 08/13 Patient came to ask keno writer for increasing Wellbutrin saying he wants to go to 300 mg and says he feels he needs it to help with his mood. Patient remains guarded around talking about psychotic symptoms but says he likes that the p.o. Risperdal was scheduled has been taking it. [employer] talked about risks of increasing Wellbutrin but patient says he wants to try. -regarding request for Concerta, given patient's continued psychotic symptoms, Concerta risks exacerbating his psychosis and increasing agitation and pushing towards kentrell.. At this time he is not stable on current Uzedy dose. Once patient's psychotic symptoms becomes stabilized, consider can become an option. -it has become increasingly obvious that patient is chasing after symptoms he has a hard time discussing or even identifying; in his psychotic confusion he is asking for changes every day regarding medication. In order to preserve as much autonomy as possible for this patient, keno writer has allowed him have say in decision-making regarding medications like Wellbutrin and PRNs. What has become clear however is what he needs is in increase in Risperdal and that Uzedy 100mg qmonth is not enough. 08/14 patient remains with psychotic symptoms and he himself asks for increase in Risperdal p.o. dose to 3 times a day with which keno writer agrees and feels is necessary as his psychotic symptoms continue. Patient also asks for increase in dose of his p.r.n. Seroquel and hydroxyzine. [employer] will inquire with pharmacist regarding increasing Uzedy dose. 08/15 Patient briefly acknowledged that he did have auditory hallucinations but but not discuss it at all. At 1 point, patient stopped talking mid conversation and was clearly internally preoccupied; he was unaware that keno writer and mother were watching him waiting for him to come out of it. He agreed that he needs increase risperidone and agreed to take it consistently. Patient remains very disorganized in his thinking; he went back and forth, asking for Wellbutrin to be started and then stopped, over and over, changing his mind for various unclear reasons. Patient then pleading to be started on Concerta and could not seem to accept the reasons why this was not an option right now, as it could aggravate already problematic psychotic symptoms. Patient and Patient's mother agreed with plan to increase long-acting injectable Risperdal to 125 mg q.month next week when it comes due. -Discussed case with pharmacist and Risperdal Uzedy dose can be increased to 125 mg q.month (or 250 mg q.2 months). 08/16 A little more calm today. Patient said he took the Wellbutrin and of course the risperidone and feels like it was a good match. He said he feels that is better than Concerta and is fine to remain on this regimen 08/17: Active on unit, social with peers. Patient reports feeling really good today; pt stated, I feel fully recovered. I'm happy about going home next week . denies any issues at this time. denies SI/HI/VH/AH. Continue current tx plan. 08/18- CTP try and keep limits on medication to focus on meds that most likely benefit overall condition tp Impression: Patient remains without any insight at all; he remains with psychotic symptoms, internally preoccupied, odd behaviors, talking to himself. Although he can not discuss her acknowledges these things he is certainly suffering from them and expresses his anxiety. Patient also has psychotic confusion, confused due to internal preoccupations and very likely AH, to the point where patient has nearly the same conversation with keno writer every day and daily changes his mind about how he feels about very small medication changes. Patient received long- acting Risperdal on 07/27, and as it approaches time for next dosing, it appears that this dose is too low (and less likely that it is simply a matter of this dose not having reached his full therapeutic effect). Patient needs Risperdal p.o.. Currently he is amenable to it so will not enforce court order at this time, trying to give him some buy-in; however if he starts to refuse it will need to apply court order. Discussed case with pharmacist and Risperdal Uzedy dose can be increased to 125 mg q.month (or 250 mg q.2 months). Plan: Section 8/ patient involuntary committed with substituted judgment Healthcare proxy affirmed Q 15 minute checks Medications: Risperdal liquid p.o. 2 mg b.i.d.; COURT-ORDERED Seroquel p.r.n. for anxiety +/-Wellbutrin based on pt; ER 150mg daily (pt request this instead of Wellbutrin IR 75 mg daily) Pending: Risperdal Uzedy 125mg on 08/22/24 (on 07/27 received Risperdal Uzedy 100 mg) Past med trials: Vraylar: Did not seem to work Medications on Court-ordered substituted judgment: Risperdal up to 6 mg Uzedy up to 200 mg q.2 months Clozaril Zyprexa Paliperidone/Invega including Trinza Ziprasidone Depakote Patient educated on: medication risk/benefits Informed Consent: further education needed Reason for continued inpatient stay Substantial Risk for: rapid decompensation Time Spent With Patient Time: Total time managing care of this patient today ____ minutes.
[2024-08-19] MEDS: hydrOXYzine HCL 50 MG TABLET PO ×2 (08:04→14:51)
[2024-08-19] MEDS: QUEtiapine Fumarate 50 MG TABLET PO ×2 (08:45→15:21)
[2024-08-19 08:46] VITALS: BP 106/58; PULSE 65; TEMP 36.9; O2SAT 95
[2024-08-19] MEDS: cloNIDine HCL 0.1 MG TABLET PO ×2 (08:46→15:22)
[2024-08-19] MEDS: Nicotine Polacrilex 2 MG GUM 4 MG BUCCAL (10:39)
[2024-08-19 15:22] VITALS: BP 106/55
[2024-08-19 19:45] VITALS: BP 117/65; PULSE 68; TEMP 36.8; O2SAT 97
[2024-08-20 07:52] VITALS: BP 109/61; PULSE 63; RESP 16; TEMP 36.9; O2SAT 98
[2024-08-20] MEDS: risperiDONE Oral Sol 1 MG/ML SOLUTION 2 MG PO ×2 (09:31→16:02)
[2024-08-20] MEDS: buPROPion HCL 75 MG TABLET PO (09:31)
[2024-08-20] MEDS: Nicotine Polacrilex 2 MG GUM 4 MG BUCCAL ×3 (09:31→18:08)
[2024-08-20] MEDS: risperiDONE 0.5 MG TABLET PO (10:53)
[2024-08-20] MEDS: hydrOXYzine HCL 50 MG TABLET PO (10:53)
--- NOTE | 2024-08-20 11:50 | HO.PSYCHPN ---
Subjective Subjective Date of Service: 08/20/24 Reason For Visit: Schizoaffective Disorder, bipolar type Interim History: Patient reports feeling excited about going home; pt stated, I feel good. I'm just waiting to leave. I don't really need anything . denies any issues at this time. denies SI/HI/VH/AH. Continue current tx plan. Medication Compliance: Yes Side effects from medications: No Mental Status Exam Mental Status Exam Narrative: pt is alert and oriented; behavior is cooperative, calm, guarded; dressed in casual attire, messy hair and disheveled, malodorous; mood is described as good , bright; eye contact good; Speech is normal volume and rate, not pressured; focused on discharge. denies SI/HI/VH/AH. Diagnostics Vital Signs (24Hr): Vital Signs - 24 hr 08/19/24 15:22 08/19/24 19:45 08/20/24 07:52 Temperature 98.2 F 98.4 F Pulse Rate 68 63 Respiratory Rate 16 Blood Pressure 106/55 L 117/65 109/61 Pulse Oximetry 97 98 Oxygen Delivery Method Room Air Room Air BMI result Body Mass Index 28.3 Labs 07/17/24 14:49 07/26/24 16:18 Medications Medications Current Medications Acetaminophen (Acetaminophen 325 Mg Tablet) 650 mg PO Q6H PRN PRN Reason: Headache/Pain, Scale 1-10 Al Hydroxide/Mg Hydroxide (Magnesium Hydrox/Alum Hydrox 30 Ml Oral.Susp) 30 ml PO Q6H PRN PRN Reason: Heartburn/Nausea Bupropion HCl (Bupropion Hcl 75 Mg Tablet) 75 mg PO DAILY JESSICA Last Admin: 08/20/24 09:31 Dose: 75 mg Clonidine HCl (Clonidine Hcl 0.1 Mg Tablet) 0.1 mg PO Q4H PRN; Protocol PRN Reason: Anxiety Last Admin: 08/19/24 15:22 Dose: 0.1 mg Hydroxyzine HCl (Hydroxyzine Hcl 50 Mg Tablet) 50 mg PO Q6H PRN PRN Reason: mild anxiety/insomnia Last Admin: 08/20/24 10:53 Dose: 50 mg Magnesium Hydroxide (Milk Of Magnesia 30 Ml Oral.Susp) 30 ml PO DAILY PRN PRN Reason: Constipation Nicotine (Nicotine 21 Mg Patch.Td24) 21 mg TRANSDERMA DAILY PRN PRN Reason: smoking cessation Last Admin: 08/18/24 14:58 Dose: 21 mg Nicotine Polacrilex (Nicotine Polacrilex 2 Mg Gum) 4 mg BUCCAL Q2H PRN PRN Reason: Nicotine Cravings Last Admin: 08/20/24 09:31 Dose: 4 mg Quetiapine Fumarate (Quetiapine Fumarate 50 Mg Tablet) 50 mg PO QID PRN PRN Reason: mod to severe anxiety Last Admin: 08/19/24 15:21 Dose: 50 mg Risperidone (Risperidone 0.5 Mg Tablet) 0.5 mg PO TID PRN PRN Reason: AH/agitation Last Admin: 08/20/24 10:53 Dose: 0.5 mg Risperidone (Risperidone Oral Karen 1 Mg/Ml Solution) 2 mg PO BID@0900,1700 JESSICA Last Admin: 08/20/24 09:31 Dose: 2 mg Sodium Chloride (Sodium Chloride 0.65 % Nasal 44 Ml Sprbtl) 1 spray NOSTRIL-B Q1H PRN PRN Reason: Congestion Trazodone HCl (Trazodone Hcl 50 Mg Tablet) 50 mg PO BEDTIME PRN PRN Reason: Insomnia Last Admin: 07/31/24 20:35 Dose: 50 mg Allergies Allergies Allergy/AdvReac Type Severity Reaction Status Date / Time strawberry Allergy Mild Itching Verified 07/17/24 14:35 cefazolin Allergy Unknown Itching Verified 07/17/24 14:35 sulfamethoxazole Allergy Unknown Itching Verified 07/17/24 14:35 [From Bactrim] trimethoprim [From Bactrim] Allergy Unknown Itching Verified 07/17/24 14:35 lorazepam [From Ativan] AdvReac Agitated Verified 07/17/24 14:35 lithium AdvReac Unknown other Uncoded 11/29/23 21:03 Assessment & Plan Assessment & Plan (1) Schizoaffective disorder, bipolar type: Status: Acute Code(s): F25.0 - Schizoaffective disorder, bipolar type (2) Anxiety: Status: Chronic Code(s): F41.9 - Anxiety disorder, unspecified Plan HPI: Patient is a 28-year-old male with history of schizoaffective disorder, bipolar type, history of polysubstance abuse who presents via EMS for manic and delusional behaviors. Patient is a poor historian, lying in bed, not opening his eyes, and offering little information. Initially, patient was talking with the nurse but 1 minute later, as soon as commercial underwriter walked in to talk with patient, he kept his eyes closed and refused to respond at all to commercial underwriter. A little later on on re-approached, patient is willing to briefly engage. He says that he is doing good. On inquiry, he says I have no idea why he is here in the hospital; commercial underwriter shared that his parents felt he was unsafe, disorganized and destroying property which he denies, even though commercial underwriter mentioned that his mother showed pictures of damaging his apartment. Patient refuses to sign in and remains on a 12 B. Patient took risperidone (he initially spit it out but then took it) this morning and says he will keep taking it but refuses the long-acting injectable. he denies any AVH, SI or HI. Patient's mother, Patsy who is also patient's healthcare proxy reported collateral. She says he has not been taking medications consistently has been very disorganized, has destroyed the apartment that she and her own and pay for, including smashing several television sets, multiple cell phones, refrigerators and other appliances and items, taking off all the door in the apartments (she provided pictures); she says he has been disorganized, not showering at all attending to ADLs, acting confused, and doing strange things such as snorting salt... Patient yelling at her, demanding things such as groceries which she buys and which he then proceeds to throwing the trash... Formulation/clinical reasoning: Patient has well documented history of schizoaffective disorder, bipolar type. Patient had very similar presentation on his last admission January 2024, but responded well with p.o. Risperdal and then on long-acting Risperdal product Uzedy (also on Wellbutrin XL 150 mg), organized, attending to ADLs, in good behavioral and impulse control and even developed some limited insight, briefly acknowledging that he did have paranoid delusions and auditory hallucinations prior to taking medication... However, patient has a long history of medication non-adherence and decompensation which is again resulting in need for psychiatric hospitalization. On the unit, he is with odd behaviors and malodorous (patient did ask for and ostensibly took a shower but emerged remaining malodorous and with matted hair). Patient is currently taking a low dose of Risperdal (though intermittently refused); however this dose is inadequate, patient does not want medication adjustments and refuses long-acting inectable Risperdal which is essential to sustained function in the community; he has no insight at all and commercial underwriter is convinced that patient will stop taking medications (or take them inadequately) immediately if he were to discharge. Invoke HCP: Patient has a signed healthcare proxy on file. Patient is disorganized and unable to function in the community; he does not have capacity to make medical decisions for himself and so commercial underwriter will invoke this healthcare proxy. Hospital course: 07/19 Patient difficult with which to engage and denies all psychiatric symptoms. He says I want to get off medication... Dukey Rider shares his family's concerns about his behaviors but patient tells commercial underwriter I was doing good at home... Patient talking to commercial underwriter holding his hand in front of his mouth. At 1 point patient stopped talking to commercial underwriter completely, keeping his eyes closed but then responded later. Patient does not want to stay in the hospital and Dukey Rider informed patient of involuntary commitment and invoking healthcare proxy. Patient's mother present who gave more collateral. She says that after his last discharge, he refused to get long-acting injectable and would not take medication. In March he took a low dose of Risperdal for 2 days but then not again until a couple of weeks later. At that time he took Risperdal 2 mg b.i.d. for 10 days and she reports it was the best days ever... That patient was doing well. However he stopped medication and again became disorganized. She says that patient has destroyed the apartment and shows commercial underwriter multiple pictures of broken televisions, other furniture, flipping over the refrigerator... Patient opened all the drawers throughout the apartment for some reason leaving them open; took off all the anterior doors off the hinges; she says that he broke the furnace somehow and the apartment complex was without heat; now the upstairs Renter is now moving out because does not want to have to deal with the heat going off. She says he took his bed out and put it in the yd; whenever she buys him food he immediately deems it into the trash. She said over the past couple weeks patient has been increasingly agitated and aggressive, once posturing aggressively towards his father; patient angrily threatened his mom yelling leave this house or I'll push you again... , yelling in her face with spittle coming out of his mouth.. Mother says she is scared, felt threatened and left. She said she called the police who know the family; she reports that patient postured aggressively towards 1 of the police officers but because the officer knew him, told his partner to stand down and they thus brought him to the hospital 07/20 pt remains psychotic, talking to himself; patient is difficult with which to engage. Nursing observing patient cheeking Risperdal and spitting out the garbage. Dukey Rider discussed taking Risperdal with patient who has some ambivalence and told commercial underwriter he would take it but then that he did not want it and needed something that would help [him] both sleep and drive... He then said he would take it even it increased dose of 2 mg b.i.d. -Patient remains with bizarre behaviors. Patient does not look at commercial underwriter when talking; during conversation he will intermittently stop talking in the middle of conversation, stare off, sometimes muttering to himself and then restart talking... Patient lining up sugar packets and cards on his bed in specific ways; in the milieu, commercial underwriter observed patient jumping on a chair and hopping around in the kitchen 07/21 Nursing continue to observe patient cheeking Risperdal than spitting it out. Remains difficult with which to engage and will sometimes not respond to commercial underwriter at all. Remains with odd, behaviors and internally preoccupied -switch to liquid Risperdal 07/22 Patient refused liquid Risperdal last night but took it this morning. Patient tells commercial underwriter he will keep taking the Risperdal, since he likes the taste of the liquid Risperdal. Patient remains with disorganized behaviors; patient laughing out loud. Dukey Rider observed patient going into the kitchen, taking something out of the refrigerator, sitting down in a chair and waiting a few sec and then putting it back in the refrigerator; patient would then going to his room, run around his bed and then back into the kitchen to repeat the same behavior. 07/23 remains disorganized, internally pre-occupied. took risperdal last night and today 07/24 Patient remains with very odd behaviors. On approach, patient turns and quickly walks away; commercial underwriter catches up with patient and he is willing to talk but turns at an angle and looks away while talking. He says he is good and that he just wants some paper to draw. Today patient had white sticky substance covering the length of multiple pigtails in his hair; commercial underwriter asked about this and patient said it was tooth paste. Dukey Rider asked what for and patient said I just woke up this way... He then walks away quickly. -has been taking liquid Risperdal; says he likes the limb and flavored 07/25 pt remains disorganized, psychotic. Explained to pt court tomorrow which he was surprised about (though has been informed). Pt asks to switch from risperdal to ADD medication; then asks to switch to happy medication. He likes the idea of restarting Wellbutrin. Patient stops talking to commercial underwriter and attends to internal stimuli, seemingly oblivious to writers presence...conversation never resumes. Instead, pt continues to draw smilie face's and hearts on a piece of paper over and over Impression: pt remains floridly psychotic with disorganized speech and behavior. Patient cannot distinguish reality from delusion. Pt is fully incapable of caring for himself in the community and would not be able to acquire food or long term on his own; and on his own he would be vulnerable to predation. He has no insight at all into his psychiatric illness or his need for medication and is only taking Liquid Risperdal since he likes the taste of it. Were patient to discharge today, he would very soon cease taking medication. 07/26 c/o nasal congestion; covid/rsv ordered and negative Pt initially refused Risperdal last night but then took it later on. Pt sitting in room, in dark, drawing something that resembles an equation, he says it's something i might make later on Pt said he wanted to talk about discharge and commercial underwriter reminded him about court today and that the immigration judge would decide; he said he does not want to attend court due to anxiety Court civilly committed patient involuntarily to treatment with substituted judgment -will start with Uzedy 100mg; this will last for 1 month; anticipating it will take patient at least 1 month to stabilize; plan will be to give patient Uzedy 200mg prior to leaving which will give him a longer period of stability in the community 07/27: Active on unit. guarded. Pt responding with one word answers to questions. Patient reports feeling fine ; pt was informed of Uzedy injection ordered for today. Pt did not acknowledge T/W and proceeded to close eyes. Pt was encouraged to inform RN if he has any questions. 07/28 seems more withdrawn today-one word answers to nursing, questioning provider re dc- CTP 07/29 - better more engagable- talking getting up getting meals= needs adls- CTP 07/30 pt a little more organized in that has conversation for longer. He says he got the shot (ANDRE of risperdal) and is wondering when he can go home. He currently accepts that this can be discussed with him and parents but would like to see pt closer to his regular self. Pt says he is suicidal and can he get on the antidepressant wellbutrin. No plans or intentions, just thoughts but really wants to -start - wellbutrin -still no shower, and disheveled, internally pre-occupied and no insight -start Wellbutrin; pt stable enough continue po risperdal for couple days especially now starting wellbutrin; will soon dc 07/31 SI resolved. although some improvement patient remains disorganized and starts off saying at home he has nothing to do except for singing, dancing and having business ideas... Mom present Discussed mom's concern with Wellbutrin XL causing too much energy verses the SR. Pt however likes the long acting XL 150mg since it lasts all day long. Had the same conversation with mom last admission when patient then also waned 150mg and disagreed with this mom's perspective; that time as now, commercial underwriter, staff do not notice any negative effect. he felt that 100mg did not help his mood enough and did not last as long -Patient had moment of insight and said my tyoughts are too mixed up in my head where i'm not sure what's real anymore....is risperdaone the right medicine? then i'll stay on it...i get lost in this imaginary world -However moments later he said i don't think i have anything (any psych illness) and repeated he does not feel he 08/01Remains disorganized with behavior, internally preoccupied, odd, dancing around the unit; talking to himself at length. met with his mother and patient says he is fine with her being his healthcare proxy in making medical decisions. Patient denies all psychiatric illness and does not think he has a psychiatric problem or that he needs medications. Asks if he can go home today, temporarily accepting that he can not 08/02 Patient wanted Wellbutrin to be discontinued, saying it makes him anxious and that he feels better without it. Also that he likes Seroquel which was started for anxiety and says this is helping. Patient says he is fine asks for discharge but temporarily accept not possible. Remains internally preoccupied talking himself 08/03 Patient asks for Concerta which he says he was on as an adolescent, something to help him focus and to help his mood. Dukey Rider explained what this medication is not currently possible however revisited the idea Wellbutrin. Patient wanted to be back on Wellbutrin but not the long-acting 1, instead the immediate release to which commercial underwriter agreed. Patient again asked for discharge home. Dukey Rider explained why he is not ready with which patient is agreed. Dukey Rider tried some reality testing, reminding patient that he destroyed the apartment he was living in; patient denied this. Dukey Rider explained that his mother had numerous pictures about it and patient said he disagreed but that that is in the past. 08/04: Continue current plans and regimen 08/05: Continue current regimen and plans Impression: Patient remains without any insight at all. He is disorganized and can only remain appropriate for brief interactions. Patient where he would be discharged will not take medications, will not get next long-acting injectable and will remain psychotic, disorganized and unable to function on his own. 08/06 remains without insight; continue current treatment plan 08/07 Patient confused; he keeps asking for Wellbutrin to be discontinued and then to be restarted. He is asking for it to be restarted with the long-acting now. Patient remains briefly able to happen organized discussion but quickly becomes anxious, internally preoccupied. Patient can not seem to talk about psychotic symptoms and on commercial underwriter's inquiry, denies any history of psychotic symptoms including his bizarre and disorganized behavior at home resulting in significant damage to his apartment. -patient continues to ask for Concerta despite having had numerous conversations with commercial underwriter about this; it is commercial underwriter's opinion that patient is being directed by auditory hallucinations regarding Concerta and Wellbutrin 08/08 Patient approaches commercial underwriter to say that he does not think he has a psychiatric illness at all, that he has had no psychotic symptoms however and he just has anxiety. He says he does not think he needs Risperdal and that he will absolutely not take it after he is discharged. Dukey Rider tries to share with him his behaviors when he is off this medication again referring to damaging his apartment however patient explains this by saying it was his 1st apartment, out in his own; then he says he is just a kid though commercial underwriter reminds him that he is 28 years old and that this is not normal behavior. Patient says he disagrees and reiterates that he does not think he needs Risperdal and that he will not be taking it on discharge. 08/09 he refused Wellbutrin; remains change his mind about medications throughout the day; internally preoccupied; confused 08/10 Patient talking about how he does not need Risperdal, does not think he has a psychiatric illness at all; will not take Risperdal on DC; just wants Concerta. Patient not attending to ADLs; malodorous; internally preoccupied 08/11 Today for the 1st time patient acknowledged that he had auditory hallucinations and that he was feeling scared; he himself asked for risperidone p.o.. Patient would not discuss further. Patient later refused risperidone p.o. saying that he wants something for anger, not anxiety... 08/12 Patient continues to be paranoid and anxious with psychotic confusion. Patient himself expressing as much and says that the Risperdal shot is not a high enough dose and should be increased when he gets it next. Patient has been asking for risperidone p.o. and is now asking for it to be scheduled with which commercial underwriter agrees Dukey Rider agrees that current dose of long-acting injectable is either not high enough or has not become effective enough in patient requires additional risperidone to stabilize 08/13 Patient came to ask commercial underwriter for increasing Wellbutrin saying he wants to go to 300 mg and says he feels he needs it to help with his mood. Patient remains guarded around talking about psychotic symptoms but says he likes that the p.o. Risperdal was scheduled has been taking it. Dukey Rider talked about risks of increasing Wellbutrin but patient says he wants to try. -regarding request for Concerta, given patient's continued psychotic symptoms, Concerta risks exacerbating his psychosis and increasing agitation and pushing towards kentrell.. At this time he is not stable on current Uzedy dose. Once patient's psychotic symptoms becomes stabilized, consider can become an option. -it has become increasingly obvious that patient is chasing after symptoms he has a hard time discussing or even identifying; in his psychotic confusion he is asking for changes every day regarding medication. In order to preserve as much autonomy as possible for this patient, commercial underwriter has allowed him have say in decision-making regarding medications like Wellbutrin and PRNs. What has become clear however is what he needs is in increase in Risperdal and that Uzedy 100mg qmonth is not enough. 08/14 patient remains with psychotic symptoms and he himself asks for increase in Risperdal p.o. dose to 3 times a day with which commercial underwriter agrees and feels is necessary as his psychotic symptoms continue. Patient also asks for increase in dose of his p.r.n. Seroquel and hydroxyzine. Dukey Rider will inquire with pharmacist regarding increasing Uzedy dose. 08/15 Patient briefly acknowledged that he did have auditory hallucinations but but not discuss it at all. At 1 point, patient stopped talking mid conversation and was clearly internally preoccupied; he was unaware that commercial underwriter and mother were watching him waiting for him to come out of it. He agreed that he needs increase risperidone and agreed to take it consistently. Patient remains very disorganized in his thinking; he went back and forth, asking for Wellbutrin to be started and then stopped, over and over, changing his mind for various unclear reasons. Patient then pleading to be started on Concerta and could not seem to accept the reasons why this was not an option right now, as it could aggravate already problematic psychotic symptoms. Patient and Patient's mother agreed with plan to increase long-acting injectable Risperdal to 125 mg q.month next week when it comes due. -Discussed case with pharmacist and Risperdal Uzedy dose can be increased to 125 mg q.month (or 250 mg q.2 months). 08/16 A little more calm today. Patient said he took the Wellbutrin and of course the risperidone and feels like it was a good match. He said he feels that is better than Concerta and is fine to remain on this regimen 08/17: Active on unit, social with peers. Patient reports feeling really good today; pt stated, I feel fully recovered. I'm happy about going home next week . denies any issues at this time. denies SI/HI/VH/AH. Continue current tx plan. 08/18- CTP try and keep limits on medication to focus on meds that most likely benefit overall condition tp 08/20: Patient reports feeling excited about going home; pt stated, I feel good. I'm just waiting to leave. I don't really need anything . denies any issues at this time. denies SI/HI/VH/AH. Continue current tx plan Impression: Patient remains without any insight at all; he remains with psychotic symptoms, internally preoccupied, odd behaviors, talking to himself. Although he can not discuss her acknowledges these things he is certainly suffering from them and expresses his anxiety. Patient also has psychotic confusion, confused due to internal preoccupations and very likely AH, to the point where patient has nearly the same conversation with commercial underwriter every day and daily changes his mind about how he feels about very small medication changes. Patient received long-acting Risperdal on 07/27, and as it approaches time for next dosing, it appears that this dose is too low (and less likely that it is simply a matter of this dose not having reached his full therapeutic effect). Patient needs Risperdal p.o.. Currently he is amenable to it so will not enforce court order at this time, trying to give him some buy-in; however if he starts to refuse it will need to apply court order. Discussed case with pharmacist and Risperdal Uzedy dose can be increased to 125 mg q.month (or 250 mg q.2 months). Plan: Section 8/ patient involuntary committed with substituted judgment Healthcare proxy affirmed Q 15 minute checks Medications: Risperdal liquid p.o. 2 mg b[address]i.d.; COURT-ORDERED Seroquel p.r.n. for anxiety +/-Wellbutrin based on pt; ER 150mg daily (pt request this instead of Wellbutrin IR 75 mg daily) Pending: Risperdal Uzedy 125mg on 08/22/24 (on 07/27 received Risperdal Uzedy 100 mg) Past med trials: Vrcelestinelar: Did not seem to work Medications on Court-ordered substituted judgment: Risperdal up to 6 mg Uzedy up to 200 mg q.2 months Clozaril Zyprexa Paliperidone/Invega including Trinza Ziprasidone Depakote Patient educated on: medication risk/benefits Reason for continued inpatient stay Substantial Risk for: med/psych decompensation Time Spent With Patient Time: Total time managing care of this patient today _10___ minutes.
[2024-08-20 20:00] VITALS: BP 133/61; PULSE 89; TEMP 37; O2SAT 98
[2024-08-21 08:00] VITALS: BP 109/57; PULSE 69; TEMP 36.4; O2SAT 96
[2024-08-21] MEDS: risperiDONE Oral Sol 1 MG/ML SOLUTION 2 MG PO ×2 (08:59→17:13)
[2024-08-21] MEDS: buPROPion HCL 75 MG TABLET PO ×2 (08:59→14:58)
[2024-08-21] MEDS: Nicotine Polacrilex 2 MG GUM 4 MG BUCCAL (09:29)
--- NOTE | 2024-08-21 10:05 | P.PNPSI_ITS ---
Subjective Subjective Date of Service: 08/21/24 Reason For Visit: Schizoaffective Disorder, bipolar type Interim History: met with pt; discussed with team; reviewed chart Patient remains improved and feels that added Risperdal has been helping; mother agrees. Patient says he will continue taking Risperdal long-acting injectable and agrees to increase dose to 125 mg; mother agrees also and as her healthcare proxy was affirmed, she signed a CV which was accepted, ending court order. Also discussed Wellbutrin and both agreed to start on SR 100 mg. Mental Status Exam Mental Status Exam Narrative: Pt is alert and oriented; behavior is cooperative, mostly calm; still odd behaviors, talking to himself, not bathing; but can can only tolerate short interactions; patient is not in distress; dressed in casual attire, messy hair and malodorous; mood is described as good and affect more calm; eye contact improved; Speech is normal volume and rate; no psychomotor agitation; thought process is more goal directed but concrete; Thought content is on discharge; still appears internally preoccupied; denies SI; no HI; Denies AVH however patient appears to be intermittently responding to internal stimuli. Patients insight and judgment impaired but improved and adequate. Diagnostics Vital Signs (24Hr): Vital Signs - 24 hr 08/20/24 20:00 08/21/24 08:00 Temperature 98.6 F 97.6 F Pulse Rate 89 69 Blood Pressure 133/61 109/57 L Pulse Oximetry 98 96 Oxygen Delivery Method Room Air Room Air BMI result Body Mass Index 28.3 Labs 07/17/24 14:49 07/26/24 16:18 Medications Medications Current Medications Acetaminophen (Acetaminophen 325 Mg Tablet) 650 mg PO Q6H PRN PRN Reason: Headache/Pain, Scale 1-10 Al Hydroxide/Mg Hydroxide (Magnesium Hydrox/Alum Hydrox 30 Ml Oral.Susp) 30 ml PO Q6H PRN PRN Reason: Heartburn/Nausea Bupropion HCl (Bupropion Hcl 75 Mg Tablet) 75 mg PO DAILY JESSICA Last Admin: 08/21/24 08:59 Dose: 75 mg Clonidine HCl (Clonidine Hcl 0.1 Mg Tablet) 0.1 mg PO Q4H PRN; Protocol PRN Reason: Anxiety Last Admin: 08/19/24 15:22 Dose: 0.1 mg Hydroxyzine HCl (Hydroxyzine Hcl 50 Mg Tablet) 50 mg PO Q6H PRN PRN Reason: mild anxiety/insomnia Last Admin: 08/20/24 10:53 Dose: 50 mg Magnesium Hydroxide (Milk Of Magnesia 30 Ml Oral.Susp) 30 ml PO DAILY PRN PRN Reason: Constipation Nicotine (Nicotine 21 Mg Patch.Td24) 21 mg TRANSDERMA DAILY PRN PRN Reason: smoking cessation Last Admin: 08/18/24 14:58 Dose: 21 mg Nicotine Polacrilex (Nicotine Polacrilex 2 Mg Gum) 4 mg BUCCAL Q2H PRN PRN Reason: Nicotine Cravings Last Admin: 08/21/24 09:29 Dose: 4 mg Quetiapine Fumarate (Quetiapine Fumarate 50 Mg Tablet) 50 mg PO QID PRN PRN Reason: mod to severe anxiety Last Admin: 08/19/24 15:21 Dose: 50 mg Risperidone (Risperidone 0.5 Mg Tablet) 0.5 mg PO TID PRN PRN Reason: AH/agitation Last Admin: 08/20/24 10:53 Dose: 0.5 mg Risperidone (Risperidone Oral Karen 1 Mg/Ml Solution) 2 mg PO BID@0900,1700 JESSICA Last Admin: 08/21/24 08:59 Dose: 2 mg Sodium Chloride (Sodium Chloride 0.65 % Nasal 44 Ml Sprbtl) 1 spray NOSTRIL-B Q1H PRN PRN Reason: Congestion Trazodone HCl (Trazodone Hcl 50 Mg Tablet) 50 mg PO BEDTIME PRN PRN Reason: Insomnia Last Admin: 07/31/24 20:35 Dose: 50 mg Allergies Allergies Allergy/AdvReac Type Severity Reaction Status Date / Time strawberry Allergy Mild Itching Verified 07/17/24 14:35 cefazolin Allergy Unknown Itching Verified 07/17/24 14:35 sulfamethoxazole Allergy Unknown Itching Verified 07/17/24 14:35 [From Bactrim] trimethoprim [From Bactrim] Allergy Unknown Itching Verified 07/17/24 14:35 lorazepam [From Ativan] AdvReac Agitated Verified 07/17/24 14:35 lithium AdvReac Unknown other Uncoded 11/29/23 21:03 Assessment & Plan Assessment & Plan (1) Schizoaffective disorder, bipolar type: Status: Acute Code(s): F25.0 - Schizoaffective disorder, bipolar type (2) Anxiety: Status: Chronic Code(s): F41.9 - Anxiety disorder, unspecified Plan HPI: Patient is a 28-year-old male with history of schizoaffective disorder, bipolar type, history of polysubstance abuse who presents via EMS for manic and delusional behaviors. Patient is a poor historian, lying in bed, not opening his eyes, and offering little information. Initially, patient was talking with the nurse but 1 minute later, as soon as script writer walked in to talk with patient, he kept his eyes closed and refused to respond at all to script writer. A little later on on re-approached, patient is willing to briefly engage. He says that he is doing good. On inquiry, he says I have no idea why he is here in the hospital; script writer shared that his parents felt he was unsafe, disorganized and destroying property which he denies, even though script writer mentioned that his mother showed pictures of damaging his apartment. Patient refuses to sign in and remains on a 12 B. Patient took risperidone (he initially spit it out but then took it) this morning and says he will keep taking it but refuses the long- acting injectable. he denies any AVH, SI or HI. Patient's mother, Patsy who is also patient's healthcare proxy reported collateral. She says he has not been taking medications consistently has been very disorganized, has destroyed the apartment that she and her own and pay for, including smashing several television sets, multiple cell phones, refrigerators and other appliances and items, taking off all the door in the apartments (she provided pictures); she says he has been disorganized, not showering at all attending to ADLs, acting confused, and doing strange things such as snorting salt... Patient yelling at her, demanding things such as groceries which she buys and which he then proceeds to throwing the trash... Formulation/clinical reasoning: Patient has well documented history of schizoaffective disorder, bipolar type. Patient had very similar presentation on his last admission January 2024, but responded well with p.o. Risperdal and then on long-acting Risperdal product Uzedy (also on Wellbutrin XL 150 mg), organized, attending to ADLs, in good behavioral and impulse control and even developed some limited insight, briefly acknowledging that he did have paranoid delusions and auditory hallucinations prior to taking medication... However, patient has a long history of medication non-adherence and decompensation which is again resulting in need for psychiatric hospitalization. On the unit, he is with odd behaviors and malodorous (patient did ask for and ostensibly took a shower but emerged remaining malodorous and with matted hair). Patient is currently taking a low dose of Risperdal (though intermittently refused); however this dose is inadequate, patient does not want medication adjustments and refuses long-acting inectable Risperdal which is essential to sustained function in the community; he has no insight at all and script writer is convinced that patient will stop taking medications (or take them inadequately) immediately if he were to discharge. Invoke HCP: Patient has a signed healthcare proxy on file. Patient is disorganized and unable to function in the community; he does not have capacity to make medical decisions for himself and so script writer will invoke this healthcare proxy. Hospital course: 07/19 Patient difficult with which to engage and denies all psychiatric symptoms. He says I want to get off medication... Treatment Supervisor shares his family's concerns about his behaviors but patient tells script writer I was doing good at home... Patient talking to script writer holding his hand in front of his mouth. At 1 point patient stopped talking to script writer completely, keeping his eyes closed but then responded later. Patient does not want to stay in the hospital and Treatment Supervisor informed patient of involuntary commitment and invoking healthcare proxy. Patient's mother present who gave more collateral. She says that after his last discharge, he refused to get long-acting injectable and would not take medication. In March he took a low dose of Risperdal for 2 days but then not again until a couple of weeks later. At that time he took Risperdal 2 mg b.i.d. for 10 days and she reports it was the best days ever... That patient was doing well. However he stopped medication and again became disorganized. She says that patient has destroyed the apartment and shows script writer multiple pictures of broken televisions, other furniture, flipping over the refrigerator... Patient opened all the drawers throughout the apartment for some reason leaving them open; took off all the anterior doors off the hinges; she says that he broke the furnace somehow and the apartment complex was without heat; now the upstairs Renter is now moving out because does not want to have to deal with the heat going off. She says he took his bed out and put it in the yd; whenever she buys him food he immediately deems it into the trash. She said over the past couple weeks patient has been increasingly agitated and aggressive, once posturing aggressively towards his father; patient angrily threatened his mom yelling leave this house or I'll push you again... , yelling in her face with spittle coming out of his mouth.. Mother says she is scared, felt threatened and left. She said she called the police who know the family; she reports that patient postured aggressively towards 1 of the police officers but because the officer knew him, told his partner to stand down and they thus brought him to the hospital 07/20 pt remains psychotic, talking to himself; patient is difficult with which to engage. Nursing observing patient cheeking Risperdal and spitting out the garbage. Treatment Supervisor discussed taking Risperdal with patient who has some ambivalence and told script writer he would take it but then that he did not want it and needed something that would help [him] both sleep and drive... He then said he would take it even it increased dose of 2 mg b.i.d. -Patient remains with bizarre behaviors. Patient does not look at script writer when talking; during conversation he will intermittently stop talking in the middle of conversation, stare off, sometimes muttering to himself and then restart talking... Patient lining up sugar packets and cards on his bed in specific ways; in the milieu, script writer observed patient jumping on a chair and hopping around in the kitchen 07/21 Nursing continue to observe patient cheeking Risperdal than spitting it out. Remains difficult with which to engage and will sometimes not respond to script writer at all. Remains with odd, behaviors and internally preoccupied -switch to liquid Risperdal 07/22 Patient refused liquid Risperdal last night but took it this morning. Patient tells script writer he will keep taking the Risperdal, since he likes the taste of the liquid Risperdal. Patient remains with disorganized behaviors; patient laughing out loud. Treatment Supervisor observed patient going into the kitchen, taking something out of the refrigerator, sitting down in a chair and waiting a few sec and then putting it back in the refrigerator; patient would then going to his room, run around his bed and then back into the kitchen to repeat the same behavior. 07/23 remains disorganized, internally pre-occupied. took risperdal last night and today 07/24 Patient remains with very odd behaviors. On approach, patient turns and quickly walks away; script writer catches up with patient and he is willing to talk but turns at an angle and looks away while talking. He says he is good and that he just wants some paper to draw. Today patient had white sticky substance covering the length of multiple pigtails in his hair; script writer asked about this and patient said it was tooth paste. Treatment Supervisor asked what for and patient said I just woke up this way... He then walks away quickly. -has been taking liquid Risperdal; says he likes the limb and flavored 07/25 pt remains disorganized, psychotic. Explained to pt court tomorrow which he was surprised about (though has been informed). Pt asks to switch from risperdal to ADD medication; then asks to switch to happy medication. He likes the idea of restarting Wellbutrin. Patient stops talking to script writer and attends to internal stimuli, seemingly oblivious to writers presence...conversation never resumes. Instead, pt continues to draw smilie face's and hearts on a piece of paper over and over Impression: pt remains floridly psychotic with disorganized speech and behavior. Patient cannot distinguish reality from delusion. Pt is fully incapable of caring for himself in the community and would not be able to acquire food or long term on his own; and on his own he would be vulnerable to predation. He has no insight at all into his psychiatric illness or his need for medication and is only taking Liquid Risperdal since he likes the taste of it. Were patient to discharge today, he would very soon cease taking medication. 07/26 c/o nasal congestion; covid/rsv ordered and negative Pt initially refused Risperdal last night but then took it later on. Pt sitting in room, in dark, drawing something that resembles an equation, he says it's something i might make later on Pt said he wanted to talk about discharge and script writer reminded him about court today and that the oiler and greaser would decide; he said he does not want to attend court due to anxiety Court civilly committed patient involuntarily to treatment with substituted judgment -will start with Uzedy 100mg; this will last for 1 month; anticipating it will take patient at least 1 month to stabilize; plan will be to give patient Uzedy 200mg prior to leaving which will give him a longer period of stability in the community 07/27: Active on unit. guarded. Pt responding with one word answers to questions. Patient reports feeling fine ; pt was informed of Uzedy injection ordered for today. Pt did not acknowledge T/W and proceeded to close eyes. Pt was encouraged to inform RN if he has any questions. 07/28 seems more withdrawn today-one word answers to nursing, questioning provider re dc- CTP 07/29 - better more engagable- talking getting up getting meals= needs adls- CTP 07/30 pt a little more organized in that has conversation for longer. He says he got the shot (ANDRE of risperdal) and is wondering when he can go home. He currently accepts that this can be discussed with him and parents but would like to see pt closer to his regular self. Pt says he is suicidal and can he get on the antidepressant wellbutrin. No plans or intentions, just thoughts but really wants to -start - wellbutrin -still no shower, and disheveled, internally pre-occupied and no insight -start Wellbutrin; pt stable enough continue po risperdal for couple days especially now starting wellbutrin; will soon dc 07/31 SI resolved. although some improvement patient remains disorganized and starts off saying at home he has nothing to do except for singing, dancing and having business ideas... Mom present Discussed mom's concern with Wellbutrin XL causing too much energy verses the SR. Pt however likes the long acting XL 150mg since it lasts all day long. Had the same conversation with mom last admission when patient then also waned 150mg and disagreed with this mom's perspective; that time as now, script writer, staff do not notice any negative effect. he felt that 100mg did not help his mood enough and did not last as long -Patient had moment of insight and said my tyoughts are too mixed up in my head where i'm not sure what's real anymore....is risperdaone the right medicine? then i'll stay on it...i get lost in this imaginary world -However moments later he said i don't think i have anything (any psych illness) and repeated he does not feel he 08/01Remains disorganized with behavior, internally preoccupied, odd, dancing around the unit; talking to himself at length. met with his mother and patient says he is fine with her being his healthcare proxy in making medical decisions. Patient denies all psychiatric illness and does not think he has a psychiatric problem or that he needs medications. Asks if he can go home today, temporarily accepting that he can not 08/02 Patient wanted Wellbutrin to be discontinued, saying it makes him anxious and that he feels better without it. Also that he likes Seroquel which was started for anxiety and says this is helping. Patient says he is fine asks for discharge but temporarily accept not possible. Remains internally preoccupied talking himself 08/03 Patient asks for Concerta which he says he was on as an adolescent, something to help him focus and to help his mood. Treatment Supervisor explained what this medication is not currently possible however revisited the idea Wellbutrin. Patient wanted to be back on Wellbutrin but not the long-acting 1, instead the immediate release to which script writer agreed. Patient again asked for discharge home. Treatment Supervisor explained why he is not ready with which patient is agreed. Treatment Supervisor tried some reality testing, reminding patient that he destroyed the apartment he was living in; patient denied this. Treatment Supervisor explained that his mother had numerous pictures about it and patient said he disagreed but that that is in the past. 08/04: Continue current plans and regimen 08/05: Continue current regimen and plans Impression: Patient remains without any insight at all. He is disorganized and can only remain appropriate for brief interactions. Patient where he would be discharged will not take medications, will not get next long-acting injectable and will remain psychotic, disorganized and unable to function on his own. 08/06 remains without insight; continue current treatment plan 08/07 Patient confused; he keeps asking for Wellbutrin to be discontinued and then to be restarted. He is asking for it to be restarted with the long-acting now. Patient remains briefly able to happen organized discussion but quickly becomes anxious, internally preoccupied. Patient can not seem to talk about psychotic symptoms and on script writer's inquiry, denies any history of psychotic symptoms including his bizarre and disorganized behavior at home resulting in significant damage to his apartment. -patient continues to ask for Concerta despite having had numerous conversations with script writer about this; it is script writer's opinion that patient is being directed by auditory hallucinations regarding Concerta and Wellbutrin 08/08 Patient approaches script writer to say that he does not think he has a psychiatric illness at all, that he has had no psychotic symptoms however and he just has anxiety. He says he does not think he needs Risperdal and that he will absolutely not take it after he is discharged. Treatment Supervisor tries to share with him his behaviors when he is off this medication again referring to damaging his apartment however patient explains this by saying it was his 1st apartment, out in his own; then he says he is just a kid though script writer reminds him that he is 28 years old and that this is not normal behavior. Patient says he disagrees and reiterates that he does not think he needs Risperdal and that he will not be taking it on discharge. 08/09 he refused Wellbutrin; remains change his mind about medications throughout the day; internally preoccupied; confused 08/10 Patient talking about how he does not need Risperdal, does not think he has a psychiatric illness at all; will not take Risperdal on DC; just wants Concerta. Patient not attending to ADLs; malodorous; internally preoccupied 08/11 Today for the 1st time patient acknowledged that he had auditory hallucinations and that he was feeling scared; he himself asked for risperidone p.o.. Patient would not discuss further. Patient later refused risperidone p.o. saying that he wants something for anger, not anxiety... 08/12 Patient continues to be paranoid and anxious with psychotic confusion. Patient himself expressing as much and says that the Risperdal shot is not a high enough dose and should be increased when he gets it next. Patient has been asking for risperidone p.o. and is now asking for it to be scheduled with which script writer agrees Treatment Supervisor agrees that current dose of long-acting injectable is either not high enough or has not become effective enough in patient requires additional risperidone to stabilize 08/13 Patient came to ask script writer for increasing Wellbutrin saying he wants to go to 300 mg and says he feels he needs it to help with his mood. Patient remains guarded around talking about psychotic symptoms but says he likes that the p.o. Risperdal was scheduled has been taking it. Treatment Supervisor talked about risks of increasing Wellbutrin but patient says he wants to try. -regarding request for Concerta, given patient's continued psychotic symptoms, Concerta risks exacerbating his psychosis and increasing agitation and pushing towards kentrell.. At this time he is not stable on current Uzedy dose. Once patient's psychotic symptoms becomes stabilized, consider can become an option. -it has become increasingly obvious that patient is chasing after symptoms he has a hard time discussing or even identifying; in his psychotic confusion he is asking for changes every day regarding medication. In order to preserve as much autonomy as possible for this patient, script writer has allowed him have say in decision-making regarding medications like Wellbutrin and PRNs. What has become clear however is what he needs is in increase in Risperdal and that Uzedy 100mg qmonth is not enough. 08/14 patient remains with psychotic symptoms and he himself asks for increase in Risperdal p.o. dose to 3 times a day with which script writer agrees and feels is necessary as his psychotic symptoms continue. Patient also asks for increase in dose of his p.r.n. Seroquel and hydroxyzine. Treatment Supervisor will inquire with pharmacist regarding increasing Uzedy dose. 08/15 Patient briefly acknowledged that he did have auditory hallucinations but but not discuss it at all. At 1 point, patient stopped talking mid conversation and was clearly internally preoccupied; he was unaware that script writer and mother were watching him waiting for him to come out of it. He agreed that he needs increase risperidone and agreed to take it consistently. Patient remains very disorganized in his thinking; he went back and forth, asking for Wellbutrin to be started and then stopped, over and over, changing his mind for various unclear reasons. Patient then pleading to be started on Concerta and could not seem to accept the reasons why this was not an option right now, as it could aggravate already problematic psychotic symptoms. Patient and Patient's mother agreed with plan to increase long-acting injectable Risperdal to 125 mg q.month next week when it comes due. -Discussed case with pharmacist and Risperdal Uzedy dose can be increased to 125 mg q.month (or 250 mg q.2 months). 08/16 A little more calm today. Patient said he took the Wellbutrin and of course the risperidone and feels like it was a good match. He said he feels that is better than Concerta and is fine to remain on this regimen 08/17: Active on unit, social with peers. Patient reports feeling really good today; pt stated, I feel fully recovered. I'm happy about going home next week . denies any issues at this time. denies SI/HI/VH/AH. Continue current tx plan. 08/18- CTP try and keep limits on medication to focus on meds that most likely benefit overall condition tp 08/20: Patient reports feeling excited about going home; pt stated, I feel good. I'm just waiting to leave. I don't really need anything . denies any issues at this time. denies SI/HI/VH/AH. Continue current tx plan Impression: Patient remains without any insight at all; he remains with psychotic symptoms, internally preoccupied, odd behaviors, talking to himself. Although he can not discuss her acknowledges these things he is certainly suffering from them and expresses his anxiety. Patient also has psychotic confusion, confused due to internal preoccupations and very likely AH, to the point where patient has nearly the same conversation with script writer every day and daily changes his mind about how he feels about very small medication changes. Patient received long- acting Risperdal on 07/27, and as it approaches time for next dosing, it appears that this dose is too low (and less likely that it is simply a matter of this dose not having reached his full therapeutic effect). Patient needs Risperdal p.o.. Currently he is amenable to it so will not enforce court order at this time, trying to give him some buy-in; however if he starts to refuse it will need to apply court order. Discussed case with pharmacist and Risperdal Uzedy dose can be increased to 125 mg q.month (or 250 mg q.2 months). 08/21 Patient remains improved and feels that added Risperdal has been helping; mother agrees. Patient says he will continue taking Risperdal long-acting injectable and agrees to increase dose to 125 mg; mother agrees also and as her healthcare proxy was affirmed, she signed a CV which was accepted, ending court order. Also discussed Wellbutrin and both agreed to start on SR 100 mg. -patient has seemed to improve from added Risperdal p.o., sitting and talking more calmly and for longer; still with some disorganization and malodorous but good enough. and so will increase long-acting 05/19/2024. He remains with out much insight however he agrees that he feels overall better on Risperdal and says he will remain taking it. Patient will be returning to his parents who are supportive. Plan: Healthcare proxy affirmed; HCP signed CV (replacing court order) Q 15 minute checks Medications: Risperdal liquid p.o. 2 [address]-ORDERED Seroquel p.r.n. for anxiety +/-Wellbutrin based on pt; ER 150mg daily (pt request this instead of Wellbutrin IR 75 mg daily) Pending: Risperdal Uzedy 125mg on 08/22/24 (on 07/27 received Risperdal Uzedy 100 mg) Past med trials: Vraylar: Did not seem to work Medications on Court-ordered substituted judgment: Risperdal up to 6 mg Uzedy up to 200 mg q.2 months Clozaril Zyprexa Paliperidone/Invega including Trinza Ziprasidone Depakote Patient educated on: diagnosis and medication risk/benefits Informed Consent: understands Reason for continued inpatient stay Substantial Risk for: stable for discharge Time Spent With Patient Time: Total time managing care of this patient today ____ minutes.
[2024-08-21] MEDS: risperiDONE 0.5 MG TABLET PO (13:27)
[2024-08-21] MEDS: hydrOXYzine HCL 50 MG TABLET PO (13:27)
[2024-08-21] MEDS: Nicotine 21 MG PATCH.TD24 TRANSDERMA (15:40)
[2024-08-21] MEDS: QUEtiapine Fumarate 50 MG TABLET PO (15:54)
[2024-08-21 19:54] VITALS: BP 106/55; PULSE 81; TEMP 36.7; O2SAT 97
[2024-08-22 07:45] VITALS: BP 108/62; PULSE 67; TEMP 36.4; O2SAT 95
[2024-08-22] MEDS: risperiDONE Oral Sol 1 MG/ML SOLUTION 2 MG PO (08:19)
[2024-08-22] MEDS: buPROPion HCL 75 MG TABLET PO (08:19)
[2024-08-22 08:43] LABS: Alanine Aminotransferase 39 U/L (0-40); Albumin Level 4.5 g/dL (3.5-5.0); Alkaline Phosphatase 64 U/L (39-117); Anion Gap 12 (12-20); Aspartate Amino Transferase 22 U/L (5-37); Blood Urea Nitrogen 16 mg/dL (9-16); Calcium 9.5 mg/dL (8.4-10.2); Carbon Dioxide 32 mmol/L (22-29); Chloride 103 mmol/L (96-108); Creatinine Clr Calc Pharmacy 100.4; Estimated Glomerular Filt Rate > 60; Glucose Random 91 mg/dL (60-115); Potassium 4.8 mmol/L (3.3-5.1); Sodium 142 mmol/L (135-145); Total Protein 7.6 g/dL (6.5-8.0)
[2024-08-22] MEDS: Nicotine Polacrilex 2 MG GUM 4 MG BUCCAL (09:57)
--- NOTE | 2024-08-22 10:16 | PM.PSYDC ---
DS: Providers Provider Date of Service: 08/22/24 Date of admission: 07/17/24 18:41 Date of discharge: 08/22/24 Primary care physician: Unknown Physician Attending physician on admission: Toni Balderas Attending physician on discharge: Toni Balderas DS: Diagnosis Discharge Diagnosis (1) Schizoaffective disorder, bipolar type: Status: Acute (2) Anxiety: Status: Chronic DS: Medications Discharge Medications Home Medications: Previous Rx's ?Medication ?Instructions ?Recorded bupropion HCl 100 mg tablet,12 hr 100 mg PO DAILY 30 days #30 tabs 08/22/24 sustained-release (Wellbutrin SR) clonidine HCl 0.1 mg tablet 0.1 mg PO Q4H PRN anxiety 30 days 08/22/24 #90 tabs hydroxyzine HCl 50 mg tablet 50 mg PO Q6H PRN mild 08/22/24 anxiety/insomnia 30 days #90 tabs nicotine (polacrilex) 4 mg buccal 4 mg buccal Q2H PRN Nicotine 08/22/24 lozenge Cravings 30 days #108 ea nicotine 21 mg/24 hr daily 21 mg transdermal DAILY PRN 08/22/24 transdermal patch smoking cessation 28 days #28 ea quetiapine 50 mg tablet 50 mg PO QID PRN mod to severe 08/22/24 anxiety 30 days #90 tabs risperidone 125 mg/0.35 mL 125 mg (0.35 mL) subcut Q28D 28 08/22/24 subcutaneous extend release susp days #0.35 mL syringe (Uzedy) Mental Status Exam Mental Status Exam Narrative: Pt is alert and oriented; behavior is cooperative, calm, friendly on approach; still odd behaviors, talking to himself, not bathing; able to tolerate longer discussions and remain organized patient is not in distress; dressed in casual attire, messy hair and malodorous; mood is described as good and affect more calm; eye contact improved; Speech is normal volume and rate; no psychomotor agitation; thought process is more goal directed but concrete; Thought content is on discharge; still appears internally preoccupied; denies SI; no HI; Denies AVH however patient appears to be intermittently responding to internal stimuli. Patients insight and judgment impaired but improved and adequate. Data Data Completed and Pending Completed studies during hospitalization [Text1]: 08/22/24 08:15 Sodium 142 Potassium 4.8 D Chloride 103 Carbon Dioxide 32 H Anion Gap 12 BUN 16 Creatinine 1.18 Estim Creat Clear Calc 100.4 Estimated GFR > 60 Random Glucose 91 Calcium 9.5 Total Bilirubin 1.0 AST 22 ALT 39 Alkaline Phosphatase 64 Total Protein 7.6 Albumin 4.5 DS: Summary Hospital Course Hospital Course: Patient is a 28-year-old male with history of schizoaffective disorder, bipolar type, history of polysubstance abuse who presents via EMS for manic and delusional behaviors. Patient is a poor historian, lying in bed, not opening his eyes, and offering little information. Initially, patient was talking with the nurse but 1 minute later, as soon as credit underwriter walked in to talk with patient, he kept his eyes closed and refused to respond at all to credit underwriter. A little later on on re-approached, patient is willing to briefly engage. He says that he is doing good. On inquiry, he says I have no idea why he is here in the hospital; credit underwriter shared that his parents felt he was unsafe, disorganized and destroying property which he denies, even though credit underwriter mentioned that his mother showed pictures of damaging his apartment. Patient refuses to sign in and remains on a 12 B. Patient took risperidone (he initially spit it out but then took it) this morning and says he will keep taking it but refuses the long-acting injectable. he denies any AVH, SI or HI. Patient's mother, Patsy who is also patient's healthcare proxy reported collateral. She says he has not been taking medications consistently has been very disorganized, has destroyed the apartment that she and her own and pay for, including smashing several television sets, multiple cell phones, refrigerators and other appliances and items, taking off all the door in the apartments (she provided pictures); she says he has been disorganized, not showering at all attending to ADLs, acting confused, and doing strange things such as snorting salt... Patient yelling at her, demanding things such as groceries which she buys and which he then proceeds to throwing the trash... Formulation/clinical reasoning: Patient has well documented history of schizoaffective disorder, bipolar type. Patient had very similar presentation on his last admission January 2024, but responded well with p.o. Risperdal and then on long-acting Risperdal product Tyra (also on Wellbutrin XL 150 mg), organized, attending to ADLs, in good behavioral and impulse control and even developed some limited insight, briefly acknowledging that he did have paranoid delusions and auditory hallucinations prior to taking medication... However, patient has a long history of medication non-adherence and decompensation which is again resulting in need for psychiatric hospitalization. On the unit, he is with odd behaviors and malodorous (patient did ask for and ostensibly took a shower but emerged remaining malodorous and with matted hair). Patient is currently taking a low dose of Risperdal (though intermittently refused); however this dose is inadequate, patient does not want medication adjustments and refuses long-acting inectable Risperdal which is essential to sustained function in the community; he has no insight at all and credit underwriter is convinced that patient will stop taking medications (or take them inadequately) immediately if he were to discharge. Invoke HCP: Patient has a signed healthcare proxy on file. Patient is disorganized and unable to function in the community; he does not have capacity to make medical decisions for himself and so credit underwriter will invoke this healthcare proxy. Hospital course: / Patient difficult with which to engage and denies all psychiatric symptoms. He says I want to get off medication... Nursing Faculty shares his family's concerns about his behaviors but patient tells credit underwriter I was doing good at home... Patient talking to credit underwriter holding his hand in front of his mouth. At 1 point patient stopped talking to credit underwriter completely, keeping his eyes closed but then responded later. Patient does not want to stay in the hospital and Nursing Faculty informed patient of involuntary commitment and invoking healthcare proxy. Patient's mother present who gave more collateral. She says that after his last discharge, he refused to get long-acting injectable and would not take medication. In March he took a low dose of Risperdal for 2 days but then not again until a couple of weeks later. At that time he took Risperdal 2 mg b.i.d. for 10 days and she reports it was the best days ever... That patient was doing well. However he stopped medication and again became disorganized. She says that patient has destroyed the apartment and shows credit underwriter multiple pictures of broken televisions, other furniture, flipping over the refrigerator... Patient opened all the drawers throughout the apartment for some reason leaving them open; took off all the anterior doors off the hinges; she says that he broke the furnace somehow and the apartment complex was without heat; now the upstairs Renter is now moving out because does not want to have to deal with the heat going off. She says he took his bed out and put it in the yd; whenever she buys him food he immediately deems it into the trash. She said over the past couple weeks patient has been increasingly agitated and aggressive, once posturing aggressively towards his father; patient angrily threatened his mom yelling leave this house or I'll push you again... , yelling in her face with spittle coming out of his mouth.. Mother says she is scared, felt threatened and left. She said she called the police who know the family; she reports that patient postured aggressively towards 1 of the police officers but because the officer knew him, told his partner to stand down and they thus brought him to the hospital 07/20 pt remains psychotic, talking to himself; patient is difficult with which to engage. Nursing observing patient cheeking Risperdal and spitting out the garbage. Nursing Faculty discussed taking Risperdal with patient who has some ambivalence and told credit underwriter he would take it but then that he did not want it and needed something that would help both sleep and drive... He then said he would take it even it increased dose of 2 mg b.i.d. -Patient remains with bizarre behaviors. Patient does not look at credit underwriter when talking; during conversation he will intermittently stop talking in the middle of conversation, stare off, sometimes muttering to himself and then restart talking... Patient lining up sugar packets and cards on his bed in specific ways; in the milieu, credit underwriter observed patient jumping on a chair and hopping around in the kitchen 07/21 Nursing continue to observe patient cheeking Risperdal than spitting it out. Remains difficult with which to engage and will sometimes not respond to credit underwriter at all. Remains with odd, behaviors and internally preoccupied -switch to liquid Risperdal -Patient remains with disorganized behaviors; patient laughing out loud. Nursing Faculty observed patient going into the kitchen, taking something out of the refrigerator, sitting down in a chair and waiting a few sec and then putting it back in the refrigerator; patient would then going to his room, run around his bed and then back into the kitchen to repeat the same behavior. -patient had white sticky substance covering the length of multiple pigtails in his hair; credit underwriter asked about this and patient said it was tooth paste. Nursing Faculty asked what for and patient said I just woke up this way... pt remains floridly psychotic with disorganized speech and behavior. Patient cannot distinguish reality from delusion. Pt is fully incapable of caring for himself in the community and would not be able to acquire food or skilled nursing on his own; and on his own he would be vulnerable to predation. He has no insight at all into his psychiatric illness or his need for medication and is only taking Liquid Risperdal since he likes the taste of it. Were patient to discharge today, he would very soon cease taking medication. Petitioned the court for involuntary commitment and substituted judgment Patient civilly committed Patient started on Uzedy 100mg Patient continued on Risperdal 2 mg b.i.d. as an overlap. On Uzedy Patient improved some and was able to tolerate conversations for a little longer. However he remained internally preoccupied, with odd behaviors, no insight at all, not believing at psychiatric illness or that he needed medication and frequently said he would stopped taking medications once discharged. Patient also very ambivalent about taking Wellbutrin, wanting it started or stopped throughout the day; he would ask for different variations of PRNs and would also repeatedly ask for Concerta despite numerous conversations about this. Patient had brief moments of insight and once said my thoughts are too mixed up in my head where i'm not sure what's real anymore....is risperidone the right medicine? then i'll stay on it...i get lost in this imaginary world. But this insight quickly evaporated and patient returned to not believing he had a psychiatric illness, denying any AVH and insisting that he does not need medications. Patient also continued to mostly deny that he had any disorganized behaviors prior to this admission despite there being numerous pictures of his apartment. Although he had improved, his improvements remain minimal. He continued to be disorganized in behavior, internally preoccupied, driven by undisclosed paranoid ideations and AH (which he later acknowledged)... Disheveled and malodorous and without insight. Over the subsequent days it became increasingly obvious that patient had plateaued and his psychotic symptoms persisted, his functioning impaired. In his psychotic confusion he had a very difficult time discussing or even identifying problematic symptoms, resulting in ever-changing requests for p.r.n. medication. It was clear that Uzedy 100mg qmonth is too low a dose. During a moment of vulnerability patient acknowledged that he was having auditory hallucinations and asked for more risperidone p.o.. He also asked credit underwriter if he could have a higher dose of the long-acting injectable the next time it was due. To address this deficit, patient was restarted on Risperdal 2 mg b.i.d. p.o.. After p.o. Risperdal was restarted, patient did improve. Patient was much more able to sit and have an organized discussion for longer periods of time, interacting appropriately, and asking relevant questions. Patient's mother was the affirmed healthcare proxy. She signed his CV and agreed to have Risperdal Uzedy dose increased to 125 mg q.month. Patient was also able to conclude that he wanted to be on Wellbutrin SR 100 mg which was started as well. Although patient still lacked insight, and was likely still with some amount of psychotic symptoms, he was doing well enough and able to return home to his supportive family. Patient continued to agree to getting the long-acting injectable and said he will remain adherent. Patient's mother also felt he had significantly improved and that he was able to return home. Patient agreed to follow-up with credit underwriter after few weeks to assess if increased Risperdal Uzedy 125mg was effective and tolerable. Medication: Risperdal Uzedy dose increased to 125 mg q.month Wellbutrin SR 100 mg daily Past med trials: Pranav: Did not seem to work Time spent discussing smoking cessation with patient: 3 to 10 minutes Status at Discharge Functional status at discharge: independent ambulation Overall status at discharge: patient is progressing back to baseline Time Spent with Patient Time attestation: Total time managing care of this patient today 40____ minutes. Time spent: Greater than 30 minutes Specific discharge activities: Met with patient; met with patient's mother and father; charting; prescription Discharge Plan Discharge Anticipated Discharge Date/Time: 08/22/24 12:45 Patient Disposition: Home, Self-Care Discharge Diagnosis: Schizoaffective disorder, bipolar type Referrals: [facility] Visiting RN [Other] - 08/22/24 (fax [phone] Visiting RN to start at D/C ) [facility] Intake with KATRIN BABCOCK [Other] - 08/29/24 11:00 am (This is an in-person appointment and you will need to make this appointment in order for you to have your psychiatric appointment. ) [facility] Psyche with YULISSA MARK [Other] - 09/25/24 9:00 am (After this appointment you can change to the [place] office if that is preferable. ) [facility] Psyche Appt with MARILYN Sauceda [Other] - 09/06/24 11:00 am (Misty will act as a bridge for one month until [facility] psychiatry picks up. ) PCP Dr. William Curry [Other] - 08/31/24 2:00 pm (Nurse Practitioner will be Shannon Goodwin) Discharge Medications: New nicotine 21 mg/24 hr Patch 24 Hour 21 mg transdermal DAILY PRN (Reason: smoking cessation) 28 Days Qty: 28 0RF Rx Instructions: remove at bedtime hydroxyzine HCl 50 mg Tablet 50 mg PO Q6H PRN (Reason: mild anxiety/insomnia) 30 Days Qty: 90 0RF quetiapine 50 mg Tablet 50 mg PO QID PRN (Reason: mod to severe anxiety) 30 Days Qty: 90 0RF Uzedy 125 mg/0.35 mL Suspension,Extended Rel Syring 125 mg subcut Q28D 28 Days Qty: 0.35 0RF Rx Instructions: last dose on 08/22/24 bupropion HCl [Wellbutrin SR] 100 mg tablet sustained-release 12 hr 100 mg PO DAILY 30 Days Qty: 30 0RF Continued clonidine HCl 0.1 mg Tablet 0.1 mg PO Q4H PRN (Reason: anxiety) 30 Days Qty: 90 0RF Protocol: Hold for SBP< HOLD for SBP < : 90 nicotine (polacrilex) 4 mg Lozenge 4 mg buccal Q2H PRN (Reason: Nicotine Cravings) 30 Days Qty: 108 0RF Discontinued bupropion HCl 150 mg Tablet Extended Release 24 Hr 150 mg PO DAILY 30 Days Qty: 30 0RF risperidone 2 mg Tablet 2 mg PO DAILY PRN (Reason: agitation) 30 Days Qty: 30 0RF Uzedy 100 mg/0.28 mL suspension,extended rel syring 100 mg subcut Q28D 28 Days Qty: 0.28 0RF Rx Instructions: due on 01/30/24 Discharge Orders: Discharge Order (Routine); Ordered 08/22/24 Ordered By: Toni Balderas Diet: Regular diet Activity on Discharge: As tolerated Stand Alone Forms: Patient Portal Discharge page, Community Support Print Language: Serbian Care Plan Goals: Maintain mood and safe behaviors Take medications as prescribed Continue to pursue sobriety Practice coping skills Continue with outpatient providers and reach out to them as needed Health Concerns: Mood stability and behaviors Sobriety Plan of Treatment: Follow up with your PCP, psychiatric provider and other outpatient providers regarding above concerns Take medications as prescribed Assessment: Risk assessment at time of discharge:? Patient was interviewed prior to discharge and found to be fully oriented and without any SI or HI. Patient has improved insight and judgment and wants to continue treatment. Patient is not in imminent risk of harm to self or others and has a safety plan that includes presenting to the closest ER or calling 911 if feeling unsafe.? Patient has been observed closely by nursing and unit staff throughout admission; patient has not engaged in any behaviors that suggest dangerousness to self or others and has demonstrated appropriate behaviors and impulse control Discharge Date/Time: 08/22/24 13:22
[2024-08-22] MEDS: risperiDONE ER 125 MG/0.35 ML SUSER.SYR SUBCUT (10:44)
== END 2024-08-22 13:22 | disposition home or self-care (01) | DRG 750 ==
LOC: HO.ED 18:02 → HO.PM5 20:50
PROVIDERS: Admitting Provider Clinical Nurse Specialist Psychiatric/Mental Health, Adult; Emergency Provider Emergency Medicine; Visit Provider Psychiatry & Neurology Psychiatry
DX: F25.0 Schizoaffective disorder, bipolar type (principal); Z91.148 Patient's other noncompliance with medication regimen for other reason; F17.210 Nicotine dependence, cigarettes, uncomplicated; Z71.6 Tobacco abuse counseling; F90.9 Attention-deficit hyperactivity disorder, unspecified type; F41.9 Anxiety disorder, unspecified; Z20.822 Contact with and (suspected) exposure to COVID-19; Z79.899 Other long term (current) drug therapy
CPT/HCPCS: 0241U; 36415; 80048; 80053; 80061; 80076; 80307; 81003; 82565; 82607; 82746; 83036; 83690; 83735; 84439; 84443; 85025; 93005; 99285; J2799; S9485

== ENCOUNTER 2024-07-17 18:41 | Outpatient (BNV) | payer OTHER, SELFPAY | END 2024-07-29 11:40 | PROVIDERS: Admitting Provider Clinical Nurse Specialist Psychiatric/Mental Health, Adult; Emergency Provider Emergency Medicine; Visit Provider Internal Medicine Cardiovascular Disease | DX: Z13.6 Encounter for screening for cardiovascular disorders (principal) | CPT/HCPCS: 93010 ==

== ENCOUNTER → 2024-07-17 18:41 | Outpatient (BNV) | payer OTHER, SELFPAY | PROVIDERS: Admitting Provider Clinical Nurse Specialist Psychiatric/Mental Health, Adult; Emergency Provider Emergency Medicine; Visit Provider Psychiatry & Neurology Psychiatry | DX: F25.0 Schizoaffective disorder, bipolar type (principal); F41.9 Anxiety disorder, unspecified | CPT/HCPCS: 99231; 99232 ==

== ENCOUNTER 2024-09-11 11:14 | Outpatient (AMB) | payer OTHER, SELFPAY ==
--- NOTE | 2024-09-11 11:16 | A.OFFPSYCH_ITS ---
Intake Intake Visit Reasons: [facility] Account Liaison Hospice Required: No Allergies strawberry Allergy (Mild, Verified 07/17/24 14:35) Itching cefazolin Allergy (Unknown, Verified 07/17/24 14:35) Itching sulfamethoxazole [From Bactrim] Allergy (Unknown, Verified 07/17/24 14:35) Itching trimethoprim [From Bactrim] Allergy (Unknown, Verified 07/17/24 14:35) Itching lorazepam [From Ativan] Adverse Reaction (Verified 07/17/24 14:35) Agitated lithium Adverse Reaction (Unknown, Uncoded 11/29/23 21:03) other Medication List - Last Reconciled 09/11/24 by Soco Sauceda APRN bupropion HCl SR (Wellbutrin SR) 100 mg PO DAILY 30 days clonidine HCl 0.1 mg See Protocol PO Q4H PRN 30 days hydroxyzine HCl 50 mg PO Q6H PRN 30 days nicotine 21 mg transdermal DAILY PRN 28 days nicotine (polacrilex) 4 mg buccal Q2H PRN 30 days quetiapine 50 mg PO QID PRN 30 days risperidone ER (Uzedy) 125 mg (0.35 mL) subcut Q28D 28 days HPI- Psychiatric Chief Complaint: [facility] HPI Narrative: Met with patient and his mother HCP, and Dr Balderas for Bridge appt prior to his outpat psychiatry appt. Pt reports feeling much better on meds: Uzedy and wellbutrin. Pt reports feeling much happier and clear thinking. He denies hearing voices. 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 he is functioning well; attending to ADLs. He has first psychiatry appt september 25. he is due for next injection on September 21. Agreeable to increase Uzedy to 250mg IM q8 weeks. No SI no HI no disorganization. affect bright and appropriate. Mother concurs with pt report. He is much improved. Past Psychiatric History: Patient's mother reports that in 2016 following cocaine use, patient accidentally overdosed on melatonin taking about 500 mg since he could not sleep. He was having pressured speech, weird behavior and so she took him to [facility] where he was started on Risperdal to good effect. He was discharged and almost immediately stopped taking his medications and started smoking cannabis again daily. In 2019, patient had his 2nd psychiatric hospitalization where he was floridly manic, caring garbage and recycling from the garage to his room, not sleeping, not eating, grandiose themes saying he was going to run for mayor and live on only water, not making sense and rambling. He was again brought to [facility], again started on Risperdal and 2 weeks later discharged. Patient fell into the same pattern of going off medication and smoking cannabis when he was again manic admitted to [facility] in the fall of 2019. Same pattern again until this admission. Mother reports patient had trial of Wellbutrin during which time he did very well and was productive Mother reports patient has history of severe anxiety starting in childhood as well as ADHD. Subjective Subjective Subjective Medication Compliance: Yes Side effects from medications: No Review of Systems Medical Review of Systems: unchanged Mental Status Exam Mental Status Exam Patient Appearance: Well Grooomed and Appropriate Patient Orientation: Person, Place, Time and Situation Level of Consciousness: Awake and Appropriate Patient Behavior: Appropriate and Cooperative Mood Description: Happy and Anxious Affect Description: Happy and Anxious Patient Cognition Impaired: No Ability to Follow Directions: Good Speech Pattern: Clear and Appropriate Memory Description: Intact Hallucinations: None Delusions: Not Present Thought Process: Intact and Goal Oriented Thought Content: positive for Intact and positive for Goal Oriented Judgement: Good Judgement and Insight: expresses good insight into illness, treatment, and recovery Assessment and Plan Assessment & Plan (1) Schizoaffective disorder, bipolar type: Status: Acute Code(s): F25.0 - Schizoaffective disorder, bipolar type (2) Anxiety: Status: Chronic Code(s): F41.9 - Anxiety disorder, unspecified Plan continue uzedy 250mg IM q 8 w continue wellbutrin SR 100mg qam continue with [facility] follow up with [facility] as planned 09/25/2024 9am Medications: Refilled nicotine remove at bedtime 21 mg transdermal DAILY 28 days PRN 28 ea 0RF smoking cessation hydroxyzine HCl 50 mg PO Q6H 30 days PRN 90 tabs 0RF mild anxiety/insomnia Discontinued quetiapine Discontinued Reason: Doctor's Order 50 mg PO QID 30 days PRN 90 tabs 0RF mod to severe anxiety clonidine HCl Discontinued Reason: Doctor's Order 0.1 mg See Protocol PO Q4H 30 days PRN 9 0 tabs 0RF anxiety nicotine (polacrilex) Discontinued Reason: Doctor's Order 4 mg buccal Q2H 30 days PRN 108 ea 0RF Nicotine Cravings Counseling and coordination of Care Medication management counseling: Effectiveness, Side effects, Dosing range, Duration, Drug interaction and Adherence Diagnosis and Prognosis Counseling: Accuracy of diagnosis, Prognosis over time, Impact of diagnosis on life functions, Impact of family relationship, Problematic behaviors secondary to diagnosis and Adequacy of current interventions Details: I spent 35 minutes reviewing the record, seeing the patient and documenting in the medical record. Counseling provided to the patient/caregiver as outlined below. Addressed patient/caregiver concerns regarding current medication regime including effective adherence. Addressed patient/caregiver concerns regarding diagnosis and prognosis including accuracy of diagnosis, prognosis over time, impact of diagnosis. Addressed patient/caregiver concerns regarding impact of recent stressors. [facility] Medical History Hyperbilirubinemia Bipolar 1 disorder Cannabis abuse ADHD Anxiety Social History Household Members: Family Household Members Other:: Mother Housing: Apartment Do you presently have visiting nurse or other home services: No Unable to assess alcohol history related to: Refusing to respond Patient Tobacco Use Status: Current someday Tobacco user Tobacco use type: Cigar e-Cigarette/Vaping Use: Never Used Second Hand Smoke Exposure: No Substance Use Type: Marijuana Advance Directives Date on File: 01/13/24 service: No Sexual orientation: Unable to collect Social History: Patient lives at home with his supportive mother and father and 2 younger siblings; graduated high school in 2016; played basketball and soccer; some college however has bounced from college to college due to anxiety, ADHD and likely subacute bipolar prodrome. Substance History: History of polysubstance abuse; not clear if patient is currently abusing substances Trauma History: None mentioned- denies hx of violence, says he was brought back to life at [facility] years ago when he holding his breath- Coding Level of Care Code Est Pt Level 4 (36093) Diagnoses Schizoaffective disorder, bipolar type F25.0 Anxiety F41.9
--- OUTSIDE RECORDS SUMMARY | 2024-09-11 12:02 | XMS_ITS | Clinical Summary ---
Author Organization [facility] Address [address] [place] [phone] Phone Care Team Providers Care It Business Analyst Name Role Phone Carlos Cabrera MD Primary [...] patient's age to complete this topic Insurance [facility] Care Teams It Business Analyst Relationship Specialty Start Date End Date Carlos Cabrera MD PCP - General 08/24/17
== END 2024-09-11 11:56 | disposition home or self-care (01) ==
LOC: HO.HOP 11:14
PROVIDERS: Visit Provider Clinical Nurse Specialist Psychiatric/Mental Health
DX: F25.0 Schizoaffective disorder, bipolar type (principal); F41.9 Anxiety disorder, unspecified
CPT/HCPCS: 99214

== ENCOUNTER → 2024-09-11 11:14 | Outpatient (BNVA) | payer OTHER, SELFPAY ==
--- NOTE | 2024-09-11 11:48 | PM.EVENT ---
Event Note Date of Service: 09/11/24 Event Note: Lymphedema Therapist met together with patient and MARILYN Gloria for follow-up appointment in-between discharge and meeting his next outpatient provider; flex o writer operator reviewed notes and concur with Juani's assessment. Time Spent With Patient Time: Total time managing care of this patient today ____ minutes.
== END ==
PROVIDERS: Visit Provider Clinical Nurse Specialist Psychiatric/Mental Health
DX: F25.0 Schizoaffective disorder, bipolar type (principal); F41.9 Anxiety disorder, unspecified
CPT/HCPCS: 92950; 99212